=== PATIENT | male | born 1980 | race Caucasian/White ===

== ENCOUNTER → 2018-01-09 08:59 | Outpatient (CLI) | payer MEDICARE, MEDICAID, SELFPAY ==
[2018-01-09 10:36] LABS: ALB/GLOB Ratio 0.9 RATIO (0.9-2.4); AST(SGOT) 66 U/L (15-37); Alanine Aminotransfer ALT/SGPT 106 U/L (16-61); Albumin, Serum 3.7 g/dL (3.2-5.0); Alkaline Phosphatase 75 U/L (45-117); Anion Gap 7 (5-15); BUN 25 mg/dL (7-18); BUN/Creat Ratio 18.9 RATIO (10-20); Calcium,Total 8.9 mg/dL (8.5-10.1); Chloride 103 mmol/L (98-107); Creatinine, Serum 1.32 mg/dL (0.70-1.30); EST Glomerular Filtration Rate 66 mL/min (>60); Est Glom Filt Rate - Afr Amer 79 mL/min (>60); Glucose 230 mg/dL (74-106); Potassium 4.2 mmol/L (3.5-5.1); Protein, Total 7.7 g/dL (6.4-8.2); Sodium Level 134 mmol/L (136-145); Thyroid Stim Hormone (TSH) 3.55 uIU/mL (0.358-3.74)
[2018-01-09 12:16] LABS: Hematocrit 45.6 % (40-54); Hemoglobin 15.5 g/dl (13.0-16.5); Mean Corpuscular Volume 88.2 fL (80-94); Mean Platelet Vol. 9.4 fl (6.2-12.0); Platelet Count 406 K/mm3 (150-450); RBC Distribution Width CV 12.9 % (11.6-14.6); RBC Distribution Width SD 41.1 fl (35.1-43.9); Red Blood Count 5.17 M/mm3 (4.6-6.2); White Blood Count 14.6 K/mm3 (4.4-11.0)
[2018-01-09 12:24] LABS: Scan Indicated on CBC? Y/N NO
== END ==
PROVIDERS: Family Provider Family Medicine; PCP Family Medicine; Visit Provider Psychiatry & Neurology Psychiatry
DX: Z79.899 Other long term (current) drug therapy (principal)
CPT/HCPCS: 36415; 80053; 80178; 84443; 85027

== ENCOUNTER → 2018-07-01 11:43 | Outpatient (CLI) | payer MEDICARE, MEDICAID, SELFPAY ==
[2018-07-01 14:08] LABS: ALB/GLOB Ratio 0.9 RATIO (0.9-2.4); AST(SGOT) 45 U/L (15-37); Alanine Aminotransfer ALT/SGPT 81 U/L (16-61); Albumin, Serum 3.8 g/dL (3.2-5.0); Alkaline Phosphatase 74 U/L (45-117); Anion Gap 10 (5-15); BUN 25 mg/dL (7-18); BUN/Creat Ratio 20.5 RATIO (10-20); Calcium,Total 9.5 mg/dL (8.5-10.1); Chloride 104 mmol/L (98-107); Creatinine, Serum 1.22 mg/dL (0.70-1.30); EST Glomerular Filtration Rate 72 mL/min (>60); Est Glom Filt Rate - Afr Amer 87 mL/min (>60); Globulin 4.2 g/dL (2.2-4.2); Glucose 383 mg/dL (74-106); Potassium 4.2 mmol/L (3.5-5.1); Sodium Level 138 mmol/L (136-145); T4 Free Direct 1.28 ng/dL (0.76-1.46); Thyroid Stim Hormone (TSH) 2.04 uIU/mL (0.358-3.74)
== END ==
PROVIDERS: Family Provider Family Medicine; PCP Family Medicine; Visit Provider Internal Medicine Endocrinology, Diabetes & Metabolism
DX: E03.9 Hypothyroidism, unspecified (principal); E11.9 Type 2 diabetes mellitus without complications
CPT/HCPCS: 36415; 80053; 84439; 84443

== ENCOUNTER → 2018-08-23 07:55 | Outpatient (CLI) | payer MEDICARE, MEDICAID, SELFPAY ==
[2018-08-23 11:08] LABS: ALB/GLOB Ratio 0.9 RATIO (0.9-2.4); AST(SGOT) 40 U/L (15-37); Alanine Aminotransfer ALT/SGPT 63 U/L (16-61); Albumin, Serum 3.7 g/dL (3.2-5.0); Alkaline Phosphatase 65 U/L (45-117); Anion Gap 5 (5-15); BUN 25 mg/dL (7-18); BUN/Creat Ratio 23.8 RATIO (10-20); Calcium,Total 9.1 mg/dL (8.5-10.1); Chloride 105 mmol/L (98-107); Creatinine, Serum 1.05 mg/dL (0.70-1.30); EST Glomerular Filtration Rate 85 mL/min (>60); Est Glom Filt Rate - Afr Amer 103 mL/min (>60); Globulin 3.9 g/dL (2.2-4.2); Glucose 164 mg/dL (74-106); Potassium 4.5 mmol/L (3.5-5.1); Protein, Total 7.6 g/dL (6.4-8.2); Sodium Level 139 mmol/L (136-145); T4 Free Direct 1.22 ng/dL (0.76-1.46); Thyroid Stim Hormone (TSH) 0.98 uIU/mL (0.358-3.74)
== END ==
PROVIDERS: Family Provider Family Medicine; PCP Family Medicine; Referring Provider Internal Medicine Endocrinology, Diabetes & Metabolism; Visit Provider Internal Medicine Endocrinology, Diabetes & Metabolism
DX: E03.9 Hypothyroidism, unspecified (principal); E11.9 Type 2 diabetes mellitus without complications
CPT/HCPCS: 36415; 80053; 84439; 84443

== ENCOUNTER → 2018-11-28 07:35 | Outpatient (CLI) | payer MEDICARE, MEDICAID, SELFPAY ==
[2018-11-28 11:23] LABS: AST(SGOT) 34 U/L (15-37); Alanine Aminotransfer ALT/SGPT 86 U/L (16-61); Albumin, Serum 3.8 g/dL (3.2-5.0); Alkaline Phosphatase 103 U/L (45-117); Anion Gap 9 (5-15); BUN 22 mg/dL (7-18); Calcium,Total 8.9 mg/dL (8.5-10.1); Chloride 103 mmol/L (98-107); Cholesterol 154 mg/dL (200); EST Glomerular Filtration Rate 80 mL/min (>60); Est Glom Filt Rate - Afr Amer 97 mL/min (>60); Globulin 3.8 g/dL (2.2-4.2); Glucose 356 mg/dL (74-106); High Density Lipoprotein 33 mg/dL; Potassium 4.2 mmol/L (3.5-5.1); Protein, Total 7.6 g/dL (6.4-8.2); Sodium Level 134 mmol/L (136-145); T4 Free Direct 1.38 ng/dL (0.76-1.46); Thyroid Stim Hormone (TSH) 3.37 uIU/mL (0.358-3.74); Triglycerides 357 mg/dL; Very Low Density Lipoprotein 71 mg/dL (5-40)
[2018-11-28 11:34] LABS: Hemoglobin A1c 9.2 % (4.2-6.3)
== END ==
LOC: LAB 07:39 → MTLAB 07:39
PROVIDERS: Family Provider Family Medicine; PCP Family Medicine; Referring Provider Internal Medicine Endocrinology, Diabetes & Metabolism; Visit Provider Internal Medicine Endocrinology, Diabetes & Metabolism
DX: E11.65 Type 2 diabetes mellitus with hyperglycemia (principal); R94.5 Abnormal results of liver function studies
CPT/HCPCS: 36415; 80053; 80061; 83036; 84439; 84443

== ENCOUNTER → 2018-12-12 12:28 | Outpatient (CLI) | payer MEDICARE, MEDICAID, SELFPAY ==
[2018-06-14 12:34] VITALS: BMI 32.8
== END ==
PROVIDERS: Family Provider Family Medicine; PCP Family Medicine
DX: Z79.899 Other long term (current) drug therapy (principal)
CPT/HCPCS: 36415; 80178

== ENCOUNTER → 2020-03-31 07:13 | Outpatient (CLI) | payer MEDICARE, MEDICAID, SELFPAY ==
[2019-05-13 09:27] VITALS: BMI 32.8
== END ==
PROVIDERS: PCP Family Medicine
DX: Z79.899 Other long term (current) drug therapy (principal)
CPT/HCPCS: 36415; 80178

== ENCOUNTER → 2020-04-28 | Outpatient (CLI) | payer MEDICARE, MEDICAID, SELFPAY ==
[2019-05-13 09:27] VITALS: BMI 32.8
[2020-04-28 10:28] LABS: Hematocrit 46.6 % (40-54); Hemoglobin 14.9 g/dL (13.0-16.5); Mean Corpuscular Hgb 29.6 pg (27.0-32.0); Mean Corpuscular Volume 92.5 fL (80-94); Mean Platelet Vol. 9.3 fl (6.2-12.0); Platelet Count 431 K/mm3 (150-450); RBC Distribution Width CV 12.6 % (11.6-14.6); RBC Distribution Width SD 42.5 fl (35.1-43.9); Red Blood Count 5.04 M/mm3 (4.6-6.2); White Blood Count 12.2 K/mm3 (4.4-11.0)
[2020-04-28 10:41] LABS: Vitamin D,25 Hydroxy 104.7 ng/mL
[2020-04-28 10:42] LABS: Microalbumin,Random Urine 12.2 mg/L (NO RANGE EST.)
[2020-04-28 10:54] LABS: AST(SGOT) 30 U/L (15-37); Alanine Aminotransfer ALT/SGPT 57 U/L (16-61); Albumin, Serum 3.9 g/dL (3.2-5.0); Alkaline Phosphatase 83 U/L (45-117); Anion Gap 3 (5-15); BUN 21 mg/dL (7-18); BUN/Creat Ratio 23.4 RATIO (10-20); Calcium,Total 9.2 mg/dL (8.5-10.1); Chloride 108 mmol/L (98-107); Cholesterol 127 mg/dL (200); EST Glomerular Filtration Rate 101 mL/min (>60); Est Glom Filt Rate - Afr Amer 122 mL/min (>60); Free T3 2.2 pg/mL (2.18-3.98); Globulin 4.1 g/dL (2.2-4.2); Glucose 151 mg/dL (74-106); High Density Lipoprotein 36 mg/dL; Potassium 3.7 mmol/L (3.5-5.1); Sodium Level 139 mmol/L (136-145); T4 Free Direct 1.36 ng/dL (0.76-1.46); Triglycerides 239 mg/dL; Very Low Density Lipoprotein 48 mg/dL (5-40)
== END | disposition home or self-care (01) ==
LOC: MTLAB 07:32
PROVIDERS: PCP Family Medicine; Referring Provider Internal Medicine Endocrinology, Diabetes & Metabolism; Visit Provider Internal Medicine Endocrinology, Diabetes & Metabolism
DX: E11.65 Type 2 diabetes mellitus with hyperglycemia (principal); E03.9 Hypothyroidism, unspecified; E78.1 Pure hyperglyceridemia; E55.9 Vitamin D deficiency, unspecified; Z91.19 Patient's noncompliance with other medical treatment and regimen
CPT/HCPCS: 36415; 80053; 80061; 82043; 82306; 84439; 84443; 84481; 85027

== ENCOUNTER → 2020-07-02 11:45 | Outpatient (CLI) | payer MEDICARE, MEDICAID, SELFPAY ==
[2019-05-13 09:27] VITALS: BMI 32.8
[2020-07-02 15:36] LABS: Hematocrit 45.2 % (40-54); Hemoglobin 14.1 g/dL (13.0-16.5); Mean Corp Hgb Conc 31.2 g/dL (32-36); Mean Corpuscular Hgb 28.5 pg (27.0-32.0); Mean Corpuscular Volume 91.3 fL (80-94); Mean Platelet Vol. 9.7 fl (6.2-12.0); Platelet Count 408 K/mm3 (150-450); RBC Distribution Width SD 43.2 fl (35.1-43.9); Red Blood Count 4.95 M/mm3 (4.6-6.2); White Blood Count 10.7 K/mm3 (4.4-11.0)
[2020-07-02 15:59] LABS: Lithium < 0.20 mmol/L (0.60-1.20)
[2020-07-02 16:07] LABS: ALB/GLOB Ratio 0.9 RATIO (0.9-2.4); AST(SGOT) 48 U/L (15-37); Alanine Aminotransfer ALT/SGPT 76 U/L (16-61); Albumin, Serum 3.5 g/dL (3.2-5.0); Alkaline Phosphatase 92 U/L (45-117); Anion Gap 6 (5-15); BUN 21 mg/dL (7-18); BUN/Creat Ratio 26.2 RATIO (10-20); Calcium,Total 8.7 mg/dL (8.5-10.1); Chloride 106 mmol/L (98-107); Cholesterol 164 mg/dL (200); EST Glomerular Filtration Rate 115 mL/min (>60); Est Glom Filt Rate - Afr Amer 139 mL/min (>60); Glucose 175 mg/dL (74-106); High Density Lipoprotein 42 mg/dL; Potassium 4.3 mmol/L (3.5-5.1); Protein, Total 7.5 g/dL (6.4-8.2); Sodium Level 139 mmol/L (136-145); Thyroid Stim Hormone (TSH) 0.09 uIU/mL (0.358-3.74); Triglycerides 227 mg/dL; Very Low Density Lipoprotein 45 mg/dL (5-40)
[2020-07-02 16:09] LABS: Hemoglobin A1c 12.3 % (3.8-5.6)
== END ==
PROVIDERS: PCP Family Medicine
DX: F19.10 Other psychoactive substance abuse, uncomplicated (principal); R53.83 Other fatigue; Z79.899 Other long term (current) drug therapy
CPT/HCPCS: 36415; 80053; 80061; 80178; 83036; 84443; 85027

== ENCOUNTER → 2020-09-08 08:09 | Outpatient (CLI) | payer MEDICARE, MEDICAID, SELFPAY ==
[2019-05-13 09:27] VITALS: BMI 32.8
[2020-09-08 10:27] LABS: Hemoglobin A1c 11.6 % (3.8-5.6)
[2020-09-08 10:49] LABS: AST(SGOT) 44 U/L (15-37); Alanine Aminotransfer ALT/SGPT 76 U/L (16-61); Alkaline Phosphatase 101 U/L (45-117); Anion Gap 8 (5-15); BUN 34 mg/dL (7-18); BUN/Creat Ratio 28.3 RATIO (10-20); Calcium,Total 9.2 mg/dL (8.5-10.1); Chloride 103 mmol/L (98-107); EST Glomerular Filtration Rate 72 mL/min (>60); Est Glom Filt Rate - Afr Amer 87 mL/min (>60); Globulin 4.2 g/dL (2.2-4.2); Glucose 299 mg/dL (74-106); Potassium 4.1 mmol/L (3.5-5.1); Protein, Total 8.2 g/dL (6.4-8.2); Sodium Level 135 mmol/L (136-145); Thyroid Stim Hormone (TSH) 1.74 uIU/mL (0.358-3.74)
== END ==
PROVIDERS: PCP Family Medicine; Referring Provider Internal Medicine Endocrinology, Diabetes & Metabolism; Visit Provider Internal Medicine Endocrinology, Diabetes & Metabolism
DX: E11.65 Type 2 diabetes mellitus with hyperglycemia (principal); E03.9 Hypothyroidism, unspecified; E78.1 Pure hyperglyceridemia; I10 Essential (primary) hypertension; Z91.19 Patient's noncompliance with other medical treatment and regimen
CPT/HCPCS: 36415; 80053; 83036; 84443

== ENCOUNTER → 2021-01-26 09:02 | Outpatient (CLI) | payer MEDICARE, MEDICAID, SELFPAY ==
[2019-05-13 09:27] VITALS: BMI 32.8
[2021-01-26 10:24] LABS: Hematocrit 45.7 % (40-54); Hemoglobin 14.9 g/dL (13.0-16.5); Mean Corp Hgb Conc 32.6 g/dL (32-36); Mean Corpuscular Hgb 30.1 pg (27.0-32.0); Mean Corpuscular Volume 92.3 fL (80-94); Mean Platelet Vol. 9.2 fl (6.2-12.0); Platelet Count 386 K/mm3 (150-450); RBC Distribution Width CV 13.3 % (11.6-14.6); RBC Distribution Width SD 44.9 fl (35.1-43.9); Red Blood Count 4.95 M/mm3 (4.6-6.2); White Blood Count 15.5 K/mm3 (4.4-11.0)
[2021-01-26 10:49] LABS: Vitamin D,25 Hydroxy 78.2 ng/mL
[2021-01-26 10:54] LABS: Hemoglobin A1c 9.8 % (3.8-5.6)
[2021-01-26 11:21] LABS: AST(SGOT) 72 U/L (15-37); Alanine Aminotransfer ALT/SGPT 108 U/L (16-61); Albumin, Serum 3.8 g/dL (3.2-5.0); Alkaline Phosphatase 71 U/L (45-117); Anion Gap 6 (5-15); BUN 21 mg/dL (7-18); BUN/Creat Ratio 21.7 RATIO (10-20); Calcium,Total 9.9 mg/dL (8.5-10.1); Chloride 106 mmol/L (98-107); Cholesterol 122 mg/dL (200); Creatinine, Serum 0.97 mg/dL (0.70-1.30); EST Glomerular Filtration Rate 92 mL/min (>60); Est Glom Filt Rate - Afr Amer 111 mL/min (>60); Glucose 157 mg/dL (74-106); High Density Lipoprotein 47 mg/dL; Potassium 4.1 mmol/L (3.5-5.1); Protein, Total 7.8 g/dL (6.4-8.2); Sodium Level 138 mmol/L (136-145); Thyroid Stim Hormone (TSH) 0.86 uIU/mL (0.358-3.74); Triglycerides 167 mg/dL; Very Low Density Lipoprotein 33 mg/dL (5-40)
== END ==
PROVIDERS: PCP Family Medicine
DX: E55.9 Vitamin D deficiency, unspecified (principal); F19.10 Other psychoactive substance abuse, uncomplicated; R53.83 Other fatigue; E78.2 Mixed hyperlipidemia; E11.65 Type 2 diabetes mellitus with hyperglycemia; E78.1 Pure hyperglyceridemia; E03.9 Hypothyroidism, unspecified; Z79.899 Other long term (current) drug therapy; Z91.19 Patient's noncompliance with other medical treatment and regimen
CPT/HCPCS: 36415; 80053; 80061; 80178; 82043; 82306; 83036; 84443; 85027

== ENCOUNTER → 2021-04-28 16:31 | Outpatient (CLI) | payer MEDICARE, MEDICAID, SELFPAY ==
[2019-05-13 09:27] VITALS: BMI 32.8
[2021-04-28 18:17] LABS: Microalbumin,Random Urine < 5.0 mg/L (NO RANGE EST.)
[2021-04-28 18:45] LABS: ALB/GLOB Ratio 1.2 RATIO (0.9-2.4); AST(SGOT) 109 U/L (15-37); Alanine Aminotransfer ALT/SGPT 154 U/L (16-61); Albumin, Serum 4.4 g/dL (3.2-5.0); Alkaline Phosphatase 85 U/L (45-117); Anion Gap 9 (5-15); BUN 22 mg/dL (7-18); BUN/Creat Ratio 18.3 RATIO (10-20); Calcium,Total 10.1 mg/dL (8.5-10.1); Chloride 98 mmol/L (98-107); EST Glomerular Filtration Rate 72 mL/min (>60); Est Glom Filt Rate - Afr Amer 87 mL/min (>60); Globulin 3.7 g/dL (2.2-4.2); Glucose 391 mg/dL (74-106); Potassium 4.9 mmol/L (3.5-5.1); Protein, Total 8.1 g/dL (6.4-8.2); Sodium Level 134 mmol/L (136-145); T4 Free Direct 1.44 ng/dL (0.76-1.46); Thyroid Stim Hormone (TSH) 1.29 uIU/mL (0.358-3.74)
== END ==
PROVIDERS: PCP Family Medicine; Referring Provider Internal Medicine Endocrinology, Diabetes & Metabolism; Visit Provider Internal Medicine Endocrinology, Diabetes & Metabolism
DX: E11.65 Type 2 diabetes mellitus with hyperglycemia (principal); E03.9 Hypothyroidism, unspecified; I10 Essential (primary) hypertension; F19.20 Other psychoactive substance dependence, uncomplicated; F31.9 Bipolar disorder, unspecified
CPT/HCPCS: 36415; 80053; 82043; 84439; 84443

== ENCOUNTER → 2021-05-18 08:22 | Outpatient (CLI) | payer MEDICARE, MEDICAID, SELFPAY ==
[2021-05-02 06:43] VITALS: BMI 32.8
[2021-05-19 09:10] LABS: HEPATITIS B SURFACE AG Negative (Negative); Hepatitis A AB, Total Negative (Negative); Hepatitis A IgM Antibody Negative (Negative); Hepatitis B Core AB IgM Negative (Negative); Hepatitis B Core Ab Total Negative (Negative); Hepatitis C Ab <0.1 s/co ratio (0.0-0.9)
[2021-05-19 16:49] LABS: Hep B Surface Antibodies Non Reactive (.)
== END ==
PROVIDERS: PCP Family Medicine; Referring Provider Internal Medicine Endocrinology, Diabetes & Metabolism; Visit Provider Internal Medicine Endocrinology, Diabetes & Metabolism
DX: R79.89 Other specified abnormal findings of blood chemistry (principal)
CPT/HCPCS: 36415; 86704; 86705; 86706; 86708; 86709; 86803; 87340

== ENCOUNTER → 2021-08-03 09:54 | Outpatient (CLI) | payer MEDICARE, MEDICAID, SELFPAY ==
[2021-08-03 12:30] LABS: Hematocrit 43.9 % (40-54); Hemoglobin 14.1 g/dL (13.0-16.5); Mean Corp Hgb Conc 32.1 g/dL (32-36); Mean Corpuscular Hgb 29.4 pg (27.0-32.0); Mean Corpuscular Volume 91.5 fL (80-94); Mean Platelet Vol. 9.5 fl (6.2-12.0); Platelet Count 434 K/mm3 (150-450); RBC Distribution Width CV 13.2 % (11.6-14.6); RBC Distribution Width SD 45.4 fl (35.1-43.9); White Blood Count 11.3 K/mm3 (4.4-11.0)
[2021-08-03 13:01] LABS: Hemoglobin A1c 10.6 % (3.8-5.6)
[2021-08-03 13:08] LABS: ALB/GLOB Ratio 0.8 RATIO (0.9-2.4); AST(SGOT) 45 U/L (15-37); Alanine Aminotransfer ALT/SGPT 90 U/L (16-61); Albumin, Serum 3.6 g/dL (3.2-5.0); Alkaline Phosphatase 121 U/L (45-117); Anion Gap 8 (5-15); BUN 35 mg/dL (7-18); BUN/Creat Ratio 34.7 RATIO (10-20); Calcium,Total 9.6 mg/dL (8.5-10.1); Chloride 97 mmol/L (98-107); Cholesterol 108 mg/dL (200); Creatinine, Serum 1.01 mg/dL (0.70-1.30); EST Glomerular Filtration Rate 88 mL/min (>60); Est Glom Filt Rate - Afr Amer 106 mL/min (>60); Globulin 4.3 g/dL (2.2-4.2); Glucose 627 mg/dL (74-106); High Density Lipoprotein 46 mg/dL; Potassium 4.4 mmol/L (3.5-5.1); Protein, Total 7.9 g/dL (6.4-8.2); Sodium Level 129 mmol/L (136-145); Thyroid Stim Hormone (TSH) 0.75 uIU/mL (0.358-3.74); Triglycerides 184 mg/dL; Very Low Density Lipoprotein 37 mg/dL (5-40)
== END ==
PROVIDERS: PCP Family Medicine
DX: F19.10 Other psychoactive substance abuse, uncomplicated (principal); R53.83 Other fatigue; E55.9 Vitamin D deficiency, unspecified; E78.5 Hyperlipidemia, unspecified; Z79.899 Other long term (current) drug therapy
CPT/HCPCS: 36415; 80053; 80061; 80178; 83036; 84439; 84443; 85027

== ENCOUNTER 2021-11-28 08:02 | Outpatient (CLI) | payer MEDICARE, MEDICAID, SELFPAY ==
[2021-11-28 10:44] LABS: Vitamin D,25 Hydroxy 90.2 ng/mL
[2021-11-28 10:49] LABS: ALB/GLOB Ratio 0.9 RATIO (0.9-2.4); AST(SGOT) 46 U/L (15-37); Alanine Aminotransfer ALT/SGPT 79 U/L (16-61); Albumin, Serum 3.8 g/dL (3.2-5.0); Alkaline Phosphatase 89 U/L (45-117); Anion Gap 6 (5-15); BUN 30 mg/dL (7-18); BUN/Creat Ratio 23.4 RATIO (10-20); Calcium,Total 9.6 mg/dL (8.5-10.1); Chloride 100 mmol/L (98-107); Cholesterol 119 mg/dL (200); Creatinine, Serum 1.28 mg/dL (0.70-1.30); EST Glomerular Filtration Rate 66 mL/min (>60); Est Glom Filt Rate - Afr Amer 80 mL/min (>60); Globulin 4.4 g/dL (2.2-4.2); Glucose 395 mg/dL (74-106); High Density Lipoprotein 40 mg/dL; Potassium 4.4 mmol/L (3.5-5.1); Protein, Total 8.2 g/dL (6.4-8.2); Sodium Level 133 mmol/L (136-145); Thyroid Stim Hormone (TSH) 0.99 uIU/mL (0.358-3.74); Triglycerides 184 mg/dL; Very Low Density Lipoprotein 37 mg/dL (5-40)
[2021-11-28 10:56] LABS: Microalbumin,Random Urine < 5.0 mg/L (NO RANGE EST.)
== END 2021-11-28 23:59 | disposition short-term general hospital (02) ==
LOC: MTLAB 08:04
PROVIDERS: PCP Family Medicine; Referring Provider Internal Medicine Endocrinology, Diabetes & Metabolism; Visit Provider Internal Medicine Endocrinology, Diabetes & Metabolism
DX: E11.65 Type 2 diabetes mellitus with hyperglycemia (principal); E03.9 Hypothyroidism, unspecified; E55.9 Vitamin D deficiency, unspecified; I10 Essential (primary) hypertension; Z91.19 Patient's noncompliance with other medical treatment and regimen
CPT/HCPCS: 36415; 80053; 80061; 82043; 82306; 82570; 84443

== ENCOUNTER → 2022-05-01 | Outpatient (CLI) | payer MEDICARE, SELFPAY ==
[2022-05-01 18:16] LABS: Absolute Lymphocyte Count 3.36 X10^3/uL (0.83-4.51); Absolute Neutrophil Count 5.8 X10^3/uL (2.0-7.7); Basophil% 0.9 % (0-1); Eosinophil# 0.98 X10^3/uL; Eosinophils% 8.7 % (0-5); Hemoglobin 13.6 g/dL (13.0-16.5); Lymphocyte # 3.36 X10^3/ul (0.83-4.51); Lymphocyte % 29.8 % (19-41); Mean Corp Hgb Conc 30.9 g/dL (32-36); Mean Corpuscular Hgb 27.9 pg (27.0-32.0); Mean Corpuscular Volume 90.3 fL (80-94); Mean Platelet Vol. 9.4 fl (6.2-12.0); Monocyte# 1.01 X10^3/uL; NRBC Flagged by Analyzer 0 % (0-5); Neutrophil # 5.79 X10^3/uL (2.7-7.7); Neutrophil % 51.3 % (47-70); Platelet Count 429 K/mm3 (150-450); RBC Distribution Width CV 14.6 % (11.6-14.6); RBC Distribution Width SD 48.6 fl (35.1-43.9); Red Blood Count 4.87 M/mm3 (4.6-6.2); White Blood Count 11.3 K/mm3 (4.4-11.0)
[2022-05-01 18:37] LABS: Vitamin D,25 Hydroxy 66.5 ng/mL
[2022-05-01 18:41] LABS: AST(SGOT) 47 U/L (15-37); Alanine Aminotransfer ALT/SGPT 59 U/L (16-61); Albumin, Serum 3.7 g/dL (3.2-5.0); Alkaline Phosphatase 69 U/L (45-117); Anion Gap 6 (5-15); BUN 23 mg/dL (7-18); BUN/Creat Ratio 21.1 RATIO (10-20); Calcium,Total 9.2 mg/dL (8.5-10.1); Chloride 112 mmol/L (98-107); Cholesterol 133 mg/dL (200); Creatinine, Serum 1.09 mg/dL (0.70-1.30); EST Glomerular Filtration Rate 80 mL/min (>60); Est Glom Filt Rate - Afr Amer 97 mL/min (>60); Globulin 3.8 g/dL (2.2-4.2); Glucose 196 mg/dL (74-106); High Density Lipoprotein 47 mg/dL; Potassium 4.4 mmol/L (3.5-5.1); Protein, Total 7.5 g/dL (6.4-8.2); Sodium Level 141 mmol/L (136-145); T4 Free Direct 1.12 ng/dL (0.76-1.46); Thyroid Stim Hormone (TSH) 0.44 uIU/mL (0.358-3.74); Triglycerides 154 mg/dL; Very Low Density Lipoprotein 31 mg/dL (5-40)
[2022-05-01 18:46] LABS: Hemoglobin A1c 9.7 % (3.8-5.6)
== END | disposition home or self-care (01) ==
PROVIDERS: PCP Family Medicine; Referring Provider Counselor Mental Health; Visit Provider Counselor Mental Health
DX: E55.9 Vitamin D deficiency, unspecified (principal); F19.10 Other psychoactive substance abuse, uncomplicated; R53.83 Other fatigue; Z79.899 Other long term (current) drug therapy
CPT/HCPCS: 80053; 80061; 80178; 82306; 83036; 84439; 84443; 85025

== ENCOUNTER → 2022-10-19 | Outpatient (CLI) | payer MEDICARE, SELFPAY ==
[2022-10-19 15:41] LABS: T4 Free Direct 1.32 ng/dL (0.76-1.46)
== END | disposition home or self-care (01) ==
PROVIDERS: PCP Family Medicine; Referring Provider Nurse Practitioner Family; Visit Provider Nurse Practitioner Family
DX: E11.9 Type 2 diabetes mellitus without complications (principal)
CPT/HCPCS: 36415; 84439; 84443

== ENCOUNTER → 2023-05-02 | Outpatient (CLI) | payer MEDICARE, SELFPAY ==
[2023-05-02 18:00] LABS: ALB/GLOB Ratio 0.8 RATIO (0.9-2.4); AST(SGOT) 85 U/L (15-37); Alanine Aminotransfer ALT/SGPT 204 U/L (16-61); Albumin, Serum 3.4 g/dL (3.2-5.0); Alkaline Phosphatase 117 U/L (45-117); Anion Gap 2 (5-15); BUN 27 mg/dL (7-18); BUN/Creat Ratio 28.5 RATIO (10-20); Calcium,Total 9.6 mg/dL (8.5-10.1); Chloride 112 mmol/L (98-107); Cholesterol 91 mg/dL (200); Creatinine, Serum 0.95 mg/dL (0.70-1.30); EST Glomerular Filtration Rate 94 mL/min (>60); Est Glom Filt Rate - Afr Amer 113 mL/min (>60); Globulin 4.3 g/dL (2.2-4.2); Glucose 91 mg/dL (74-106); High Density Lipoprotein 44 mg/dL; Potassium 4.4 mmol/L (3.5-5.1); Protein, Total 7.7 g/dL (6.4-8.2); Sodium Level 139 mmol/L (136-145); T4 Free Direct 1.14 ng/dL (0.76-1.46); Thyroid Stim Hormone (TSH) 2.68 uIU/mL (0.358-3.74); Triglycerides 129 mg/dL; Very Low Density Lipoprotein 26 mg/dL (5-40)
[2023-05-02 18:22] LABS: Microalbumin:Creatinine Ratio 79.8 mg/g CRE (<30 mg/g CRE)
== END | disposition home or self-care (01) ==
LOC: MTLAB 14:49
PROVIDERS: PCP Family Medicine; Referring Provider Nurse Practitioner Family; Visit Provider Nurse Practitioner Family
DX: E03.9 Hypothyroidism, unspecified (principal); E11.9 Type 2 diabetes mellitus without complications
CPT/HCPCS: 36415; 80053; 80061; 82043; 82570; 84439; 84443

== ENCOUNTER → 2023-09-24 | Outpatient (CLI) | payer MEDICARE, SELFPAY ==
[2023-09-24 09:36] LABS: Platelet Count 367 K/mm3 (150-450); RET-HE 30.8 pg (30-35); Reticulocyte Count 1.78 % (0.5-1.5)
[2023-09-24 09:40] LABS: Erythrocyte Sedimentation Rate 36 mm/hr (0-20)
[2023-09-24 10:26] LABS: CPK Total, Creatine Kinase 42 U/L (39-308); CRP < 2.90 mg/L (0.0-3.0); Ferritin 20 ng/mL (26-388); Free T3 1.7 pg/mL (2.18-3.98); Iron Binding Capacity,Total 417 ug/dL (250-450); LDH 159 U/L (87-241); T4 Free Direct 1.26 ng/dL (0.76-1.46); Thyroid Stim Hormone (TSH) 1.17 uIU/mL (0.358-3.74)
[2023-09-24 10:34] LABS: HIV - WCH Non-Reactive (Nonreactive)
[2023-09-25 15:08] LABS: Anti-Centromere B Ab <0.2 AI (0.0-0.9); Anti-Chromatin <0.2 AI (0.0-0.9); Anti-Jo <0.2 AI (0.0-0.9); Anti-Mitochondrial AB <20.0 Units (0.0-20.0); Anti-Scleroderma-70 AB <0.2 AI (0.0-0.9); Anti-dsDNA Ab <1 IU/mL (0-9); RNP Ab <0.2 AI (0.0-0.9); SJOGREN'S Anti-SS-A test 0.2 AI (0.0-0.9); SJOGREN'S Anti-SS-B test < 0.2 AI (0.0-0.9); Smith Ab <0.2 AI (0.0-0.9)
[2023-10-04 18:07] LABS: Albumin 3.6 g/dL (2.9-4.4); Alpha-1-Globulins 0.2 g/dL (0.0-0.4); Angiotensin Convert Enzyme 40 U/L (14-82); Anti-Smooth Muscle ABS 10 Units (0-19); Ceruloplasmin 30.4 mg/dL (16.0-31.0); Copper, Serum or Plasma 135 ug/dL (69-132); Cytoplasmic Ab (C-ANCA) <1:20 titer (Neg:<1:20); Endomysial Antibody IgA Negative (Negative); Gamma Globulin 1.1 g/dL (0.4-1.8); Haptoglobin 261 mg/dL (17-317); Immunoglobulin A 543 mg/dL (90-386); Immunoglobulin G 1041 mg/dL (603-1613); Immunoglobulin M 75 mg/dL (20-172); PROEL- TOTAL PROTEIN 7.3 g/dL (6.0-8.5); Perinuclear Ab (P-ANCA) <1:20 titer (Neg:<1:20); Transferrin 328 mg/dL (177-329); t-Transglutaminase IgA <2 U/mL (0-3)
== END | disposition home or self-care (01) ==
LOC: LAB 09:06
PROVIDERS: PCP Family Medicine; Referring Provider Internal Medicine Gastroenterology; Visit Provider Internal Medicine Gastroenterology
DX: R74.8 Abnormal levels of other serum enzymes (principal); E11.3299 Type 2 diabetes mellitus 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, unspecified eye; L73.9 Follicular disorder, unspecified
CPT/HCPCS: 36415; 82164; 82390; 82525; 82550; 82728; 82784; 83010; 83516; 83550; 83615; 84165; 84439; 84443; 84466; 84481; 85045; 85652; 86140; 86225; 86235; 86255; 86256; 86334; 86703

== ENCOUNTER → 2024-02-21 | Outpatient (CLI) | payer MEDICARE, SELFPAY ==
--- NOTE | 2024-02-21 08:29 | US_ITS ---
STUDY: ABDOMINAL ULTRASOUND - RIGHT UPPER QUADRANT; ELASTOGRAPHY REASON FOR VISIT: Male, 43 years old. Elevated liver enzymes. TECHNIQUE: Ultrasound evaluation of the right upper quadrant was performed with real-time and static marion-scale imaging. Point quantification shear wave elastography was performed (i-nexus). TECHNICAL QUALITY: Adequate. COMPARISON: None. FINDINGS: Liver: The liver measures 16.8 cm. There is normal echogenicity of the liver. The bile ducts are within normal limits. There is hepatic color flow. The direction of portal flow is hepatopetal. There is no demonstrated mass lesion. Median liver stiffness measured 8.2 kPa. Gallbladder: Normal distended gallbladder. The gallbladder wall measures 2.7 mm. There is a negative sonographic Mcnair''s sign. There is no pericholecystic fluid. There is a solitary echogenic gallstone within the gallbladder. This measures 5 mm x 4 mm x 3 mm. Common Bile Duct (C.B.D.): The common bile duct measures 4.3 mm. Pancreas: The pancreas was obscured due to overlying bowel gas. Right Kidney: Normal size of the right kidney. The right kidney measures 11.9 cm x 6.4 cm x 5.7 cm. Normal renal cortex. The right cortex measures 1.6 cm. There is no demonstrated renal mass or cyst. There is no right hydronephrosis. US/ABD Limited w/ Elastography IMPRESSION: 1. Liver stiffness measures 8.2 kPa compatible with F2-F3 (Mild to moderate liver fibrosis) Metavir score. Electronically Signed: Beto Mccormick MD at 16:15 EDT ,
[2024-02-21 09:36] LABS: Absolute Lymphocyte Count 2.25 X10^3/uL (0.83-4.51); Absolute Neutrophil Count 7.6 X10^3/uL (2.0-7.7); Basophil# 0.12 X10^3/uL; Eosinophil# 1.34 X10^3/uL; Eosinophils% 10.7 % (0-5); Hematocrit 45.4 % (40-54); Hemoglobin 13.9 g/dL (13.0-16.5); Lymphocyte # 2.25 X10^3/ul (0.83-4.51); Lymphocyte % 17.9 % (19-41); Mean Corp Hgb Conc 30.6 g/dL (32-36); Mean Corpuscular Hgb 28.4 pg (27.0-32.0); Mean Corpuscular Volume 92.8 fL (80-94); Mean Platelet Vol. 8.8 fl (6.2-12.0); Monocyte# 1.18 X10^3/uL; Monocyte% 9.4 % (0-10); NRBC Flagged by Analyzer 0 % (0-5); Neutrophil % 60.4 % (47-70); Platelet Count 449 K/mm3 (150-450); RBC Distribution Width CV 14.3 % (11.6-14.6); RBC Distribution Width SD 47.9 fl (35.1-43.9); RET-HE 33.4 pg (30-35); Red Blood Count 4.89 M/mm3 (4.6-6.2); Reticulocyte Count 1.97 % (0.5-1.5); White Blood Count 12.6 K/mm3 (4.4-11.0)
[2024-02-21 10:05] LABS: Erythrocyte Sedimentation Rate 36 mm/hr (0-20)
[2024-02-21 10:44] LABS: CPK Total, Creatine Kinase 35 U/L (39-308); CRP < 2.90 mg/L (0.0-3.0); Ferritin 11 ng/mL (26-388); Iron 70 ug/dL (65-175); Iron Binding Capacity,Total 521 ug/dL (250-450); LDH 140 U/L (87-241)
[2024-02-21 11:16] LABS: HIV - WCH Non-Reactive (Nonreactive)
[2024-02-22 14:09] LABS: Anti-Mitochondrial AB <20.0 Units (0.0-20.0)
[2024-02-29 13:08] LABS: Albumin 3.7 g/dL (2.9-4.4); Alpha-1-Globulins 0.2 g/dL (0.0-0.4); Anti-Smooth Muscle ABS 11 Units (0-19); Gamma Globulin 0.9 g/dL (0.4-1.8); HEPATITIS B SURFACE AG Negative (Negative); Haptoglobin 243 mg/dL (23-355); Hep C Antibodies Non Reactive (Non Reactive); Hepatitis A IgM Antibody Negative (Negative); Hepatitis B Core AB IgM Negative (Negative); Immunoglobulin A 472 mg/dL (90-386); Immunoglobulin E 309 IU/mL (6-495); Immunoglobulin G 969 mg/dL (603-1613); Immunoglobulin M 58 mg/dL (20-172); PROEL- TOTAL PROTEIN 7.1 g/dL (6.0-8.5)
== END | disposition home or self-care (01) ==
PROVIDERS: PCP Family Medicine; Referring Provider Internal Medicine Gastroenterology; Visit Provider Internal Medicine Gastroenterology
DX: R74.8 Abnormal levels of other serum enzymes (principal); E11.3299 Type 2 diabetes mellitus 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, unspecified eye; K75.9 Inflammatory liver disease, unspecified; L73.9 Follicular disorder, unspecified
CPT/HCPCS: 36415; 76705; 76981; 80074; 82085; 82550; 82728; 82784; 82785; 83010; 83516; 83540; 83550; 83615; 84165; 85025; 85045; 85652; 86140; 86334; 86703

== ENCOUNTER → 2024-04-17 | Outpatient (CLI) | payer MEDICARE, MEDICAID, SELFPAY ==
[2024-04-17 14:43] LABS: Hematocrit 46.1 % (40-54); Hemoglobin 13.8 g/dL (13.0-16.5); Mean Corp Hgb Conc 29.9 g/dL (32-36); Mean Corpuscular Hgb 27.8 pg (27.0-32.0); Mean Corpuscular Volume 92.9 fL (80-94); Mean Platelet Vol. 8.9 fl (6.2-12.0); Platelet Count 419 K/mm3 (150-450); RBC Distribution Width CV 13.9 % (11.6-14.6); RBC Distribution Width SD 46.8 fl (35.1-43.9); Red Blood Count 4.96 M/mm3 (4.6-6.2); White Blood Count 12.9 K/mm3 (4.4-11.0)
[2024-04-17 16:14] LABS: ALB/GLOB Ratio 0.9 RATIO (0.9-2.4); AST(SGOT) 68 U/L (15-37); Alanine Aminotransfer ALT/SGPT 137 U/L (16-61); Albumin, Serum 3.7 g/dL (3.2-5.0); Alkaline Phosphatase 120 U/L (45-117); Anion Gap 7 (5-15); BUN 20 mg/dL (7-18); BUN/Creat Ratio 26.2 RATIO (10-20); Calcium,Total 10.4 mg/dL (8.5-10.1); Chloride 103 mmol/L (98-107); Creatinine, Serum 0.76 mg/dL (0.70-1.30); EST Glomerular Filtration Rate 119 mL/min (>60); Est Glom Filt Rate - Afr Amer 145 mL/min (>60); Globulin 3.9 g/dL (2.2-4.2); Glucose 72 mg/dL (74-106); Potassium 3.7 mmol/L (3.5-5.1); Protein, Total 7.6 g/dL (6.4-8.2); Sodium Level 137 mmol/L (136-145); Thyroid Stim Hormone (TSH) 1.28 uIU/mL (0.358-3.74)
== END | disposition home or self-care (01) ==
LOC: MTLAB 11:47
PROVIDERS: PCP Family Medicine; Referring Provider Counselor Mental Health; Visit Provider Counselor Mental Health
DX: Z79.899 Other long term (current) drug therapy (principal)
CPT/HCPCS: 36415; 80053; 80178; 84443; 85027

== ENCOUNTER → 2024-04-25 | Outpatient (CLI) | payer MEDICARE, MEDICAID, SELFPAY ==
[2024-04-25 15:59] LABS: PTHIN 31.3 pg/mL (18.4-80.1)
[2024-04-25 16:23] LABS: AST(SGOT) 39 U/L (15-37); Alanine Aminotransfer ALT/SGPT 149 U/L (16-61); Albumin, Serum 3.9 g/dL (3.2-5.0); Alkaline Phosphatase 124 U/L (45-117); Anion Gap 9 (5-15); BUN 33 mg/dL (7-18); BUN/Creat Ratio 37.2 RATIO (10-20); Calcium,Total 9.8 mg/dL (8.5-10.1); Chloride 98 mmol/L (98-107); Cholesterol 95 mg/dL (200); Creatinine, Serum 0.89 mg/dL (0.70-1.30); EST Glomerular Filtration Rate 100 mL/min (>60); Est Glom Filt Rate - Afr Amer 121 mL/min (>60); Globulin 3.9 g/dL (2.2-4.2); Glucose 462 mg/dL (74-106); High Density Lipoprotein 43 mg/dL; Potassium 4.5 mmol/L (3.5-5.1); Protein, Total 7.8 g/dL (6.4-8.2); Sodium Level 131 mmol/L (136-145); Triglycerides 175 mg/dL; Very Low Density Lipoprotein 35 mg/dL (5-40)
== END | disposition home or self-care (01) ==
PROVIDERS: PCP Family Medicine; Referring Provider Family Medicine; Visit Provider Family Medicine
DX: E11.69 Type 2 diabetes mellitus with other specified complication (principal); E83.52 Hypercalcemia
CPT/HCPCS: 36415; 80053; 80061; 83970

== ENCOUNTER 2024-05-13 12:42 | Outpatient (CLI) | payer MEDICARE, MEDICAID, SELFPAY ==
[2024-05-13 16:24] LABS: ALB/GLOB Ratio 0.9 RATIO (0.9-2.4); AST(SGOT) 35 U/L (15-37); Alanine Aminotransfer ALT/SGPT 69 U/L (16-61); Albumin, Serum 3.7 g/dL (3.2-5.0); Alkaline Phosphatase 139 U/L (45-117); Anion Gap 7 (5-15); BUN 47 mg/dL (7-18); BUN/Creat Ratio 46.1 RATIO (10-20); CPK Total, Creatine Kinase 50 U/L (39-308); Calcium,Total 9.6 mg/dL (8.5-10.1); Chloride 97 mmol/L (98-107); Creatinine, Serum 1.02 mg/dL (0.70-1.30); EST Glomerular Filtration Rate 85 mL/min (>60); Est Glom Filt Rate - Afr Amer 103 mL/min (>60); Ferritin 28 ng/mL (26-388); Globulin 3.9 g/dL (2.2-4.2); Glucose 591 mg/dL (74-106); Magnesium 2.5 mg/dL (1.6-2.6); Potassium 5.1 mmol/L (3.5-5.1); Protein, Total 7.6 g/dL (6.4-8.2); Sodium Level 125 mmol/L (136-145); Thyroid Stim Hormone (TSH) 2.98 uIU/mL (0.358-3.74)
== END 2024-05-13 23:59 | disposition home or self-care (01) ==
LOC: MTLAB 12:47
PROVIDERS: PCP Family Medicine; Referring Provider Family Medicine; Visit Provider Family Medicine
DX: M79.10 Myalgia, unspecified site (principal)
CPT/HCPCS: 36415; 80053; 82550; 82728; 83735; 84443

== ENCOUNTER → 2024-05-23 | Outpatient (CLI) | payer MEDICARE, MEDICAID, SELFPAY ==
--- NOTE | 2024-05-23 14:11 | RAD_ITS ---
STUDY: X-RAY - LUMBAR SPINE REASON FOR EXAM: Male, 43 years old. radiculopathy, lumbar region TECHNIQUE: 2 view(s) of the lumbar spine were obtained. COMPARISON: None FINDINGS: Normal lumbar lordosis. There is no substantial scoliosis. There is a normal alignment of the vertebrae. Normal vertebral bodies and endplates. Normal disc space heights. The soft tissue structures are unremarkable. RAD/Lumbar Spine 2 or 3 Views IMPRESSION: Normal x-ray examination of the lumbar spine. Electronically Signed: Ezequiel Blair MD at 17:58 EDT ,
[2024-05-23 15:43] LABS: Albumin, Serum 3.5 g/dL (3.2-5.0); BUN 21 mg/dL (7-18); BUN/Creat Ratio 34.3 RATIO (10-20); Calcium,Total 9.5 mg/dL (8.5-10.1); Chloride 106 mmol/L (98-107); Creatinine, Serum 0.61 mg/dL (0.70-1.30); EST Glomerular Filtration Rate 154 mL/min (>60); Est Glom Filt Rate - Afr Amer 186 mL/min (>60); Free T3 1.6 pg/mL (2.18-3.98); Glucose 150 mg/dL (74-106); Phosphorus 3.2 mg/dL (2.5-4.9); Potassium 4.4 mmol/L (3.5-5.1); Sodium Level 138 mmol/L (136-145); T4 Free Direct 1.22 ng/dL (0.76-1.46); Thyroid Stim Hormone (TSH) 1.96 uIU/mL (0.358-3.74)
== END | disposition home or self-care (01) ==
PROVIDERS: PCP Family Medicine; Referring Provider Counselor Mental Health; Visit Provider Counselor Mental Health
DX: Z79.899 Other long term (current) drug therapy (principal)
CPT/HCPCS: 36415; 72100; 80069; 80178; 84439; 84443; 84481

== ENCOUNTER → 2024-06-12 | Outpatient (CLI) | payer MEDICARE, SELFPAY ==
--- NOTE | 2024-06-12 06:57 | MRI_ITS ---
STUDY: MRI LUMBAR SPINE WITH AND WITHOUT CONTRAST REASON FOR EXAM: Male, 43 years old. Back pain and left leg pain. TECHNIQUE: Standardized fat and water weighted pulse sequences were obtained in the sagittal and axial planes. IV 17ml Clariscan was administered for the contrast portion of the examination. COMPARISON: Lumbar spine radiographs 05/23/2024. FINDINGS: T12-L1: (Sagittal only). Normal endplates. Normal disc height, hydration and morphology. No ventral extradural defect. Normal central canal and bilateral intervertebral neural foramina. Normal lumbar lordosis. There is no substantial scoliosis. Normal conus medullaris that terminates at the lower T12 vertebral body level. L1-2: Normal endplates. Normal disc height, hydration and morphology. Normal bilateral facet joints. Normal central canal and bilateral lateral recesses. Normal bilateral intervertebral neural foramina. L2-3: Normal endplates. Normal disc height, hydration and morphology. Normal bilateral facet joints. Normal central canal and bilateral lateral recesses. Normal bilateral intervertebral neural foramina. L3-4: Normal endplates. Normal disc height, hydration and morphology. Normal bilateral facet joints. Normal central canal and bilateral lateral recesses. Normal bilateral intervertebral neural foramina. L4-5: Normal endplates. Normal disc height, hydration and morphology. Normal bilateral facet joints. Normal central canal and bilateral lateral recesses. Normal bilateral intervertebral neural foramina. L5-S1: Normal endplates. Mild disc space height narrowing with minimal degenerative vacuum phenomenon. Normal facet joints. Normal central canal and bilateral lateral recesses. Normal bilateral intervertebral neuroforamina. Normal visualized sacral ala. Normal visualized paraspinous soft tissue structures. Following IV contrast administration, there are no abnormally enhancing lesions intradurally and extradurally. MRI/Spine Lumbar W/WO Contrast IMPRESSION: 1. Normal enhanced and unenhanced MR examination of the lumbar spine. 2. No Modic changes of the vertebral endplates throughout the lumbar spine. Electronically Signed: Gabriele Garcia MD at 9:45 EDT ,
== END | disposition home or self-care (01) ==
PROVIDERS: PCP Family Medicine; Referring Provider Family Medicine; Visit Provider Family Medicine
DX: M54.16 Radiculopathy, lumbar region (principal)
CPT/HCPCS: 72158; A9575

== ENCOUNTER → 2024-08-22 | Outpatient (CLI) | payer MEDICARE, MEDICAID, SELFPAY ==
[2024-08-22 17:42] LABS: Absolute Neutrophil Count 5.8 X10^3/uL (2.0-7.7); Basophil# 0.07 X10^3/uL; Basophil% 0.8 % (0-1); Eosinophil# 0.56 X10^3/uL; Eosinophils% 6.3 % (0-5); Hematocrit 45.8 % (40-54); Mean Corp Hgb Conc 30.6 g/dL (32-36); Mean Corpuscular Hgb 28.7 pg (27.0-32.0); Mean Corpuscular Volume 93.9 fL (80-94); Mean Platelet Vol. 8.8 fl (6.2-12.0); Monocyte# 0.69 X10^3/uL; Monocyte% 7.7 % (0-10); NRBC Flagged by Analyzer 0 % (0-5); Neutrophil # 5.84 X10^3/uL (2.7-7.7); Neutrophil % 65.2 % (47-70); Platelet Count 510 K/mm3 (150-450); RBC Distribution Width CV 13.6 % (11.6-14.6); RBC Distribution Width SD 46.5 fl (35.1-43.9); Red Blood Count 4.88 M/mm3 (4.6-6.2)
[2024-08-22 18:03] LABS: Vitamin D,25 Hydroxy 50.4 ng/mL
[2024-08-22 18:10] LABS: Cholesterol 122 mg/dL (200); High Density Lipoprotein 47 mg/dL; Triglycerides 152 mg/dL; Very Low Density Lipoprotein 30 mg/dL (5-40)
[2024-08-22 18:20] LABS: Microalbumin,Random Urine 64.4 mg/L (NO RANGE EST.); Microalbumin:Creatinine Ratio 147.7 mg/g CRE (<30 mg/g CRE)
[2024-08-25 18:18] LABS: T4 Free Direct 1.56 ng/dL (0.76-1.46)
== END | disposition home or self-care (01) ==
LOC: MTLAB 15:45
PROVIDERS: PCP Family Medicine; Referring Provider Family Medicine; Visit Provider Family Medicine
DX: E11.65 Type 2 diabetes mellitus with hyperglycemia (principal); E55.9 Vitamin D deficiency, unspecified; E03.9 Hypothyroidism, unspecified
CPT/HCPCS: 36415; 80061; 82043; 82306; 82570; 83036; 84439; 84443; 85025

== ENCOUNTER → 2024-10-10 | Outpatient (CLI) | payer MEDICARE, MEDICAID, SELFPAY ==
[2024-10-10 17:51] LABS: T4 Free Direct 0.97 ng/dL (0.76-1.46)
== END | disposition home or self-care (01) ==
LOC: MTLAB 14:58
PROVIDERS: PCP Family Medicine; Referring Provider Family Medicine; Visit Provider Family Medicine
DX: E03.9 Hypothyroidism, unspecified (principal); E11.65 Type 2 diabetes mellitus with hyperglycemia
CPT/HCPCS: 36415; 83036; 84439

== ENCOUNTER → 2024-11-13 | Outpatient (CLI) | payer MEDICARE, MEDICAID, SELFPAY ==
--- NOTE | 2024-11-13 11:08 | NM_ITS ---
CLINICAL: 44-year-old diabetic male with history of early satiety. SEMI-SOLID PHASE 99m Tc SULFUR COLLOID GASTRIC EMPTYING STUDY COMPARISON: None available FINDINGS: The patient was administered 1.2 mCi of 99m Tc sulfur colloid mixed with oatmeal and consumed per os. Image acquisitions in the anterior-posterior projections were obtained for 60 minutes. There is prompt visualization of the stomach. There is no gastroesophageal reflux identified. The T ? linear fit was calculated to be 51.56 minutes, (Normal: 12-56 minutes). NM/Gastric Emptying Study IMPRESSION: 1. NORMAL 99m Tc sulfur colloid semi-solid phase (oatmeal) gastric emptying imaging examination. A. There is upper limits of normal and preserved semi-solid phase gastric emptying compared to normal controls. (Ginny et al, J Nucl Med Tech 38: 186, 2010). Electronically Signed: Ezequiel King DO at 9:18 EST ,
== END | disposition home or self-care (01) ==
LOC: NM 11:05
PROVIDERS: PCP Family Medicine; Referring Provider Family Medicine; Visit Provider Family Medicine
DX: R68.81 Early satiety (principal)
CPT/HCPCS: 78264; A9541

== ENCOUNTER 2024-12-19 21:22 | Emergency (ER) | payer MEDICARE, MEDICAID, SELFPAY ==
[2024-12-19 21:25] VITALS: BP 132/98; PULSE 88; RESP 18; TEMP 35.9; O2SAT 100; BMI 24.0
--- NOTE | 2024-12-19 22:20 | CT_ITS ---
PROCEDURE: ABDOMEN/PELVIS W IV CONT ONLY REASON FOR EXAM: Elevated liver enzymes TECHNIQUE: Abdomen and pelvis CT with intravenous contrast. Multiplanar reconstructions were performed. COMPARISON: 02/21/2024 FINDINGS: Lower chest: Unremarkable. Liver: Unremarkable. Biliary/gallbladder: A couple of punctate calculi are present in the gallbladder. Pancreas: Unremarkable. Spleen: Unremarkable. Adrenal glands: Unremarkable. Kidneys: Unremarkable. Gastrointestinal/peritoneum: No acute abnormality.The appendix is unremarkable.No free air or free fluid. Vascular: Unremarkable. Lymph nodes: No enlarged lymph nodes by CT size criteria. Pelvic organs: Unremarkable. Bladder: Mild diffuse bladder wall thickening. Bones: Unremarkable. Soft tissues: Unremarkable. CT/Abdomen/Pelvis W IV Cont ONLY IMPRESSION: 1. Mild diffuse bladder wall thickening, possibly due to cystitis. 2. Cholelithiasis. [facility]
[2024-12-19] MEDS: 0.9% Normal Saline (1000mL) 1,000 ML 999 ML IV (22:35)
[2024-12-19 22:37] LABS: ALB/GLOB Ratio 0.7 RATIO (0.9-2.4); AST(SGOT) 247 U/L (15-37); Alanine Aminotransfer ALT/SGPT 418 U/L (16-61); Albumin, Serum 3.2 g/dL (3.2-5.0); Alkaline Phosphatase 977 U/L (45-117); Anion Gap 6 (5-15); BUN 29 mg/dL (7-18); BUN/Creat Ratio 33.6 RATIO (10-20); Calcium,Total 10.8 mg/dL (8.5-10.1); Chloride 93 mmol/L (98-107); Creatinine, Serum 0.86 mg/dL (0.70-1.30); EST Glomerular Filtration Rate 103 mL/min (>60); Est Glom Filt Rate - Afr Amer 125 mL/min (>60); Estimated Creatinine Clearance 115.54 ml/min; Globulin 4.4 g/dL (2.2-4.2); Glucose 487 mg/dL (74-106); Potassium 4.5 mmol/L (3.5-5.1); Protein, Total 7.6 g/dL (6.4-8.2); Sodium Level 128 mmol/L (136-145)
[2024-12-19 22:42] LABS: Lipase 88 U/L (73-393)
[2024-12-19] MEDS: Ondansetron 4 MG/2 ML Vial IV (22:46)
--- NOTE | 2024-12-19 23:16 | US_ITS ---
PROCEDURE: GALLBLADDER REASON FOR EXAM: Cholelithiasis COMPARISON: 12/19/2024 FINDINGS: Liver: Grossly normal size and echotexture, measuring 18.3 cm. Patent portal vein with hepatopetal flow. Gallbladder: A gallstone is noted in the gallbladder lumen. Sonographic Mcnair's sign is negative. Common bile duct: Normal measuring 3.6 mm. Pancreas: Visualized portions are sonographically unremarkable. Visualized portions of the right kidney are unremarkable. No right upper quadrant ascites. US/Gallbladder IMPRESSION: 1. Cholelithiasis. 2. No acute abnormality. Reading Location: [facility]
[2024-12-19 23:54] VITALS: BP 137/95; PULSE 86; RESP 16; O2SAT 98
[2024-12-19 23:56] LABS: Acetaminophen (Tylenol) Level < 2.0 ug/mL (10.0-30.0)
--- NOTE | 2024-12-20 00:14 | EDS_ITS ---
HPI History of Present Illness Chief Complaint: Abn Labs Informant: patient, legal guardian (Patient's sister) and family Narrative Narrative: Patient is a 44-year-old male with history of insulin-dependent diabetes hypothyroidism and bipolar disorder. His sister who is his legal guardian states that he had blood work done today and his liver enzymes were elevated. She states in the past they have been slightly bumped but they were much greater today. She states that there has been no recent change to his medication. 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 However she did make him finally quit in the last 2 to 3 days and feels that he is developing withdrawal symptoms. However as it is unsure why his liver enzymes suddenly spiked he was advised to come in for further evaluation [facility] Medical History Bipolar disorder Contact dermatitis due to poison los Dextromethorphan use disorder, mild, abuse Diabetes Home Medications ?Medication ?Instructions ?Recorded ?Last Taken ?Type cholecalciferol (vitamin D3) 50 50 mcg PO DAILY Unknown History mcg (2,000 unit) capsule flash glucose scanning reader #1 ea 12/24/23 Unknown R x (FreeStyle Aniya 2 [place]) lithium carbonate 450 mg 450 mg PO BID 30 days #60 ta bs 01/31/24 Unknown History tablet,extended release lurasidone 40 mg tablet (Latuda) 60 mg PO DAILY Unknown History melatonin 5 mg tablet 5 mg PO HS 01/31/24 Unknown History BD Ultra-Fine Hilary Pen Needle 32 #100 ea 03/24/24 Unkn own Rx gauge x /32 (pen needle, diabetic) levothyroxine 200 mcg tablet 200 mcg PO DAILY #90 tabs 05/13/24 Unknown Rx flash glucose sensor (FreeStyle #6 ea 05/15/24 Unknown Rx Aniya 2 Sensor kit) insulin regular hum U-500 conc 500 50 unit (0.1 mL) rivera bcut TIDWMEAL 05/15/24 Unknown Rx unit/mL(3 mL) subcut pen (Humulin #27 mL R U-500 (Conc) Insulin Kwikpen) semaglutide 1 mg/dose (4 mg/3 mL) 1 mg (0.75 mL) subcu t QWEEK #9 mL 05/15/24 Unknown Rx subcutaneous pen injector (Ozempic) rosuvastatin 5 mg tablet 5 mg PO DAILY #90 tabs 06/30 Unknown Rx metformin 1,000 mg tablet 1,000 mg PO BIDWMEAL #60 tab s 07/28/24 Unknown Rx ondansetron 4 mg disintegrating 4 mg PO TID PRN nausea and 12/20/24 Unknown Rx tablet vomiting #21 tabs Allergy/AdvReac Type Severity Reaction Status Date / Time No Known Allergies Allergy Verified 12/19/24 21:25 Family History Other Alcohol abuse Anemia Arthritis Diabetes H/O transfusion of whole blood Heart disease High cholesterol Hypertension Mental disorder Myocardial infarction Thyroid disorder Social History (Updated 12/19/24 @ 21:45 by Macy Quigley) household members: family housing: house Smoking Status: Never smoker alcohol intake: never substance use type: does not use what type of physical activity do you participate in: walking frequency: daily ROS ROS ED Constitutional Constitutional ED: Denies chills or fever(s) Eyes Eyes: Denies change in vision ENT ENT ED: Denies sore throat Cardiovascular Cardiovascular: Denies chest pain or palpitations Respiratory/Chest Respiratory/Chest: Denies cough or dyspnea Gastrointestinal Gastrointestinal: Reports abdominal pain, nausea and vomiting; Denies diarrhea Genitourinary Genitourinary ED: Denies dysuria Musculoskeletal Musculoskeletal: Denies myalgias Integumentary Denies rash Neurologic Neurologic: Denies headache(s) Hematologic/Lymphatic Hematologic/Lymphatic: Denies easy bleeding or easy bruising EXAM Physical Exam Const Vital Signs: 12/19/24 21:25 12/19/24 21:45 12/19/24 23:54 Temperature 96.7 F L Temperature Source Temporal Pulse Rate 88 86 Respiratory Rate 18 16 Respiratory Effort Normal Non-Labored Respiratory Pattern Normal Blood Pressure 132/98 H 137/95 H Blood Pressure Mean 109 109 Pulse Ox 100 98 Oxygen Delivery Method Room Air Room Air 12/20/24 00:29 Temperature 98.7 F Temperature Source Pulse Rate 86 Respiratory Rate 16 Respiratory Effort Respiratory Pattern Blood Pressure 136/86 H Blood Pressure Mean 102 Pulse Ox 96 Oxygen Delivery Method Positive well nourished and well developed General Appearance ED: well developed HEENT Reports dry mucous membranes HEENT Narrative: Mucous membranes are dry and tacky Otherwise no tongue or lip swelling no oral lesions no airway edema or compromise or secondary findings to suggest infection Mouth ED: Yes dry mucous membranes Mouth: dry mucous membranes Eyes PERRL and EOMs intact bilaterally General Eye ED: Negative for scleral icterus Neck supple Neck Narrative: No nuchal rigidity or meningeal signs noted Resp normal respiratory effort and clear to auscultation bilaterally Cardio regular rate and regular rhythm Rate: other Other Details: Heart is regular rate and rhythm without murmurs rubs or gallop Radial and carotid pulses are equal and symmetric GI non-tender, non-distended and no masses GI Narrative: Abdomen is soft nontender and nondistended with hyperactive bowel sounds. No voluntary guarding or rigidity or pulsatile mass. No ascites or fluid wave noted. No hepatic enlargement. Auscultation: hyperactive bowel sounds Palpation: soft Extremity normal to inspection Neuro oriented x3, CN's II-XII intact bilaterally and no sensory deficits noted Sensorium / Orientation: alert Psych mental status grossly normal Skin no rashes or lesions noted General Skin Exam: Negative for jaundice MDM MDM MDM Narrative Medical decision making narrative: Patient arrived to the ER slightly hypertensive but otherwise with stable vital. Chart review reveals that his liver enzymes have always been slightly elevated but this time they are increased even from his baseline. There is a possibility this could be related to hepatitis or developing cirrhosis especially as he reports a 25-year history of Coricidin use which does contain Tylenol. There is potential that the elevation could be related to a mass or obstruction secondary to gallstones. In order to ensure that the elevations are not due to lab error as well repeat testing was obtained with imaging. Blood work confirmed elevation to liver enzymes however they were slightly improved when compared to earlier today. The patient's Tylenol level was less than 2 going against an acute ingestion and need for N-acetylcysteine and admission. CT scan revealed gallstones without other findings such as acute cholecystitis or pancreatitis. I did elect to perform an ultrasound following this was confirmed gallstones but no signs of acute cholecystitis enlargement of liver or liver mass. Therefore at this time as the patient's vitals are stable his workup does show elevated liver enzymes compared to his baseline but there is no signs of an obstructive process or infective process and he does not have findings to suggest acute poisoning causing the symptoms secondary to acetaminophen ingestion or lithium overdose. I do feel that his values are most likely elevated secondary to 25 years of 3 boxes a day of Coricidin use and development of cirrhosis. He was advised to follow-up with his family doctor to discuss a GI referral at this time as vitals are stable and overall workup is only showing elevation of liver enzymes without an infectious or obstructive process there is no need for admiss ion and he is otherwise safe for discharge History & Record Review Discussion w/independent historian: Patient and Family Lab Data Attestation: I reviewed the patient's lab results. Labs: Laboratory Results - last 24 hr 12/19/24 12/19/24 21:43 22:26 Sodium 128 L Potassium 4.5 Chloride 93 L Carbon Dioxide 29.0 Anion Gap 6 BUN 29 H Creatinine 0.86 Estim Creat Clear Calc 115.54 Est GFR (MDRD) Af Amer 125 Est GFR (MDRD) Non-Af 103 BUN/Creatinine Ratio 33.6 H Glucose 487 H* Calcium 10.8 H Total Bilirubin 0.50 AST 247 H ALT 418 H Alkaline Phosphatase 977 H Total Protein 7.6 Albumin 3.2 Globulin 4.4 H Albumin/Globulin Ratio 0.7 L Lipase 88 Acetaminophen < 2.0 L [place] 1.00 Radiography Diagnostic Testing: Clinical Impression(s) from Imaging Studies Abdomen/Pelvis CT 12/19/24 22:20 IMPRESSION: 1. Mild diffuse bladder wall thickening, possibly due to cystitis. 2. Cholelithiasis. Reading Location: [facility] Gallbladder Ultrasound 12/19/24 23:16 IMPRESSION: 1. Cholelithiasis. 2. No acute abnormality. Reading Location: [facility] Discharge Plan Triage Chief Complaint: Abn Labs ED Provider: Jorge Alberto Durand Dx/Rx/DC Orders Clinical Impression: Elevated liver enzymes, Bipolar disorder, Hypothyroidism, Insulin dependent diabetes mellitus Instructions: How the Liver Works Prescriptions: New ondansetron 4 mg tablet,disintegrating 4 mg PO TID PRN (Reason: nausea and vomiting) Qty: 21 0RF No Action lithium carbonate 450 mg tablet extended release 450 mg PO BID 30 Days Qty: 60 Patient Comments: Latuda 40 mg tablet 60 mg PO DAILY melatonin 5 mg tablet 5 mg PO HS Patient Comments: TAKE 1 TABLET BY MOUTH AT BEDTIME cholecalciferol (vitamin D3) 50 mcg (2,000 unit) capsule 50 mcg PO DAILY (DME) FreeStyle Aniya 2 [place] Misc See Rx Instructions .Route Qty: 1 0RF Rx Instructions: As directed Humulin R U-500 (Conc) Kwikpen 500 unit/mL (3 mL) insulin pen 50 unit subcut TIDWMEAL Qty: 27 0RF Ozempic 1 mg/dose (4 mg/3 mL) pen injector 1 mg subcut QWEEK Qty: 9 0RF (DME) FreeStyle Aniya 2 Sensor Kit See Rx Instructions .Route Qty: 6 0RF Rx Instructions: 1 sensor q 14 days (DME) pen needle, diabetic [BD Ultra-Fine Hilary Pen Needle] 32 gauge x 5/32 needle See Rx Instructions .ROUTE .MEDSUPPLY Qty: 100 8RF Rx Instructions: tid levothyroxine 200 mcg tablet 200 mcg PO DAILY Qty: 90 1RF rosuvastatin 5 mg tablet 5 mg PO DAILY Qty: 90 1RF metformin 1,000 mg tablet 1,000 mg PO BIDWMEAL Qty: 60 0RF Primary Care Provider: Freddy Chowdhury Referrals: Freddy Chowdhury MD [Primary Care Provider] - Activity Restrictions/Additional Instructions: Your liver enzymes this evening were slightly lower than the ones obtained earlier in the day. Your CT scan and ultrasound show 2 small gallstones but otherwise no sign of infection or obstruction or mass. The elevation of your liver enzymes is most likely due to your recurrent Coricidin use over the last 25 years. Please discuss with your family doctor about a referral to GI for further evaluation of your liver enzymes and return to the ER should you have any further concerns. Print Language: Jordanian Disposition Disposition: Home, Self Care Discharge Date/Time: 12/20/24 00:30
[2024-12-20 00:29] VITALS: BP 136/86; PULSE 86; RESP 16; TEMP 37.1; O2SAT 96
[2024-12-21 09:08] LABS: HEPATITIS B SURFACE AG Negative (Negative); Hep C Antibodies Non Reactive (Non Reactive); Hepatitis A IgM Antibody Negative (Negative); Hepatitis B Core AB IgM Negative (Negative)
== END 2024-12-20 00:30 | disposition home or self-care (01) ==
PROVIDERS: Emergency Provider Emergency Medicine; PCP Family Medicine; Visit Provider Emergency Medicine
DX: R74.8 Abnormal levels of other serum enzymes (principal); F31.9 Bipolar disorder, unspecified; E11.9 Type 2 diabetes mellitus without complications; Z79.4 Long term (current) use of insulin; K80.20 Calculus of gallbladder without cholecystitis without obstruction; E03.9 Hypothyroidism, unspecified; Z79.890 Hormone replacement therapy; Z79.899 Other long term (current) drug therapy; Z79.84 Long term (current) use of oral hypoglycemic drugs
CPT/HCPCS: 74177; 76705; 80053; 80074; 80143; 80178; 83690; 96361; 96374; 99282; Q9967; A4216; J2405

== ENCOUNTER → 2024-12-19 | Outpatient (CLI) | payer MEDICARE, MEDICAID, SELFPAY ==
[2024-12-19 17:48] LABS: Absolute Lymphocyte Count 1.57 X10^3/uL (0.83-4.51); Absolute Neutrophil Count 11.5 X10^3/uL (2.0-7.7); Basophil# 0.09 X10^3/uL; Basophil% 0.6 % (0-1); Eosinophil# 0.58 X10^3/uL; Eosinophils% 3.9 % (0-5); Hematocrit 44.6 % (40-54); Hemoglobin 14.6 g/dL (13.0-16.5); Lymphocyte # 1.57 X10^3/ul (0.83-4.51); Lymphocyte % 10.6 % (19-41); Mean Corp Hgb Conc 32.7 g/dL (32-36); Mean Corpuscular Hgb 31.9 pg (27.0-32.0); Mean Corpuscular Volume 97.4 fL (80-94); Mean Platelet Vol. 9.7 fl (6.2-12.0); Monocyte# 1.09 X10^3/uL; Monocyte% 7.3 % (0-10); NRBC Flagged by Analyzer 0 % (0-5); Neutrophil # 11.48 X10^3/uL (2.7-7.7); Neutrophil % 77.2 % (47-70); Platelet Count 546 K/mm3 (150-450); RBC Distribution Width CV 12.2 % (11.6-14.6); RBC Distribution Width SD 43.9 fl (35.1-43.9); Red Blood Count 4.58 M/mm3 (4.6-6.2); White Blood Count 14.9 K/mm3 (4.4-11.0)
[2024-12-19 18:44] LABS: Hemoglobin A1c 10.2 % (3.8-5.6)
[2024-12-19 20:03] LABS: ALB/GLOB Ratio 0.7 RATIO (0.9-2.4); AST(SGOT) 274 U/L (15-37); Alanine Aminotransfer ALT/SGPT 436 U/L (16-61); Albumin, Serum 3.4 g/dL (3.2-5.0); Alkaline Phosphatase 1080 U/L (45-117); Anion Gap 6 (5-15); BUN 29 mg/dL (7-18); BUN/Creat Ratio 29.2 RATIO (10-20); Calcium,Total 11.5 mg/dL (8.5-10.1); Chloride 90 mmol/L (98-107); Cholesterol 220 mg/dL (200); Creatinine, Serum 0.99 mg/dL (0.70-1.30); EST Glomerular Filtration Rate 88 mL/min (>60); Est Glom Filt Rate - Afr Amer 106 mL/min (>60); Globulin 4.6 g/dL (2.2-4.2); Glucose 525 mg/dL (74-106); High Density Lipoprotein 64 mg/dL; Potassium 5.2 mmol/L (3.5-5.1); Sodium Level 124 mmol/L (136-145); T4 Free Direct 1.06 ng/dL (0.76-1.46); Triglycerides 481 mg/dL
== END | disposition home or self-care (01) ==
LOC: MFPLAB 15:06
PROVIDERS: PCP Family Medicine; Referring Provider Family Medicine; Visit Provider Family Medicine
DX: E03.9 Hypothyroidism, unspecified (principal); E11.8 Type 2 diabetes mellitus with unspecified complications
CPT/HCPCS: 36415; 80053; 80061; 83036; 84439; 84443; 85025

== ENCOUNTER 2025-01-30 11:22 | Outpatient (CLI) | payer MEDICARE, MEDICAID, SELFPAY ==
[2025-01-30 15:25] LABS: Absolute Lymphocyte Count 2.55 X10^3/uL (0.83-4.51); Absolute Neutrophil Count 8.3 X10^3/uL (2.0-7.7); Basophil# 0.09 X10^3/uL; Basophil% 0.7 % (0-1); Eosinophil# 1.39 X10^3/uL; Eosinophils% 10.5 % (0-5); Hemoglobin 13.7 g/dL (13.0-16.5); Lymphocyte # 2.55 X10^3/ul (0.83-4.51); Lymphocyte % 19.2 % (19-41); Mean Corp Hgb Conc 31.9 g/dL (32-36); Mean Corpuscular Hgb 29.1 pg (27.0-32.0); Mean Corpuscular Volume 91.3 fL (80-94); Mean Platelet Vol. 9.6 fl (6.2-12.0); Monocyte# 0.95 X10^3/uL; Monocyte% 7.2 % (0-10); NRBC Flagged by Analyzer 0 % (0-5); Neutrophil # 8.25 X10^3/uL (2.7-7.7); Neutrophil % 62.2 % (47-70); Platelet Count 458 K/mm3 (150-450); RBC Distribution Width CV 12.9 % (11.6-14.6); RBC Distribution Width SD 43.2 fl (35.1-43.9); Red Blood Count 4.71 M/mm3 (4.6-6.2); White Blood Count 13.3 K/mm3 (4.4-11.0)
[2025-01-30 18:24] LABS: Hemoglobin A1c 12.2 % (<=5.6)
[2025-01-30 20:52] LABS: Cholesterol 167 mg/dL (<=200); High Density Lipoprotein 51 mg/dL; Low Density Lipoprotein Calc. 23 mg/dL; Triglycerides 466 mg/dL; Very Low Density Lipoprotein 93 mg/dL (5-40); cholesterol:hdl ratio screen 3.26
[2025-01-30 21:37] LABS: ALB/GLOB Ratio 1.2 RATIO (0.9-2.4); AST(SGOT) 52 U/L (<=37); Alanine Aminotransfer ALT/SGPT 146 U/L (<=46); Alkaline Phosphatase 642 U/L (40-129); Anion Gap 19 (5-15); BUN 24 mg/dL (4-19); Calcium,Total 10.3 mg/dL (7.6-11.0); Carbon Dioxide 13.6 mmol/L (21.0-32.0); Chloride 96 mmol/L (98-108); Creatinine, Serum 0.85 mg/dL (0.70-1.20); EST Glomerular Filtration Rate 111 (>60); Globulin 3.4 g/dL (2.2-4.2); Glucose 543 mg/dL (70-99); Potassium 4.4 mmol/L (3.3-5.1); Protein, Total 7.4 g/dL (5.9-8.4); Sodium Level 128 mmol/L (133-145); Total Bilirubin 0.15 mg/dL (0.00-1.30); Vitamin D,25 Hydroxy 31.6 ng/mL (30-100)
[2025-04-23 08:21] LABS: Microalbumin:Creatinine Ratio 3257.7 mg/g CRE
== END 2025-01-30 23:59 | disposition home or self-care (01) ==
LOC: MFPLAB 11:23
PROVIDERS: PCP Family Medicine; Referring Provider Family Medicine; Visit Provider Family Medicine
DX: E11.8 Type 2 diabetes mellitus with unspecified complications (principal); E03.9 Hypothyroidism, unspecified; E55.9 Vitamin D deficiency, unspecified
CPT/HCPCS: 36415; 80053; 80061; 82043; 82306; 82570; 83036; 84439; 84443; 85025

== ENCOUNTER 2025-04-03 14:24 | Outpatient (CLI) | payer MEDICARE, MEDICAID, SELFPAY ==
[2025-04-03 19:47] LABS: Absolute Lymphocyte Count 2.47 X10^3/uL (0.83-4.51); Absolute Neutrophil Count 7.1 X10^3/uL (2.0-7.7); Basophil# 0.11 X10^3/uL; Eosinophil# 1.05 X10^3/uL; Eosinophils% 9.1 % (0-5); Hematocrit 44.5 % (40-54); Hemoglobin 13.8 g/dL (13.0-16.5); Lymphocyte # 2.47 X10^3/ul (0.83-4.51); Lymphocyte % 21.5 % (19-41); Mean Corpuscular Hgb 29.2 pg (27.0-32.0); Mean Corpuscular Volume 94.1 fL (80-94); Mean Platelet Vol. 9.8 fl (6.2-12.0); Monocyte# 0.78 X10^3/uL; Monocyte% 6.8 % (0-10); NRBC Flagged by Analyzer 0 % (0-5); Neutrophil # 7.06 X10^3/uL (2.7-7.7); Neutrophil % 61.3 % (47-70); Platelet Count 388 K/mm3 (150-450); RBC Distribution Width CV 14.1 % (11.6-14.6); RBC Distribution Width SD 48.3 fl (35.1-43.9); Red Blood Count 4.73 M/mm3 (4.6-6.2); White Blood Count 11.5 K/mm3 (4.4-11.0)
[2025-04-03 20:41] LABS: Cholesterol 110 mg/dL (<=200); Hemoglobin A1c 15.1 % (<=5.6); High Density Lipoprotein 39 mg/dL; Low Density Lipoprotein Calc. 19 mg/dL; Triglycerides 264 mg/dL; Very Low Density Lipoprotein 53 mg/dL (5-40); cholesterol:hdl ratio screen 2.86
[2025-04-03 21:06] LABS: ALB/GLOB Ratio 1.3 RATIO (0.9-2.4); AST(SGOT) 72 U/L (<=37); Alanine Aminotransfer ALT/SGPT 179 U/L (<=46); Alkaline Phosphatase 366 U/L (40-129); Anion Gap 12 (5-15); BUN 22 mg/dL (4-19); BUN/Creat Ratio 24.7 RATIO (10-20); Calcium,Total 9.9 mg/dL (7.6-11.0); Carbon Dioxide 21.8 mmol/L (21.0-32.0); Chloride 99 mmol/L (98-108); EST Glomerular Filtration Rate 109 (>60); Globulin 3.2 g/dL (2.2-4.2); Potassium 4.8 mmol/L (3.3-5.1); Protein, Total 7.2 g/dL (5.9-8.4); Sodium Level 133 mmol/L (133-145); Total Bilirubin 0.18 mg/dL (0.00-1.30)
[2025-04-04 00:57] LABS: Microalbumin,Random Urine 99.4 mg/L (NO RANGE EST.)
[2025-04-04 08:26] LABS: Glucose 457 mg/dL (70-99)
[2025-04-28 11:13] LABS: Microalbumin:Creatinine Ratio 671.6 mg/g CRE
== END 2025-04-03 23:59 | disposition home or self-care (01) ==
LOC: MFPLAB 14:24
PROVIDERS: PCP Family Medicine; Visit Provider Family Medicine
DX: E11.65 Type 2 diabetes mellitus with hyperglycemia (principal); E03.9 Hypothyroidism, unspecified; E55.9 Vitamin D deficiency, unspecified
CPT/HCPCS: 36415; 80053; 80061; 82043; 82306; 82570; 83036; 84439; 84443; 85025

== ENCOUNTER 2025-04-06 17:52 | Emergency (ER) | payer MEDICARE, MEDICAID, SELFPAY ==
[2025-04-06 17:53] VITALS: BP 109/86; PULSE 95; RESP 19; TEMP 36.7; O2SAT 97; BMI 24.1
[2025-04-06 19:14] LABS: Absolute Lymphocyte Count 2.95 X10^3/uL (0.83-4.51); Absolute Neutrophil Count 7.8 X10^3/uL (2.0-7.7); Basophil% 0.8 % (0-1); Eosinophil# 0.94 X10^3/uL; Eosinophils% 7.2 % (0-5); Hematocrit 49.1 % (40-54); Lymphocyte # 2.95 X10^3/ul (0.83-4.51); Lymphocyte % 22.7 % (19-41); Mean Corp Hgb Conc 32.6 g/dL (32-36); Mean Corpuscular Hgb 29.5 pg (27.0-32.0); Mean Corpuscular Volume 90.4 fL (80-94); Mean Platelet Vol. 9.1 fl (6.2-12.0); Monocyte# 1.17 X10^3/uL; NRBC Flagged by Analyzer 0 % (0-5); Neutrophil # 7.77 X10^3/uL (2.7-7.7); Neutrophil % 59.8 % (47-70); Platelet Count 429 K/mm3 (150-450); RBC Distribution Width CV 14.2 % (11.6-14.6); RBC Distribution Width SD 46.9 fl (35.1-43.9); Red Blood Count 5.43 M/mm3 (4.6-6.2)
[2025-04-06] MEDS: 0.9% Normal Saline (1000mL) 1,000 ML 999 ML IV (19:18)
[2025-04-06 19:23] LABS: Bedside Glucose 385 mg/dL (74-106)
[2025-04-06 19:47] LABS: Anion Gap 13 (5-15); BUN 17 mg/dL (4-19); BUN/Creat Ratio 16.2 RATIO (10-20); Carbon Dioxide 26.1 mmol/L (21.0-32.0); Chloride 92 mmol/L (98-108); Creatinine, Serum 1.06 mg/dL (0.70-1.20); EST Glomerular Filtration Rate 90 (>60); Estimated Creatinine Clearance 93.74 ml/min (50-250); Glucose 381 mg/dL (70-99); Potassium 4.5 mmol/L (3.3-5.1); Sodium Level 131 mmol/L (133-145)
--- NOTE | 2025-04-06 20:03 | ED.RN ---
PT STATES I CANNOT WAIT ANY LONGER TO BE SEEN IV REMOVED, PT EXITED DEPARTMENT
== END 2025-04-06 20:01 | disposition left against medical advice (07) ==
LOC: ED 20:05
PROVIDERS: Surgery; PCP Family Medicine
DX: Z53.29 Procedure and treatment not carried out because of patient's decision for other reasons (principal)
CPT/HCPCS: 80048; 82962; 85025; 96360

== ENCOUNTER 2025-05-01 23:56 | Emergency (ER) | payer MEDICARE, MEDICAID, SELFPAY ==
[2025-05-01 23:57] VITALS: BP 147/106; PULSE 100; RESP 18; TEMP 37; O2SAT 97; BMI 24.5
--- OUTSIDE RECORDS SUMMARY | 2025-05-02 00:16 | XMS RPT_ITS | CCD ---
Author Organization [facility] Care Team Providers Care A P Mechanic Name Role Phone Macy Salinas LPN Unavailable BERNICE SWENSON Attending Unavailable PHYSICIAN, NONE Primary Care Unavailable Macy Salinas LPN Unavailable Dr. Denise Reyes Primary Care Provider Dr. Denise Reyes Referring Provider [phone] WILLIAM Owens Attending Provider Dr. Denise Reyes Primary Care Provider Dr. Denise Reyes Referring Provider WILLIAM Owens Attending Provider Dr. Denise Reyes Primary Care Provider [phone] Dr. Denise Reyes Referring Provider [phone] Yasmany Borges Attending Provider 1([facility])[phone] Dr. Denise Reyes Primary Care Provider Dr. Denise Reyes Referring Provider WILLIAM Owens Attending Provider [phone] Yasmany Borges Attending Provider 1([facility])[phone] Unavailable Primary Care Provider UnavailDENISE Yung Referring Unavailable SEBASTIAN MARROQUIN Attending Unavailable DENISE REYES Referring Unavailable O'NEHA HILLIARD Attending Unavailable DENISE REYES Referring Unavailable Marleen'NEHA HILLIARD Attending Unavailable DENISE REYES Referring Unavailable O'BABAKNEHA Attending Unavailable DENISE REYES Referring Unavailable O'BABAK, NEHA Attending Unavailable Marleen'BABAKNEHA Attending Unavailable DENISE REYES Referring Unavailable Marleen'BABAKNEHA LEMON Attending Unavailable DENISE REYES Referring Unavailable DENISE REYES Referring Unavailable DENISE REYES Referring Unavailable SEBASTIAN MARROQUIN Attending Unavailable DENISE REYES Referring Unavailable SEBASTIAN MARROQUIN Attending Unavailable Trenton FOURNIER, Dr. Denise Mann Primary Care Provider Trenton FOURNIER, Dr. Denise Mann Attending Provider Dr. Denise Reyes MD Referring Provider Dr. Jorge Alberto Durand DO Attending Provider [phone] Dr. Jorge Alberto Durand DO Emergency Provider [phone] Provider, Ed Physician Emergency Provider UnaDenise Tomas Attending Unavailable Denise Reyes Referring Unavailable Denise Reyes Primary Care Unavailable Denise Reyes Consulting Unavailable RANCHO DIAZ Attending Unavailable RANCHO DIAZ Referring Unavailable Denise Reyes Primary Care Unavailable Denise Reyes Attending Unavailable Denise Reyes Referring Unavailable Denise Reyes Primary Care Unavailable Denise Reyes Primary Care Unavailable Provider, Ed Physician Attending Unavailab le Denise Reyes Primary Care Unavailable Denise Reyes Attending Unavailable Denise Reyes Referring Unavailable William Owens Attending Unavailable Denise Reyes Referring Unavailable Denise Reyes Primary Care Unavailable Denise Reyes Attending Unavailable Denise Reyes Primary Care Unavailable Denise Reyes Primary Care Unavailable Denise Reyes Attending Unavailable Denise Reyes Referring Unavailable Denise Reyes Primary Care Unavailable Denise Reyes Attending Unavailable Denise Reyes Referring Unavailable Denise Reyes Primary Care Unavailable Denise Reyes Attending Unavailable Denise Reyes Referring Unavailable Denise Reyes Primary Care Unavailable Jorge Alberto Durand Attending Unavailable Denise Reyes Attending Unavailable Denise Reyes Referring Unavailable Denise Reyes Primary Care Unavailable Denise Reyes Attending Unavailable Denise Reyes Referring Unavailable Denise Reyes Primary Care Unavailable Medications Current Medications Medication Drug Class(es) Dates Sig (Normalized) Sig (Original) cholecalciferol 0.05 mg oral capsule (9 sources) Vitamin D Start: 06-05-2022 End: 12-24-2023 take 1 capsule by mouth once daily Cholecalciferol (Vitamin D3) 50 mcg (2,000 unit) capsule Active 50 ug PO DAILY December 24, 2023 1:00am Flash Glucose Scanning [place] (Freestyle Aniya 2 [place]) misc (3 sources) Start: 12-24-2023 Flash Glucose Scanning [place] (Freestyle Aniya 2 [place]) misc Active 0 .Route 1 December 24, 2023 1:00am As directed Flash Glucose Sensor (Freestyle Aniya 2 Sensor) kit (2 sources) Start: 05-15-2024 Flash Glucose Sensor (Freestyle Aniya 2 Sensor) kit Active 0 .Route May 15, 2024 12:00am 1 sensor q 14 days 3 ml insulin, regular, human 500 unt/ml pen injector (17 sources) Insulin Start: 12-24-2023 End: 05-15-2024 Insulin Regular Hum U-500 Conc (Humulin R U-500 (Conc) Kwikpen) 500 unit/mL (3 mL) insulin pen Active 50 U SC 3 times per day with meals May 15, 2024 4:31pm Start: 06-05-2022 End: 05-02-2023 Insulin Regular Hum U-500 Co nc (Humulin R U-500 (Conc) Kwikpen) 500 unit/mL (3 mL) insulin pen Discontinued 60 U SC June 05, 2022 12:00am June 05, 2022 4:40pm lithium carbonate 450 mg extended release oral tablet (10 sources) Start: 11-21-2017 End: 01-31-2024 take 1 tablet by mouth twice daily [place] Carbonate 450 mg tablet extended release Active 450 mg PO TWICE A DAY 60 January 31, 2024 2:51pm Start: 11-21-2017 End: 01-31-2024 [place] Carbonate 450 mg tab let extended release Discontinued PO 90 November 21, 2017 1:00am January 31, 2024 2:53pm melatonin 5 mg oral tablet (9 sources) Start: 01-31-2024 take 1 tablet by mouth at bedtime Melatonin 5 mg tablet Active 5 mg PO BEDTIME January 31, 2024 2:52pm Start: 06-05-2022 End: 01-31-2024 Melatonin 5 mg tablet Discon tinued NMA PO June 05, 2022 12:00am January 31, 2024 2:53pm Start: 06-05-2022 End: 01-31-2024 Melatonin Discontinued EACH PO June 05, 2022 12:00am January 31, 2024 2:53pm metFORMIN hydrochloride 1000 mg oral tablet (4 sources) Biguanide Start: 05-15-2024 End: 07-28-2024 take 1 tablet by mouth twice daily at mealtime Metformin 1,000 mg tablet Active 1000 mg PO 2 times per day with meals July 28, 2024 8:08am ondansetron 4 mg disintegrating oral tablet (2 sources) Serotonin-3 Receptor Antagonist Start: 12-20-2024 take 1 tablet by mouth three times daily as needed for nausea and vomiting Ondansetron 4 mg tablet,disintegrat ing Active 4 mg PO THREE TIMES A DAY as needed for nausea and vomiting December 20, 2024 1:18am rosuvastatin calcium 5 mg oral tablet (20 sources) HMG-CoA Reductase Inhibitor Start: 06-30-2024 take 1 tablet by mouth once daily Rosuvastatin 5 mg tablet Active 5 mg PO DAILY June 30, 2024 12:00am Start: 06-05-2022 End: 06-30-2024 take 1 tablet by mouth once daily Rosuvastatin 40 mg tablet Discontinued 40 mg PO DAILY May 14, 2023 4:09pm June 30, 2024 8:02am Semaglutide (15 sources) Start: 05-15-2024 Semaglutide (O zempic) 1 mg/dose (4 mg/3 mL) pen injector Active 1 mg SC EVERY WEEK May 15, 2024 4:31pm Start: 12-24-2023 End: 05-15-2024 Semaglutide (Ozempic) 1 mg/d ose (4 mg/3 mL) pen injector Discontinued 1 mg SC EVERY WEEK December 24, 2023 12:07pm May 15, 2024 4:32pm Start: 12-24-2023 Semaglutide (O zempic) 1 mg/dose (4 mg/3 mL) pen injector Active 1 MG SC EVERY WEEK 3 December 24, 2023 12:07pm Start: 01-25-2023 End: 12-24-2023 Semaglutide (Ozempic) 1 mg/d ose (4 mg/3 mL) pen injector Discontinued 1 mg SC EVERY WEEK 3 January 25, 2023 2:08pm December 24, 2023 12:27pm Start: 01-25-2023 End: 12-24-2023 Semaglutide (Ozempic) 1 mg/d ose (4 mg/3 mL) pen injector Discontinued 1 MG SC EVERY WEEK 3 January 25, 2023 2:08pm December 24, 2023 12:27pm Start: 01-25-2023 Semaglutide (O zempic) 1 mg/dose (4 mg/3 mL) pen injector Active 1 MG SC EVERY WEEK 3 January 25, 2023 1:08pm Start: 01-25-2023 Semaglutide (O zempic) 1 mg/dose (4 mg/3 mL) pen injector Active 1 MG SC EVERY WEEK 3 January 25, 2023 2:08pm Start: 11-30-2022 End: 01-25-2023 Semaglutide (Ozempic) 1 mg/d ose (4 mg/3 mL) pen injector Discontinued 1 mg SC EVERY WEEK 3 November 30, 2022 1:00am January 25, 2023 2:08pm Start: 11-30-2022 End: 01-25-2023 Semaglutide (Ozempic) 1 mg/d ose (4 mg/3 mL) pen injector Discontinued 1 MG SC EVERY WEEK 3 November 30, 2022 12:00am January 25, 2023 1:08pm Start: 11-30-2022 End: 01-25-2023 Semaglutide (Ozempic) 1 mg/d ose (4 mg/3 mL) pen injector Discontinued 1 MG SC EVERY WEEK 3 November 30, 2022 1:00am January 25, 2023 2:08pm Completed/Discontinued Medications Medication Drug Class(es) Dates Sig (Normalized) Sig (Original) amoxicillin 500 mg oral capsule (11 sources) Penicillin-class Antibacterial Start: 11-21-2017 End: 12-05-2017 take 1 capsule by mouth twice daily Amoxicillin 500 mg capsule Discontinued 500 mg PO TWICE A DAY November 21, 2017 1:00am December 04, 2017 1:00am December 05, 2017 1:05am Start: 07-31-2017 End: 08-10-2017 AMOXICILLIN 500 MG TABS Take one tab every 12 hours AMOXICILLIN [id number] Deep DIAZ amoxicillin 875 mg / clavulanate 125 mg oral tablet (7 sources) Penicillin-class Antibacterial Start: 06-14-2018 End: 06-24-2018 Amoxicillin-Pot Clavulanate (Augmentin) 875-125 mg tablet Discontinued 1 {tbl} PO THREE TIMES A DAY 03 09June 14, 2018 12:00am June 23, 2018 12:00am June 24, 2018 12:08am atorvastatin 20 mg oral tablet (7 sources) HMG-CoA Reductase Inhibitor Start: 11-21-2017 End: 06-22-2022 Atorvastatin 20 mg tablet Discontinued PO November 21, 2017 1:00am June 22, 2022 12:15pm Start: 11-21-2017 End: 06-22-2022 Atorvastatin Discontinued PO November 21, 2017 1:00am June 22, 2022 12:15pm 24 hr buPROPion hydrochloride 150 mg extended release oral tablet (7 sources) Aminoketone Start: 11-21-2017 End: 12-24-2023 take 1 tablet by mouth every twenty-four hours Bupropion Hcl 150 mg tablet extended release 24 hr Discontinued PO November 21, 2017 1:00am December 24, 2023 11:52am CALCIUM CARBONATE-VIT D-MIN (1 source) Start: 07-31-2017 CALCIUM 600+D3 PLUS MINERALS 600-800 MG-UNIT CHEW as directed CALCIUM CARBONATE-VIT D-MIN [id number] Deep DIAZ CALCIUM CARBONATE-VIT D-MIN (1 source) Start: 07-31-2017 CALCIUM 600+D3 PLUS MINERALS 600-800 MG-UNIT CHEW as directed CALCIUM CARBONATE-VIT D-MIN [id number] Deep DIAZ canagliflozin 50 mg / metFORMIN hydrochloride 1000 mg oral tablet (20 sources) Biguanide, Sodium-Glucose Cotransporter 2 Inhibitor Start: 06-22-2022 End: 05-15-2024 Canagliflozin-Met formin 50-1,000 mg tablet Discontinued 1 {tbl} PO TWICE A DAY 180 90 April 12, 2023 9:21am December 24, 2023 12:27pm Start: 06-22-2022 End: 12-24-2023 take 1 tablet by mouth twice daily Canagliflozin-Metformin Active 1 TABLET PO TWICE A DAY 180 90 December 24, 2023 12:07pm Start: 11-21-2017 End: 06-22-2022 Canagliflozin-Metformin 50-1 ,000 mg tablet Discontinued PO 60 30 November 21, 2017 1:00am June 22, 2022 12:15pm Start: 11-21-2017 End: 06-22-2022 Canagliflozin-Metformin Disc ontinued PO 60 November 21, 2017 1:00am June 22, 2022 12:15pm doxycycline hyclate 100 mg oral capsule (14 sources) Tetracycline-class Drug Start: 05-13-2019 End: 05-23-2019 take 1 capsule by mouth twice daily Doxycycline Hyclate 100 mg capsule Discontinued 100 mg PO TWICE A DAY 20 May 13, 2019 12:00am May 22, 2019 12:00am May 23, 2019 12:07am Start: 06-14-2018 End: 06-24-2018 take 1 capsule by mouth twice daily Doxycycline Hyclate 100 mg capsule Discontinued 100 mg PO TWICE A DAY 20 June 14, 2018 12:00am June 23, 2018 12:00am June 24, 2018 12:08am Dulaglutide (17 sources) GLP-1 Receptor Agonist Start: 11-27-2022 End: 11-30-2022 Dulaglutide (Trulicity) 3 mg/0.5 mL pen injector Discontinued 3 mg SC EVERY WEEK 2 November 27, 2022 11:39am November 30, 2022 12:34pm Start: 11-27-2022 End: 11-30-2022 Dulaglutide (Trulicity) 3 mg /0.5 mL pen injector Discontinued 3 MG SC EVERY WEEK 2 November 27, 2022 10:39am November 30, 2022 11:34am Start: 11-27-2022 End: 11-30-2022 Dulaglutide (Trulicity) 3 mg /0.5 mL pen injector Discontinued 3 MG SC EVERY WEEK 2 November 27, 2022 11:39am November 30, 2022 12:34pm Start: 06-05-2022 End: 01-25-2023 Dulaglutide (Trulicity) 1.5 mg/0.5 mL pen injector Discontinued mL SC June 05, 2022 12:00am January 25, 2023 12:28pm Start: 06-05-2022 End: 11-27-2022 Dulaglutide (Trulicity) 3 mg /0.5 mL pen injector Discontinued 3 mg SC EVERY WEEK 2 June 05, 2022 12:00am November 27, 2022 11:39am Start: 06-05-2022 End: 01-25-2023 Dulaglutide (Trulicity) 1.5 mg/0.5 mL pen injector Discontinued ML SC June 05, 2022 12:00am January 25, 2023 12:28pm Start: 06-05-2022 End: 11-27-2022 Dulaglutide (Trulicity) 3 mg /0.5 mL pen injector Discontinued 3 MG SC EVERY WEEK 2 June 04, 2022 11:00pm November 27, 2022 10:39am Start: 06-05-2022 End: 11-27-2022 Dulaglutide (Trulicity) 3 mg /0.5 mL pen injector Discontinued 3 MG SC EVERY WEEK 2 June 05, 2022 12:00am November 27, 2022 11:39am Start: 06-05-2022 Dulaglutide (T rulicity) 3 mg/0.5 mL pen injector Active 3 MG SC EVERY WEEK 2 June 04, 2022 11:00pm ergocalciferol 1.25 mg oral capsule (6 sources) Provitamin D2 Compound Start: 06-05-2022 End: 12-24-2023 Ergocalciferol (Vitamin D2) 1,250 mcg (50,000 unit) capsule Discontinued NMA PO June 05, 2022 12:00am December 24, 2023 11:50am Start: 06-05-2022 End: 12-24-2023 Ergocalciferol (Vitamin D2) Discontinued EACH PO June 05, 2022 12:00am December 24, 2023 11:50am fenofibric acid 135 mg delayed release oral capsule (7 sources) Peroxisome Proliferator Receptor alpha Agonist Start: 11-21-2017 End: 01-31-2024 Fenofibric Acid (Choline) 135 mg capsule,delayed release(DR/EC) Discontinued PO 90 90 November 21, 2017 1:00am January 31, 2024 2:44pm Start: 11-21-2017 End: 01-31-2024 Fenofibric Acid (Choline) Di scontinued PO 90 November 21, 2017 1:00am January 31, 2024 2:44pm 3 ml insulin degludec 200 unt/ml pen injector (9 sources) Insulin Analogue Start: 11-21-2017 End: 06-05-2022 Insulin Degludec 200 unit/mL (3 mL) insulin pen Discontinued SC November 21, 2017 1:00am June 05, 2022 2:30pm Start: 11-21-2017 End: 06-05-2022 Insulin Degludec Discontinue d SC November 21, 2017 1:00am June 05, 2022 2:30pm Start: 07-31-2017 TRESIBA FLEXTO UCH 100 UNIT/ML SOPN as directed INSULIN DEGLUDEC [id number] Deep DIAZ Start: 07-31-2017 TRESIBA FLEXTO UCH 100 UNIT/ML SOPN as directed INSULIN DEGLUDEC [id number] Deep DIAZ 3 ml insulin lispro 50 unt/ml / insulin lispro protamine, human 50 unt/ml pen injector (5 sources) Insulin Analog Start: 05-02-2023 End: 01-31-2024 Insulin Lispro Protamin-Lispro (Humalog Mix 50-50 Kwikpen) 100 unit/mL (50-50) insulin pen Discontinued 50 U SC TWICE A DAY May 02, 2023 12:00am January 31, 2024 3:48pm lithium citrate 60 mg/ml oral solution (2 sources) Start: 07-31-2017 LITHIUM 8 MEQ/ 5ML SOLN as directed LITHIUM [id number] Deep DIAZ lurasidone hydrochloride 40 mg oral tablet (19 sources) Atypical Antipsychotic Start: 06-05-2022 End: 01-31-2024 Lurasidone (Latuda) 40 mg tablet Discontinued 60 mg PO December 24, 2023 11:51am January 31, 2024 2:53pm Start: 11-21-2017 End: 01-25-2023 Lurasidone 80 mg tablet Disc ontinued PO 30 November 21, 2017 1:00am January 25, 2023 1:52pm Start: 11-21-2017 End: 01-25-2023 Lurasidone Discontinued PO 3 0 November 21, 2017 1:00am January 25, 2023 1:52pm naltrexone hydrochloride 50 mg oral tablet (6 sources) Opioid Antagonist Start: 06-05-2022 End: 12-24-2023 Naltrexone 50 mg tablet Discontinued NMA PO June 05, 2022 12:00am December 24, 2023 11:52am Start: 06-05-2022 End: 12-24-2023 Naltrexone Discontinued EACH PO June 05, 2022 12:00am December 24, 2023 11:52am pioglitazone 30 mg oral tablet (6 sources) Peroxisome Proliferator Receptor alpha Agonist, Peroxisome Proliferator Receptor gamma Agonist, Thiazolidinedione Start: 06-05-2022 End: 06-05-2022 Pioglitazone 30 mg tablet Discontinued NMA PO June 05, 2022 12:00am June 05, 2022 2:47pm Start: 06-05-2022 End: 06-05-2022 Pioglitazone Discontinued TA B PO June 05, 2022 12:00am June 05, 2022 2:47pm predniSONE 10 mg oral tablet (7 sources) Start: 05-02-2021 End: 01-25-2023 take 4 tablets by mouth once daily, then take 3 tablets by mouth once daily, then take 2 tablets by mouth once daily, then take 1 tablet by mouth once daily Prednisone 10 mg tablet Discontinued 10 mg PO DAILY May 02, 2021 12:00am January 25, 2023 1:53pm 4 tablets daily for 3 days, then 3 tablets daily for 3 days, then 2 tablets daily for 3 days, then 1 tablet daily for 3 days levothyroxine sodium 0.2 mg oral tablet (20 sources) l-Thyroxi ne Start: 06-05-2022 End: 05-13-2024 take 1 tablet by mouth once daily Levothyroxine 200 mcg tablet Discontinued 200 ug PO DAILY August 24, 2023 4:00pm May 13, 2024 11:03am Start: 11-21-2017 End: 07-04-2023 take 1 tablet by mouth once daily Levothyroxine 25 mcg tablet Discontinued 25 ug PO DAILY 90 90 December 21, 2022 8:54am July 04, 2023 12:26pm Start: 11-21-2017 End: 06-22-2022 Levothyroxine 25 mcg tablet Discontinued PO 90 90 November 21, 2017 1:00am June 22, 2022 12:15pm Start: 07-31-2017 LEVO-T 175 MCG TABS as directed LEVOTHYROXINE SODIUM [id number] Deep DIAZ Start: 07-31-2017 LEVO-T 175 MCG TABS as directed LEVOTHYROXINE SODIUM [id number] Deep DIAZ topiramate 200 mg oral table t (6 sources) Start: 06-05-2022 End: 12-24-2023 Topiramate 200 mg tablet Discontinued NMA PO June 05, 2022 12:00am December 24, 2023 11:51am Start: 06-05-2022 End: 12-24-2023 Topiramate Discontinued EACH PO June 05, 2022 12:00am December 24, 2023 11:51am Problems Active Problems Problem Classification Problem Date Documented Date Episodic/Chronic Allergic reactions (7 sources) Contact dermatitis due to poison los; Translations: [Allergic contact dermatitis due to plants, except food] 05-02-2021 Episodic Diabetes mellitus with complications (7 sources) 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; Translations: [Type 2 diabetes mellitus 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, unspecified eye] Onset: 02-27-2025 01-08-2023 Chronic Diabetes mellitus without complication (15 sources) Diabetes mellitus; Translations: [Type 2 diabetes mellitus without complications] Onset: 06-05-2024 Chronic Disorders of teeth and jaw (9 sources) Infection of tooth; Translations: [Periapical abscess without sinus] Onset: 07-31-2017 07-31-2017 Episodic Mood disorders (4 sources) Bipolar disorder; Translations: [Bipolar disorder, unspecified] Onset: 06-05-2024 01-28-2024 Chronic Other connective tissue disease (10 sources) Other symptoms and signs involving the musculoskeletal system; Translations: [Other musculoskeletal symptoms referable to limbs] 07-30-2024 Episodic Other connective tissue disease (10 sources) Muscle weakness of limb; Translations: [Other symptoms and signs involving the musculoskeletal system] Onset: 07-30-2024 07-30-2024 Episodic Other liver diseases (7 sources) Elevated liver enzymes level; Translations: [Abnormal levels of other serum enzymes] 05-05-2023 Episodic Other liver diseases (3 sources) Abnormal levels of other serum enzymes; Translations: [Other nonspecific abnormal serum enzyme levels] Onset: 02-02-2025 09-24-2023 Episodic Other nutritional; endocrine; and metabolic disorders (5 sources) Overweight; Translations: [Overweight] 01-25-2023 Episodic Other nutritional; endocrine; and metabolic disorders (3 sources) Overweight; Translations: [Overweight] 01-25-2023 Episodic Other screening for suspected conditions (not mental disorders or infectious disease) (1 source) Abnormal finding of blood chemistry, unspecified; Translations: [Abnormal finding of blood chemistry, unspecified] Onset: 04-09-2025 Episodic Other skin disorders (7 sources) Acute folliculitis; Translations: [Follicular disorder, unspecified] 06-14-2018 Episodic Residual codes; unclassified (1 source) Procedure and treatment not carried out because of patient's decision for other reasons; Translations: [Procedure and treatment not carried out because of patient's decision for other reasons] Onset: 04-10-2025 Episodic Skin and subcutaneous tissue infections (7 sources) Pilonidal cyst with abscess; Translations: [Pilonidal cyst with abscess] 06-14-2018 Episodic Thyroid disorders (13 sources) Hypothyroidism; Translations: [Hypothyroidism, unspecified] Onset: 01-02-2025 Chronic Unclassified (7 sources) Cyst ; Translations: [Cyst] 05-13-2019 Past or Other Problems Problem Classification Problem Date Documented Da te Episodic/Chronic Mycoses (2 sources) Candidiasis; Translations: [Candidiasis, unspecified] Onset: 07-31-2017 07-31-2017 Episodic Other aftercare (1 source) Other nursing home (current) drug therapy; Translations: [Other nursing home (current) drug therapy] Onset: 07-22-2024 Episodic Other aftercare (1 source) halfway (current) use of insulin; Translations: [halfway (current) use of insulin] Onset: 06-05-2024 Episodic Other connective tissue disease (1 source) Myalgia, unspecified site; Translations: [Myalgia, unspecified site] Onset: 07-17-2024 Episodic Residual codes; unclassified (1 source) Early satiety; Translations: [Early satiety] Onset: 12-04-2024 Episodic Spondylosis; intervertebral disc disorders; other back problems (1 source) Radiculopathy, lumbar region; Translations: [Radiculopathy, lumbar region] Onset: 07-23-2024 Episodic Results Test Name Value Interpretation Reference Range Facility Microalb:Creat Ratio,Random URon 04-28-2025 MALB:CREAT 671.6 mg/g CRE Normal [facility] Comment on above: Order Comment: Order Date: 10/10/24 Order Info: 3024-7 - T4F [facility] ONLY PER PT Result Comment: AMENDED REPORT 04/28/25 1113 MALB:CREAT previously reported as: 6716.2 mg/g CRE Performed By: #### L [id number], L506.0400 #### [facility] [address] [place], [address] Microalb:Creat Ratio,Random URon 04-23-2025 MALB:CREAT 3257.7 mg/g CRE Normal [facility] Comment on above: Order Comment: Order Date: 01/30/25Order Info: [id number] - MIACRE Result Comment: AMENDED REPORT 04/23/25 0821 MALB:CREAT previously reported as: 07306.3 mg/g CRE Performed By: #### L [id number] #### [facility] [address] [place], [address] Absolute lymphocyte countOrd ered By: Richard Harvey on 04-06-2025 Lymphocytes Auto (Unsp spec) [#/Vol] 2.95 10*3/uL 0.83-4.51 [facility] Absolute neutrophil countOrd ered By: Richard Harvey on 04-06-2025 Neutrophils (Bld) [#/Vol] 7.8 10*3/uL High 2.0-7.7 [facility] Anion gap in Serum or Plasma Ordered By: Richard Harvey on 04-06-2025 Anion gap [Moles/Vol] 13 mmol/L 5-15 [facility] Automated blood erythrocyte countOrdered By: Richard Harvey on 04-06-2025 RBC (Bld) [#/Vol] 5.43 10*6/uL Normal 4.6-6.2 [facility] Comment on above: Performed By: #### L [id number], [id number], L501.9520, L503.6550, L501.5200 #### [facility] [address] [place], [place], [id number] Automated blood hematocrit ( percentage)Ordered By: Richard Harvey on 04-06-2025 Hematocrit (Bld) [Volume fraction] 49.1 % Normal 40-54 [facility] Comment on above: Performed By: #### L [id number], [id number], [id number], L503.6550, L501.5200 #### [facility] [address] [facility] [place] [place], [id number] Automated lymphocyte count a s percentage of total leukocytesOrdered By: Richard Harvey on 04-06-2025 Lymphocytes/100 WBC Auto (Unsp spec) 22.7 % 19-41 [facility] BUN/creatinine ratioOrdered By: Richard Wes on 04-06-2025 Urea nitrogen/Creatinine [Mass ratio] 16.2 mg/mg - [facility] Basic Metabolic Profile (BMP )on 04-06-2025 BUN/CRE 16.2 RATIO Normal - [facility] Comment on above: Performed By: #### L [id number], [id number], [id number], L503.6550, L501.5200 #### [facility] [address], [address] ECRCL 93.74 ml/min Normal 50-250 [facility] Comment on above: Performed By: #### L [id number], [id number], L501.9520, L503.6550, L501.5200 #### [facility] [address] [place], [address] GAP 13 Normal 5-15 [facility] Comment on above: Performed By: #### L [id number], [id number], [id number], L503.6550, L501.5200 #### [facility] [address] [place], [address] Potassium [Moles/Vol] 4.5 mmol/L Normal 3.3-5.1 [facility] Comment on above: Result Comment: Hemo lysis present, Results??could be affected. ?? Performed By: #### L [id number], [id number], [id number], L503.6550, L501.5200 #### [facility] [address] [place], [address] Basophil percentageOrdered B y: Richard aHrvey on 04-06-2025 Basophils/100 WBC (Bld) 0.8 % Normal 0-1 [facility] Comment on above: Performed By: #### L [id number], [id number], [id number], L503.6550, L501.5200 #### [facility] [address] [place], [address] Bedside Glucoseon 04-06-2025 FINGERSTICK GLU 385 mg/dL High 74-106 [facility] Comment on above: Result Comment: CHRIS GEMENT OF PATIENT CARE PER NURSING PROTOCOL Performed By: #### L 501.9985, L506.0400 #### [facility] [address] [place], [address] CBC W/Diff, Automatedon 06-0 2-5 Absolute Lymph 2.95 X10 3/uL Normal 0.83-4.51 [facility] Comment on above: Performed By: #### L 500.4050, L501.3620, L501.9520, L503.6550, L501.5200 #### [facility] [address] [place], [address] Absolute Neut 7.8 X10 3/uL High 2.0-7.7 [facility] Comment on above: Performed By: #### L 500.4050, L501.3620, L501.9520, L503.6550, L501.5200 #### [facility] [address] [place], [address] IG% 0.500 Normal 0.0-0.9 [facility] Comment on above: Result Comment: IG% - Immature Granulocytes (promyelocytes, myelocytes and metamyelocytes) > 1% indicates that a LEFT SHIFT is Present. Performed By: #### L 500.4050, L501.3620, L501.9520, L503.6550, L501.5200 #### [facility] [address] [place], [address] Lymphocytes/100 WBC (Bld) 22.7 % Normal 19-41 [facility] Comment on above: Performed By: #### L 500.4050, L501.3620, L501.9520, L503.6550, L501.5200 #### [facility] [address] [place], [address] Nucleated RBC (Bld) [#/Vol] 0 10*3/uL Normal 0-5 [facility] Comment on above: Performed By: #### L 500.4050, L501.3620, L501.9520, L503.6550, L501.5200 #### [facility] [address] [place], [address] RDW SD 46.9 fl High 35.1-43.9 [facility] Comment on above: Performed By: #### L 500.4050, L501.3620, L501.9520, L503.6550, L501.5200 #### [facility] [address] [place], [address] Carbon dioxide, total [Moles /volume] in Central venous bloodOrdered By: Richard Harvey on 04-06-2025 CO2 [Moles/Vol] 26.1 mmol/L Normal 21.0-32.0 [facility] Comment on above: Performed By: #### L 500.4050, L501.3620, L501.9520, L503.6550, L501.5200 #### [facility] [address] [place], [address] Chloride assayOrdered By: Asif Harvey on 04-06-2025 Chloride [Moles/Vol] 92 mmol/L Low 98-108 [facility] Comment on above: Performed By: #### L 500.4050, L501.3620, L501.9520, L503.6550, L501.5200 #### [facility] [address] [place], [address] Eosinophil percentageOrdered By: Richard Harvey on 04-06-2025 Eosinophils/100 WBC (Bld) 7.2 % High 0-5 [facility] Comment on above: Performed By: #### L 500.4050, L501.3620, L501.9520, L503.6550, L501.5200 #### [facility] [address] [place], [address] Erythrocyte distribution wid th ratioOrdered By: Richard Harvey on 04-06-2025 Erythrocyte distribution width (RBC) [Ratio] 14.2 % Normal 11.6-14.6 [facility] Comment on above: Performed By: #### L 500.4050, L501.3620, L501.9520, L503.6550, L501.5200 #### [facility] [address] [place], [address] Erythrocyte distribution wid th standard deviationOrdered By: Richard Ibrahim on 04-06-2025 Erythrocyte distribution width (RBC) [Ratio] 46.9 fl High 35.1-43.9 [facility] Glomerular filtration rate ( GFR) estimation/1.73 sq m using serum, plasma, or whole bOrdered By: Richard Harvey on 04-06-2025 GFR/1.73 sq M.predicted among non-blacks MDRD (S/P/Bld) [Vol rate/Area] 90 mL/min/{1.73_m2} Normal >60 [facility] Comment on above: mL/min/1.73m2 CKD-EP I Creatinine Equation (2020) Result Comment: mL/m in/1.73m2 CKD-EPI Creatinine Equation (2020) Performed By: #### L 500.4050, L501.3620, L501.9520, L503.6550, L501.5200 #### [facility] [address] [place], [place], [id number] Glucose measurement at [facility] deOrdered By: ED PROVIDER on 04-06-2025 Glucose [Mass/Vol] 385 mg/dL High 74-106 [facility] Comment on above: MANAGEMENT OF PATIEN T CARE PER NURSING PROTOCOL Hemoglobin measurementOrdere d By: Richard Harvey on 04-06-2025 Hemoglobin (Bld) [Mass/Vol] 16.0 g/dL Normal 13.0-16.5 [facility] Comment on above: Performed By: #### L 500.4050, L501.3620, L501.9520, L503.6550, L501.5200 #### [facility] [address] [place], [address] Immature granulocytes/100 WB C Auto (Bld)Ordered By: Richard Harvey on 04-06-2025 Immature granulocytes/100 WBC (Bld) 0.500 % 0.0-0.9 [facility] Comment on above: IG% - Immature Granu locytes (promyelocytes, myelocytes and metamyelocytes) > 1% indicates that a LEFT SHIFT is Present. MCV (mean corpuscular volume ) determinationOrdered By: Richard Harvey on 04-06-2025 MCV (RBC) [Entitic vol] 90.4 fL Normal 80-94 [facility] Comment on above: Performed By: #### L 500.4050, L501.3620, L501.9520, L503.6550, L501.5200 #### [facility] [address] [place], [place], [address] Mean corpuscular hemoglobin (MCH) determinationOrdered By: Richard Harvey on 04-06-2025 MCH (RBC) [Entitic mass] 29.5 pg Normal 27.0-32.0 [facility] Comment on above: Performed By: #### L 500.4050, L501.3620, L501.9520, L503.6550, L501.5200 #### [facility] [address] [place], [address] Mean corpuscular hemoglobin concentration (MCHC) determinationOrdered By: Richard Harvey on 04-06-2025 MCHC (RBC) [Mass/Vol] 32.6 g/dL Normal 32-36 [facility] Comment on above: Delta: 31.0 on 04/03-1424 Performed By: #### L 500.4050, L501.3620, L501.9520, L503.6550, L501.5200 #### [facility] [address] [place], [address] Mean platelet volume determi nationOrdered By: Richard Harvey on 04-06-2025 Platelet mean volume (Bld) [Entitic vol] 9.1 fL Normal 6.2-12.0 [facility] Comment on above: Performed By: #### L 500.4050, L501.3620, L501.9520, L503.6550, L501.5200 #### [facility] [address] [place], [address] Monocyte percentageOrdered B y: Richard Harvey on 04-06-2025 Monocytes/100 WBC (Bld) 9.0 % Normal 0-10 [facility] Comment on above: Performed By: #### L 500.4050, L501.3620, L501.9520, L503.6550, L501.5200 #### [facility] [address] [place], [address] Neutrophil percentageOrdered By: Richard Harvey on 04-06-2025 Neutrophils/100 WBC (Bld) 59.8 % Normal 47-70 [facility] Comment on above: Performed By: #### L 500.4050, L501.3620, L501.9520, L503.6550, L501.5200 #### [facility] [address] [place], [address] Nucleated red blood cell per centageOrdered By: Richard Harvey on 04-06-2025 Nucleated RBC/100 WBC (Bld) [Ratio] 0 % 0-5 [facility] Platelet countOrdered By: Asif Harvey on 04-06-2025 Platelets (Bld) [#/Vol] 429 10*3/uL Normal 150-450 [facility] Comment on above: Performed By: #### L 500.4050, L501.3620, L501.9520, L503.6550, L501.5200 #### [facility] [address] [place], [address] Potassium measurement (mass/ volume)Ordered By: Richard Harvey on 04-06-2025 Potassium (Unsp spec) [Mass/Vol] 4.5 mmol/L 3.3-5.1 [facility] Comment on above: Hemolysis present, R esults could be affected. Serum creatinine measurement (mass/volume)Ordered By: Richard Harvey on 04-06-2025 Creatinine [Mass/Vol] 1.06 mg/dL Normal 0.70-1.20 [facility] Comment on above: Performed By: #### L 500.4050, L501.3620, L501.9520, L503.6550, L501.5200 #### [facility] [address] [place], [place], [id number] [phone] Serum glucose measurement (m ass/volume)Ordered By: Richard Harvey on 04-06-2025 Glucose [Mass/Vol] 381 mg/dL High 70-99 [facility] Comment on above: Performed By: #### L 500.4050, L501.3620, L501.9520, L503.6550, L501.5200 #### [facility] [address] [place], [place], [id number] Serum or plasma calcium kain urement (mass/volume)Ordered By: Richard Ibrahim on 04-06-2025 Calcium [Mass/Vol] 11.0 mg/dL Normal 7.6-11.0 [facility] Comment on above: Performed By: #### L 500.4050, L501.3620, L501.9520, L503.6550, L501.5200 #### [facility] [address] [place], [place], [address] Serum or plasma urea nitroge n measurement (mass/volume)Ordered By: Richard Harvey on 04-06-2025 Urea nitrogen [Mass/Vol] 17 mg/dL Normal 4-19 [facility] Comment on above: Performed By: #### L 500.4050, L501.3620, L501.9520, L503.6550, L501.5200 #### [facility] [address] [place], [address] Sodium levelOrdered By: Jj Harvey on 04-06-2025 Sodium [Moles/Vol] 131 mmol/L Low 133-145 [facility] Comment on above: Performed By: #### L 500.4050, L501.3620, L501.9520, L503.6550, L501.5200 #### [facility] [address] [place], [address] White blood cell (WBC) count Ordered By: Richard Harvey on 04-06-2025 WBC (Bld) [#/Vol] 13.0 10*3/uL High 4.4-11.0 [facility] Comment on above: Performed By: #### L 500.4050, L501.3620, L501.9520, L503.6550, L501.5200 #### [facility] [address] [place], [place], [id number] Comprehensive Metabolic Prof [facility] 04-04-2025 Glucose [Mass/Vol] 457 mg/dL Invalid Interpretation Code 70-99 [facility] Comment on above: Order Comment: Order Date: 10/10/24 Order Info: 4548-4 - A1C Result Comment: Crit ical Result(s) Called at: 2104 by: MADDY VILLALPANDO TO ANDIE FLYNN.??Results read back by same. Critical Result(s) Called at: 2104 by: MADDY VILLALPANDO TO ANDIE FLYNN.??Results read back by same. Critical Result(s) Called at: by:??Results read back by same. AMENDED REPORT 04/04/25 08 GLU previously reported as: 457 *H mg/dL Critical Result(s) Called at: 2104 by: MADDY VILLALPANDO TO ANDIE FLYNN.??Results read back by same. Performed By: #### L 501.9985, L506.0400 #### [facility] [address] [place], [place], [address] Vitamin D,25 Hydroxyon 04-04 Vitamin D 25-OH 35.0 ng/mL Normal 30-100 [facility] Comment on above: Order Comment: Order Date: 05/13/24 Order Info: 0786-1 - CMP Order Info: 2157-6 - CPK Order Info: 95804-7 - MG Order Info: 3016-3 - TSH Order Info: 2276-4 - EMBER Result Comment: Bindu min D Status Deficiency: <20 ng/mL (50nmol/L) Insufficiency: 20-30 ng/mL (50-75 nmol/L) Sufficiency: 30-100 ng/mL (75-250 nmol/L) Toxicity: >100 ng/mL (>250 nmol/L) Performed By: #### L 500.4050, L501.3620, L501.9520, L503.6550, L501.5200 #### [facility] [address] [place], [address] Absolute lymphocyte countOrd ered By: Denise Reyes on 04-03-2025 Lymphocytes Auto (Unsp spec) [#/Vol] 2.47 10*3/uL 0.83-4.51 [facility] Absolute neutrophil countOrd ered By: Denise Reyes on 04-03-2025 Neutrophils (Bld) [#/Vol] 7.1 10*3/uL 2.0-7.7 [facility] Anion gap in Serum or Plasma Ordered By: Denise Reyes on 04-03-2025 Anion gap [Moles/Vol] 12 mmol/L 5-15 [facility] Automated lymphocyte count a s percentage of total leukocytesOrdered By: Denise Reyes on 04-03-2025 Lymphocytes/100 WBC Auto (Unsp spec) 21.5 % 19-41 [facility] BUN/creatinine ratioOrdered By: Denise Reyes on 04-03-2025 Urea nitrogen/Creatinine [Mass ratio] 24.7 mg/mg High 10-20 [facility] Basophil percentageOrdered B y: Denise Reyes on 04-03-2025 Basophils/100 WBC (Bld) 1.0 % 0-1 [facility] Bilirubin, totalOrdered By: Denise Reyes on 04-03-2025 Bilirubin [Mass/Vol] 0.18 mg/dL 0.00-1.30 [facility] CBC W/Diff, Automatedon 03-07-2024 Absolute Lymph 2.47 X10 3/uL Normal 0.83-4.51 [facility] Comment on above: Order Comment: Order Date: 10/10/24 Order Info: 4548-4 - A1C Performed By: #### L 501.9985, L506.0400 #### [facility] [address] [place], [address] Absolute Neut 7.1 X10 3/uL Normal 2.0-7.7 [facility] Comment on above: Order Comment: Order Date: 10/10/24 Order Info: 4548-4 - A1C Performed By: #### L 501.9985, L506.0400 #### [facility] [address] [place], [address] Basophils/100 WBC (Bld) 1.0 % Normal 0-1 [facility] Comment on above: Order Comment: Order Date: 10/10/24 Order Info: 4548-4 - A1C Performed By: #### L 501.9985, L506.0400 #### [facility] [address] [place], [address] Eosinophils/100 WBC (Bld) 9.1 % High 0-5 [facility] Comment on above: Order Comment: Order Date: 10/10/24 Order Info: 4548-4 - A1C Performed By: #### L 501.9985, L506.0400 #### [facility] [address] [place], [address] Erythrocyte distribution width (RBC) [Ratio] 14.1 % Normal 11.6-14.6 [facility] Comment on above: Order Comment: Order Date: 10/10/24 Order Info: 4548-4 - A1C Performed By: #### L 501.9985, L506.0400 #### [facility] [address] [place], [address] Hematocrit (Bld) [Volume fraction] 44.5 % Normal 40-54 [facility] Comment on above: Order Comment: Order Date: 10/10/24 Order Info: 4548-4 - A1C Performed By: #### L 501.9985, L506.0400 #### [facility] [address] [place], [address] Hemoglobin (Bld) [Mass/Vol] 13.8 g/dL Normal 13.0-16.5 [facility] Comment on above: Order Comment: Order Date: 10/10/24 Order Info: 4548-4 - A1C Performed By: #### L 501.9985, L506.0400 #### [facility] [address] [place], [address] IG% 0.300 Normal 0.0-0.9 [facility] Comment on above: Order Comment: Order Date: 10/10/24 Order Info: 4548-4 - A1C Result Comment: IG% - Immature Granulocytes (promyelocytes, myelocytes and metamyelocytes) > 1% indicates that a LEFT SHIFT is Present. Performed By: #### L 501.9985, L506.0400 #### [facility] [address] [place], [address] Lymphocytes/100 WBC (Bld) 21.5 % Normal 19-41 [facility] Comment on above: Order Comment: Order Date: 10/10/24 Order Info: 4548-4 - A1C Performed By: #### L 501.9985, L506.0400 #### [facility] [address] [place], [address] MCH (RBC) [Entitic mass] 29.2 pg Normal 27.0-32.0 [facility] Comment on above: Order Comment: Order Date: 10/10/24 Order Info: 4548-4 - A1C Performed By: #### L 501.9985, L506.0400 #### [facility] [address] [place], [address] MCHC (RBC) [Mass/Vol] 31.0 g/dL Low 32-36 [facility] Comment on above: Order Comment: Order Date: 10/10/24 Order Info: 4548-4 - A1C Performed By: #### L 501.9985, L506.0400 #### [facility] [address] [place], [address] MCV (RBC) [Entitic vol] 94.1 fL High 80-94 [facility] Comment on above: Order Comment: Order Date: 10/10/24 Order Info: 4548-4 - A1C Performed By: #### L 501.9985, L506.0400 #### [facility] [address] [place], [address] Monocytes/100 WBC (Bld) 6.8 % Normal 0-10 [facility] Comment on above: Order Comment: Order Date: 10/10/24 Order Info: 4548-4 - A1C Performed By: #### L 501.9985, L506.0400 #### [facility] [address] [place], [address] Neutrophils/100 WBC (Bld) 61.3 % Normal 47-70 [facility] Comment on above: Order Comment: Order Date: 10/10/24 Order Info: 4548-4 - A1C Performed By: #### L 501.9985, L506.0400 #### [facility] [address] [place], [address] Nucleated RBC (Bld) [#/Vol] 0 10*3/uL Normal 0-5 [facility] Comment on above: Order Comment: Order Date: 10/10/24 Order Info: 4548-4 - A1C Performed By: #### L 501.9985, L506.0400 #### [facility] [address] [place], [address] Platelet mean volume (Bld) [Entitic vol] 9.8 fL Normal 6.2-12.0 [facility] Comment on above: Order Comment: Order Date: 10/10/24 Order Info: 4548-4 - A1C Performed By: #### L 501.9985, L506.0400 #### [facility] [address] [place], [address] Platelets (Bld) [#/Vol] 388 10*3/uL Normal 150-450 [facility] Comment on above: Order Comment: Order Date: 10/10/24 Order Info: 4548-4 - A1C Performed By: #### L 501.9985, L506.0400 #### [facility] [address] [place], [address] RBC (Bld) [#/Vol] 4.73 10*6/uL Normal 4.6-6.2 [facility] Comment on above: Order Comment: Order Date: 10/10/24 Order Info: 4548-4 - A1C Performed By: #### L 501.9985, L506.0400 #### [facility] [address] [place], [address] RDW SD 48.3 fl High 35.1-43.9 [facility] Comment on above: Order Comment: Order Date: 10/10/24 Order Info: 4548-4 - A1C Performed By: #### L 501.9985, L506.0400 #### [facility] [address] [place], [address] WBC (Bld) [#/Vol] 11.5 10*3/uL High 4.4-11.0 [facility] Comment on above: Order Comment: Order Date: 10/10/24 Order Info: 4548-4 - A1C Performed By: #### L 501.9985, L506.0400 #### [facility] [address] [place], [address] Calculated very low density lipoprotein (VLDL) cholesterol measurementOrdered By: Denise Reyes on 04-03-2025 Calculated very low density lipoprotein (VLDL) cholesterol measurement 53 mg/dL High 5-40 [facility] Carbon dioxide, total [Moles /volume] in Central venous bloodOrdered By: Denise Reyes on 04-03-2025 CO2 [Moles/Vol] 21.8 mmol/L 21.0-32.0 [facility] Chloride assayOrdered By: Elaine Reyes on 04-03-2025 Chloride [Moles/Vol] 99 mmol/L 98-108 [facility] Eosinophil percentageOrdered By: Denise Reyes on 04-03-2025 Eosinophils/100 WBC (Bld) 9.1 % High 0-5 [facility] Erythrocyte distribution wid th ratioOrdered By: Denise Reyes on 04-03-2025 Erythrocyte distribution width (RBC) [Ratio] 14.1 % 11.6-14.6 [facility] Erythrocyte distribution wid th standard deviationOrdered By: Denise Reyes on 04-03-2025 Erythrocyte distribution width (RBC) [Ratio] 48.3 fl High 35.1-43.9 [facility] Glomerular filtration rate ( GFR) estimation/1.73 sq m using serum, plasma, or whole bOrdered By: Denise Reyes on 04-03-2025 GFR/1.73 sq M.predicted among non-blacks MDRD (S/P/Bld) [Vol rate/Area] 109 mL/min/{1.73_m2} >60 [facility] Comment on above: mL/min/1.73m2 CKD-EP I Creatinine Equation (2020) Hematocrit Auto (Bld) [Volum e fraction]Ordered By: Denise Reyes on 04-03-2025 Hematocrit (Bld) [Volume fraction] 44.5 % 40-54 [facility] Hemoglobin A1con 04-03-2025 HbA1c (Bld) [Mass fraction] 15.1 % High <=5.6 [facility] Comment on above: Order Comment: Order Date: 10/10/24 Order Info: 4548-4 - A1C Result Comment: Norm al < 5.7 % Prediabetic 5.7 - 6.4 % Diabetic >or= 6.5 % Please note range changes. Performed By: #### L 501.9985, L506.0400 #### [facility] [address] [place], [place], [id number] Hemoglobin A1c percentageOrd ered By: Denise Reyes on 04-03-2025 HbA1c (Bld) [Mass fraction] 15.1 % High <5.7 [facility] Comment on above: Normal < 5.7 % Predi abetic 5.7 - 6.4 % Diabetic >or= 6.5 % Please note range changes. Hemoglobin measurementOrdere d By: Denise Reyes on 04-03-2025 Hemoglobin (Bld) [Mass/Vol] 13.8 g/dL 13.0-16.5 [facility] Immature granulocytes/100 WB C Auto (Bld)Ordered By: Denise Reyes on 04-03-2025 Immature granulocytes/100 WBC (Bld) 0.300 % 0.0-0.9 [facility] Comment on above: IG% - Immature Granu locytes (promyelocytes, myelocytes and metamyelocytes) > 1% indicates that a LEFT SHIFT is Present. LDL calc ser/plasOrdered By: Denise Reyes on 04-03-2025 Cholesterol in LDL [Mass/Vol] 19 mg/dL [facility] Comment on above: Zdinoyexfv=759-524 m g/dL & Higher Ctav=113 mg/dL or greater Laboratory - Chemistry and C hemistry - challengeOrdered By: Denise Reyes on 04-03-2025 AST [Catalytic activity/Vol] 72 U/L High <38 [facility] Lipid Profileon 04-03-2025 CHOL:HDL 2.86 Normal [facility] Comment on above: Order Comment: Order Date: 10/10/24 Order Info: 3024-7 - T4F TODAYS LABS ONLY PER PT Performed By: #### L 501.9985, L506.0400 #### [facility] [address] [place], [address] Cholesterol [Mass/Vol] 110 mg/dL Normal <=200 [facility] Comment on above: Order Comment: Order Date: 10/10/24 Order Info: 3024-7 - T4F TODAYS LABS ONLY PER PT Result Comment: Chol esterol level, Desirable <200 mg/dL Borderline high cholesterol 200-239 mg/dL High cholesterol >=240 mg/dL Recommendations of the NCEP Adult Treatment Panel for the following risk-cutoff thresholds for the [place] population. Performed By: #### L 501.9985, L506.0400 #### [facility] [address] [place], [address] Cholesterol in HDL [Mass/Vol] 39 mg/dL Low [facility] Comment on above: Order Comment: Order Date: 10/10/24 Order Info: 3024-7 - T4F TODAYS LABS ONLY PER PT Result Comment: [place] on[place] Cholesterol Education Program (NCEP) guidelines: <40 mg/dL: Low HDL-cholesterol (major risk factor for CHD) >= 60 mg/dL: High HDL-cholesterol (negative risk factor for CHD) HDL-cholesterol is affected by a number of factors, e.g. smoking, exercise, hormones, sex and age. Performed By: #### L 501.9985, L506.0400 #### [facility] [address] [place], [address] Cholesterol in LDL [Mass/Vol] 19 mg/dL Normal [facility] Comment on above: Order Comment: Order Date: 10/10/24 Order Info: 3024-7 - T4F TODAYS LABS ONLY PER PT Result Comment: Bord ypmkya=839-343 mg/dL Higher Wagf=699 mg/dL or greater Performed By: #### L 501.9985, L506.0400 #### [facility] [address] [place], [address] Cholesterol in VLDL [Mass/Vol] 53 mg/dL High 5-40 [facility] Comment on above: Order Comment: Order Date: 10/10/24 Order Info: 3024-7 - T4F TODAYS LABS ONLY PER PT Performed By: #### L 501.9985, L506.0400 #### [facility] [address] [place], [address] Triglyceride [Mass/Vol] 264 mg/dL High [facility] Comment on above: Order Comment: Order Date: 10/10/24 Order Info: 3024-7 - T4F TODAYS LABS ONLY PER PT Result Comment: The drugs N-Acetylcysteine and Metamizole may falsely depress this assay. Normal range: <150 mg/dL Borderline High: 150-199 mg/dL High: 200-499 mg/dL Very High: >500 mg/dL Performed By: #### L 501.9985, L506.0400 #### [facility] [address] [place], [address] MCV (mean corpuscular volume ) determinationOrdered By: Denise Reyes on 04-03-2025 MCV (RBC) [Entitic vol] 94.1 fL High 80-94 [facility] Mean corpuscular hemoglobin (MCH) determinationOrdered By: Denise Reyes on 04-03-2025 MCH (RBC) [Entitic mass] 29.2 pg 27.0-32.0 [facility] Mean corpuscular hemoglobin concentration (MCHC) determinationOrdered By: Denise Reyes on 04-03-2025 MCHC (RBC) [Mass/Vol] 31.0 g/dL Low 32-36 [facility] Mean platelet volume determi nationOrdered By: Denise Reyes on 04-03-2025 Platelet mean volume (Bld) [Entitic vol] 9.8 fL 6.2-12.0 [facility] Monocyte percentageOrdered B y: Denise Reyes on 04-03-2025 Monocytes/100 WBC (Bld) 6.8 % 0-10 [facility] Neutrophil percentageOrdered By: Denise Reyes on 04-03-2025 Neutrophils/100 WBC (Bld) 61.3 % 47-70 [facility] Nucleated red blood cell per centageOrdered By: Denise Reyes on 04-03-2025 Nucleated RBC/100 WBC (Bld) [Ratio] 0 % 0-5 [facility] Platelet countOrdered By: Elaine Reyes on 04-03-2025 Platelets (Bld) [#/Vol] 388 10*3/uL 150-450 [facility] Potassium measurement (mass/ volume)Ordered By: Denise Reyes on 04-03-2025 Potassium (Unsp spec) [Mass/Vol] 4.8 mmol/L 3.3-5.1 [facility] RBC Auto (Bld) [#/Vol]Ordere d By: Denise Reyes on 04-03-2025 RBC (Bld) [#/Vol] 4.73 10*6/uL 4.6-6.2 [facility] Random urine creatinine kain urement (mass/volume)Ordered By: Denise Reyes on 04-03-2025 Creatinine Unsp time (U) [Mass/Vol] 14.80 mg/dL Low 39.00-259.00 [facility] Screening total cholesterol/ high density lipoprotein (HDL) cholesterol ratioOrdered By: Denise Reyes on 04-03-2025 Cholesterol.total/Prerna sterol in HDL [Mass ratio] 2.86 {ratio} [facility] Serum creatinine measurement (mass/volume)Ordered By: Denise Reyes on 04-03-2025 Creatinine [Mass/Vol] 0.90 mg/dL 0.70-1.20 [facility] Serum globulin measurementOr dered By: Denise Reyes on 04-03-2025 Globulin (S) [Mass/Vol] 3.2 g/dL 2.2-4.2 [facility] Serum glucose measurement (m ass/volume)Ordered By: Denise Reyes on 04-03-2025 Glucose [Mass/Vol] 457 mg/dL High 70-99 [facility] Comment on above: Critical Result(s) C alled at: 2104 by: MADDY VILLALPANDO TO ANDIE FLYNN. Results read back by same. Critical Result(s) Called at: 2104 by: MADDY VILLALPANDO TO ANDIE FLYNN. Results read back by same.Critical Result(s) Called at: by: Results read back by same.Previous reported result: 457 mg/dLEdited by: REY on 04/04/25:0826 AMENDED REPORT 04/04/25 0826 GLU previously reported as: 457 *H mg/dL Critical Result(s) Called at: 2104 by: MADDY VILLALPANDO TO RN . Results read back by same. Serum or plasma alanine lindsey otransferase (ALT) measurementOrdered By: Denise Reyes on 04-03-2025 ALT [Catalytic activity/Vol] 179 U/L High <47 [facility] Serum or plasma albumin kain urement (mass/volume)Ordered By: Denise Reyes on 04-03-2025 Albumin [Mass/Vol] 4.0 g/dL 3.5-5.0 [facility] Serum or plasma albumin/glob ulin mass ratioOrdered By: Denise Reyes on 04-03-2025 Albumin/Globulin [Mass ratio] 1.3 {ratio} 0.9-2.4 [facility] Serum or plasma alkaline buffy sphatase measurementOrdered By: Denise Reyes on 04-03-2025 ALP [Catalytic activity/Vol] 366 U/L High 40-129 [facility] Serum or plasma calcium kain urement (mass/volume)Ordered By: Denise Reyes on 04-03-2025 Calcium [Mass/Vol] 9.9 mg/dL 7.6-11.0 [facility] Serum or plasma cholesterol in HDL measurement (mass/volume)Ordered By: Denise Reyes on 04-03-2025 Cholesterol in HDL [Mass/Vol] 39 mg/dL Low >40 [facility] Comment on above: National Cholesterol Education Program (NCEP) guidelines:<40 mg/dL: Low HDL-cholesterol (major risk factor for CHD)>= 60 mg/dL: High HDL-cholesterol (negative risk factor for CHD)HDL-cholesterol is affected by a number of factors, e.g. smoking, exercise, hormones, sex and age. Serum or plasma cholesterol measurement (mass/volume)Ordered By: Denise Reyes on 04-03-2025 Cholesterol [Mass/Vol] 110 mg/dL <201 [facility] Comment on above: Cholesterol level, D esirable <200 mg/dLBorderline high cholesterol 200-239 mg/dLHigh cholesterol >=240 mg/dLRecommendations of the NCEP Adult Treatment Panel for the following risk-cutoff thresholds for the [place] population. Serum or plasma urea nitroge n measurement (mass/volume)Ordered By: Denise Reyes on 04-03-2025 Urea nitrogen [Mass/Vol] 22 mg/dL High 4-19 [facility] Sodium levelOrdered By: Denise Reyes on 04-03-2025 Sodium [Moles/Vol] 133 mmol/L 133-145 [facility] T4 Free Directon 04-03-2025 T4 FREE DIRECT 1.70 ng/dL High 0.76-1.46 [facility] Comment on above: Order Comment: Order Date: 10/10/24 Order Info: 3024-7 - T4F TODAYS LABS ONLY PER PT Performed By: #### L 501.9985, L506.0400 #### [facility] [address] [facility] [place], [place], [id number] T4 freeOrdered By: Denise alonzo on 04-03-2025 Free T4 [Mass/Vol] 1.70 ng/dL High 0.76-1.46 [facility] TSH DL <= 0.005 mIU/L QnOrde red By: Denise Reyes on 04-03-2025 TSH Qn 1.400 uIU/mL 0.300-4.200 [facility] Thyroid Stim Hormone (TSH)on 04-03-2025 TSH 1.400 uIU/mL Normal 0.300-4.200 [facility] Comment on above: Order Comment: Order Date: 10/10/24 Order Info: 3024-7 - T4F TODAYS LABS ONLY PER PT Performed By: #### L 501.9985, L506.0400 #### [facility] [address] [place], [address] Total proteinOrdered By: Mina Reyes on 04-03-2025 Protein [Mass/Vol] 7.2 g/dL 5.9-8.4 [facility] Triglycerides measurementOrd ered By: Denise Reyes on 04-03-2025 Triglyceride [Mass/Vol] 264 mg/dL High <199 [facility] Comment on above: The drugs N-Acetylcy steine and Metamizole may falsely depress this assay. Normal range: <150 mg/dLBorderline High: 150-199 mg/dLHigh: 200-499 mg/dLVery High: >500 mg/dL Urine albumin measurement detection limit of 20 mg/L or less (mass/volume)Ordered By: Denise Reyes on 04-03-2025 Albumin DL <= 20 mg/L (U) [Mass/Vol] 99.4 mg/L NO RANGE EST. [facility] White blood cell (WBC) count Ordered By: Denise Reyes on 04-03-2025 WBC (Bld) [#/Vol] 11.5 10*3/uL High 4.4-11.0 [facility] Absolute lymphocyte countOrd ered By: Denise Reyes on 01-30-2025 Lymphocytes Auto (Unsp spec) [#/Vol] 2.55 10*3/uL 0.83-4.51 [facility] Absolute neutrophil countOrd ered By: Denise Reyes on 01-30-2025 Neutrophils (Bld) [#/Vol] 8.3 10*3/uL High 2.0-7.7 [facility] Anion gap in Serum or Plasma Ordered By: Denise Reyes on 01-30-2025 Anion gap [Moles/Vol] 19 mmol/L High 5-15 [facility] Automated lymphocyte count a s percentage of total leukocytesOrdered By: Denise Reyes on 01-30-2025 Lymphocytes/100 WBC Auto (Unsp spec) 19.2 % 19-41 [facility] BUN/creatinine ratioOrdered By: Denise Reyes on 01-30-2025 Urea nitrogen/Creatinine [Mass ratio] 28.0 mg/mg High 10-20 [facility] Basophil percentageOrdered B y: Denise Reyes on 01-30-2025 Basophils/100 WBC (Bld) 0.7 % 0-1 [facility] Bilirubin, totalOrdered By: Denise Reyes on 01-30-2025 Bilirubin [Mass/Vol] 0.15 mg/dL 0.00-1.30 [facility] CBC W/Diff, Automatedon 01-04 Absolute Lymph 2.55 X10 3/uL Normal 0.83-4.51 [facility] Comment on above: Order Comment: Order Date: 01/30/25 Order Info: 0184-1 - CBCD Performed By: #### L 500.4050, L501.9520, L500.4100, L100.0100, L502.0250, L501.9985, L506.0400 #### [facility] [address] [place], [address] Absolute Neut 8.3 X10 3/uL High 2.0-7.7 [facility] Comment on above: Order Comment: Order Date: 01/30/25 Order Info: 0184-1 - CBCD Performed By: #### L 500.4050, L501.9520, L500.4100, L100.0100, L502.0250, L501.9985, L506.0400 #### [facility] [address] [place], [place], [phone] (537) Basophils/100 WBC (Bld) 0.7 % Normal 0-1 [facility] Comment on above: Order Comment: Order Date: 01/30/25 Order Info: 0184-1 - CBCD Performed By: #### L 500.4050, L501.9520, L500.4100, L100.0100, L502.0250, L501.9985, L506.0400 #### [facility] [address] [place], [place], [phone] (767) Eosinophils/100 WBC (Bld) 10.5 % High 0-5 [facility] Comment on above: Order Comment: Order Date: 01/30/25 Order Info: 0184-1 - CBCD Performed By: #### L 500.4050, L501.9520, L500.4100, L100.0100, L502.0250, L501.9985, L506.0400 #### [facility] [address] [place], [place], [id number] Erythrocyte distribution width (RBC) [Ratio] 12.9 % Normal 11.6-14.6 [facility] Comment on above: Order Comment: Order Date: 01/30/25 Order Info: 0184-1 - CBCD Performed By: #### L 500.4050, L501.9520, L500.4100, L100.0100, L502.0250, L501.9985, L506.0400 #### [facility] [address] [place], [address] Hematocrit (Bld) [Volume fraction] 43.0 % Normal 40-54 [facility] Comment on above: Order Comment: Order Date: 01/30/25 Order Info: 0184-1 - CBCD Performed By: #### L 500.4050, L501.9520, L500.4100, L100.0100, L502.0250, L501.9985, L506.0400 #### [facility] [address] [place], [place], [phone] ([phone]) Hemoglobin (Bld) [Mass/Vol] 13.7 g/dL Normal 13.0-16.5 [facility] Comment on above: Order Comment: Order Date: 01/30/25 Order Info: 0184-1 - CBCD Performed By: #### L 500.4050, L501.9520, L500.4100, L100.0100, L502.0250, L501.9985, L506.0400 #### [facility] [address] [place], [address] IG% 0.200 Normal 0.0-0.9 [facility] Comment on above: Order Comment: Order Date: 01/30/25 Order Info: 0184-1 - CBCD Result Comment: IG% - Immature Granulocytes (promyelocytes, myelocytes and metamyelocytes) > 1% indicates that a LEFT SHIFT is Present. Performed By: #### L 500.4050, L501.9520, L500.4100, L100.0100, L502.0250, L501.9985, L506.0400 #### [facility] [address] [place], [address] Lymphocytes/100 WBC (Bld) 19.2 % Normal 19-41 [facility] Comment on above: Order Comment: Order Date: 01/30/25 Order Info: 018- - CBCD Performed By: #### L 500.4050, L501.9520, L500.4100, L100.0100, L502.0250, L501.9985, L506.0400 #### [facility] [address] [place], [address] MCH (RBC) [Entitic mass] 29.1 pg Normal 27.0-32.0 [facility] Comment on above: Order Comment: Order Date: 01/30/25 Order Info: [id number] - CBCD Performed By: #### L 500.4050, L501.9520, L500.4100, L100.0100, L502.0250, L501.9985, L506.0400 #### [facility] [address] [place], [address] MCHC (RBC) [Mass/Vol] 31.9 g/dL Low 32-36 [facility] Comment on above: Order Comment: Order Date: 01/30/25 Order Info: 0184 - CBCD Performed By: #### L 500.4050, L501.9520, L500.4100, L100.0100, L502.0250, L501.9985, L506.0400 #### [facility] [address] [place], [address] MCV (RBC) [Entitic vol] 91.3 fL Normal 80-94 [facility] Comment on above: Order Comment: Order Date: 01/30/25 Order Info: [id number] - CBCD Performed By: #### L 500.4050, L501.9520, L500.4100, L100.0100, L502.0250, L501.9985, L506.0400 #### [facility] [address] [place], [address] Monocytes/100 WBC (Bld) 7.2 % Normal 0-10 [facility] Comment on above: Order Comment: Order Date: 01/30/25 Order Info: 0184-1 - CBCD Performed By: #### L 500.4050, L501.9520, L500.4100, L100.0100, L502.0250, L501.9985, L506.0400 #### [facility] [address] [place], [address] Neutrophils/100 WBC (Bld) 62.2 % Normal 47-70 [facility] Comment on above: Order Comment: Order Date: 01/30/25 Order Info: 0184-1 - CBCD Performed By: #### L 500.4050, L501.9520, L500.4100, L100.0100, L502.0250, L501.9985, L506.0400 #### [facility] [address] [place], [address] Nucleated RBC (Bld) [#/Vol] 0 10*3/uL Normal 0-5 [facility] Comment on above: Order Comment: Order Date: 01/30/25 Order Info: 0184-1 - CBCD Performed By: #### L 500.4050, L501.9520, L500.4100, L100.0100, L502.0250, L501.9985, L506.0400 #### [facility] [address] [place], [address] Platelet mean volume (Bld) [Entitic vol] 9.6 fL Normal 6.2-12.0 [facility] Comment on above: Order Comment: Order Date: 01/30/25 Order Info: 0184-1 - CBCD Performed By: #### L 500.4050, L501.9520, L500.4100, L100.0100, L502.0250, L501.9985, L506.0400 #### [facility] [address] [place], [address] Platelets (Bld) [#/Vol] 458 10*3/uL High 150-450 [facility] Comment on above: Order Comment: Order Date: 01/30/25 Order Info: 0184-1 - CBCD Performed By: #### L 500.4050, L501.9520, L500.4100, L100.0100, L502.0250, L501.9985, L506.0400 #### [facility] [address] [place], [address] RBC (Bld) [#/Vol] 4.71 10*6/uL Normal 4.6-6.2 [facility] Comment on above: Order Comment: Order Date: 01/30/25 Order Info: 0184- - CBCD Performed By: #### L 500.4050, L501.9520, L500.4100, L100.0100, L502.0250, L501.9985, L506.0400 #### [facility] [address] [place], [address] RDW SD 43.2 fl Normal 35.1-43.9 [facility] Comment on above: Order Comment: Order Date: 01/30/25 Order Info: 0184-1 - CBCD Performed By: #### L 500.4050, L501.9520, L500.4100, L100.0100, L502.0250, L501.9985, L506.0400 #### [facility] [address] [place], [address] WBC (Bld) [#/Vol] 13.3 10*3/uL High 4.4-11.0 [facility] Comment on above: Order Comment: Order Date: 01/30/25 Order Info: 0184-1 - CBCD Performed By: #### L 500.4050, L501.9520, L500.4100, L100.0100, L502.0250, L501.9985, L506.0400 #### [facility] [address] [place], [address] Calculated very low density lipoprotein (VLDL) cholesterol measurementOrdered By: Denise Reyes on 01-30-2025 Calculated very low density lipoprotein (VLDL) cholesterol measurement 93 mg/dL High 5-40 [facility] Carbon dioxide, total [Moles /volume] in Central venous bloodOrdered By: Denise Reyes on 01-30-2025 CO2 [Moles/Vol] 13.6 mmol/L Low 21.0-32.0 [facility] Chloride assayOrdered By: Elaine Reyes on 01-30-2025 Chloride [Moles/Vol] 96 mmol/L Low 98-108 [facility] Comprehensive Metabolic Prof ilon 01-30-2025 Albumin [Mass/Vol] 4.0 g/dL Normal 3.5-5.0 [facility] Comment on above: Order Comment: Order Date: 01/30/25Order Info: [id number] - CMPOrder Info: [id number] - LIPIDOrder Info: [id number] - TSHOrder Info: 3024-7 - T4F Performed By: #### L 501.9060 #### [facility] [address] [place], [place], [id number] Albumin/Globulin [Mass ratio] 1.2 {ratio} Normal 0.9-2.4 [facility] Comment on above: Order Comment: Order Date: 01/30/25Order Info: 0786-1 - CMPOrder Info: [id number] - LIPIDOrder Info: [id number] - TSHOrder Info: 3024-7 - T4F Performed By: #### L 501.9060 #### [facility] [address] [place], [place], [id number] ALK PHOS 642 U/L High 40-129 [facility] Comment on above: Order Comment: Order Date: 01/30/25Order Info: [id number] - CMPOrder Info: [id number] - LIPIDOrder Info: [id number] - TSHOrder Info: 3024-7 - T4F Performed By: #### L 501.9060 #### [facility] [address] [place], [address] ALT [Catalytic activity/Vol] 146 U/L High <=46 [facility] Comment on above: Order Comment: Order Date: 01/30/25Order Info: 0786-1 - CMPOrder Info: [id number] - LIPIDOrder Info: [id number] - TSHOrder Info: 3024-7 - T4F Performed By: #### L 501.9060 #### [facility] [address] [place], [address] AST [Catalytic activity/Vol] 52 U/L High <=37 [facility] Comment on above: Order Comment: Order Date: 01/30/25Order Info: 0786-1 - CMPOrder Info: [id number] - LIPIDOrder Info: [id number] - TSHOrder Info: 3024-7 - T4F Performed By: #### L 501.9060 #### [facility] [address] [place], [address] Bilirubin [Mass/Vol] 0.15 mg/dL Normal 0.00-1.30 [facility] Comment on above: Order Comment: Order Date: 01/30/25Order Info: 0786-1 - CMPOrder Info: [id number] - LIPIDOrder Info: [id number] - TSHOrder Info: 3024-7 - T4F Performed By: #### L 501.9060 #### [facility] [address] [place], [address] BUN/CRE 28.0 RATIO High 10-20 [facility] Comment on above: Order Comment: Order Date: 01/30/25Order Info: 0786-1 - CMPOrder Info: [id number] - LIPIDOrder Info: [id number] - TSHOrder Info: 3024-7 - T4F Performed By: #### L 501.9060 #### [facility] [address] [place], [place], [id number] Calcium [Mass/Vol] 10.3 mg/dL Normal 7.6-11.0 [facility] Comment on above: Order Comment: Order Date: 01/30/25Order Info: 0786-1 - CMPOrder Info: [id number] - LIPIDOrder Info: [id number] - TSHOrder Info: 3024-7 - T4F Performed By: #### L 501.9060 #### [facility] [address] [place], [address] Chloride [Moles/Vol] 96 mmol/L Low 98-108 [facility] Comment on above: Order Comment: Order Date: 01/30/25Order Info: 0786-1 - CMPOrder Info: [id number] - LIPIDOrder Info: [id number] - TSHOrder Info: 3024-7 - T4F Performed By: #### L 501.9060 #### [facility] [address] [place], [address] CO2 [Moles/Vol] 13.6 mmol/L Low 21.0-32.0 [facility] Comment on above: Order Comment: Order Date: 01/30/25Order Info: 0786-1 - CMPOrder Info: [id number] - LIPIDOrder Info: [id number] - TSHOrder Info: 3024-7 - T4F Performed By: #### L 501.9060 #### [facility] [address] [place], [address] Creatinine [Mass/Vol] 0.85 mg/dL Normal 0.70-1.20 [facility] Comment on above: Order Comment: Order Date: 01/30/25Order Info: 0786-1 - CMPOrder Info: [id number] - LIPIDOrder Info: [id number] - TSHOrder Info: 3024-7 - T4F Performed By: #### L 501.9060 #### [facility] [address] [place], [address] GAP 19 High 5-15 [facility] Comment on above: Order Comment: Order Date: 01/30/25Order Info: 0786-1 - CMPOrder Info: [id number] - LIPIDOrder Info: 6-3 - TSHOrder Info: 3024-7 - T4F Performed By: #### L 501.9060 #### [facility] [address] [place], [address] GFR/1.73 sq M.predicted among non-blacks MDRD (S/P/Bld) [Vol rate/Area] 111 mL/min/{1.73_m2} Normal >60 [facility] Comment on above: Order Comment: Order Date: 01/30/25Order Info: 07-1 - CMPOrder Info: [id number] - LIPIDOrder Info: 6-3 - TSHOrder Info: 3024-7 - T4F Result Comment: mL/m in/1.73m2 CKD-EPI Creatinine Equation (2020) Performed By: #### L 501.9060 #### [facility] [address] [place], [address] Globulin (S) [Mass/Vol] 3.4 g/dL Normal 2.2-4.2 [facility] Comment on above: Order Comment: Order Date: 01/30/25Order Info: 0786-1 - CMPOrder Info: [id number] - LIPIDOrder Info: [id number] - TSHOrder Info: 3024-7 - T4F Performed By: #### L 501.9060 #### [facility] [address] [place], [address] Glucose [Mass/Vol] 543 mg/dL Invalid Interpretation Code 70-99 [facility] Comment on above: Order Comment: Order Date: 01/30/25Order Info: 0786-1 - CMPOrder Info: [id number] - LIPIDOrder Info: [id number] - TSHOrder Info: 3024-7 - T4F Result Comment: Crit ical Result(s) Called at: 2135 by:??WILLIAM GODINEZ TO DR. Emani PEREZ Results read back by same. Performed By: #### L 501.9060 #### [facility] [address] [place], [address] Potassium [Moles/Vol] 4.4 mmol/L Normal 3.3-5.1 [facility] Comment on above: Order Comment: Order Date: 01/30/25Order Info: 0786-1 - CMPOrder Info: [id number] - LIPIDOrder Info: [id number] - TSHOrder Info: 3024-7 - T4F Performed By: #### L 501.9060 #### [facility] [address] [place], [address] Sodium [Moles/Vol] 128 mmol/L Low 133-145 [facility] Comment on above: Order Comment: Order Date: 01/30/25Order Info: 0786-1 - CMPOrder Info: [id number] - LIPIDOrder Info: [id number] - TSHOrder Info: 3024-7 - T4F Performed By: #### L 501.9060 #### [facility] [address] [place], [address] T PROT 7.4 g/dL Normal 5.9-8.4 [facility] Comment on above: Order Comment: Order Date: 01/30/25Order Info: 0786-1 - CMPOrder Info: [id number] - LIPIDOrder Info: [id number] - TSHOrder Info: 3024-7 - T4F Performed By: #### L 501.9060 #### [facility] [address] [place], [address] Urea nitrogen [Mass/Vol] 24 mg/dL High 4-19 [facility] Comment on above: Order Comment: Order Date: 01/30/25Order Info: 0786-1 - CMPOrder Info: [id number] - LIPIDOrder Info: [id number] - TSHOrder Info: 3024-7 - T4F Performed By: #### L 501.9060 #### [facility] [address] [place], [address] Eosinophil percentageOrdered By: Denise Reyes on 01-30-2025 Eosinophils/100 WBC (Bld) 10.5 % High 0-5 [facility] Erythrocyte distribution wid th ratioOrdered By: Denise Reyes on 01-30-2025 Erythrocyte distribution width (RBC) [Ratio] 12.9 % 11.6-14.6 [facility] Erythrocyte distribution wid th standard deviationOrdered By: Denise Reyes on 01-30-2025 Erythrocyte distribution width (RBC) [Ratio] 43.2 fl 35.1-43.9 [facility] Glomerular filtration rate ( GFR) estimation/1.73 sq m using serum, plasma, or whole bOrdered By: Denise Reyes on 01-30-2025 GFR/1.73 sq M.predicted among non-blacks MDRD (S/P/Bld) [Vol rate/Area] 111 mL/min/{1.73_m2} >60 [facility] Comment on above: mL/min/1.73m2 CKD-EP I Creatinine Equation (2020) Hematocrit Auto (Bld) [Volum e fraction]Ordered By: Denise Reyes on 01-30-2025 Hematocrit (Bld) [Volume fraction] 43.0 % 40-54 [facility] Hemoglobin A1con 01-30-2025 HbA1c (Bld) [Mass fraction] 12.2 % Normal <=5.6 [facility] Comment on above: Order Comment: Order Date: 01/30/25Order Info: [id number] - A1C Performed By: #### L 501.9060 #### [facility] [address] [place], [place] [address], [place], [address] Hemoglobin A1c percentageOrd ered By: Denise Reyes on 01-30-2025 HbA1c (Bld) [Mass fraction] 12.2 % >5.7 [facility] Hemoglobin measurementOrdere d By: Denise Reyes on 01-30-2025 Hemoglobin (Bld) [Mass/Vol] 13.7 g/dL 13.0-16.5 [facility] Immature granulocytes/100 WB C Auto (Bld)Ordered By: Denise Reyes on 01-30-2025 Immature granulocytes/100 WBC (Bld) 0.200 % 0.0-0.9 [facility] Comment on above: IG% - Immature Granu locytes (promyelocytes, myelocytes and metamyelocytes) > 1% indicates that a LEFT SHIFT is Present. L506.1001on 01-30-2025 Vitamin D 25-OH 31.6 ng/mL Normal 30-100 [facility] Comment on above: Order Comment: Order Date: 05/13/24 Order Info: 0786-1 - CMP Order Info: [id number] - CPK Order Info: [id number] - MG Order Info: [id number] - TSH Order Info: [id number] - EMBER Result Comment: Bindu min D Status Deficiency: <20 ng/mL (50nmol/L) Insufficiency: 20-30 ng/mL (50-75 nmol/L) Sufficiency: 30-100 ng/mL (75-250 nmol/L) Toxicity: >100 ng/mL (>250 nmol/L) Performed By: #### L 500.4050, L501.3620, L501.9520, L503.6550, L501.5200 #### [facility] [address] [place], [place], [id number] LDL calc ser/plasOrdered By: Denise Reyes on 01-30-2025 Cholesterol in LDL [Mass/Vol] 23 mg/dL [facility] Comment on above: Pwqbjklwar=818-538 m g/dL & Higher Zbuj=558 mg/dL or greater Laboratory - Chemistry and C hemistry - challengeOrdered By: Denise Reyes on 01-30-2025 AST [Catalytic activity/Vol] 52 U/L High <38 [facility] Lipid Profileon 01-30-2025 CHOL:HDL 3.26 Normal [facility] Comment on above: Order Comment: Order Date: 01/30/25Order Info: 0786- - CMPOrder Info: [id number] - LIPIDOrder Info: [id number] - TSHOrder Info: 3024-7 - T4F Performed By: #### L 501.9060 #### [facility] [address] [place], [place], [address] Cholesterol [Mass/Vol] 167 mg/dL Normal <=200 [facility] Comment on above: Order Comment: Order Date: 01/30/25Order Info: 0786-1 - CMPOrder Info: [id number] - LIPIDOrder Info: [id number] - TSHOrder Info: [id number] - T4F Result Comment: Chol esterol level, Desirable <200 mg/dL Borderline high cholesterol 200-239 mg/dL High cholesterol >=240 mg/dL Recommendations of the NCEP Adult Treatment Panel for the following risk-cutoff thresholds for the [place] population. Performed By: #### L 501.9060 #### [facility] [address] [place], [address] Cholesterol in HDL [Mass/Vol] 51 mg/dL Normal [facility] Comment on above: Order Comment: Order Date: 01/30/25Order Info: 0786-1 - CMPOrder Info: [id number] - LIPIDOrder Info: 63 - TSHOrder Info: 7 - T4F Result Comment: [place] Cholesterol Education Program (NCEP) guidelines: <40 mg/dL: Low HDL-cholesterol (major risk factor for CHD) >= 60 mg/dL: High HDL-cholesterol (negative risk factor for CHD) HDL-cholesterol is affected by a number of factors, e.g. smoking, exercise, hormones, sex and age. Performed By: #### L 501.9060 #### [facility] [address] [place], [address] Cholesterol in LDL [Mass/Vol] 23 mg/dL Normal [facility] Comment on above: Order Comment: Order Date: 01/30/25Order Info: 0786-1 - CMPOrder Info: [id number] - LIPIDOrder Info: 6-3 - TSHOrder Info: [id number] - T4F Result Comment: Bord kqrlkj=732-465 mg/dL Higher Afld=363 mg/dL or greater Performed By: #### L [id number] #### [facility] [address] [place], [address] Cholesterol in VLDL [Mass/Vol] 93 mg/dL High 5-40 [facility] Comment on above: Order Comment: Order Date: 01/30/25Order Info: 0786-1 - CMPOrder Info: [id number] - LIPIDOrder Info: [id number] - TSHOrder Info: 7 - T4F Performed By: #### L 501.9060 #### [facility] [address] [facility] [place], [place], [address] Triglyceride [Mass/Vol] 466 mg/dL High [facility] Comment on above: Order Comment: Order Date: 01/30/25Order Info: [id number] - CMPOrder Info: [id number] - LIPIDOrder Info: [id number] - TSHOrder Info: 7 - T4F Result Comment: The drugs N-Acetylcysteine and Metamizole may falsely depress this assay. Normal range: <150 mg/dL Borderline High: 150-199 mg/dL High: 200-499 mg/dL Very High: >500 mg/dL Performed By: #### L [id number] #### [facility] [address] [facility] [place], [place], [address] MCV (mean corpuscular volume ) determinationOrdered By: Denise Reyes on 01-30-2025 MCV (RBC) [Entitic vol] 91.3 fL 80-94 [facility] Mean corpuscular hemoglobin (MCH) determinationOrdered By: Denise Reyes on 01-30-2025 MCH (RBC) [Entitic mass] 29.1 pg 27.0-32.0 [facility] Mean corpuscular hemoglobin concentration (MCHC) determinationOrdered By: Denise Reyes on 01-30-2025 MCHC (RBC) [Mass/Vol] 31.9 g/dL Low 32-36 [facility] Mean platelet volume determi nationOrdered By: Denise Reyes on 01-30-2025 Platelet mean volume (Bld) [Entitic vol] 9.6 fL 6.2-12.0 [facility] Monocyte percentageOrdered B y: Denise Reyes on 01-30-2025 Monocytes/100 WBC (Bld) 7.2 % 0-10 [facility] Neutrophil percentageOrdered By: Denise Reyes on 01-30-2025 Neutrophils/100 WBC (Bld) 62.2 % 47-70 [facility] Nucleated red blood cell per centageOrdered By: Denise Reyes on 01-30-2025 Nucleated RBC/100 WBC (Bld) [Ratio] 0 % 0-5 [facility] Platelet countOrdered By: Elaine Reyes on 01-30-2025 Platelets (Bld) [#/Vol] 458 10*3/uL High 150-450 [facility] Potassium measurement (mass/ volume)Ordered By: Denise Reyes on 01-30-2025 Potassium (Unsp spec) [Mass/Vol] 4.4 mmol/L 3.3-5.1 [facility] RBC Auto (Bld) [#/Vol]Ordere d By: Denise Reyes on 01-30-2025 RBC (Bld) [#/Vol] 4.71 10*6/uL 4.6-6.2 [facility] Random urine creatinine kain urement (mass/volume)Ordered By: Denise Reyes on 01-30-2025 Creatinine Unsp time (U) [Mass/Vol] 19.40 mg/dL Low 39.00-259.00 [facility] Screening total cholesterol/ high density lipoprotein (HDL) cholesterol ratioOrdered By: Denise Reyes on 01-30-2025 Cholesterol.total/Prerna sterol in HDL [Mass ratio] 3.26 {ratio} [facility] Serum creatinine measurement (mass/volume)Ordered By: Denise Reyes on 01-30-2025 Creatinine [Mass/Vol] 0.85 mg/dL 0.70-1.20 [facility] Serum globulin measurementOr dered By: Denise Reyes on 01-30-2025 Globulin (S) [Mass/Vol] 3.4 g/dL 2.2-4.2 [facility] Serum glucose measurement (m ass/volume)Ordered By: Denise Reyes on 01-30-2025 Glucose [Mass/Vol] 543 mg/dL High 70-99 [facility] Comment on above: Critical Result(s) C alled at: 2135 by: WILLIAM GODINEZ TO DR. Emani PEREZ Results read back by same. Serum or plasma alanine lindsey otransferase (ALT) measurementOrdered By: Denise Reyes on 01-30-2025 ALT [Catalytic activity/Vol] 146 U/L High <47 [facility] Serum or plasma albumin kain urement (mass/volume)Ordered By: Denise Reyes on 01-30-2025 Albumin [Mass/Vol] 4.0 g/dL 3.5-5.0 [facility] Serum or plasma albumin/glob ulin mass ratioOrdered By: Denise Reyes on 01-30-2025 Albumin/Globulin [Mass ratio] 1.2 {ratio} 0.9-2.4 [facility] Serum or plasma alkaline buffy sphatase measurementOrdered By: Denise Reyes on 01-30-2025 ALP [Catalytic activity/Vol] 642 U/L High 40-129 [facility] Serum or plasma calcium kain urement (mass/volume)Ordered By: Denise Reyes on 01-30-2025 Calcium [Mass/Vol] 10.3 mg/dL 7.6-11.0 [facility] Serum or plasma cholesterol in HDL measurement (mass/volume)Ordered By: Denise Reyes on 01-30-2025 Cholesterol in HDL [Mass/Vol] 51 mg/dL >40 [facility] Comment on above: National Cholesterol Education Program (NCEP) guidelines:<40 mg/dL: Low HDL-cholesterol (major risk factor for CHD)>= 60 mg/dL: High HDL-cholesterol (negative risk factor for CHD)HDL-cholesterol is affected by a number of factors, e.g. smoking, exercise, hormones, sex and age. Serum or plasma cholesterol measurement (mass/volume)Ordered By: Denise Reyes on 01-30-2025 Cholesterol [Mass/Vol] 167 mg/dL <201 [facility] Comment on above: Cholesterol level, D esirable <200 mg/dLBorderline high cholesterol 200-239 mg/dLHigh cholesterol >=240 mg/dLRecommendations of the NCEP Adult Treatment Panel for the following risk-cutoff thresholds for the [place] population. Serum or plasma urea nitroge n measurement (mass/volume)Ordered By: Denise Reyes on 01-30-2025 Urea nitrogen [Mass/Vol] 24 mg/dL High 4-19 [facility] Sodium levelOrdered By: Denise Reyes on 01-30-2025 Sodium [Moles/Vol] 128 mmol/L Low 133-145 [facility] T4 Free Directon 01-30-2025 T4 FREE DIRECT 1.20 ng/dL Normal 0.76-1.46 [facility] Comment on above: Order Comment: Order Date: 01/30/25Order Info: [id number] - CMPOrder Info: [id number] - LIPIDOrder Info: 3 - TSHOrder Info: 7 - T4F Performed By: #### L [id number] #### [facility] [address] [facility] [place], [address] T4 freeOrdered By: Denise alonzo on 01-30-2025 Free T4 [Mass/Vol] 1.20 ng/dL 0.76-1.46 [facility] TSH DL <= 0.005 mIU/L QnOrde red By: Denise Reyes on 01-30-2025 TSH Qn 5.500 uIU/mL High 0.300-4.200 [facility] Thyroid Stim Hormone (TSH)on 01-30-2025 TSH 5.500 uIU/mL High 0.300-4.200 [facility] Comment on above: Order Comment: Order Date: 01/30/25Order Info: 0786-1 - CMPOrder Info: [id number] - LIPIDOrder Info: 3 - TSHOrder Info: [id number] - T4F Performed By: #### L [id number] #### [facility] [address] [facility] [address] [place], [place], [id number] Total proteinOrdered By: Mina Reyes on 01-30-2025 Protein [Mass/Vol] 7.4 g/dL 5.9-8.4 [facility] Triglycerides measurementOrd ered By: Denise Reyes on 01-30-2025 Triglyceride [Mass/Vol] 466 mg/dL High <199 [facility] Comment on above: The drugs N-Acetylcy steine and Metamizole may falsely depress this assay. Normal range: <150 mg/dLBorderline High: 150-199 mg/dLHigh: 200-499 mg/dLVery High: >500 mg/dL Urine albumin measurement [facility] detection limit of 20 mg/L or less (mass/volume)Ordered By: Denise Reyes on 01-30-2025 Albumin DL <= 20 mg/L (U) [Mass/Vol] 632.0 mg/L NO RANGE EST. [facility] White blood cell (WBC) count Ordered By: Denise Reyes on 01-30-2025 WBC (Bld) [#/Vol] 13.3 10*3/uL High 4.4-11.0 [facility] Hepatitis Panel Acuteon 12-06 COMMENT Comment Normal . [facility] Comment on above: Result Comment: Not infected with HCV unless early or acute infection is suspected (which may be delayed in an immunocompromised individual), or other evidence exists to indicate HCV infection. Performed at: [facility] [id number] Inhalation Therapist: Can Calvo PhD, Phone: [phone] Performed By: #### L 3000.0375 #### [facility] [address] [place], [address] HEP B CORE,IgM Negative Normal Negative [facility] Comment on above: Performed By: #### L 3000.0375 #### [facility] [address] [place], [address] HEP B SURF AG Negative Normal Negative [facility] Comment on above: Performed By: #### L 3000.0375 #### [facility] [address] [facility], [address] HEP C VIRUS AB Non-Reactive Normal Non Reactive [facility] Comment on above: Performed By: #### L 3000.0375 #### [facility] [address] [facility] [place], [address] HEPATITIS A-IgM Negative Normal Negative [facility] Comment on above: Result Comment: A ne gative anti-HAV IgM result suggests no recent or current HAV infection. Performed By: #### L 3000.0375 #### [facility] [address] [place], [address] Emergency Department Summary on 12-20-2024 Emergency Department Summary [facility] Medical Records Department [address] [place] [address] Emergency Department Summary 12/20/24 MR#: [id number] Acct: [id number] Name: DANNY HEATH Rep #: [id number] : 1980 44 From: Jorge Alberto Durand DO PCP: Dr. Denise Reyes MD Status:DEP ER Location: ED HPI History of Present Illness Chief Complaint: Abn Labs Informant: patient, legal guardian (Patient's sister) and family Narrative Narrative: Patient is a 44-year-old male with history of insulin-dependent diabetes hypothyroidism and bipolar disorder. His sister who is his legal guardian states that he had blood work done today and his liver enzymes were elevated. She states in the past they have been slightly bumped but they were much greater today. She states that there has been no recent change to his medication. 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 However she did make him finally quit in the last 2 to 3 days and feels that he is developing withdrawal symptoms. However as it is unsure why his liver enzymes suddenly spiked he was advised to come in for further evaluation [facility] Medical History Bipolar disorder Contact dermatitis due to poison los Dextromethorphan use disorder, mild, abuse Diabetes Home Medications ???Medication ???Instructions ???Recorded ???Last Taken ???Type cholecalciferol (vitamin D3) 50 50 mcg PO DAILY 12/24/23 Unknown H istory mcg (2,000 unit) capsule flash glucose scanning reader #1 ea 12/24/23 Unknown Rx (FreeStyle Aniya 2 [place]) lithium carbonate 450 mg 450 mg PO BID 30 days #60 tabs Unknown History tablet,extended release lurasidone 40 mg tablet (Latuda) 60 mg PO DAILY 01/31/24 Unknown Hi story melatonin 5 mg tablet 5 mg PO HS 01/31/24 Unknown Histor y BD Ultra-Fine Hilary Pen Needle 32 #100 ea 03/24/24 Unknown Rx gauge x 5/32 (pen needle, diabetic) levothyroxine 200 mcg tablet 200 mcg PO DAILY #90 tabs 05/13/24 Unknown Rx flash glucose sensor (FreeStyle #6 ea 05/15/24 Unknown Rx Aniya 2 Sensor kit) insulin regular hum U-500 conc 500 50 unit (0.1 mL) subcut TIDWMEAL 05/15/24 Unknown Rx unit/mL(3 mL) subcut pen (Humulin #27 mL R U-500 (Conc) Insulin Kwikpen) semaglutide 1 mg/dose (4 mg/3 mL) 1 mg (0.75 mL) subcut QWEEK #9 mL 05/15/24 Unknown Rx subcutaneous pen injector (Ozempic) rosuvastatin 5 mg tablet 5 mg PO DAILY #90 tabs 06/30/24 Un known Rx metformin 1,000 mg tablet 1,000 mg PO BIDWMEAL #60 tabs 07/07 01/26 Unknown Rx ondansetron 4 mg disintegrating 4 mg PO TID PRN nausea and 5 Unknown Rx tablet vomiting #21 tabs Allergy/AdvReac Type Severity Reaction Status Date / Time No Known Allergies Allergy Verified 12/19/24 21:25 Family History Other Alcohol abuse Anemia Arthritis Diabetes H/O transfusion of whole blood Heart disease High cholesterol Hypertension Mental disorder Myocardial infarction Thyroid disorder Social History (Updated 12/19/24 @ 21:45 by Macy Quigley) household members: family housing: house Smoking Status: Never smoker alcohol intake: never substance use type: does not use what type of physical activity do you participate in: walking frequency: daily ROS ROS ED Constitutional Constitutional ED: Denies chills or fever(s) Eyes Eyes: Denies change in vision ENT ENT ED: Denies sore throat Cardiovascular Cardiovascular: Denies chest pain or palpitations Respiratory/Chest Respiratory/Chest: Denies cough or dyspnea Gastrointestinal Gastrointestinal: Reports abdominal pain, nausea and vomiting; Denies diarrhea Genitourinary Genitourinary ED: Denies dysuria Musculoskeletal Musculoskeletal: Denies myalgias Integumentary Denies rash Neurologic Neurologic: Denies headache(s) Hematologic/Lymphati c Hematologic/Lymphati c: Denies easy bleeding or easy bruising EXAM Physical Exam Const Vital Signs: 12/19/24 21:25 12/19/24 21:45 12/19/24 23:54 Temperature 96.7 F L Temperature Source Temporal Pulse Rate 88 86 Respiratory Rate 18 16 Respiratory Effort Normal Non-Labored Respiratory Pattern Normal Blood Pressure 132/98 H 137/95 H Blood Pressure Mean 109 109 Pulse Ox 100 98 Oxygen Delivery Method Room Air Room Air 12/20/24 00:29 Temperature 98.7 F Temperature Source Pulse Rate 86 Respiratory Rate 16 Respiratory Effort Respiratory Pattern Blood Pressure 136/86 H Blood Pressure Mean 102 Pulse Ox 96 Oxygen Delivery Method Positive well nourished and well developed General Appearance ED: well developed HEENT R (more content not included)... Normal [facility] Abdomen/Pelvis W IV Cont ONL Yon 12-19-2024 Abdomen/Pelvis W IV Cont ONLY [facility] [address], [place] [address] Abdomen/Pelvis W IV Cont ONLY MR#: [id number] Acct: [id number] Name: DANNY HEATH Rep #: [id number] : 1980 M 44 From: Laura Jaramillo MD PCP: Dr. Denise Reyes MD Status: REG ER Study: Abdomen/Pelvis W IV Cont ONLY Date of Exam: Exam# [id number] Ordering Dr: Jorge Alberto Durand DO PROCEDURE: ABDOMEN/PELVIS W IV CONT ONLY REASON FOR EXAM: Elevated liver enzymes TECHNIQUE: Abdomen and pelvis CT with intravenous contrast. Multiplanar reconstructions were performed. COMPARISON: 02/21/2024 FINDINGS: Lower chest: Unremarkable. Liver: Unremarkable. Biliary/gallbladder: A couple of punctate calculi are present in the gallbladder. Pancreas: Unremarkable. Spleen: Unremarkable. Adrenal glands: Unremarkable. Kidneys: Unremarkable. Gastrointestinal/per itoneum: No acute abnormality.The appendix is unremarkable.No free air or free fluid. Vascular: Unremarkable. Lymph nodes: No enlarged lymph nodes by CT size criteria. Pelvic organs: Unremarkable. Bladder: Mild diffuse bladder wall thickening. Bones: Unremarkable. Soft tissues: Unremarkable. CT/Abdomen/Pelvis W IV Cont ONLY IMPRESSION: 1. Mild diffuse bladder wall thickening, possibly due to cystitis. 2. Cholelithiasis. Reading Location: [facility] CC: Dr. Denise Reyes MD; Jorge Alberto Durand DO Sausage Inspector: Signed Normal [facility] Absolute lymphocyte countOrd ered By: Denise Reyes on 12-19-2024 Lymphocytes Auto (Unsp spec) [#/Vol] 1.57 10*3/uL 0.83-4.51 [facility] Absolute neutrophil countOrd ered By: Denise Reyes on 12-19-2024 Neutrophils (Bld) [#/Vol] 11.5 10*3/uL High 2.0-7.7 [facility] Acetaminophen (Tylenol) Leve dashawn 12-19-2024 Acetaminophen [Mass/Vol] ug/mL Low 10.0-30.0 [facility] Comment on above: Performed By: #### L 501.9985, L506.0400 #### [facility] [place], [address] Albumin to globulin ratioOrd ered By: Jorge Alberto Durand on 12-19-2024 Albumin/Globulin [Mass ratio] 0.7 {ratio} Low 0.9-2.4 [facility] Albumin to globulin ratioOrd ered By: Denise Reyes on 12-19-2024 Albumin/Globulin [Mass ratio] 0.7 {ratio} Low 0.9-2.4 [facility] Automated lymphocyte count a s percentage of total leukocytesOrdered By: Denise Reyes on 12-19-2024 Lymphocytes/100 WBC Auto (Unsp spec) 10.6 % Low 19-41 [facility] Basophil percentageOrdered B y: Denise Reyes on 12-19-2024 Basophils/100 WBC (Bld) 0.6 % 0-1 [facility] Bilirubin, totalOrdered By: Jorge Alberto Durand on 12-19-2024 Bilirubin [Mass/Vol] 0.50 mg/dL 0.20-1.00 [facility] Comment on above: For patients on eltr ombopag therapy, use of Dimension [place] TBIL is not recommended. Bilirubin, totalOrdered By: Denise Reyes on 12-19-2024 Bilirubin [Mass/Vol] 0.60 mg/dL 0.20-1.00 [facility] Comment on above: For patients on eltr ombopag therapy, use of Dimension [place] TBIL is not recommended. Blood urea nitrogen (BUN)/cr eatinine ratioOrdered By: Jorge Alberto Durand on 12-19-2024 Urea nitrogen/Creatinine [Mass ratio] 33.6 mg/mg High 08-24 [facility] Blood urea nitrogen (BUN)/cr eatinine ratioOrdered By: Denise Reyes on 12-19-2024 Urea nitrogen/Creatinine [Mass ratio] 29.2 mg/mg High - [facility] CBC W/Diff, Automatedon 12-06 Absolute Lymph 1.57 X10 3/uL Normal 0.83-4.51 [facility] Comment on above: Order Comment: Order Date: 05/13/24 Order Info: 0786-1 - CMP Order Info: 2157-6 - CPK Order Info: [id number] - MG Order Info: 301-3 - TSH Order Info: 227-4 - EMBER Performed By: #### L 500.4050, L501.3620, L501.9520, L503.6550, L501.5200 #### [facility] [address] [place], [address] Absolute Neut 11.5 X10 3/uL High 2.0-7.7 [facility] Comment on above: Order Comment: Order Date: 05/13/24 Order Info: 0786-1 - CMP Order Info: 2157-6 - CPK Order Info: [id number] - MG Order Info: 3016-3 - TSH Order Info: 2276-4 - EMBER Performed By: #### L 500.4050, L501.3620, L501.9520, L503.6550, L501.5200 #### [facility] [address] [place], [address] Basophils/100 WBC (Bld) 0.6 % Normal 0-1 [facility] Comment on above: Order Comment: Order Date: 05/13/24 Order Info: 0786-1 - CMP Order Info: 2157-6 - CPK Order Info: 15213-2 - MG Order Info: 3 - TSH Order Info: 4 - EMBER Performed By: #### L 500.4050, L501.3620, L501.9520, L503.6550, L501.5200 #### [facility] [address] [place], [address] Eosinophils/100 WBC (Bld) 3.9 % Normal 0-5 [facility] Comment on above: Order Comment: Order Date: 05/13/24 Order Info: 86-1 - CMP Order Info: 2157-6 - CPK Order Info: 15038-1 - MG Order Info: 3 - TSH Order Info: 4 - EMBER Performed By: #### L 500.4050, L501.3620, L501.9520, L503.6550, L501.5200 #### [facility] [address] [place], [address] Erythrocyte distribution width (RBC) [Ratio] 12.2 % Normal 11.6-14.6 [facility] Comment on above: Order Comment: Order Date: 05/13/24 Order Info: 86-1 - CMP Order Info: 2157-6 - CPK Order Info: [id number] - MG Order Info: 3 - TSH Order Info: 4 - EMBER Performed By: #### L 500.4050, L501.3620, L501.9520, L503.6550, L501.5200 #### [facility] [address] [place], [address] Hematocrit (Bld) [Volume fraction] 44.6 % Normal 40-54 [facility] Comment on above: Order Comment: Order Date: 05/13/24 Order Info: 0786-1 - CMP Order Info: 2157-6 - CPK Order Info: [id number] - MG Order Info: 3 - TSH Order Info: 2276-02 - EMBER Performed By: #### L 500.4050, L501.3620, L501.9520, L503.6550, L501.5200 #### [facility] [address] [place], [address] Hemoglobin (Bld) [Mass/Vol] 14.6 g/dL Normal 13.0-16.5 [facility] Comment on above: Order Comment: Order Date: 05/13/24 Order Info: 86-1 - CMP Order Info: 2157-6 - CPK Order Info: [id number] - MG Order Info: 3016-01 - TSH Order Info: 2276-02 - EMBER Performed By: #### L 500.4050, L501.3620, L501.9520, L503.6550, L501.5200 #### [facility] [address] [place], [address] IG% 0.400 Normal 0.0-0.9 [facility] Comment on above: Order Comment: Order Date: 05/13/24 Order Info: 785-11 - CMP Order Info: 76 - CPK Order Info: [id number] - MG Order Info: 3016-01 - TSH Order Info: 2276-02 - EMBER Result Comment: IG% - Immature Granulocytes (promyelocytes, myelocytes and metamyelocytes) > 1% indicates that a LEFT SHIFT is Present. Performed By: #### L 500.4050, L501.3620, L501.9520, L503.6550, L501.5200 #### [facility] [address] [place], [address] Lymphocytes/100 WBC (Bld) 10.6 % Low 19-41 [facility] Comment on above: Order Comment: Order Date: 05/13/24 Order Info: 86-1 - CMP Order Info: 2157-6 - CPK Order Info: [id number] - MG Order Info: 3016-01 - TSH Order Info: 2276-02 - EMBER Performed By: #### L 500.4050, L501.3620, L501.9520, L503.6550, L501.5200 #### [facility] [address] [place], [address] MCH (RBC) [Entitic mass] 31.9 pg Normal 27.0-32.0 [facility] Comment on above: Order Comment: Order Date: 05/13/24 Order Info: 86-1 - CMP Order Info: 2157-6 - CPK Order Info: [id number] - MG Order Info: 3016-3 - TSH Order Info: 227-4 - EMBER Performed By: #### L 500.4050, L501.3620, L501.9520, L503.6550, L501.5200 #### [facility] [address] [place], [address] MCHC (RBC) [Mass/Vol] 32.7 g/dL Normal 32-36 [facility] Comment on above: Order Comment: Order Date: 05/13/24 Order Info: 785-1 - CMP Order Info: 2157-6 - CPK Order Info: 33700-9 - MG Order Info: 3016-3 - TSH Order Info: 227-4 - EMBER Performed By: #### L 500.4050, L501.3620, L501.9520, L503.6550, L501.5200 #### [facility] [address] [place], [address] MCV (RBC) [Entitic vol] 97.4 fL High 80-94 [facility] Comment on above: Order Comment: Order Date: 05/13/24 Order Info: 785-1 - CMP Order Info: 2157-6 - CPK Order Info: [id number] - MG Order Info: 3016-3 - TSH Order Info: 2276-4 - EMBER Performed By: #### L 500.4050, L501.3620, L501.9520, L503.6550, L501.5200 #### [facility] [address] [place], [address] Monocytes/100 WBC (Bld) 7.3 % Normal 0-10 [facility] Comment on above: Order Comment: Order Date: 05/13/24 Order Info: 86-1 - CMP Order Info: 7-6 - CPK Order Info: [id number] - MG Order Info: 3016-3 - TSH Order Info: 2276-4 - EMBER Performed By: #### L 500.4050, L501.3620, L501.9520, L503.6550, L501.5200 #### [facility] [address] [place], [address] Neutrophils/100 WBC (Bld) 77.2 % High 47-70 [facility] Comment on above: Order Comment: Order Date: 05/13/24 Order Info: 785- - CMP Order Info: 2156-6 - CPK Order Info: 83086-5 - MG Order Info: 3 - TSH Order Info: 2275-4 - EMBER Performed By: #### L 500.4050, L501.3620, L501.9520, L503.6550, L501.5200 #### [facility] [address] [place], [address] Nucleated RBC (Bld) [#/Vol] 0 10*3/uL Normal 0-5 [facility] Comment on above: Order Comment: Order Date: 05/13/24 Order Info: 785-1 - CMP Order Info: 7-6 - CPK Order Info: [id number] - MG Order Info: 3015-3 - TSH Order Info: 2276-4 - EMBER Performed By: #### L 500.4050, L501.3620, L501.9520, L503.6550, L501.5200 #### [facility] [address] [place], [address] Platelet mean volume (Bld) [Entitic vol] 9.7 fL Normal 6.2-12.0 [facility] Comment on above: Order Comment: Order Date: 05/13/24 Order Info: 86-1 - CMP Order Info: 2157-6 - CPK Order Info: [id number] - MG Order Info: 3016-3 - TSH Order Info: 2276-4 - EMBER Performed By: #### L 500.4050, L501.3620, L501.9520, L503.6550, L501.5200 #### [facility] [address] [place], [address] Platelets (Bld) [#/Vol] 546 10*3/uL High 150-450 [facility] Comment on above: Order Comment: Order Date: 05/13/24 Order Info: 86-1 - CMP Order Info: 2157-6 - CPK Order Info: [id number] - MG Order Info: 3015-3 - TSH Order Info: 2275-4 - EMBER Performed By: #### L 500.4050, L501.3620, L501.9520, L503.6550, L501.5200 #### [facility] [address] [place], [address] RBC (Bld) [#/Vol] 4.58 10*6/uL Low 4.6-6.2 [facility] [facility] Comment on above: Order Comment: Order Date: 05/13/24 Order Info: 86-1 - CMP Order Info: 2157-6 - CPK Order Info: 85990-5 - MG Order Info: 301-3 - TSH Order Info: 2275-4 - EMBER Performed By: #### L 500.4050, L501.3620, L501.9520, L503.6550, L501.5200 #### [facility] [address] [place], [address] RDW SD 43.9 fl Normal 35.1-43.9 [facility] Comment on above: Order Comment: Order Date: 05/13/24 Order Info: 86-1 - CMP Order Info: 2157-6 - CPK Order Info: 59675-8 - MG Order Info: 3016-3 - TSH Order Info: 2276-4 - EMBER Performed By: #### L 500.4050, L501.3620, L501.9520, L503.6550, L501.5200 #### [facility] [address] [place], [address] WBC (Bld) [#/Vol] 14.9 10*3/uL High 4.4-11.0 [facility] Comment on above: Order Comment: Order Date: 05/13/24 Order Info: 0786-1 - CMP Order Info: 2157-6 - CPK Order Info: 51313-1 - MG Order Info: 3016-3 - TSH Order Info: 2276-02 - EMBER Performed By: #### L 500.4050, L501.3620, L501.9520, L503.6550, L501.5200 #### [facility] [address] [place], [address] Carbon dioxide measurementOr dered By: Jorge Alberto Durand on 12-19-2024 CO2 [Moles/Vol] 29.0 mmol/L 21.0-32.0 [facility] Carbon dioxide measurementOr dered By: Denise Reyes on 12-19-2024 CO2 [Moles/Vol] 27.0 mmol/L 21.0-32.0 [facility] Chloride measurementOrdered By: Jorge Alberto Durand on 12-19-2024 Chloride [Moles/Vol] 93 mmol/L Low 98-107 [facility] Chloride measurementOrdered By: Denise Reyes on 12-19-2024 Chloride [Moles/Vol] 90 mmol/L Low 98-107 [facility] Comprehensive Metabolic Prof ilon 12-19-2024 Albumin [Mass/Vol] 3.2 g/dL Normal 3.2-5.0 [facility] Comment on above: Performed By: #### L 501.9060 #### [facility] [address] [place], [address] Albumin/Globulin [Mass ratio] 0.7 {ratio} Low 0.9-2.4 [facility] Comment on above: Performed By: #### L 889.4142 #### [facility] [address] [place], [address] ALK P 977 U/L High 45-117 [facility] Comment on above: Performed By: #### L 987.1648 #### [facility] [address] [place], [address] ALT [Catalytic activity/Vol] 418 U/L High 16-61 [facility] Comment on above: Performed By: #### L 501.7693 #### [facility] [address] [place], [address] AST [Catalytic activity/Vol] 247 U/L High 15-37 [facility] Comment on above: Performed By: #### L 704.3694 #### [facility] [address] [place], [address] Bilirubin [Mass/Vol] 0.50 mg/dL Normal 0.20-1.00 [facility] Comment on above: Result Comment: For patients on eltrombopag therapy, use of Dimension [place] TBIL is not recommended. Performed By: #### L 458.2589 #### [facility] [address] [place], [address] BUN/CRE 33.6 RATIO High 10-20 [facility] Comment on above: Performed By: #### L 596.6682 #### [facility] [address] [place], [address] CA,Total 10.8 mg/dL High 8.5-10.1 [facility] Comment on above: Performed By: #### L 269.3538 #### [facility] [address] [place], [address] Chloride [Moles/Vol] 93 mmol/L Low 98-107 [facility] Comment on above: Performed By: #### L 739.9460 #### [facility] [address] [place], [address] CO2 [Moles/Vol] 29.0 mmol/L Normal 21.0-32.0 [facility] Comment on above: Performed By: #### L [id number] #### [facility] [address] [place], [address] Creatinine [Mass/Vol] 0.86 mg/dL Normal 0.70-1.30 [facility] Comment on above: Result Comment: The validity of the calculated GFR GFRAA in patients over 70 years has not been determined. Clinical correlation is essential. Performed By: #### L 269.9078 #### [facility] [address] [place], [address] ECRCL 115.54 ml/min Normal [facility] Comment on above: Performed By: #### L 189.9060 #### [facility] [address] [place], [address] EST GFR - AA 125 mL/min Normal >60 [facility] Comment on above: Result Comment: Afri can Japanese GFR Calc Performed By: #### L 384.4319 #### [facility] [address] [place], [address] GAP 6 Normal 5-15 [facility] Comment on above: Performed By: #### L [id number] #### [facility] [address] [place], [address] GFR/1.73 sq M.predicted among non-blacks MDRD (S/P/Bld) [Vol rate/Area] 103 mL/min/{1.73_m2} Normal >60 [facility] Comment on above: Result Comment: Non- GFR Calc Performed By: #### L [id number] #### [facility] [address] [place], [address] Globulin (S) [Mass/Vol] 4.4 g/dL High 2.2-4.2 [facility] Comment on above: Performed By: #### L 501.9060 #### [facility] [address] [place], [address] Glucose [Mass/Vol] 487 mg/dL Invalid Interpretation Code 74-106 [facility] Comment on above: Result Comment: Crit ical Result(s) Called at: 22:36:41 12/19/2024 by: WILLIAM GODINEZ TO SUKUMAR MATUTE. Results read back by same. Glucose result greater than or equal to 200 mg/dL suggests DIABETES MELLITUS per A.D.A. criteria. Performed By: #### L 501.9060 #### [facility] [address] [place], [address] Potassium [Moles/Vol] 4.5 mmol/L Normal 3.5-5.1 [facility] Comment on above: Performed By: #### L 501.9060 #### [facility] [address] [place], [address] Sodium [Moles/Vol] 128 mmol/L Low 136-145 [facility] Comment on above: Performed By: #### L 501.9060 #### [facility] [address] [place], [address] T PROT 7.6 g/dL Normal 6.4-8.2 [facility] Comment on above: Performed By: #### L 501.9060 #### [facility] [address] [place], [address] Urea nitrogen [Mass/Vol] 29 mg/dL High 7-18 [facility] Comment on above: Performed By: #### L 501.9060 #### [facility] [address] [place], [address] Albumin [Mass/Vol] 3.4 g/dL Normal 3.2-5.0 [facility] Comment on above: Order Comment: Order Date: 05/13/24 Order Info: 86-1 - CMP Order Info: 2157-6 - CPK Order Info: 58330-9 - MG Order Info: 3015-3 - TSH Order Info: 4 - EMBER Performed By: #### L 500.4050, L501.3620, L501.9520, L503.6550, L501.5200 #### [facility] [address] [place], [address] Albumin/Globulin [Mass ratio] 0.7 {ratio} Low 0.9-2.4 [facility] Comment on above: Order Comment: Order Date: 05/13/24 Order Info: 86-1 - CMP Order Info: 2157-6 - CPK Order Info: 37103-6 - MG Order Info: 3 - TSH Order Info: 4 - EMBER Performed By: #### L 500.4050, L501.3620, L501.9520, L503.6550, L501.5200 #### [facility] [address] [place], [address] ALK P 1080 U/L High 45-117 [facility] Comment on above: Order Comment: Order Date: 05/13/24 Order Info: 86-1 - CMP Order Info: 2157-6 - CPK Order Info: 09456-3 - MG Order Info: 3 - TSH Order Info: 4 - EMBER Performed By: #### L 500.4050, L501.3620, L501.9520, L503.6550, L501.5200 #### [facility] [address] [place], [address] ALT [Catalytic activity/Vol] 436 U/L High 16-61 [facility] Comment on above: Order Comment: Order Date: 05/13/24 Order Info: 86-1 - CMP Order Info: 2157-6 - CPK Order Info: 63203-3 - MG Order Info: 3 - TSH Order Info: 2276-4 - EMBER Performed By: #### L 500.4050, L501.3620, L501.9520, L503.6550, L501.5200 #### [facility] [address] [place], [address] AST [Catalytic activity/Vol] 274 U/L High 15-37 [facility] Comment on above: Order Comment: Order Date: 05/13/24 Order Info: 0786-1 - CMP Order Info: 2157-6 - CPK Order Info: 10674-2 - MG Order Info: 3 - TSH Order Info: 2276-02 - EMBER Performed By: #### L 500.4050, L501.3620, L501.9520, L503.6550, L501.5200 #### [facility] [address] [place], [place], [address] Bilirubin [Mass/Vol] 0.60 mg/dL Normal 0.20-1.00 [facility] Comment on above: Order Comment: Order Date: 05/13/24 Order Info: 86-1 - CMP Order Info: 2157-6 - CPK Order Info: 91503-7 - MG Order Info: 3016-01 - TSH Order Info: 2276-02 - EMBER Result Comment: For patients on eltrombopag therapy, use of Dimension [place] TBIL is not recommended. Performed By: #### L 500.4050, L501.3620, L501.9520, L503.6550, L501.5200 #### [facility] [address] [place], [address] BUN/CRE 29.2 RATIO High 10-20 [facility] Comment on above: Order Comment: Order Date: 05/13/24 Order Info: 0786-1 - CMP Order Info: 2157-6 - CPK Order Info: 28268-5 - MG Order Info: 3016-3 - TSH Order Info: 2276-02 - EMBER Performed By: #### L 500.4050, L501.3620, L501.9520, L503.6550, L501.5200 #### [facility] [address] [place], [address] CA,Total 11.5 mg/dL High 8.5-10.1 [facility] Comment on above: Order Comment: Order Date: 05/13/24 Order Info: 0786-1 - CMP Order Info: 2157-6 - CPK Order Info: 22848-9 - MG Order Info: 3016-3 - TSH Order Info: 2276-4 - EMBER Performed By: #### L 500.4050, L501.3620, L501.9520, L503.6550, L501.5200 #### [facility] [address] [place], [address] Chloride [Moles/Vol] 90 mmol/L Low 98-107 [facility] Comment on above: Order Comment: Order Date: 05/13/24 Order Info: 86-1 - CMP Order Info: 2157-6 - CPK Order Info: 55736-4 - MG Order Info: 3016-3 - TSH Order Info: 2276-4 - EMBER Performed By: #### L 500.4050, L501.3620, L501.9520, L503.6550, L501.5200 #### [facility] [address] [place], [address] CO2 [Moles/Vol] 27.0 mmol/L Normal 21.0-32.0 [facility] Comment on above: Order Comment: Order Date: 05/13/24 Order Info: 0786-1 - CMP Order Info: 2157-6 - CPK Order Info: 33172-3 - MG Order Info: 3016-3 - TSH Order Info: 2276-4 - EMBER Performed By: #### L 500.4050, L501.3620, L501.9520, L503.6550, L501.5200 #### [facility] [address] [place], [address] Creatinine [Mass/Vol] 0.99 mg/dL Normal 0.70-1.30 [facility] Comment on above: Order Comment: Order Date: 05/13/24 Order Info: 86-1 - CMP Order Info: 7-6 - CPK Order Info: 22908-0 - MG Order Info: 301-3 - TSH Order Info: 2276-02 - EMBER Result Comment: The validity of the calculated GFR GFRAA in patients over 70 years has not been determined. Clinical correlation is essential. Performed By: #### L 500.4050, L501.3620, L501.9520, L503.6550, L501.5200 #### [facility] [address] [place], [address] EST GFR - AA 106 mL/min Normal >60 [facility] Comment on above: Order Comment: Order Date: 05/13/24 Order Info: 785-1 - CMP Order Info: 7-6 - CPK Order Info: 89306-5 - MG Order Info: 3 - TSH Order Info: 4 - EMBER Result Comment: Afri can Japanese GFR Calc Performed By: #### L 500.4050, L501.3620, L501.9520, L503.6550, L501.5200 #### [facility] [address] [place], [address] GAP 6 Normal 5-15 [facility] Comment on above: Order Comment: Order Date: 05/13/24 Order Info: 785-1 - CMP Order Info: 7-6 - CPK Order Info: 60938-3 - MG Order Info: 63 - TSH Order Info: 4 - EMBER Performed By: #### L 500.4050, L501.3620, L501.9520, L503.6550, L501.5200 #### [facility] [address] [place], [address] GFR/1.73 sq M.predicted among non-blacks MDRD (S/P/Bld) [Vol rate/Area] 88 mL/min/{1.73_m2} Normal >60 [facility] Comment on above: Order Comment: Order Date: 05/13/24 Order Info: 86-1 - CMP Order Info: 2157-6 - CPK Order Info: 39380-0 - MG Order Info: 3015-3 - TSH Order Info: 2276-4 - EMBER Result Comment: Non- GFR Calc Performed By: #### L 500.4050, L501.3620, L501.9520, L503.6550, L501.5200 #### [facility] [address] [place], [address] Globulin (S) [Mass/Vol] 4.6 g/dL High 2.2-4.2 [facility] Comment on above: Order Comment: Order Date: 05/13/24 Order Info: 785-1 - CMP Order Info: 7-6 - CPK Order Info: 76546-8 - MG Order Info: 3 - TSH Order Info: 4 - EMBER Performed By: #### L 500.4050, L501.3620, L501.9520, L503.6550, L501.5200 #### [facility] [address] [place], [address] Glucose [Mass/Vol] 525 mg/dL Invalid Interpretation Code 74-106 [facility] Comment on above: Order Comment: Order Date: 05/13/24 Order Info: 785-1 - CMP Order Info: 2157-6 - CPK Order Info: 61550-4 - MG Order Info: 301-3 - TSH Order Info: 227-4 - EMBER Result Comment: Crit ical Result(s) Called at: 20:01:48 12/19/2024 by: WILLIAM GODINEZ TO DR. ANA DAO. Results read back by same. Glucose result greater than or equal to 200 mg/dL suggests DIABETES MELLITUS per A.D.A. criteria. Performed By: #### L 500.4050, L501.3620, L501.9520, L503.6550, L501.5200 #### [facility] [address] [place], [address] Potassium [Moles/Vol] 5.2 mmol/L High 3.5-5.1 [facility] Comment on above: Order Comment: Order Date: 05/13/24 Order Info: 0786-1 - CMP Order Info: 2157-6 - CPK Order Info: 48834-5 - MG Order Info: 3016-3 - TSH Order Info: 2276-4 - EMBER Performed By: #### L 500.4050, L501.3620, L501.9520, L503.6550, L501.5200 #### [facility] [address] [place], [address] Sodium [Moles/Vol] 124 mmol/L Low 136-145 [facility] Comment on above: Order Comment: Order Date: 05/13/24 Order Info: 785-1 - CMP Order Info: 2157-6 - CPK Order Info: 26969-0 - MG Order Info: 3016-3 - TSH Order Info: 2276-4 - EMBER Performed By: #### L 500.4050, L501.3620, L501.9520, L503.6550, L501.5200 #### [facility] [address] [place], [address] T PROT 8.0 g/dL Normal 6.4-8.2 [facility] Comment on above: Order Comment: Order Date: 05/13/24 Order Info: 0786-1 - CMP Order Info: 2157-6 - CPK Order Info: 43829-6 - MG Order Info: 3016-3 - TSH Order Info: 2276-4 - EMBER Performed By: #### L 500.4050, L501.3620, L501.9520, L503.6550, L501.5200 #### [facility] [address] [place], [address] Urea nitrogen [Mass/Vol] 29 mg/dL High 7-18 [facility] Comment on above: Order Comment: Order Date: 05/13/24 Order Info: 0786-1 - CMP Order Info: 2157-6 - CPK Order Info: 73275-8 - MG Order Info: 3016-3 - TSH Order Info: 2276-4 - EMBER Performed By: #### L 500.4050, L501.3620, L501.9520, L503.6550, L501.5200 #### [facility] [address] [place], [address] Direct serum free thyroxine (FT4) measurementOrdered By: Denise Reyes on 12-19-2024 Free T4 [Mass/Vol] 1.06 ng/dL 0.76-1.46 [facility] Eosinophil percentageOrdered By: Denise Reyes on 12-19-2024 Eosinophils/100 WBC (Bld) 3.9 % 0-5 [facility] Erythrocyte distribution wid th ratioOrdered By: Denise Reyes on 12-19-2024 Erythrocyte distribution width (RBC) [Ratio] 12.2 % 11.6-14.6 [facility] Erythrocyte distribution wid th standard deviationOrdered By: Denise Reyes on 12-19-2024 Erythrocyte distribution width (RBC) [Ratio] 43.9 fl 35.1-43.9 [facility] Gallbladderon 12-19-2024 Gallbladder [facility] [address] [place], [place] [address] Gallbladder MR#: [id number] Acct: [id number] Name: DANNY HEATH Rep #: [id number] : 1980 M 44 From: Laura Jaramillo MD PCP: Dr. Denise Reyes MD Status: REG ER Study: Gallbladder Date of Exam: 12/19/24 Exam# [id number] Ordering Dr: Jorge Alberto Durand DO PROCEDURE: GALLBLADDER REASON FOR EXAM: Cholelithiasis COMPARISON: 12/19/2024 FINDINGS: Liver: Grossly normal size and echotexture, measuring 18.3 cm. Patent portal vein with hepatopetal flow. Gallbladder: A gallstone is noted in the gallbladder lumen. Sonographic Mcnair's sign is negative. Common bile duct: Normal measuring 3.6 mm. Pancreas: Visualized portions are sonographically unremarkable. Visualized portions of the right kidney are unremarkable. No right upper quadrant ascites. US/Gallbladder IMPRESSION: 1. Cholelithiasis. 2. No acute abnormality. [facility] CC: Dr. Denise Reyes MD; Jorge Alberto Durand DO Sausage Inspector: Signed Normal [facility] Glomerular filtration rate ( GFR) estimationOrdered By: Jorge Alberto Durand on 12-19-2024 GFR/1.73 sq M.predicted among non-blacks MDRD (S/P/Bld) [Vol rate/Area] 103 mL/min/{1.73_m2} >60 [facility] Comment on above: Non- GFR Calc Glomerular filtration rate ( GFR) estimationOrdered By: Denise Reyes on 12-19-2024 GFR/1.73 sq M.predicted among non-blacks MDRD (S/P/Bld) [Vol rate/Area] 88 mL/min/{1.73_m2} >60 [facility] Comment on above: Non- GFR Calc Glucose measurementOrdered B y: Jorge Alberto Durand on 12-19-2024 Glucose [Mass/Vol] 487 mg/dL High 74-106 [facility] Comment on above: Critical Result(s) C alled at: 22:36:41 12/19/2024 by: WILLIAM GODINEZ TO SUKUMAR MATUTE. Results read back by same.Glucose result greater than or equal to 200 mg/dLsuggests DIABETES MELLITUS per A.D.A. criteria. Glucose measurementOrdered B y: Denise Reyes on 12-19-2024 Glucose [Mass/Vol] 525 mg/dL High 74-106 [facility] Comment on above: Critical Result(s) C alled at: 20:01:48 12/19/2024 by: WILLIAM GODINEZ TO DR. ANA DAO. Results read back by same.Glucose result greater than or equal to 200 mg/dLsuggests DIABETES MELLITUS per A.D.A. criteria. Hematocrit Auto (Bld) [Volum e fraction]Ordered By: Denise Reyes on 12-19-2024 Hematocrit (Bld) [Volume fraction] 44.6 % 40-54 [facility] Hemoglobin A1con 12-19-2024 HbA1c (Bld) [Mass fraction] 10.2 % High 3.8-5.6 [facility] Comment on above: Order Comment: Order Date: 05/13/24 Order Info: 0786-1 - CMP Order Info: 2157-6 - CPK Order Info: 81891-5 - MG Order Info: 3016-3 - TSH Order Info: 2276-4 - EMBER Result Comment: Norm al < 5.7 % Prediabetic 5.7 - 6.4 % Diabetic >or= 6.5 % Please note range changes. Performed By: #### L 500.4050, L501.3620, L501.9520, L503.6550, L501.5200 #### [facility] [address] [place], [address] Hemoglobin A1c percentageOrd ered By: Denise Reyes on 12-19-2024 HbA1c (Bld) [Mass fraction] 10.2 % High 3.8-5.6 [facility] Comment on above: Normal < 5.7 % Predi abetic 5.7 - 6.4 % Diabetic >or= 6.5 % Please note range changes. Hemoglobin measurementOrdere d By: Denise Reyes on 12-19-2024 Hemoglobin (Bld) [Mass/Vol] 14.6 g/dL 13.0-16.5 [facility] High density lipoprotein (HD L) measurementOrdered By: Denise Reyes on 12-19-2024 Cholesterol in HDL [Mass/Vol] 64 mg/dL >40 [facility] Comment on above: The drugs N-Acetylcy steine and Metamizole may falsely depress this assay. Reference Range HDL <40 mg/dL Low HDL Cholesterol HDL >or= 60 mg/dL High HDL Cholesterol Immature granulocytes/100 WB C Auto (Bld)Ordered By: Denise Reyes on 12-19-2024 Immature granulocytes/100 WBC (Bld) 0.400 % 0.0-0.9 [facility] Comment on above: IG% - Immature Granu locytes (promyelocytes, myelocytes and metamyelocytes) > 1% indicates that a LEFT SHIFT is Present. Laboratory - Chemistry and C hemistry - challengeOrdered By: Jorge Alberto Durand on 12-19-2024 AST [Catalytic activity/Vol] 247 U/L High 15-37 [facility] - Chemistry and C hemistry - challengeOrdered By: Denise Reyes on 12-19-2024 AST [Catalytic activity/Vol] 274 U/L High 15-37 [facility] Lipaseon 12-19-2024 Lipase [Catalytic activity/Vol] 88 U/L Normal 73-393 [facility] Comment on above: Performed By: #### L 500.4050, L501.3620, L501.9520, L503.6550, L501.5200 #### [facility] [address] [place], [address] Lipase measurementOrdered By : Jorge Alberto Durand on 12-19-2024 Lipase [Catalytic activity/Vol] 88 U/L 73-393 [facility] Lipid Profileon 12-19-2024 Cholesterol [Mass/Vol] 220 mg/dL High 200 [facility] Comment on above: Order Comment: Order Date: 05/13/24 Order Info: 0786-1 - CMP Order Info: 2157-6 - CPK Order Info: 79162-7 - MG Order Info: 3016-3 - TSH Order Info: 2275-4 - EMBER Result Comment: <200 mg/dL Desirable 200-240 mg/dL Borderline >240 mg/dL High Risk Performed By: #### L 500.4050, L501.3620, L501.9520, L503.6550, L501.5200 #### [facility] [address] [place], [address] Cholesterol in HDL [Mass/Vol] 64 mg/dL Normal [facility] Comment on above: Order Comment: Order Date: 05/13/24 Order Info: 0786-1 - CMP Order Info: 2157-6 - CPK Order Info: 21780-1 - MG Order Info: 3016-3 - TSH Order Info: 2276-4 - EMBER Result Comment: The drugs N-Acetylcysteine and Metamizole may falsely depress this assay. Reference Range HDL <40 mg/dL Low HDL Cholesterol HDL >or= 60 mg/dL High HDL Cholesterol Performed By: #### L 500.4050, L501.3620, L501.9520, L503.6550, L501.5200 #### [facility] [address] [place], [place], [address] LDL TNP Normal 0-130 [facility] Comment on above: Order Comment: Order Date: 05/13/24 Order Info: 0786-1 - CMP Order Info: 2157-6 - CPK Order Info: 08876-0 - MG Order Info: 3016-3 - TSH Order Info: 2276-02 - EMBER Performed By: #### L 500.4050, L501.3620, L501.9520, L503.6550, L501.5200 #### [facility] [address] [place], [place], [address] Triglyceride [Mass/Vol] 481 mg/dL High [facility] Comment on above: Order Comment: Order Date: 05/13/24 Order Info: 86-1 - CMP Order Info: 2157-6 - CPK Order Info: 15162-0 - MG Order Info: 3015-3 - TSH Order Info: 4 - EMBER Result Comment: The drugs N-Acetylcysteine and Metamizole may falsely depress this assay. TRIGLYCERIDE IS GREATER THAN 400 mg/dL. LDL RESULT IS INVALID AND WILL NOT BE REPORTED. Serum Triglycerides Reference Interval Normal <150 mg/dL Borderline high 150 - 199 mg/dL High 200 - 499 mg/dL Very High > or = 500 mg/dL Performed By: #### L 500.4050, L501.3620, L501.9520, L503.6550, L501.5200 #### [facility] [address] [place], [address] VLDL TNP Normal 5-40 [facility] Comment on above: Order Comment: Order Date: 05/13/24 Order Info: 0786-1 - CMP Order Info: 2157-6 - CPK Order Info: 06691-5 - MG Order Info: 3016-3 - TSH Order Info: 2276-4 - EMBER Performed By: #### L 500.4050, L501.3620, L501.9520, L503.6550, L501.5200 #### [facility] [address] [place], [place], [address] Lithiumon 12-19-2024 LI 1.00 mmol/L Normal 0.60-1.20 [facility] Comment on above: Result Comment: Mode rate Hemolysis, Result may be falsely increased. Performed By: #### L 501.9005 #### [facility] [address] [place], [place], [address] Low density lipoprotein (LDL ) cholesterol measurementOrdered By: Denise Reyes on 12-19-2024 Low density lipoprotein (LDL) cholesterol measurement TNP [facility] Comment on above: Test not performed MCV (mean corpuscular volume ) determinationOrdered By: Denise Reyes on 12-19-2024 MCV (RBC) [Entitic vol] 97.4 fL High 80-94 [facility] Mean corpuscular hemoglobin (MCH) determinationOrdered By: Denise Reyes on 12-19-2024 MCH (RBC) [Entitic mass] 31.9 pg 27.0-32.0 [facility] Mean corpuscular hemoglobin concentration (MCHC) determinationOrdered By: Denise Reyes on 12-19-2024 MCHC (RBC) [Mass/Vol] 32.7 g/dL 32-36 [facility] Mean platelet volume determi nationOrdered By: Denise Reyes on 12-19-2024 Platelet mean volume (Bld) [Entitic vol] 9.7 fL 6.2-12.0 [facility] Monocyte percentageOrdered B y: Denise Reyes on 12-19-2024 Monocytes/100 WBC (Bld) 7.3 % 0-10 [facility] Neutrophil percentageOrdered By: Denise Reyes on 12-19-2024 Neutrophils/100 WBC (Bld) 77.2 % High 47-70 [facility] [facility] Panel InformationOrdered By: Jorge Alberto Durand on 12-19-2024 Hepatitis C Antibody Comment Comment . [facility] Comment on above: Not infected with HC V unless early or acute infection issuspected (which may be delayed in an immunocompromisedindividual), or other evidence exists to indicate HCVinfection.Performed at: [email or web address] [id number] Director: Can Calvo PhD, Phone: [phone] Nucleated red blood cell per centageOrdered By: Denise Reyes on 12-19-2024 Nucleated RBC/100 WBC (Bld) [Ratio] 0 % 0-5 [facility] Platelet countOrdered By: Elaine Reyes on 12-19-2024 Platelets (Bld) [#/Vol] 546 10*3/uL High 150-450 [facility] Potassium measurementOrdered By: Jorge Alberto Druand on 12-19-2024 Potassium [Moles/Vol] 4.5 mmol/L 3.5-5.1 [facility] Potassium measurementOrdered By: Denise Reyes on 12-19-2024 Potassium [Moles/Vol] 5.2 mmol/L High 3.5-5.1 [facility] RBC Auto (Bld) [#/Vol]Ordere d By: Denise Reyes on 12-19-2024 RBC (Bld) [#/Vol] 4.58 10*6/uL Low 4.6-6.2 [facility] Serum anion gap measurementO rdered By: Jorge Alberto Durand on 12-19-2024 Anion gap [Moles/Vol] 6 mmol/L 03-19 [facility] Serum anion gap measurementO rdered By: Denise Reyes on 12-19-2024 Anion gap [Moles/Vol] 6 mmol/L - [facility] Serum globulin measurementOr dered By: Jorge Alberto Durand on 12-19-2024 Globulin (S) [Mass/Vol] 4.4 g/dL High 2.2-4.2 [facility] Serum globulin measurementOr dered By: Denise Reyes on 12-19-2024 Globulin (S) [Mass/Vol] 4.6 g/dL High 2.2-4.2 [facility] Serum or plasma acetaminophe n measurement (mass/volume)Ordered By: Jorge Alberto Durand on 12-19-2024 Acetaminophen [Mass/Vol] ug/mL Low 10.0-30.0 [facility] Serum or plasma alanine lindsey otransferase (ALT) measurementOrdered By: Jorge Alberto Durand on 12-19-2024 ALT [Catalytic activity/Vol] 418 U/L High 16- [facility] Serum or plasma alanine lindsey otransferase (ALT) measurementOrdered By: Denise Reyes on 12-19-2024 ALT [Catalytic activity/Vol] 436 U/L High 16-61 [facility] Serum or plasma albumin kain urement (mass/volume)Ordered By: Jorge Alberto Durand on 12-19-2024 Albumin [Mass/Vol] 3.2 g/dL 3.2-5.0 [facility] Serum or plasma albumin kain urement (mass/volume)Ordered By: Denise Reyes on 12-19-2024 Albumin [Mass/Vol] 3.4 g/dL 3.2-5.0 [facility] Serum or plasma alkaline buffy sphatase measurementOrdered By: Jorge Alberto Durand on 12-19-2024 ALP [Catalytic activity/Vol] 977 U/L High 45-117 [facility] Serum or plasma alkaline buffy sphatase measurementOrdered By: Denise Reyes on 12-19-2024 ALP [Catalytic activity/Vol] 1080 U/L High 45-117 [facility] Serum or plasma calcium kain urement (mass/volume)Ordered By: Jorge Alberto Durand on 12-19-2024 Calcium [Mass/Vol] 10.8 mg/dL High 8.5-10.1 [facility] Serum or plasma calcium kain urement (mass/volume)Ordered By: Denise Reyes on 12-19-2024 Calcium [Mass/Vol] 11.5 mg/dL High 8.5-10.1 [facility] Serum or plasma cholesterol measurement (mass/volume)Ordered By: Denise Reyes on 12-19-2024 Cholesterol [Mass/Vol] 220 mg/dL High <200 [facility] Comment on above: <200 mg/dL Desirable 200-240 mg/dL Borderline >240 mg/dL High Risk Serum or plasma creatinine m easurement (mass/volume)Ordered By: Jorge Alberto Durand on 12-19-2024 Creatinine [Mass/Vol] 0.86 mg/dL 0.70-1.30 [facility] Comment on above: The validity of the calculated GFR & GFRAA in patients over 70 years has not been determined. Clinical correlation is essential. Serum or plasma creatinine m easurement (mass/volume)Ordered By: Denise Reyes on 12-19-2024 Creatinine [Mass/Vol] 0.99 mg/dL 0.70-1.30 [facility] Comment on above: The validity of the calculated GFR & GFRAA in patients over 70 years has not been determined. Clinical correlation is essential. Serum or plasma hepatitis B virus surface antigen detection by immunoassayOrdered By: Jorge Alberto Durand on 12-19-2024 HBV surface Ag IA Ql Negative Negative [facility] Serum or plasma thyroid stim ulating hormone (TSH) measurement (units/volume)Ordered By: Denise Reyes on 12-19-2024 TSH Qn 2.940 uIU/mL 0.358-3.740 [facility] Serum or plasma urea nitroge n measurement (mass/volume)Ordered By: Jorge Alberto Durand on 12-19-2024 Urea nitrogen [Mass/Vol] 29 mg/dL High 7-18 [facility] Serum or plasma urea nitroge n measurement (mass/volume)Ordered By: Denise Reyes on 12-19-2024 Urea nitrogen [Mass/Vol] 29 mg/dL High 7-18 [facility] Sodium levelOrdered By: Aleksandar Durand on 12-19-2024 Sodium [Moles/Vol] 128 mmol/L Low 136-145 [facility] Sodium levelOrdered By: Denise Reyes on 12-19-2024 Sodium [Moles/Vol] 124 mmol/L Low 136-145 [facility] T4 Free Directon 12-19-2024 T4 FREE DIRECT 1.06 ng/dL Normal 0.76-1.46 [facility] Comment on above: Order Comment: Order Date: 05/13/24 Order Info: [id number] - CMP Order Info: 2157-6 - CPK Order Info: [id number] - MG Order Info: 3016-3 - TSH Order Info: 2276-02 - EMBER Performed By: #### L 500.4050, L501.3620, L501.9520, L503.6550, L501.5200 #### [facility] [address] [place], [place], [address] Thyroid Stim Hormone (TSH)on 12-19-2024 TSH 2.940 uIU/mL Normal 0.358-3.740 [facility] Comment on above: Order Comment: Order Date: 05/13/24 Order Info: [id number] - CMP Order Info: 2157-6 - CPK Order Info: [id number] - MG Order Info: 3016-3 - TSH Order Info: 2276-02 - EMBER Performed By: #### L 500.4050, L501.3620, L501.9520, L503.6550, L501.5200 #### [facility] [address] [place], [place], [address] Total proteinOrdered By: Omar Durand on 12-19-2024 Protein [Mass/Vol] 7.6 g/dL 6.4-8.2 [facility] Total proteinOrdered By: Mina Reyes on 12-19-2024 Protein [Mass/Vol] 8.0 g/dL 6.4-8.2 [facility] Triglycerides measurementOrd ered By: Denise Reyes on 12-19-2024 Triglyceride [Mass/Vol] 481 mg/dL High <199 [facility] Comment on above: The drugs N-Acetylcy steine and Metamizole may falsely depress this assay. TRIGLYCERIDE IS GREATER THAN 400 mg/dL. LDL RESULT IS INVALID AND WILL NOT BE REPORTED.Serum Triglycerides Reference Interval Normal <150 mg/dL Borderline high 150 - 199 mg/dL High 200 - 499 mg/dL Very High > or = 500 mg/dL White blood cell (WBC) count Ordered By: Denise Reyes on 12-19-2024 WBC (Bld) [#/Vol] 14.9 10*3/uL High 4.4-11.0 [facility] Gastric Emptying Studyon Gastric Emptying Study [facility] Imaging Services [address] [place] [address] Gastric Emptying Study MR#: [id number] Acct: [id number] Name: DANNY HEATH Rep #: [id number] : 1980 M 44 From: Ezequiel Hawley PCP: Dr. Denise Reyes MD Status: REG CLI Study: Gastric Emptying Study Date of Exam: 11/13/24 Exam# [id number] Ordering Dr: Denise Reyes MD [id number] CLINICAL: 44-year-old diabetic male with history of early satiety. SEMI-SOLID PHASE 99m Tc SULFUR COLLOID GASTRIC EMPTYING STUDY COMPARISON: None available FINDINGS: The patient was administered 1.2 mCi of 99m Tc sulfur colloid mixed with oatmeal and consumed per os. Image acquisitions in the anterior-posterior projections were obtained for 60 minutes. There is prompt visualization of the stomach. There is no gastroesophageal reflux identified. The T ? linear fit was calculated to be 51.56 minutes, (Normal: 12-56 minutes). NM/Gastric Emptying Study IMPRESSION: 1. NORMAL 99m Tc sulfur colloid semi-solid phase (oatmeal) gastric emptying imaging examination. A. There is upper limits of normal and preserved semi-solid phase gastric emptying compared to normal controls. (Ginny et al, J Nucl Med Tech 38: 186, 2010). Electronically Signed: Ezequiel King DO at 9:18 EST Reading Location ID and State: [facility] / [place] Tel , Service support , CC: Dr. Denise Reyes MD Sausage Inspector: Signed Senait [facility] [id number] 10-13-2024 [id number] HNO ID: [id number] Author: NEHA DRIVER PT Service: ? Author Type: Physical Therapist Type: [id number] Filed: 10/13/2024 10:44 Note Text: [facility] Physical Therapy Plan of Care Certification Patient Name: Danny Heath : 1980 [facility] #: [id number] Date: 10/13/2024 To: Denise Reyes MD From Therapist: Neha Driver PT RE: Patient Certification/ Recertification Your review, approval and electronic signature are required in order to comply with Payor: MEDICARE / Plan: MEDICARE A AND B / Product Type: Medicare / regulations. The identified Physical Therapy PLAN OF CARE for the patient is as follows: R29.898 Weakness of left lower extremity (primary encounter diagnosis) PLAN OF CARE UPDATE: Assessment: Danny Heath is discontinued from Physical Therapy services due to goal achievement and maximal benefit.. Patient was seen for 10 visits from Start of Care Date: 07/30/24 to 10/13/2024 and treatment included: Therapeutic exercise, Neuromuscular re-education, Therapeutic activities, Self-long-term management, and Gait training. Goals for Episode of Care: established 07/30/24 Goals updated on 09/01/2024. Goals updated on 10/13/2024. Monona in home exercise program.-- MET Patient will decrease pain to 1-2/10 with functional activities to allow patient to improve ambulation, transfers, and standing tolerance for ADLs. -- MET Patient will increase active ROM of bilateral knee extension to 0 degrees extension to allow pt to to improve postural alignment, to improve performance of ADLs, to improve gait mechanics / gait pattern , and to decrease falls risks . -- PARTIALLY MET Patient will demonstrate increase in Lquadriceps strength to 4/5 during manual muscle testing in order to improve function for prior functional tasks. -- PARTIALLY MET Normal gait. -- PARTIALLY MET, requires cues to reduce trunk sway Reciprocal stair negotiation. -- MET Patient Goals: walking up and down stairs with reduced L knee pain. -- MET For further details regarding this patient refer to the Physical Therapy electronically documented visit dated 10/13/2024. Provider Attestation I have reviewed the treatment plan for Danny Heath, [facility]# [id number] for the period of 10/13/24 -- 10/13/24, established on 10/13/2024. Signature certifies the need for therapy services. Normal [facility] CNTHERAPYon 10-13-2024 CNTHERAPY OT/PT/Speech Visit (PTWS) KUMARDANNY ([id number]) 1980 M Date Time Provider Department 10/13/24 10:15 AM NEHA DRIVER Date Time Provider Department [place] 10/13/2024 10:15 AM [id number] DRIVER [facility] Reason for Visit: PT Discharge [752] Primary Visit Diagnosis:Weakness of left lower extremity [R29.898] Allergies As of Date: 10/13/2024 (Not on File) Date Reviewed: Never Reviewed Letter Text Normal [facility] Hemoglobin A1con 10-10-2024 HbA1c (Bld) [Mass fraction] 9.0 % High 3.8-5.6 [facility] Comment on above: Order Comment: Order Date: 10/10/24 Order Info: 4548-4 - A1C Result Comment: Norm al < 5.7 % Prediabetic 5.7 - 6.4 % Diabetic >or= 6.5 % Please note range changes. Performed By: #### L 501.9985, L506.0400 #### [facility] [address] [place], [place], [address] T4 Free Directon 10-10-2024 T4 FREE DIRECT 0.97 ng/dL Normal 0.76-1.46 [facility] Comment on above: Order Comment: Order Date: 10/10/24 Order Info: 3024-7 - T4F TODAYS LABS ONLY PER PT Performed By: #### L 501.9985, L506.0400 #### [facility] [address] [place], [place], [address] CNTHERAPYon 10-06-2024 CNTHERAPY OT/PT/Speech Visit (PTWS) DANNY HEATH ([id number]) 1980 M Date Time Provider Department 10/06/24 10:15 AM NEHA DRIVER Date Time Provider Department Center 10/06/2024 10:15 AM [id number] SINGH Reason for Visit: Physical Therapy [503] Primary Visit Diagnosis:Weakness of left lower extremity [R29.898] Allergies As of Date: 10/06/2024 (Not on File) Date Reviewed: Never Reviewed Normal [facility] CNTHERAPYon 2024 CNTHERAPY OT/PT/Speech Visit (PTWS) DANNY HEATH ([id number]) 1980 M Date Time Provider Department 09/29/24 11:00 AM HANNAH LEGER Date Time Provider Department Center 2024 11:00 AM [id number] BENNETT Reason for Visit: Physical Therapy [503] Primary Visit Diagnosis:Weakness of left lower extremity [R29.898] Allergies As of Date: 2024 (Not on File) Date Reviewed: Never Reviewed Normal [facility] CNTHERAPYon 09-22-2024 CNTHERAPY OT/PT/Speech Visit (PTWS) DANNY HEATH ([id number]) 1980 M Date Time Provider Department 09/22/24 11:15 AM SEBASTIAN MARROQUIN Date Time Provider Department Center 09/22/2024 11:15 AM [id number] HERNÁNDEZ Reason for Visit: Physical Therapy [503] Primary Visit Diagnosis:Weakness of left lower extremity [R29.898] Allergies As of Date: 09/22/2024 (Not on File) Date Reviewed: Never Reviewed [facility] CNTHERAPYon 09-15-2024 CNTHERAPY OT/PT/Speech Visit (PTWS) DANNY HEATH ([id number]) 1980 M Date Time Provider Department 09/15/24 11:15 AM SEBASTIAN MARROQUIN Date Time Provider Department Center 09/15/2024 11:15 AM [id number] HERNÁNDEZ Reason for Visit: Physical Therapy [503] Primary Visit Diagnosis:Weakness of left lower extremity [R29.898] Allergies As of Date: 09/15/2024 (Not on File) Date Reviewed: Never Reviewed Trust Manager: Therapy (PT/OT/Speech/Resp) ID: [id number] 09/15/2024 11:46 AM Author: SEBASTIAN MARROQUIN Signed by SEBASTIAN MARROQUIN PT, DPT on 09/15/2024 at 11:46 AM Document text: Program_ID:[id number] Access Code: [email or web address] URL: [email or web address] Date: 09-15-2024 Prepared By: Neha Driver Program Notes Exercises - Lateral Step Up with Unilateral Counter Support - 1 x daily - 7 x weekly - 2 sets - 15 reps - Forward Step Up with Unilateral Counter Support - 1 x daily - 7 x weekly - 2 sets - 15 reps - Seated Hamstring Stretch - 2-3 x daily - 7 x weekly - 1 sets - 3 reps - Seated Hamstring Stretch - 2-3 x daily - 7 x weekly - 1 sets - 3 reps - Standing Hip Abduction with Counter Support - 1 x daily - 7 x weekly - 2 sets - 15-20 reps - Supine Active Straight Leg Raise - 1 x daily - 7 x weekly - 3 sets - 10 reps -------- Normal [facility] THERAPY NTon 09-15-2024 THERAPY NT HNO ID: [id number] Author: SEBASTIAN MARROQUIN, PT, DPT Service: ? Author Type: Physical Therapist Type: Therapy (PT/OT/Speech/Resp) Filed: 09/15/2024 11:46 Note Text: Program_ID:[id number] Access Code: [email or web address] URL: [email or web address] Date: 09-15-2024 Prepared By: Neha Driver Program Notes Exercises - Lateral Step Up with Unilateral Counter Support - 1 x daily - 7 x weekly - 2 sets - 15 reps - Forward Step Up with Unilateral Counter Support - 1 x daily - 7 x weekly - 2 sets - 15 reps - Seated Hamstring Stretch - 2-3 x daily - 7 x weekly - 1 sets - 3 reps - Seated Hamstring Stretch - 2-3 x daily - 7 x weekly - 1 sets - 3 reps - Standing Hip Abduction with Counter Support - 1 x daily - 7 x weekly - 2 sets - 15-20 reps - Supine Active Straight Leg Raise - 1 x daily - 7 x weekly - 3 sets - 10 reps Normal [facility] CNTHERAPYon 09-08-2024 CNTHERAPY OT/PT/Speech Visit (PTWS) DANNY HEATH ([id number]) 1980 M Date Time Provider Department 09/08/24 12:45 PM SEBASTIAN MARROQUIN PTWS Date Time Provider Department [place] 09/08/2024 12:45 PM [id number], MCKENA PTWS Bekah Hodge Reason for Visit: Physical Therapy [503] Primary Visit Diagnosis:Weakness of left lower extremity [R29.898] Allergies As of Date: 09/08/2024 (Not on File) Date Reviewed: Never Reviewed Trust Manager: Therapy (PT/OT/Speech/Resp) ID: [id number] 09/08/2024 1:23 PM Author: SEBASTIAN MARROQUIN Signed by SEBASTIAN MARROQUIN PT, DPT on 09/08/2024 at 1:23 PM Document text: Program_ID:[id number] Access Code: [email or web address] URL: [email or web address] Date: 09-08-2024 Prepared By: Neha Driver Program Notes Exercises - Lateral Step Up with Unilateral Counter Support - 1 x daily - 7 x weekly - 2 sets - 15 reps - Forward Step Up with Unilateral Counter Support - 1 x daily - 7 x weekly - 2 sets - 15 reps - Seated Hamstring Stretch - 2-3 x daily - 7 x weekly - 1 sets - 3 reps - Seated Hamstring Stretch - 2-3 x daily - 7 x weekly - 1 sets - 3 reps - Standing Hip Abduction with Counter Support - 1 x daily - 7 x weekly - 2 sets - 15-20 reps -------- Normal [facility] THERAPY NTon 09-08-2024 THERAPY NT HNO ID: [id number] Author: SEBASTIAN MARROQUIN, PT, DPT Service: ? Author Type: Physical Therapist Type: Therapy (PT/OT/Speech/Resp) Filed: 09/08/2024 13:23 Note Text: Program_ID:[id number] Access Code: [email or web address] URL: [email or web address] Date: 09-08-2024 Prepared By: Neha Driver Program Notes Exercises - Lateral Step Up with Unilateral Counter Support - 1 x daily - 7 x weekly - 2 sets - 15 reps - Forward Step Up with Unilateral Counter Support - 1 x daily - 7 x weekly - 2 sets - 15 reps - Seated Hamstring Stretch - 2-3 x daily - 7 x weekly - 1 sets - 3 reps - Seated Hamstring Stretch - 2-3 x daily - 7 x weekly - 1 sets - 3 reps - Standing Hip Abduction with Counter Support - 1 x daily - 7 x weekly - 2 sets - 15-20 reps Normal [facility] [id number] 09-01-2024 [id number] HNO ID: [id number] Author: NEHA DRIVER PT Service: ? Author Type: Physical Therapist Type: [id number] Filed: 09/01/2024 10:48 Note Text: [facility] Physical Therapy Plan of Care Certification Patient Name: Danny Heath : 1980 [facility] #: [id number] Date: 09/01/2024 To: Denise Reyes MD From Therapist: Neha Driver PT RE: Patient Certification/ Recertification Your review, approval and electronic signature are required in order to comply with Payor: MEDICARE / Plan: MEDICARE A AND B / Product Type: Medicare / regulations. The identified Physical Therapy PLAN OF CARE for the patient is as follows: R29.898 Weakness of left lower extremity (primary encounter diagnosis) PLAN OF CARE UPDATE: Assessment: Danny Heath demonstrates improvements in stair negotiation and weight bearing. The patient has progressed toward goals. Patient continues to present with impairments in ADL's, balance, gait, independence in exercise, joint mobility, overall function, patient reported outcome measures, range of motion, strength, and symptom management that interfere with walking . Current prognosis is Fair due to: poor historian, coping skills, clinical presentation, multiple co- morbidities, chronic nature of impairments, Prognosis may be improved by positive past response to therapy. The patient will benefit from continued skilled therapy services to meet the updated goals for this plan of care as noted below. Goals for Episode of Care: established 07/30/24 Goals updated on 09/01/2024. Monona in home exercise program.-- PROGRESSING Patient will decrease pain to 1-2/10 with functional activities to allow patient to improve ambulation, transfers, and standing tolerance for ADLs. -- MET Patient will increase active ROM of bilateral knee extension to 0 degrees extension to allow pt to to improve postural alignment, to improve performance of ADLs, to improve gait mechanics / gait pattern , and to decrease falls risks . -- PROGRESSING Patient will demonstrate increase in Lquadriceps strength to 4/5 during manual muscle testing in order to improve function for prior functional tasks. -- PROGRESSING , pt. C/o pain with active LAQ and therefore resistance not applied Normal gait. -- PROGRESSING Reciprocal stair negotiation. -- PROGRESSING, pt. Does intermittent step to Patient Goals: walking up and down stairs with reduced L knee pain. -- MET Time Frame for Goals and Treatment : 10/13/24 Patient Goals: walking up and down stairs with reduced L knee pain. Planned Interventions, Frequency, and Duration: 1x/week, 6 weeks Total Number of Visits Planned: 6 Patient to be seen for Gait Training (32533), Self-long-term management (40718), Therapeutic activities (51472), Manual therapy (75667), Neuromuscular re-education (19302), Therapeutic exercise (86589) PLAN FOR NEXT VISIT: increase leg press weight For further details regarding this patient refer to the Physical Therapy electronically documented visit dated 09/01/2024. Provider Attestation I have reviewed the treatment plan for Danny Heath, [facility]# [id number] for the period of 09/01/24 -- 10/13/24, established on 09/01/2024. Signature certifies the need for therapy services. [facility]PT/Speech Visit (PTWS) DANNY HEATH ([id number]) 1980 M Date Time Provider Department 09/01/24 10:15 AM NEHA DRIVER Date Time Provider Department Center 09/01/2024 10:15 AM [id number] LEWIS Reason for Visit: PT Progress Note [1596] Primary Visit Diagnosis:Weakness of left lower extremity [R29.898] Allergies As of Date: 09/01/2024 (Not on File) Date Reviewed: Never Reviewed Letter Text Normal [facility] CNTHERAPYon 08-25-2024 CNTHERAPY OT/PT/Speech Visit (PTWS) DANNY HEATH ([id number]) 1980 M Date Time Provider Department 08/25/24 10:15 AM NEHA DRIVER Date Time Provider Department Center 08/25/2024 10:15 AM [id number] LEWIS Reason for Visit: Physical Therapy [503] Primary Visit Diagnosis:Weakness of left lower extremity [R29.898] Allergies As of Date: 08/25/2024 (Not on File) Date Reviewed: Never Reviewed Trust Manager: Addendum Therapy (PT/OT/Speech/Resp) ID: [id number] 08/25/2024 10:38 AM Author: NEHA DRIVER Signed by NEHA DRIVER PT on 08/25/2024 at 10:38 AM * * * This document replaces document [id number] * * * Document text: Program_ID:[id number] Access Code: [email or web address] URL: [email or web address] Date: 08-25-2024 Prepared By: Neha Driver Program Notes Exercises - Lateral Step Up with Unilateral Counter Support - 1 x daily - 7 x weekly - 2 sets - 15 reps - Forward Step Up with Unilateral Counter Support - 1 x daily - 7 x weekly - 2 sets - 15 reps - Seated Hamstring Stretch - 2-3 x daily - 7 x weekly - 1 sets - 3 reps - Seated Hamstring Stretch - 2-3 x daily - 7 x weekly - 1 sets - 3 reps -------- Normal [facility] T4 Free Directon 08-25-2024 T4 FREE DIRECT 1.56 ng/dL High 0.76-1.46 [facility] Comment on above: Order Comment: Order Date: 10/10/24 Order Info: 3024-7 - T4F TODAYS LABS ONLY PER PT Performed By: #### L 501.9985, L506.0400 #### [facility] [address] [place], [address] THERAPY NTon 08-25-2024 THERAPY NT HNO ID: [id number] Author: NEHA DRIVER, PT Service: ? Author Type: Physical Therapist Type: Therapy (PT/OT/Speech/Resp) Filed: 08/25/2024 10:38 Note Text: Program_ID:[id number] Access Code: [email or web address] URL: [email or web address] Date: 08-25-2024 Prepared By: Neah Driver Program Notes Exercises - Lateral Step Up with Unilateral Counter Support - 1 x daily - 7 x weekly - 2 sets - 15 reps - Forward Step Up with Unilateral Counter Support - 1 x daily - 7 x weekly - 2 sets - 15 reps - Seated Hamstring Stretch - 2-3 x daily - 7 x weekly - 1 sets - 3 reps - Seated Hamstring Stretch - 2-3 x daily - 7 x weekly - 1 sets - 3 reps Normal [facility] Thyroid Stim Hormone (TSH)on 08-25-2024 TSH 1.240 uIU/mL Normal 0.358-3.740 [facility] Comment on above: Order Comment: Order Date: 10/10/24 Order Info: 3024-7 - T4F TODAYS LABS ONLY PER PT Performed By: #### L 501.9985, L506.0400 #### [facility] [address] [place], [place], [address] CBC W/Diff, Automatedon 10- Absolute Lymph 1.70 X10 3/uL Normal 0.83-4.51 [facility] Comment on above: Performed By: #### L 501.9060 #### [facility] [address] [place], [place], [address] Absolute Neut 5.8 X10 3/uL Normal 2.0-7.7 [facility] Comment on above: Performed By: #### L 501.9060 #### [facility] [address] [place], [place], [address] Basophils/100 WBC (Bld) 0.8 % Normal 0-1 [facility] Comment on above: Performed By: #### L 501.9060 #### [facility] [address] [place], [address] Eosinophils/100 WBC (Bld) 6.3 % High 0-5 [facility] Comment on above: Performed By: #### L 182.9034 #### [facility] [address] [place], [address] Erythrocyte distribution width (RBC) [Ratio] 13.6 % Normal 11.6-14.6 [facility] Comment on above: Performed By: #### L 738.9059 #### [facility] [address] [place], [address] Hematocrit (Bld) [Volume fraction] 45.8 % Normal 40-54 [facility] Comment on above: Performed By: #### L 751.9032 #### [facility] [address] [place], [address] Hemoglobin (Bld) [Mass/Vol] 14.0 g/dL Normal 13.0-16.5 [facility] Comment on above: Performed By: #### L 872.9060 #### [facility] [address] [place], [address] IG% 1.000 High 0.0-0.9 [facility] Comment on above: Result Comment: IG% - Immature Granulocytes (promyelocytes, myelocytes and metamyelocytes) > 1% indicates that a LEFT SHIFT is Present. Performed By: #### L 957.9036 #### [facility] [address] [place], [address] Lymphocytes/100 WBC (Bld) 19.0 % Normal 19-41 [facility] Comment on above: Performed By: #### L 925.9084 #### [facility] [address] [place], [address] MCH (RBC) [Entitic mass] 28.7 pg Normal 27.0-32.0 [facility] Comment on above: Performed By: #### L 073.9060 #### [facility] [address] [place], [address] MCHC (RBC) [Mass/Vol] 30.6 g/dL Low 32-36 [facility] Comment on above: Performed By: #### L [id number] #### [facility] [address] [place], [address] MCV (RBC) [Entitic vol] 93.9 fL Normal 80-94 [facility] Comment on above: Performed By: #### L .9060 #### [facility] [address] [place], [address] Monocytes/100 WBC (Bld) 7.7 % Normal 0-10 [facility] Comment on above: Performed By: #### L [id number] #### [facility] [address] [place], [address] Neutrophils/100 WBC (Bld) 65.2 % Normal 47-70 [facility] Comment on above: Performed By: #### L .9060 #### [facility] [address] [place], [address] Nucleated RBC (Bld) [#/Vol] 0 10*3/uL Normal 0-5 [facility] Comment on above: Performed By: #### L 9060 #### [facility] [address] [place], [address] Platelet mean volume (Bld) [Entitic vol] 8.8 fL Normal 6.2-12.0 [facility] Comment on above: Performed By: #### L [id number] #### [facility] [address] [place], [address] Platelets (Bld) [#/Vol] 510 10*3/uL High 150-450 [facility] Comment on above: Performed By: #### L 9060 #### [facility] [address] [place], [address] RBC (Bld) [#/Vol] 4.88 10*6/uL Normal 4.6-6.2 [facility] Comment on above: Performed By: #### L 244.9060 #### [facility] [address] [place], [address] RDW SD 46.5 fl High 35.1-43.9 [facility] Comment on above: Performed By: #### L 501.9060 #### [facility] [address] [place], [address] WBC (Bld) [#/Vol] 9.0 10*3/uL Normal 4.4-11.0 [facility] Comment on above: Performed By: #### L 829.9060 #### [facility] [address] [place], [address] Hemoglobin A1con 08-22-2024 HbA1c (Bld) [Mass fraction] 11.0 % High 3.8-5.6 [facility] Comment on above: Result Comment: Norm al < 5.7 % Prediabetic 5.7 - 6.4 % Diabetic >or= 6.5 % Please note range changes. Performed By: #### L 501.9985, L506.0400 #### [facility] [address] [place], [address] Lipid Profileon 08-22-2024 Cholesterol [Mass/Vol] 122 mg/dL Normal 200 [facility] Comment on above: Result Comment: <200 mg/dL Desirable 200-240 mg/dL Borderline >240 mg/dL High Risk Performed By: #### L 438.9060 #### [facility] [address] [place], [address] Cholesterol in HDL [Mass/Vol] 47 mg/dL Normal [facility] Comment on above: Result Comment: The drugs N-Acetylcysteine and Metamizole may falsely depress this assay. Reference Range HDL <40 mg/dL Low HDL Cholesterol HDL >or= 60 mg/dL High HDL Cholesterol Performed By: #### L 501.9060 #### [facility] [address] [place], [address] Cholesterol in LDL [Mass/Vol] 45 mg/dL Normal 0-130 [facility] Comment on above: Performed By: #### L 501.9060 #### [facility] [address] [place], [address] Cholesterol in VLDL [Mass/Vol] 30 mg/dL Normal 5-40 [facility] Comment on above: Performed By: #### L 501.9060 #### [facility] [address] [place], [address] Triglyceride [Mass/Vol] 152 mg/dL Normal [facility] Comment on above: Result Comment: The drugs N-Acetylcysteine and Metamizole may falsely depress this assay. Serum Triglycerides Reference Interval Normal <150 mg/dL Borderline high 150 - 199 mg/dL High 200 - 499 mg/dL Very High > or = 500 mg/dL Performed By: #### L 501.9060 #### [facility] [address] [place], [address] Microalb:Creat Ratio,Random URon 08-22-2024 Creatinine [Mass/Vol] 43.60 mg/dL Normal NO RANGE EST. [facility] Comment on above: Performed By: #### L 501.9985, L506.0400 #### [facility] [address] [place], [address] MALB:CRE 147.7 mg/g CRE High <30 mg/g CRE [facility] Comment on above: Performed By: #### L 501.9985, L506.0400 #### [facility] [address] [place], [address] MICROALBUMIN,UR 64.4 mg/L Normal NO RANGE EST. [facility] Comment on above: Performed By: #### L 501.9985, L506.0400 #### [facility] [address] [place], [address] Vitamin D,25 Hydroxyon 08-22 Vitamin D 25-OH 50.4 ng/mL Normal [facility] Comment on above: Result Comment: Bindu min D 25(OH) Status Range Deficiency <20 ng/mL (50nmol/L) Insufficiency 20 - 30 ng/mL (50 - 75 nmol/L) Sufficiency 30 - 100 ng/mL (75 - 250 nmol/L) Toxicity >100 ng/mL (>250 nmol/L) Performed By: #### L 501.9060 #### [facility] [address] [place], [address] CNTHERAPYon 08-11-2024 CNTHERAPY OT/PT/Speech Visit (PTWS) DANNY HEATH ([id number]) 1980 M Date Time Provider Department 08/11/24 8:45 AM NEHA DRIVER PTWS Date Time Provider Department Center 08/11/2024 8:45 AM [id number] DRIVER PTWS [facility] Reason for Visit: Physical Therapy [503] Primary Visit Diagnosis:Weakness of left lower extremity [R29.898] Allergies As of Date: 08/11/2024 (Not on File) Date Reviewed: Never Reviewed Trust Manager: Addendum Therapy (PT/OT/Speech/Resp) ID: [id number] 08/11/2024 9:07 AM Author: NEHA DRIVER Signed by NEHA DRIVER PT on 08/11/2024 at 9:07 AM * * * This document replaces document [id number] * * * Document text: Program_ID:[id number] Access Code: [email or web address] URL: [email or web address]/ Date: 08-11-2024 Prepared By: Neha Driver Program Notes Exercises - Supine Sciatic Nerve [place] - 2 x daily - 7 x weekly - 3 sets - 5 reps - Sit to Stand with Arms Crossed - 2 x daily - 7 x weekly - 4 sets - 3 reps - Clamshell - 1 x daily - 5-7 x weekly - 4 sets - 15 reps - Clamshell - 1 x daily - 5-7 x weekly - 4 sets - 15 reps - Prone Hip Extension - 1 x daily - 7 x weekly - 4 sets - 12 reps -------- Normal [facility] THERAPY NTon 08-11-2024 THERAPY NT HNO ID: [id number] Author: NEHA DRIVER, PT Service: ? Author Type: Physical Therapist Type: Therapy (PT/OT/Speech/Resp) Filed: 08/11/2024 09:07 Note Text: Program_ID:[id number] Access Code: [email or web address] URL: [email or web address] Date: 08-11-2024 Prepared By: Neha Driver Program Notes Exercises - Supine Sciatic Nerve [place] - 2 x daily - 7 x weekly - 3 sets - 5 reps - Sit to Stand with Arms Crossed - 2 x daily - 7 x weekly - 4 sets - 3 reps - Clamshell - 1 x daily - 5-7 x weekly - 4 sets - 15 reps - Clamshell - 1 x daily - 5-7 x weekly - 4 sets - 15 reps - Prone Hip Extension - 1 x daily - 7 x weekly - 4 sets - 12 reps Normal [facility] [id number] 07-30-2024 [id number] HNO ID: [id number] Author: NEHA DRIVER PT Service: ? Author Type: Physical Therapist Type: [id number] Filed: 07/30/2024 11:51 Note Text: [facility] Physical Therapy Plan of Care Certification Patient Name: Danny Heath : 1980 [facility] #: [id number] Date: 07/30/2024 To: Denise Reyes MD From Therapist: Neha Driver PT RE: Patient Certification/ Recertification Your review, approval and electronic signature are required in order to comply with Payor: MEDICARE / Plan: MEDICARE A AND B / Product Type: Medicare / regulations. The identified Physical Therapy PLAN OF CARE for the patient is as follows: R29.898 Weakness of left lower extremity (primary encounter diagnosis) PLAN OF CARE: Assessment: Danny Heath presents with diagnosis of weakness of left lower extremity that interferes with stair negotiation, weight bearing . He presents with impairments in ADL's, balance, flexibility, gait, independence in exercise, joint mobility, overall function, patient reported outcome measures, posture, range of motion, strength, symptom management, and tissue tenderness. Patient did not complete the PROMIS? (Patient Reported Outcome Measures Information System) due to family reports of pt. Being a limited historian. Prognosis for therapy is Fair due to: poor historian, coping skills, clinical presentation, multiple co- morbidities, chronic nature of impairments . He will benefit from skilled therapy services to meet the goals established for this plan of care as noted below. Goals for Episode of Care: established 07/30/24 [place] in home exercise program. Patient will decrease pain to 1-2/10 with functional activities to allow patient to improve ambulation, transfers, and standing tolerance for ADLs. Patient will increase active ROM of bilateral knee extension to 0 degrees extension to allow pt to to improve postural alignment, to improve performance of ADLs, to improve gait mechanics / gait pattern , and to decrease falls risks . Patient will demonstrate increase in Lquadriceps strength to 4/5 during manual muscle testing in order to improve function for prior functional tasks. Normal gait. Reciprocal stair negotiation. Patient Goals: walking up and down stairs with reduced L knee pain. Time Frame for Goals and Treatment : 09/10/24 Planned Interventions, Frequency, and Duration: Current Frequency: 1x/week Duration: 6 weeks Total Number of Visits Planned: 6 Planned Treatment Interventions: Gait Training (73352), Self-long-term management (23179), Therapeutic activities (93824), Manual therapy (71721), Neuromuscular re-education (96533), Therapeutic exercise (69604) PLAN FOR NEXT VISIT: Patient demonstrates good understanding of plan of care and treatment. The above goals and plan of care were discussed and agreed upon by patient/family. For further details regarding this patient refer to the Physical Therapy electronically documented visit dated 07/30/2024. Provider Attestation I have reviewed the treatment plan for Danny Heath, [facility]# [id number] for the period of 07/30/24 -- 09/10/24, established on 07/30/2024. Signature certifies the need for therapy services. Normal [facility] CNTHERAPYon 07-30-2024 CNTHERAPY OT/PT/Speech Visit (PTWS) DANNY HEATH ([id number]) 1980 M Date Time Provider Department 07/30/24 11:15 AM NEHA DRIVER Date Time Provider Department [place] 07/30/2024 11:15 AM [id number] DRIVER Reason for Visit: PT Eval [747] Primary Visit Diagnosis:Weakness of left lower extremity [R29.898] Allergies As of Date: 07/30/2024 (Not on File) Date Reviewed: Never Reviewed Trust Manager: Therapy (PT/OT/Speech/Resp) ID: [id number] 07/30/2024 11:34 AM Author: NEHA DRIVER Signed by NEHA DRIVER PT on 07/30/2024 at 11:34 AM Document text: Program_ID:[id number] Access Code: [email or web address] URL: [email or web address]://[employer]/ Date: 07-30-2024 Prepared By: Neha Driver Program Notes Exercises - Seated Sciatic Tensioner - 1-2 x daily - 7 x weekly - 3 sets - 5 reps - Sit to Stand with Counter Support - 1-2 x daily - 7 x weekly - 3 sets - 5 reps - Standing Hip Abduction with Counter Support - 1-2 x daily - 7 x weekly - 4 sets - 15 reps - Standing Hip Extension with Counter Support - 1-2 x daily - 7 x weekly - 4 sets - 15 reps -------- Letter Text Letter Text Normal [facility] THERAPY NTon 07-30-2024 THERAPY NT HNO ID: [id number] Author: NEHA DRIVER, PT Service: ? Author Type: Physical Therapist Type: Therapy (PT/OT/Speech/Resp) Filed: 07/30/2024 11:34 Note Text: Program_ID:[id number] Access Code: [email or web address] URL: [email or web address]://[employer]/ Date: 07-30-2024 Prepared By: Neha Driver Program Notes Exercises - Seated Sciatic Tensioner - 1-2 x daily - 7 x weekly - 3 sets - 5 reps - Sit to Stand with Counter Support - 1-2 x daily - 7 x weekly - 3 sets - 5 reps - Standing Hip Abduction with Counter Support - 1-2 x daily - 7 x weekly - 4 sets - 15 reps - Standing Hip Extension with Counter Support - 1-2 x daily - 7 x weekly - 4 sets - 15 reps Normal [facility] Spine Lumbar W/WO Contraston 06-12-2024 Spine Lumbar W/WO Contrast [facility] [address] [place], [place] [id number] Spine Lumbar W/WO Contrast MR#: [id number] Acct: [id number] Name: DANNY HEATH Rep #: [id number] : 1980 M 43 From: Gabriele Garcia MD PCP: Dr. Denise Reyes MD Status: REG CLI Study: Spine Lumbar W/WO Contrast Date of Exam: 06/28 Exam# [id number] Ordering Dr: Denise Reyes MD [id number] STUDY: MRI LUMBAR SPINE WITH AND WITHOUT CONTRAST REASON FOR EXAM: Male, 43 years old. Back pain and left leg pain. TECHNIQUE: Standardized fat and water weighted pulse sequences were obtained in the sagittal and axial planes. IV 17ml Clariscan was administered for the contrast portion of the examination. COMPARISON: Lumbar spine radiographs 05/23/2024. FINDINGS: T12-L1: (Sagittal only). Normal endplates. Normal disc height, hydration and morphology. No ventral extradural defect. Normal central canal and bilateral intervertebral neural foramina. Normal lumbar lordosis. There is no substantial scoliosis. Normal conus medullaris that terminates at the lower T12 vertebral body level. L1-2: Normal endplates. Normal disc height, hydration and morphology. Normal bilateral facet joints. Normal central canal and bilateral lateral recesses. Normal bilateral intervertebral neural foramina. L2-3: Normal endplates. Normal disc height, hydration and morphology. Normal bilateral facet joints. Normal central canal and bilateral lateral recesses. Normal bilateral intervertebral neural foramina. L3-4: Normal endplates. Normal disc height, hydration and morphology. Normal bilateral facet joints. Normal central canal and bilateral lateral recesses. Normal bilateral intervertebral neural foramina. L4-5: Normal endplates. Normal disc height, hydration and morphology. Normal bilateral facet joints. Normal central canal and bilateral lateral recesses. Normal bilateral intervertebral neural foramina. L5-S1: Normal endplates. Mild disc space height narrowing with minimal degenerative vacuum phenomenon. Normal facet joints. Normal central canal and bilateral lateral recesses. Normal bilateral intervertebral neuroforamina. Normal visualized sacral ala. Normal visualized paraspinous soft tissue structures. Following IV contrast administration, there are no abnormally enhancing lesions intradurally and extradurally. MRI/Spine Lumbar W/WO Contrast IMPRESSION: 1. Normal enhanced and unenhanced MR examination of the lumbar spine. 2. No Modic changes of the vertebral endplates throughout the lumbar spine. Electronically Signed: Gabriele Garcia MD at 9:45 EDT , CC: Dr. Denise Reyes MD Sausage Inspector: Signed Normal [facility] Free T3on 05-23-2024 Free T3 [Mass/Vol] 1.6 pg/mL Low 2.18-3.98 [facility] Comment on above: Performed By: #### L 500.4050, L501.3620, L501.9520, L503.6550, L501.5200 #### [facility] [address] [place], [place], [address] Lithiumon 05-23-2024 LI 1.00 mmol/L Normal 0.60-1.20 [facility] Comment on above: Order Comment: Order Date: 05/13/24 Order Info: [id number] - CMP Order Info: [id number] - CPK Order Info: [id number] - MG Order Info: [id number] - TSH Order Info: [id number] - EMBER Performed By: #### L 500.4050, L501.3620, L501.9520, L503.6550, L501.5200 #### [facility] [address] [place], [place], [address] Lumbar Spine 2 or 3 Viewson 05-23-2024 Lumbar Spine 2 or 3 Views [facility] [address] [place], [place] [address] Lumbar Spine 2 or 3 Views MR#: [id number] Acct: [id number] Name: DANNY HEATH Rep #: [id number] : 1980 M 43 From: Ezequiel Blair MD PCP: Dr. Denise Reyes MD Status: REG CLI Study: Lumbar Spine 2 or 3 Views Date of Exam: Exam# [id number] Ordering Dr: Denise Reyes MD [id number] STUDY: X-RAY - LUMBAR SPINE REASON FOR EXAM: Male, 43 years old. radiculopathy, lumbar region TECHNIQUE: 2 view(s) of the lumbar spine were obtained. COMPARISON: None FINDINGS: Normal lumbar lordosis. There is no substantial scoliosis. There is a normal alignment of the vertebrae. Normal vertebral bodies and endplates. Normal disc space heights. The soft tissue structures are unremarkable. RAD/Lumbar Spine 2 or 3 Views IMPRESSION: Normal x-ray examination of the lumbar spine. Electronically Signed: Ezequiel Blair MD at 17:58 EDT , CC: Dr. Denise Reyes MD Sausage Inspector: Signed Normal [facility] Renal Profileon 05-23-2024 Albumin [Mass/Vol] 3.5 g/dL Normal 3.2-5.0 [facility] Comment on above: Performed By: #### L 500.7340, L501.6010, L501.8925, L503.6550, L501.5200 #### [facility] [address] [place], [address] BUN/CRE 34.3 RATIO High 10-20 [facility] Comment on above: Performed By: #### L 500.4050, L501.3620, L501.9520, L503.6550, L501.5200 #### [facility] [address] [place], [address] CA,Total 9.5 mg/dL Normal 8.5-10.1 [facility] Comment on above: Performed By: #### L 500.4050, L501.3620, L501.9520, L503.6550, L501.5200 #### [facility] [address] [place], [address] Chloride [Moles/Vol] 106 mmol/L Normal 98-107 [facility] Comment on above: Performed By: #### L 500.4050, L501.3620, L501.9520, L503.6550, L501.5200 #### [facility] [address] [place], [address] CO2 [Moles/Vol] 27.0 mmol/L Normal 21.0-32.0 [facility] Comment on above: Performed By: #### L 500.4050, L501.3620, L501.9520, L503.6550, L501.5200 #### [facility] [address] [place], [address] Creatinine [Mass/Vol] 0.61 mg/dL Low 0.70-1.30 [facility] Comment on above: Result Comment: The validity of the calculated GFR GFRAA in patients over 70 years has not been determined. Clinical correlation is essential. Performed By: #### L 500.4050, L501.3620, L501.9520, L503.6550, L501.5200 #### [facility] [address] [place], [address] EST GFR - AA 186 mL/min Normal >60 [facility] Comment on above: Result Comment: Afri can Japanese GFR Calc Performed By: #### L 500.4050, L501.3620, L501.9520, L503.6550, L501.5200 #### [facility] [address] [place], [address] GFR/1.73 sq M.predicted among non-blacks MDRD (S/P/Bld) [Vol rate/Area] 154 mL/min/{1.73_m2} Normal >60 [facility] Comment on above: Result Comment: Non- GFR Calc Performed By: #### L 500.4050, L501.3620, L501.9520, L503.6550, L501.5200 #### [facility] [address] [place], [address] Glucose [Mass/Vol] 150 mg/dL High 74-106 [facility] Comment on above: Result Comment: Fast ing Glucose result greater than or equal to 126 mg/dL suggests DIABETES MELLITUS per A.D.A. criteria. Performed By: #### L 500.4050, L501.3620, L501.9520, L503.6550, L501.5200 #### [facility] [address] [place], [address] Phosphate [Mass/Vol] 3.2 mg/dL Normal 2.5-4.9 [facility] Comment on above: Performed By: #### L 500.4050, L501.3620, L501.9520, L503.6550, L501.5200 #### [facility] [address] [place], [address] Potassium [Moles/Vol] 4.4 mmol/L Normal 3.5-5.1 [facility] Comment on above: Performed By: #### L 500.4050, L501.3620, L501.9520, L503.6550, L501.5200 #### [facility] [address] [place], [address] Sodium [Moles/Vol] 138 mmol/L Normal 136-145 [facility] Comment on above: Performed By: #### L 500.4050, L501.3620, L501.9520, L503.6550, L501.5200 #### [facility] [address] [place], [address] Urea nitrogen [Mass/Vol] 21 mg/dL High 7-18 [facility] Comment on above: Performed By: #### L 500.4050, L501.3620, L501.9520, L503.6550, L501.5200 #### [facility] [address] [place], [address] T4 Free Directon 05-23-2024 T4 FREE DIRECT 1.22 ng/dL Normal 0.76-1.46 [facility] Comment on above: Performed By: #### L 500.4050, L501.3620, L501.9520, L503.6550, L501.5200 #### [facility] [address] [place], [address] Thyroid Stim Hormone (TSH)on 05-23-2024 TSH 1.96 uIU/mL Normal 0.358-3.74 [facility] Comment on above: Performed By: #### L 500.4050, L501.3620, L501.9520, L503.6550, L501.5200 #### [facility] [address] [place], [address] Endocrinology Visit Reporton 05-15-2024 Endocrinology Visit Report [facility] [address] [place], [place] [address] OFFICE VISIT Date of Service: 05/15/24 MR#: [id number] Acct: [id number] Name: DANNY HEATH Rep #: [id number] : 1980 Provider: WILLIAM johnson Age/Sex: 43/M Location: [facility] Status: Signed Intake Vital Signs 01/31/24 14:45 05/15/24 13:09 Height 5 ft 11 in 5 ft 11 in Weight: 181 lb BMI 25.2 BP 142/84 H Blood Pressure Location Lt brachial Position Sitting Pulse 87 Pulse Source Monitor Pulse Oximetry (%) 95 Oxygen Delivery Method room air Intake Visit Reasons: 4 M FU, RS 04/26 Chief Complaint: Diabetes Allergies No Known Allergies Allergy (Verified 01/31/24 14:44) PFS Medical History Bipolar disorder Contact dermatitis due to poison los Dextromethorphan use disorder, mild, abuse Diabetes Family History Other Alcohol abuse Anemia Arthritis Diabetes H/O transfusion of whole blood Heart disease High cholesterol Hypertension Mental disorder Myocardial infarction Thyroid disorder Social History Smoking Status: Current every day smoker alcohol intake: never substance use type: does not use what type of physical activity do you participate in: walking frequency: daily HPI HPI Chief Complaint: Diabetes Details: DANNY HEATH, is a 43 M who presents to the office today for evaluation and management of diabetes. A1C today is 10.1%, improved from 01/11/24 at 12.8%. He has lost 4 lbs. At his last appt he resumed U-500, he was instructed to take 50 u TIDCM, he admits that he does not take this every time he eats. Additionally, he is taking Ozempic 1 mg qweek and Invokana-met 50- 1,000 mg once BID. He reports he has been compliant with oral medications. CGM downloaded and reviewed- he is not scanning often enough to appreciate any pattern. He admits that his diet is high in low fiber carbohydrates. Hx of bipolar, he and his mother feel this is poorly controlled. He does see a counselor at the counseling center but states he does not feel it is beneficial. He admits that given his mental health he does not care about managing his other chronic conditions. I asked if he was passively suicidal to he adamantly denied. He is currently living with his parents, his sister is his legal guardian; however, she does not live in town. Labs are up to date. Denies any acute concerns. Exam Const General: cooperative, healthy appearing, comfortable and no acute distress Nutritional Appearance: overweight Orientation: alert, awake and oriented x3 [facility] Head: normal to inspection Ears: hearing grossly normal bilaterally Nose: external nose normal Face and sinus: normal facial exam Eyes General: appearance normal, both eyes and all related structures Alignment and Position: alignment normal Sclera: sclerae normal Neck Neck: normal visual inspection Carotids: normal carotid upstroke Chest Chest palpation inspection: normal inspection of the chest Resp Effort Inspection: normal respiratory effort, able to speak in complete sentences, symmetric chest movement, normal respiratory pattern, no audible wheezes and no cough Auscultation: Bilateral: Clear to Auscultation Cardio Rate: regular rate Rhythm: regular rhythm Heart Sounds: S1 normal and S2 normal Bruits: no carotid bruits GI Inspection: normal to inspection Musc Cervical Spine: normal cervical lordosis Thoracic/Lumbar Spine: thoracic and lumbar spine normal to inspection Skin General: no rashes or lesions noted Lesions: no lesions Rashes: no rashes Trauma: no lacerations or abrasions Wounds: no wounds Neuro General: patient alert, patient awake and patient oriented x3 Cognition: normal cognition Speech: speech normal Gait: normal gait Extrem General: normal to inspection and no pedal edema Psych Appearance: grossly normal Mental Status: mental status grossly normal Mood: congruent mood Affect: sad and flat Speech and Movement: speech and movement normal Attitude: cooperative Thought Process: normal Thought Content: normal Judgment: fair Results POC A1C POC A1C 10.1 % Last Edit by Corazon Draper on 05/15/24 13:19 Coding Level of Care Code Off vis,est,level 4 Extra Time Spent Extra Time Spent Extra Time Spent: G2211 Diagnoses Type 2 diabetes mellitus with hyperglycemia, with long-term current use of insulin E11.65; Z79.4 Diabetes mellitus complication status: with hyperglycemia Diabetes mellitus manager intermediate insulin use: with manager intermediate use Diabetes mellitus type: type 2 Bipolar affective disorder, remiss (more content not included)... Normal [facility] CPK Total, Creatine Kinaseon 05-13-2024 CPK TOTAL 50 U/L Normal 39-308 [facility] Comment on above: Order Comment: Order Date: 05/13/24 Order Info: 86-1 - CMP Order Info: 2157-6 - CPK Order Info: 42541-9 - MG Order Info: 3016-3 - TSH Order Info: 227-4 - EMBER Performed By: #### L 500.4050, L501.3620, L501.9520, L503.6550, L501.5200 #### [facility] [address] [place], [address] Comprehensive Metabolic Prof ilon 05-13-2024 Albumin [Mass/Vol] 3.7 g/dL Normal 3.2-5.0 [facility] Comment on above: Order Comment: Order Date: 05/13/24 Order Info: 785-1 - CMP Order Info: 2157-6 - CPK Order Info: 51112-2 - MG Order Info: 3016-3 - TSH Order Info: 2275-4 - EMBER Performed By: #### L 500.4050, L501.3620, L501.9520, L503.6550, L501.5200 #### [facility] [address] [place], [address] Albumin/Globulin [Mass ratio] 0.9 {ratio} Normal 0.9-2.4 [facility] Comment on above: Order Comment: Order Date: 05/13/24 Order Info: 86-1 - CMP Order Info: 2157-6 - CPK Order Info: 01127-9 - MG Order Info: 3016-3 - TSH Order Info: 2276-4 - EMBER Performed By: #### L 500.4050, L501.3620, L501.9520, L503.6550, L501.5200 #### [facility] [address] [place], [address] ALK P 139 U/L High 45-117 [facility] Comment on above: Order Comment: Order Date: 05/13/24 Order Info: 86-1 - CMP Order Info: 2157-6 - CPK Order Info: 13715-7 - MG Order Info: 3 - TSH Order Info: 2276-02 - EMBER Performed By: #### L 500.4050, L501.3620, L501.9520, L503.6550, L501.5200 #### [facility] [address] [place], [address] ALT [Catalytic activity/Vol] 69 U/L High 16-61 [facility] Comment on above: Order Comment: Order Date: 05/13/24 Order Info: 785-1 - CMP Order Info: 2157-6 - CPK Order Info: 18667-3 - MG Order Info: 3 - TSH Order Info: 2276-02 - EMBER Performed By: #### L 500.4050, L501.3620, L501.9520, L503.6550, L501.5200 #### [facility] [address] [place], [address] AST [Catalytic activity/Vol] 35 U/L Normal 15-37 [facility] Comment on above: Order Comment: Order Date: 05/13/24 Order Info: 785-1 - CMP Order Info: 2157-6 - CPK Order Info: 72014-5 - MG Order Info: 3 - TSH Order Info: 2276-02 - EMBER Performed By: #### L 500.4050, L501.3620, L501.9520, L503.6550, L501.5200 #### [facility] [address] [place], [address] Bilirubin [Mass/Vol] 0.30 mg/dL Normal 0.20-1.00 [facility] Comment on above: Order Comment: Order Date: 05/13/24 Order Info: 86-1 - CMP Order Info: 2157-6 - CPK Order Info: 94054-5 - MG Order Info: 3 - TSH Order Info: 4 - EMBER Result Comment: For patients on eltrombopag therapy, use of Dimension [place] TBIL is not recommended. Performed By: #### L 500.4050, L501.3620, L501.9520, L503.6550, L501.5200 #### [facility] [address] [place], [address] BUN/CRE 46.1 RATIO High 10-20 [facility] Comment on above: Order Comment: Order Date: 05/13/24 Order Info: 0786-1 - CMP Order Info: 2157-6 - CPK Order Info: 51492-2 - MG Order Info: 3016-3 - TSH Order Info: 4 - EMBER Performed By: #### L 500.4050, L501.3620, L501.9520, L503.6550, L501.5200 #### [facility] [address] [place], [address] CA,Total 9.6 mg/dL Normal 8.5-10.1 [facility] Comment on above: Order Comment: Order Date: 05/13/24 Order Info: 86-1 - CMP Order Info: 2157-6 - CPK Order Info: 02588-0 - MG Order Info: 3016-3 - TSH Order Info: 2275-4 - EMBER Performed By: #### L 500.4050, L501.3620, L501.9520, L503.6550, L501.5200 #### [facility] [address] [place], [address] Chloride [Moles/Vol] 97 mmol/L Low 98-107 [facility] Comment on above: Order Comment: Order Date: 05/13/24 Order Info: 0786-1 - CMP Order Info: 2157-6 - CPK Order Info: 09093-1 - MG Order Info: 3016-3 - TSH Order Info: 2276-4 - EMBER Performed By: #### L 500.4050, L501.3620, L501.9520, L503.6550, L501.5200 #### [facility] [address] [place], [address] CO2 [Moles/Vol] 21.0 mmol/L Normal 21.0-32.0 [facility] Comment on above: Order Comment: Order Date: 05/13/24 Order Info: 86-1 - CMP Order Info: 2157-6 - CPK Order Info: 49150-1 - MG Order Info: 3016-3 - TSH Order Info: 2276-02 - EMBER Performed By: #### L 500.4050, L501.3620, L501.9520, L503.6550, L501.5200 #### [facility] [address] [place], [address] Creatinine [Mass/Vol] 1.02 mg/dL Normal 0.70-1.30 [facility] Comment on above: Order Comment: Order Date: 05/13/24 Order Info: 785- - CMP Order Info: 2157-6 - CPK Order Info: 57495-4 - MG Order Info: 3 - TSH Order Info: 2276-02 - EMBER Result Comment: The validity of the calculated GFR GFRAA in patients over 70 years has not been determined. Clinical correlation is essential. Performed By: #### L 500.4050, L501.3620, L501.9520, L503.6550, L501.5200 #### [facility] [address] [place], [address] EST GFR - AA 103 mL/min Normal >60 [facility] Comment on above: Order Comment: Order Date: 05/13/24 Order Info: 785-1 - CMP Order Info: 2157-6 - CPK Order Info: 42424-9 - MG Order Info: 3013 - TSH Order Info: 2276-02 - EMBER Result Comment: Afri can Japanese GFR Calc Performed By: #### L 500.4050, L501.3620, L501.9520, L503.6550, L501.5200 #### [facility] [address] [place], [address] GAP 7 Normal 5-15 [facility] Comment on above: Order Comment: Order Date: 05/13/24 Order Info: 86-1 - CMP Order Info: 2157-6 - CPK Order Info: 01029-6 - MG Order Info: 3016-3 - TSH Order Info: 2275-4 - EMBER Performed By: #### L 500.4050, L501.3620, L501.9520, L503.6550, L501.5200 #### [facility] [address] [place], [address] GFR/1.73 sq M.predicted among non-blacks MDRD (S/P/Bld) [Vol rate/Area] 85 mL/min/{1.73_m2} Normal >60 [facility] Comment on above: Order Comment: Order Date: 05/13/24 Order Info: 785-1 - CMP Order Info: 2157-6 - CPK Order Info: 93863-2 - MG Order Info: 3015-3 - TSH Order Info: 2275-4 - EMBER Result Comment: Non- GFR Calc Performed By: #### L 500.4050, L501.3620, L501.9520, L503.6550, L501.5200 #### [facility] [address] [place], [address] Globulin (S) [Mass/Vol] 3.9 g/dL Normal 2.2-4.2 [facility] Comment on above: Order Comment: Order Date: 05/13/24 Order Info: 785-1 - CMP Order Info: 2157-6 - CPK Order Info: 62286-3 - MG Order Info: 3016-3 - TSH Order Info: 2276-4 - EMBER Performed By: #### L 500.4050, L501.3620, L501.9520, L503.6550, L501.5200 #### [facility] [address] [place], [address] Glucose [Mass/Vol] 591 mg/dL Invalid Interpretation Code 74-106 [facility] Comment on above: Order Comment: Order Date: 05/13/24 Order Info: 785-1 - CMP Order Info: 2157-6 - CPK Order Info: 73401-5 - MG Order Info: 3016-3 - TSH Order Info: 2276-4 - EMBER Result Comment: Angelt ical Result(s) Called at: 16:22:47 05/13/2024 by: Scarlett Zuluaga to Lissy Jennings Results read back by same. Glucose result greater than or equal to 200 mg/dL suggests DIABETES MELLITUS per A.D.A. criteria. Performed By: #### L 500.4050, L501.3620, L501.9520, L503.6550, L501.5200 #### [facility] [address] [place], [address] Potassium [Moles/Vol] 5.1 mmol/L Normal 3.5-5.1 [facility] Comment on above: Order Comment: Order Date: 05/13/24 Order Info: 785-11 - CMP Order Info: 7-6 - CPK Order Info: 58093-2 - MG Order Info: 3 - TSH Order Info: 4 - EMBER Performed By: #### L 500.4050, L501.3620, L501.9520, L503.6550, L501.5200 #### [facility] [address] [place], [address] Sodium [Moles/Vol] 125 mmol/L Low 136-145 [facility] Comment on above: Order Comment: Order Date: 05/13/24 Order Info: 1 - CMP Order Info: 2157-6 - CPK Order Info: 28118-9 - MG Order Info: 3 - TSH Order Info: 2276-4 - EMBER Performed By: #### L 500.4050, L501.3620, L501.9520, L503.6550, L501.5200 #### [facility] [address] [place], [address] T PROT 7.6 g/dL Normal 6.4-8.2 [facility] Comment on above: Order Comment: Order Date: 05/13/24 Order Info: 785-1 - CMP Order Info: 7-6 - CPK Order Info: 30071-2 - MG Order Info: 3016-3 - TSH Order Info: 2276-4 - EMBER Performed By: #### L 500.4050, L501.3620, L501.9520, L503.6550, L501.5200 #### [facility] [address] [place], [address] Urea nitrogen [Mass/Vol] 47 mg/dL High 7-18 [facility] Comment on above: Order Comment: Order Date: 05/13/24 Order Info: 785-1 - CMP Order Info: 7-6 - CPK Order Info: 51984-0 - MG Order Info: 3015-3 - TSH Order Info: 2275-4 - EMBER Performed By: #### L 500.4050, L501.3620, L501.9520, L503.6550, L501.5200 #### [facility] [address] [place], [address] Ferritinon 05-13-2024 Ferritin [Mass/Vol] 28 ng/mL Normal 26-388 [facility] Comment on above: Order Comment: Order Date: 05/13/24 Order Info: 785-1 - CMP Order Info: 7-6 - CPK Order Info: 97546-1 - MG Order Info: 3015-3 - TSH Order Info: 2275-4 - EMBER Performed By: #### L 500.4050, L501.3620, L501.9520, L503.6550, L501.5200 #### [facility] [address] [place], [address] Magnesiumon 05-13-2024 Magnesium [Mass/Vol] 2.5 mg/dL Normal 1.6-2.6 [facility] Comment on above: Order Comment: Order Date: 05/13/24 Order Info: 07861 - CMP Order Info: 7-6 - CPK Order Info: 44467-6 - MG Order Info: 3 - TSH Order Info: 2276-02 - EMBER Performed By: #### L 500.4050, L501.3620, L501.9520, L503.6550, L501.5200 #### [facility] [address] [place], [place], [address] Thyroid Stim Hormone (TSH)on 05-13-2024 TSH 2.98 uIU/mL Normal 0.358-3.74 [facility] Comment on above: Order Comment: Order Date: 05/13/24 Order Info: 785-11 - CMP Order Info: 7-6 - CPK Order Info: 02474-2 - MG Order Info: 3 - TSH Order Info: 2276-02 - EMBER Performed By: #### L 500.4050, L501.3620, L501.9520, L503.6550, L501.5200 #### [facility] [address] [place], [place], [address] Absolute lymphocyte countOrd ered By: Yasmany Borges on 02-21-2024 Lymphocytes Auto (Unsp spec) [#/Vol] 2.25 10*3/uL 0.83-4.51 [facility] Automated lymphocyte count a s percentage of total leukocytesOrdered By: Yasmany Borges on 02-21-2024 Lymphocytes/100 WBC Auto (Unsp spec) 17.9 % 19-41 [facility] Basophil percentageOrdered B y: Yasmany Borges on 02-21-2024 Basophils/100 WBC (Bld) 1.0 % 0-1 [facility] Eosinophils/100 WBC (Bld) 10.7 % 0-5 [facility] Hemoglobin (Bld) [Mass/Vol] 13.9 g/dL 13.0-16.5 [facility] LDH [Catalytic activity/Vol] 140 U/L 87-241 [facility] Monocytes/100 WBC (Bld) 9.4 % 0-10 [facility] Neutrophils (Bld) [#/Vol] 7.6 10*3/uL 2.0-7.7 [facility] Neutrophils/100 WBC (Bld) 60.4 % 47-70 [facility] WBC (Bld) [#/Vol] 12.6 10*3/uL 4.4-11.0 [facility] Determination of erythrocyte mean corpuscular volume (MCV)Ordered By: Yasmany Borges on 02-21-2024 MCV (RBC) [Entitic vol] 92.8 fL 80-94 [facility] Erythrocyte distribution wid th ratioOrdered By: Yasmanymichael Borges on 02-21-2024 Erythrocyte distribution width (RBC) [Ratio] 14.3 % 11.6-14.6 [facility] Erythrocyte distribution wid th standard deviationOrdered By: Yasmanymichael Borges on 02-21-2024 Erythrocyte distribution width (RBC) [Entitic vol] 47.9 fL 35.1-43.9 [facility] Erythrocyte sedimentation ra teOrdered By: Yasmany Borges on 02-21-2024 ESR (Bld) [Velocity] 36 mm/h 0-20 [facility] HIV 1 and HIV-2 antibody ass ay with HIV-1 p24 antigen detectionOrdered By: Yasmany Borges on 02-21-2024 HIV 1+2 Ab+HIV1 p24 Ag IA Ql Non-Reactive Nonreactive [facility] Hematocrit Auto (Bld) [Volum e fraction]Ordered By: Yasmany Borges on 02-21-2024 Hematocrit (Bld) [Volume fraction] 45.4 % 40-54 [facility] Hemoglobin in reticulocytes (mass per reticulocyte)Ordered By: Yasmany Borges on 02-21-2024 Hemoglobin (Reticulocytes) [Entitic mass] 33.4 pg 30-35 [facility] Immature granulocytes/100 WB C Auto (Bld)Ordered By: Yasmany Borges on 02-21-2024 Immature granulocytes/100 WBC (Bld) 0.600 % 0.0-0.9 [facility] Comment on above: IG% - Immature Granu locytes (promyelocytes, myelocytes and metamyelocytes) > 1% indicates that a LEFT SHIFT is Present. Iron measurement (mass/mass) Ordered By: Yasmany Borges on 02-21-2024 Iron (Unsp spec) [Mass/Mass] 70 ug/dL 65-175 [facility] - Chemistry and C hemistry - challengeOrdered By: Yasmany Borges on 02-21-2024 CK [Catalytic activity/Vol] 35 U/L 39-308 [facility] Ferritin [Mass/Vol] 11 ng/mL 26-388 [facility] - Hematology and Cell countsOrdered By: Yasmany Borges on 02-21-2024 MCH (RBC) [Entitic mass] 28.4 pg 27.0-32.0 [facility] MCHC (RBC) [Mass/Vol] 30.6 g/dL 32-36 [facility] Nucleated RBC/100 WBC (Bld) [Ratio] 0 % 0-5 [facility] Platelet mean volume (Bld) [Entitic vol] 8.8 fL 6.2-12.0 [facility] Platelets (Bld) [#/Vol] 449 10*3/uL 150-450 [facility] No Panel InformationOrdered By: Yasmany Borges on 02-21-2024 C-Reactive Protein Extended Range < 2.90 mg/L 0.0-3.0 [facility] Comment on above: C-Reactive Protein ( CRP) provides useful information for thediagnosis, therapy and monitoring of inflammatory processesand associated diseases. For the evaluation of Relative Riskfor Cardiovascular Disease, a High Sensitivity CRP (HSCRP)should be ordered. Immature Reticulocyte Fraction 21.10 % 3.00-15.90 [facility] Total Iron Binding Capacity 521 ug/dL 250-450 [facility] RBC Auto (Bld) [#/Vol]Ordere d By: Yasmany Borges on 02-21-2024 RBC (Bld) [#/Vol] 4.89 10*6/uL 4.6-6.2 [facility] Reticulocytes Auto (Bld) [#/ Vol]Ordered By: Yasmany Borges on 02-21-2024 Reticulocytes/100 RBC (Bld) 1.97 % 0.5-1.5 [facility] Serum mitochondria antibody detectionOrdered By: Yasmany Borges on 02-21-2024 Mitochondria Ab Ql (S) <20.0 Units 0.0-20.0 [facility] Comment on above: Negative 0.0 - 20.0 Equivocal 20.1 - 24.9 Positive >24.9Mitochondrial (M2) Antibodies are found in 90-96% ofpatients with primary biliary cirrhosis.Performed at: [facility] [id number] Director: Can Calvo PhD, Phone: [phone] Laboratory - Hematology and Cell countson 01-31-2024 HbA1c (Bld) [Mass fraction] 12.8 % 4.2-6.3 [facility] - Hematology and Cell countson 12-24-2023 HbA1c (Bld) [Mass fraction] % 4.2-6.3 [facility] Basophil percentageOrdered B y: Yasmany Borges on 09-24-2023 Basophil percentage 0.2 AI 0.0-0.9 [facility] Basophil percentage < 0.2 AI 0.0-0.9 [facility] LDH [Catalytic activity/Vol] 159 U/L 87-241 [facility] Erythrocyte sedimentation ra teOrdered By: Yasmany Borges on 09-24-2023 ESR (Bld) [Velocity] 36 mm/h 0-20 [facility] HIV 1 and HIV-2 antibody ass ay with HIV-1 p24 antigen detectionOrdered By: Yasmany Borges on 09-24-2023 HIV 1+2 Ab+HIV1 p24 Ag IA Ql Non-Reactive Nonreactive [facility] Hemoglobin in reticulocytes (mass per reticulocyte)Ordered By: Yasmany Borges on 09-24-2023 Hemoglobin (Reticulocytes) [Entitic mass] 30.8 pg 30-35 [facility] - Chemistry and C hemistry - challengeOrdered By: Yasmanymichael Borges on 09-24-2023 CK [Catalytic activity/Vol] 42 U/L 39-308 [facility] Free T4 [Mass/Vol] 1.26 ng/dL 0.76-1.46 [facility] No Panel InformationOrdered By: Yasmany Borges on 09-24-2023 Centromere B Antibody <0.2 AI 0.0-0.9 [facility] Free Triiodothyronine (T3) pg/dL 1.7 pg/mL 2.18-3.98 [facility] Immature Reticulocyte Fraction 19.80 % 3.00-15.90 [facility] Reticulocyte Count 1.78 % 0.5-1.5 [facility] [employer]INEER Antibody <0.2 AI 0.0-0.9 [facility] Thyroid Stimulating Hormone (TSH) 1.17 uIU/mL 0.358-3.74 [facility] Total Iron Binding Capacity 417 ug/dL 250-450 [facility] Serum DNA double strand anti body assay (units/volume)Ordered By: Yasmany Borges on 09-24-2023 DNA double strand Ab Qn (S) [IU]/mL 0-9 [facility] Comment on above: Negative <5 Equivoca l 5 - 9 Positive >9 Serum Elaine-1 antibody assay (u nits/volume)Ordered By: Yasmany Borges on 09-24-2023 Elaine-1 extractable nuclear Ab Qn (S) <0.2 AI 0.0-0.9 [facility] Serum Scl-70 extractable nuc lear antibody assay (units/volume)Ordered By: Yasmanymichael Borges on 09-24-2023 SCL-70 extractable nuclear Ab Qn (S) <0.2 AI 0.0-0.9 [facility] Serum Dao extractable nucl ear antibody detectionOrdered By: Yasmany Borges on 09-24-2023 Dao extractable nuclear Ab Ql (S) <0.2 AI 0.0-0.9 [facility] Serum mitochondria antibody detectionOrdered By: Yasmany Borges on 09-24-2023 Mitochondria Ab Ql (S) <20.0 Units 0.0-20.0 [facility] Comment on above: Negative 0.0 - 20.0 Equivocal 20.1 - 24.9 Positive >24.9Mitochondrial (M2) Antibodies are found in 90-96% ofpatients with primary biliary cirrhosis.Performed at: [address] [id number] Director: Can Calvo PhD, Phone: [phone] Serum or plasma C reactive p rotein measurement (mass/volume)Ordered By: Yasmany Borges on 09-24-2023 CRP [Mass/Vol] mg/L 0.0-3.0 [facility] Comment on above: C-Reactive Protein ( CRP) provides useful information for thediagnosis, therapy and monitoring of inflammatory processesand associated diseases. For the evaluation of Relative Riskfor Cardiovascular Disease, a High Sensitivity CRP (HSCRP)should be ordered. Serum or plasma ferritin luciana surement (mass/volume)Ordered By: Yasmany Borges on 09-24-2023 Ferritin [Mass/Vol] 20 ng/mL 26-388 [facility] Basophil percentageOrdered B y: William Owens on 05-02-2023 Bilirubin [Mass/Vol] 0.10 mg/dL 0.20-1.00 [facility] Comment on above: For patients on eltr ombopag therapy, use of Dimension [place] TBIL is not recommended. Chloride [Moles/Vol] 112 mmol/L 98-107 [facility] Cholesterol [Mass/Vol] 91 mg/dL <200 [facility] Comment on above: <200 mg/dL Desirable 200-240 mg/dL Borderline >240 mg/dL High Risk Glucose [Mass/Vol] 91 mg/dL 74-106 [facility] Potassium [Moles/Vol] 4.4 mmol/L 3.5-5.1 [facility] Protein [Mass/Vol] 7.7 g/dL 6.4-8.2 [facility] Sodium [Moles/Vol] 139 mmol/L 136-145 [facility] Triglyceride [Mass/Vol] 129 mg/dL <199 [facility] Comment on above: The drugs N-Acetylcy steine and Metamizole may falsely depress this assay.Serum Triglycerides Reference Interval Normal <150 mg/dL Borderline high 150 - 199 mg/dL High 200 - 499 mg/dL Very High > or = 500 mg/dL Laboratory - Chemistry and C hemistry - challengeOrdered By: William Owens on 05-02-2023 ALP [Catalytic activity/Vol] 117 U/L 45-117 [facility] ALT [Catalytic activity/Vol] 204 U/L 16-61 [facility] CO2 [Moles/Vol] 25.0 mmol/L 21.0-32.0 [facility] Free T4 [Mass/Vol] 1.14 ng/dL 0.76-1.46 [facility] Globulin (S) [Mass/Vol] 4.3 g/dL 2.2-4.2 [facility] Urea nitrogen/Creatinine [Mass ratio] 28.5 mg/mg 10-20 [facility] - Hematology and Cell countson 05-02-2023 HbA1c (Bld) [Mass fraction] 11.7 % 4.2-6.3 [facility] No Panel InformationOrdered By: William Owens on 05-02-2023 Estimated GFR (MDRD) Amer 113 mL/min >60 [facility] Comment on above: GFR Calc Estimated GFR (MDRD) Non-Af Amer 94 mL/min >60 [facility] Comment on above: Non- GFR Calc Thyroid Stimulating Hormone (TSH) 2.68 uIU/mL 0.358-3.74 [facility] Urine Microalbumin/Creatinine Ratio 79.8 mg/g CRE <30 [facility] Serum or plasma albumin kain urement (mass/volume)Ordered By: William Owens on 05-02-2023 Albumin [Mass/Vol] 3.4 g/dL 3.2-5.0 [facility] Serum or plasma albumin/glob ulin mass ratioOrdered By: William Owens on 05-02-2023 Albumin/Globulin [Mass ratio] 0.8 {ratio} 0.9-2.4 [facility] Serum or plasma calcium kain urement (mass/volume)Ordered By: William Owens on 05-02-2023 Calcium [Mass/Vol] 9.6 mg/dL 8.5-10.1 [facility] Serum or plasma cholesterol in HDL measurement (mass/volume)Ordered By: William Owens on 05-02-2023 Cholesterol in HDL [Mass/Vol] 44 mg/dL >40 [facility] Comment on above: The drugs N-Acetylcy steine and Metamizole may falsely depress this assay. Reference Range HDL <40 mg/dL Low HDL Cholesterol HDL >or= 60 mg/dL High HDL Cholesterol Serum or plasma cholesterol in VLDL measurement (mass/volume)Ordered By: William Owens on 05-02-2023 Cholesterol in VLDL [Mass/Vol] 26 mg/dL 5-40 [facility] Serum or plasma creatinine m easurement (mass/volume)Ordered By: William Owens on 05-02-2023 Creatinine [Mass/Vol] 0.95 mg/dL 0.70-1.30 [facility] Comment on above: The validity of the calculated GFR & GFRAA in patients over 70 years has not been determined. Clinical correlation is essential. Serum or plasma low density lipoprotein (LDL) cholesterol measurement (mass/volume)Ordered By: William Owens on 05-02-2023 Cholesterol in LDL [Mass/Vol] 21 mg/dL 0-130 [facility] Serum or plasma urea nitroge n measurement (mass/volume)Ordered By: William Owens on 05-02-2023 Urea nitrogen [Mass/Vol] 27 mg/dL 7-18 [facility] Thin prep Papanicolaou smear with manual screeningOrdered By: William Owens on 05-02-2023 Thin prep Papanicolaou smear with manual screening 85 U/L 15-37 [facility] Thin prep Papanicolaou smear with manual screening 2 5-15 [facility] Thin prep Papanicolaou smear with manual screening 40.0 mg/L NO RANGE EST. [facility] Urine creatinine measurement (mass/volume)Ordered By: William Owens on 05-02-2023 Creatinine (U) [Mass/Vol] 50.10 mg/dL NO RANGE EST. [facility] Laboratory - Hematology and Cell countson 01-25-2023 HbA1c (Bld) [Mass fraction] 9.3 % 4.2-6.3 [facility] Laboratory - Chemistry and C hemistry - challengeon 10-19-2022 Free T4 [Mass/Vol] 1.32 ng/dL 0.76-1.46 [facility] Work Phone: Laboratory - Hematology and Cell countson 10-19-2022 HbA1c (Bld) [Mass fraction] 7.6 % [facility] Work Phone: No Panel Informationon 10-19 Thyroid Stimulating Hormone (TSH) 2.30 uIU/mL 0.358-3.74 [facility] Work Phone: Absolute lymphocyte counton 05-01-2022 Lymphocytes Auto (Unsp spec) [#/Vol] 3.36 10*3/uL 0.83-4.51 [facility] Work Phone: Basophil percentageon 2021 Basophils/100 WBC (Bld) 0.9 % 0-1 [facility] Work Phone: Bilirubin [Mass/Vol] 0.30 mg/dL 0.20-1.00 [facility] Work Phone: [phone] Comment on above: For patients on eltr ombopag therapy, use of Dimension [place] TBIL is not recommended. Chloride [Moles/Vol] 112 mmol/L 98-107 [facility] Work Phone: Cholesterol [Mass/Vol] 133 mg/dL <200 [facility] Work Phone: Comment on above: <200 mg/dL Desirable 200-240 mg/dL Borderline >240 mg/dL High Risk Eosinophils/100 WBC (Bld) 8.7 % 0-5 [facility] Work Phone: Glucose [Mass/Vol] 196 mg/dL 74-106 [facility] Work Phone: Comment on above: Fasting Glucose resu lt greater than or equal to 126 mg/dL suggests DIABETES MELLITUS per A.D.A. criteria. Neutrophils (Bld) [#/Vol] 5.8 10*3/uL 2.0-7.7 [facility] Work Phone: Neutrophils/100 WBC (Bld) 51.3 % 47-70 [facility] Work Phone: Potassium [Moles/Vol] 4.4 mmol/L 3.5-5.1 [facility] Work Phone: Protein [Mass/Vol] 7.5 g/dL 6.4-8.2 [facility] Work Phone: Sodium [Moles/Vol] 141 mmol/L 136-145 [facility] Work Phone: Triglyceride [Mass/Vol] 154 mg/dL <199 [facility] Work Phone: Comment on above: The drugs N-Acetylcy steine and Metamizole may falsely depress this assay.Serum Triglycerides Reference Interval Normal <150 mg/dL Borderline high 150 - 199 mg/dL High 200 - 499 mg/dL Very High > or = 500 mg/dL WBC (Bld) [#/Vol] 11.3 10*3/uL 4.4-11.0 [facility] Work Phone: Blood erythrocytes count (nu mber/volume)on 05-01-2022 RBC (Bld) [#/Vol] 4.87 10*6/uL 4.6-6.2 [facility] Work Phone: Blood hemoglobin measurement (mass/volume)on 05-01-2022 Hemoglobin (Bld) [Mass/Vol] 13.6 g/dL 13.0-16.5 [facility] Work Phone: Blood lymphocytes/100 leukoc yteson 05-01-2022 Lymphocytes/100 WBC (Bld) 29.8 % 19-41 [facility] Work Phone: Blood monocytes/100 leukocyt eson 05-01-2022 Monocytes/100 WBC (Bld) 9.0 % 0-10 [facility] Work Phone: Blood platelet mean volumeon 05-01-2022 Platelet mean volume (Bld) [Entitic vol] 9.4 fL 6.2-12.0 [facility] Work Phone: Determination of erythrocyte mean corpuscular volume (MCV)on 05-01-2022 MCV (RBC) [Entitic vol] 90.3 fL 80-94 [facility] Work Phone: Hematocrit Auto (Bld) [Volum e fraction]on 05-01-2022 Hematocrit (Bld) [Volume fraction] 44.0 % 40-54 [facility] Work Phone: Laboratory - Chemistry and C hemistry - challengeon 05-01-2022 ALP [Catalytic activity/Vol] 69 U/L 45-117 [facility] Work Phone: ALT [Catalytic activity/Vol] 59 U/L 16-61 [facility] Work Phone: CO2 [Moles/Vol] 23.0 mmol/L 21.0-32.0 [facility] Work Phone: Free T4 [Mass/Vol] 1.12 ng/dL 0.76-1.46 [facility] Work Phone: Globulin (S) [Mass/Vol] 3.8 g/dL 2.2-4.2 [facility] Work Phone: Urea nitrogen/Creatinine [Mass ratio] 21.1 mg/mg 10-20 [facility] Work Phone: Laboratory - Hematology and Cell countson 05-01-2022 Erythrocyte distribution width (RBC) [Entitic vol] 48.6 fL 35.1-43.9 [facility] Work Phone: [phone] Erythrocyte distribution width (RBC) [Ratio] 14.6 % 11.6-14.6 [facility] Work Phone: Immature granulocytes/100 WBC (Bld) 0.300 % 0.0-0.9 [facility] Work Phone: Comment on above: IG% - Immature Granu locytes (promyelocytes, myelocytes and metamyelocytes) > 1% indicates that a LEFT SHIFT is Present. MCH (RBC) [Entitic mass] 27.9 pg 27.0-32.0 [facility] Work Phone: Nucleated RBC/100 WBC (Bld) [Ratio] 0 % 0-5 [facility] Work Phone: MCHC Auto (RBC) [Mass/Vol]on 05-01-2022 MCHC (RBC) [Mass/Vol] 30.9 g/dL 32-36 [facility] Work Phone: No Panel Informationon 05-01 [place] Level 0.80 mmol/L 0.60-1.20 [facility] Work Phone: Vitamin D 25-Hydroxy 66.5 ng/mL [facility] Work Phone: Comment on above: Vitamin D 25(OH) Sta tus Range Deficiency <20 ng/mL (50nmol/L) Insufficiency 20 - 30 ng/mL (50 - 75 nmol/L) Sufficiency 30 - 100 ng/mL (75 - 250 nmol/L) Toxicity >100 ng/mL (>250 nmol/L) Estimated GFR (MDRD) Amer 97 mL/min >60 [facility] Work Phone: Comment on above: GFR Calc Estimated GFR (MDRD) Non-Af Amer 80 mL/min >60 [facility] Work Phone: Comment on above: Non- GFR Calc Thyroid Stimulating Hormone (TSH) 0.44 uIU/mL 0.358-3.74 [facility] Work Phone: Platelets bldon 05-01-2022 Platelets (Bld) [#/Vol] 429 10*3/uL 150-450 [facility] Work Phone: Serum or plasma albumin kain urement (mass/volume)on 05-01-2022 Albumin [Mass/Vol] 3.7 g/dL 3.2-5.0 [facility] Work Phone: Serum or plasma albumin/glob ulin mass ratioon 05-01-2022 Albumin/Globulin [Mass ratio] 1.0 {ratio} 0.9-2.4 [facility] Work Phone: Serum or plasma calcium kain urement (mass/volume)on 05-01-2022 Calcium [Mass/Vol] 9.2 mg/dL 8.5-10.1 [facility] Work Phone: Serum or plasma cholesterol in HDL measurement (mass/volume)on 05-01-2022 Cholesterol in HDL [Mass/Vol] 47 mg/dL >40 [facility] Work Phone: Comment on above: The drugs N-Acetylcy steine and Metamizole may falsely depress this assay. Reference Range HDL <40 mg/dL Low HDL Cholesterol HDL >or= 60 mg/dL High HDL Cholesterol Serum or plasma cholesterol in VLDL measurement (mass/volume)on 05-01-2022 Cholesterol in VLDL [Mass/Vol] 31 mg/dL 5-40 [facility] Work Phone: Serum or plasma creatinine m easurement (mass/volume)on 05-01-2022 Creatinine [Mass/Vol] 1.09 mg/dL 0.70-1.30 [facility] Work Phone: Comment on above: The validity of the calculated GFR & GFRAA in patients over 70 years has not been determined. Clinical correlation is essential. Serum or plasma low density lipoprotein (LDL) cholesterol measurement (mass/volume)on 05-01-2022 Cholesterol in LDL [Mass/Vol] 55 mg/dL 0-130 [facility] Work Phone: Serum or plasma urea nitroge n measurement (mass/volume)on 05-01-2022 Urea nitrogen [Mass/Vol] 23 mg/dL 7-18 [facility] Work Phone: Thin prep Papanicolaou smear with manual screeningon 05-01-2022 Thin prep Papanicolaou smear with manual screening 47 U/L 15-37 [facility] Work Phone: Thin prep Papanicolaou smear with manual screening 6 5-15 [facility] Work Phone: Whole blood hemoglobin A1c/t otal hemoglobin ratio (mass fraction)on 05-01-2022 HbA1c (Bld) [Mass fraction] 9.7 % 3.8-5.6 [facility] Work Phone: Comment on above: Normal < 5.7 % Predi abetic 5.7 - 6.4 % Diabetic >or= 6.5 % Please note range changes. Office Visit: UC: [email or web address] 0 07-31-2017 Documentation of current medications (procedure) Done Invalid Interpretation Code [facility] Work Phone: Fall risk assessment No [facility] Work Phone: Protein mass conc Done [facility] Work Phone: Tobacco smoking status NHIS Never [facility] Work Phone: Tobacco smoking status NHIS Never smoker [facility] Work Phone: Tobacco use CPHS Never smoker Invalid Interpretation Code [facility] Work Phone: Vital Signs Date Time Vital Sign Value Performing Clinician Erna verdin 04-06-2025 17:53-0400 Body height 177.[address] Denise Reyes MD Work Phone: [facility] 04-06-2025 17:53-0400 Body mass index (BMI) [Ratio] 24.1 kg/m2 Dr. Denise Reyes MD Work Phone: [facility] 04-06-2025 17:53-0400 Body temperature 98.1 [degF] Dr. Denise Reyes MD Work Phone: [facility] 04-06-2025 17:53-0400 Body weight 76.[address] Denise Reyes MD Work Phone: [facility] 04-06-2025 17:53-0400 Diastolic blood pressure 86 mm[Hg] Dr. Denise Reyes MD Work Phone: [facility] 04-06-2025 17:53-0400 Heart rate 95 /min Dr. Denise Reyes MD Work Phone: [facility] 04-06-2025 17:53-0400 Respiratory rate 19 /min Dr. Denise Reyes MD Work Phone: [facility] 04-06-2025 17:53-0400 SaO2% (BldA) [Mass fraction] 97 % Dr. Denise Reyes MD Work Phone: [facility] 04-06-2025 17:53-0400 Systolic blood pressure 109 mm[Hg] Dr. Denise Reyes MD Work Phone: [facility] 12-20-2024 00:29-0500 Body temperature 98.7 [degF] Dr. Denise Reyes MD Work Phone: [facility] 12-20-2024 00:29-0500 Diastolic blood pressure 86 mm[Hg] Dr. Denise Reyes MD Work Phone: [facility] 12-20-2024 00:29-0500 Heart rate 86 /min Dr. Denise Reyes MD Work Phone: [facility] 12-20-2024 00:29-0500 Respiratory rate 16 /min Dr. Denise Reyes MD Work Phone: [facility] 12-20-2024 00:29-0500 SaO2% (BldA) [Mass fraction] 96 % Dr. Denise Reyes MD Work Phone: [facility] 12-20-2024 00:29-0500 Systolic blood pressure 136 mm[Hg] Dr. Denise Reyes MD Work Phone: [facility] 12-19-2024 21:25-0500 Body mass index (BMI) [Ratio] 24 kg/m2 Dr. Denise Reyes MD Work Phone: [facility] 12-19-2024 21:25-0500 Body weight 76.[address] Denise Reyes MD Work Phone: [facility] 01-31-2024 14:45-0400 Body height 180.[address] Denise Reyes Work Phone: [facility] 01-31-2024 14:45-0400 Body mass index (BMI) [Ratio] 25.7 kg/m2 Dr. Denise Reyes Work Phone: [facility] 01-31-2024 14:45-0400 Body temperature 98.9 [degF] Dr. Denise Reyes Work Phone: [facility] 01-31-2024 14:45-0400 Body weight 83.[address] Denise Reyes Work Phone: [facility] 01-31-2024 14:45-0400 Diastolic blood pressure 81 mm[Hg] Dr. Denise Reyes Work Phone: [facility] 01-31-2024 14:45-0400 Heart rate 95 /min Dr. Denise Reyes Work Phone: [facility] 01-31-2024 14:45-0400 SaO2% (BldA) [Mass fraction] 97 % Dr. Denise Reyes Work Phone: [facility] 01-31-2024 14:45-0400 Systolic blood pressure 114 mm[Hg] Dr. Denise Reyes Work Phone: [facility] 12-24-2023 10:43-0500 Body mass index (BMI) [Ratio] 24.5 kg/m2 Dr. Denise Reyes Work Phone: [facility] 12-24-2023 10:43-0500 Body temperature 98.8 [degF] Dr. Denise Reyes Work Phone: [facility] 12-24-2023 10:43-0500 Body weight 79.[address] Denise Reyes Work Phone: [facility] 12-24-2023 10:43-0500 Diastolic blood pressure 94 mm[Hg] Dr. Denise Reyes Work Phone: [facility] 12-24-2023 10:43-0500 Heart rate 74 /min Dr. Denise Reyes Work Phone: [facility] 12-24-2023 10:43-0500 Respiratory rate 16 /min Dr. Denise Reyes Work Phone: [facility] 12-24-2023 10:43-0500 SaO2% (BldA) [Mass fraction] 97 % Dr. Denise Reyes Work Phone: [facility] 12-24-2023 10:43-0500 Systolic blood pressure 140 mm[Hg] Dr. Denise Reyes Work Phone: [facility] 05-02-2023 13:48-0400 Body height 180.[address] Denise Reyes Work Phone: [facility] 05-02-2023 13:48-0400 Body mass index (BMI) [Ratio] 25.9 kg/m2 Dr. Denise Reyes Work Phone: [facility] 05-02-2023 13:48-0400 Body temperature 98.2 [degF] Dr. Denise Reyes Work Phone: [facility] 05-02-2023 13:48-0400 Body weight 84.[address] Denise Reyes Work Phone: [facility] 05-02-2023 13:48-0400 Diastolic blood pressure 68 mm[Hg] Dr. Denise Reyes Work Phone: [facility] 05-02-2023 13:48-0400 Heart rate 86 /min Dr. Denise Reyes Work Phone: [facility] 05-02-2023 13:48-0400 Respiratory rate 16 /min Dr. Denise Reyes Work Phone: [facility] 05-02-2023 13:48-0400 SaO2% (BldA) [Mass fraction] 97 % Dr. Denise Reyes Work Phone: [facility] 05-02-2023 13:48-0400 Systolic blood pressure 120 mm[Hg] Dr. Denise Reyes Work Phone: [facility] 01-25-2023 13:49-0400 Body temperature 98.2 [degF] Dr. Denise Reyes Work Phone: [facility] 01-25-2023 13:49-0400 Body weight 85.[address] Denise Reyes Work Phone: [facility] 01-25-2023 13:49-0400 Diastolic blood pressure 80 mm[Hg] Dr. Denise Reyes Work Phone: [facility] 01-25-2023 13:49-0400 Heart rate 100 /min Dr. Denise Reyes Work Phone: [facility] 01-25-2023 13:49-0400 Respiratory rate 16 /min Dr. Denise Reyes Work Phone: [facility] 01-25-2023 13:49-0400 SaO2% (BldA) [Mass fraction] 95 % Dr. Denise Reyes Work Phone: [facility] 01-25-2023 13:49-0400 Systolic blood pressure 127 mm[Hg] Dr. Denise Reyes Work Phone: [facility] 10-19-2022 13:48-0500 Body height 180.[address] Denise Reyes Work Phone: [facility] Work Phone: 10-19-2022 13:48-0500 Body mass index (BMI) [Ratio] 26.1 kg/m2 Dr. Denise Reyes Work Phone: [facility] Work Phone: 10-19-2022 13:48-0500 Body temperature 96.7 [degF] Dr. Denise Reyes Work Phone: [facility] Work Phone: 10-19-2022 13:48-0500 Body weight 84.[address] Denise Reyes Work Phone: [facility] Work Phone: 10-19-2022 13:48-0500 Diastolic blood pressure 85 mm[Hg] Dr. Denise Reyes Work Phone: [facility] Work Phone: 10-19-2022 13:48-0500 Heart rate 86 /min Dr. Denise Reyes Work Phone: [facility] Work Phone: 10-19-2022 13:48-0500 Respiratory rate 18 /min Dr. Denise Reyes Work Phone: [facility] Work Phone: 10-19-2022 13:48-0500 SaO2% (BldA) [Mass fraction] 96 % Dr. Denise Reyes Work Phone: [facility] Work Phone: 10-19-2022 13:48-0500 Systolic blood pressure 125 mm[Hg] Dr. Denise Reyes Work Phone: [facility] Work Phone: 07-27-2022 11:22-0400 Body mass index (BMI) [Ratio] 27.3 kg/m2 Dr. Denise Reyes Work Phone: [facility] Work Phone: 07-27-2022 11:22-0400 Body temperature 96.7 [degF] Dr. Denise Reyes Work Phone: [facility] Work Phone: 07-27-2022 11:22-0400 Body weight 88.[address] Denise Reyes Work Phone: [facility] Work Phone: 07-27-2022 11:22-0400 Diastolic blood pressure 77 mm[Hg] Dr. Denise Reyes Work Phone: [facility] Work Phone: 07-27-2022 11:22-0400 Heart rate 95 /min Dr. Denise Reyes Work Phone: [facility] Work Phone: 07-27-2022 11:22-0400 Respiratory rate 18 /min Dr. Denise Reyes Work Phone: [facility] Work Phone: 07-27-2022 11:22-0400 SaO2% (BldA) [Mass fraction] 97 % Dr. Denise Reyes Work Phone: [facility] Work Phone: 07-27-2022 11:22-0400 Systolic blood pressure 111 mm[Hg] Dr. Denise Reyes Work Phone: [facility] Work Phone: 07-31-2017 15:47-0400 BMI (Body Mass Index) 34.45 kg/m2 Macy Salinas LPN [facility] Work Phone: 07-31-2017 15:47-0400 Body Temperature 97.7 [degF] Macy Salinas LPN [facility] Work Phone: 07-31-2017 15:47-0400 BP Diastolic 98 mm[Hg] Macy Salinas LPN [facility] Work Phone: 07-31-2017 15:47-0400 BP Systolic 142 mm[Hg] Macy Salinas LPN [facility] Work Phone: 07-31-2017 15:47-0400 Height 180.34 cm Macy Salinas LPN [facility] Work Phone: 07-31-2017 15:47-0400 Pulse (Heart Rate) 90 /min Macy Salinas LPN [facility] Work Phone: 07-31-2017 15:47-0400 Respiratory Rate 14 /min Macy Salinas LPN [facility] Work Phone: 07-31-2017 15:47-0400 Weight 112.04 kg Macy Salinas LPN [facility] Work Phone: Encounters Encounter Date Encounter Type Care Provider Facility Start: 04-06-2025 End: 04-06-2025 Emergency department patient visit Dr. Denise Reyes MD Work Phone: -Emergency Department Work Phone: Start: 04-03-2025 End: 04-03-[address] Denise Reyes MD Work Phone: [facility] Work Phone: Start: 04-03-2025 End: 04-03-[address] Denise Reyes MD -Laboratory [facility] Start: 04-03-2025 End: 04-03-2025 ambulatory Denise Reyes Facility:[facility] Start: 02-02-2025 ambulatory Denise Reyes [facility] y:[facility] Start: 01-30-2025 End: 01-30-[address] Denise Reyes MD -Laboratory [facility] Start: 01-30-2025 End: 01-30-2025 ambulatory Denise Reyes Facility:[facility] Start: 12-19-2024 End: 12-20-2024 Emergency department patient visit Jorge Alberto Durand -Emergency Department Work Phone: Start: 12-19-2024 End: 12-19-[address] Denise Reyes MD -[facility] Start: 12-19-2024 End: 12-19-2024 ambulatory Denise Reyes Facility:[facility] Start: 11-13-2024 End: 11-13-2024 ambulatory Denise Reyes Facility:[facility] Start: 10-13-2024 End: 10-13-2024 ambulatory Neha O'Babak PT [facility] Comment on above: Weakness of left low er extremity (Primary Dx) Start: 10-10-2024 End: 10-10-2024 ambulatory Denise Reyes Facility:[facility] Start: 10-06-2024 End: 10-06-2024 ambulatory Neha O'Babak PT [facility] Comment on above: Weakness of left low er extremity (Primary Dx) Start: 2024 End: 2024 ambulatory Hannah Leger [employer] Work Phone: [facility] Comment on above: Weakness of left low er extremity (Primary Dx) Start: 09-22-2024 End: 09-22-2024 ambulatory McKena Thoennes PT, DPT [facility] Comment on above: Weakness of left low er extremity (Primary Dx) Start: 09-15-2024 End: 09-15-2024 ambulatory McKena Thoennes PT, DPT [facility] Comment on above: Weakness of left low er extremity (Primary Dx) Start: 09-08-2024 End: 09-08-2024 ambulatory McKena Thoennes PT, DPT [facility] Comment on above: Weakness of left low er extremity (Primary Dx) Start: 09-01-2024 End: 09-01-2024 ambulatory Neha O'Babak PT [facility] Comment on above: Weakness of left low er extremity (Primary Dx) Start: 08-25-2024 End: 08-25-2024 ambulatory Neha O'Babak PT [facility] Comment on above: Weakness of left low er extremity (Primary Dx) Start: 08-22-2024 End: 08-22-2024 ambulatory Denise Reyes Facility:[facility] Start: 08-11-2024 End: 08-11-2024 ambulatory Neha O'Babak PT [facility] Comment on above: Weakness of left low er extremity (Primary Dx) Start: 07-30-2024 End: 07-30-2024 ambulatory Neha O'Babak PT [facility] Comment on above: Weakness of left low er extremity (Primary Dx) Start: 06-12-2024 End: 06-12-2024 ambulatory Denise Reyes Facility:[facility] Start: 05-23-2024 End: 05-23-2024 ambulatory Denise Reyes Facility:[facility] Start: 05-15-2024 End: 05-15-2024 ambulatory William Owens Facility:[facility] Start: 05-13-2024 End: 05-13-2024 ambulatory Denise Reyes Facility:[facility] Start: 02-21-2024 End: 02-21-[address] Denise Reyes Work Phone: [facility] Work Phone: Start: 02-21-2024 End: 02-21-[address] Denise Reyse Work Phone: [facility] Work Phone: Start: 01-31-2024 End: 01-31-[address] Denise Reyes Work Phone: [facility] Work Phone: Start: 01-28-2024 End: 01-28-[address] Denise Reyes Work Phone: [facility] Work Phone: Start: 12-24-2023 End: 12-24-[address] Denise Reyes Work Phone: [facility] Work Phone: Start: 09-24-2023 End: 09-24-[address] Denise Reyes Work Phone: [facility] Work Phone: Start: 09-24-2023 End: 09-24-[address] Denise Reyes Work Phone: [facility] Work Phone: Start: 05-02-2023 End: 05-02-[address] Denise Reyes Work Phone: [facility] Work Phone: Start: 05-02-2023 End: 05-02-[address] Denise Reyes Work Phone: [facility] Work Phone: Start: 05-02-2023 End: 05-02-[address] Denise Reyes Work Phone: [facility] Work Phone: Start: 01-25-2023 End: 01-25-[address] Denise Reyes Work Phone: [facility] Work Phone: Start: 10-19-2022 End: 10-19-[address] Denise Reyes Work Phone: [facility] Work Phone: Start: 10-19-2022 End: 10-19-[address] Denise Reyes Work Phone: [facility] Start: 07-27-2022 End: 07-27-[address] Denise Reyes Work Phone: [facility] Start: 05-01-2022 End: 05-01-2022 Patient encounter procedure [facility] Start: 12-10-2018 Patient encounter procedure BERNICE SWENSON Facility:[facility] Procedures Date Procedure Procedure Detail Performing Clinician Start: 04-06-[address] Denise Reyes MD Work Phone: Start: 04-03-2025 Urine microalbumin/creatinine ratio measurement Dr. Denise Reyes MD Work Phone: Start: 04-03-2025 Vitamin D, 25-hydrox y measurement Dr. Denise Reyes MD Work Phone: Comment on above: Vitamin D StatusDefi ciency: <20 ng/mL (50nmol/L)Insufficiency: 20-30 ng/mL (50-75 nmol/L)Sufficiency: 30-100 ng/mL (75-250 nmol/L)Toxicity: >100 ng/mL (>250 nmol/L) Start: 01-30-2025 Urine microalbumin/creatinine ratio measurement Dr. Denise Reyes MD Work Phone: Start: 01-30-2025 Vitamin D, 25-hydrox y measurement Dr. Denise Reyes MD Work Phone: Comment on above: Vitamin D StatusDefi ciency: <20 ng/mL (50nmol/L)Insufficiency: 20-30 ng/mL (50-75 nmol/L)Sufficiency: 30-100 ng/mL (75-250 nmol/L)Toxicity: >100 ng/mL (>250 nmol/L) Start: 12-19-2024 US scan of gallbladder Dr. Denise Reyes MD Work Phone: Start: 12-19-2024 Hepatitis A virus antibody, IgM type Dr. Denise Reyes MD Work Phone: Comment on above: A negative anti-HAV IgM result suggests no recent orcurrent HAV infection. Start: 12-19-2024 Hepatitis B core ant ibody measurement, IgM type Dr. Denise Reyes MD Work Phone: Start: 12-19-2024 Hepatitis C antibody measurement Dr. Denise Reyes MD Work Phone: Start: 12-19-[address] Denise Reyes MD Work Phone: Comment on above: Moderate Hemolysis, Result may be falsely increased. Start: 12-19-2024 Computed tomography of abdomen and pelvis with intravenous contrast Dr. Denise Reyes MD Work Phone: Start: 12-19-[address] Denise Reyes MD Work Phone: Start: 12-19-2024 Measurement of renal function Dr. Denise Reyes MD Work Phone: Comment on above: GFR Calc Start: 12-19-2024 Measurement of renal function Dr. Denise Ryees MD Work Phone: Comment on above: GFR Calc Start: 12-19-[address] Denise Reyes MD Work Phone: Comment on above: Test not performed Start: 02-21-2024 Ultrasound elastogra phy of liver Dr. Denise Reyes Work Phone: Plan of Treatment Date Care Activity Detail Author Start: 03-28-2034 Urine microalbumin profile DTa P,Tdap,Td Vaccine (2 - Td or Tdap) [facility] Start: 12-20-2024 [facility] Start: 10-13-2024 End: 10-13-2024 ambulatory 10/13/2024 10:15 AM EST OT/PT/Speech Visit [facility] [address] [place] [address] ONeha Lundy, PT Weakness of left lower extremity [R29.898] [facility] Comment on above: Weakness of left low er extremity [R29.898] Start: 10-06-2024 End: 10-06-2024 ambulatory 10/06/2024 10:15 AM EST OT/PT/Speech Visit [facility] [address] [place] [address] Neha Driver, PT Weakness of left lower extremity [R29.898] [facility] Comment on above: Weakness of left low er extremity [R29.898] Start: 2024 End: 2024 ambulatory 2024 11:00 AM EST OT/PT/Speech Visit [facility] [address] [place] [address] Hannah Leger, MONOR[employer] HELPER [address] [place] [address] Weakness of left lower extremity [R29.898] [facility] Comment on above: Weakness of left low er extremity [R29.898] Start: 09-22-2024 End: 09-22-2024 ambulatory 09/22/2024 11:15 AM EST OT/PT/Speech Visit [facility] [address] [place] [address] ThSebastian poole, PT, DPT Weakness of left lower extremity [R29.898] [facility] Comment on above: Weakness of left low er extremity [R29.898] Start: 09-15-2024 End: 09-15-2024 ambulatory 09/15/2024 11:15 AM EST OT/PT/Speech Visit [facility] [address] [place] [address] ThoeLavonne escobedoa, PT, DPT Weakness of left lower extremity [R29.898] [facility] Comment on above: Weakness of left low er extremity [R29.898] Start: 09-01-2024 End: 09-01-2024 ambulatory 09/01/2024 10:15 AM EDT OT/PT/Speech Visit [facility] [address] [place] [address] O'Neha Hilliard, PT Leg weakness ( left) [facility] Comment on above: Leg weakness ( left) Start: 08-25-2024 End: 08-25-2024 ambulatory 08/25/2024 10:15 AM EDT OT/PT/Speech Visit [facility] [address] [place] [address] O'Neha Hilliard, PT Leg weakness ( left) [facility] Comment on above: Leg weakness ( left) Start: 08-18-2024 End: 08-18-2024 ambulatory 08/18/2024 12:30 PM EDT OT/PT/Speech Visit [facility] [address] [place] [address] Hannah Leger, MONORAIL HELPER [address] [place] [address] Leg weakness ( left) [facility] Comment on above: Leg weakness ( left) Start: 08-11-2024 End: 08-11-2024 ambulatory 08/11/2024 8:45 AM EDT OT/PT/Speech Visit [facility] [address] [place] [address] O'BabakNeha lemon, PT Leg weakness ( left) [facility] Comment on above: Leg weakness ( left) Start: 02-21-2024 Acute hepatitis 2000 panel - Serum [facility] Start: 02-21-2024 Aldolase [Enzymatic activity/volume] in Serum or Plasma [facility] Start: 02-21-2024 Haptoglobin [Mass/vo lume] in Serum or Plasma [facility] Start: 02-21-2024 IgE [Units/volume] i n Serum or Plasma [facility] Start: 02-21-2024 Serum immunofixation [facility] Start: 02-21-2024 Smooth muscle Ab [Pr esence] in Serum [facility] Start: 01-28-2024 Patient referral [facility] Work Phone: Start: 09-24-2023 Angiotensin converti ng enzyme [Enzymatic activity/volume] in Serum or Plasma [facility] Start: 09-24-2023 Celiac disease screen [facility] Start: 09-24-2023 Ceruloplasmin [Mass/ volume] in Serum or Plasma [facility] Start: 09-24-2023 Copper [Moles/volume ] in Serum or Plasma [facility] Start: 09-24-2023 Haptoglobin [Mass/vo lume] in Serum or Plasma [facility] Start: 09-24-2023 Serum immunofixation [facility] Start: 09-24-2023 Smooth muscle Ab [Pr esence] in Serum [facility] Start: 09-24-2023 Transferrin [Mass/vo lume] in Serum or Plasma [facility] Start: 09-24-2023 [facility] Start: 2017 Lipid panel Lipid Screening [facility] Start: 07-31-2017 End: 07-31-2017 Appointment Appointment [facility] Work Phone: Start: 2001 Hepatitis B Vaccine (1 of 3 - 19+ 3-dose series) Hepatitis B Vaccine (1 of 3 - 19+ 3-dose series) [facility] Start: 2000 Anxiety Screening Anxiety Screening [facility] Start: 2000 Depression Screening Depression Scre [facility] Start: 2000 Hepatitis C screening Hepatitis C Sc [facility] Start: 2000 HIV screening HIV Screening [facility] Albumin [Moles/volum e] in Serum or Plasma [facility] Albumin [Moles/volum e] in Serum or Plasma [facility] Albumin/Globulin ratio [facility] Albumin/Globulin ratio [facility] Electrophoresis: [id number] [facility] Electrophoresis: [id number] [facility] Electrophoresis: flor ma globulin [facility] Electrophoresis: flor ma globulin [facility] Globulin measurement [facility] Globulin measurement [facility] Hepatitis A virus Ig M Ab [Presence] in Serum [facility] Hepatitis B core ant ibody measurement, IgM type [facility] Hepatitis B surface antigen measurement [facility] Hepatitis C antibody measurement [facility] IgA [Mass/volume] in Serum or Plasma [facility] IgA [Mass/volume] in Serum or Plasma [facility] IgG [Mass/volume] in Serum or Plasma [facility] IgG [Mass/volume] in Serum or Plasma [facility] IgM [Mass/volume] in Serum or Plasma [facility] IgM [Mass/volume] in Serum or Plasma [facility] Measurement of immunoglobulin A in serum specimen [facility] Neutrophil cytoplasm ic Ab.classic [Units/volume] in Serum [facility] P-ANCA measurement [facility] Patient Education [facility] Work Phone: Patient referral [facility] Work Phone: Protein electrophore sis panel - Serum or Plasma [facility] Protein electrophore sis panel - Serum or Plasma [facility] Tissue transglutamin ase IgA Ab [Units/volume] in Serum [facility] Payers Date Payer Category Payer Medicaid [id number] 2024 Self-pay [id number] 2018 Medicare [id number] 2012 Medicare MEDICARE MEDICAR E A AND B [id number] 2012-Present [phone] [address] [address] [place] [address] Medicare [id number] 2012 Medicare [id number] 1982 Unknown [id number] Unknown [id number] Unknown [id number] Unknown [id number] Unknown [id number] Unknown [id number] Unknown [id number] Unknown [id number] Unknown [id number] Unknown [id number] Unknown [id number] Unknown [id number] Unknown [id number] Unknown [id number] Unknown [id number] Social History Date Type Detail Facility Start: 05-02-2021 End: 01-31-2024 Tobacco smoking status NHIS Unknown if ever smoked [facility] Start: 1980 Sex Assigned At Male [facility] Start: 1980 Sex assigned at Not on file [facility] Start: 08-11-2024 End: 10-13-2024 Gender identity Not on file [facility] Start: 08-11-2024 End: 10-13-2024 History of Social function [facility] National Score (1-10 0), lower number is lower risk 62 [facility] Start: 12-19-2024 Tobacco smoking stat us NHIS Never smoked tobacco (finding) [facility] Medical Equipment Procedure Code Equipment Code Equipment Origin al Text Equipment Identifier Dates Pen Needle, Diab etic (Bd Ultra-Fine Hilary Pen Needle) 32 gauge x 5/32 needle Start: 01-26-2023 Pen Needle, Diab etic (Bd Ultra-Fine Hilary Pen Needle) 32 gauge x 5/32 needle Start: 01-26-2023 Pen Needle, Diab etic (Bd Ultra-Fine Hilary Pen Needle) 32 gauge x 5/32 needle Start: 01-26-2023 Pen Needle, Diab etic (Bd Ultra-Fine Hilary Pen Needle) 32 gauge x 5/32 needle Start: 03-24-2024 Pen Needle, Diab etic (Bd Ultra-Fine Hilary Pen Needle) 32 gauge x 5/32 needle Start: 01-26-2023 End: 03-24-2024 Pen Needle, Diab etic (Bd Ultra-Fine Hilary Pen Needle) 32 gauge x 5/32 needle Start: 03-24-2024 Pen Needle, Diab etic (Bd Ultra-Fine Hilary Pen Needle) 32 gauge x 5/32 needle Start: 01-26-2023 End: 03-24-2024 Mental Status Date Assessment Result Facility 12-19-2024 Cognitive function Level Of Cons ciousness Awake;Alert;Appropriate;Follow s Commands [facility] Work Phone: Clinical Notes 07-30-2024 to 10-13-2024 Neha Driver, PT - 10/13/2024 10:04 AM Neha Thomas PT - 10/06/2024 10:13 AM Neha Thomas PT - 2024 10:59 AM Sebastian Gay PT, DPT - 09/22/2024 11:19 AM EST Note Date & Type Note Facility 10-13-2024 Note HNO ID: [id number] Author: NEHA DRIVER PT Service: ? Author Type: Physical Therapist Type: Progress Notes Filed: 10/13/2024 10:45 Note Text: Episode Visit Count: 10 Therapist That Will Accept/Oversee The Plan Of Care: Neha Driver Start of Care Date: 07/30/24 Onset Date: 04/29/24 Plan of Care Certification Date: 10/13/24 Next Certification Due Date: 10/13/24 REHABILITATION AND SPORTS THERAPY PHYSICAL THERAPY DISCONTINUANCE OF CARE PLAN OF CARE UPDATE: Assessment: Danny Heath is discontinued from Physical Therapy services due to goal achievement and maximal benefit.. Patient was seen for 10 visits from Start of Care Date: 07/30/24 to 10/13/2024 and treatment included: Therapeutic exercise, Neuromuscular re-education, Therapeutic activities, Self-long-term management, and Gait training. Goals for Episode of Care: established 07/30/24 Goals updated on 09/01/2024. Goals updated on 10/13/2024. [place] in home exercise program.-- MET Patient will decrease pain to 1-2/10 with functional activities to allow patient to improve ambulation, transfers, and standing tolerance for ADLs. -- MET Patient will increase active ROM of bilateral knee extension to 0 degrees extension to allow pt to to improve postural alignment, to improve performance of ADLs, to improve gait mechanics / gait pattern , and to decrease falls risks . -- PARTIALLY MET Patient will demonstrate increase in Lquadriceps strength to 4/5 during manual muscle testing in order to improve function for prior functional tasks. -- PARTIALLY MET Normal gait. -- PARTIALLY MET, requires cues to reduce trunk sway Reciprocal stair negotiation. -- MET Patient Goals: walking up and down stairs with reduced L knee pain. -- MET SUBJECTIVE: Denies falls. States that stair negociation has been going well. Only using 1 hand on the handrail. Denies feeling any symptoms at all in the thigh.. Patient Goals: walking up and down stairs with reduced L knee pain. Functional Limitations: stair negotiation, weight bearing Pain: Pain Pain Level: 0 Pain Location: Thigh - Left Post Treatment Pain Post Treatment Pain Level: No Change Post Treatment Pain Location: Knee - Left PROMIS Scales 09/21/2024 08/25/2024 07/27/2024 Higher is Better Phys Func - Score 29 (severe dysfunction) 34 (moderate dysfunction) 33 (moderate dysfunction) Phys Func - Percentile 2 5 4 Self-Eff Symptom - Score 35 (Low) 39 (Low) 40 (Average) Self-Eff Symptom - Percentile 7 14 16 T-scores: mean of general population = 50. 5 points is clinically meaningfully difference Percentiles provide an indication of how the patient's score ranks in relation to the general population. Higher percentile rankings indicate better function/quality of life. 50th percentile is the average of the general population and indicates half of respondents had a worse score. OBJECTIVE MEASURES WITH LEVEL OF FUNCTION: LE AROM R Knee Extension: -5 Degrees L Knee Extension: -5 Degrees LE Strength R Knee Extension (L3): 3-/5 L Knee Extension (L3): 3-/5 Gait Gait: Independent Gait Distance (feet): 80 Gait Device: None Gait Deviations: General Deviations Gait Observation: slight trunk sway greater to the R TREATMENT: Therapeutic Exercise: 1: scifit stepper, seat 15, 1:1 throughout, subjective collected, level 3 5 min 2: unilateral KB #10 step ups with x1 UE support on // bars 2x15 each side (pt. reports increased fatigue LLE lead as compared to RLE) 3: prostretch 5x15 sec each side 4: seated LAQ 2x12 R and L (requires encouragement to fully extend the knees) 5: STS 3x4, without arm rests but pt .opts to push on the BLE with BUE Skilled Intervention: Patient was educated in proper exercise technique and purpose for exercises. Skilled judgment was used in selection of appropriate interventions. Correct performance of therapeutic exercises was facilitated with verbal, visual, and tactile cuing. Educated patient on rationale for performing exercises in regards to decreasing fatigue , increase ease of ADL, and ROM and function . Patient education as noted. Neuromuscular Re-Education: 1: farmers carries unilateral #10 KB R arm 40' + L arm 40' 4x each side 2: lateral BOSU ball step ups 2x15 each side Skilled Intervention: Skilled judgment used to assess appropriate program for balance and coordination activity. Education in proprioceptive/kinesthetic awareness during dynamic activities. Patient education as noted. Gait Training: Distance (feet): 160 8x Gait Cues: uprigth posture, minimize trunk sway Assistive Device: none Assist Level: verbal cues only Stair Training: ascend and descend 4x6 therapy steps x 6 sets , 2 sets with B UE support, 2 sets with x1 UE support, and 3rd set with no UE support - each reciprocal pattern ascending and descending Skilled Intervention: Patient was provided supervision during pre-gait/gait kirsten (more content not included)... [facility] 10-13-2024 History of Present illness Narrative Images from the original note were not included. Episode Visit Count: 10 Therapist That Will Accept/Oversee The Plan Of Care: Neha Driver Start of Care Date: 07/30/24 Onset Date: 04/29/24 Plan of Care Certification Date: 10/13/24 Next Certification Due Date: 10/13/24 REHABILITATION AND SPORTS THERAPY PHYSICAL THERAPY DISCONTINUANCE OF CARE PLAN OF CARE UPDATE: Assessment: Danny Heath is discontinued from Physical Therapy services due to goal achievement and maximal benefit.. Patient was seen for 10 visits from Start of Care Date: 07/30/24 to 10/13/2024 and treatment included: Therapeutic exercise, Neuromuscular re-education, Therapeutic activities, Self-long-term management, and Gait training. Goals for Episode of Care: established 07/30/24 Goals updated on 09/01/2024. Goals updated on 10/13/2024. [place] in home exercise program.-- MET Patient will decrease pain to 1-2/10 with functional activities to allow patient to improve ambulation, transfers, and standing tolerance for ADLs. -- MET Patient will increase active ROM of bilateral knee extension to 0 degrees extension to allow pt to to improve postural alignment, to improve performance of ADLs, to improve gait mechanics / gait pattern , and to decrease falls risks . -- PARTIALLY MET Patient will demonstrate increase in Lquadriceps strength to 4/5 during manual muscle testing in order to improve function for prior functional tasks. -- PARTIALLY MET Normal gait. -- PARTIALLY MET, requires cues to reduce trunk sway Reciprocal stair negotiation. -- MET Patient Goals: walking up and down stairs with reduced L knee pain. -- MET SUBJECTIVE: Denies falls. States that stair negociation has been going well. Only using 1 hand on the handrail. Denies feeling any symptoms at all in the thigh.. Patient Goals: walking up and down stairs with reduced L knee pain. Functional Limitations: stair negotiation, weight bearing Pain: Pain Pain Level: 0 Pain Location: Thigh - Left Post Treatment Pain Post Treatment Pain Level: No Change Post Treatment Pain Location: Knee - Left PROMIS Scales 09/21/2024 08/25/2024 07/27/2024 Higher is Better Phys Func - Score 29 (severe dysfunction) 34 (moderate dysfunction) 33 (moderate dysfunction) Phys Func - Percentile 2 5 4 Self-Eff Symptom - Score 35 (Low) 39 (Low) 40 (Average) Self-Eff Symptom - Percentile 7 14 16 T-scores: mean of general population = 50. 5 points is clinically meaningfully difference Percentiles provide an indication of how the patient's score ranks in relation to the general population. Higher percentile rankings indicate better function/quality of life. 50th percentile is the average of the general population and indicates half of respondents had a worse score. OBJECTIVE MEASURES WITH LEVEL OF FUNCTION: LE AROM R Knee Extension: -5 Degrees L Knee Extension: -5 Degrees LE Strength R Knee Extension (L3): 3-/5 L Knee Extension (L3): 3-/5 Gait Gait: Independent Gait Distance (feet): 80 Gait Device: None Gait Deviations: General Deviations Gait Observation: slight trunk sway greater to the R TREATMENT: Therapeutic Exercise: 1: scifit stepper, seat 15, 1:1 throughout, subjective collected, level 3 5 min 2: unilateral KB #10 step ups with x1 UE support on // bars 2x15 each side (pt. reports increased fatigue LLE lead as compared to RLE) 3: prostretch 5x15 sec each side 4: seated LAQ 2x12 R and L (requires encouragement to fully extend the knees) 5: STS 3x4, without arm rests but pt .opts to push on the BLE with BUE Skilled Intervention: Patient was educated in proper exercise technique and purpose for exercises. Skilled judgment was used in selection of appropriate interventions. Correct performance of therapeutic exercises was facilitated with verbal, visual, and tactile cuing. Educated patient on rationale for performing exercises in regards to decreasing fatigue , increase ease of ADL, and ROM and function . Patient education as noted. Neuromuscular Re-Education: 1: farmers carries unilateral #10 KB R arm 40' + L arm 40' 4x each side 2: lateral BOSU ball step ups 2x15 each side Skilled Intervention: Skilled judgment used to assess appropriate program for balance and coordination activity. Education in proprioceptive/kinesthetic awareness during dynamic activities. Patient education as noted. Gait Training: Distance (feet): 160 8x Gait Cues: uprigth posture, minimize trunk sway Assistive Device: none Assist Level: verbal cues only Stair Training: ascend and descend 4x6 therapy steps x 6 sets , 2 sets with B UE support, 2 sets with x1 UE support, and 3rd set with no UE support - each reciprocal pattern ascending and descending Skilled Intervention: Patient was provided supervision during pre-gait/gait training to prevent falls and insure safety. Correct performance of home program was facilitated with verbal and visual cueing. Billing Therapeutic Exercise Treatment Minutes: 15 Neuromuscular Re-Education Treatment Minutes: 15 Gait Training Treatment Minutes: 10 Skilled Treatment Time Minutes (timed and untimed codes): 40 Total Session Time (minutes): 40 Session Start Time : 1005 Session Stop Time : 1045 Neha Driver PT documented in this encounter [facility] 10-06-2024 Note HNO ID: [id number] Author: NEHA DRIVER PT Service: ? Author Type: Physical Therapist Type: Progress Notes Filed: 10/06/2024 10:51 Note Text: Episode Visit Count: 9 Therapist That Will Accept/Oversee The Plan Of Care: Neha Driver Start of Care Date: 07/30/24 Onset Date: 04/29/24 Plan of Care Certification Date: 09/01/24 Next Certification Due Date: 10/13/24 REHABILITATION AND SPORTS THERAPY PHYSICAL THERAPY TREATMENT NOTE ASSESSMENT: Danny Heath tolerated the session with no issues. He demonstrated difficulty with BOSU ball step ups when leading with the LLE. The patient will continue to benefit from ongoing skilled physical therapy to progress toward set goals. PLAN FOR NEXT VISIT: DC - pt. reports that he would like to be done due to now doing steps without being dependent on the HR SUBJECTIVE: Pressure in the L upper thigh felt with going up step, otherwise its not that bad and pt. states I don't call it pain, Pain: Pain Pain Level: (does not rate, states it's not bad, only feels it with steps) Pain Location: Thigh - Left Description: Pressure Post Treatment Pain Post Treatment Pain Level: No Change Post Treatment Pain Location: Knee - Left OBJECTIVE MEASURES WITH LEVEL OF FUNCTION: TREATMENT: Therapeutic Exercise: 1: scifit stepper, seat 15, 1:1 throughout, subjective collected, level 3 5 min 2: seated HS stretch 3x30 sec each side 3: standing HS curls 2x12 each side at // bars 4: standing hip abd 2x12 each side at // bars 5: standing hip ext 2x12 each side at // bars (cues to keep the knee straight) Skilled Intervention: Patient was educated in proper exercise technique and purpose for exercises. Skilled judgment was used in selection of appropriate interventions. Correct performance of therapeutic exercises was facilitated with verbal and visual cuing. Educated patient on rationale for performing exercises in regards to decreasing fatigue , including balance, increase ease of ADL, and ROM and function . Patient education as noted. Neuromuscular Re-Education: 1: mini squats on foam, 3x15 (1st set with BUE, 2nd with x1 UE, 3rd set without UE support) 2: BOSU ball step ups fwd BUE // bars 1x15 each (more difficulty with LLE lead vs. RLE) 3: BOSU ball lateral step ups 1x15 each side lead, BUE at // bars. Skilled Intervention: Skilled judgment used to assess appropriate program for balance and coordination activity. Education in proprioceptive/kinesthetic awareness during dynamic activities. Ensured patient safety with use of // bars. Patient education as noted. Billing Therapeutic Exercise Treatment Minutes: 25 Neuromuscular Re-Education Treatment Minutes: 15 Skilled Treatment Time Minutes (timed and untimed codes): 40 Total Session Time (minutes): 40 Session Start Time : 1012 Session Stop Time : 1052 Neha Driver, PT [facility] 10-06-2024 History of Present illness Narrative Episode Visit Count: 9 Therapist That Will Accept/Oversee The Plan Of Care: Neha Driver Start of Care Date: 07/30/24 Onset Date: 04/29/24 Plan of Care Certification Date: 09/01/24 Next Certification Due Date: 10/13/24 REHABILITATION AND SPORTS THERAPY PHYSICAL THERAPY TREATMENT NOTE ASSESSMENT: Danny Zac SyHeath tolerated the session with no issues. He demonstrated difficulty with BOSU ball step ups when leading with the LLE. The patient will continue to benefit from ongoing skilled physical therapy to progress toward set goals. PLAN FOR NEXT VISIT: DC - pt. reports that he would like to be done due to now doing steps without being dependent on the HR SUBJECTIVE: Pressure in the L upper thigh felt with going up step, otherwise its not that bad and pt. states I don't call it pain, Pain: Pain Pain Level: (does not rate, states it's not bad, only feels it with steps) Pain Location: Thigh - Left Description: Pressure Post Treatment Pain Post Treatment Pain Level: No Change Post Treatment Pain Location: Knee - Left OBJECTIVE MEASURES WITH LEVEL OF FUNCTION: TREATMENT: Therapeutic Exercise: 1: scifit stepper, seat 15, 1:1 throughout, subjective collected, level 3 5 min 2: seated HS stretch 3x30 sec each side 3: standing HS curls 2x12 each side at // bars 4: standing hip abd 2x12 each side at // bars 5: standing hip ext 2x12 each side at // bars (cues to keep the knee straight) Skilled Intervention: Patient was educated in proper exercise technique and purpose for exercises. Skilled judgment was used in selection of appropriate interventions. Correct performance of therapeutic exercises was facilitated with verbal and visual cuing. Educated patient on rationale for performing exercises in regards to decreasing fatigue , including balance, increase ease of ADL, and ROM and function . Patient education as noted. Neuromuscular Re-Education: 1: mini squats on foam, 3x15 (1st set with BUE, 2nd with x1 UE, 3rd set without UE support) 2: BOSU ball step ups fwd BUE // bars 1x15 each (more difficulty with LLE lead vs. RLE) 3: BOSU ball lateral step ups 1x15 each side lead, BUE at // bars. Skilled Intervention: Skilled judgment used to assess appropriate program for balance and coordination activity. Education in proprioceptive/kinesthetic awareness during dynamic activities. Ensured patient safety with use of // bars. Patient education as noted. Billing Therapeutic Exercise Treatment Minutes: 25 Neuromuscular Re-Education Treatment Minutes: 15 Skilled Treatment Time Minutes (timed and untimed codes): 40 Total Session Time (minutes): 40 Session Start Time : 1012 Session Stop Time : 1052 Neha Driver PT documented in this encounter [facility] 2024 Note HNO ID: [id number] Author: NEHA DRIVER PT Service: ? Author Type: Physical Therapist Type: Progress Notes Filed: 2024 11:56 Note Text: Episode Visit Count: 8 Therapist That Will Accept/Oversee The Plan Of Care: Neha Driver Start of Care Date: 07/30/24 Onset Date: 04/29/24 Plan of Care Certification Date: 09/01/24 Next Certification Due Date: 10/13/24 Patient Identified by Name and Date of : Yes REHABILITATION AND SPORTS THERAPY PHYSICAL THERAPY TREATMENT NOTE ASSESSMENT: Danny Heath tolerated the session with fatigue and expected muscle soreness. He demonstrated improvements in LAQ with decreased weight, but increased reps. The patient will continue to benefit from ongoing skilled physical therapy to progress toward set goals. PLAN FOR NEXT VISIT: Continue with LE strengthening. Trial mini squats with UE support. SUBJECTIVE: Pt reports that he is feeling alright today. Pt denies any pain to start today's session. Pt states that he was able to complete some of his exercises at home. Pain: Pain Pain Level: 0 Pain Location: Knee - Left Post Treatment Pain Post Treatment Pain Level: No Change Post Treatment Pain Location: Knee - Left OBJECTIVE MEASURES WITH LEVEL OF FUNCTION: TREATMENT: Therapeutic Exercise: 1: seated Scifit seat 13, 5 min, level 3, 1:1 throughout, subjective collected 2: SLR 1x10 B 3: Seated LAQ verse 1.5# ankle weight 3x10 bilat, 4: leg press seat 6 #70 3x12 5: Seated hamstring and calf stretch with strap 3x30 sec 6: Seated HS curl with OTB x10 B Skilled Intervention: Patient was educated in proper exercise technique and purpose for exercises. Skilled judgment was used in selection of appropriate interventions. Correct performance of therapeutic exercises was facilitated with verbal and visual cuing. Billing Therapeutic Exercise Treatment Minutes: 40 Skilled Treatment Time Minutes (timed and untimed codes): 40 Total Session Time (minutes): 40 Session Start Time : 1057 Session Stop Time : 1137 Hannah Leger, [employer] Neha Driver, PT [facility] 2024 History of Present illness Narrative Episode Visit Count: 8 Therapist That Will Accept/Oversee The Plan Of Care: Neha Driver Start of Care Date: 07/30/24 Onset Date: 04/29/24 Plan of Care Certification Date: 09/01/24 Next Certification Due Date: 10/13/24 Patient Identified by Name and Date of : Yes REHABILITATION AND SPORTS THERAPY PHYSICAL THERAPY TREATMENT NOTE ASSESSMENT: Danny Heath tolerated the session with fatigue and expected muscle soreness. He demonstrated improvements in LAQ with decreased weight, but increased reps. The patient will continue to benefit from ongoing skilled physical therapy to progress toward set goals. PLAN FOR NEXT VISIT: Continue with LE strengthening. Trial mini squats with UE support. SUBJECTIVE: Pt reports that he is feeling alright today. Pt denies any pain to start today's session. Pt states that he was able to complete some of his exercises at home. Pain: Pain Pain Level: 0 Pain Location: Knee - Left Post Treatment Pain Post Treatment Pain Level: No Change Post Treatment Pain Location: Knee - Left OBJECTIVE MEASURES WITH LEVEL OF FUNCTION: TREATMENT: Therapeutic Exercise: 1: seated Scifit seat 13, 5 min, level 3, 1:1 throughout, subjective collected 2: SLR 1x10 B 3: Seated LAQ verse 1.5# ankle weight 3x10 bilat, 4: leg press seat 6 #70 3x12 5: Seated hamstring and calf stretch with strap 3x30 sec 6: Seated HS curl with OTB x10 B Skilled Intervention: Patient was educated in proper exercise technique and purpose for exercises. Skilled judgment was used in selection of appropriate interventions. Correct performance of therapeutic exercises was facilitated with verbal and visual cuing. Billing Therapeutic Exercise Treatment Minutes: 40 Skilled Treatment Time Minutes (timed and untimed codes): 40 Total Session Time (minutes): 40 Session Start Time : 1057 Session Stop Time : 1137 JESSE Garcia PT documented in this encounter [facility] 09-22-2024 Note HNO ID: [id number] Author: SEBASTIAN MARROQUIN PT, DPT Service: ? Author Type: Physical Therapist Type: Progress Notes Filed: 09/22/2024 11:57 Note Text: Episode Visit Count: 7 Therapist That Will Accept/Oversee The Plan Of Care: Neha Driver Start of Care Date: 07/30/24 Onset Date: 04/29/24 Plan of Care Certification Date: 09/01/24 Next Certification Due Date: 10/13/24 Patient Identified by Name and Date of : Yes REHABILITATION AND SPORTS THERAPY PHYSICAL THERAPY TREATMENT NOTE ASSESSMENT: Danny Heath tolerated the session with expected muscle soreness. He demonstrated difficulty with full TKE during LAQ this date compared to previous sessions. Improved TKE during LAQ with VC to straighten leg instead of lifting it. Was able to tolerate leg press without leg tingling today. The patient will continue to benefit from ongoing skilled physical therapy to progress toward set goals. PLAN FOR NEXT VISIT: Progress LE strengthening as tolerated, SUBJECTIVE: Patient feels his leg is healing a little bit. Does stairs at home, but none of his other exercises. Denies any tingling in leg since previous session. Pain: Pain Pain Level: 0 Pain Location: Knee - Left Post Treatment Pain Post Treatment Pain Level: No Change Post Treatment Pain Location: Knee - Left OBJECTIVE MEASURES WITH LEVEL OF FUNCTION: Difficulty achieving full terminal knee extension during seated LAQ on the left. TREATMENT: Therapeutic Exercise: 1: seated Scifit seat 13, 5 min, level 3, 1:1 throughout, subjective collected 2: leg press seat 6 #70 3x12 3: Seated hamstring and calf stretch with strap 3x30 sec 4: Seated LAQ verse 3# ankle weight 2x10 bilat, x10 no ankle weight 5: TKE 2x20 ball on wall, L 6: Stagger stance STS 2x10 each way 8: Discussion on importance of HEP compliance to continue showing good progress. Skilled Intervention: Patient was educated in proper exercise technique and purpose for exercises. Reviewed and educated patient on additions/changes for home exercise program as above (*). Skilled judgment was used in selection of appropriate interventions. Provided written instruction for home exercise program to facilitate proper performance and compliance. Correct performance of therapeutic exercises was facilitated with verbal and visual cuing. Billing Therapeutic Exercise Treatment Minutes: 39 Skilled Treatment Time Minutes (timed and untimed codes): 39 Total Session Time (minutes): 39 Session Start Time : 1117 Session Stop Time : 1156 Sebastian Marroquin PT, DPT [facility] 09-22-2024 History of Present illness Narrative Episode Visit Count: 7 Therapist That Will Accept/Oversee The Plan Of Care: Neha Driver Start of Care Date: 07/30/24 Onset Date: 04/29/24 Plan of Care Certification Date: 09/01/24 Next Certification Due Date: 10/13/24 Patient Identified by Name and Date of : Yes REHABILITATION AND SPORTS THERAPY PHYSICAL THERAPY TREATMENT NOTE ASSESSMENT: Danny Zac SyHeath tolerated the session with expected muscle soreness. He demonstrated difficulty with full TKE during LAQ this date compared to previous sessions. Improved TKE during LAQ with VC to straighten leg instead of lifting it. Was able to tolerate leg press without leg tingling today. The patient will continue to benefit from ongoing skilled physical therapy to progress toward set goals. PLAN FOR NEXT VISIT: Progress LE strengthening as tolerated, SUBJECTIVE: Patient feels his leg is healing a little bit. Does stairs at home, but none of his other exercises. Denies any tingling in leg since previous session. Pain: Pain Pain Level: 0 Pain Location: Knee - Left Post Treatment Pain Post Treatment Pain Level: No Change Post Treatment Pain Location: Knee - Left OBJECTIVE MEASURES WITH LEVEL OF FUNCTION: Difficulty achieving full terminal knee extension during seated LAQ on the left. TREATMENT: Therapeutic Exercise: 1: seated Scifit seat 13, 5 min, level 3, 1:1 throughout, subjective collected 2: leg press seat 6 #70 3x12 3: Seated hamstring and calf stretch with strap 3x30 sec 4: Seated LAQ verse 3# ankle weight 2x10 bilat, x10 no ankle weight 5: TKE 2x20 ball on wall, L 6: Stagger stance STS 2x[address] 8: Discussion on importance of HEP compliance to continue showing good progress. Skilled Intervention: Patient was educated in proper exercise technique and purpose for exercises. Reviewed and educated patient on additions/changes for home exercise program as above (*). Skilled judgment was used in selection of appropriate interventions. Provided written instruction for home exercise program to facilitate proper performance and compliance. Correct performance of therapeutic exercises was facilitated with verbal and visual cuing. Billing Therapeutic Exercise Treatment Minutes: 39 Skilled Treatment Time Minutes (timed and untimed codes): 39 Total Session Time (minutes): 39 Session Start Time : 1117 Session Stop Time : 1156 Sebastian Marroquin PT, DPT documented in this encounter [facility] 09-15-2024 History of Present illness Narrative Program_ID:[id number] Access Code: [email or web address] URL: [email or web address] Date: 09-15-2024 Prepared By: Neha Driver Program Notes Exercises - Lateral Step Up with Unilateral Counter Support - 1 x daily - 7 x weekly - 2 sets - 15 reps - Forward Step Up with Unilateral Counter Support - 1 x daily - 7 x weekly - 2 sets - 15 reps - Seated Hamstring Stretch - 2-3 x daily - 7 x weekly - 1 sets - 3 reps - Seated Hamstring Stretch - 2-3 x daily - 7 x weekly - 1 sets - 3 reps - Standing Hip Abduction with Counter Support - 1 x daily - 7 x weekly - 2 sets - 15-20 reps - Supine Active Straight Leg Raise - 1 x daily - 7 x weekly - 3 sets - 10 reps Episode Visit Count: 6 Therapist That Will Accept/Oversee The Plan Of Care: Neha Driver Start of Care Date: 07/30/24 Onset Date: 04/29/24 Plan of Care Certification Date: 09/01/24 Next Certification Due Date: 10/13/24 Patient Identified by Name and Date of : Yes REHABILITATION AND SPORTS THERAPY PHYSICAL THERAPY TREATMENT NOTE ASSESSMENT: Danny Heath tolerated the session with expected muscle soreness. He demonstrated quad lag with left ASLR, no pain in the knee. Notes increased left leg tingling with standing hip abduction exercise, subsides with rest did not recur with second set. Recurrence of left leg tingling with leg press this date, terminated and finished session with ADELIA exercise. The patient will continue to benefit from ongoing skilled physical therapy to progress toward set goals. PLAN FOR NEXT VISIT: Progress LE strengthening as tolerated SUBJECTIVE: Patient notes being unable to do HEP consistently this last week due to more pain. Feels left knee weakness, has not given out. Pain: Pain Pain Level: 0 Pain Location: Knee - Left Post Treatment Pain Post Treatment Pain Level: No Change Post Treatment Pain Location: Knee - Left OBJECTIVE MEASURES WITH LEVEL OF FUNCTION: Moderate quad lag with L ALSR TREATMENT: Therapeutic Exercise: 1: seated Scifit seat 13, 5 min, level 3, 1:1 throughout, subjective collected 2: leg press seat 6 #70 x12, x8 second set terminated due to left leg tingling 3: Seated hamstring and calf stretch with strap 3x30 sec 4: *Supine ASLR 2x10 left 5: TKE 2x20 ball on wall, L 6: Standing hip abduction no resistance 2x20 bilat 7: Supine hip flexor stretch off EOB [id number] L 8: ADELIA x3 minutes to end the session Skilled Intervention: Patient was educated in proper exercise technique and purpose for exercises. Reviewed and educated patient on additions/changes for home exercise program as above (*). Skilled judgment was used in selection of appropriate interventions. Provided written instruction for home exercise program to facilitate proper performance and compliance. Correct performance of therapeutic exercises was facilitated with verbal and visual cuing. Billing Therapeutic Exercise Treatment Minutes: 38 Skilled Treatment Time Minutes (timed and untimed codes): 38 Total Session Time (minutes): 38 Session Start Time : 1117 Session Stop Time : 1155 Sebastian Marroquin PT, DPT documented in this encounter [facility] 09-15-2024 Note HNO ID: [id number] Author: SEBASTIAN MARROQUIN PT, DPT Service: ? Author Type: Physical Therapist Type: Progress Notes Filed: 09/15/2024 11:57 Note Text: Episode Visit Count: 6 Therapist That Will Accept/Oversee The Plan Of Care: Neha Driver Start of Care Date: 07/30/24 Onset Date: 04/29/24 Plan of Care Certification Date: 09/01/24 Next Certification Due Date: 10/13/24 Patient Identified by Name and Date of : Yes REHABILITATION AND SPORTS THERAPY PHYSICAL THERAPY TREATMENT NOTE ASSESSMENT: Danny Heath tolerated the session with expected muscle soreness. He demonstrated quad lag with left ASLR, no pain in the knee. Notes increased left leg tingling with standing hip abduction exercise, subsides with rest did not recur with second set. Recurrence of left leg tingling with leg press this date, terminated and finished session with ADELIA exercise. The patient will continue to benefit from ongoing skilled physical therapy to progress toward set goals. PLAN FOR NEXT VISIT: Progress LE strengthening as tolerated SUBJECTIVE: Patient notes being unable to do HEP consistently this last week due to more pain. Feels left knee weakness, has not given out. Pain: Pain Pain Level: 0 Pain Location: Knee - Left Post Treatment Pain Post Treatment Pain Level: No Change Post Treatment Pain Location: Knee - Left OBJECTIVE MEASURES WITH LEVEL OF FUNCTION: Moderate quad lag with L ALSR TREATMENT: Therapeutic Exercise: 1: seated Scifit seat 13, 5 min, level 3, 1:1 throughout, subjective collected 2: leg press seat 6 #70 x12, x8 second set terminated due to left leg tingling 3: Seated hamstring and calf stretch with strap 3x30 sec 4: *Supine ASLR 2x10 left 5: TKE 2x20 ball on wall, L 6: Standing hip abduction no resistance 2x20 bilat 7: Supine hip flexor stretch off EOB [id number] L 8: ADELIA x3 minutes to end the session Skilled Intervention: Patient was educated in proper exercise technique and purpose for exercises. Reviewed and educated patient on additions/changes for home exercise program as above (*). Skilled judgment was used in selection of appropriate interventions. Provided written instruction for home exercise program to facilitate proper performance and compliance. Correct performance of therapeutic exercises was facilitated with verbal and visual cuing. Billing Therapeutic Exercise Treatment Minutes: 38 Skilled Treatment Time Minutes (timed and untimed codes): 38 Total Session Time (minutes): 38 Session Start Time : 1117 Session Stop Time : 1155 Sebastian Marroquin PT, DPT [facility] 09-08-2024 History of Present illness Narrative Program_ID:[id number] Access Code: [email or web address] URL: [email or web address] Date: 09-08-2024 Prepared By: Neha Driver Program Notes Exercises - Lateral Step Up with Unilateral Counter Support - 1 x daily - 7 x weekly - 2 sets - 15 reps - Forward Step Up with Unilateral Counter Support - 1 x daily - 7 x weekly - 2 sets - 15 reps - Seated Hamstring Stretch - 2-3 x daily - 7 x weekly - 1 sets - 3 reps - Seated Hamstring Stretch - 2-3 x daily - 7 x weekly - 1 sets - 3 reps - Standing Hip Abduction with Counter Support - 1 x daily - 7 x weekly - 2 sets - 15-20 reps Episode Visit Count: 5 Therapist That Will Accept/Oversee The Plan Of Care: Neha Driver Start of Care Date: 07/30/24 Onset Date: 04/29/24 Plan of Care Certification Date: 09/01/24 Next Certification Due Date: 10/13/24 Patient Identified by Name and Date of : Yes REHABILITATION AND SPORTS THERAPY PHYSICAL THERAPY TREATMENT NOTE ASSESSMENT: Danny Heath tolerated the session with expected muscle soreness. He demonstrated some soreness with addition of weight with LAQ, no familiar knee pain per report. Tolerated increased weight with leg press well this date. Significant difficulty with standing hip abduction verse pink TB on the left due to weakness. Revised to no resistance and added to HEP. The patient will continue to benefit from ongoing skilled physical therapy to progress toward set goals. PLAN FOR NEXT VISIT: Progress LE strengthening as tolerated SUBJECTIVE: Notes the left leg continues to be weak. Had to get up on a ladder last week and this increased the knee pain. HEP going well, doing somewhat consistently. Pain: Pain Pain Level: 5 Pain Location: Knee - Left Post Treatment Pain Post Treatment Pain Level: (sore) Post Treatment Pain Location: Knee - Left OBJECTIVE MEASURES WITH LEVEL OF FUNCTION: Significant left quad and lateral hip weakness. TREATMENT: Therapeutic Exercise: 1: seated Scifit seat 13, 5 min, level 2, 1:1 throughout, subjective collected 2: leg press seat 6 #70 3x12 3: Seated hamstring and calf stretch with strap 3x30 sec 4: seated LAQ x12 each side, with 3# ankle weight 2x12 6: Standing hip abduction verse pink TB at ankles x10 bilat significant difficulty on the left due to weakness. revised to standing abudction no resistance x20 bilat 7: lat step ups 2x12, 6 each side x1 UE support Skilled Intervention: Patient was educated in proper exercise technique and purpose for exercises. Reviewed and educated patient on additions/changes for home exercise program as above (*). Skilled judgment was used in selection of appropriate interventions. Provided written instruction for home exercise program to facilitate proper performance and compliance. Correct performance of therapeutic exercises was facilitated with verbal and visual cuing. Billing Therapeutic Exercise Treatment Minutes: 39 Skilled Treatment Time Minutes (timed and untimed codes): 39 Total Session Time (minutes): 39 Session Start Time : 1247 Session Stop Time : 1326 Sebastian Marroquin PT, DPT documented in this encounter [facility] 09-08-2024 Note HNO ID: [id number] Author: SEBASTIAN MARROQUIN PT, DPT Service: ? Author Type: Physical Therapist Type: Progress Notes Filed: 09/08/2024 13:27 Note Text: Episode Visit Count: 5 Therapist That Will Accept/Oversee The Plan Of Care: Neha Driver Start of Care Date: 07/30/24 Onset Date: 04/29/24 Plan of Care Certification Date: 09/01/24 Next Certification Due Date: 10/13/24 Patient Identified by Name and Date of : Yes REHABILITATION AND SPORTS THERAPY PHYSICAL THERAPY TREATMENT NOTE ASSESSMENT: Danny Heath tolerated the session with expected muscle soreness. He demonstrated some soreness with addition of weight with LAQ, no familiar knee pain per report. Tolerated increased weight with leg press well this date. Significant difficulty with standing hip abduction verse pink TB on the left due to weakness. Revised to no resistance and added to HEP. The patient will continue to benefit from ongoing skilled physical therapy to progress toward set goals. PLAN FOR NEXT VISIT: Progress LE strengthening as tolerated SUBJECTIVE: Notes the left leg continues to be weak. Had to get up on a ladder last week and this increased the knee pain. HEP going well, doing somewhat consistently. Pain: Pain Pain Level: 5 Pain Location: Knee - Left Post Treatment Pain Post Treatment Pain Level: (sore) Post Treatment Pain Location: Knee - Left OBJECTIVE MEASURES WITH LEVEL OF FUNCTION: Significant left quad and lateral hip weakness. TREATMENT: Therapeutic Exercise: 1: seated Scifit seat 13, 5 min, level 2, 1:1 throughout, subjective collected 2: leg press seat 6 #70 3x12 3: Seated hamstring and calf stretch with strap 3x30 sec 4: seated LAQ x12 each side, with 3# ankle weight 2x12 6: Standing hip abduction verse pink TB at ankles x10 bilat significant difficulty on the left due to weakness. revised to standing abudction no resistance x20 bilat 7: lat step ups 2x12, 6 each side x1 UE support Skilled Intervention: Patient was educated in proper exercise technique and purpose for exercises. Reviewed and educated patient on additions/changes for home exercise program as above (*). Skilled judgment was used in selection of appropriate interventions. Provided written instruction for home exercise program to facilitate proper performance and compliance. Correct performance of therapeutic exercises was facilitated with verbal and visual cuing. Billing Therapeutic Exercise Treatment Minutes: 39 Skilled Treatment Time Minutes (timed and untimed codes): 39 Total Session Time (minutes): 39 Session Start Time : 1247 Session Stop Time : 1326 Sebastian Marroquin PT, DPT [facility] 09-01-2024 Note HNO ID: [id number] Author: NEHA DRIVER PT Service: ? Author Type: Physical Therapist Type: Progress Notes Filed: 09/01/2024 10:48 Note Text: Episode Visit Count: 4 Therapist That Will Accept/Oversee The Plan Of Care: Neha Driver Start of Care Date: 07/30/24 Onset Date: 04/29/24 Plan of Care Certification Date: 09/01/24 Next Certification Due Date: 10/13/24 REHABILITATION AND SPORTS THERAPY PHYSICAL THERAPY PROGRESS REPORT PLAN OF CARE UPDATE: Assessment: Danny Heath demonstrates improvements in stair negotiation and weight bearing. The patient has progressed toward goals. Patient continues to present with impairments in ADL's, balance, gait, independence in exercise, joint mobility, overall function, patient reported outcome measures, range of motion, strength, and symptom management that interfere with walking . Current prognosis is Fair due to: poor historian, coping skills, clinical presentation, multiple co- morbidities, chronic nature of impairments, Prognosis may be improved by positive past response to therapy. The patient will benefit from continued skilled therapy services to meet the updated goals for this plan of care as noted below. Goals for Episode of Care: established 07/30/24 Goals updated on 09/01/2024. [place] in home exercise program.-- PROGRESSING Patient will decrease pain to 1-2/10 with functional activities to allow patient to improve ambulation, transfers, and standing tolerance for ADLs. -- MET Patient will increase active ROM of bilateral knee extension to 0 degrees extension to allow pt to to improve postural alignment, to improve performance of ADLs, to improve gait mechanics / gait pattern , and to decrease falls risks . -- PROGRESSING Patient will demonstrate increase in Lquadriceps strength to 4/5 during manual muscle testing in order to improve function for prior functional tasks. -- PROGRESSING , pt. C/o pain with active LAQ and therefore resistance not applied Normal gait. -- PROGRESSING Reciprocal stair negotiation. -- PROGRESSING, pt. Does intermittent step to Patient Goals: walking up and down stairs with reduced L knee pain. -- MET Time Frame for Goals and Treatment : 10/13/24 Patient Goals: walking up and down stairs with reduced L knee pain. Planned Interventions, Frequency, and Duration: 1x/week, 6 weeks Total Number of Visits Planned: 6 Patient to be seen for Gait Training (82242), Self-long-term management (80802), Therapeutic activities (71676), Manual therapy (68071), Neuromuscular re-education (34909), Therapeutic exercise (05852) PLAN FOR NEXT VISIT: increase leg press weight SUBJECTIVE: Denies pain. Denies falls. Admits that he doesn't do his HEP because he feels that climbing stairs at home is enough exercise. Pt. wants to do the leg press.. Patient Goals: walking up and down stairs with reduced L knee pain. Functional Limitations: walking Pain: Pain Pain Level: 0 Pain Location: Knee - Left Description: Aching Post Treatment Pain Post Treatment Pain Location: Knee - Left PROMIS Scales 08/25/2024 07/27/2024 Higher is Better Phys Func - Score 34 (moderate dysfunction) 33 (moderate dysfunction) Phys Func - Percentile 5 4 Self-Eff Symptom - Score 39 (Low) 40 (Average) Self-Eff Symptom - Percentile 14 16 T-scores: mean of general population = 50. 5 points is clinically meaningfully difference Percentiles provide an indication of how the patient's score ranks in relation to the general population. Higher percentile rankings indicate better function/quality of life. 50th percentile is the average of the general population and indicates half of respondents had a worse score. OBJECTIVE MEASURES WITH LEVEL OF FUNCTION: LE AROM R Knee Extension: -6 Degrees L Knee Extension: -6 Degrees LE Strength R Knee Extension (L3): 2+/5 L Knee Extension (L3): 2+/5 Gait Gait: Independent Gait Device: None Gait Deviations: General Deviations General Deviations/Observations: Lateral sway increased, Flexed trunk posture, Trunk Control Decreased, Visual scanning/environmental awareness decreased, Path Deviation (R trunk list, minimal arm swing) Stairs: ascends and descends with reciprocal pattern, x1 HR ascending and x2 UE support descending. TREATMENT: Therapeutic Exercise: 1: seated Scifit seat 13, 5 min, level 2, 1:1 throughout, subjective collected 2: leg press seat 8 #60 4x12 (cues for full extension at the B knees) 3: TRX mid rows 4x15 4: seated LAQ 2x12 each side 5: TKE 2x20 ball on wall, each LE Skilled Intervention: Patient was educated in proper exercise technique and purpose for exercises. Skilled judgment was used in selection of appropriate interventions. Correct performance of therapeutic exercises was facilitated with verbal, visual, and tactile cuing. Educated patient on rationale for performing exercises in regards to decreasing fatigue , includin (more content not included)... [facility] 09-01-2024 History of Present illness Narrative Images from the original note were not included. Episode Visit Count: 4 Therapist That Will Accept/Oversee The Plan Of Care: Neha Driver Start of Care Date: 07/30/24 Onset Date: 04/29/24 Plan of Care Certification Date: 09/01/24 Next Certification Due Date: 10/13/24 REHABILITATION AND SPORTS THERAPY PHYSICAL THERAPY PROGRESS REPORT PLAN OF CARE UPDATE: Assessment: Danny Zac SyHeath demonstrates improvements in stair negotiation and weight bearing. The patient has progressed toward goals. Patient continues to present with impairments in ADL's, balance, gait, independence in exercise, joint mobility, overall function, patient reported outcome measures, range of motion, strength, and symptom management that interfere with walking . Current prognosis is Fair due to: poor historian, coping skills, clinical presentation, multiple co- morbidities, chronic nature of impairments, Prognosis may be improved by positive past response to therapy. The patient will benefit from continued skilled therapy services to meet the updated goals for this plan of care as noted below. Goals for Episode of Care: established 07/30/24 Goals updated on 09/01/2024. [place] in home exercise program.-- PROGRESSING Patient will decrease pain to 1-2/10 with functional activities to allow patient to improve ambulation, transfers, and standing tolerance for ADLs. -- MET Patient will increase active ROM of bilateral knee extension to 0 degrees extension to allow pt to to improve postural alignment, to improve performance of ADLs, to improve gait mechanics / gait pattern , and to decrease falls risks . -- PROGRESSING Patient will demonstrate increase in Lquadriceps strength to 4/5 during manual muscle testing in order to improve function for prior functional tasks. -- PROGRESSING , pt. C/o pain with active LAQ and therefore resistance not applied Normal gait. -- PROGRESSING Reciprocal stair negotiation. -- PROGRESSING, pt. Does intermittent step to Patient Goals: walking up and down stairs with reduced L knee pain. -- MET Time Frame for Goals and Treatment : 10/13/24 Patient Goals: walking up and down stairs with reduced L knee pain. Planned Interventions, Frequency, and Duration: 1x/week, 6 weeks Total Number of Visits Planned: 6 Patient to be seen for Gait Training (69822), Self-long-term management (15936), Therapeutic activities (38171), Manual therapy (13797), Neuromuscular re-education (66589), Therapeutic exercise (56909) PLAN FOR NEXT VISIT: increase leg press weight SUBJECTIVE: Denies pain. Denies falls. Admits that he doesn't do his HEP because he feels that climbing stairs at home is enough exercise. Pt. wants to do the leg press.. Patient Goals: walking up and down stairs with reduced L knee pain. Functional Limitations: walking Pain: Pain Pain Level: 0 Pain Location: Knee - Left Description: Aching Post Treatment Pain Post Treatment Pain Location: Knee - Left PROMIS Scales 08/25/2024 07/27/2024 Higher is Better Phys Func - Score 34 (moderate dysfunction) 33 (moderate dysfunction) Phys Func - Percentile 5 4 Self-Eff Symptom - Score 39 (Low) 40 (Average) Self-Eff Symptom - Percentile 14 16 T-scores: mean of general population = 50. 5 points is clinically meaningfully difference Percentiles provide an indication of how the patient's score ranks in relation to the general population. Higher percentile rankings indicate better function/quality of life. 50th percentile is the average of the general population and indicates half of respondents had a worse score. OBJECTIVE MEASURES WITH LEVEL OF FUNCTION: LE AROM R Knee Extension: -6 Degrees L Knee Extension: -6 Degrees LE Strength R Knee Extension (L3): 2+/5 L Knee Extension (L3): 2+/5 Gait Gait: Independent Gait Device: None Gait Deviations: General Deviations General Deviations/Observations: Lateral sway increased, Flexed trunk posture, Trunk Control Decreased, Visual scanning/environmental awareness decreased, Path Deviation (R trunk list, minimal arm swing) Stairs: ascends and descends with reciprocal pattern, x1 HR ascending and x2 UE support descending. TREATMENT: Therapeutic Exercise: 1: seated Scifit seat 13, 5 min, level 2, 1:1 throughout, subjective collected 2: leg press seat 8 #60 4x12 (cues for full extension at the B knees) 3: TRX mid rows 4x15 4: seated LAQ 2x12 each side 5: TKE 2x20 ball on wall, each LE Skilled Intervention: Patient was educated in proper exercise technique and purpose for exercises. Skilled judgment was used in selection of appropriate interventions. Correct performance of therapeutic exercises was facilitated with verbal, visual, and tactile cuing. Educated patient on rationale for performing exercises in regards to decreasing fatigue , including balance, increase ease of ADL, and ROM and function . Patient education as noted. Neuromuscular Re-Education: 1: SLS on firm surface x2 UE support at // bars 30 sec Skilled Intervention: Skilled judgment used to assess appropriate program for balance and coordination activity. Education in proprioceptive/kinesthetic awareness during standing. Ensured patient safety with use of // bars within reach. Correct performance of home program was facilitated with verbal, visual, and tactile cueing. Patient education as noted. Gait Training: Pre gait training: demo provided Distance (feet): 80' 4x Gait Cues: heel strike, heel strike to toe push off pattern, allow the arms to swing Assistive Device: none Assist Level: indep Stair Traininx 6 steps ascending and descending with reciprocal pattern, x2 HR descending and x1 HR ascending Skilled Intervention: Patient was provided supervision during pre-gait/gait training to prevent falls and insure safety. Facilitated proper gait cycle with the use of verbal and visual cues for correction of gait deviations identified in the objective section above. Correct performance of home program was facilitated with verbal and visual cueing. Billing Therapeutic Exercise Treatment Minutes: 25 Neuromuscular Re-Education Treatment Minutes: 5 Gait Training Treatment Minutes: 10 Skilled Treatment Time Minutes (timed and untimed codes): 40 Total Session Time (minutes): 40 Session Start Time : 1003 Session Stop Time : 1043 Neha Driver PT documented in this encounter [facility] 08-25-2024 History of Present illness Narrative Program_ID:[id number] Access Code: [email or web address] URL: [email or web address] Date: 08-25-2024 Prepared By: Neha Driver Program Notes Exercises - Lateral Step Up with Unilateral Counter Support - 1 x daily - 7 x weekly - 2 sets - 15 reps - Forward Step Up with Unilateral Counter Support - 1 x daily - 7 x weekly - 2 sets - 15 reps - Seated Hamstring Stretch - 2-3 x daily - 7 x weekly - 1 sets - 3 reps - Seated Hamstring Stretch - 2-3 x daily - 7 x weekly - 1 sets - 3 reps Episode Visit Count: 3 Therapist That Will Accept/Oversee The Plan Of Care: Neha Driver Start of Care Date: 07/30/24 Onset Date: 04/29/24 Plan of Care Certification Date: 07/30/24 Next Certification Due Date: 09/10/24 REHABILITATION AND SPORTS THERAPY PHYSICAL THERAPY TREATMENT NOTE ASSESSMENT: Danny Heath tolerated the session with fatigue. He demonstrated apprehension with step ups fwd and lateral when progressing from x2 UE support to 2 UE support at // bars. Pt. Requires cues for trunk posture and to avoid excessive distresser on HR . The patient will continue to benefit from ongoing skilled physical therapy to progress toward set goals. Planned Treatment Interventions: Gait Training (42768), Self-long-term management (78783), Therapeutic activities (00372), Manual therapy (39227), Neuromuscular re-education (77742), Therapeutic exercise (10584) PLAN FOR NEXT VISIT: assess symptom resposne to step ups with x1 HR, progress to single step up fwd and lateral without any HR and add to HEP ALternate standing and seated exercises due to pt. reports of fatigue. SUBJECTIVE: Denies pain. Mentions 2 full flights of stairs at home that he must use hand rail to complete. Describes that he gets fatigued to the point of needing to climb himself with alternating hand over hand gripping due to x1 HR. Pt. gets vertigo at times when attempting to descend steps. He reports that the vertigo only occurs with this task and resolves if he sits down and does not choose to go down the steps. Patient Goals: walking up and down stairs with reduced L knee pain. Pain: Pain Pain Level: 0 Pain Location: Knee - Left Description: Aching Post Treatment Pain Post Treatment Pain Location: Knee - Left OBJECTIVE MEASURES WITH LEVEL OF FUNCTION: TREATMENT: Therapeutic Exercise: 1: seated Scifit seat 13, 5 min, level 2, 1:1 throughout, subjective collected 2: fwd step ups 1x15, 6 each side x2 UE support 3: fwd step ups 3x15, 6 each side x1 UE support 4: standing hip extension at // bars 4x15 each side 5: seated HS stretch 3x30 sec each side 6: lat step ups 1x15, 6 each side x2 UE support 7: lat step ups 3x15, 6 each side x1 UE support (LLE fatigue following this exercise requiring seated rest) 8: seated Sciatic nerve glide 2x5 each side Skilled Intervention: Patient was educated in proper exercise technique and purpose for exercises. Skilled judgment was used in selection of appropriate interventions. Provided written instruction for home exercise program to facilitate proper performance and compliance. Correct performance of therapeutic exercises was facilitated with verbal, visual, and tactile cuing. Educated patient on rationale for performing exercises in regards to decreasing fatigue , increase ease of ADL, and ROM and function . Patient education as noted. Billing Therapeutic Exercise Treatment Minutes: 40 Skilled Treatment Time Minutes (timed and untimed codes): 40 Total Session Time (minutes): 40 Session Start Time : 1011 Session Stop Time : 1051 Neha Driver PT documented in this encounter [facility] 08-25-2024 Note HNO ID: [id number] Author: NEHA DRIVER PT Service: ? Author Type: Physical Therapist Type: Progress Notes Filed: 08/25/2024 10:54 Note Text: Episode Visit Count: 3 Therapist That Will Accept/Oversee The Plan Of Care: Neha Driver Start of Care Date: 07/30/24 Onset Date: 04/29/24 Plan of Care Certification Date: 07/30/24 Next Certification Due Date: 09/10/24 REHABILITATION AND SPORTS THERAPY PHYSICAL THERAPY TREATMENT NOTE ASSESSMENT: Danny Heath tolerated the session with fatigue. He demonstrated apprehension with step ups fwd and lateral when progressing from x2 UE support to 2 UE support at // bars. Pt. Requires cues for trunk posture and to avoid excessive distresser on HR . The patient will continue to benefit from ongoing skilled physical therapy to progress toward set goals. Planned Treatment Interventions: Gait Training (69052), Self-long-term management (73270), Therapeutic activities (23022), Manual therapy (99152), Neuromuscular re-education (07253), Therapeutic exercise (10295) PLAN FOR NEXT VISIT: assess symptom resposne to step ups with x1 HR, progress to single step up fwd and lateral without any HR and add to HEP ALternate standing and seated exercises due to pt. reports of fatigue. SUBJECTIVE: Denies pain. Mentions 2 full flights of stairs at home that he must use hand rail to complete. Describes that he gets fatigued to the point of needing to climb himself with alternating hand over hand gripping due to x1 HR. Pt. gets vertigo at times when attempting to descend steps. He reports that the vertigo only occurs with this task and resolves if he sits down and does not choose to go down the steps. Patient Goals: walking up and down stairs with reduced L knee pain. Pain: Pain Pain Level: 0 Pain Location: Knee - Left Description: Aching Post Treatment Pain Post Treatment Pain Location: Knee - Left OBJECTIVE MEASURES WITH LEVEL OF FUNCTION: TREATMENT: Therapeutic Exercise: 1: seated Scifit seat 13, 5 min, level 2, 1:1 throughout, subjective collected 2: fwd step ups 1x15, 6 each side x2 UE support 3: fwd step ups 3x15, 6 each side x1 UE support 4: standing hip extension at // bars 4x15 each side 5: seated HS stretch 3x30 sec each side 6: lat step ups 1x15, 6 each side x2 UE support 7: lat step ups 3x15, 6 each side x1 UE support (LLE fatigue following this exercise requiring seated rest) 8: seated Sciatic nerve glide 2x5 each side Skilled Intervention: Patient was educated in proper exercise technique and purpose for exercises. Skilled judgment was used in selection of appropriate interventions. Provided written instruction for home exercise program to facilitate proper performance and compliance. Correct performance of therapeutic exercises was facilitated with verbal, visual, and tactile cuing. Educated patient on rationale for performing exercises in regards to decreasing fatigue , increase ease of ADL, and ROM and function . Patient education as noted. Billing Therapeutic Exercise Treatment Minutes: 40 Skilled Treatment Time Minutes (timed and untimed codes): 40 Total Session Time (minutes): 40 Session Start Time : 1011 Session Stop Time : 1051 Neha Driver PT [facility] 08-11-2024 History of Present illness Narrative Program_ID:[id number] Access Code: [email or web address] URL: [email or web address] Date: 08-11-2024 Prepared By: Neha Driver Program Notes Exercises - Supine Sciatic Nerve [place] - 2 x daily - 7 x weekly - 3 sets - 5 reps - Sit to Stand with Arms Crossed - 2 x daily - 7 x weekly - 4 sets - 3 reps - Clamshell - 1 x daily - 5-7 x weekly - 4 sets - 15 reps - Clamshell - 1 x daily - 5-7 x weekly - 4 sets - 15 reps - Prone Hip Extension - 1 x daily - 7 x weekly - 4 sets - 12 reps Episode Visit Count: 2 Therapist That Will Accept/Oversee The Plan Of Care: Neha Driver Start of Care Date: 07/30/24 Onset Date: 04/29/24 Plan of Care Certification Date: 07/30/24 Next Certification Due Date: 09/10/24 REHABILITATION AND SPORTS THERAPY PHYSICAL THERAPY TREATMENT NOTE ASSESSMENT: Danny Heath tolerated the session with no issues. He demonstrated difficulty with sit <> stand without use of BUE's support, limited to 3 reps but able to demonstrate correct technique and less difficulty with cues for sequence. Substantially more weakness LLE as compared to the R with prone hip ext and clamshells ER. Pt. Requires multiple cues to not substitute HS curls for hip extension due to weak glutes. The patient will continue to benefit from ongoing skilled physical therapy to progress toward set goals. PLAN FOR NEXT VISIT: continue to progress hip strengthening exercises. Consider mini squats and use of TRX and amb with carrying weights. Glute strengthening LLE is priority. SUBJECTIVE: Denies pain. States that his knee is getting better. Pain: Pain Pain Level: 0 Pain Location: Knee - Left Description: Aching Frequency: Sitting OBJECTIVE MEASURES WITH LEVEL OF FUNCTION: TREATMENT: Therapeutic Exercise: 1: *Access Code: [email or web address] URL: [email or web address] Date: 08/11/2024 Prepared by: Neha Gayle Exercises - Supine Sciatic Nerve [place] - 2 x daily - 7 x weekly - 3 sets - 5 reps - 2 hold - Sit to Stand with Arms Crossed - 2 x daily - 7 x weekly - 4 sets - 3 reps - 1 hold - Clamshell - 1 x daily - 5-7 x weekly - 4 sets - 15 reps - Clamshell (Mirrored) - 1 x daily - 5-7 x weekly - 4 sets - 15 reps - Prone Hip Extension - 1 x daily - 7 x weekly - 4 sets - 12 reps 2: ADELIA 1 min between sets of hip extension 3: prone hip ER ball between feet prone, hips ext and knees flexed 90, 5x10 sec hold isometrics Skilled Intervention: Patient was educated in proper exercise technique and purpose for exercises. Skilled judgment was used in selection of appropriate interventions. Provided written instruction for home exercise program to facilitate proper performance and compliance. Correct performance of therapeutic exercises was facilitated with verbal, visual, and tactile cuing. Educated patient on rationale for performing exercises in regards to decreasing fatigue , increase ease of ADL, and ROM and function . Patient education as noted. Therapeutic Activity: 1: sit <> stand - scoot forward, and bring trunk forward, extend knees just before hips rather than knees, pause, hips, 2x before sets of 3 for ther ex Skilled Intervention: Proper patient guarding to prevent falls/increase patient safety with stand by assist to assist patient while performing sit < > stand transfers. Educated on proper/safe technique for activities performed today. Activity progression based on professional judgment. Assisted proper completion of task with verbal, visual, and tactile cueing and correction of abnormal movement patterns. Reviewed and educated patient on additions/changes for home program as noted above with an (*). Correct performance of home program was facilitated with verbal, visual, and tactile cueing. Self-Halfway Management: 1: advised slow controlled performance of exercises to build stability strength Skilled Intervention: Skilled judgment in the selection of proper modification for activity of daily living/home management based on clinical presentation, deficits, and needs. Provided written instruction for activities of daily living techniques to facilitate proper performance and compliance. Reviewed patient specific diagnosis in relation to activities of daily living/home management. Activity progression based on professional judgement. Moderate verbal cues for maintaining neutral spine alignment. Provided written instruction for home program to facilitate proper performance and compliance. Correct performance of home program was facilitated with verbal, visual, and tactile cueing. Billing Therapeutic Exercise Treatment Minutes: 33 Therapeutic Activity Treatment Minutes: 5 Self-Care/Home Management Treatment Minutes: 2 Skilled Treatment Time Minutes (timed and untimed codes): 40 Total Session Time (minutes): 40 Session Start Time : 839 Session Stop Time : 919 Neha Driver PT documented in this encounter [facility] 08-11-2024 Note HNO ID: [id number] Author: NEHA DRIVER PT Service: ? Author Type: Physical Therapist Type: Progress Notes Filed: 08/11/2024 09:21 Note Text: Episode Visit Count: 2 Therapist That Will Accept/Oversee The Plan Of Care: Neha Driver Start of Care Date: 07/30/24 Onset Date: 04/29/24 Plan of Care Certification Date: 07/30/24 Next Certification Due Date: 09/10/24 REHABILITATION AND SPORTS THERAPY PHYSICAL THERAPY TREATMENT NOTE ASSESSMENT: Danny Heath tolerated the session with no issues. He demonstrated difficulty with sit <> stand without use of BUE's support, limited to 3 reps but able to demonstrate correct technique and less difficulty with cues for sequence. Substantially more weakness LLE as compared to the R with prone hip ext and clamshells ER. Pt. Requires multiple cues to not substitute HS curls for hip extension due to weak glutes. The patient will continue to benefit from ongoing skilled physical therapy to progress toward set goals. PLAN FOR NEXT VISIT: continue to progress hip strengthening exercises. Consider mini squats and use of TRX and amb with carrying weights. Glute strengthening LLE is priority. SUBJECTIVE: Denies pain. States that his knee is getting better. Pain: Pain Pain Level: 0 Pain Location: Knee - Left Description: Aching Frequency: Sitting OBJECTIVE MEASURES WITH LEVEL OF FUNCTION: TREATMENT: Therapeutic Exercise: 1: *Access Code: [email or web address] URL: [email or web address] Date: 08/11/2024 Prepared by: Neha Driver Exercises - Supine Sciatic Nerve [place] - 2 x daily - 7 x weekly - 3 sets - 5 reps - 2 hold - Sit to Stand with Arms Crossed - 2 x daily - 7 x weekly - 4 sets - 3 reps - 1 hold - Clamshell - 1 x daily - 5-7 x weekly - 4 sets - 15 reps - Clamshell (Mirrored) - 1 x daily - 5-7 x weekly - 4 sets - 15 reps - Prone Hip Extension - 1 x daily - 7 x weekly - 4 sets - 12 reps 2: ADELIA 1 min between sets of hip extension 3: prone hip ER ball between feet prone, hips ext and knees flexed 90, 5x10 sec hold isometrics Skilled Intervention: Patient was educated in proper exercise technique and purpose for exercises. Skilled judgment was used in selection of appropriate interventions. Provided written instruction for home exercise program to facilitate proper performance and compliance. Correct performance of therapeutic exercises was facilitated with verbal, visual, and tactile cuing. Educated patient on rationale for performing exercises in regards to decreasing fatigue , increase ease of ADL, and ROM and function . Patient education as noted. Therapeutic Activity: 1: sit <> stand - scoot forward, and bring trunk forward, extend knees just before hips rather than knees, pause, hips, 2x before sets of 3 for ther ex Skilled Intervention: Proper patient guarding to prevent falls/increase patient safety with stand by assist to assist patient while performing sit < > stand transfers. Educated on proper/safe technique for activities performed today. Activity progression based on professional judgment. Assisted proper completion of task with verbal, visual, and tactile cueing and correction of abnormal movement patterns. Reviewed and educated patient on additions/changes for home program as noted above with an (*). Correct performance of home program was facilitated with verbal, visual, and tactile cueing. Self-Halfway Management: 1: advised slow controlled performance of exercises to build stability strength Skilled Intervention: Skilled judgment in the selection of proper modification for activity of daily living/home management based on clinical presentation, deficits, and needs. Provided written instruction for activities of daily living techniques to facilitate proper performance and compliance. Reviewed patient specific diagnosis in relation to activities of daily living/home management. Activity progression based on professional judgement. Moderate verbal cues for maintaining neutral spine alignment. Provided written instruction for home program to facilitate proper performance and compliance. Correct performance of home program was facilitated with verbal, visual, and tactile cueing. Billing Therapeutic Exercise Treatment Minutes: 33 Therapeutic Activity Treatment Minutes: 5 Self-Care/Home Management Treatment Minutes: 2 Skilled Treatment Time Minutes (timed and untimed codes): 40 Total Session Time (minutes): 40 Session Start Time : 839 Session Stop Time : 919 Neha Driver PT [facility] 07-30-2024 Note HNO ID: [id number] Author: NEHA DRIVER PT Service: ? Author Type: Physical Therapist Type: Progress Notes Filed: 07/30/2024 11:52 Note Text: Episode Visit Count: 1 Therapist That Will Accept/Oversee The Plan Of Care: Neha Driver Start of Care Date: 07/30/24 Onset Date: 04/29/24 Plan of Care Certification Date: 07/30/24 Next Certification Due Date: 09/10/24 Patient Identified by Name and Date of : Yes REHABILITATION AND SPORTS THERAPY PHYSICAL THERAPY EVALUATION PLAN OF CARE: Assessment: Danny Heath presents with diagnosis of weakness of left lower extremity that interferes with stair negotiation, weight bearing . He presents with impairments in ADL's, balance, flexibility, gait, independence in exercise, joint mobility, overall function, patient reported outcome measures, posture, range of motion, strength, symptom management, and tissue tenderness. Patient did not complete the PROMIS? (Patient Reported Outcome Measures Information System) due to family reports of pt. Being a limited historian. Prognosis for therapy is Fair due to: poor historian, coping skills, clinical presentation, multiple co- morbidities, chronic nature of impairments . He will benefit from skilled therapy services to meet the goals established for this plan of care as noted below. Goals for Episode of Care: established 07/30/24 [place] in home exercise program. Patient will decrease pain to 1-2/10 with functional activities to allow patient to improve ambulation, transfers, and standing tolerance for ADLs. Patient will increase active ROM of bilateral knee extension to 0 degrees extension to allow pt to to improve postural alignment, to improve performance of ADLs, to improve gait mechanics / gait pattern , and to decrease falls risks . Patient will demonstrate increase in Lquadriceps strength to 4/5 during manual muscle testing in order to improve function for prior functional tasks. Normal gait. Reciprocal stair negotiation. Patient Goals: walking up and down stairs with reduced L knee pain. Time Frame for Goals and Treatment : 09/10/24 Planned Interventions, Frequency, and Duration: Current Frequency: 1x/week Duration: 6 weeks Total Number of Visits Planned: 6 Planned Treatment Interventions: Gait Training (20729), Self-long-term management (93457), Therapeutic activities (87856), Manual therapy (35640), Neuromuscular re-education (51816), Therapeutic exercise (37111) PLAN FOR NEXT VISIT: Patient demonstrates good understanding of plan of care and treatment. The above goals and plan of care were discussed and agreed upon by patient/family. SUBJECTIVE: for L knee pain that onset without injury about 3 mo. ago. Family member gives PT a letter from sister of pt. describing pt. hx of bipolar disorder limiting him as a historian, recent weight loss, and difficulty with new dentures affecting his mood. Pt. is motivated to improve his mobility and strength which as been lossed due to significant recent weight loss. Within the letter family member describes dx of LLE leg pain that radiates from the back, hip and below the L knee. Pt. has had x-ray, MRI, EMG and referred to PT by his PCP. Pain makes it difficult for pt to sleep. He has a habit of sitting with his feet curled under him when hes on the computer. Pt. is currenlty in treatment for mental health and DM II issues. Pt. is pleasant and cooperative. Pt. sister sees him every weekend. Pt. lives with his parents in [place]. Patient Goals: walking up and down stairs with reduced L knee pain. Functional Limitations: stair negotiation, weight bearing Prior Level of Function: Independent without limitations Relevant History Past Relevant Medical Conditions: Diabetes (bipolar disorder) Hobbies / Interests: watching television Intake Information: Prescription present Previous Treatment: Pain meds Falls Interview: No positive findings with falls interview Pain: Pain Pain Level: 0 Pain Location: Knee - Left Description: Aching Frequency: Sitting Post Treatment Pain Post Treatment Pain Location: Knee - Left PROMIS Scales 07/27/2024 Higher is Better Phys Func - Score 33 (moderate dysfunction) Phys Func - Percentile 4 Self-Eff Symptom - Score 40 (Average) Self-Eff Symptom - Percentile 16 T-scores: mean of general population = 50. 5 points is clinically meaningfully difference Percentiles provide an indication of how the patient's score ranks in relation to the general population. Higher percentile rankings indicate better function/quality of life. 50th percentile is the average of the general population and indicates half of respondents had a worse score. OBJECTIVE MEASURES WITH LEVEL OF FUNCTION: Cognition Cognition: Mood (bipolar disorder per family member letter) Posture / Alignment Posture: Slump Knee Observations L Knee Presents with: Comments L Knee Presents with Comment (more content not included)... [facility] 07-30-2024 History of Present illness Narrative Images from the original note were not included. Episode Visit Count: 1 Therapist That Will Accept/Oversee The Plan Of Care: Neha Driver Start of Care Date: 07/30/24 Onset Date: 04/29/24 Plan of Care Certification Date: 07/30/24 Next Certification Due Date: 09/10/24 Patient Identified by Name and Date of : Yes REHABILITATION AND SPORTS THERAPY PHYSICAL THERAPY EVALUATION PLAN OF CARE: Assessment: Danny Heath presents with diagnosis of weakness of left lower extremity that interferes with stair negotiation, weight bearing . He presents with impairments in ADL's, balance, flexibility, gait, independence in exercise, joint mobility, overall function, patient reported outcome measures, posture, range of motion, strength, symptom management, and tissue tenderness. Patient did not complete the PROMIS (Patient Reported Outcome Measures Information System) due to family reports of pt. Being a limited historian. Prognosis for therapy is Fair due to: poor historian, coping skills, clinical presentation, multiple co- morbidities, chronic nature of impairments . He will benefit from skilled therapy services to meet the goals established for this plan of care as noted below. Goals for Episode of Care: established 07/30/24 [place] in home exercise program. Patient will decrease pain to 1-2/10 with functional activities to allow patient to improve ambulation, transfers, and standing tolerance for ADLs. Patient will increase active ROM of bilateral knee extension to 0 degrees extension to allow pt to to improve postural alignment, to improve performance of ADLs, to improve gait mechanics / gait pattern , and to decrease falls risks . Patient will demonstrate increase in Lquadriceps strength to 4/5 during manual muscle testing in order to improve function for prior functional tasks. Normal gait. Reciprocal stair negotiation. Patient Goals: walking up and down stairs with reduced L knee pain. Time Frame for Goals and Treatment : 09/10/24 Planned Interventions, Frequency, and Duration: Current Frequency: 1x/week Duration: 6 weeks Total Number of Visits Planned: 6 Planned Treatment Interventions: Gait Training (43994), Self-long-term management (21577), Therapeutic activities (45656), Manual therapy (52105), Neuromuscular re-education (66520), Therapeutic exercise (69091) PLAN FOR NEXT VISIT: Patient demonstrates good understanding of plan of care and treatment. The above goals and plan of care were discussed and agreed upon by patient/family. SUBJECTIVE: for L knee pain that onset without injury about 3 mo. ago. Family member gives PT a letter from sister of pt. describing pt. hx of bipolar disorder limiting him as a historian, recent weight loss, and difficulty with new dentures affecting his mood. Pt. is motivated to improve his mobility and strength which as been lossed due to significant recent weight loss. Within the letter family member describes dx of LLE leg pain that radiates from the back, hip and below the L knee. Pt. has had x-ray, MRI, EMG and referred to PT by his PCP. Pain makes it difficult for pt to sleep. He has a habit of sitting with his feet curled under him when hes on the computer. Pt. is currenlty in treatment for mental health and DM II issues. Pt. is pleasant and cooperative. Pt. sister sees him every weekend. Pt. lives with his parents in [place]. Patient Goals: walking up and down stairs with reduced L knee pain. Functional Limitations: stair negotiation, weight bearing Prior Level of Function: Independent without limitations Relevant History Past Relevant Medical Conditions: Diabetes (bipolar disorder) Hobbies / Interests: watching television Intake Information: Prescription present Previous Treatment: Pain meds Falls Interview: No positive findings with falls interview Pain: Pain Pain Level: 0 Pain Location: Knee - Left Description: Aching Frequency: Sitting Post Treatment Pain Post Treatment Pain Location: Knee - Left PROMIS Scales 07/27/2024 Higher is Better Phys Func - Score 33 (moderate dysfunction) Phys Func - Percentile 4 Self-Eff Symptom - Score 40 (Average) Self-Eff Symptom - Percentile 16 T-scores: mean of general population = 50. 5 points is clinically meaningfully difference Percentiles provide an indication of how the patient's score ranks in relation to the general population. Higher percentile rankings indicate better function/quality of life. 50th percentile is the average of the general population and indicates half of respondents had a worse score. OBJECTIVE MEASURES WITH LEVEL OF FUNCTION: Cognition Cognition: Mood (bipolar disorder per family member letter) Posture / Alignment Posture: Slump Knee Observations L Knee Presents with: Comments L Knee Presents with Comments: unremarkable Sensation - Lower Extremity LE Light Touch Sensation: Grossly Intact LE AROM R Knee Extension: -17 Degrees R Knee Flexion: 121 Degrees L Knee Extension: -17 Degrees L Knee Flexion: 130 Degrees LE Strength R Hip Flexion (L2): 3+/5 L Hip Flexion (L2): 2-/5 Special Tests - Hip and Spine Hip and Spine Special Tests: SLR Test, FADDIR Test, SETH Test, Active SLR SLR Test: Left Positive, Right Negative SETH Test: Right Negative, Left Negative FADDIR Test: Left Positive, Right Negative Active SLR: Left Positive, Right Negative Special Tests - Knee Knee Special Tests: Camryn's Test Camryn's Test: Left Negative, Right Negative Gait Gait: Independent Gait Distance (feet): 40' Gait Device: None Gait Deviations: Left Lower Extremity Gait Deviations Left Lower Extremity: Steppage gait, Push off during terminal stance decreased, Lacks hip extension beyond mid-stance, Knee stability during stance phase decreased, Lacks full knee extension during terminal swing, Heel strike during initial stance decreased Functional Performance Test Results 30 Second Chair Stand Test: 13 reps Education: Education Learning Preferences: Demonstration, Explanation, Performance, Printed Materials Barriers: Emotions Learning/educational needs: Home exercise program, Plan of Care, Gait Training Education Provided: Yes, see treatment interventions for education provided Education Provided To: Patient Education Mode/Type: Demonstration, Explanation/Discussion, Literature/Printed Materials, Performance Response to Education/Teach Back: States/Identifies, Return Demonstration TREATMENT: PT Treatment Interventions: Therapeutic Exercise, Self-Halfway Management Evaluation Therapeutic Exercise: 1: *Access Code: [email or web address] URL: [email or web address] Date: 07/30/2024 Prepared by: Neha aGyle Exercises - Seated Sciatic Tensioner - 1-2 x daily - 7 x weekly - 3 sets - 5 reps - 2 hold - Sit to Stand with Counter Support - 1-2 x daily - 7 x weekly - 3 sets - 5 reps - Standing Hip Abduction with Counter Support - 1-2 x daily - 7 x weekly - 4 sets - 15 reps - Standing Hip Extension with Counter Support - 1-2 x daily - 7 x weekly - 4 sets - 15 reps Skilled Intervention: Patient was educated in proper exercise technique and purpose for exercises. Skilled judgment was used in selection of appropriate interventions. Provided written instruction for home exercise program to facilitate proper performance and compliance. Correct performance of therapeutic exercises was facilitated with verbal, visual, and tactile cuing. Educated patient on rationale for performing exercises in regards to decreasing fatigue , including balance, increase ease of ADL, and ROM and function . Patient education as noted. Self-Halfway Management: 1: encouraged pt. to move at home as tolerated, avoid prolonged sitting 2: discussed sitting posture - handout provided 3: answered pt. questions regarding ozempic and protein -- advised pt. to discuss an appropriate protein option with physician and discuss his question regarding ozempic as a possible cause of increased pain. Skilled Intervention: Skilled judgment in the selection of proper modification for activity of daily living/home management based on clinical presentation, deficits, and needs. Provided written instruction for activities of daily living techniques to facilitate proper performance and compliance. Reviewed patient specific diagnosis in relation to activities of daily living/home management. Activity progression based on professional judgement. Moderate verbal cues for maintaining neutral spine alignment. Provided written instruction for home program to facilitate proper performance and compliance. Correct performance of home program was facilitated with verbal, visual, and tactile cueing. Billing * Evaluation Low Complexity: 1 Unit Therapeutic Exercise Treatment Minutes: 15 Self-Care/Home Management Treatment Minutes: 10 Skilled Treatment Time Minutes (timed and untimed codes): 45 Total Session Time (minutes): 45 Session Start Time : 1105 Session Stop Time : 1150 Neha Driver PT Program_ID:[id number] Access Code: [email or web address] URL: [email or web address] Date: 07-30-2024 Prepared By: Neha Driver Program Notes Exercises - Seated Sciatic Tensioner - 1-2 x daily - 7 x weekly - 3 sets - 5 reps - Sit to Stand with Counter Support - 1-2 x daily - 7 x weekly - 3 sets - 5 reps - Standing Hip Abduction with Counter Support - 1-2 x daily - 7 x weekly - 4 sets - 15 reps - Standing Hip Extension with Counter Support - 1-2 x daily - 7 x weekly - 4 sets - 15 reps documented in this encounter [facility] Evaluation note No assessment inform ation available [facility] Work Phone: Evaluation note Diagnosis Onset Date Diabetes chronic Hypothyroidism chronic Diabetes chronic Hypothyroidism chronic [facility] Work Phone: Evaluation note* Diagnosis Onset Date Resolution Status Overweight acute Diabetes chronic Hypothyroidism chronic Diabetes chronic Hypothyroidism chronic [facility] Work Phone: Evaluation note* Diagnosis Onset Date Resolution Status Elevated liver enzymes chron ic [facility] Work Phone: Evaluation note* Diagnosis Onset Date Resolution Status Diabetes chronic Hypothyroidism chronic Overweight chronic Elevated liver enzymes chron ic Diabetes chronic Hypothyroidism chronic Overweight chronic [facility] Work Phone: Evaluation note* Diagnosis Weakness of left lower extremity- Primary [facility] Diagnosis Weakness of left lower extremity- Primary [facility] Diagnosis Weakness of left lower extremity- [facility] Diagnosis Weakness of left lower extremity- Primary [facility] Diagnosis Weakness of left lower extremity- [facility] Diagnosis Weakness of left lower extremity- Primary [facility] Diagnosis Weakness of left lower extremity- Primary documented in this encounter [facility] for referral (narrative)No reason for referral information availableWKettering Health Work Phone: Summary Purpose Family History No Family History Records Found Relationship Condition Age at Onset Recorded Date/T dilan Not Specified History of transfusion of whole blood Un known Diabetes mellitus Unknown Alcohol abuse Unknown High blood cholesterol Unknown Anemia Unknown Arthritis Unknown Cardiac disease Unknown Mental disorder Unknown Myocardial infarction Unknown Hypertension Unknown Disorder of thyroid Unknown Advance Directives No Advanced Directives Records Found Advance Directive Response Recorded Date/ Time Living Will No December 19 10:45pm Do you have a Healthcare Power of Physician/Allergy/Immunology? No December 19, 2024 10:45pm Chief Complaint and Reason for Visit Chief Complaint EORDER FROM DR CARRASCO NER ALSO Chief Complaint 7 w fu 3 M FU Reason for Visit Diabetes Hypothyroidism Diabetes Hypothyroidism Chief Complaint 3 M FU 3 M FU EORDER Reason for Visit Overweight Diabetes Hypothyroidism Diabetes Hypothyroidism Chief Complaint Consult INT LABS Reason for Visit Elevated liver enzym es Chief Complaint 8 M FU, Cx 07/04 5 m fu 5 Wk FU ABNORMAL LEVELS OF SERUM ENZYMES Reason for Visit Diabetes Hypothyroidism Overweight Elevated liver enzymes Diabetes Hypothyroidism Overweight Chief Complaint Admit Date abn labs December 19, 2024 9:22pm [email or web address] April 06, 2025 5:52p m Additional Source Comments (unrecognized sect ion and content) No Status Records FoundNo Status Records FoundNo Status Records Found INFORMATION SOURCE (unrecogn ized section and content) DATE CREATED AUTHOR 12/24/2018 [facility] ([place]) DATE CREATED AUTHOR AUTHOR'S ORGANIZ ATION 10/27/2024 [facility] DATE CREATED AUTHOR AUTHOR'S ORGANIZ ATION 04/29/2025 [facility] Goals (unrecognized section and content) Goals may be documented in a n alternate sectionGoals may be documented in an alternate sectionGoals may be documented in an alternate sectionGoals may be documented in an alternate sectionGoals may be documented in an alternate sectionGoals may be documented in an alternate sectionGoals may be documented in an alternate section Care Teams (unrecognized sec tion and content) Team Status: Active Member Role Status Dates Dr. Denise De Leon MD Family Provider Active Dr. Denise Reyes MD Primary Care Provider Active Team Status: Inactive Member Role Status Dates Dr. Denise Reyes MD Primary Care Provider, Referr ing Provider Active WILLIAM Gonzalez Attending Provider Active Team Status: Inactive Member Role Status Dates Dr. Denise Reyes MD Primary Care Provider Active WILLIAM Gonzalez Attending Provider, Referring Pr ovider Active Team Status: Inactive Member Role Status Dates Dr. Denise Reyes MD Primary Care Provider, Referr ing Provider Active Dr. Yasmany Borges DO Attending Provider Active Team Status: Inactive Member Role Status Dates Dr. Denise Reyes MD Primary Care Provider Active Dr. Yasmany Borges DO Attending Provider, Referring Provider Active Team Status: Inactive Member Role Status Dates Dr. Denise Reyes MD Referring Provider Active Dr. Yasmany Borges DO Attending Provider Active Team Status: Inactive Member Role Status Dates WILLIAM Gonzalez Attending Provider Active Team Status: Inactive Member Role Status Dates Dr. Yasmany Borges DO Attending Provider, Referring Provider Active Dr. Denise Reyes MD Primary Care Provider Active Team Status: Active Member Role Status Dates Dr. Denise Reyes MD Primary Care Provider Active Team Status: Inactive Member Role Status Dates Dr. Denise Reyes MD Primary Care Provider Active Start: December 19, 2024 End: December 19, 2024 Dr. Denise Reyes MD Attending Provider Active Start: December 19, 2024 End: December 19, 2024 Dr. Denise Reyes MD Referring Provider Active Start: December 19, 2024 End: December 19, 2024 Team Status: Inactive Member Role Status Dates Dr. Denise Reyes MD Primary Care Provider Active Start: December 19, 2024 End: December 20, 2024 Dr. Jorge Alberto Durand DO Attending Provider Active Start: December 19, 2024 End: December 20, 2024 Dr. Jorge Alberto Durand DO Emergency Provider Active Start: December 19, 2024 End: December 20, 2024 Team Status: Inactive Member Role Status Dates Dr. Denise Reyes MD Primary Care Provider Active Start: January 30, 2025 End: January 30, 2025 Dr. Denise Reyes MD Attending Provider Active Start: January 30, 2025 End: January 30, 2025 Dr. Denise Reyes MD Referring Provider Active Start: January 30, 2025 End: January 30, 2025 Team Status: Active Member Role Status Dates Dr. Denise Reyes MD Primary Care Provider Active Start: April 03, 2025 Dr. Denise Reyes MD Attending Provider Active Start: April 03, 2025 Team Status: Inactive Member Role Status Dates Dr. Denise Reyes MD Primary Care Provider Active Start: April 06, 2025 End: April 06, 2025 Ed Physician Provider Emergency Provider Active Start: April 06, 2025 End: April 06, 2025 Team Status: Inactive Member Role Status Dates Dr. Denise Reyes MD Primary Care Provider Active Start: April 03, 2025 End: April 03, 2025 Dr. Denise Reyes MD Attending Provider Active Start: April 03, 2025 End: April 03, 2025 Source Comments (unrecognize d section and content) In the event this informatio n is protected by the Federal Confidentiality of Alcohol and Drug Abuse Patient Records regulations: The Federal rules restrict any use of the information to criminally investigate or prosecute any alcohol or drug abuse patient.[facility] the event this information is protected by the Federal Confidentiality of Alcohol and Drug Abuse Patient Records regulations: The Federal rules restrict any use of the information to criminally investigate or prosecute any alcohol or drug abuse patient.[facility] the event this information is protected by the Federal Confidentiality of Alcohol and Drug Abuse Patient Records regulations: The Federal rules restrict any use of the information to criminally investigate or prosecute any alcohol or drug abuse patient.[facility] the event this information is protected by the Federal Confidentiality of Alcohol and Drug Abuse Patient Records regulations: The Federal rules restrict any use of the information to criminally investigate or prosecute any alcohol or drug abuse patient.[facility] the event this information is protected by the Federal Confidentiality of Alcohol and Drug Abuse Patient Records regulations: The Federal rules restrict any use of the information to criminally investigate or prosecute any alcohol or drug abuse patient.[facility] the event this information is protected by the Federal Confidentiality of Alcohol and Drug Abuse Patient Records regulations: The Federal rules restrict any use of the information to criminally investigate or prosecute any alcohol or drug abuse patient.[facility] the event this information is protected by the Federal Confidentiality of Alcohol and Drug Abuse Patient Records regulations: The Federal rules restrict any use of the information to criminally investigate or prosecute any alcohol or drug abuse patient.[facility] the event this information is protected by the Federal Confidentiality of Alcohol and Drug Abuse Patient Records regulations: The Federal rules restrict any use of the information to criminally investigate or prosecute any alcohol or drug abuse patient.[facility] the event this information is protected by the Federal Confidentiality of Alcohol and Drug Abuse Patient Records regulations: The Federal rules restrict any use of the information to criminally investigate or prosecute any alcohol or drug abuse patient.[facility] the event this information is protected by the Federal Confidentiality of Alcohol and Drug Abuse Patient Records regulations: The Federal rules restrict any use of the information to criminally investigate or prosecute any alcohol or drug abuse patient.[facility] Reason for Visit (unrecogniz ed section and content) Reason Comments PT Discharge Specialty Diagnoses / Procedures Referred By Contac t Referred To Contact Physical Therapy / PHYSICAL THERAPY Diagnoses Leg weakness ( left) Procedures NEW RS PT ORTH Denise Khan MD [address] [place] [address] Neha Driver, BRINDA Referral ID Status Reason Start Date Expiration Date V isits Requested Visits Authorized [id number] Authorized 11/05/2023 11/04/2024 99 99 Reason Comments Physical Therapy Reason Comments PT Progress Note Reason Comments PT Eval FOR RECORDS PERTAINING TO PATIENTS WHO ARE OR HAVE BEEN ENROLLED IN A CHEMICAL DEPENDENCY/SUBSTANCEABUSE PROGRAM, SOME INFORMATION MAY BE OMITTED. This clinical summary was aggregated from multiple sources. Caution should be exercised in using it in the provision of clinical care. This summary normalizes information from multiple sources, and as a consequence, information in this document may materially change the coding, format and clinical context of patient data. In addition, data may be omitted in some cases. CLINICAL DECISIONS SHOULD BE BASED ON THE PRIMARY CLINICAL RECORDS. [facility] [employer] provides no warranty or guarantee of the accuracy or completeness of information in this document.
--- NOTE | 2025-05-02 00:19 | EX.ED.CRITCA ---
HPI History of Present Illness Chief Complaint: Overdose [facility] Medical History Bipolar disorder Contact dermatitis due to poison los Dextromethorphan use disorder, mild, abuse Diabetes Home Medications ?Medication ?Instructions ?Recorded ?Last Taken ?Type cholecalciferol (vitamin D3) 50 50 mcg PO DAILY 12/24/23 Unknown History mcg (2,000 unit) capsule flash glucose scanning reader #1 ea 12/24/23 Unknown Rx (FreeStyle Aniya 2 Wildrose) lithium carbonate 450 mg 450 mg PO DAILY 30 days #60 tabs 01/31/24 Unknown History tablet,extended release lurasidone 40 mg tablet (Latuda) 60 mg PO DAILY 01/31/24 Unknown History melatonin 5 mg tablet 5 mg PO HS 01/31/24 Unknown History BD Ultra-Fine Hilary Pen Needle 32 #100 ea 03/24/24 Unknown Rx gauge x 5/32 (pen needle, diabetic) flash glucose sensor (FreeStyle #6 ea 05/15/24 Unknown Rx Aniya 2 Sensor kit) semaglutide 1 mg/dose (4 mg/3 mL) 1 mg (0.75 mL) subcut QWEEK #9 mL 05/15/24 Unknown Rx subcutaneous pen injector (Ozempic) metformin 1,000 mg tablet 1,000 mg PO BIDWMEAL #60 tabs 07/28/24 Unknown Rx insulin degludec 100 unit/mL (3 30 unit subcut DAILY 05/02/25 Unknown History mL) subcutaneous pen (Tresiba FlexTouch U-100 insulin) insulin lispro 100 unit/mL 1 sliding scale dose subcut PRN 05/02/25 Unknown History subcutaneous pen PRN hyperglycemia levothyroxine 200 mcg tablet 175 mcg PO DAILY 05/02/25 Unknown History rosuvastatin 5 mg tablet 40 mg PO DAILY 05/02/25 Unknown History Allergy/AdvReac Type Severity Reaction Status Date / Time No Known Allergies Allergy Verified 05/02/25 00:06 Family History Other Alcohol abuse Anemia Arthritis Diabetes H/O transfusion of whole blood Heart disease High cholesterol Hypertension Mental disorder Myocardial infarction Thyroid disorder Social History (Updated 12/19/24 @ 21:45 by Macy Quigley) household members: family housing: house Smoking Status: Current every day smoker tobacco type: cigars alcohol intake: never substance use type: does not use what type of physical activity do you participate in: walking frequency: daily EXAM Physical Exam Const Vital Signs: 05/01/25 23:57 05/02/25 01:01 05/02/25 02:00 Temperature 98.6 F Temperature Source Oral Pulse Rate 100 90 84 Respiratory Rate 18 8 L 14 Blood Pressure 147/106 H 144/95 H 141/88 H Blood Pressure Mean 119 111 105 Pulse Ox 97 98 98 Oxygen Delivery Method Room Air Room Air Room Air 05/02/25 03:28 05/02/25 04:07 05/02/25 05:20 Temperature Temperature Source Pulse Rate 88 Respiratory Rate 16 Blood Pressure 132/93 H 131/88 H 134/89 H Blood Pressure Mean 106 102 104 Pulse Ox 97 Oxygen Delivery Method MDM MDM MDM Narrative Medical decision making narrative: HISTORY OF PRESENT ILLNESS: Chief complaint: Accidental overdose 44year-old male history of bipolar disorder, elevated liver enzymes, type 2 diabetes presents with accidental overdose. Patient denies suicidal ideation but notes he usually consumes 3 to 6 boxes of cough and cold medicine per day. He notes at 730 p.m. he consumed 6 boxes of cough and cold medicine. He noted issues with sweating, high blood sugar. He notes he may be addicted to the medication. Patient denies chest pain, shortness of breath, abdominal pain, nausea or vomiting. Per the patient's sister/guardian she states he took an additional dose of his short acting insulin as well. He notes he did not take additional lithium today. REVIEW OF SYSTEMS: Pertinent positives: Slurred speech, sweating, hyperglycemia Pertinent negatives: Headache, chest pain, shortness of breath otherwise as per HPI PHYSICAL EXAM: Nursing triage notes reviewed, Vital signs reviewed Constitutional: please see mdm HENT: MMM Eyes: Pupils equal round and reactive to light, Extraocular muscles intact Neck: No stridor, no JVD, full neck ROM Lungs: Clear to auscultation, No wheezing or rales. No increased work of breathing, no conversational dyspnea, no accessory muscle use, no nasal flaring. No respiratory distress noted Heart: Regular rate and rhythm, No murmurs, No rubs and No gallops, 2+ distal pulses (radial, femoral, posterior tibial) in all extremities Abdomen: Soft, there is no tenderness, rigidity, rebound or guarding, no obvious peritoneal signs, no palpable pulsatile abdominal masses, no auscultated abdominal bruit : No CVAT Extremities: No edema Neuro: Alert and oriented x3, neuro exam at baseline, cranial nerves II through XII are intact. No pain with extraocular muscle movement. There is negative test of skew. 5 of 5 strength in upper and lower extremities in flexion extension. Intact sensation to light touch in upper and lower extremity dermatomes. No truncal or extremity ataxia. No dysdiadochokinesia. Normal gait. 2+ reflexes in upper and lower extremities. No meningeal signs. Negative Babinski. NIH of 0. Skin: No rash or lesions noted MEDICAL DECISION MAKING: Chief Complaint: please see [facility] External records reviewed: Reviewed prior ED visit Factors affecting care: as per [facility] Social determinants of health: history mental health History obtained from others: none Consults: none [facility] Narrative: The patient was initially hemodynamically stable, afebrile and nontoxic-appearing. Exam without focal neurologic deficits. No slurred speech was noted on my exam. NIH of 0 I considered the following differential diagnosis: ICH, intracranial mass, drug reduction, Tylenol salicylate overdose, metabolic encephalopathy, electrolyte disturbances, severe inflammation, alcohol intoxication I obtained a broad lab and imaging workup to further determine if the patient was suffering from a life-threatening etiology. ALL IMAGES (IF OBTAINED) HAVE BEEN PERSONALLY REVIEWED AND INTERPRETED BY MYSELF. EKG with normal sinus rhythm, right axis deviation, right bundle branch block, prolonged QTc at 526 (likely owing to multiple QT still prolonged medication patient currently takes), no STEMI CBC leukocytosis suggestive of systemic inflammation however it is similar to prior studies, no anemia or thrombocytopenia noted Tylenol, salicylate levels are negative Serum alcohol level is negative Lipase is wnl indicating no pancreatic inflammation. BMP without evidence of significant electrolyte abnormalities, no anion gap, no acute kidney injury. Glucose on BMP was noted to be severely low. The patient did not have any symptoms of hypoglycemia and he was eating a sandwich and drinking orange juice. Will continue sugared beverages and repeat glucose regularly. LFTs without new hyperbilirubinemia, noted essentially baseline elevations in transaminases and alk phos [place] level elevated 1.4 with a lab reference range of 0.6-1.2. Level is not greater than 2 which was reassuring. No clear clinical evidence of toxicity, no GI symptoms noted, there is no muscle fasciculations, clonus, ataxia, muscle weakness, nystagmus agitation or lethargy noted no tremor, calcium levels are normal. CT head shows no evidence of intracranial findings (no mass or bleed) Urinalysis shows no evidence of urinary inflammation suggestive of UTI Urine tox screen negative Repeat blood sugar remained stable the patient was medically cleared. Discussed with behavioral social work. Awaiting behavioral social work evaluation and possible inpatient psychiatric placement The patient and/or family, caregivers express understanding. The patient and/or family, caregivers agrees with the plan. Shared decision making: I will have a discussion with the patient and or visitors regarding risk/benefits of further testing or admission. They will be made aware of of the risk/benefits inherent in this decision they will be given the opportunity to voice understanding. Total critical care time today provided was at least 0 minutes. This excludes separately billable procedures. Critical care time (if documented) is secondary to the patient having high probability of clinically significant/life threatening deterioration in the patient's condition which required my urgent intervention. Impression: 1. Dextromethorphan use disorder 2. History bipolar disorder 3. Elevated lithium level Dispo: Pending behavioral health evaluation and final disposition. Signed out to a.m. physician. This note was generated with [employer] dictation software. It may contain incorrect words, spelling, and punctuation that were not noted in review of the chart prior to signing. Lab Data Labs: Laboratory Results - last 24 hr 05/02/25 05/02/25 05/02/25 01:00 01:08 02:05 WBC 13.3 H RBC 4.50 L Hgb 13.2 Hct 40.7 MCV 90.4 MCH 29.3 MCHC 32.4 RDW Std Deviation 45.6 H RDW Coeff of Sadaf 13.9 Plt Count 407 MPV 9.0 Immature Gran % (Auto) 0.400 Neut % (Auto) 59.4 Lymph % (Auto) 26.3 [place] % (Auto) 8.1 Eos % (Auto) 5.3 H Baso % (Auto) 0.5 Absolute Neuts (auto) 7.9 H Absolute Lymphs (auto) 3.49 Nucleated RBC % 0 Sodium Cancelled 138 Potassium Cancelled 4.2 Chloride Cancelled 105 Carbon Dioxide Cancelled 21.4 Anion Gap Cancelled 12 BUN Cancelled 19 Creatinine Cancelled 0.91 Estim Creat Clear Calc Cancelled 109.19 Est GFR (MDRD) Non-Af Cancelled 109 BUN/Creatinine Ratio Cancelled 20.8 H Glucose Cancelled 41 L* Calcium Cancelled 9.8 Total Bilirubin Cancelled < 0.15 Direct Bilirubin Cancelled < 0.08 AST Cancelled 128 H ALT Cancelled 203 H Alkaline Phosphatase Cancelled 225 H Total Protein Cancelled 6.7 Albumin Cancelled 4.0 Globulin Cancelled 2.7 Lipase Cancelled 68 Urine Color Urine Clarity Urine pH Ur Specific [place] Urine Protein Urine Glucose (UA) Urine Ketones Urine Occult Blood Urine Nitrite Urine Bilirubin Urine Urobilinogen Ur Leukocyte Esterase Urine RBC Urine WBC Ur Squamous Epith Cells Urine Bacteria Urine Mucus Salicylates < 0.5 L Urine Opiates Screen U Buprenorphine Qual Ur Oxycodone Screen Urine Methadone Screen Urine Fentanyl Screen Acetaminophen < 5.0 L Ur Barbiturates Screen Ur Phencyclidine Scrn Ur Amphetamines Screen U Benzodiazepines Scrn [place] 1.44 H* Urine Cocaine Screen U Cannabinoids Screen Ethyl Alcohol < 10.1 POC Glucose 78 05/02/25 05/02/25 05/02/25 02:18 03:26 03:31 WBC RBC Hgb Hct MCV MCH MCHC RDW Std Deviation RDW Coeff of Sadaf Plt Count MPV Immature Gran % (Auto) Neut % (Auto) Lymph % (Auto) [place] % (Auto) Eos % (Auto) Baso % (Auto) Absolute Neuts (auto) Absolute Lymphs (auto) Nucleated RBC % Sodium Potassium Chloride Carbon Dioxide Anion Gap BUN Creatinine Estim Creat Clear Calc Est GFR (MDRD) Non-Af BUN/Creatinine Ratio Glucose Calcium Total Bilirubin Direct Bilirubin AST ALT Alkaline Phosphatase Total Protein Albumin Globulin Lipase Urine Color Yellow Urine Clarity Clear Urine pH 6.0 Ur Specific [place] 1.020 Urine Protein 100 H Urine Glucose (UA) 1000 H Urine Ketones Negative Urine Occult Blood Negative Urine Nitrite Negative Urine Bilirubin Negative Urine Urobilinogen Normal Ur Leukocyte Esterase Negative Urine RBC 0 SEEN Urine WBC 0 SEEN Ur Squamous Epith Cells 0 SEEN Urine Bacteria 0 SEEN Urine Mucus 0 SEEN Salicylates Urine Opiates Screen NEGATIVE U Buprenorphine Qual NEGATIVE Ur Oxycodone Screen NEGATIVE Urine Methadone Screen NEGATIVE Urine Fentanyl Screen PRESUMPTIVE POSITIVE Acetaminophen Ur Barbiturates Screen NEGATIVE Ur Phencyclidine Scrn NEGATIVE Ur Amphetamines Screen NEGATIVE U Benzodiazepines Scrn NEGATIVE [place] Urine Cocaine Screen NEGATIVE U Cannabinoids Screen NEGATIVE Ethyl Alcohol POC Glucose 54 L 148 H 05/02/25 05:57 WBC RBC Hgb Hct MCV MCH MCHC RDW Std Deviation RDW Coeff of Sadaf Plt Count MPV Immature Gran % (Auto) Neut % (Auto) Lymph % (Auto) [place] % (Auto) Eos % (Auto) Baso % (Auto) Absolute Neuts (auto) Absolute Lymphs (auto) Nucleated RBC % Sodium Potassium Chloride Carbon Dioxide Anion Gap BUN Creatinine Estim Creat Clear Calc Est GFR (MDRD) Non-Af BUN/Creatinine Ratio Glucose Calcium Total Bilirubin Direct Bilirubin AST ALT Alkaline Phosphatase Total Protein Albumin Globulin Lipase Urine Color Urine Clarity Urine pH Ur Specific [place] Urine Protein Urine Glucose (UA) Urine Ketones Urine Occult Blood Urine Nitrite Urine Bilirubin Urine Urobilinogen Ur Leukocyte Esterase Urine RBC Urine WBC Ur Squamous Epith Cells Urine Bacteria Urine Mucus Salicylates Urine Opiates Screen U Buprenorphine Qual Ur Oxycodone Screen Urine Methadone Screen Urine Fentanyl Screen Acetaminophen Ur Barbiturates Screen Ur Phencyclidine Scrn Ur Amphetamines Screen U Benzodiazepines Scrn [place] Urine Cocaine Screen U Cannabinoids Screen Ethyl Alcohol POC Glucose 123 H Radiography Diagnostic Testing: Clinical Impression(s) from Imaging Studies Brain CT 05/02/25 00:39 IMPRESSION: No acute intracranial findings. Reading Location: [place] [address] Chest X-Ray 05/02/25 00:39 IMPRESSION: No acute findings [facility] T[facility] Chief Complaint: Overdose ED Provider: Narayan Mckenzie Dx/Rx/DC Orders Prescriptions: No Action lithium carbonate 450 mg tablet extended release 450 mg PO DAILY 30 Days Qty: 60 Patient Comments: Rx Instructions: 900 mg qhs Latuda 40 mg tablet 60 mg PO DAILY melatonin 5 mg tablet 5 mg PO HS Patient Comments: TAKE 1 TABLET BY MOUTH AT BEDTIME cholecalciferol (vitamin D3) 50 mcg (2,000 unit) capsule 50 mcg PO DAILY (DME) FreeStyle Aniya 2 Wildrose Misc See Rx Instructions .Route Qty: 1 0RF Rx Instructions: As directed Ozempic 1 mg/dose (4 mg/3 mL) pen injector 1 mg subcut QWEEK Qty: 9 0RF (DME) FreeStyle Aniya 2 Sensor Kit See Rx Instructions .Route Qty: 6 0RF Rx Instructions: 1 sensor q 14 days insulin lispro 100 unit/mL insulin pen 1 sliding scale dose SUBCUT PRN PRN (Reason: hyperglycemia) Patient Comments: INJECT PER SLIDING SCALE DIRECTED: IF BLOOD GLUCOSE IS 250-299: 2 UNITS, 300-349:4 UNITS, 350-400: 6 UNITS, GREATER THAN 400: 8 UNITS. DO NOT INJECT MORE THAN EVERY 8 HOURS. insulin degludec [Tresiba FlexTouch U-100] 100 unit/mL (3 mL) insulin pen 30 unit subcut DAILY levothyroxine 200 mcg tablet 175 mcg PO DAILY rosuvastatin 5 mg tablet 40 mg PO DAILY (DME) pen needle, diabetic [BD Ultra-Fine Hilary Pen Needle] 32 gauge x 5/32 needle See Rx Instructions .ROUTE .MEDSUPPLY Qty: 100 8RF Rx Instructions: tid metformin 1,000 mg tablet 1,000 mg PO BIDWMEAL Qty: 60 0RF Primary Care Provider: Freddy Chowdhury Referrals: Freddy Chowdhury MD [Primary Care Provider] - Print Language: Sami
--- NOTE | 2025-05-02 00:39 | RAD_ITS ---
PROCEDURE: CHEST 1 VIEW (PORTABLE) 05/02/2025 REASON FOR EXAM: WEAKNESS TECHNIQUE: Frontal view of the chest. COMPARISON: No FINDINGS: Normal heart size. Well inflated lungs. No consolidation, effusion, or pneumothorax. RAD/Chest 1 View (Portable) IMPRESSION: No acute findings Reading Location: [place] [id number]
--- NOTE | 2025-05-02 00:39 | CT_ITS ---
PROCEDURE: BRAIN/HEAD WITHOUT CONTRAST 05/02/2025 REASON FOR EXAM: SLURRED SPEECH TECHNIQUE: BRAIN/HEAD WITHOUT CONTRAST Coronal and Sagittal reconstruction series were provided. One or more dose reduction techniques were used (e.g., Automated exposure control, adjustment of the mA and/or kV according to patient size, use of iterative reconstruction technique. RADIATION DOSE SUMMARY: CTDlvol: 45 mGy DLP: 779 mGycm COMPARISON: No FINDINGS: Minimal white matter change. No atrophy. No definite acute abnormal brain densities. No intracranial hemorrhage. No hydrocephalus 6 or midline shift. No acute scalp or skull pathology. Left maxillary sinus opacification. CT/Brain/Head without Contrast IMPRESSION: No acute intracranial findings. [facility]
[2025-05-02 01:01] VITALS: BP 144/95; PULSE 90; RESP 8; O2SAT 98
[2025-05-02 01:10] LABS: Absolute Lymphocyte Count 3.49 X10^3/uL (0.83-4.51); Absolute Neutrophil Count 7.9 X10^3/uL (2.0-7.7); Basophil# 0.07 X10^3/uL; Basophil% 0.5 % (0-1); Eosinophil# 0.71 X10^3/uL; Eosinophils% 5.3 % (0-5); Hematocrit 40.7 % (40-54); Hemoglobin 13.2 g/dL (13.0-16.5); Lymphocyte # 3.49 X10^3/ul (0.83-4.51); Lymphocyte % 26.3 % (19-41); Mean Corp Hgb Conc 32.4 g/dL (32-36); Mean Corpuscular Hgb 29.3 pg (27.0-32.0); Mean Corpuscular Volume 90.4 fL (80-94); Monocyte# 1.08 X10^3/uL; Monocyte% 8.1 % (0-10); NRBC Flagged by Analyzer 0 % (0-5); Neutrophil # 7.88 X10^3/uL (2.7-7.7); Neutrophil % 59.4 % (47-70); Platelet Count 407 K/mm3 (150-450); RBC Distribution Width CV 13.9 % (11.6-14.6); RBC Distribution Width SD 45.6 fl (35.1-43.9); White Blood Count 13.3 K/mm3 (4.4-11.0)
[2025-05-02] MEDS: 0.9% Normal Saline (1000mL) 1,000 ML 1000 ML IV (01:10)
[2025-05-02 01:28] LABS: Bedside Glucose 78 mg/dL (74-106)
[2025-05-02 01:53] LABS: Acetaminophen (Tylenol) Level < 5.0 ug/mL (8.0-19.0); Alcohol, Blood (Medical)-Serum < 10.1 mg/dL (<=10.0); Salicylate < 0.5 mg/dL (2.8-20.0)
[2025-05-02 02:00] VITALS: BP 141/88; PULSE 84; RESP 14; O2SAT 98
[2025-05-02 02:36] LABS: Bedside Glucose 54 mg/dL (74-106)
[2025-05-02 03:00] LABS: Lipase 68 U/L (13-75)
[2025-05-02 03:03] LABS: AST(SGOT) 128 U/L (<=37); Alanine Aminotransfer ALT/SGPT 203 U/L (<=46); Alkaline Phosphatase 225 U/L (40-129); Anion Gap 12 (5-15); BUN 19 mg/dL (4-19); BUN/Creat Ratio 20.8 RATIO (10-20); Bilirubin, Direct < 0.08 mg/dL (0.00-0.30); Calcium,Total 9.8 mg/dL (7.6-11.0); Carbon Dioxide 21.4 mmol/L (21.0-32.0); Chloride 105 mmol/L (98-108); Creatinine, Serum 0.91 mg/dL (0.70-1.20); EST Glomerular Filtration Rate 109 (>60); Estimated Creatinine Clearance 109.19 ml/min (50-250); Globulin 2.7 g/dL (2.2-4.2); Glucose 41 mg/dL (70-99); Potassium 4.2 mmol/L (3.3-5.1); Protein, Total 6.7 g/dL (5.9-8.4); Sodium Level 138 mmol/L (133-145); Total Bilirubin < 0.15 mg/dL (0.00-1.30)
[2025-05-02 03:21] LABS: Lithium 1.44 mmol/L (0.60-1.20)
[2025-05-02 03:28] VITALS: BP 132/93; PULSE 88; RESP 16; O2SAT 97
[2025-05-02 03:39] LABS: Bacteria 0 SEEN /hpf (None Seen); Mucous, Urine 0 SEEN /hpf (<or=2+); Red Blood Cells-Urine 0 SEEN /hpf (0-5); Squamous Epithelial Cells - UA 0 SEEN /hpf (0-5); White Blood Cells 0 SEEN /hpf (0-5)
[2025-05-02 03:49] LABS: Glucose, Dipstick 1000 mg/dl (Normal); Ketone-Dipstick Negative (Negative); Leukocyte Esterase-Dipstick Negative /ul (Negative); Nitrite-Dipstick Negative (Negative); Occult Blood-Urine Negative /ul (Negative); Protein-Dipstick 100 mg/dl (Negative); Urine Bilirubin Dipstick Negative (Negative); Urine Urobilinogen Normal (Normal)
[2025-05-02 03:49] LABS: Bedside Glucose 148 mg/dL (74-106)
[2025-05-02 03:52] LABS: Color, Urine Yellow (Yellow); Urine Clarity Clear (Clear)
[2025-05-02 04:07] VITALS: BP 131/88
[2025-05-02 04:29] LABS: Amphetamine Urine NEGATIVE (<1000 ng/mL); Barbiturate Urine NEGATIVE (< 200 ng/mL); Benzodiazepine Urine NEGATIVE (< 200 ng/mL); Buprenorphine Urine NEGATIVE (< 200 ng/mL); Cocaine Urine NEGATIVE (< 300 ng/mL); Fentanyl, Urine PRESUMPTIVE POSITIVE; Methadone Urine NEGATIVE (< 300 ng/mL); Opiates Urine NEGATIVE (< 300 ng/mL); Oxycodone, Urine NEGATIVE (< 100 ng/mL); PCP Urine NEGATIVE (< 25 ng/mL); THC Urine NEGATIVE (< 50 ng/mL)
[2025-05-02 05:20] VITALS: BP 134/89
[2025-05-02 06:15] LABS: Bedside Glucose 123 mg/dL (74-106)
--- NOTE | 2025-05-02 09:03 | ED.RN ---
Per Dr. Avtar gray to give morning medications Levothyroxine 175 mg Rosuvastatin 40 mg vitamin D 2000u 50 mcg metformin 1000 mg lithium 450 mg
[2025-05-02 09:27] LABS: Bedside Glucose 82 mg/dL (74-106)
--- NOTE | 2025-05-02 12:19 | ED.RN ---
RN attempt to call report. call went right to voicemail. RN also attempted to call the nurse line through transfer center. RN still unable to call report at this time.
[2025-05-02 12:20] VITALS: BP 142/91; PULSE 73; RESP 16; TEMP 37; O2SAT 98
== END 2025-05-02 12:22 ==
PROVIDERS: Emergency Provider Emergency Medicine; PCP Family Medicine; Visit Provider Emergency Medicine
DX: R78.89 Finding of other specified substances, not normally found in blood (principal); F11.10 Opioid abuse, uncomplicated; F31.9 Bipolar disorder, unspecified; E11.9 Type 2 diabetes mellitus without complications; Z79.4 Long term (current) use of insulin; R74.8 Abnormal levels of other serum enzymes; R74.01 Elevation of levels of liver transaminase levels; I45.10 Unspecified right bundle-branch block; F17.290 Nicotine dependence, other tobacco product, uncomplicated; Z79.85 Long-term (current) use of injectable non-insulin antidiabetic drugs; Z79.84 Long term (current) use of oral hypoglycemic drugs; Z79.899 Other long term (current) drug therapy
CPT/HCPCS: 70450; 71045; 80048; 80076; 80143; 80178; 80179; 80307; 81001; 82077; 82962; 83690; 85025; 93005; 96360; 96361; 99285; P9612; A4216

== ENCOUNTER 2025-05-14 13:49 | Emergency (ER) | payer MEDICARE, MEDICAID, SELFPAY ==
[2025-05-14 13:50] VITALS: BP 128/96; PULSE 114; RESP 14; TEMP 36.2; O2SAT 98; BMI 24.3
[2025-05-14 15:50] VITALS: BP 130/90; PULSE 88; O2SAT 100
--- NOTE | 2025-05-14 16:45 | CM.ED ---
Social work During private conversation with patient's sister and legal guardian, Zohra, Zohra stated having filed a restraining order against patient to help protect patient's parents. Patient stated working with Dennise Powell at [facility] to do so. This is reportedly not active yet as this has simply only been filed today, after hours. Zohra stated, tearfully, that patient desperately needs to get help. Zohra stated patient is not safe at patient's parent's home anymore and patient needs residential at this point in time. Reportedly, [facility] (where patient goes for psychiatry) and [facility] (where patient goes for counseling) have both stated the patient's need for residential in the recent past. Per Zohra, there will be conversation with patient soon about the need for patient to agree to going to residential treatment at [facility] in [place]. Zohra was tearful throughout conversation with SW, but was also appreciative of SW attempts at placing patient in inpatient mental health treatment for further stabilization. Suki Parker, [employer] DEVELOPER, VETERINARY TECHNICIAN ASSISTANT
[2025-05-14 17:00] VITALS: BP 128/92; PULSE 90
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
[2025-05-14 18:45] LABS: Hematocrit 41.9 % (40-54); Hemoglobin 13.6 g/dL (13.0-16.5); Immature Granulocytes Count 0.040 X10^3/uL (0.0-0.0); Mean Corp Hgb Conc 32.5 g/dL (32-36); Mean Corpuscular Volume 92.3 fL (80-94); Mean Platelet Vol. 9.2 fl (6.2-12.0); NRBC Flagged by Analyzer 0 % (0-5); Platelet Count 397 K/mm3 (150-450); RBC Distribution Width CV 14.2 % (11.6-14.6); RBC Distribution Width SD 48.6 fl (35.1-43.9); Red Blood Count 4.54 M/mm3 (4.6-6.2); White Blood Count 13.1 K/mm3 (4.4-11.0)
[2025-05-14 19:00] VITALS: BP 120/97; PULSE 88; RESP 14; O2SAT 100
[2025-05-14 19:23] LABS: Alcohol, Blood (Medical)-Serum < 10.1 mg/dL (<=10.0)
[2025-05-14 19:24] LABS: Anion Gap 14 (5-15); BUN 18 mg/dL (4-19); BUN/Creat Ratio 25.5 RATIO (10-20); Calcium,Total 10.1 mg/dL (7.6-11.0); Carbon Dioxide 21.1 mmol/L (21.0-32.0); Chloride 104 mmol/L (98-108); Estimated Creatinine Clearance 138.00 ml/min (50-250); Glucose 86 mg/dL (70-99); Potassium 4.0 mmol/L (3.3-5.1)
[2025-05-14 19:26] LABS: Barbiturate Urine NEGATIVE (< 200 ng/mL); Benzodiazepine Urine NEGATIVE (< 200 ng/mL); PCP Urine NEGATIVE (< 25 ng/mL); THC Urine NEGATIVE (< 50 ng/mL)
--- NOTE | 2025-05-14 19:45 | EDS_ITS ---
HPI History of Present Illness Chief Complaint: Mental Health Narrative Narrative: Patient is a 44-year-old male with past medical history of bipolar disorder, hypothyroidism, diabetes who presented to the emergency department via EMS after having an argument with his father earlier. Patient has a legal guardian his sister and she notes that he has not been taking care of himself recently she notes that he was recently released from a psychiatric facility. She states that the living situation at the parent home was not safe currently and notes that he has been off his meds for a few days ever since being getting out. She was concerned therefore she had him sent here for further evaluation management. Patient denies any suicidal homicidal ideations [facility] Medical History Dextromethorphan use disorder, mild, abuse Bipolar disorder Contact dermatitis due to poison los Diabetes Home Medications ?Medication ?Instructions ?Recorded ?Last Taken ?Type cholecalciferol (vitamin D3) 50 50 mcg PO DAILY Unknown History mcg (2,000 unit) capsule flash glucose scanning reader #1 ea 12/24/23 Unknown R x (FreeStyle Aniya 2 [place]) lithium carbonate 450 mg 450 mg PO DAILY 30 days #60 tabs 01/31/24 Unknown History tablet,extended release lurasidone 40 mg tablet (Latuda) 60 mg PO DAILY Unknown History melatonin 5 mg tablet 5 mg PO HS 01/31/24 Unknown History BD Ultra-Fine Hilary Pen Needle 32 #100 ea 03/24/24 Unkn own Rx gauge x 5/32 (pen needle, diabetic) flash glucose sensor (FreeStyle #6 ea 05/15/24 Unknown Rx Aniya 2 Sensor kit) semaglutide 1 mg/dose (4 mg/3 mL) 1 mg (0.75 mL) subcu t QWEEK #9 mL 05/15/24 Unknown Rx subcutaneous pen injector (Ozempic) metformin 1,000 mg tablet 1,000 mg PO BIDWMEAL #60 tab s 07/28/24 Unknown Rx insulin degludec 100 unit/mL (3 30 unit subcut DAILY 0 05/02/25 Unknown History mL) subcutaneous pen (Tresiba FlexTouch U-100 insulin) insulin lispro 100 unit/mL 1 sliding scale dose subcut PRN 05/02/25 Unknown History subcutaneous pen PRN hyperglycemia levothyroxine 200 mcg tablet 175 mcg PO DAILY 05/02/25 Unknown History rosuvastatin 5 mg tablet 40 mg PO DAILY 05/02/25 Unkn own History levothyroxine 175 mcg tablet 175 mcg PO DAILY 05/14/25 Unknown History melatonin 5 mg capsule 5 mg PO QHS 05/14/25 Unknown History melatonin 5 mg tablet 5 mg PO QHS 05/14/25 Unknown History naloxone 4 mg/actuation nasal spray spray intranasal 0 05/14/25 Unknown History rosuvastatin 40 mg tablet 40 mg PO DAILY 05/14/25 Unkn own History topiramate 25 mg tablet 25 mg PO BID depressive diso rder 05/14/25 Unknown History Allergy/AdvReac Type Severity Reaction Status Date / Time No Known Allergies Allergy Verified 05/14/25 13:52 Family History Other Alcohol abuse Anemia Arthritis Diabetes H/O transfusion of whole blood Heart disease High cholesterol Hypertension Mental disorder Myocardial infarction Thyroid disorder Social History household members: family housing: house Smoking Status: Current every day smoker tobacco type: cigars alcohol intake: never substance use type: does not use what type of physical activity do you participate in: walking frequency: daily ROS ROS ED ROS Narrative Constitutional: Denies fevers, chills, headaches Eyes: Denies double vision Cardiovascular: Denies chest pain Respiratory: Denies shortness of breath Abdomen: Denies abdominal pain nausea vomit diarrhea : Denies any urinary symptoms Neurological: Denies any numbness, wheeze, tingling Musculoskeletal: Denies any back pain Skin: Denies any rashes or lesions EXAM Physical Exam Narrative Exam Narrative: General: Patient was lying in bed rest comfortably did not appear to be acute distress Head: Atraumatic, normocephalic Eyes: PERRL bilaterally, EOMI blood, no conjunctival injection noted Neck: Soft, supple, trachea midline Cardiovascular: Regular rate and rhythm no murmurs gallops rubs noted Respiratory: Clear to auscultation bilaterally Extremities: +5/5 strength noted in the bilateral upper and lower extremities Neurological: Patient following commands knew that he was at [facility] year is 2024 Skin: Warm, dry, intact no rashes or lesions noted Psychiatric: Calm, cooperative Const Vital Signs: 05/14/25 13:50 05/14/25 15:50 05/14/25 17:00 Temperature 97.1 F L Temperature Source Temporal Pulse Rate 114 H 88 90 Respiratory Rate 14 Blood Pressure 128/96 H 130/90 H 128/92 H Blood Pressure Mean 106 103 104 Pulse Ox 98 100 Oxygen Delivery Method Room Air Room Air 05/14/25 19:00 05/14/25 20:55 Temperature Temperature Source Pulse Rate 88 85 Respiratory Rate 14 16 Blood Pressure 120/97 H 119/83 H Blood Pressure Mean 104 95 Pulse Ox 100 100 Oxygen Delivery Method Room Air Room Air MDM MDM MDM Narrative Medical decision making narrative: Patient is a 44-year-old male who presented to the emergency department via EMS with chief complaint of needing medical screening exam. On differential diagnose includes but not limited to bipolar disorder, anxiety, depression, medication noncompliance. Social work did evaluate the patient and spoke with his legal guardian and they feel that he is not taking care of himself not taking his medications and feel that he does require placement for inpatient stabilization. We discussed with the patient and he is agreeable with this. He was upset about this decision but is agreeable. Patient had blood work added onto for medical clearance. Patient's CBC was reviewed and showed a white blood cell count of 13,000, hemoglobin 13.6, sodium was normal at 139, potassium of 4, creatinine normal at 0.72. Patient is medically cleared. Patient still pending placement patient will be signed out to overnight provider to follow-up on ultimate disposition and placement into psychiatric facility. Lab Data Labs: Laboratory Results - last 24 hr 05/14/25 05/14/25 18:28 18:35 WBC 13.1 H RBC 4.54 L Hgb 13.6 Hct 41.9 MCV 92.3 MCH 30.0 MCHC 32.5 RDW Std Deviation 48.6 H RDW Coeff of Sadaf 14.2 Plt Count 397 MPV 9.2 Immature Gran % (Auto) 0.300 Neut % (Auto) 64.3 Lymph % (Auto) 23.2 Anderson % (Auto) 8.3 Eos % (Auto) 3.4 Baso % (Auto) 0.5 Absolute Neuts (auto) 8.4 H Absolute Lymphs (auto) 3.04 Nucleated RBC % 0 Sodium 139 Potassium 4.0 Chloride 104 Carbon Dioxide 21.1 Anion Gap 14 BUN 18 Creatinine 0.72 Estim Creat Clear Calc 138.00 Est GFR (MDRD) Non-Af 117 BUN/Creatinine Ratio 25.5 H Glucose 86 Calcium 10.1 Urine Opiates Screen NEGATIVE U Buprenorphine Qual NEGATIVE Ur Oxycodone Screen NEGATIVE Urine Methadone Screen NEGATIVE Urine Fentanyl Screen NEGATIVE Ur Barbiturates Screen NEGATIVE Ur Phencyclidine Scrn NEGATIVE Ur Amphetamines Screen NEGATIVE U Benzodiazepines Scrn NEGATIVE Urine Cocaine Screen NEGATIVE U Cannabinoids Screen NEGATIVE Ethyl Alcohol < 10.1 Discharge Plan Triage Chief Complaint: Mental Health ED Provider: Timmy Benites Dx/Rx/DC Orders Clinical Impression: Bipolar disorder, History of hypothyroidism, History of diabetes mellitus Prescriptions: No Action lithium carbonate 450 mg tablet extended release 450 mg PO DAILY 30 Days Qty: 60 Patient Comments: Rx Instructions: 900 mg qhs Latuda 40 mg tablet 60 mg PO DAILY melatonin 5 mg tablet 5 mg PO HS Patient Comments: TAKE 1 TABLET BY MOUTH AT BEDTIME cholecalciferol (vitamin D3) 50 mcg (2,000 unit) capsule 50 mcg PO DAILY (DME) FreeStyle Aniya 2 [place] Misc See Rx Instructions .Route Qty: 1 0RF Rx Instructions: As directed Ozempic 1 mg/dose (4 mg/3 mL) pen injector 1 mg subcut QWEEK Qty: 9 0RF (DME) FreeStyle Aniya 2 Sensor Kit See Rx Instructions .Route Qty: 6 0RF Rx Instructions: 1 sensor q 14 days topiramate 25 mg tablet 25 mg PO BID rosuvastatin 40 mg tablet 40 mg PO DAILY naloxone 4 mg/actuation spray,non-aerosol INTRANASAL melatonin 5 mg capsule 5 mg PO QHS melatonin 5 mg tablet 5 mg PO QHS levothyroxine 175 mcg tablet 175 mcg PO DAILY insulin lispro 100 unit/mL insulin pen 1 sliding scale dose SUBCUT PRN PRN (Reason: hyperglycemia) Patient Comments: INJECT PER SLIDING SCALE DIRECTED: IF BLOOD GLUCOSE IS 250-299: 2 UNITS, 300-349:4 UNITS, 350-400: 6 UNITS, GREATER THAN 400: 8 UNITS. DO NOT INJECT MORE THAN EVERY 8 HOURS. insulin degludec [Tresiba FlexTouch U-100] 100 unit/mL (3 mL) insulin pen 30 unit subcut DAILY levothyroxine 200 mcg tablet 175 mcg PO DAILY rosuvastatin 5 mg tablet 40 mg PO DAILY (DME) pen needle, diabetic [BD Ultra-Fine Hilary Pen Needle] 32 gauge x 5/32 needle See Rx Instructions .ROUTE .MEDSUPPLY Qty: 100 8RF Rx Instructions: tid metformin 1,000 mg tablet 1,000 mg PO BIDWMEAL Qty: 60 0RF Primary Care Provider: Freddy Chowdhury Referrals: Freddy Chowdhury MD [Primary Care Provider] - Print Language: Venezuelan Disposition Disposition: Psychiatric Hospital or Unit
--- NOTE | 2025-05-14 19:57 | ED.RN ---
patient has 2 bags of belongings in the black bins, including a bag of medications- charge nurse notified- tejas
--- NOTE | 2025-05-14 20:44 | CM.ED ---
Social work 1950: called [facility] (ph: ) and there were no beds on their dual diagnosis unit. Called [facility] (ph: ) and the phone continuously rang. Called [facility] (ph: ) and the phone continously rang. Called [facility] (ph: ) and there were dual diagnosis beds available. Referral packet faxed about 2004 (f: ). Awaiting response for accepting facility. Suki Parker, [employer]NACE INSTALLER AND REPAIRER, RESPIRATORY CARE ASSISTANT
[2025-05-14 20:55] VITALS: BP 119/83; PULSE 85; RESP 16; O2SAT 100
--- NOTE | 2025-05-14 22:05 | CM.ED ---
Social work 2119: called [facility] for update. Staff there stated patient's referral would be reviewed soon due to having multiple referrals to review before patient's. [facility] called the help desk team leader prior at the end of SW shift with accepting information. Plan: [facility], pending transport. Suki Parker, HOUSECLEANER, CITY LIBRARY DIRECTOR
[2025-05-15] MEDS: MELATONIN 10 MG TABLET 5 MG PO (03:21)
[2025-05-15 04:56] VITALS: BP 127/88; PULSE 81; RESP 16; O2SAT 100
[2025-05-15 05:54] VITALS: BP 127/88; PULSE 81; RESP 16; TEMP 36.8; O2SAT 100
--- NOTE | 2025-05-15 06:03 | ED.RN ---
Patient's legal guardian called and updated on patient's acceptance to [facility] and ride at 9 am. No further questions at this time.
[2025-05-15 08:48] VITALS: BP 135/95; PULSE 81; RESP 16; O2SAT 99
== END 2025-05-15 10:01 ==
PROVIDERS: Emergency Provider Emergency Medicine; PCP Family Medicine; Referring Provider Emergency Medicine; Visit Provider Emergency Medicine
DX: F31.9 Bipolar disorder, unspecified (principal); E11.9 Type 2 diabetes mellitus without complications; Z79.4 Long term (current) use of insulin; E03.9 Hypothyroidism, unspecified; F17.290 Nicotine dependence, other tobacco product, uncomplicated; Z63.8 Other specified problems related to primary support group; Z79.84 Long term (current) use of oral hypoglycemic drugs; Z79.85 Long-term (current) use of injectable non-insulin antidiabetic drugs; Z79.890 Hormone replacement therapy; Z79.899 Other long term (current) drug therapy; Z91.148 Patient's other noncompliance with medication regimen for other reason
CPT/HCPCS: 36415; 80048; 80307; 82077; 82962; 85025; 99285

== ENCOUNTER 2025-07-14 13:52 | Outpatient (RCR) | payer MEDICARE, MEDICAID, SELFPAY | END 2025-08-04 23:59 | LOC: NS 13:52 | PROVIDERS: PCP Family Medicine; Referring Provider Family Medicine; Visit Provider Family Medicine | DX: Z71.3 Dietary counseling and surveillance (principal); E11.69 Type 2 diabetes mellitus with other specified complication | CPT/HCPCS: 97802 ==

== ENCOUNTER → 2025-07-23 | Outpatient (CLI) | payer MEDICARE, MEDICAID, SELFPAY ==
[2025-07-23 15:33] LABS: Mucous, Urine 0 SEEN /hpf (<or=2+); Squamous Epithelial Cells - UA 0 SEEN /hpf (0-5)
[2025-07-23 17:40] LABS: Hematocrit 36.3 % (40-54); Hemoglobin 11.7 g/dL (13.0-16.5); Immature Granulocytes Count 0.020 X10^3/uL (0.0-0.0); Mean Corp Hgb Conc 32.2 g/dL (32-36); Mean Corpuscular Volume 92.8 fL (80-94); Mean Platelet Vol. 9.4 fl (6.2-12.0); NRBC Flagged by Analyzer 0 % (0-5); Platelet Count 496 K/mm3 (150-450); RBC Distribution Width CV 13.3 % (11.6-14.6); RBC Distribution Width SD 45.4 fl (35.1-43.9); Red Blood Count 3.91 M/mm3 (4.6-6.2); White Blood Count 8.9 K/mm3 (4.4-11.0)
[2025-07-23 18:01] LABS: Color, Urine Straw (Yellow); Glucose, Dipstick 250 mg/dl (Normal); Ketone-Dipstick Negative (Negative); Leukocyte Esterase-Dipstick Negative /ul (Negative); Nitrite-Dipstick Negative (Negative); Occult Blood-Urine Negative /ul (Negative); Protein-Dipstick 100 mg/dl (Negative); Specific Gravity, Urine 1.015 (1.002-1.030); Urine Bilirubin Dipstick Negative (Negative)
[2025-07-23 18:06] LABS: Creatinine, Urine (random) 52.10 mg/dL (39.00-259.00); Microalbumin,Random Urine 336.0 mg/L (<20 mg/L)
[2025-07-23 18:19] LABS: AST(SGOT) 47 U/L (<=37); Alanine Aminotransfer ALT/SGPT 91 U/L (<=46); Albumin, Serum 4.1 g/dL (3.5-5.0); Alkaline Phosphatase 328 U/L (40-129); Anion Gap 12 (5-15); BUN 15 mg/dL (4-19); BUN/Creat Ratio 18.4 RATIO (10-20); Calcium,Total 9.7 mg/dL (7.6-11.0); Carbon Dioxide 19.9 mmol/L (21.0-32.0); Chloride 108 mmol/L (98-108); Cholesterol 91 mg/dL (<=200); Globulin 3.0 g/dL (2.2-4.2); Glucose 282 mg/dL (70-99); Low Density Lipoprotein Calc. 26 mg/dL; Potassium 4.2 mmol/L (3.3-5.1); Triglycerides 65 mg/dL; Very Low Density Lipoprotein 13 mg/dL (5-40); cholesterol:hdl ratio screen 1.74
[2025-07-23 18:57] LABS: Red Blood Cells-Urine 0-5 SEEN /hpf (0-5)
[2025-07-24 17:43] LABS: Ferritin 17 ng/mL (37-417); Iron 27 ug/dL (65-175); Iron Binding Capacity,Total 384 ug/dL (250-450); Iron Binding Capacity,Unsat 357 ug/dL (228-428); Vitamin B12 1083 pg/mL (180-914)
== END | disposition home or self-care (01) ==
LOC: MFPLAB 15:30
PROVIDERS: PCP Family Medicine; Visit Provider Family Medicine
DX: E11.69 Type 2 diabetes mellitus with other specified complication (principal); D64.9 Anemia, unspecified; E03.9 Hypothyroidism, unspecified
CPT/HCPCS: 80053; 80061; 81001; 82043; 82570; 82607; 82728; 83036; 83540; 83550; 84439; 84443; 85025

== ENCOUNTER → 2025-08-21 | Outpatient (CLI) | payer MEDICARE, MEDICAID, SELFPAY ==
--- NOTE | 2025-08-21 15:00 | RAD_ITS ---
PROCEDURE: SHOULDER MIN 2 VIEWS 08/21/2025 REASON FOR EXAM: PAIN, FROZEN SHOULDER TECHNIQUE: Procedure Code: RADSH Modality: DX Procedure: SHOULDER MIN 2 VIEWS Laterality: FINDINGS: No evidence of acute fracture or dislocation. The joint spaces are maintained. The right lung apex is clear. RAD/Shoulder min 2 Views IMPRESSION: No acute osseous abnormalities. Reading Location: [id number]
--- NOTE | 2025-08-21 15:01 | RAD_ITS ---
PROCEDURE: SHOULDER MIN 2 VIEWS 08/21/2025 REASON FOR EXAM: PAIN TECHNIQUE: Procedure Code: RADSH Modality: DX Procedure: SHOULDER MIN 2 VIEWS Laterality: FINDINGS: No evidence acute fracture or dislocation. The joint spaces are maintained. The left lung apex is clear. RAD/Shoulder min 2 Views IMPRESSION: No acute osseous abnormalities. Reading Location: [id number]
--- OUTSIDE RECORDS SUMMARY | 2025-08-21 15:22 | XMS RPT_ITS | CCD ---
Author Organization [facility] Care Team Providers Care Superintendent Mechanical Name Role Phone Macy Salinas LPN Unavailable [...] [phone] Yasmany Borges Attending Provider 1([facility])[phone] Dr. Denise Reyes Primary Care Provider Dr. Denise Reyes Referring Provider WILLIAM Owens Attending Provider [phone] Yasmany Borges Attending Provider 1([facility])[phone] Unavailable Primary Care Provider UnavailDENISE Yung Referring Unavailable SEBASTIAN MARROQUIN Attending Unavailable DENISE REYES Referring Unavailable O'NEHA HILLIARD Attending Unavailable DENISE REYES Referring Unavailable Marleen'NEHA HILLIARD Attending Unavailable DENISE REYES Referring Unavailable O'BABAKNEHA Attending Unavailable SCHINNER, DENISE E Referring Unavailable O'BABAK, NEHA Attending Unavailable O'BABAK, NEHA Attending Unavailable SCHINNER, DENISE E Referring Unavailable O'BABAK, NEHA Attending Unavailable SCHINNER, DENISE E Referring Unavailable SCHINNER, DENISE E Referring Unavailable SCHINNER, DENISE E Referring Unavailable SEBASTIAN MARROQUIN Attending Unavailable SCHINALYSSA, DENISE Mann Referring Unavailable SEBASTIAN MARROQUIN Attending Unavailable [place] FOURNIER, Dr. Denise Mann Primary Care Provider [phone] Dr. Denise Reyes MD Attending Provider [place] FOURNIER, Dr. Denise Mann Referring Provider Dr. Jorge Alberto Durand DO Attending Provider Dr. Jorge Alberto Durand DO Emergency Provider Provider, Ed Physician Emergency Provider Dr. Denise Perry MD Primary Care Provider Dr. Denise Reyes MD Attending Provider [phone] Dr. Denise Reyes MD Referring Provider Provider, Ed Physician Attending Provider Dr. Narayan Wagoner DO Emergency Provider Dr. Narayan Mckenzie DO Attending Provider Dr. Timmy Benites DO Referring Provider [phone] Timmy Benites DO Emergency Provider [phone] Denise Reyes Primary Care Unavailable Timmy Benites Attending Unavailable Timmy Benites Referring Unavailable SchDenise lara E Primary Care Unavailable Narayan Mckenzie Attending Unavailable SchinDenise interiano Attending Unavailable Schinner, Denise E Referring Unavailable Schinner, Denise E Primary Care Unavailable Dena Foy Attending Unavailable Schinner, Denise E Primary Care Unavailable Schinner, Denise E Attending Unavailable Schinner, Denise E Referring Unavailable Schinner, Denise E Primary Care Unavailable Schinner, Denise E Attending Unavailable Schinner, Denise E Referring Unavailable Schinner, Denise E Primary Care Unavailable Schinner, Denise E Primary Care Unavailable Schinner, Denise E Attending Unavailable Schinner, Denise E Attending Unavailable Denise Reyes Primary Care Unavailable MarcosabhijitJorge Alberto Attending Unavailable Denise Reyes Primary Care Unavailable [...] Unavailable Denise Reyes Primary Care Unavailable Denise Reeys Referring Unavailable Denise Reyes Primary Care Unavailable Provider, Ed Physician Attending Unavailab le Medications Current Medications Medication Drug Class(es) Dates Sig (Normalized) Sig (Original) cholecalciferol 0.05 mg oral capsule (13 sources) Vitamin D Start: 06-05-2022 End: 12-24-2023 take 1 capsule by mouth once daily Cholecalciferol (Vitamin D3) 50 mcg (2,000 unit) capsule Active 50 ug PO DAILY December 24, 2023 1:00am Flash Glucose Scanning [place] (Freestyle Aniya 2 [place]) misc (5 sources) Start: 12-24-2023 Flash Glucose Scanning [place] (Freestyle Aniya 2 [place]) misc Active 0 .Route 1 0 December 24, 2023 1:00am Diabetes mellitus Type 2 diabetes mellitus without complications As directed Start: 12-24-2023 Flash Glucose Scanning [place] (Freestyle Aniya 2 [place]) misc Active 0 .Route 1 December 24, 2023 1:00am As directed Flash Glucose Sensor (Freestyle Aniya 2 Sensor) kit (4 sources) Start: 05-15-2024 Flash Glucose Sensor (Freestyle Aniya 2 Sensor) kit Active 0 .Route 6 0 May 15, 2024 12:00am Diabetes mellitus Type 2 diabetes mellitus with hyperglycemia 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 1 sensor q 14 days Start: 05-15-2024 Flash Glucose Sensor (Freestyle Aniya 2 Sensor) kit Active 0 .Route 6 May 15, 2024 12:00am 1 sensor q 14 days Insulin Degludec (Tresiba Flextouch U-100) 100 unit/mL (3 mL) insulin pen (2 sources) Start: 05-02-2025 Insulin Deglud ec (Tresiba Flextouch U-100) 100 unit/mL (3 mL) insulin pen Active 30 U SC DAILY May 02, 2025 12:00am 3 ml insulin lispro 100 unt/ml pen injector (2 sources) Insulin Analog Start: 05-02-2025 Insulin Lispro 100 unit/mL insulin pen Active 1 sliding scale dose SC NEEDED as needed for hyperglycemia May 02, 2025 12:00am lithium carbonate 450 mg extended release oral tablet (14 sources) Start: 01-31-2024 take 2 tablets by mouth once daily at bedtime Naschitti Carbonate 450 mg tablet extended release Active 450 mg PO DAILY 60 30 0 January 31, 2024 2:51pm 900 mg qhs Start: 11-21-2017 End: 01-31-2024 Naschitti Carbonate 450 mg tab let extended release Discontinued PO 90 30 0 November 21, 2017 1:00am January 31, 2024 2:53pm Start: 11-21-2017 End: 01-31-2024 take 1 tablet by mouth twice daily Naschitti Carbonate 450 mg tablet extended release Active 450 mg PO TWICE A DAY 60 30 January 31, 2024 2:51pm melatonin 5 mg oral capsule (15 sources) Start: 05-14-2025 take 1 capsule by mouth at bedtime Melatonin 5 mg capsule Active 5 mg PO AT BEDTIME May 14, 2025 12:00am Start: 01-31-2024 take 1 tablet by marichuy th at bedtime Melatonin 5 mg tablet Active 5 mg PO AT BEDTIME May 14, 2025 12:00am Start: 06-05-2022 End: 01-31-2024 Melatonin 5 mg tablet Discon tinued NMA PO June 05, 2022 12:00am January 31, 2024 2:53pm Start: 06-05-2022 End: 01-31-2024 Melatonin Discontinued EACH PO June 05, 2022 12:00am January 31, 2024 2:53pm metFORMIN hydrochloride 1000 mg oral tablet (8 sources) Biguanide Start: 05-15-2024 End: 07-28-2024 take 1 tablet by mouth twice daily at mealtime Metformin 1,000 mg tablet Active 1000 mg PO 2 times per day with meals 60 0 July 28, 2024 8:08am Naloxone 4 mg/actuation spray,non-aerosol (1 source) Start: 05-14-2025 Naloxone 4 mg/actuation spray,non-aerosol Active NMA INTRANASAL May 14, 2025 12:00am rosuvastatin calcium 40 mg oral tablet (20 sources) HMG-CoA Reductase Inhibitor Start: 05-14-2025 take 1 tablet by mouth once daily Rosuvastatin 40 mg tablet Active 40 mg PO DAILY May 14, 2025 12:00am Start: 05-02-2025 Rosuvastatin 5 mg tablet Active 40 mg PO DAILY May 02, 2025 12:00am Start: 06-30-2024 End: 05-02-2025 take 1 tablet by mouth once daily Rosuvastatin 5 mg tablet Discontinued 5 mg PO DAILY 90 1 June 30, 2024 12:00am May 02, 2025 1:16am Start: 06-05-2022 End: 06-30-2024 take 1 tablet by mouth once daily Rosuvastatin 40 mg tablet Discontinued 40 mg PO DAILY 30 5 May 14, 2023 4:09pm June 30, 2024 8:02am Semaglutide (20 sources) Start: 05-15-2024 Semaglutide (O zempic) 1 mg/dose (4 mg/3 mL) pen injector Active 1 mg SC EVERY WEEK 9 0 May 15, 2024 4:31pm Diabetes mellitus Type 2 diabetes mellitus without complications Start: 05-15-2024 Semaglutide (O zempic) 1 mg/dose (4 mg/3 mL) pen injector Active 1 mg SC EVERY WEEK 9 May 15, 2024 4:31pm Start: 12-24-2023 End: 05-15-2024 Semaglutide (Ozempic) 1 mg/d ose (4 mg/3 mL) pen injector Discontinued 1 mg SC EVERY WEEK 3 December 24, 2023 12:07pm May 15, 2024 4:32pm Diabetes mellitus Type 2 diabetes mellitus without complications Start: 12-24-2023 End: 05-15-2024 Semaglutide (Ozempic) 1 mg/d ose (4 mg/3 mL) pen injector Discontinued 1 mg SC EVERY WEEK 3 December 24, 2023 12:07pm May 15, 2024 4:32pm Start: 12-24-2023 Semaglutide (O zempic) 1 mg/dose (4 mg/3 mL) pen injector Active 1 MG SC EVERY WEEK 3 December 24, 2023 12:07pm Start: 01-25-2023 End: 12-24-2023 Semaglutide (Ozempic) 1 mg/d ose (4 mg/3 mL) pen injector Discontinued 1 mg SC EVERY WEEK 3 January 25, 2023 2:08pm December 24, 2023 12:27pm Diabetes mellitus Type 2 diabetes mellitus without complications Start: 01-25-2023 End: 12-24-2023 Semaglutide (Ozempic) 1 [...] 30, 2022 1:00am January 25, 2023 2:08pm Diabetes mellitus Type 2 diabetes mellitus without complications Start: 11-30-2022 End: 01-25-2023 Semaglutide (Ozempic) 1 [...] 30, 2022 1:00am January 25, 2023 2:08pm levothyroxine sodium 0.175 mg oral tablet (20 sources) l-Thyroxine Start: 05-14-2025 take 1 tablet by mouth once daily Levothyroxine 175 mcg tablet Active 175 ug PO DAILY May 14, 2025 12:00am Start: 05-02-2025 Levothyroxine 200 mcg tablet Active 175 ug PO DAILY May 02, 2025 12:00am Start: 06-05-2022 End: 05-02-2025 take 1 tablet by mouth once daily Levothyroxine 200 mcg tablet Discontinued 200 ug PO DAILY 90 1 May 13, 2024 11:03am May 02, 2025 1:16am Start: 11-21-2017 End: 07-04-2023 take 1 tablet by mouth once daily Levothyroxine 25 mcg tablet Discontinued 25 ug PO DAILY 90 90 2 December 21, 2022 8:54am July 04, 2023 12:26pm Start: 11-21-2017 End: 06-22-2022 Levothyroxine 25 mcg tablet Discontinued PO 90 90 0 November 21, 2017 1:00am June 22, 2022 12:15pm Start: 07-31-2017 LEVO-T 175 MCG TABS as directed LEVOTHYROXINE SODIUM [id number] Deep DIAZ Start: 07-31-2017 LEVO-T 175 MCG TABS as directed LEVOTHYROXINE SODIUM [id number] Deep DIAZ topiramate 25 mg oral tablet (9 sources) Start: 05-14-2025 take 1 tablet by mouth twice daily Topiramate 25 mg tablet Active 25 mg PO TWICE A DAY May 14, 2025 12:00am depressive disorder Start: 06-05-2022 End: 12-24-2023 Topiramate 200 mg tablet Dis continued NMA PO June 05, 2022 12:00am December 24, 2023 11:51am Start: 06-05-2022 End: 12-24-2023 Topiramate Discontinued EACH PO June 05, 2022 12:00am December 24, 2023 11:51am Completed/Discontinued Medications Medication Drug Class(es) Dates Sig (Normalized) Sig (Original) amoxicillin 500 mg oral capsule (13 sources) Penicillin-class Antibacterial Start: 11-21-2017 End: 12-05-2017 take 1 capsule by mouth twice daily Amoxicillin 500 mg capsule Discontinued 500 mg PO TWICE A DAY 28 14 0 November 21, 2017 1:00am December 04, 2017 1:00am December 05, 2017 1:05am Start: 07-31-2017 End: 08-10-2017 AMOXICILLIN 500 MG TABS Take one tab every 12 hours AMOXICILLIN [id number] Deep DIAZ amoxicillin 875 mg / clavulanate 125 mg oral tablet (9 sources) Penicillin-class Antibacterial Start: 06-14-2018 End: 06-24-2018 Amoxicillin-Pot Clavulanate (Augmentin) 875-125 mg tablet Discontinued 1 {tbl} PO THREE TIMES A DAY 30 10 0 June 14, 2018 12:00am June 23, 2018 12:00am June 24, 2018 12:08am Follicular disorder, unspecified atorvastatin 20 mg oral tablet (9 sources) HMG-CoA Reductase Inhibitor Start: 11-21-2017 End: 06-22-2022 Atorvastatin 20 mg tablet Discontinued PO 30 30 0 November 21, 2017 1:00am June 22, 2022 12:15pm Start: 11-21-2017 End: 06-22-2022 Atorvastatin Discontinued PO 30 30 November 21, 2017 1:00am June 22, 2022 12:15pm 24 hr buPROPion hydrochloride 150 mg extended release oral tablet (9 sources) Aminoketone Start: 11-21-2017 End: 12-24-2023 take 1 tablet by mouth every twenty-four hours Bupropion Hcl 150 mg tablet extended release 24 hr Discontinued PO 30 30 0 November 21, 2017 1:00am December 24, 2023 11:52am CALCIUM CARBONATE-VIT D-MIN (1 source) Start: 07-31-2017 CALCIUM 600+D3 PLUS MINERALS 600-800 MG-UNIT CHEW as directed CALCIUM CARBONATE-VIT D-MIN [id number] Deep DIAZ CALCIUM CARBONATE-VIT D-MIN (1 source) Start: 07-31-2017 CALCIUM 600+D3 PLUS MINERALS 600-800 MG-UNIT CHEW as directed CALCIUM CARBONATE-VIT D-MIN [id number] Deep DIAZ canagliflozin 50 mg / metFORMIN hydrochloride 1000 mg oral tablet (20 sources) Biguanide, Sodium-Glucose Cotransporter 2 Inhibitor Start: 06-22-2022 End: 05-15-2024 Canagliflozin-Metf ormin 50-1,000 mg tablet Discontinued 1 {tbl} PO TWICE A DAY 180 90 1 April 12, 2023 9:21am December 24, 2023 12:27pm Diabetes mellitus Type 2 diabetes mellitus without complications Start: 06-22-2022 End: 12-24-2023 take 1 tablet by mouth twice daily Canagliflozin-Metformin Active 1 TABLET PO TWICE A DAY 180 90 December 24, 2023 12:07pm Start: 11-21-2017 End: 06-22-2022 Canagliflozin-Metformin 50-1 ,000 mg tablet Discontinued PO 60 30 0 November 21, 2017 1:00am June 22, 2022 12:15pm Start: 11-21-2017 End: 06-22-2022 Canagliflozin-Metformin Disc ontinued PO 60 30 November 21, 2017 1:00am June 22, 2022 12:15pm doxycycline hyclate 100 mg oral capsule (18 sources) Tetracycline-class Drug Start: 05-13-2019 End: 05-23-2019 take 1 capsule by mouth twice daily Doxycycline Hyclate 100 mg capsule Discontinued 100 mg PO TWICE A DAY 20 10 0 May 13, 2019 12:00am May 22, 2019 12:00am May 23, 2019 12:07am Acute sinusitis, unspecified Start: 06-14-2018 End: 06-24-2018 take 1 capsule by mouth twice daily Doxycycline Hyclate 100 mg capsule Discontinued 100 mg PO TWICE A DAY 20 10 0 June 14, 2018 12:00am June 23, 2018 12:00am June 24, 2018 12:08am Pilonidal cyst with abscess Follicular disorder, unspecified Dulaglutide (20 sources) GLP-1 Receptor Agonist Start: 11-27-2022 End: 11-30-2022 Dulaglutide (Trulicity) 3 mg/0.5 mL pen injector Discontinued 3 mg SC EVERY WEEK 2 3 November 27, 2022 11:39am November 30, 2022 12:34pm Diabetes mellitus Type 2 diabetes mellitus without complications Start: 11-27-2022 End: 11-30-2022 Dulaglutide (Trulicity) 3 [...] Discontinued 3 mg SC EVERY WEEK 2 3 June 05, 2022 12:00am November 27, 2022 11:39am Diabetes mellitus Type 2 diabetes mellitus without complications Start: 06-05-2022 End: 11-27-2022 Dulaglutide (Trulicity) 3 [...] 2022 11:00pm ergocalciferol 1.25 mg oral capsule (8 sources) Provitamin D2 Compound Start: 06-05-2022 End: 12-24-2023 Ergocalciferol (Vitamin D2) 1,250 mcg (50,000 unit) capsule Discontinued NMA PO June 05, 2022 12:00am December 24, 2023 11:50am Start: 06-05-2022 End: 12-24-2023 Ergocalciferol (Vitamin D2) Discontinued EACH PO June 05, 2022 12:00am December 24, 2023 11:50am fenofibric acid 135 mg delayed release oral capsule (9 sources) Peroxisome Proliferator Receptor alpha Agonist Start: 11-21-2017 End: 01-31-2024 Fenofibric Acid (Choline) 135 mg capsule,delayed release(DR/EC) Discontinued PO 90 90 0 November 21, 2017 1:00am January 31, 2024 2:44pm Start: 11-21-2017 End: 01-31-2024 Fenofibric Acid (Choline) Di scontinued PO 90 90 November 21, 2017 1:00am January 31, 2024 2:44pm 3 ml insulin degludec 200 unt/ml pen injector (11 sources) Insulin Analogue Start: 11-21-2017 End: 06-05-2022 Insulin Degludec 200 unit/mL (3 mL) insulin pen Discontinued SC 18 30 0 November 21, 2017 1:00am June 05, 2022 2:30pm Start: 11-21-2017 End: 06-05-2022 Insulin Degludec Discontinue d SC 18 November 21, 2017 1:00am June 05, 2022 2:30pm Start: 07-31-2017 TRESIBA FLEXTO UCH 100 UNIT/ML SOPN as directed INSULIN DEGLUDEC [id number] Deep DIAZ Start: 07-31-2017 TRESIBA FLEXTO UCH 100 UNIT/ML SOPN as directed INSULIN DEGLUDEC [id number] Deep DIAZ 3 ml insulin lispro 50 unt/ml / insulin lispro protamine, human 50 unt/ml pen injector (7 sources) Insulin Analog Start: 05-02-2023 End: 01-31-2024 Insulin Lispro Protamin-Lispro (Humalog Mix 50-50 Kwikpen) 100 unit/mL (50-50) insulin pen Discontinued 50 U SC TWICE A DAY 90 May 02, 2023 12:00am January 31, 2024 3:48pm Diabetes mellitus Type 2 diabetes mellitus without complications 3 ml insulin, regular, human 500 unt/ml pen injector (20 sources) Insulin Start: 12-24-2023 End: 05-02-2025 Insulin Regular Hum U-500 Conc (Humulin R U-500 (Conc) Kwikpen) 500 unit/mL (3 mL) insulin pen Discontinued 50 U SC 3 times per day with meals 27 0 May 15, 2024 4:31pm May 02, 2025 1:16am Diabetes mellitus Type 2 diabetes mellitus without complications Start: 06-05-2022 End: 05-02-2023 Insulin Regular Hum U-500 Co nc (Humulin R U-500 (Conc) Kwikpen) 500 unit/mL (3 mL) insulin pen Discontinued 60 U SC June 05, 2022 12:00am June 05, 2022 4:40pm lithium citrate 60 mg/ml oral solution (2 sources) Start: 07-31-2017 LITHIUM 8 MEQ/ 5ML SOLN as directed LITHIUM [id number] Deep DIAZ lurasidone hydrochloride 40 mg oral tablet (20 sources) Atypical Antipsychotic Start: 06-05-2022 End: 01-31-2024 Lurasidone (Latuda) 40 mg tablet Discontinued 60 mg PO December 24, 2023 11:51am January 31, 2024 2:53pm Start: 11-21-2017 End: 01-25-2023 Lurasidone 80 mg tablet Disc ontinued PO 30 30 0 November 21, 2017 1:00am January 25, 2023 1:52pm Start: 11-21-2017 End: 01-25-2023 Lurasidone Discontinued PO 3 0 30 November 21, 2017 1:00am January 25, 2023 1:52pm naltrexone hydrochloride 50 mg oral tablet (8 sources) Opioid Antagonist Start: 06-05-2022 End: 12-24-2023 Naltrexone 50 mg tablet Discontinued NMA PO June 05, 2022 12:00am December 24, 2023 11:52am Start: 06-05-2022 End: 12-24-2023 Naltrexone Discontinued EACH PO June 05, 2022 12:00am December 24, 2023 11:52am ondansetron 4 mg disintegrating oral tablet (4 sources) Serotonin-3 Receptor Antagonist Start: 12-20-2024 End: 05-02-2025 take 1 tablet by mouth three times daily as needed for nausea and vomiting Ondansetron 4 mg tablet,disintegrating Discontinued 4 mg PO THREE TIMES A DAY as needed for nausea and vomiting 21 0 December 20, 2024 1:18am May 02, 2025 1:16am pioglitazone 30 mg oral tablet (8 sources) Peroxisome Proliferator Receptor alpha Agonist, Peroxisome Proliferator Receptor gamma Agonist, Thiazolidinedione Start: 06-05-2022 End: 06-05-2022 Pioglitazone 30 mg tablet Discontinued NMA PO June 05, 2022 12:00am June 05, 2022 2:47pm Start: 06-05-2022 End: 06-05-2022 Pioglitazone Discontinued TA B PO June 05, 2022 12:00am June 05, 2022 2:47pm predniSONE 10 mg oral tablet (9 sources) Start: 05-02-2021 End: 01-25-2023 take 4 tablets by mouth once daily, then take 3 tablets by mouth once daily, then take 2 tablets by mouth once daily, then take 1 tablet by mouth once daily Prednisone 10 mg tablet Discontinued 10 mg PO DAILY 30 0 May 02, 2021 12:00am January 25, 2023 1:53pm 4 tablets daily for 3 days, then 3 tablets daily for 3 days, then 2 tablets daily for 3 days, then 1 tablet daily for 3 days Problems Active Problems Problem Classification Problem Date Documented Date Episodic/Chronic Allergic reactions (9 sources) Contact dermatitis due to poison los; Translations: [Allergic contact dermatitis due to plants, except food] 05-02-2021 Episodic Diabetes mellitus with complications (12 sources) 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; Translations: [Type 2 diabetes mellitus 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, unspecified eye] Onset: 04-07-2025 01-08-2023 Chronic Diabetes mellitus without complication (18 sources) Diabetes mellitus; Translations: [Type 2 diabetes mellitus without complications] Chronic Disorders of teeth and jaw (11 sources) Infection of tooth; Translations: [Periapical abscess without sinus] Onset: 07-31-2017 07-31-2017 Episodic Mood disorders (6 sources) Bipolar disorder; Translations: [Bipolar disorder, unspecified] Onset: 08-04-2025 01-28-2024 Chronic Other connective tissue disease (10 sources) Other symptoms and signs involving the musculoskeletal system; Translations: [Other musculoskeletal symptoms referable to limbs] 07-30-2024 Episodic Other connective tissue disease (10 sources) Muscle weakness of limb; Translations: [Other symptoms and signs involving the musculoskeletal system] Onset: 07-30-2024 07-30-2024 Episodic Other liver diseases (11 sources) Elevated liver enzymes level; Translations: [Abnormal levels of other serum enzymes] 05-05-2023 Episodic Other nutritional; endocrine; and metabolic disorders (7 sources) Overweight; Translations: [Overweight] 01-25-2023 Episodic Other nutritional; endocrine; and metabolic disorders (3 sources) Overweight; Translations: [Overweight] 01-25-2023 Episodic Other nutritional; endocrine; and metabolic disorders (1 source) H/O: hypothyroidism; Translations: [Personal history of other endocrine, nutritional and metabolic disease] 05-14-2025 Episodic Other nutritional; endocrine; and metabolic disorders (1 source) H/O: diabetes mellitus; Translations: [Personal history of other endocrine, nutritional and metabolic disease] 05-14-2025 Episodic Other screening for suspected conditions (not mental disorders or infectious disease) (1 source) Abnormal finding of blood chemistry, unspecified; Translations: [Abnormal finding of blood chemistry, unspecified] Onset: 08-04-2025 Episodic Other skin disorders (9 sources) Acute folliculitis; Translations: [Follicular disorder, unspecified] 06-14-2018 Episodic Other skin disorders (1 source) Generalized hyperhidrosis; Translations: [Generalized hyperhidrosis] Onset: 08-04-2025 Episodic Residual codes; unclassified (1 source) Procedure and treatment not carried out because of patient's decision for other reasons; Translations: [Procedure and treatment not carried out because of patient's decision for other reasons] Onset: 08-04-2025 Episodic Skin and subcutaneous tissue infections (9 sources) Pilonidal cyst with abscess; Translations: [Pilonidal cyst with abscess] 06-14-2018 Episodic Thyroid disorders (15 sources) Hypothyroidism; Translations: [Hypothyroidism, unspecified] Onset: 01-02-2025 Chronic Unclassified (9 sources) Cyst ; Translations: [Cyst] 05-13-2019 Past or Other Problems Problem Classification Problem Date Documented Da te Episodic/Chronic Mycoses (2 sources) Candidiasis; Translations: [Candidiasis, unspecified] Onset: 07-31-2017 07-31-2017 Episodic Other liver diseases (3 sources) Abnormal levels of other serum enzymes; Translations: [Other nonspecific abnormal serum enzyme levels] Onset: 02-02-2025 09-24-2023 Episodic Residual codes; unclassified (1 source) Early satiety; Translations: [Early satiety] Onset: 12-04-2024 Episodic Results Test Name Value Interpretation Reference Range Facility MR/[facility].BP[facility] 08-04-2025 MR/[facility]MS.BP [address], [address] [place] [id number] OFFICE VISIT Date of Service: 08/04/25 MR#: [id number] Acct: [id number] Name: DANNY HEATH Rep #: [id number] : 1980 Provider: WILLIAM ramirez Age/Sex: 44/M Location: [facility] [place] Status: Signed Intake Vital Signs 05/14/25 13:50 07/14/25 13:47 08/04/25 13:46 Height 5 ft 10 in 5 ft 10 in 5 ft 10 in BP 110/72 Blood Pressure Location Lt brachial Position Sitting Respiration 14 Pulse 72 Pulse Source NIBP Pulse Oximetry (%) 97 Oxygen Delivery Method room air BP Intake Visit Reasons: Bipolar Oracle Specialist Required: No Is patient in pain?: No Allergies No Known Allergies Allergy (Verified 08/04/25 14:02) Medications ???Medication ???Instructions ???Recorded ???Confirmed ???Type cholecalciferol (vitamin D3) 50 50 mcg PO DAILY 12/24/23 08/04/25 History mcg (2,000 unit) capsule flash glucose scanning reader #1 ea 12/24/23 12/24/23 Rx (FreeStyle Aniya 2 [place]) BD Ultra-Fine Hilary Pen Needle 32 #100 ea 03/24/24 08/04/25 Rx gauge x 5/32" (pen needle, diabetic) flash glucose sensor (FreeStyle #6 ea 05/15/24 05/15/24 Rx Aniya 2 Sensor kit) semaglutide 1 mg/dose (4 mg/3 mL) 1 mg (0.75 mL) subcut QWEEK #9 mL 05/15/24 08/04/25 Rx subcutaneous pen injector (Ozempic) metformin 1,000 mg tablet 1,000 mg PO BIDWMEAL #60 tabs 07/0708/04/25 Rx insulin degludec 100 unit/mL (3 30 unit subcut DAILY 05/02/2507/08 History mL) subcutaneous pen (Tresiba FlexTouch U-100 insulin) insulin lispro 100 unit/mL 1 sliding scale dose subcut PRN 08/04/25 History subcutaneous pen PRN hyperglycemia levothyroxine 175 mcg tablet 175 mcg PO DAILY 05/14/25 08/04/25 History melatonin 5 mg tablet 5 mg PO QHS 05/14/25 08/04/25 Hist ory rosuvastatin 40 mg tablet 40 mg PO DAILY 05/14/25 08/04/25 H istory topiramate 25 mg tablet 25 mg PO BID depressive disorder 0 05/14/25 08/04/25 History aripiprazole lauroxil 882 mg/3.2 mg IM 08/04/25 08/04/25 History mL suspension, ext.rel. IM syringe ([place]) lithium carbonate 450 mg 450 mg PO TID 30 days #90 tabs 08/04/25 History tablet,extended release mirtazapine 15 mg tablet 15 mg PO QHS 08/04/25 08/04/25 His tory Post menopausal: No Have you fallen in the past year?: No [facility] Medical History Dextromethorphan use disorder, mild, abuse Bipolar disorder Contact dermatitis due to poison los Diabetes Family History Other Alcohol abuse Anemia Arthritis Diabetes H/O transfusion of whole blood Heart disease High cholesterol Hypertension Mental disorder Myocardial infarction Thyroid disorder Social History household members: family housing: house Smoking Status: Never smoker alcohol intake: never substance use type: does not use what type of physical activity do you participate in: walking frequency: daily HPI History of Present Illness History provided by: patient and family (Zohra- sister and legal guardian ) HPI: Danny Heath (Bill) is a 44 year old male patient presenting today for an intake evaluation. Was recently hospitalized over the summer after he had taken multiple boxes of cold medication and his BG was over 500. Reports during taking the medication he was manic, not taking his medication, and was more aggressive. Reports was preciously seen [facility] and they had high turn over. Has transitioned from lurasidone to aripiprazole. Sleep: Has not been sleeping well. Admits to concerns with staying asleep. 3 hours per night on average. Has been staying ip to play video games. Interest: Denies feelings of depression. Enjoys preet, watching movies, and reading online. Energy: Does feel well rested overall. Energy is good. Motivation is good overall. Guilt: Admits to feelings of guilt, hopelessness, and worthlessness. Concentration: Denies concerns with focus, concentration, or inattention. Denies being easily distracted. Appetite: Appetite fluctuates. Admits to some small recent weight loss. Is currently taking ozempic. Psychomotor: WNL Suicide: Denies SI/HI. Memory: Admits to concerns with short and ocean transportation intermediary memory. Anxiety: Admits to frequent feelings of irritability. Admits to frequent feelings of anxiety. Does feel Naschitti has helped with this. Denies panic attacks. Admits to distraction for anxiety reduction. Obsessions: Compulsions: Denies Lisa: Reports manic episodes where he is more irritable, yelling. Reports during his first manic episode he was feeling more paranoid, rapid speaking (more content not included)... Normal [facility] Ferritinon 07-24-2025 Ferritin [Mass/Vol] 17 ng/mL Low 37-417 [facility] Comment on above: Order Comment: Order Date: 12/19/24 Order Info: [id number] - MIACRE Order Date: 04/03/25 Order Info: [id number] - MIALB Performed By: #### L 502.0250 #### [facility] [address] [place], [place], [id number] Iron+Iron Binding Capacityon 07-24-2025 Iron [Mass/Vol] 27 ug/dL Low 65-175 [facility] Comment on above: Order Comment: LYNNE Mann ADD IBC, EMBER, AND B12 TO LABS DRAWN 07/23/25 - EEGG Performed By: #### L 400.0001, L503.6550, L503.0106, L502.0250, L503.6030 ####[facility] [address] [place], [address] IRON SATURATION 7.1 Low 9-55 [facility] Comment on above: Order Comment: LYNNE Mann ADD IBC, EMBER, AND B12 TO LABS DRAWN 07/23/25 - EEGG Performed By: #### L 400.0001, L503.6550, L503.0106, L502.0250, L503.6030 ####[facility] [address] [place], [address] TIBC 384 ug/dL Normal 250-450 [facility] Comment on above: Order Comment: LYNNE Mann ADD IBC, EMBER, AND B12 TO LABS DRAWN 07/23/25 - EEGG Performed By: #### L 400.0001, L503.6550, L503.0106, L502.0250, L503.6030 ####[facility] [address] [place], [address] UIBC 357 ug/dL Normal 228-428 [facility] Comment on above: Order Comment: LYNNE Mann ADD IBC, EMBER, AND B12 TO LABS DRAWN 07/23/25 - EEGG Performed By: #### L 400.0001, L503.6550, L503.0106, L502.0250, L503.6030 ####[facility] [address] [place], [address] Vitamin B12on 07-24-2025 Cobalamin (Vitamin B12) [Mass/Vol] 1083 pg/mL High 180-914 [facility] Comment on above: Order Comment: LYNNE Mann ADD IBC, EMBER, AND B12 TO LABS DRAWN 07/23/25 - EEGG Performed By: #### L 400.0001, L503.6550, L503.0106, L502.0250, L503.6030 ####[facility] [address] [place], [address] CBC W/Diff, Automatedon 07-06 Absolute Lymph 1.83 X10 3/uL Normal 0.83-4.51 [facility] Comment on above: Order Comment: Order Date: 07/17/25Order Info: 0184-1 - CBCD Performed By: #### L 506.0400, L501.9985, L500.4100, L500.4050, L100.0100, L501.9520 ####[facility] [address] [place], [address] Absolute Neut 5.2 X10 3/uL Normal 2.0-7.7 [facility] Comment on above: Order Comment: Order Date: 07/17/25Order Info: 0184-1 - CBCD Performed By: #### L 506.0400, L501.9985, L500.4100, L500.4050, L100.0100, L501.9520 ####[facility] [address] [place], [address] Basophils/100 WBC (Bld) 0.7 % Normal 0-1 [facility] Comment on above: Order Comment: Order Date: 07/17/25Order Info: 018-1 - CBCD Performed By: #### L 506.0400, L501.9985, L500.4100, L500.4050, L100.0100, L501.9520 ####[facility] [address] [place], [address] Eosinophils/100 WBC (Bld) 13.9 % High 0-5 [facility] Comment on above: Order Comment: Order Date: 07/17/25Order Info: 018-1 - CBCD Performed By: #### L 506.0400, L501.9985, L500.4100, L500.4050, L100.0100, L501.9520 ####[facility] [address] [place], [address] Erythrocyte distribution width (RBC) [Ratio] 13.3 % Normal 11.6-14.6 [facility] Comment on above: Order Comment: Order Date: 07/17/25Order Info: 0184-1 - CBCD Performed By: #### L 506.0400, L501.9985, L500.4100, L500.4050, L100.0100, L501.9520 ####[facility] [address] [place], [address] Hematocrit (Bld) [Volume fraction] 36.3 % Low 40-54 [facility] Comment on above: Order Comment: Order Date: 07/17/25Order Info: 018-1 - CBCD Performed By: #### L 506.0400, L501.9985, L500.4100, L500.4050, L100.0100, L501.9520 ####[facility] [address] [place], [address] Hemoglobin (Bld) [Mass/Vol] 11.7 g/dL Low 13.0-16.5 [facility] Comment on above: Order Comment: Order Date: 07/17/25Order Info: 018-1 - CBCD Performed By: #### L 506.0400, L501.9985, L500.4100, L500.4050, L100.0100, L501.9520 ####[facility] [address] [place], [address] IG% 0.200 Normal 0.0-0.9 [facility] Comment on above: Order Comment: Order Date: 07/17/25Order Info: 018- - CBCD Result Comment: IG% - Immature Granulocytes (promyelocytes, myelocytes and metamyelocytes) > 1% indicates that a LEFT SHIFT is Present. Performed By: #### L 506.0400, L501.9985, L500.4100, L500.4050, L100.0100, L501.9520 ####[facility] [address] [place], [address] Lymphocytes/100 WBC (Bld) 20.6 % Normal 19-41 [facility] Comment on above: Order Comment: Order Date: 07/17/25Order Info: 0184-1 - CBCD Performed By: #### L 506.0400, L501.9985, L500.4100, L500.4050, L100.0100, L501.9520 ####[facility] [address] [place], [address] MCH (RBC) [Entitic mass] 29.9 pg Normal 27.0-32.0 [facility] Comment on above: Order Comment: Order Date: 07/17/25Order Info: 0184-1 - CBCD Performed By: #### L 506.0400, L501.9985, L500.4100, L500.4050, L100.0100, L501.9520 ####[facility] [address] [place], [address] MCHC (RBC) [Mass/Vol] 32.2 g/dL Normal 32-36 [facility] Comment on above: Order Comment: Order Date: 07/17/25Order Info: 0184-1 - CBCD Performed By: #### L 506.0400, L501.9985, L500.4100, L500.4050, L100.0100, L501.9520 ####[facility] [address] [place], [address] MCV (RBC) [Entitic vol] 92.8 fL Normal 80-94 [facility] Comment on above: Order Comment: Order Date: 07/17/25Order Info: 018-1 - CBCD Performed By: #### L 506.0400, L501.9985, L500.4100, L500.4050, L100.0100, L501.9520 ####[facility] [address] [place], [address] Monocytes/100 WBC (Bld) 6.5 % Normal 0-10 [facility] Comment on above: Order Comment: Order Date: 07/17/25Order Info: 0184-1 - CBCD Performed By: #### L 506.0400, L501.9985, L500.4100, L500.4050, L100.0100, L501.9520 ####[facility] [address] [place], [address] Neutrophils/100 WBC (Bld) 58.1 % Normal 47-70 [facility] Comment on above: Order Comment: Order Date: 07/17/25Order Info: 0184-1 - CBCD Performed By: #### L 506.0400, L501.9985, L500.4100, L500.4050, L100.0100, L501.9520 ####[facility] [address] [place], [address] Nucleated RBC (Bld) [#/Vol] 0 10*3/uL Normal 0-5 [facility] Comment on above: Order Comment: Order Date: 07/17/25Order Info: 0184-1 - CBCD Performed By: #### L 506.0400, L501.9985, L500.4100, L500.4050, L100.0100, L501.9520 ####[facility] [address] [place], [address] Platelet mean volume (Bld) [Entitic vol] 9.4 fL Normal 6.2-12.0 [facility] Comment on above: Order Comment: Order Date: 07/17/25Order Info: 0184-1 - CBCD Performed By: #### L 506.0400, L501.9985, L500.4100, L500.4050, L100.0100, L501.9520 ####[facility] [address] [place], [address] Platelets (Bld) [#/Vol] 496 10*3/uL High 150-450 [facility] Comment on above: Order Comment: Order Date: 07/17/25Order Info: 0184-1 - CBCD Performed By: #### L 506.0400, L501.9985, L500.4100, L500.4050, L100.0100, L501.9520 ####[facility] [address] [place], [address] RBC (Bld) [#/Vol] 3.91 10*6/uL Low 4.6-6.2 [facility] Comment on above: Order Comment: Order Date: 07/17/25Order Info: 0184-1 - CBCD Performed By: #### L 506.0400, L501.9985, L500.4100, L500.4050, L100.0100, L501.9520 ####[facility] [address] [place], [address] RDW SD 45.4 fl High 35.1-43.9 [facility] Comment on above: Order Comment: Order Date: 07/17/25Order Info: 018- - CBCD Performed By: #### L 506.0400, L501.9985, L500.4100, L500.4050, L100.0100, L501.9520 ####[facility] [address] [place], [address] WBC (Bld) [#/Vol] 8.9 10*3/uL Normal 4.4-11.0 [facility] Comment on above: Order Comment: Order Date: 07/17/25Order Info: [id number] - CBCD Performed By: #### L 506.0400, L501.9985, L500.4100, L500.4050, L100.0100, L501.9520 ####[facility] [address] [place], [address] Comprehensive Metabolic Prof [facility] 07-23-2025 Albumin [Mass/Vol] 4.1 g/dL Normal 3.5-5.0 [facility] Comment on above: Order Comment: Order Date: 07/17/25Order Info: 0786-1 - CMPOrder Info: [id number] - LIPIDOrder Info: [id number] - TSHOrder Info: 3024-7 - T4F Performed By: #### L 506.0400, L501.9985, L500.4100, L500.4050, L100.0100, L501.9520 ####[facility] [address] [place], [address] Albumin/Globulin [Mass ratio] 1.4 {ratio} Normal 0.9-2.4 [facility] Comment on above: Order Comment: Order Date: 07/17/25Order Info: 0786-1 - CMPOrder Info: [id number] - LIPIDOrder Info: 6-3 - TSHOrder Info: 3024-7 - T4F Performed By: #### L 506.0400, L501.9985, L500.4100, L500.4050, L100.0100, L501.9520 ####[facility] [address] [place], [address] ALK PHOS 328 U/L High 40-129 [facility] Comment on above: Order Comment: Order Date: 07/17/25Order Info: 86-1 - CMPOrder Info: [id number] - LIPIDOrder Info: 6-3 - TSHOrder Info: 3024-7 - T4F Performed By: #### L 506.0400, L501.9985, L500.4100, L500.4050, L100.0100, L501.9520 ####[facility] [address] [place], [address] ALT [Catalytic activity/Vol] 91 U/L High <=46 [facility] Comment on above: Order Comment: Order Date: 07/17/25Order Info: 785- - CMPOrder Info: [id number] - LIPIDOrder Info: 3 - TSHOrder Info: 3024-7 - T4F Performed By: #### L 506.0400, L501.9985, L500.4100, L500.4050, L100.0100, L501.9520 ####[facility] [address] [place], [address] AST [Catalytic activity/Vol] 47 U/L High <=37 [facility] Comment on above: Order Comment: Order Date: 07/17/25Order Info: 86-1 - CMPOrder Info: [id number] - LIPIDOrder Info: [id number] - TSHOrder Info: 3024-7 - T4F Performed By: #### L 506.0400, L501.9985, L500.4100, L500.4050, L100.0100, L501.9520 ####[facility] [address] [place], [address] Bilirubin [Mass/Vol] 0.17 mg/dL Normal 0.00-1.30 [facility] Comment on above: Order Comment: Order Date: 07/17/25Order Info: 86-1 - CMPOrder Info: [id number] - LIPIDOrder Info: [id number] - TSHOrder Info: 3024-7 - T4F Performed By: #### L 506.0400, L501.9985, L500.4100, L500.4050, L100.0100, L501.9520 ####[facility] [address] [place], [address] BUN/CRE 18.4 RATIO Normal 10-20 [facility] Comment on above: Order Comment: Order Date: 07/17/25Order Info: 86-1 - CMPOrder Info: [id number] - LIPIDOrder Info: 3 - TSHOrder Info: 3024-7 - T4F Performed By: #### L 506.0400, L501.9985, L500.4100, L500.4050, L100.0100, L501.9520 ####[facility] [address] [place], [address] Calcium [Mass/Vol] 9.7 mg/dL Normal 7.6-11.0 [facility] Comment on above: Order Comment: Order Date: 07/17/25Order Info: 86-1 - CMPOrder Info: [id number] - LIPIDOrder Info: 3 - TSHOrder Info: 3024-7 - T4F Performed By: #### L 506.0400, L501.9985, L500.4100, L500.4050, L100.0100, L501.9520 ####[facility] [address] [place], [address] Chloride [Moles/Vol] 108 mmol/L Normal 98-108 [facility] Comment on above: Order Comment: Order Date: 07/17/25Order Info: 86-1 - CMPOrder Info: [id number] - LIPIDOrder Info: 3 - TSHOrder Info: 3024-7 - T4F Performed By: #### L 506.0400, L501.9985, L500.4100, L500.4050, L100.0100, L501.9520 ####[facility] [address] [place], [address] CO2 [Moles/Vol] 19.9 mmol/L Low 21.0-32.0 [facility] Comment on above: Order Comment: Order Date: 07/17/25Order Info: 0786-1 - CMPOrder Info: [id number] - LIPIDOrder Info: [id number] - TSHOrder Info: 3024-7 - T4F Performed By: #### L 506.0400, L501.9985, L500.4100, L500.4050, L100.0100, L501.9520 ####[facility] [address] [place], [address] Creatinine [Mass/Vol] 0.84 mg/dL Normal 0.70-1.20 [facility] Comment on above: Order Comment: Order Date: 07/17/25Order Info: 0786-1 - CMPOrder Info: [id number] - LIPIDOrder Info: [id number] - TSHOrder Info: 3024-7 - T4F Performed By: #### L 506.0400, L501.9985, L500.4100, L500.4050, L100.0100, L501.9520 ####[facility] [address] [place], [address] GAP 12 Normal 5-15 [facility] Comment on above: Order Comment: Order Date: 07/17/25Order Info: 0786-1 - CMPOrder Info: [id number] - LIPIDOrder Info: [id number] - TSHOrder Info: 3024-7 - T4F Performed By: #### L 506.0400, L501.9985, L500.4100, L500.4050, L100.0100, L501.9520 ####[facility] [address] [place], [address] GFR/1.73 sq M.predicted among non-blacks MDRD (S/P/Bld) [Vol rate/Area] 112 mL/min/{1.73_m2} Normal >60 [facility] Comment on above: Order Comment: Order Date: 07/17/25Order Info: 07- - CMPOrder Info: [id number] - LIPIDOrder Info: 3 - TSHOrder Info: 7 - T4F Result Comment: mL/m in/1.73m2 CKD-EPI Creatinine Equation (2020) Performed By: #### L 506.0400, L501.9985, L500.4100, L500.4050, L100.0100, L501.9520 ####[facility] [address] [place], [address] Globulin (S) [Mass/Vol] 3.0 g/dL Normal 2.2-4.2 [facility] Comment on above: Order Comment: Order Date: 07/17/25Order Info: [id number] - CMPOrder Info: - LIPIDOrder Info: [id number] - TSHOrder Info: 7 - T4F Performed By: #### L 506.0400, L501.9985, L500.4100, L500.4050, L100.0100, L501.9520 ####[facility] [address] [place], [address] Glucose [Mass/Vol] 282 mg/dL High 70-99 [facility] Comment on above: Order Comment: Order Date: 07/17/25Order Info: 785- - CMPOrder Info: [id number] - LIPIDOrder Info: 3 - TSHOrder Info: 3027 - T4F Performed By: #### L 506.0400, L501.9985, L500.4100, L500.4050, L100.0100, L501.9520 ####[facility] [address] [place], [address] Potassium [Moles/Vol] 4.2 mmol/L Normal 3.3-5.1 [facility] Comment on above: Order Comment: Order Date: 07/17/25Order Info: 86-1 - CMPOrder Info: [id number] - LIPIDOrder Info: [id number] - TSHOrder Info: 3024-7 - T4F Performed By: #### L 506.0400, L501.9985, L500.4100, L500.4050, L100.0100, L501.9520 ####[facility] [address] [place], [address] Sodium [Moles/Vol] 140 mmol/L Normal 133-145 [facility] Comment on above: Order Comment: Order Date: 07/17/25Order Info: 86-1 - CMPOrder Info: [id number] - LIPIDOrder Info: [id number] - TSHOrder Info: 3024-7 - T4F Performed By: #### L 506.0400, L501.9985, L500.4100, L500.4050, L100.0100, L501.9520 ####[facility] [address] [place], [address] T PROT 7.1 g/dL Normal 5.9-8.4 [facility] Comment on above: Order Comment: Order Date: 07/17/25Order Info: 86-1 - CMPOrder Info: [id number] - LIPIDOrder Info: 3 - TSHOrder Info: 3024-7 - T4F Performed By: #### L 506.0400, L501.9985, L500.4100, L500.4050, L100.0100, L501.9520 ####[facility] [address] [place], [address] Urea nitrogen [Mass/Vol] 15 mg/dL Normal 4-19 [facility] Comment on above: Order Comment: Order Date: 07/17/25Order Info: 0786-1 - CMPOrder Info: [id number] - LIPIDOrder Info: 3 - TSHOrder Info: 3024-7 - T4F Performed By: #### L 506.0400, L501.9985, L500.4100, L500.4050, L100.0100, L501.9520 ####[facility] [address] [place], [address] Hemoglobin A1con 07-23-2025 HbA1c (Bld) [Mass fraction] 6.1 % High <=5.6 [facility] Comment on above: Order Comment: Order Date: 07/17/25Order Info: [id number] - A1C Result Comment: Norm al < 5.7 % Prediabetic 5.7 - 6.4 % Diabetic >or= 6.5 % Please note range changes. Performed By: #### L 506.0400, L501.9985, L500.4100, L500.4050, L100.0100, L501.9520 ####[facility] [address] [place], [address] Lipid Profileon 07-23-2025 CHOL:HDL 1.74 Normal [facility] Comment on above: Order Comment: Order Date: 07/17/25Order Info: 0786-1 - CMPOrder Info: [id number] - LIPIDOrder Info: [id number] - TSHOrder Info: [id number] - T4F Performed By: #### L 506.0400, L501.9985, L500.4100, L500.4050, L100.0100, L501.9520 ####[facility] [address] [place], [address] Cholesterol [Mass/Vol] 91 mg/dL Normal <=200 [facility] Comment on above: Order Comment: Order Date: 07/17/25Order Info: 0786-1 - CMPOrder Info: [id number] - LIPIDOrder Info: [id number] - TSHOrder Info: 3027 - T4F Result Comment: Chol esterol level, Desirable <200 mg/dL Borderline high cholesterol 200-239 mg/dL High cholesterol >=240 mg/dL Recommendations of the NCEP Adult Treatment Panel for the following risk-cutoff thresholds for the [place] population. Performed By: #### L 506.0400, L501.9985, L500.4100, L500.4050, L100.0100, L501.9520 ####[facility] [address] [place], [address] Cholesterol in HDL [Mass/Vol] 53 mg/dL Normal [facility] Comment on above: Order Comment: Order Date: 07/17/25Order Info: 0786-1 - CMPOrder Info: [id number] - LIPIDOrder Info: [id number] - TSHOrder Info: [id number] - T4F Result Comment: [place] onal Cholesterol Education Program (NCEP) guidelines: <40 mg/dL: Low HDL-cholesterol (major risk factor for CHD) >= 60 mg/dL: High HDL-cholesterol (negative risk factor for CHD) HDL-cholesterol is affected by a number of factors, e.g. smoking, exercise, hormones, sex and age. Performed By: #### L 506.0400, L501.9985, L500.4100, L500.4050, L100.0100, L501.9520 ####[facility] [address] [place], [address] Cholesterol in LDL [Mass/Vol] 26 mg/dL Normal [facility] Comment on above: Order Comment: Order Date: 07/17/25Order Info: 0786-1 - CMPOrder Info: [id number] - LIPIDOrder Info: 3 - TSHOrder Info: 7 - T4F Result Comment: Bord kjwuly=455-815 mg/dL Higher Subq=175 mg/dL or greater Friedwald Equation for LDL-C Performed By: #### L 506.0400, L501.9985, L500.4100, L500.4050, L100.0100, L501.9520 ####[facility] [address] [place], [address] Cholesterol in VLDL [Mass/Vol] 13 mg/dL Normal 5-40 [facility] Comment on above: Order Comment: Order Date: 07/17/25Order Info: 0786-1 - CMPOrder Info: [id number] - LIPIDOrder Info: 6-3 - TSHOrder Info: 3027 - T4F Performed By: #### L 506.0400, L501.9985, L500.4100, L500.4050, L100.0100, L501.9520 ####[facility] [address] [place], [place], [address] Triglyceride [Mass/Vol] 65 mg/dL Normal [facility] Comment on above: Order Comment: Order Date: 07/17/25Order Info: 0786-1 - CMPOrder Info: [id number] - LIPIDOrder Info: 3 - TSHOrder Info: 7 - T4F Result Comment: The drugs N-Acetylcysteine and Metamizole may falsely depress this assay. Normal range: <150 mg/dL Borderline High: 150-199 mg/dL High: 200-499 mg/dL Very High: >500 mg/dL Performed By: #### L 506.0400, L501.9985, L500.4100, L500.4050, L100.0100, L501.9520 ####[facility] [address] [place], [place], [address] Microalb:Creat Ratio,Random URon 07-23-2025 Creatinine [Mass/Vol] 52.10 mg/dL Normal 39.00-259.00 [facility] Comment on above: Order Comment: Order Date: 07/17/25Order Info: [id number] - MIALB Performed By: #### L 400.0001, L503.6550, L503.0106, L502.0250, L503.6030 ####[facility] [address] [place], [place], [address] MALB:CREAT 644.9 mg/g CRE High <30 mg/g CRE [facility] Comment on above: Order Comment: Order Date: 07/17/25Order Info: [id number] - MIALB Performed By: #### L 400.0001, L503.6550, L503.0106, L502.0250, L503.6030 ####[facility] [address], [address] MICROALBUMIN,UR 336.0 mg/L Normal <20 mg/L [facility] Comment on above: Order Comment: Order Date: 07/17/25Order Info: [id number] - MIALB Performed By: #### L 400.0001, L503.6550, L503.0106, L502.0250, L503.6030 ####[facility] [address] [place], [address] T4 Free Directon 07-23-2025 T4 FREE DIRECT 1.20 ng/dL Normal 0.76-1.46 [facility] Comment on above: Order Comment: Order Date: 07/17/25Order Info: 0786-1 - CMPOrder Info: [id number] - LIPIDOrder Info: [id number] - TSHOrder Info: 3024-7 - T4F Performed By: #### L 506.0400, L501.9985, L500.4100, L500.4050, L100.0100, L501.9520 ####[facility] [address] [place], [address] Thyroid Stim Hormone (TSH)on 07-23-2025 TSH 1.030 uIU/mL Normal 0.300-4.200 [facility] Comment on above: Order Comment: Order Date: 07/17/25Order Info: [id number] - CMPOrder Info: [id number] - LIPIDOrder Info: [id number] - TSHOrder Info: 3024-7 - T4F Performed By: #### L 506.0400, L501.9985, L500.4100, L500.4050, L100.0100, L501.9520 ####[facility] [address] [place], [address] Urinalysis, Completeon 09-18 -2025 RBC 0-5 SEEN Normal 0-5 [facility] Comment on above: Order Comment: Urine , Random Performed By: #### L 400.0001, L503.6550, L503.0106, L502.0250, L503.6030 ####[facility] [address] [place], [address] WBC 0-5 SEEN Normal 0-5 [facility] Comment on above: Order Comment: Urine , Random Performed By: #### L 400.0001, L503.6550, L503.0106, L502.0250, L503.6030 ####[facility] [address] [place], [address] BACTERIA 0 SEEN Normal None Seen [facility] Comment on above: Order Comment: Urine , Random Performed By: #### L 400.0001, L503.6550, L503.0106, L502.0250, L503.6030 ####[facility] [address] [place], [address] EPI,SQUAMOUS 0 SEEN Normal 0-5 [facility] Comment on above: Order Comment: Urine , Random Performed By: #### L 400.0001, L503.6550, L503.0106, L502.0250, L503.6030 ####[facility] [address] [place], [address] Mucus Ql (Urine sed) 0 SEEN Normal [facility] Comment on above: Order Comment: Urine , Random Performed By: #### L 400.0001, L503.6550, L503.0106, L502.0250, L503.6030 ####[facility] [address] [place], [address] Bedside Glucoseon 05-15-2025 FINGERSTICK GLU 183 mg/dL High 74-106 [facility] Comment on above: Result Comment: CHRIS SANDERSON OF PATIENT CARE PER NURSING PROTOCOL Performed By: #### L 501.080 #### [facility] [address] [place], [place], [id number] [facility] deOrdered By: Timmy Benites on 05-15-2025 Glucose [Mass/Vol] 183 mg/dL High 74-106 [place] [facility] Comment on above: MANAGEMENT OF PATIEN T CARE PER NURSING PROTOCOL Absolute lymphocyte countOrd ered By: Timmy Benites on 05-14-2025 Lymphocytes Auto (Unsp spec) [#/Vol] 3.04 10*3/uL 0.83-4.51 [facility] Absolute neutrophil countOrd ered By: Timmy Bneites on 05-14-2025 Neutrophils (Bld) [#/Vol] 8.4 10*3/uL High 2.0-7.7 [facility] Alcohol, Blood (Medical)-Ser umon 05-14-2025 SERUM ETOH < 10.1 Normal <=10.0 [facility] Comment on above: Result Comment: This test is for medical purposes only. The legal definition of intoxication varies according to local law. Performed By: #### L 501.080 #### [facility] [address] [place], [place], [id number] Amphetamine detection with 1 000 ng/mL as cutoffOrdered By: Timmy Benites on 05-14-2025 Amphetamines Screen method >1000 ng/mL Ql (U) Negative < 200 ng/mL [facility] Anion gap in Serum or Plasma Ordered By: Timmy Benites on 05-14-2025 Anion gap [Moles/Vol] 14 mmol/L 5-15 [facility] Automated lymphocyte count a s percentage of total leukocytesOrdered By: Timmy Benites on 05-14-2025 Lymphocytes/100 WBC Auto (Unsp spec) 23.2 % 19-41 [facility] BUN/creatinine ratioOrdered By: Timmy Benites on 05-14-2025 Urea nitrogen/Creatinine [Mass ratio] 25.5 mg/mg High 08-24 [facility] Basic Metabolic Profile (BMP )on 05-14-2025 BUN/CRE 25.5 RATIO High 08-24 [facility] Comment on above: Performed By: #### L 501.9520, L500.4100 #### [facility] [address] [place], [address] Calcium [Mass/Vol] 10.1 mg/dL Normal 7.6-11.0 [facility] Comment on above: Performed By: #### L 501.9520, L500.4100 #### [facility] [address] [place], [address] Chloride [Moles/Vol] 104 mmol/L Normal 98-108 [facility] Comment on above: Performed By: #### L 501.9520, L500.4100 #### [facility] [address] [place], [address] CO2 [Moles/Vol] 21.1 mmol/L Normal 21.0-32.0 [facility] Comment on above: Performed By: #### L 501.9520, L500.4100 #### [facility] [address] [place], [address] Creatinine [Mass/Vol] 0.72 mg/dL Normal 0.70-1.20 [facility] Comment on above: Performed By: #### L 501.9520, L500.4100 #### [facility] [address] [place], [address] ECRCL 138.00 ml/min Normal 50-250 [facility] Comment on above: Performed By: #### L [id number], L500.4100 #### [facility] [address] [place], [address] GAP 14 Normal 5-15 [facility] Comment on above: Performed By: #### L 501.9520, L500.4100 #### [facility] [address] [place], [address] GFR/1.73 sq M.predicted among non-blacks MDRD (S/P/Bld) [Vol rate/Area] 117 mL/min/{1.73_m2} Normal >60 [facility] Comment on above: Result Comment: mL/m in/1.73m2 CKD-EPI Creatinine Equation (2020) Performed By: #### L 501.9520, L500.4100 #### [facility] [address] [place], [address] Glucose [Mass/Vol] 86 mg/dL Normal 70-99 [facility] Comment on above: Performed By: #### L 501.9520, L500.4100 #### [facility] [address] [place], [address] Potassium [Moles/Vol] 4.0 mmol/L Normal 3.3-5.1 [facility] Comment on above: Performed By: #### L 501.9520, L500.4100 #### [facility] [address] [place], [address] Sodium [Moles/Vol] 139 mmol/L Normal 133-145 [facility] Comment on above: Performed By: #### L 501.9520, L500.4100 #### [facility] [address] [place], [address] Urea nitrogen [Mass/Vol] 18 mg/dL Normal 4-19 [facility] Comment on above: Performed By: #### L 501.9520, L500.4100 #### [facility] [address] [place], [address] Basophil percentageOrdered B y: Timmy Benites on 05-14-2025 Basophils/100 WBC (Bld) 0.5 % 0-1 [facility] Bedside Glucoseon 05-14-2025 FINGERSTICK GLU 95 mg/dL Normal 74-106 [facility] Comment on above: Result Comment: CHRIS SANDERSON OF PATIENT CARE PER NURSING PROTOCOL Performed By: #### L 501.080 #### [facility] [address] [place], [address] FINGERSTICK GLU 74 mg/dL Normal 74-106 [facility] Comment on above: Result Comment: CHRIS SANDERSON OF PATIENT CARE PER NURSING PROTOCOL Performed By: #### L 502.0250 #### [facility] [address] [place], [address] CBC W/Diff, Automatedon 07-1 0-2025 Absolute Lymph 3.04 X10 3/uL Normal 0.83-4.51 [facility] Comment on above: Performed By: #### L 501.080 #### [facility] [address] [place], [address] Absolute Neut 8.4 X10 3/uL High 2.0-7.7 [facility] Comment on above: Performed By: #### L 501.080 #### [facility] [address] [place], [address] Basophils/100 WBC (Bld) 0.5 % Normal 0-1 [facility] Comment on above: Performed By: #### L 501.080 #### [facility] [address] [place], [address] Eosinophils/100 WBC (Bld) 3.4 % Normal 0-5 [facility] Comment on above: Performed By: #### L 501.080 #### [facility] [address] [place], [address] Erythrocyte distribution width (RBC) [Ratio] 14.2 % Normal 11.6-14.6 [facility] Comment on above: Performed By: #### L 501.080 #### [facility] [address] [place], [address] Hematocrit (Bld) [Volume fraction] 41.9 % Normal 40-54 [facility] Comment on above: Performed By: #### L 501.080 #### [facility] [address] [place], [address] Hemoglobin (Bld) [Mass/Vol] 13.6 g/dL Normal 13.0-16.5 [facility] Comment on above: Performed By: #### L 501.080 #### [facility] [address] [place], [address] IG% 0.300 Normal 0.0-0.9 [facility] Comment on above: Result Comment: IG% - Immature Granulocytes (promyelocytes, myelocytes and metamyelocytes) > 1% indicates that a LEFT SHIFT is Present. Performed By: #### L 501.080 #### [facility] [address] [place], [address] Lymphocytes/100 WBC (Bld) 23.2 % Normal 19-41 [facility] Comment on above: Performed By: #### L 501.080 #### [facility] [address] [place], [address] MCH (RBC) [Entitic mass] 30.0 pg Normal 27.0-32.0 [facility] Comment on above: Performed By: #### L 501.080 #### [facility] [address] [place], [address] MCHC (RBC) [Mass/Vol] 32.5 g/dL Normal 32-36 [facility] Comment on above: Performed By: #### L 501.080 #### [facility] [address] [place], [address] MCV (RBC) [Entitic vol] 92.3 fL Normal 80-94 [facility] Comment on above: Performed By: #### L 501.080 #### [facility] [address] [place], [address] Monocytes/100 WBC (Bld) 8.3 % Normal 0-10 [facility] Comment on above: Performed By: #### L 501.080 #### [facility] [address] [place], [address] Neutrophils/100 WBC (Bld) 64.3 % Normal 47-70 [facility] Comment on above: Performed By: #### L 501.080 #### [facility] [address] [place], [address] Nucleated RBC (Bld) [#/Vol] 0 10*3/uL Normal 0-5 [facility] Comment on above: Performed By: #### L 501.080 #### [facility] [address] [place], [address] Platelet mean volume (Bld) [Entitic vol] 9.2 fL Normal 6.2-12.0 [facility] Comment on above: Performed By: #### L 501.080 #### [facility] [address] [place], [address] Platelets (Bld) [#/Vol] 397 10*3/uL Normal 150-450 [facility] Comment on above: Performed By: #### L 501.080 #### [facility] [address] [place], [address] RBC (Bld) [#/Vol] 4.54 10*6/uL Low 4.6-6.2 [facility] Comment on above: Performed By: #### L 501.080 #### [facility] [address] [place], [address] RDW SD 48.6 fl High 35.1-43.9 [facility] Comment on above: Performed By: #### L 501.080 #### [facility] [address] [place], [address] WBC (Bld) [#/Vol] 13.1 10*3/uL High 4.4-11.0 [facility] Comment on above: Performed By: #### L 501.080 #### [facility] [address] [place], [address] Carbon dioxide, total [Moles /volume] in Central venous bloodOrdered By: Timmy Benites on 05-14-2025 CO2 [Moles/Vol] 21.1 mmol/L 21.0-32.0 [facility] Chloride assayOrdered By: Sundar Benites on 05-14-2025 Chloride [Moles/Vol] 104 mmol/L 98-108 [facility] Emergency Department Summary on 05-14-2025 Emergency Department Summary [facility] Medical Records Department [address] [place] [address] Emergency Department Summary 05/14/25 MR#: [id number] Acct: [id number] Name: DANNY HEATH Rep #: [id number] : 1980 44 From: Timmy Benites DO PCP: Dr. Denise Reyes MD Status:REG ER Location: ED HPI History of Present Illness Chief Complaint: Mental Health Narrative Narrative: Patient is a 44-year-old male with past medical history of bipolar disorder, hypothyroidism, diabetes who presented to the emergency department via EMS after having an argument with his father earlier. Patient has a legal guardian his sister and she notes that he has not been taking care of himself recently she notes that he was recently released from a psychiatric facility. She states that the living situation at the parent home was not safe currently and notes that he has been off his meds for a few days ever since being getting out. She was concerned therefore she had him sent here for further evaluation management. Patient denies any suicidal homicidal ideations [facility] Medical History Dextromethorphan use disorder, mild, abuse Bipolar disorder Contact dermatitis due to poison los Diabetes Home Medications ???Medication ???Instructions ???Recorded ???Last Taken ???Type cholecalciferol (vitamin D3) 50 50 mcg PO DAILY 12/24/23 Unknown H istory mcg (2,000 unit) capsule flash glucose scanning reader #1 ea 12/24/23 Unknown Rx (FreeStyle Aniya 2 [place]) lithium carbonate 450 mg 450 mg PO DAILY 30 days #60 tabs 0 01/31/24 Unknown History tablet,extended release lurasidone 40 mg tablet (Latuda) 60 mg PO DAILY 01/31/24 Unknown Hi story melatonin 5 mg tablet 5 mg PO HS 01/31/24 Unknown Histor y BD Ultra-Fine Hilary Pen Needle 32 #100 ea 03/24/24 Unknown Rx gauge x 5/32" (pen needle, diabetic) flash glucose sensor (FreeStyle #6 ea 05/15/24 Unknown Rx Aniya 2 Sensor kit) semaglutide 1 mg/dose (4 mg/3 mL) 1 mg (0.75 mL) subcut QWEEK #9 mL 05/15/24 Unknown Rx subcutaneous pen injector (Ozempic) metformin 1,000 mg tablet 1,000 mg PO BIDWMEAL #60 tabs 07/07 01/26 Unknown Rx insulin degludec 100 unit/mL (3 30 unit subcut DAILY 05/02/25 Unkn own History mL) subcutaneous pen (Tresiba FlexTouch U-100 insulin) insulin lispro 100 unit/mL 1 sliding scale dose subcut PRN Unknown History subcutaneous pen PRN hyperglycemia levothyroxine 200 mcg tablet 175 mcg PO DAILY 05/02/25 Unknown History rosuvastatin 5 mg tablet 40 mg PO DAILY 05/02/25 Unknown Hi story levothyroxine 175 mcg tablet 175 mcg PO DAILY 05/14/25 Unknown History melatonin 5 mg capsule 5 mg PO QHS 05/14/25 Unknown Histo ry melatonin 5 mg tablet 5 mg PO QHS 05/14/25 Unknown Histo ry naloxone 4 mg/actuation nasal spray spray intranasal 05/14/25 Unkno wn History rosuvastatin 40 mg tablet 40 mg PO DAILY 05/14/25 Unknown Hi story topiramate 25 mg tablet 25 mg PO BID depressive disorder 0 05/14/25 Unknown History Allergy/AdvReac Type Severity Reaction Status Date / Time No Known Allergies Allergy Verified 05/14/25 13:52 Family History Other Alcohol abuse Anemia Arthritis Diabetes H/O transfusion of whole blood Heart disease High cholesterol Hypertension Mental disorder Myocardial infarction Thyroid disorder Social History household members: family housing: house Smoking Status: Current every day smoker tobacco type: cigars alcohol intake: never substance use type: does not use what type of physical activity do you participate in: walking frequency: daily ROS ROS ED ROS Narrative Constitutional: Denies fevers, chills, headaches Eyes: Denies double vision Cardiovascular: Denies chest pain Respiratory: Denies shortness of breath Abdomen: Denies abdominal pain nausea vomit diarrhea : Denies any urinary symptoms Neurological: Denies any numbness, wheeze, tingling Musculoskeletal: Denies any back pain Skin: Denies any rashes or lesions EXAM Physical Exam Narrative Exam Narrative: General: Patient was lying in bed rest comfortably did not appear to be acute distress Head: Atraumatic, normocephalic Eyes: PERRL bilaterally, EOMI blood, no conjunctival injection noted Neck: Soft, supple, trachea midline Cardiovascular: Regular rate and rhythm no murmurs gallops rubs noted Respiratory: Clear to auscultation bilaterally Extremities: +5/5 strength noted in the bilateral upper and lower extremities Neurological: Patient following commands knew that he was at [facility] year is 2024 Skin: Warm, dry, intact no rashes or lesions noted Psychiatric: Calm, cooperative (more content not included)... Normal [facility] Eosinophil percentageOrdered By: Timmy Benites on 05-14-2025 Eosinophils/100 WBC (Bld) 3.4 % 0-5 [facility] Erythrocyte distribution wid th ratioOrdered By: Timmy Benites on 05-14-2025 Erythrocyte distribution width (RBC) [Ratio] 14.2 % 11.6-14.6 [facility] Erythrocyte distribution wid th standard deviationOrdered By: Timmy Benites on 05-14-2025 Erythrocyte distribution width (RBC) [Ratio] 48.6 fl High 35.1-43.9 [facility] Glomerular filtration rate ( GFR) estimation/1.73 sq m using serum, plasma, or whole bOrdered By: Timmy Benites on 05-14-2025 GFR/1.73 sq M.predicted among non-blacks MDRD (S/P/Bld) [Vol rate/Area] 117 mL/min/{1.73_m2} >60 [facility] Comment on above: mL/min/1.73m2 CKD-EP I Creatinine Equation (2020) Hematocrit Auto (Bld) [Volum e fraction]Ordered By: Timmy Benites on 05-14-2025 Hematocrit (Bld) [Volume fraction] 41.9 % 40-54 [facility] Hemoglobin measurementOrdere d By: Timmy Benites on 05-14-2025 Hemoglobin (Bld) [Mass/Vol] 13.6 g/dL 13.0-16.5 [facility] Immature granulocytes/100 WB C Auto (Bld)Ordered By: Timmy Benites on 05-14-2025 Immature granulocytes/100 WBC (Bld) 0.300 % 0.0-0.9 [facility] Comment on above: IG% - Immature Granu locytes (promyelocytes, myelocytes and metamyelocytes) > 1% indicates that a LEFT SHIFT is Present. MCV (mean corpuscular volume ) determinationOrdered By: Timmy Benites on 05-14-2025 MCV (RBC) [Entitic vol] 92.3 fL 80-94 [facility] Mean corpuscular hemoglobin (MCH) determinationOrdered By: Timmy Benites on 05-14-2025 MCH (RBC) [Entitic mass] 30.0 pg 27.0-32.0 [facility] Mean corpuscular hemoglobin concentration (MCHC) determinationOrdered By: Timmy Benites on 05-14-2025 MCHC (RBC) [Mass/Vol] 32.5 g/dL 32-36 [facility] Mean platelet volume determi nationOrdered By: Timmy Benites on 05-14-2025 Platelet mean volume (Bld) [Entitic vol] 9.2 fL 6.2-12.0 [facility] Monocyte percentageOrdered B y: Timmy Benites on 05-14-2025 Monocytes/100 WBC (Bld) 8.3 % 0-10 [facility] Neutrophil percentageOrdered By: Timmy Benites on 05-14-2025 Neutrophils/100 WBC (Bld) 64.3 % 47-70 [facility] No Panel InformationOrdered By: Timmy Benites on 05-14-2025 Urine Buprenorphine Qualitative Negative < 200 ng/mL [facility] Urine Oxycodone Screen Negative < 100 ng/mL [facility] Nucleated red blood cell per centageOrdered By: Timmy Benites on 05-14-2025 Nucleated RBC/100 WBC (Bld) [Ratio] 0 % 0-5 [facility] Platelet countOrdered By: Sundar Benites on 05-14-2025 Platelets (Bld) [#/Vol] 397 10*3/uL 150-450 [facility] Potassium measurement (mass/ volume)Ordered By: Timmy Benites on 05-14-2025 Potassium (Unsp spec) [Mass/Vol] 4.0 mmol/L 3.3-5.1 [facility] Quantitative urine opiates m easurementOrdered By: Timmy Benites on 05-14-2025 Opiates Ql (U) Negative < 300 ng/mL [facility] RBC Auto (Bld) [#/Vol]Ordere d By: Timmy Benites on 05-14-2025 RBC (Bld) [#/Vol] 4.54 10*6/uL Low 4.6-6.2 [facility] Screening urine fentanyl luciana surementOrdered By: Timmy Benites on 05-14-2025 fentaNYL Screen Ql (U) Negative [facility] Serum creatinine measurement (mass/volume)Ordered By: Timmy Benites on 05-14-2025 Creatinine [Mass/Vol] 0.72 mg/dL 0.70-1.20 [facility] Serum glucose measurement (m ass/volume)Ordered By: Timmy Benites on 05-14-2025 Glucose [Mass/Vol] 86 mg/dL 70-99 [facility] Serum or plasma calcium kain urement (mass/volume)Ordered By: Timmy Benites on 05-14-2025 Calcium [Mass/Vol] 10.1 mg/dL 7.6-11.0 [facility] Serum or plasma ethanol kain urement (mass/volume)Ordered By: Timmy Benites on 05-14-2025 Ethanol [Mass/Vol] mg/dL <10.1 [facility] Comment on above: This test is for med ical purposes only. The legal definition of intoxication varies according to local law. Serum or plasma urea nitroge n measurement (mass/volume)Ordered By: Timmy Benites on 05-14-2025 Urea nitrogen [Mass/Vol] 18 mg/dL 4-19 [facility] Sodium levelOrdered By: Jamir Benites on 05-14-2025 Sodium [Moles/Vol] 139 mmol/L 133-145 [facility] Urine Drug Screen (VISTA)on 05-14-2025 AMPHETAMINES Negative Normal <1000 ng/mL [facility] Comment on above: Performed By: #### L 501.9520, L500.4100 #### [facility] [address] [place], [address] BARBITIURATES Negative Normal < 200 ng/mL [facility] Comment on above: Performed By: #### L 501.9520, L500.4100 #### [facility] [address] [place], [address] BENZODIAZIPINE Negative Normal < 200 ng/mL [facility] Comment on above: Performed By: #### L 501.9520, L500.4100 #### [facility] [address] [place], [address] BUP Ur Drug Scr Negative Normal < 200 ng/mL [facility] Comment on above: Performed By: #### L 501.9520, L500.4100 #### [facility] [address] [place], [address] COCAINE Negative Normal < 300 ng/mL [facility] Comment on above: Performed By: #### L 501.9520, L500.4100 #### [facility] [address] [place], [address] Fentanyl Negative Normal [facility] Comment on above: Performed By: #### L 501.9520, L500.4100 #### [facility] [address] [place], [address] METHADONE Negative Normal < 300 ng/mL [facility] Comment on above: Performed By: #### L 501.9520, L500.4100 #### [facility] [address] [place], [address] OPIATES Negative Normal < 300 ng/mL [facility] Comment on above: Performed By: #### L 501.9520, L500.4100 #### [facility] [address] [place], [address] OXYCODONE Negative Normal < 100 ng/mL [facility] Comment on above: Performed By: #### L 501.9520, L500.4100 #### [facility] [address] [place], [address] PCP Negative Normal < 25 ng/mL [facility] Comment on above: Performed By: #### L 501.9520, L500.4100 #### [facility] [address] [place], [address] THC Negative Normal < 50 ng/mL [facility] Comment on above: Performed By: #### L 501.9520, L500.4100 #### [facility] [address] [place], [address] Urine benzodiazepine levelOr dered By: Timmy Benites on 05-14-2025 Benzodiazepines Ql (U) Negative < 200 ng/mL [facility] Urine cocaine levelOrdered B y: Timmy Benites on 05-14-2025 Cocaine Ql (U) Negative < 300 ng/mL [facility] Urine puwwn-7-xrsbyosqvphtve abinol (THC) measurementOrdered By: Timmy Benites on 05-14-2025 Cannabinoids Screen Ql (U) Negative < 50 ng/mL [facility] Urine phencyclidine (PCP) de tectionOrdered By: Timmy Benites on 05-14-2025 Phencyclidine Ql (U) Negative < 25 ng/mL [facility] White blood cell (WBC) count Ordered By: Timmy Benites on 05-14-2025 WBC (Bld) [#/Vol] 13.1 10*3/uL High 4.4-11.0 [facility] Absolute lymphocyte countOrd ered By: Narayan Mckenzie on 05-02-2025 Lymphocytes Auto (Unsp spec) [#/Vol] 3.49 10*3/uL 0.83-4.51 [facility] Absolute neutrophil countOrd ered By: Narayan Mckenzie on 05-02-2025 Neutrophils (Bld) [#/Vol] 7.9 10*3/uL High 2.0-7.7 [facility] Alcohol, Blood (Medical)-Ser umon 05-02-2025 SERUM ETOH < 10.1 Normal <=10.0 [facility] Comment on above: Result Comment: Hemo lysis Present, Results may be affected. This test is for medical purposes only. The legal definition of intoxication varies according to local law. Performed By: #### L 500.4050 #### [facility] [address] [place], [address] Amphetamine detection with 1 000 ng/mL as cutoffOrdered By: Narayan Mckenzie on 05-02-2025 Amphetamines Screen method >1000 ng/mL Ql (U) Negative < 200 ng/mL [facility] Anion gap in Serum or Plasma Ordered By: Narayan Mckenzie on 05-02-2025 Anion gap [Moles/Vol] 12 mmol/L 5-15 [facility] Automated blood erythrocyte countOrdered By: Narayan Mckenzie on 05-02-2025 RBC (Bld) [#/Vol] 4.50 10*6/uL Low 4.6-6.2 [facility] Comment on above: Performed By: #### L 502.0250 #### [facility] [address] [place], [place], [id number] Automated blood hematocrit ( percentage)Ordered By: Narayan Mckenzie on 05-02-2025 Hematocrit (Bld) [Volume fraction] 40.7 % Normal 40-54 [facility] Comment on above: Performed By: #### L 502.0250 #### [facility] [address] [place], [place], [id number] Automated lymphocyte count a s percentage of total leukocytesOrdered By: Narayan Mckenzie on 05-02-2025 Lymphocytes/100 WBC Auto (Unsp spec) 26.3 % 19-41 [facility] BUN/creatinine ratioOrdered By: Narayan Mckenzie on 05-02-2025 Urea nitrogen/Creatinine [Mass ratio] 20.8 mg/mg High 10- [facility] Basic Metabolic Profile (BMP )on 05-02-2025 BUN/CRE 20.8 RATIO High - [facility] Comment on above: Order Comment: Order Date: 04/03/25 Order Info: [id number] - CMP Order Info: [id number] - LIPID Order Info: [id number] - TSH Order Info: 7 - T4F Performed By: #### L 501.9520, L500.4100 #### [facility] [address] [place], [address] Calcium [Mass/Vol] 9.8 mg/dL Normal 7.6-11.0 [facility] Comment on above: Order Comment: Order Date: 04/03/25 Order Info: [id number] - CMP Order Info: [id number] - LIPID Order Info: 3 - TSH Order Info: 7 - T4F Performed By: #### L 501.9520, L500.4100 #### [facility] [address] [place], [address] Chloride [Moles/Vol] 105 mmol/L Normal 98-108 [facility] Comment on above: Order Comment: Order Date: 04/03/25 Order Info: [id number] - CMP Order Info: [id number] - LIPID Order Info: [id number] - TSH Order Info: [id number] - T4F Performed By: #### L 501.9520, L500.4100 #### [facility] [address] [place], [address] CO2 [Moles/Vol] 21.4 mmol/L Normal 21.0-32.0 [facility] Comment on above: Order Comment: Order Date: 04/03/25 Order Info: [id number] - CMP Order Info: [id number] - LIPID Order Info: [id number] - TSH Order Info: [id number] - T4F Performed By: #### L 501.9520, L500.4100 #### [facility] [address] [place], [address] Creatinine [Mass/Vol] 0.91 mg/dL Normal 0.70-1.20 [facility] Comment on above: Order Comment: Order Date: 04/03/25 Order Info: [id number] - CMP Order Info: [id number] - LIPID Order Info: 3 - TSH Order Info: [id number] - T4F Performed By: #### L 501.9520, L500.4100 #### [facility] [address] [place], [place], [id number] ECRCL 109.19 ml/min Normal 50-250 [facility] Comment on above: Order Comment: Order Date: 04/03/25 Order Info: [id number] - CMP Order Info: [id number] - LIPID Order Info: 3 - TSH Order Info: [id number] - T4F Performed By: #### L 501.9520, L500.4100 #### [facility] [address] [place], [address] GAP 12 Normal 5-15 [facility] Comment on above: Order Comment: Order Date: 04/03/25 Order Info: 07- - CMP Order Info: [id number] - LIPID Order Info: 301-3 - TSH Order Info: 3024-7 - T4F Performed By: #### L 501.9520, L500.4100 #### [facility] [address] [place], [address] GFR/1.73 sq M.predicted among non-blacks MDRD (S/P/Bld) [Vol rate/Area] 109 mL/min/{1.73_m2} Normal >60 [facility] Comment on above: Order Comment: Order Date: 04/03/25 Order Info: 785-1 - CMP Order Info: - LIPID Order Info: [id number] - TSH Order Info: 7 - T4F Result Comment: mL/m in/1.73m2 CKD-EPI Creatinine Equation (2020) Performed By: #### L 501.9520, L500.4100 #### [facility] [address] [place], [address] Glucose [Mass/Vol] 41 mg/dL Invalid Interpretation Code 70-99 [facility] Comment on above: Order Comment: Order Date: 04/03/25 Order Info: 785-11 - CMP Order Info: - LIPID Order Info: [id number] - TSH Order Info: 3024-05 - T4F Result Comment: Crit ical Result(s) Called at: 0303 by: MADDY VILLALPANDO TO RN LSPARR. ??Results read back by same. Performed By: #### L 501.9520, L500.4100 #### [facility] [address] [place], [address] Potassium [Moles/Vol] 4.2 mmol/L Normal 3.3-5.1 [facility] Comment on above: Order Comment: Order Date: 04/03/25 Order Info: 785-11 - CMP Order Info: - LIPID Order Info: [id number] - TSH Order Info: 3024-05 - T4F Result Comment: Hemo lysis present, Results??could be affected. ?? Performed By: #### L 501.9520, L500.4100 #### [facility] [address] [place], [address] Sodium [Moles/Vol] 138 mmol/L Normal 133-145 [facility] Comment on above: Order Comment: Order Date: 04/03/25 Order Info: 785-11 - CMP Order Info: - LIPID Order Info: [id number] - TSH Order Info: 7 - T4F Performed By: #### L 501.9520, L500.4100 #### [facility] [address] [place], [address] Urea nitrogen [Mass/Vol] 19 mg/dL Normal 4-19 [facility] Comment on above: Order Comment: Order Date: 04/03/25 Order Info: 0786-1 - CMP Order Info: [id number] - LIPID Order Info: 3016-3 - TSH Order Info: 3024-7 - T4F Performed By: #### L 501.9520, L500.4100 #### [facility] [address] [place], [address] BUN Normal 4-19 [facility] Comment on above: Result Comment: This specimen has been REJECTED due to Laboratory criteria: Hemolyzed. LSPARR has been notified of need of recollection. 05/02/25155 Jeffrey R Denton Performed By: #### L 500.4050 #### [facility] [address] [place], [address] BUN/CRE Normal 10-20 [facility] Comment on above: Result Comment: This specimen has been REJECTED due to Laboratory criteria: Hemolyzed. LSPARR has been notified of need of recollection. 05/02/25155 Jeffrey R Denton Performed By: #### L 500.4050 #### [facility] [address] [place], [address] Calcium Normal 7.6-11.0 [facility] Comment on above: Result Comment: This specimen has been REJECTED due to Laboratory criteria: Hemolyzed. LSPARR has been notified of need of recollection. 05/02/25155 Jeffrey R Denton Performed By: #### L 500.4050 #### [facility] [address] [place], [address] CL Normal 98-108 [facility] Comment on above: Result Comment: This specimen has been REJECTED due to Laboratory criteria: Hemolyzed. LSPARR has been notified of need of recollection. 05/02/25155 Jeffrey R Denton Performed By: #### L 500.4050 #### [facility] [address] [place], [address] CO2 Normal 21.0-32.0 [facility] Comment on above: Result Comment: This specimen has been REJECTED due to Laboratory criteria: Hemolyzed. LSPARR has been notified of need of recollection. 05/02/25155 Jeffrey R Denton Performed By: #### L 500.4050 #### [facility] [address] [place], [address] CREAT,SERUM Normal 0.70-1.20 [facility] Comment on above: Result Comment: This specimen has been REJECTED due to Laboratory criteria: Hemolyzed. LSPARR has been notified of need of recollection. 05/02/25155 Jeffrey R Denton Performed By: #### L 500.4050 #### [facility] [address] [place], [address] eGFR Normal >60 [facility] Comment on above: Result Comment: This specimen has been REJECTED due to Laboratory criteria: Hemolyzed. LSPARR has been notified of need of recollection. 05/02/25155 Jeffrey R Denton Performed By: #### L 500.4050 #### [facility] [address] [place], [address] GAP Normal 5-15 [facility] Comment on above: Result Comment: This specimen has been REJECTED due to Laboratory criteria: Hemolyzed. LSPARR has been notified of need of recollection. 05/02/25155 Jeffrey R Denton Performed By: #### L 500.4050 #### [facility] [address] [place], [address] GLU Normal 70-99 [facility] Comment on above: Result Comment: This specimen has been REJECTED due to Laboratory criteria: Hemolyzed. LSPARR has been notified of need of recollection. 05/02/25 015 Jeffrey R Denton Performed By: #### L 500.4050 #### [facility] [address] [place], [address] Potassium Normal 3.3-5.1 [facility] Comment on above: Result Comment: This specimen has been REJECTED due to Laboratory criteria: Hemolyzed. LSPARR has been notified of need of recollection. 05/02/25155 Jeffrey R Denton Performed By: #### L 500.4050 #### [facility] [address] [place], [address] Basic Metabolic Profile (BMP) Normal 133-145 [facility] Comment on above: Result Comment: This specimen has been REJECTED due to Laboratory criteria: Hemolyzed. LSPARR has been notified of need of recollection. 05/02/25155 Jeffrey R Denton Performed By: #### L 500.4050 #### [facility] [address] [place], [address] Basophil percentageOrdered B y: Narayan Jonah on 05-02-2025 Basophils/100 WBC (Bld) 0.5 % Normal 0-1 [facility] Comment on above: Performed By: #### L 502.0250 #### [facility] [address] [place], [address] Bedside Glucoseon 05-02-2025 FINGERSTICK GLU 82 mg/dL Normal 74-106 [facility] Comment on above: Result Comment: CHRIS GEMENT OF PATIENT CARE PER NURSING PROTOCOL Performed By: #### L 502.0250 #### [facility] [address] [place], [address] FINGERSTICK GLU 123 mg/dL High 74-106 [facility] Comment on above: Result Comment: CHRIS GEMENT OF PATIENT CARE PER NURSING PROTOCOL Performed By: #### L 502.0250 #### [facility] [address] [place], [address] FINGERSTICK GLU 148 mg/dL High 74-106 [facility] Comment on above: Result Comment: CHRIS GEMENT OF PATIENT CARE PER NURSING PROTOCOL Performed By: #### L 501.080 #### [facility] [address] [place], [address] FINGERSTICK GLU 54 mg/dL Low 74-106 [facility] Comment on above: Result Comment: Snac k Given MANAGEMENT OF PATIENT CARE PER NURSING PROTOCOL Performed By: #### L 501.080 #### [facility] [address] [place], [address] FINGERSTICK GLU 78 mg/dL Normal 74-106 [facility] Comment on above: Result Comment: CHRIS GEMENT OF PATIENT CARE PER NURSING PROTOCOL Performed By: #### L 501.080 #### [facility] [address] [place], [address] Bilirubin Test strip Ql (U)O rdered By: Narayan Mckenzie on 05-02-2025 Bilirubin Ql (U) Negative Negative [facility] Bilirubin directOrdered By: Narayan Mckenzie on 05-02-2025 Bilirubin.direct [Mass/Vol] mg/dL 0.00-0.30 [facility] Comment on above: Hemolysis present, R esults could be affected. Bilirubin, totalOrdered By: Narayan Mckenzie on 05-02-2025 Bilirubin [Mass/Vol] mg/dL 0.00-1.30 [facility] Brain/Head without Contrasto n 05-02-2025 Brain/Head without Contrast [facility] [address] [place] [address] Brain/Head without Contrast MR#: [id number] Acct: [id number] Name: DANNY HEATH Rep #: [id number] : 1980 M 44 From: Sander Baird MD PCP: Dr. Denise Reyes MD Status: REG ER Study: Brain/Head without Contrast Date of Exam: 04/06 06/29 Exam# [id number] Ordering Dr: Narayan Mckenzie DO PROCEDURE: BRAIN/HEAD WITHOUT CONTRAST 05/02/2025 REASON FOR EXAM: SLURRED SPEECH TECHNIQUE: BRAIN/HEAD WITHOUT CONTRAST Coronal and Sagittal reconstruction series were provided. One or more dose reduction techniques were used (e.g., Automated exposure control, adjustment of the mA and/or kV according to patient size, use of iterative reconstruction technique. RADIATION DOSE SUMMARY: CTDlvol: 45 mGy DLP: 779 mGycm COMPARISON: No FINDINGS: Minimal white matter change. No atrophy. No definite acute abnormal brain densities. No intracranial hemorrhage. No hydrocephalus 6 or midline shift. No acute scalp or skull pathology. Left maxillary sinus opacification. CT/Brain/Head without Contrast IMPRESSION: No acute intracranial findings. Reading Location: [place] [address] CC: Dr. Denise Reyes MD; Dr. Narayan Mckenzie DO Cold Strip Roller: Signed Normal [facility] CBC W/Diff, Automatedon 04-06 Absolute Lymph 3.49 X10 3/uL Normal 0.83-4.51 [facility] Comment on above: Performed By: #### L 502.0250 #### [facility] [address] [facility] [address] Absolute Neut 7.9 X10 3/uL High 2.0-7.7 [facility] Comment on above: Performed By: #### L 502.0250 #### [facility] [address] [facility] [address] IG% 0.400 Normal 0.0-0.9 [facility] Comment on above: Result Comment: IG% - Immature Granulocytes (promyelocytes, myelocytes and metamyelocytes) > 1% indicates that a LEFT SHIFT is Present. Performed By: #### L 502.0250 #### [facility] [address] [facility] [address] Lymphocytes/100 WBC (Bld) 26.3 % Normal 19-41 [facility] Comment on above: Performed By: #### L 502.0250 #### [facility] [address] [place] [id number] Nucleated RBC (Bld) [#/Vol] 0 10*3/uL Normal 0-5 [facility] Comment on above: Performed By: #### L 502.0250 #### [facility] [address] [place], [address] RDW SD 45.6 fl High 35.1-43.9 [facility] Comment on above: Performed By: #### L 502.0250 #### [facility] [address] [place], [address] Carbon dioxide, total [Moles /volume] in Central venous bloodOrdered By: Narayan Mckenzie on 05-02-2025 CO2 [Moles/Vol] 21.4 mmol/L 21.0-32.0 [facility] Chest 1 View (Portable)on Chest 1 View (Portable) [facility] Services [address] [place] [address] Chest 1 View (Portable) MR#: [id number] Acct: [id number] Name: DANNY HEATH Rep #: [id number] : 1980 M 44 From: Sander Baird MD PCP: Dr. Denise Reyes MD Status: REG ER Study: Chest 1 View (Portable) Date of Exam: 05/02/25 Exam# [id number] Ordering Dr: Narayan Mckenzie DO PROCEDURE: CHEST 1 VIEW (PORTABLE) 05/02/2025 REASON FOR EXAM: WEAKNESS TECHNIQUE: Frontal view of the chest. COMPARISON: No FINDINGS: Normal heart size. Well inflated lungs. No consolidation, effusion, or pneumothorax. RAD/Chest 1 View (Portable) IMPRESSION: No acute findings Reading Location: [facility] CC: Dr. Denise Reyes MD; Dr. Narayan Mckenzie DO Cold Strip Roller: Signed Normal [facility] Chloride assayOrdered By: Charlene Mckenzie on 05-02-2025 Chloride [Moles/Vol] 105 mmol/L 98-108 [facility] Emergency Department Summary on 05-02-2025 Emergency Department Summary [facility] Medical Records Department [address] [place] [address] Emergency Department Summary 05/02/25 MR#: [id number] Acct: [id number] Name: DANNY HEATH Rep #: [id number] : 1980 44 From: Narayan Mckenzie DO PCP: Dr. Denise Reyes MD Status:DEP ER Location: ED HPI History of Present Illness Chief Complaint: Overdose PFSH [facility] Medical History Bipolar disorder Contact dermatitis due to poison los Dextromethorphan use disorder, mild, abuse Diabetes Home Medications ???Medication ???Instructions ???Recorded ???Last Taken ???Type cholecalciferol (vitamin D3) 50 50 mcg PO DAILY 12/24/23 Unknown H istory mcg (2,000 unit) capsule flash glucose scanning reader #1 ea 12/24/23 Unknown Rx (FreeStyle Aniya 2 [place]) lithium carbonate 450 mg 450 mg PO DAILY 30 days #60 tabs 0 01/31/24 Unknown History tablet,extended release lurasidone 40 mg tablet (Latuda) 60 mg PO DAILY 01/31/24 Unknown Hi story melatonin 5 mg tablet 5 mg PO HS 01/31/24 Unknown Histor y BD Ultra-Fine Hilary Pen Needle 32 #100 ea 03/24/24 Unknown Rx gauge x 5/32" (pen needle, diabetic) flash glucose sensor (FreeStyle #6 ea 05/15/24 Unknown Rx Aniya 2 Sensor kit) semaglutide 1 mg/dose (4 mg/3 mL) 1 mg (0.75 mL) subcut QWEEK #9 mL 05/15/24 Unknown Rx subcutaneous pen injector (Ozempic) metformin 1,000 mg tablet 1,000 mg PO BIDWMEAL #60 tabs 07/07 01/26 Unknown Rx insulin degludec 100 unit/mL (3 30 unit subcut DAILY 05/02/25 Unkn own History mL) subcutaneous pen (Tresiba FlexTouch U-100 insulin) insulin lispro 100 unit/mL 1 sliding scale dose subcut PRN Unknown History subcutaneous pen PRN hyperglycemia levothyroxine 200 mcg tablet 175 mcg PO DAILY 05/02/25 Unknown History rosuvastatin 5 mg tablet 40 mg PO DAILY 05/02/25 Unknown Hi story Allergy/AdvReac Type Severity Reaction Status Date / Time No Known Allergies Allergy Verified 05/02/25 00:06 Family History Other Alcohol abuse Anemia Arthritis Diabetes H/O transfusion of whole blood Heart disease High cholesterol Hypertension Mental disorder Myocardial infarction Thyroid disorder Social History (Updated 12/19/24 @ 21:45 by Macy Quigley) household members: family housing: house Smoking Status: Current every day smoker tobacco type: cigars alcohol intake: never substance use type: does not use what type of physical activity do you participate in: walking frequency: daily EXAM Physical Exam Const Vital Signs: 05/01/25 23:57 05/02/25 01:01 05/02/25 02:00 Temperature 98.6 F Temperature Source Oral Pulse Rate 100 90 84 Respiratory Rate 18 8 L 14 Blood Pressure 147/106 H 144/95 H 141/88 H Blood Pressure Mean 119 111 105 Pulse Ox 97 98 98 Oxygen Delivery Method Room Air Room Air Room Air 05/02/25 03:28 05/02/25 04:07 05/02/25 05:20 Temperature Temperature Source Pulse Rate 88 Respiratory Rate 16 Blood Pressure 132/93 H 131/88 H 134/89 H Blood Pressure Mean 106 102 104 Pulse Ox 97 Oxygen Delivery Method MDM MDM MDM Narrative Medical decision making narrative: HISTORY OF PRESENT ILLNESS: Chief complaint: Accidental overdose 44year-old male history of bipolar disorder, elevated liver enzymes, type 2 diabetes presents with accidental overdose. Patient denies suicidal ideation but notes he usually consumes 3 to 6 boxes of cough and cold medicine per day. He notes at 730 p.m. he consumed 6 boxes of cough and cold medicine. He noted issues with sweating, high blood sugar. He notes he may be addicted to the medication. Patient denies chest pain, shortness of breath, abdominal pain, nausea or vomiting. Per the patient's sister/guardian she states he took an additional dose of his short acting insulin as well. He notes he did not take additional lithium today. REVIEW OF SYSTEMS: Pertinent positives: Slurred speech, sweating, hyperglycemia Pertinent negatives: Headache, chest pain, shortness of breath otherwise as per HPI PHYSICAL EXAM: Nursing triage notes reviewed, Vital signs reviewed Constitutional: please see mdm HENT: MMM Eyes: Pupils equal round and reactive to light, Extraocular muscles intact Neck: No stridor, no JVD, full neck ROM Lungs: Clear to auscultation, No wheezing or rales. No increased work of breathing, no conversational dyspnea, no accessory muscle use, no nasal flaring. No respiratory distress noted Heart: Regular rate and rhythm, No murmurs, No rubs and No gallops, 2+ distal pulses (radial, femoral, posterior tibial) in all extremities Abdomen: Soft, there is no tenderness, rigidity, rebound or guardin (more content not included)... Normal [facility] Eosinophil percentageOrdered By: Narayan Mckenzie on 05-02-2025 Eosinophils/100 WBC (Bld) 5.3 % High 0-5 [facility] Comment on above: Performed By: #### L 502.0250 #### [facility] [address] [place], [place], [id number] Erythrocyte distribution wid th ratioOrdered By: Narayan Mckenzie on 05-02-2025 Erythrocyte distribution width (RBC) [Ratio] 13.9 % Normal 11.6-14.6 [facility] Comment on above: Performed By: #### L 502.0250 #### [facility] [address] [place], [address] Erythrocyte distribution wid th standard deviationOrdered By: Narayan Mckenzie on 05-02-2025 Erythrocyte distribution width (RBC) [Ratio] 45.6 fl High 35.1-43.9 [facility] Glomerular filtration rate ( GFR) estimation/1.73 sq m using serum, plasma, or whole bOrdered By: Narayan Mckenzie on 05-02-2025 GFR/1.73 sq M.predicted among non-blacks MDRD (S/P/Bld) [Vol rate/Area] 109 mL/min/{1.73_m2} >60 [facility] Comment on above: mL/min/1.73m2 CKD-EP I Creatinine Equation (2020) [facility] deOrdered By: Narayan Mckenzie on 05-02-2025 Glucose [Mass/Vol] 82 mg/dL 74-106 [facility] Comment on above: MANAGEMENT OF PATIEN T CARE PER NURSING PROTOCOL Hemoglobin measurementOrdere d By: Narayan Mckenzie on 05-02-2025 Hemoglobin (Bld) [Mass/Vol] 13.2 g/dL Normal 13.0-16.5 [facility] Comment on above: Performed By: #### L 502.0250 #### [facility] [address] [place], [address] Immature granulocytes/100 WB C Auto (Bld)Ordered By: Narayan Mckenzie on 05-02-2025 Immature granulocytes/100 WBC (Bld) 0.400 % 0.0-0.9 [facility] Comment on above: IG% - Immature Granu locytes (promyelocytes, myelocytes and metamyelocytes) > 1% indicates that a LEFT SHIFT is Present. Ketones Test strip Ql (U)Ord ered By: Narayan Mckenzie on 05-02-2025 Ketones Ql (U) Negative Negative [facility] - Chemistry and C hemistry - challengeOrdered By: Narayan Mckenzie on 05-02-2025 AST [Catalytic activity/Vol] 128 U/L High <38 [facility] Comment on above: Hemolysis present, R esults could be affected. Lipaseon 05-02-2025 Lipase [Catalytic activity/Vol] 73 U/L Normal 13-75 [facility] Comment on above: Order Comment: This specimen has been REJECTED due to Laboratory criteria:Hemolyzed.LSPARR has been notified of need of recollection.05/02/25155 Jeffrey Denton Result Comment: This specimen has been REJECTED due to Laboratory criteria: Hemolyzed. LSPARR has been notified of need of recollection. 05/02/25155 Jeffreytatyana Denton Please note: LIPASE revised reference range effective 23. New Lipase methodology. Expected to produce lower values than the previous assay method. NEW Reference Range: 13 - 75 U/L Performed By: #### L 500.4050 #### [facility] [address] [place], [place], [address] Lipase measurementOrdered By : Narayan Mckenzie on 05-02-2025 Lipase [Catalytic activity/Vol] 68 U/L Normal 13-75 [facility] Comment on above: Please note:LIPASE r evised reference range effective 23. New Lipase methodology. Expected to produce lower values than the previous assay method. NEW Reference Range: 13 - 75 U/L Order Comment: Order Date: 04/03/25 Order Info: 0786-1 - CMP Order Info: [id number] - LIPID Order Info: [id number] - TSH Order Info: 3027 - T4F Result Comment: Plea note: LIPASE revised reference range effective 23. New Lipase methodology. Expected to produce lower values than the previous assay method. NEW Reference Range: 13 - 75 U/L Performed By: #### L 501.9520, L500.4100 #### [facility] [address] [place], [address] Lithiumon 05-02-2025 LI 1.44 mmol/L Invalid Interpretation Code 0.60-1.20 [facility] Comment on above: Result Comment: Crit ical Result(s) Called at: 0320 by:??MADDY VILLALPANDO TO ANDIE JORDAN. Results read back by same. Performed By: #### L 502.0250 #### [facility] [address] [place], [address] Liver Profileon 05-02-2025 Albumin [Mass/Vol] 4.0 g/dL Normal 3.5-5.0 [facility] Comment on above: Order Comment: Order Date: 04/03/25 Order Info: 0786-1 - CMP Order Info: [id number] - LIPID Order Info: 3016-3 - TSH Order Info: 3024-7 - T4F Performed By: #### L 501.9520, L500.4100 #### [facility] [address] [place], [address] ALK PHOS 225 U/L High 40-129 [facility] Comment on above: Order Comment: Order Date: 04/03/25 Order Info: 86-1 - CMP Order Info: - LIPID Order Info: 3 - TSH Order Info: 7 - T4F Performed By: #### L 501.9520, L500.4100 #### [facility] [address] [place], [address] ALT [Catalytic activity/Vol] 203 U/L High <=46 [facility] Comment on above: Order Comment: Order Date: 04/03/25 Order Info: 785-1 - CMP Order Info: - LIPID Order Info: 3016-01 - TSH Order Info: 3024-05 - T4F Performed By: #### L 501.9520, L500.4100 #### [facility] [address] [place], [address] AST [Catalytic activity/Vol] 128 U/L High <=37 [facility] Comment on above: Order Comment: Order Date: 04/03/25 Order Info: 785- - CMP Order Info: - LIPID Order Info: 3 - TSH Order Info: 3024-05 - T4F Result Comment: Hemo lysis present, Results??could be affected. ?? Performed By: #### L 501.9520, L500.4100 #### [facility] [address] [place], [address] D BILI < 0.08 Normal 0.00-0.30 [facility] Comment on above: Order Comment: Order Date: 04/03/25 Order Info: 785-1 - CMP Order Info: [id number] - LIPID Order Info: 3 - TSH Order Info: 7 - T4F Result Comment: Hemo lysis present, Results??could be affected. ?? Performed By: #### L 501.9520, L500.4100 #### [facility] [address] [place], [address] Globulin (S) [Mass/Vol] 2.7 g/dL Normal 2.2-4.2 [facility] Comment on above: Order Comment: Order Date: 04/03/25 Order Info: 0786-1 - CMP Order Info: [id number] - LIPID Order Info: 3016-3 - TSH Order Info: 3024-7 - T4F Performed By: #### L 501.9520, L500.4100 #### [facility] [address] [place], [address] T BILI < 0.15 Normal 0.00-1.30 [facility] Comment on above: Order Comment: Order Date: 04/03/25 Order Info: 0786-1 - CMP Order Info: [id number] - LIPID Order Info: 3016-3 - TSH Order Info: 7 - T4F Performed By: #### L 501.9520, L500.4100 #### [facility] [address] [place], [place], [address] T PROT 6.7 g/dL Normal 5.9-8.4 [facility] Comment on above: Order Comment: Order Date: 04/03/25 Order Info: 0786-1 - CMP Order Info: [id number] - LIPID Order Info: 3016-3 - TSH Order Info: 30247 - T4F Performed By: #### L 501.9520, L500.4100 #### [facility] [address] [place], [address] ALB Normal 3.5-5.0 [facility] Comment on above: Result Comment: This specimen has been REJECTED due to Laboratory criteria: Hemolyzed. LSPARR has been notified of need of recollection. 05/02/25 Aminta Denton Performed By: #### L 500.4050 #### [facility] [address] [place], [address] ALK PHOS Normal 40-129 [facility] Comment on above: Result Comment: This specimen has been REJECTED due to Laboratory criteria: Hemolyzed. LSPARR has been notified of need of recollection. 05/02/25155 Jeffrey R Denton Performed By: #### L 500.4050 #### [facility] [address] [place], [address] ALT Normal <=46 [facility] Comment on above: Result Comment: This specimen has been REJECTED due to Laboratory criteria: Hemolyzed. LSPARR has been notified of need of recollection. 05/02/25155 Jeffrey R Denton Performed By: #### L 500.4050 #### [facility] [address] [facility] [address] AST Normal <=37 [facility] Comment on above: Result Comment: This specimen has been REJECTED due to Laboratory criteria: Hemolyzed. LSPARR has been notified of need of recollection. 05/02/25155 Jeffrey R Denton Performed By: #### L 500.4050 #### [facility] [address] [facility] [address] D BILI Normal 0.00-0.30 [facility] Comment on above: Result Comment: This specimen has been REJECTED due to Laboratory criteria: Hemolyzed. LSPARR has been notified of need of recollection. 05/02/25155 Jeffrey R Denton Performed By: #### L 500.4050 #### [facility] [address] [facility] [address] T BILI Normal 0.00-1.30 [facility] Comment on above: Result Comment: This specimen has been REJECTED due to Laboratory criteria: Hemolyzed. LSPARR has been notified of need of recollection. 05/02/25155 Jeffrey R Denton Performed By: #### L 500.4050 #### [facility] [address] [place], [address] T PROT Normal 5.9-8.4 [facility] Comment on above: Result Comment: This specimen has been REJECTED due to Laboratory criteria: Hemolyzed. LSPARR has been notified of need of recollection. 05/02/25 0156 Jeffrey Yo Ednton Performed By: #### L 500.4050 #### [facility] [address] [place], [address] MCV (mean corpuscular volume ) determinationOrdered By: Narayan Mckenzie on 05-02-2025 MCV (RBC) [Entitic vol] 90.4 fL Normal 80-94 [facility] Comment on above: Performed By: #### L 502.0250 #### [facility] [address] [place], [address] Mean corpuscular hemoglobin (MCH) determinationOrdered By: Narayan Mckenzie on 05-02-2025 MCH (RBC) [Entitic mass] 29.3 pg Normal 27.0-32.0 [facility] Comment on above: Performed By: #### L 502.0250 #### [facility] [address] [place], [address] Mean corpuscular hemoglobin concentration (MCHC) determinationOrdered By: Narayan Mckenzie on 05-02-2025 MCHC (RBC) [Mass/Vol] 32.4 g/dL Normal 32-36 [facility] Comment on above: Performed By: #### L 502.0250 #### [facility] [address] [place], [address] Mean platelet volume determi nationOrdered By: Narayan Mckenzie on 05-02-2025 Platelet mean volume (Bld) [Entitic vol] 9.0 fL Normal 6.2-12.0 [facility] Comment on above: Performed By: #### L 502.0250 #### [facility] [address] [place], [address] Microscopic analysis of urin e for red blood cells (RBC)Ordered By: Narayan Mckenzie on 05-02-2025 Microscopic analysis of urine for red blood cells (RBC) 0 SEEN /hpf 0-5 [facility] Monocyte percentageOrdered B y: Narayan Mckenzie on 05-02-2025 Monocytes/100 WBC (Bld) 8.1 % Normal 0-10 [facility] Comment on above: Performed By: #### L 502.0250 #### [facility] [address] [place], [place], [id number] Mucus LM Ql (Urine sed)Order ed By: Narayan Mckenzie on 05-02-2025 Mucus Ql (Urine sed) 0 SEEN /hpf [facility] Neutrophil percentageOrdered By: Narayan Mckenzie on 05-02-2025 Neutrophils/100 WBC (Bld) 59.4 % Normal 47-70 [facility] Comment on above: Performed By: #### L 502.0250 #### [facility] [address] [place], [address] Nitrite Test strip Ql (U)Ord ered By: Narayan Mckenzie on 05-02-2025 Nitrite Ql (U) Negative Negative [facility] No Panel InformationOrdered By: Narayan Mckenzie on 05-02-2025 Urine Buprenorphine Qualitative Negative < 200 ng/mL [facility] Urine Oxycodone Screen Negative < 100 ng/mL [facility] Nucleated red blood cell per centageOrdered By: Narayan Mckenzie on 05-02-2025 Nucleated RBC/100 WBC (Bld) [Ratio] 0 % 0-5 [facility] Platelet countOrdered By: Charlene Mckenzie on 05-02-2025 Platelets (Bld) [#/Vol] 407 10*3/uL Normal 150-450 [facility] Comment on above: Performed By: #### L 502.0250 #### [facility] [address] [place], [place], [id number] Potassium measurement (mass/ volume)Ordered By: Narayan Mckenzie on 05-02-2025 Potassium (Unsp spec) [Mass/Vol] 4.2 mmol/L 3.3-5.1 [facility] Comment on above: Hemolysis present, R esults could be affected. Protein Test strip Ql (U)Ord ered By: Narayan Mckenzie on 05-02-2025 Protein Ql (U) 100 mg/dl High Negative [facility] Quantitative urine opiates m easurementOrdered By: Narayan Mckenzie on 05-02-2025 Opiates Ql (U) Negative < 300 ng/mL [facility] Salicylateon 05-02-2025 SALICYLATE < 0.5 Low 2.8-20.0 [facility] Comment on above: Result Comment: Sali cylate concentrations > 30 mg/dL are potentially toxic. Salicylate concentrations exceeding 60 mg/dL can be lethal. Performed By: #### L 500.4050 #### [facility] [address] [place], [address] Screening urine fentanyl luciana surementOrdered By: Narayan Mckenzie on 05-02-2025 fentaNYL Screen Ql (U) Positive [facility] Comment on above: If confirmation test ing is needed, a separate order will be required to send out testing to the reference laboratory. Serum creatinine measurement (mass/volume)Ordered By: Narayan Mckenzie on 05-02-2025 Creatinine [Mass/Vol] 0.91 mg/dL 0.70-1.20 [facility] Serum globulin measurementOr dered By: Narayan Mckenzie on 05-02-2025 Globulin (S) [Mass/Vol] 2.7 g/dL 2.2-4.2 [facility] Serum glucose measurement (m ass/volume)Ordered By: Narayan Mckenzie on 05-02-2025 Glucose [Mass/Vol] 41 mg/dL Low 70-99 [facility] Comment on above: Critical Result(s) C alled at: 0303 by: MADDY VILLALPANDO TO RN LSPARR. Results read back by same. Serum or plasma acetaminophe n measurement (mass/volume)Ordered By: Narayan Mckenzie on 05-02-2025 Acetaminophen [Mass/Vol] ug/mL Low 8.0-19.0 [facility] Comment on above: Acetaminophen concen trations > 200 ug/mL four hours after ingestion, > 100 ug/mL eight hours after ingestion, and > 50 ug/mL 12 hours after ingestion are potentially toxic. Result Comment: Acet aminophen concentrations > 200 ug/mL four hours after ingestion, > 100 ug/mL eight hours after ingestion, and > 50 ug/mL 12 hours after ingestion are potentially toxic. Performed By: #### L 500.4050 #### [facility] [place], [address] Serum or plasma alanine lindsey otransferase (ALT) measurementOrdered By: Narayan Mckenzie on 05-02-2025 ALT [Catalytic activity/Vol] 203 U/L High <47 [facility] Serum or plasma albumin kain urement (mass/volume)Ordered By: Narayan Mckenzie on 05-02-2025 Albumin [Mass/Vol] 4.0 g/dL 3.5-5.0 [facility] Serum or plasma alkaline buffy sphatase measurementOrdered By: aNrayan Mckenize on 05-02-2025 ALP [Catalytic activity/Vol] 225 U/L High 40-129 [facility] Serum or plasma calcium kain urement (mass/volume)Ordered By: Narayan Mckenzie on 05-02-2025 Calcium [Mass/Vol] 9.8 mg/dL 7.6-11.0 [facility] Serum or plasma ethanol kain urement (mass/volume)Ordered By: Narayan Mckenzie on 05-02-2025 Ethanol [Mass/Vol] mg/dL <10.1 [facility] Comment on above: Hemolysis Present, R esults may be affected.This test is for medical purposes only. The legal definition of intoxication varies according to local law. Serum or plasma salicylates measurement (mass/volume)Ordered By: Narayan Mckenzie on 05-02-2025 Salicylates [Mass/Vol] mg/dL Low 2.8-20.0 [facility] Comment on above: Salicylate concentra tions > 30 mg/dL are potentially toxic.Salicylate concentrations exceeding 60 mg/dL can be lethal. Serum or plasma urea nitroge n measurement (mass/volume)Ordered By: Narayan Mckenzie on 05-02-2025 Urea nitrogen [Mass/Vol] 19 mg/dL 4-19 [facility] Sodium levelOrdered By: Natasha Duckworths on 05-02-2025 Sodium [Moles/Vol] 138 mmol/L 133-145 [facility] Squamous epithelial cells de tection in urine sediment by light microscopyOrdered By: Narayan Jonah on 05-02-2025 Epithelial cells.squamous LM Ql (Urine sed) 0 SEEN /hpf 0-5 [facility] Total proteinOrdered By: Harish morales Jonah on 05-02-2025 Protein [Mass/Vol] 6.7 g/dL 5.9-8.4 [facility] Urinalysis, Completeon 05-02 Clarity (U) Clear Normal Clear [facility] Comment on above: Order Comment: Order Date: 12/19/24 Order Info: 0779-1 - MIACRE Order Date: 04/03/25 Order Info: [id number] - MIALB Performed By: #### L 502.0250 #### [facility] [address] [place], [place], [id number] Color (U) Yellow Normal Yellow [facility] Comment on above: Order Comment: Order Date: 12/19/24 Order Info: [id number] - MIACRE Order Date: 04/03/25 Order Info: [id number] - MIALB Performed By: #### L 502.0250 #### [facility] [address] [place], [address] BILIRUBIN URINE Negative Normal Negative [facility] Comment on above: Order Comment: Order Date: 12/19/24 Order Info: [id number] - MIACRE Order Date: 04/03/25 Order Info: [id number] - MIALB Performed By: #### L 502.0250 #### [facility] [address] [place], [address] GLUCOSE, UR 1000 mg/dl Abnormal Normal [facility] Comment on above: Order Comment: Order Date: 12/19/24 Order Info: [id number] - MIACRE Order Date: 04/03/25 Order Info: [id number] - MIALB Performed By: #### L 502.0250 #### [facility] [address] [place], [address] KETONE UR Negative Normal Negative [facility] Comment on above: Order Comment: Order Date: 12/19/24 Order Info: [id number] - MIACRE Order Date: 04/03/25 Order Info: [id number] - MIALB Performed By: #### L 502.0250 #### [facility] [address] [place], [address] LEUK ESTERASE Negative Normal Negative [facility] Comment on above: Order Comment: Order Date: 12/19/24 Order Info: [id number] - MIACRE Order Date: 04/03/25 Order Info: [id number] - MIALB Performed By: #### L 502.0250 #### [facility] [address] [place], [address] Nitrite Ql (U) Negative Normal Negative [facility] Comment on above: Order Comment: Order Date: 12/19/24 Order Info: [id number] - MIACRE Order Date: 04/03/25 Order Info: [id number] - MIALB Performed By: #### L 502.0250 #### [facility] [address] [place], [address] OCCULT BLOOD-UR Negative Normal Negative [facility] Comment on above: Order Comment: Order Date: 12/19/24 Order Info: [id number] - MIACRE Order Date: 04/03/25 Order Info: [id number] - MIALB Performed By: #### L 502.0250 #### [facility] [address] [place], [address] pH UR 6.0 Normal 5.0 - 8.0 [facility] Comment on above: Order Comment: Order Date: 12/19/24 Order Info: 0779-1 - MIACRE Order Date: 04/03/25 Order Info: [id number] - MIALB Performed By: #### L 502.0250 #### [facility] [address] [place], [address] PROT DIPSTX 100 mg/dl Abnormal Negative [facility] Comment on above: Order Comment: Order Date: 12/19/24 Order Info: 0779-1 - MIACRE Order Date: 04/03/25 Order Info: [id number] - MIALB Performed By: #### L 502.0250 #### [facility] [address] [place], [address] SP.GR. DIPSTX 1.020 Normal 1.002-1.030 [facility] Comment on above: Order Comment: Order Date: 12/19/24 Order Info: 0779-1 - MIACRE Order Date: 04/03/25 Order Info: [id number] - MIALB Performed By: #### L 502.0250 #### [facility] [address] [place], [address] UROBILI Normal Normal Normal [facility] Comment on above: Order Comment: Order Date: 12/19/24 Order Info: [id number]- - MIACRE Order Date: 04/03/25 Order Info: [id number] - MIALB Performed By: #### L 502.0250 #### [facility] [address] [place], [address] BACTERIA 0 SEEN Normal None Seen [facility] Comment on above: Order Comment: Order Date: 12/19/24 Order Info: 0779-1 - MIACRE Order Date: 04/03/25 Order Info: [id number] - MIALB Performed By: #### L 502.0250 #### [facility] [address] [place], [address] EPI,SQUAMOUS 0 SEEN Normal 0-5 [facility] Comment on above: Order Comment: Order Date: 12/19/24 Order Info: 0779-1 - MIACRE Order Date: 04/03/25 Order Info: [id number] - MIALB Performed By: #### L 502.0250 #### [facility] [address] [place], [address] Mucus Ql (Urine sed) 0 SEEN Normal [facility] Comment on above: Order Comment: Order Date: 12/19/24 Order Info: 0779-1 - MIACRE Order Date: 04/03/25 Order Info: [id number] - MIALB Performed By: #### L 502.0250 #### [facility] [address] [place], [address] RBC 0 SEEN Normal 0-5 [facility] Comment on above: Order Comment: Order Date: 12/19/24 Order Info: 0779-1 - MIACRE Order Date: 04/03/25 Order Info: [id number] - MIALB Performed By: #### L 502.0250 #### [facility] [address] [place], [address] WBC 0 SEEN Normal 0-5 [facility] Comment on above: Order Comment: Order Date: 12/19/24 Order Info: [id number] - MIACRE Order Date: 04/03/25 Order Info: [id number] - MIALB Performed By: #### L 502.0250 #### [facility] [address] [place], [address] Urine Drug Screen (VISTA)on 05-02-2025 AMPHETAMINES Negative Normal <1000 ng/mL [facility] Comment on above: Performed By: #### L 500.4050 #### [facility] [address] [place], [address] BARBITIURATES Negative Normal < 200 ng/mL [facility] Comment on above: Performed By: #### L 500.4050 #### [facility] [address] [place], [address] BENZODIAZIPINE Negative Normal < 200 ng/mL [facility] Comment on above: Performed By: #### L 500.4050 #### [facility] [address] [place], [address] BUP Ur Drug Scr Negative Normal < 200 ng/mL [facility] Comment on above: Performed By: #### L 500.4050 #### [facility] [address] [place], [address] COCAINE Negative Normal < 300 ng/mL [facility] Comment on above: Performed By: #### L 500.4050 #### [facility] [address] [facility] [address] Fentanyl Positive Normal [facility] Comment on above: Result Comment: If c onfirmation testing is needed, a separate order will be required to send out testing to the reference laboratory. Performed By: #### L 500.4050 #### [facility] [address] [facility] [address] METHADONE Negative Normal < 300 ng/mL [facility] Comment on above: Performed By: #### L 500.4050 #### [facility] [address] [place], [address] OPIATES Negative Normal < 300 ng/mL [facility] Comment on above: Performed By: #### L 500.4050 #### [facility] [address] [place], [address] OXYCODONE Negative Normal < 100 ng/mL [facility] Comment on above: Performed By: #### L 500.4050 #### [facility] [address] [place], [address] PCP Negative Normal < 25 ng/mL [facility] Comment on above: Performed By: #### L 500.4050 #### [facility] [address] [place], [address] THC Negative Normal < 50 ng/mL [facility] Comment on above: Performed By: #### L 500.4050 #### [facility] [place], [address] Urine benzodiazepine levelOr dered By: Narayan Mckenzie on 05-02-2025 Benzodiazepines Ql (U) Negative < 200 ng/mL [facility] Urine clarityOrdered By: Delmy Mckenzie on 05-02-2025 Clarity (U) Clear Clear [facility] Urine cocaine levelOrdered B y: Narayan Mckenzie on 05-02-2025 Cocaine Ql (U) Negative < 300 ng/mL [facility] Urine color determinationOrd ered By: Narayan Mckenzie on 05-02-2025 Color (U) Yellow Yellow [facility] Urine hqnfl-2-wkfkxtsjjzaeyh abinol (THC) measurementOrdered By: Narayan Mckenzie on 05-02-2025 Cannabinoids Screen Ql (U) Negative < 50 ng/mL [facility] Urine glucose detectionOrder ed By: Narayan Mckenzie on 05-02-2025 Glucose Ql (U) 1000 mg/dl High Normal [facility] Urine leukocyte esterase det ection by dipstickOrdered By: Narayan Mckenzie on 05-02-2025 Leukocyte esterase Test strip Ql (U) Negative Negative [facility] Urine pHOrdered By: Narayan alberto on 05-02-2025 pH (U) 6.0 [pH] 5.0 - 8.0 [facility] Urine phencyclidine (PCP) de tectionOrdered By: Narayan Mckenzie on 05-02-2025 Phencyclidine Ql (U) Negative < 25 ng/mL [facility] Urine sediment bacteria coun t by microscopy (number/high power field)Ordered By: Narayan Mckenzie on 05-02-2025 Bacteria LM.HPF (Urine sed) [#/Area] 0 /[HPF] None Seen [facility] Urine specific gravity measu rementOrdered By: Narayan Mckenzie on 05-02-2025 Specific gravity (U) [Rel density] 1.020 1.002-1.030 [facility] Urine urobilinogen measureme ntOrdered By: Narayan Mckenzie on 05-02-2025 Urobilinogen Ql (U) Normal mg/dl Normal [facility] White blood cell (WBC) count Ordered By: Narayan Mckenzie on 05-02-2025 WBC (Bld) [#/Vol] 13.3 10*3/uL High 4.4-11.0 [facility] Comment on above: Performed By: #### L 502.0250 #### [facility] [address] [place], [place], [id number] White blood cell countOrdere d By: Narayan Mckenzie on 05-02-2025 White blood cell count 0 SEEN /hpf 0-5 [facility] Microalb:Creat Ratio,Random URon 04-28-2025 MALB:CREAT 671.6 mg/g CRE Normal [facility] Comment on above: Order Comment: Order Date: 12/19/24 Order Info: [id number] - MIACRE Order Date: 04/03/25 Order Info: [id number] - MIALB Result Comment: AMENDED REPORT 04/28/25 1113 MALB:CREAT previously reported as: 6716.2 mg/g CRE Performed By: #### L 502.0250 #### [facility] [address] [place], [place], [address] Microalb:Creat Ratio,Random URon 04-23-2025 MALB:CREAT 3257.7 mg/g CRE Normal [facility] Comment on above: Order Comment: Order Date: 04/03/25 Order Info: [id number] - CMP Order Info: [id number] - LIPID Order Info: [id number] - TSH Order Info: [id number] - T4F Result Comment: AMENDED REPORT 04/23/25 0821 MALB:CREAT previously reported as: 92399.3 mg/g CRE Performed By: #### L 501.9520, L500.4100 #### [facility] [address] [place], [place], [address] Absolute lymphocyte countOrd ered By: Richard Harvey on 04-06-2025 Lymphocytes Auto (Unsp spec) [#/Vol] 2.95 10*3/uL 0.83-4.51 [facility] Absolute neutrophil countOrd ered By: Richard Harvey on 04-06-2025 Neutrophils (Bld) [#/Vol] 7.8 10*3/uL High 2.0-7.7 [facility] Anion gap in Serum or Plasma Ordered By: Richard Harvey on 04-06-2025 Anion gap [Moles/Vol] 13 mmol/L 5-15 [facility] Automated blood erythrocyte countOrdered By: Richard Harvey on 04-06-2025 RBC (Bld) [#/Vol] 5.43 10*6/uL Normal 4.6-6.2 [facility] Comment on above: Performed By: #### L 501.9520, L500.4100 #### [facility] [address] [place], [place], [address] Automated blood hematocrit ( percentage)Ordered By: Richard Harvey on 04-06-2025 Hematocrit (Bld) [Volume fraction] 49.1 % Normal 40-54 [facility] Comment on above: Performed By: #### L 501.9520, L500.4100 #### [facility] [address] [place], [address] Automated lymphocyte count a s percentage of total leukocytesOrdered By: Richardangelo Harvey on 04-06-2025 Lymphocytes/100 WBC Auto (Unsp spec) 22.7 % - [facility] BUN/creatinine ratioOrdered By: Richard Wes on 04-06-2025 Urea nitrogen/Creatinine [Mass ratio] 16.2 mg/mg - [facility] Basic Metabolic Profile (BMP )on 04-06-2025 BUN/CRE 16.2 RATIO Normal - [facility] Comment on above: Performed By: #### L 501.9520, L500.4100 #### [facility] [address] [place], [address] ECRCL 93.74 ml/min Normal 50-250 [facility] Comment on above: Performed By: #### L 501.9520, L500.4100 #### [facility] [address] [place], [address] GAP 13 Normal 5-15 [facility] Comment on above: Performed By: #### L 501.9520, L500.4100 #### [facility] [address] [place], [address] Potassium [Moles/Vol] 4.5 mmol/L Normal 3.3-5.1 [facility] Comment on above: Result Comment: Hemo lysis present, Results??could be affected. ?? Performed By: #### L 501.9520, L500.4100 #### [facility] [address] [place], [address] Basophil percentageOrdered B y: Richard Harvey on 04-06-2025 Basophils/100 WBC (Bld) 0.8 % Normal 0-1 [facility] Comment on above: Performed By: #### L 501.9520, L500.4100 #### [facility] [address] [place], [address] Bedside Glucoseon 04-06-2025 FINGERSTICK GLU 385 mg/dL High 74-106 [facility] Comment on above: Result Comment: CHRIS SANDERSON OF PATIENT CARE PER NURSING PROTOCOL Performed By: #### L 500.6366 #### [facility] [address] [place], [address] CBC W/Diff, Automatedon Absolute Lymph 2.95 X10 3/uL Normal 0.83-4.51 [facility] Comment on above: Performed By: #### L 501.9520, L500.4100 #### [facility] [address] [place], [address] Absolute Neut 7.8 X10 3/uL High 2.0-7.7 [facility] Comment on above: Performed By: #### L 501.9520, L500.4100 #### [facility] [address] [place], [address] IG% 0.500 Normal 0.0-0.9 [facility] Comment on above: Result Comment: IG% - Immature Granulocytes (promyelocytes, myelocytes and metamyelocytes) > 1% indicates that a LEFT SHIFT is Present. Performed By: #### L 501.9520, L500.4100 #### [facility] [address] [place], [address] Lymphocytes/100 WBC (Bld) 22.7 % Normal 19-41 [facility] Comment on above: Performed By: #### L 501.9520, L500.4100 #### [facility] [address] [place], [address] Nucleated RBC (Bld) [#/Vol] 0 10*3/uL Normal 0-5 [facility] Comment on above: Performed By: #### L 501.9520, L500.4100 #### [facility] [address] [place], [address] RDW SD 46.9 fl High 35.1-43.9 [facility] Comment on above: Performed By: #### L 501.9520, L500.4100 #### [facility] [address] [place], [address] Carbon dioxide, total [Moles /volume] in Central venous bloodOrdered By: Richard Harvey on 04-06-2025 CO2 [Moles/Vol] 26.1 mmol/L Normal 21.0-32.0 [facility] Comment on above: Performed By: #### L 501.9520, L500.4100 #### [facility] [address] [place], [place], [id number] Chloride assayOrdered By: Asif Harvey on 04-06-2025 Chloride [Moles/Vol] 92 mmol/L Low 98-108 [facility] Comment on above: Performed By: #### L 501.9520, L500.4100 #### [facility] [address] [place], [address] Eosinophil percentageOrdered By: Richard Harvey on 04-06-2025 Eosinophils/100 WBC (Bld) 7.2 % High 0-5 [facility] Comment on above: Performed By: #### L 501.9520, L500.4100 #### [facility] [address] [place] [place], [address] Erythrocyte distribution wid th ratioOrdered By: Richard Harvey on 04-06-2025 Erythrocyte distribution width (RBC) [Ratio] 14.2 % Normal 11.6-14.6 [facility] Comment on above: Performed By: #### L 501.9520, L500.4100 #### [facility] [address] [place], [address] Erythrocyte distribution wid th standard deviationOrdered By: Richard Ibrahim on 04-06-2025 Erythrocyte distribution width (RBC) [Ratio] 46.9 fl High 35.1-43.9 [facility] Glomerular filtration rate ( GFR) estimation/1.73 sq m using serum, plasma, or whole bOrdered By: Richard Harvey on 04-06-2025 GFR/1.73 sq M.predicted among non-blacks MDRD (S/P/Bld) [Vol rate/Area] 90 mL/min/{1.73_m2} Normal >60 [facility] Comment on above: mL/min/1.73m2 CKD-EP I Creatinine Equation (2020) Result Comment: mL/m in/1.73m2 CKD-EPI Creatinine Equation (2020) Performed By: #### L 501.9520, L500.4100 #### [facility] [address] [place], [address] [facility] deOrdered By: ED PROVIDER on 04-06-2025 Glucose [Mass/Vol] 385 mg/dL High 74-106 [facility] Comment on above: MANAGEMENT OF PATIEN T CARE PER NURSING PROTOCOL Hemoglobin measurementOrdere d By: Richard Harvey on 04-06-2025 Hemoglobin (Bld) [Mass/Vol] 16.0 g/dL Normal 13.0-16.5 [facility] Comment on above: Performed By: #### L 501.9520, L500.4100 #### [facility] [address] [place], [address] Immature granulocytes/100 WB C Auto (Bld)Ordered By: Richard Harvey on 04-06-2025 Immature granulocytes/100 WBC (Bld) 0.500 % 0.0-0.9 [facility] Comment on above: IG% - Immature Granu locytes (promyelocytes, myelocytes and metamyelocytes) > 1% indicates that a LEFT SHIFT is Present. MCV (mean corpuscular volume ) determinationOrdered By: Richard Harvey on 04-06-2025 MCV (RBC) [Entitic vol] 90.4 fL Normal 80-94 [facility] Comment on above: Performed By: #### L 501.9520, L500.4100 #### [facility] [address] [place], [address] Mean corpuscular hemoglobin (MCH) determinationOrdered By: Richard Harvey on 04-06-2025 MCH (RBC) [Entitic mass] 29.5 pg Normal 27.0-32.0 [facility] Comment on above: Performed By: #### L 501.9520, L500.4100 #### [facility] [address] [place], [address] Mean corpuscular hemoglobin concentration (MCHC) determinationOrdered By: Richard Harvey on 04-06-2025 MCHC (RBC) [Mass/Vol] 32.6 g/dL Normal 32-36 [facility] Comment on above: Delta: 31.0 on 04/03 Performed By: #### L 501.9520, L500.4100 #### [facility] [address] [place] [place], [address] Mean platelet volume determi nationOrdered By: Richard Harvey on 04-06-2025 Platelet mean volume (Bld) [Entitic vol] 9.1 fL Normal 6.2-12.0 [facility] Comment on above: Performed By: #### L 501.9520, L500.4100 #### [facility] [address] [place] [place], [address] Monocyte percentageOrdered B y: Richard Harvey on 04-06-2025 Monocytes/100 WBC (Bld) 9.0 % Normal 0-10 [facility] Comment on above: Performed By: #### L 501.9520, L500.4100 #### [facility] [address] [place], [address] Neutrophil percentageOrdered By: Richard Harvey on 04-06-2025 Neutrophils/100 WBC (Bld) 59.8 % Normal 47-70 [facility] Comment on above: Performed By: #### L 501.9520, L500.4100 #### [facility] [address] [place], [address] Nucleated red blood cell per centageOrdered By: Richard Harvey on 04-06-2025 Nucleated RBC/100 WBC (Bld) [Ratio] 0 % 0-5 [facility] Platelet countOrdered By: Asif Harvey on 04-06-2025 Platelets (Bld) [#/Vol] 429 10*3/uL Normal 150-450 [facility] Comment on above: Performed By: #### L 501.9520, L500.4100 #### [facility] [address] [place], [address] Potassium measurement (mass/ volume)Ordered By: Richard Samina on 04-06-2025 Potassium (Unsp spec) [Mass/Vol] 4.5 mmol/L 3.3-5.1 [facility] Comment on above: Hemolysis present, R esults could be affected. Serum creatinine measurement (mass/volume)Ordered By: [facility] on 04-06-2025 Creatinine [Mass/Vol] 1.06 mg/dL Normal 0.70-1.20 [facility] Comment on above: Performed By: #### L 501.9520, L500.4100 #### [facility] [address] [place], [address] Serum glucose measurement (m ass/volume)Ordered By: [facility] on 04-06-2025 Glucose [Mass/Vol] 381 mg/dL High 70-99 [facility] Comment on above: Performed By: #### L 501.9520, L500.4100 #### [facility] [address] [place], [address] Serum or plasma calcium kain urement (mass/volume)Ordered By: Richard celina Patrice on 04-06-2025 Calcium [Mass/Vol] 11.0 mg/dL Normal 7.6-11.0 [facility] Comment on above: Performed By: #### L 501.9520, L500.4100 #### [facility] [address] [place], [address] Serum or plasma urea nitroge n measurement (mass/volume)Ordered By: Richard Samina on 04-06-2025 Urea nitrogen [Mass/Vol] 17 mg/dL Normal 4-19 [facility] Comment on above: Performed By: #### L 501.9520, L500.4100 #### [facility] [address] [place], [address] Sodium levelOrdered By: Jj Harvey on 04-06-2025 Sodium [Moles/Vol] 131 mmol/L Low 133-145 [facility] Comment on above: Performed By: #### L 501.9520, L500.4100 #### [facility] [address] [place], [address] White blood cell (WBC) count Ordered By: Richard Harvey on 04-06-2025 WBC (Bld) [#/Vol] 13.0 10*3/uL High 4.4-11.0 [facility] Comment on above: Performed By: #### L 501.9520, L500.4100 #### [facility] [address] [facility] [place], [address] Comprehensive Metabolic Prof ilon 04-04-2025 Glucose [Mass/Vol] 457 mg/dL Invalid Interpretation Code 70-99 [facility] Comment on above: Order Comment: Order Date: 04/03/25Order Info: [id number] - CMPOrder Info: [id number] - LIPIDOrder Info: [id number] - TSHOrder Info: 3024-7 - T4F Result Comment: Crit ical Result(s) Called at: 2104 by: MADDY VILLALPANDO TO ANDIE FLYNN.??Results read back by same. Critical Result(s) Called at: 2104 by: MADDY VILLALPANDO TO ANDIE FLYNN.??Results read back by same. Critical Result(s) Called at: by:??Results read back by same. AMENDED REPORT 04/04/25825 GLU previously reported as: 457 *H mg/dL Critical Result(s) Called at: 2104 by: MADDY VILLALPANDO TO ANDIE FLYNN.??Results read back by same. Performed By: #### L 100.0100, L500.4050, L501.9985 ####[facility] [id number] [place], [place], [address] Vitamin D,25 Hydroxyon 04-04 Vitamin D 25-OH 35.0 ng/mL Normal 30-100 [facility] Comment on above: Order Comment: Order Date: 04/03/25Order Info: [id number] - CMPOrder Info: [id number] - LIPIDOrder Info: [id number] - TSHOrder Info: 3024-7 - T4F Result Comment: Bindu min D Status Deficiency: <20 ng/mL (50nmol/L) Insufficiency: 20-30 ng/mL (50-75 nmol/L) Sufficiency: 30-100 ng/mL (75-250 nmol/L) Toxicity: >100 ng/mL (>250 nmol/L) Performed By: #### L 500.4050 #### [facility] [address] [place], [place], [address] Absolute lymphocyte countOrd ered By: Denise Reyes on 04-03-2025 Lymphocytes Auto (Unsp spec) [#/Vol] 2.47 10*3/uL 0.83-4.51 [facility] Absolute neutrophil countOrd ered By: Denise Reyes on 04-03-2025 Neutrophils (Bld) [#/Vol] 7.1 10*3/uL 2.0-7.7 [facility] Anion gap in Serum or Plasma Ordered By: Denise Reyes on 04-03-2025 Anion gap [Moles/Vol] 12 mmol/L 5-15 [facility] Automated lymphocyte count a s percentage of total leukocytesOrdered By: Denise Reyes on 04-03-2025 Lymphocytes/100 WBC Auto (Unsp spec) 21.5 % 19-41 [facility] BUN/creatinine ratioOrdered By: Denise Reyes on 04-03-2025 Urea nitrogen/Creatinine [Mass ratio] 24.7 mg/mg High 10-20 [facility] Basophil percentageOrdered B y: Denise Reyes on 04-03-2025 Basophils/100 WBC (Bld) 1.0 % 0-1 [facility] Bilirubin, totalOrdered By: Denise Reyes on 04-03-2025 Bilirubin [Mass/Vol] 0.18 mg/dL 0.00-1.30 [facility] CBC W/Diff, Automatedon 03-07 Absolute Lymph 2.47 X10 3/uL Normal 0.83-4.51 [facility] Comment on above: Order Comment: Order Date: 04/03/25 Order Info: 0184-1 - CBCD Performed By: #### L 100.0100, L500.4050, L501.9985 #### [facility] [address] [place], [address] Absolute Neut 7.1 X10 3/uL Normal 2.0-7.7 [facility] Comment on above: Order Comment: Order Date: 04/03/25 Order Info: 0184-1 - CBCD Performed By: #### L 100.0100, L500.4050, L501.9985 #### [facility] [address] [place], [address] Basophils/100 WBC (Bld) 1.0 % Normal 0-1 [facility] Comment on above: Order Comment: Order Date: 04/03/25 Order Info: 0184-1 - CBCD Performed By: #### L 100.0100, L500.4050, L501.9985 #### [facility] [address] [place], [address] Eosinophils/100 WBC (Bld) 9.1 % High 0-5 [facility] Comment on above: Order Comment: Order Date: 04/03/25 Order Info: 0184-1 - CBCD Performed By: #### L 100.0100, L500.4050, L501.9985 #### [facility] [address] [place], [address] Erythrocyte distribution width (RBC) [Ratio] 14.1 % Normal 11.6-14.6 [facility] Comment on above: Order Comment: Order Date: 04/03/25 Order Info: 0184-1 - CBCD Performed By: #### L 100.0100, L500.4050, L501.9985 #### [facility] [address] [place], [address] Hematocrit (Bld) [Volume fraction] 44.5 % Normal 40-54 [facility] Comment on above: Order Comment: Order Date: 04/03/25 Order Info: 018- - CBCD Performed By: #### L 100.0100, L500.4050, L501.9985 #### [facility] [address] [place], [address] Hemoglobin (Bld) [Mass/Vol] 13.8 g/dL Normal 13.0-16.5 [facility] Comment on above: Order Comment: Order Date: 04/03/25 Order Info: 018- - CBCD Performed By: #### L 100.0100, L500.4050, L501.9985 #### [facility] [address] [place], [address] IG% 0.300 Normal 0.0-0.9 [facility] Comment on above: Order Comment: Order Date: 04/03/25 Order Info: 018- - CBCD Result Comment: IG% - Immature Granulocytes (promyelocytes, myelocytes and metamyelocytes) > 1% indicates that a LEFT SHIFT is Present. Performed By: #### L 100.0100, L500.4050, L501.9985 #### [facility] [address] [place], [address] Lymphocytes/100 WBC (Bld) 21.5 % Normal 19-41 [facility] Comment on above: Order Comment: Order Date: 04/03/25 Order Info: 018- - CBCD Performed By: #### L 100.0100, L500.4050, [id number] #### [facility] [address] [place], [address] MCH (RBC) [Entitic mass] 29.2 pg Normal 27.0-32.0 [facility] Comment on above: Order Comment: Order Date: 04/03/25 Order Info: 0184-1 - CBCD Performed By: #### L 100.0100, L500.4050, [id number] #### [facility] [address] [place], [address] MCHC (RBC) [Mass/Vol] 31.0 g/dL Low 32-36 [facility] Comment on above: Order Comment: Order Date: 04/03/25 Order Info: 0184-1 - CBCD Performed By: #### L 100.0100, L500.4050, [id number] #### [facility] [address] [place], [address] MCV (RBC) [Entitic vol] 94.1 fL High 80-94 [facility] Comment on above: Order Comment: Order Date: 04/03/25 Order Info: 0184-1 - CBCD Performed By: #### L 100.0100, L500.4050, [id number] #### [facility] [address] [place], [address] Monocytes/100 WBC (Bld) 6.8 % Normal 0-10 [facility] Comment on above: Order Comment: Order Date: 04/03/25 Order Info: 0184-1 - CBCD Performed By: #### L 100.0100, L500.4050, [id number] #### [facility] [address] [place], [address] Neutrophils/100 WBC (Bld) 61.3 % Normal 47-70 [facility] Comment on above: Order Comment: Order Date: 04/03/25 Order Info: 0184-1 - CBCD Performed By: #### L 100.0100, L500.4050, [id number] #### [facility] [address] [place], [address] Nucleated RBC (Bld) [#/Vol] 0 10*3/uL Normal 0-5 [facility] Comment on above: Order Comment: Order Date: 04/03/25 Order Info: 0184-1 - CBCD Performed By: #### L 100.0100, L500.4050, [id number] #### [facility] [address] [place], [address] Platelet mean volume (Bld) [Entitic vol] 9.8 fL Normal 6.2-12.0 [facility] Comment on above: Order Comment: Order Date: 04/03/25 Order Info: 0184-1 - CBCD Performed By: #### L 100.0100, L500.4050, [id number] #### [facility] [address] [place], [address] Platelets (Bld) [#/Vol] 388 10*3/uL Normal 150-450 [facility] Comment on above: Order Comment: Order Date: 04/03/25 Order Info: 0184-1 - CBCD Performed By: #### L 100.0100, L500.4050, [id number] #### [facility] [address] [place], [address] RBC (Bld) [#/Vol] 4.73 10*6/uL Normal 4.6-6.2 [facility] Comment on above: Order Comment: Order Date: 04/03/25 Order Info: 0184-1 - CBCD Performed By: #### L 100.0100, L500.4050, [id number] #### [facility] [address] [place], [address] RDW SD 48.3 fl High 35.1-43.9 [facility] Comment on above: Order Comment: Order Date: 04/03/25 Order Info: 0184-1 - CBCD Performed By: #### L 100.0100, L500.4050, [id number] #### [facility] [address] [place], [place], [address] WBC (Bld) [#/Vol] 11.5 10*3/uL High 4.4-11.0 [facility] Comment on above: Order Comment: Order Date: 04/03/25 Order Info: 0184-1 - CBCD Performed By: #### L 100.0100, L500.4050, [id number] #### [facility] [address] [facility] [place], [address] Calculated very low density lipoprotein (VLDL) cholesterol measurementOrdered By: Denise Reyes on 04-03-2025 Calculated very low density lipoprotein (VLDL) cholesterol measurement 53 mg/dL High 5-40 [facility] Carbon dioxide, total [Moles /volume] in Central venous bloodOrdered By: Denise Reyes on 04-03-2025 CO2 [Moles/Vol] 21.8 mmol/L 21.0-32.0 [facility] Chloride assayOrdered By: Elaine Reyes on 04-03-2025 Chloride [Moles/Vol] 99 mmol/L 98-108 [facility] Eosinophil percentageOrdered By: Denise Reyes on 04-03-2025 Eosinophils/100 WBC (Bld) 9.1 % High 0-5 [facility] Erythrocyte distribution wid th ratioOrdered By: Denise Reyes on 04-03-2025 Erythrocyte distribution width (RBC) [Ratio] 14.1 % 11.6-14.6 [facility] Erythrocyte distribution wid th standard deviationOrdered By: Denise Reyes on 04-03-2025 Erythrocyte distribution width (RBC) [Ratio] 48.3 fl High 35.1-43.9 [facility] Glomerular filtration rate ( GFR) estimation/1.73 sq m using serum, plasma, or whole bOrdered By: Denise Reyes on 04-03-2025 GFR/1.73 sq M.predicted among non-blacks MDRD (S/P/Bld) [Vol rate/Area] 109 mL/min/{1.73_m2} >60 [facility] Comment on above: mL/min/1.73m2 CKD-EP I Creatinine Equation (2020) Hematocrit Auto (Bld) [Volum e fraction]Ordered By: Denise Reyes on 04-03-2025 Hematocrit (Bld) [Volume fraction] 44.5 % 40-54 [facility] Hemoglobin A1con 04-03-2025 HbA1c (Bld) [Mass fraction] 15.1 % High <=5.6 [facility] Comment on above: Order Comment: Order Date: 04/03/25 Order Info: [id number] - A1C Result Comment: Norm al < 5.7 % Prediabetic 5.7 - 6.4 % Diabetic >or= 6.5 % Please note range changes. Performed By: #### L 100.0100, L500.4050, L501.9985 #### [facility] [place], [address] Hemoglobin A1c percentageOrd ered By: Denise Reyes on 04-03-2025 HbA1c (Bld) [Mass fraction] 15.1 % High <5.7 [facility] Comment on above: Normal < 5.7 % Predi abetic 5.7 - 6.4 % Diabetic >or= 6.5 % Please note range changes. Hemoglobin measurementOrdere d By: Denise Reyes on 04-03-2025 Hemoglobin (Bld) [Mass/Vol] 13.8 g/dL 13.0-16.5 [facility] Immature granulocytes/100 WB C Auto (Bld)Ordered By: Denise Reyes on 04-03-2025 Immature granulocytes/100 WBC (Bld) 0.300 % 0.0-0.9 [facility] Comment on above: IG% - Immature Granu locytes (promyelocytes, myelocytes and metamyelocytes) > 1% indicates that a LEFT SHIFT is Present. LDL calc ser/plasOrdered By: Denise Reyes on 04-03-2025 Cholesterol in LDL [Mass/Vol] 19 mg/dL [facility] Comment on above: Qdwtvzvtqt=405-487 m g/dL & Higher Yqtr=429 mg/dL or greater Laboratory - Chemistry and C hemistry - challengeOrdered By: Denise Reyes on 04-03-2025 AST [Catalytic activity/Vol] 72 U/L High <38 [facility] Lipid Profileon 04-03-2025 CHOL:HDL 2.86 Normal [facility] Comment on above: Order Comment: Order Date: 04/03/25 Order Info: 07-1 - CMP Order Info: - LIPID Order Info: 3 - TSH Order Info: 3024-05 T4F Performed By: #### L 501.9520, L500.4100 #### [facility] [address] [place], [address] Cholesterol [Mass/Vol] 110 mg/dL Normal <=200 [facility] Comment on above: Order Comment: Order Date: 04/03/25 Order Info: 785- - CMP Order Info: - LIPID Order Info: [id number] - TSH Order Info: 3024-05 T4F Result Comment: Chol esterol level, Desirable <200 mg/dL Borderline high cholesterol 200-239 mg/dL High cholesterol >=240 mg/dL Recommendations of the NCEP Adult Treatment Panel for the following risk-cutoff thresholds for the [place] population. Performed By: #### L 501.9520, L500.4100 #### [facility] [address] [place], [address] Cholesterol in HDL [Mass/Vol] 39 mg/dL Low [facility] Comment on above: Order Comment: Order Date: 04/03/25 Order Info: 0786 - CMP Order Info: - LIPID Order Info: [id number] - TSH Order Info: 3024-05 - T4F Result Comment: [place] onal Cholesterol Education Program (NCEP) guidelines: <40 mg/dL: Low HDL-cholesterol (major risk factor for CHD) >= 60 mg/dL: High HDL-cholesterol (negative risk factor for CHD) HDL-cholesterol is affected by a number of factors, e.g. smoking, exercise, hormones, sex and age. Performed By: #### L 501.9520, L500.4100 #### [facility] [address] [place], [address] Cholesterol in LDL [Mass/Vol] 19 mg/dL Normal [facility] Comment on above: Order Comment: Order Date: 04/03/25 Order Info: [id number] - CMP Order Info: - LIPID Order Info: 3 - TSH Order Info: 7 - T4F Result Comment: Bord rojyws=960-848 mg/dL Higher Smcs=355 mg/dL or greater Performed By: #### L 501.9520, L500.4100 #### [facility] [address] [place], [address] Cholesterol in VLDL [Mass/Vol] 53 mg/dL High 5-40 [facility] Comment on above: Order Comment: Order Date: 04/03/25 Order Info: 0786 - CMP Order Info: - LIPID Order Info: [id number] - TSH Order Info: 3024-05 - T4F Performed By: #### L 501.9520, L500.4100 #### [facility] [address] [place], [address] Triglyceride [Mass/Vol] 264 mg/dL High [facility] Comment on above: Order Comment: Order Date: 04/03/25 Order Info: 0786- - CMP Order Info: [id number] - LIPID Order Info: 3 - TSH Order Info: 7 - T4F Result Comment: The drugs N-Acetylcysteine and Metamizole may falsely depress this assay. Normal range: <150 mg/dL Borderline High: 150-199 mg/dL High: 200-499 mg/dL Very High: >500 mg/dL Performed By: #### L 501.9520, L500.4100 #### [facility] [address] [place], [address] MCV (mean corpuscular volume ) determinationOrdered By: Denise Reyes on 04-03-2025 MCV (RBC) [Entitic vol] 94.1 fL High 80-94 [facility] Mean corpuscular hemoglobin (MCH) determinationOrdered By: Denise Reyes on 04-03-2025 MCH (RBC) [Entitic mass] 29.2 pg 27.0-32.0 [facility] Mean corpuscular hemoglobin concentration (MCHC) determinationOrdered By: Denise Reyes on 04-03-2025 MCHC (RBC) [Mass/Vol] 31.0 g/dL Low 32-36 [facility] Mean platelet volume determi nationOrdered By: Denise Reyes on 04-03-2025 Platelet mean volume (Bld) [Entitic vol] 9.8 fL 6.2-12.0 [facility] Monocyte percentageOrdered B y: Denise Reyes on 04-03-2025 Monocytes/100 WBC (Bld) 6.8 % 0-10 [facility] Neutrophil percentageOrdered By: Denise Reyes on 04-03-2025 Neutrophils/100 WBC (Bld) 61.3 % 47-70 [facility] Nucleated red blood cell per centageOrdered By: Denise Reyes on 04-03-2025 Nucleated RBC/100 WBC (Bld) [Ratio] 0 % 0-5 [facility] Platelet countOrdered By: Elaine Reyes on 04-03-2025 Platelets (Bld) [#/Vol] 388 10*3/uL 150-450 [facility] Potassium measurement (mass/ volume)Ordered By: Denise Reyes on 04-03-2025 Potassium (Unsp spec) [Mass/Vol] 4.8 mmol/L 3.3-5.1 [facility] RBC Auto (Bld) [#/Vol]Ordere d By: Denise Reyes on 04-03-2025 RBC (Bld) [#/Vol] 4.73 10*6/uL 4.6-6.2 [facility] Random urine creatinine kain urement (mass/volume)Ordered By: Denise Reyes on 04-03-2025 Creatinine Unsp time (U) [Mass/Vol] 14.80 mg/dL Low 39.00-259.00 [facility] Screening total cholesterol/ high density lipoprotein (HDL) cholesterol ratioOrdered By: Denise Reyes on 04-03-2025 Cholesterol.total/[place] sterol in HDL [Mass ratio] 2.86 {ratio} [facility] Serum creatinine measurement (mass/volume)Ordered By: Denise Reyes on 04-03-2025 Creatinine [Mass/Vol] 0.90 mg/dL 0.70-1.20 [facility] Serum globulin measurementOr dered By: Denise Reyes on 04-03-2025 Globulin (S) [Mass/Vol] 3.2 g/dL 2.2-4.2 [facility] Serum glucose measurement (m ass/volume)Ordered By: Denise Reyes on 04-03-2025 Glucose [Mass/Vol] 457 mg/dL High 70-99 [facility] Comment on above: Critical Result(s) C alled [...] ANDIE FLYNN. Results read back by same. Serum or plasma alanine lindsey otransferase (ALT) measurementOrdered By: Denise Reyes on 04-03-2025 ALT [Catalytic activity/Vol] 179 U/L High <47 [facility] Serum or plasma albumin kain urement (mass/volume)Ordered By: Denise Reyes on 04-03-2025 Albumin [Mass/Vol] 4.0 g/dL 3.5-5.0 [facility] Serum or plasma albumin/glob ulin mass ratioOrdered By: Denise Reyes on 04-03-2025 Albumin/Globulin [Mass ratio] 1.3 {ratio} 0.9-2.4 [facility] Serum or plasma alkaline buffy sphatase measurementOrdered By: Denise Reyes on 04-03-2025 ALP [Catalytic activity/Vol] 366 U/L High 40-129 [facility] Serum or plasma calcium kain urement (mass/volume)Ordered By: Denise Reyes on 04-03-2025 Calcium [Mass/Vol] 9.9 mg/dL 7.6-11.0 [facility] Serum or plasma cholesterol in HDL measurement (mass/volume)Ordered By: Denise Reyes on 04-03-2025 Cholesterol in HDL [Mass/Vol] 39 mg/dL Low >40 [facility] Comment on above: National Cholesterol Education Program (NCEP) guidelines:<40 mg/dL: Low HDL-cholesterol (major risk factor for CHD)>= 60 mg/dL: High HDL-cholesterol (negative risk factor for CHD)HDL-cholesterol is affected by a number of factors, e.g. smoking, exercise, hormones, sex and age. Serum or plasma cholesterol measurement (mass/volume)Ordered By: Denise Reyes on 04-03-2025 Cholesterol [Mass/Vol] 110 mg/dL <201 [facility] Comment on above: Cholesterol level, D esirable <200 mg/dLBorderline high cholesterol 200-239 mg/dLHigh cholesterol >=240 mg/dLRecommendations of the NCEP Adult Treatment Panel for the following risk-cutoff thresholds for the [place] population. Serum or plasma urea nitroge n measurement (mass/volume)Ordered By: Denise Reyes on 04-03-2025 Urea nitrogen [Mass/Vol] 22 mg/dL High 4-19 [facility] Sodium levelOrdered By: Denise Reyes on 04-03-2025 Sodium [Moles/Vol] 133 mmol/L 133-145 [facility] T4 Free Directon 04-03-2025 T4 FREE DIRECT 1.70 ng/dL High 0.76-1.46 [facility] Comment on above: Order Comment: Order Date: 04/03/25 Order Info: 0786-1 - CMP Order Info: [id number] - LIPID Order Info: [id number] - TSH Order Info: 3024-7 - T4F Performed By: #### L 501.9520, L500.4100 #### [facility] [address] [place], [address] T4 freeOrdered By: Denise alonzo on 04-03-2025 Free T4 [Mass/Vol] 1.70 ng/dL High 0.76-1.46 [facility] TSH DL <= 0.005 mIU/L QnOrde red By: Denise Reyes on 04-03-2025 TSH Qn 1.400 uIU/mL 0.300-4.200 [facility] Thyroid Stim Hormone (TSH)on 04-03-2025 TSH 1.400 uIU/mL Normal 0.300-4.200 [facility] Comment on above: Order Comment: Order Date: 04/03/25 Order Info: 0786-1 - CMP Order Info: [id number] - LIPID Order Info: [id number] - TSH Order Info: 3024-7 - T4F Performed By: #### L 501.9520, L500.4100 #### [facility] [address] [place], [address] Total proteinOrdered By: Mina Reyes on 04-03-2025 Protein [Mass/Vol] 7.2 g/dL 5.9-8.4 [facility] Triglycerides measurementOrd ered By: Denise Reyes on 04-03-2025 Triglyceride [Mass/Vol] 264 mg/dL High <199 [facility] Comment on above: The drugs N-Acetylcy steine and Metamizole may falsely depress this assay. Normal range: <150 mg/dLBorderline High: 150-199 mg/dLHigh: 200-499 mg/dLVery High: >500 mg/dL Urine albumin measurement [facility] detection limit of 20 mg/L or less (mass/volume)Ordered By: Denise Reyes on 04-03-2025 Albumin DL <= 20 mg/L (U) [Mass/Vol] 99.4 mg/L NO RANGE EST. [facility] White blood cell (WBC) count Ordered By: Denise Reyes on 04-03-2025 WBC (Bld) [#/Vol] 11.5 10*3/uL High 4.4-11.0 [facility] Absolute lymphocyte countOrd ered By: Denise Reyes on 01-30-2025 Lymphocytes Auto (Unsp spec) [#/Vol] 2.55 10*3/uL 0.83-4.51 [facility] Absolute neutrophil countOrd ered By: Denise Reyes on 01-30-2025 Neutrophils (Bld) [#/Vol] 8.3 10*3/uL High 2.0-7.7 [facility] Anion gap in Serum or Plasma Ordered By: Denise Reyes on 01-30-2025 Anion gap [Moles/Vol] 19 mmol/L High 5-15 [facility] Automated lymphocyte count a s percentage of total leukocytesOrdered By: Denise Reyes on 01-30-2025 Lymphocytes/100 WBC Auto (Unsp spec) 19.2 % 19-41 [facility] BUN/creatinine ratioOrdered By: Denise Reyes on 01-30-2025 Urea nitrogen/Creatinine [Mass ratio] 28.0 mg/mg High 10-20 [facility] Basophil percentageOrdered B y: Denise Reyes on 01-30-2025 Basophils/100 WBC (Bld) 0.7 % 0-1 [facility] Bilirubin, totalOrdered By: Denise Reyes on 01-30-2025 Bilirubin [Mass/Vol] 0.15 mg/dL 0.00-1.30 [facility] CBC W/Diff, Automatedon 01-04 Absolute Lymph 2.55 X10 3/uL Normal 0.83-4.51 [facility] Comment on above: Order Comment: Order Date: 04/03/25 Order Info: 0786-1 - CMP Order Info: [id number] - LIPID Order Info: 3016-3 - TSH Order Info: 30247 - T4F Performed By: #### L 501.9520, L5.0640 #### [facility] [address] [place], [address] Absolute Neut 8.3 X10 3/uL High 2.0-7.7 [facility] Comment on above: Order Comment: Order Date: 04/03/25 Order Info: 0786-1 - CMP Order Info: [id number] - LIPID Order Info: [id number] - TSH Order Info: 3024-7 - T4F Performed By: #### L 501.9520, L500.7680 #### [facility] [address] [place], [address] Basophils/100 WBC (Bld) 0.7 % Normal 0-1 [facility] Comment on above: Order Comment: Order Date: 04/03/25 Order Info: 785-1 - CMP Order Info: - LIPID Order Info: 3 - TSH Order Info: 3024-7 - T4F Performed By: #### L 501.9520, L500.4100 #### [facility] [address] [place], [address] Eosinophils/100 WBC (Bld) 10.5 % High 0-5 [facility] Comment on above: Order Comment: Order Date: 04/03/25 Order Info: 785- - CMP Order Info: - LIPID Order Info: [id number] - TSH Order Info: 3027 - T4F Performed By: #### L [id number], L500.4100 #### [facility] [address] [place], [place], [id number] Erythrocyte distribution width (RBC) [Ratio] 12.9 % Normal 11.6-14.6 [facility] Comment on above: Order Comment: Order Date: 04/03/25 Order Info: 785-11 - CMP Order Info: - LIPID Order Info: 3 - TSH Order Info: 302-7 - T4F Performed By: #### L 501.9520, L500.4100 #### [facility] [address] [place], [address] Hematocrit (Bld) [Volume fraction] 43.0 % Normal 40-54 [facility] Comment on above: Order Comment: Order Date: 04/03/25 Order Info: 785-1 - CMP Order Info: [id number] - LIPID Order Info: 3 - TSH Order Info: 3024-7 - T4F Performed By: #### L 501.9520, L500.4100 #### [facility] [address] [place], [address] Hemoglobin (Bld) [Mass/Vol] 13.7 g/dL Normal 13.0-16.5 [facility] Comment on above: Order Comment: Order Date: 04/03/25 Order Info: 785- - CMP Order Info: - LIPID Order Info: 3 - TSH Order Info: 7 - T4F Performed By: #### L 501.9520, L500.4100 #### [facility] [address] [place], [address] IG% 0.200 Normal 0.0-0.9 [facility] Comment on above: Order Comment: Order Date: 04/03/25 Order Info: 785-11 - CMP Order Info: - LIPID Order Info: 3 - TSH Order Info: 7 - T4F Result Comment: IG% - Immature Granulocytes (promyelocytes, myelocytes and metamyelocytes) > 1% indicates that a LEFT SHIFT is Present. Performed By: #### L 501.9520, L500.4100 #### [facility] [address] [place], [address] Lymphocytes/100 WBC (Bld) 19.2 % Normal 19-41 [facility] Comment on above: Order Comment: Order Date: 04/03/25 Order Info: 785-11 - CMP Order Info: - LIPID Order Info: 3 - TSH Order Info: 7 - T4F Performed By: #### L 501.9520, L500.4100 #### [facility] [address] [place], [address] MCH (RBC) [Entitic mass] 29.1 pg Normal 27.0-32.0 [facility] Comment on above: Order Comment: Order Date: 04/03/25 Order Info: 785-11 - CMP Order Info: [id number] - LIPID Order Info: 3 - TSH Order Info: 7 - T4F Performed By: #### L 501.9520, L500.4100 #### [facility] [address] [place], [address] MCHC (RBC) [Mass/Vol] 31.9 g/dL Low 32-36 [facility] Comment on above: Order Comment: Order Date: 04/03/25 Order Info: 785- - CMP Order Info: [id number] - LIPID Order Info: 301-3 - TSH Order Info: 3024-7 - T4F Performed By: #### L [id number], L500.4100 #### [facility] [address] [place], [address] MCV (RBC) [Entitic vol] 91.3 fL Normal 80-94 [facility] Comment on above: Order Comment: Order Date: 04/03/25 Order Info: 785-11 - CMP Order Info: - LIPID Order Info: 3 - TSH Order Info: 3024-7 - T4F Performed By: #### L 501.9520, L500.4100 #### [facility] [address] [place], [address] Monocytes/100 WBC (Bld) 7.2 % Normal 0-10 [facility] Comment on above: Order Comment: Order Date: 04/03/25 Order Info: 07 - CMP Order Info: - LIPID Order Info: 3013 - TSH Order Info: 3024-7 - T4F Performed By: #### L 501.9520, L500.4100 #### [facility] [address] [place], [address] Neutrophils/100 WBC (Bld) 62.2 % Normal 47-70 [facility] Comment on above: Order Comment: Order Date: 04/03/25 Order Info: 0786 - CMP Order Info: - LIPID Order Info: [id number] - TSH Order Info: 3024-7 - T4F Performed By: #### L 501.9520, L500.4100 #### [facility] [address] [place], [address] Nucleated RBC (Bld) [#/Vol] 0 10*3/uL Normal 0-5 [facility] Comment on above: Order Comment: Order Date: 04/03/25 Order Info: 0786-1 - CMP Order Info: [id number] - LIPID Order Info: 3015-3 - TSH Order Info: 302-7 - T4F Performed By: #### L 501.9520, L500.4100 #### [facility] [address] [place], [address] Platelet mean volume (Bld) [Entitic vol] 9.6 fL Normal 6.2-12.0 [facility] Comment on above: Order Comment: Order Date: 04/03/25 Order Info: 07 - CMP Order Info: [id number] - LIPID Order Info: 3016-01 - TSH Order Info: 7 - T4F Performed By: #### L [id number], L500.4100 #### [facility] [address] [place], [address] Platelets (Bld) [#/Vol] 458 10*3/uL High 150-450 [facility] Comment on above: Order Comment: Order Date: 04/03/25 Order Info: 0786- - CMP Order Info: [id number] - LIPID Order Info: 3 - TSH Order Info: 7 - T4F Performed By: #### L 501.9520, L500.4100 #### [facility] [address] [place], [address] RBC (Bld) [#/Vol] 4.71 10*6/uL Normal 4.6-6.2 [facility] Comment on above: Order Comment: Order Date: 04/03/25 Order Info: 0786-1 - CMP Order Info: 15375-0 - LIPID Order Info: 3 - TSH Order Info: 3023-7 - T4F Performed By: #### L 501.9520, L500.4100 #### [facility] [address] [place], [place], [address] RDW SD 43.2 fl Normal 35.1-43.9 [facility] Comment on above: Order Comment: Order Date: 04/03/25 Order Info: 785- - CMP Order Info: - LIPID Order Info: 3016-01 - TSH Order Info: 3024-05 - T4F Performed By: #### L 501.9520, L500.4100 #### [facility] [address] [place], [address] WBC (Bld) [#/Vol] 13.3 10*3/uL High 4.4-11.0 [facility] Comment on above: Order Comment: Order Date: 04/03/25 Order Info: 785-11 - CMP Order Info: - LIPID Order Info: 3016-01 - TSH Order Info: 3024-05 - T4F Performed By: #### L 501.9520, L500.4100 #### [facility] [address] [place], [place], [address] Calculated very low density lipoprotein (VLDL) cholesterol measurementOrdered By: Denise Reyes on 01-30-2025 Calculated very low density lipoprotein (VLDL) cholesterol measurement 93 mg/dL High 5-40 [facility] Carbon dioxide, total [Moles /volume] in Central venous bloodOrdered By: Denise Reyes on 01-30-2025 CO2 [Moles/Vol] 13.6 mmol/L Low 21.0-32.0 [facility] Chloride assayOrdered By: Elaine Reyes on 01-30-2025 Chloride [Moles/Vol] 96 mmol/L Low 98-108 [facility] Comprehensive Metabolic Prof ilon 01-30-2025 Albumin [Mass/Vol] 4.0 g/dL Normal 3.5-5.0 [facility] Comment on above: Order Comment: Order Date: 04/03/25 Order Info: 785-11 - CMP Order Info: - LIPID Order Info: [id number] - TSH Order Info: 3024-7 - T4F Performed By: #### L 501.9520, L500.4100 #### [facility] [address] [place], [place], [address] Albumin/Globulin [Mass ratio] 1.2 {ratio} Normal 0.9-2.4 [facility] Comment on above: Order Comment: Order Date: 04/03/25 Order Info: 86-1 - CMP Order Info: [id number] - LIPID Order Info: 3 - TSH Order Info: 3024-7 - T4F Performed By: #### L 501.9520, L500.4100 #### [facility] [address] [place], [place], [id number] ALK PHOS 642 U/L High 40-129 [facility] Comment on above: Order Comment: Order Date: 04/03/25 Order Info: 785- - CMP Order Info: - LIPID Order Info: 3013 - TSH Order Info: 3024-7 - T4F Performed By: #### L 501.9520, L500.4100 #### [facility] [address] [place], [place], [id number] ALT [Catalytic activity/Vol] 146 U/L High <=46 [facility] Comment on above: Order Comment: Order Date: 04/03/25 Order Info: 785- - CMP Order Info: 14410-5 - LIPID Order Info: 3016-3 - TSH Order Info: 3024-7 - T4F Performed By: #### L 501.9520, L500.4100 #### [facility] [address] [place], [address] AST [Catalytic activity/Vol] 52 U/L High <=37 [facility] Comment on above: Order Comment: Order Date: 04/03/25 Order Info: 785-1 - CMP Order Info: [id number] - LIPID Order Info: 3016-3 - TSH Order Info: 3024-7 - T4F Performed By: #### L 501.9520, L500.4100 #### [facility] [address] [place], [place], [id number] Bilirubin [Mass/Vol] 0.15 mg/dL Normal 0.00-1.30 [facility] Comment on above: Order Comment: Order Date: 04/03/25 Order Info: 785-1 - CMP Order Info: [id number] - LIPID Order Info: 3 - TSH Order Info: 3024-7 - T4F Performed By: #### L 501.9520, L500.4100 #### [facility] [address] [place], [place], [address] BUN/CRE 28.0 RATIO High 10-20 [facility] Comment on above: Order Comment: Order Date: 04/03/25 Order Info: 785- - CMP Order Info: [id number] - LIPID Order Info: 3 - TSH Order Info: 3024-7 - T4F Performed By: #### L 501.9520, L500.4100 #### [facility] [address] [place], [place], [address] Calcium [Mass/Vol] 10.3 mg/dL Normal 7.6-11.0 [facility] Comment on above: Order Comment: Order Date: 04/03/25 Order Info: 785- - CMP Order Info: [id number] - LIPID Order Info: 3013 - TSH Order Info: 3024-7 - T4F Performed By: #### L 501.9520, L500.4100 #### [facility] [address] [place], [place], [address] Chloride [Moles/Vol] 96 mmol/L Low 98-108 [facility] Comment on above: Order Comment: Order Date: 04/03/25 Order Info: 785-1 - CMP Order Info: [id number] - LIPID Order Info: 3013 - TSH Order Info: 3024-7 - T4F Performed By: #### L 501.9520, L500.4100 #### [facility] [address] [place], [place], [address] CO2 [Moles/Vol] 13.6 mmol/L Low 21.0-32.0 [facility] Comment on above: Order Comment: Order Date: 04/03/25 Order Info: 0786-1 - CMP Order Info: [id number] - LIPID Order Info: 3016-3 - TSH Order Info: 3024-7 - T4F Performed By: #### L 501.9520, L500.4100 #### [facility] [address] [place], [place], [address] Creatinine [Mass/Vol] 0.85 mg/dL Normal 0.70-1.20 [facility] Comment on above: Order Comment: Order Date: 04/03/25 Order Info: 0786- - CMP Order Info: - LIPID Order Info: 3 - TSH Order Info: 7 - T4F Performed By: #### L 501.9520, L500.4100 #### [facility] [address] [place], [place], [address] GAP 19 High 5-15 [facility] Comment on above: Order Comment: Order Date: 04/03/25 Order Info: 0786 - CMP Order Info: - LIPID Order Info: 3 - TSH Order Info: 3027 - T4F Performed By: #### L 501.9520, L500.4100 #### [facility] [address] [place], [place], [address] GFR/1.73 sq M.predicted among non-blacks MDRD (S/P/Bld) [Vol rate/Area] 111 mL/min/{1.73_m2} Normal >60 [facility] Comment on above: Order Comment: Order Date: 04/03/25 Order Info: 0786-1 - CMP Order Info: [id number] - LIPID Order Info: 3016-3 - TSH Order Info: 3024-7 - T4F Result Comment: mL/m in/1.73m2 CKD-EPI Creatinine Equation (2020) Performed By: #### L 501.9520, L500.4100 #### [facility] [address] [place], [address] Globulin (S) [Mass/Vol] 3.4 g/dL Normal 2.2-4.2 [facility] Comment on above: Order Comment: Order Date: 04/03/25 Order Info: 86-1 - CMP Order Info: [id number] - LIPID Order Info: 3015-3 - TSH Order Info: 302-7 - T4F Performed By: #### L 501.9520, L500.4100 #### [facility] [address] [place], [address] Glucose [Mass/Vol] 543 mg/dL Invalid Interpretation Code 70-99 [facility] Comment on above: Order Comment: Order Date: 04/03/25 Order Info: 785-1 - CMP Order Info: [id number] - LIPID Order Info: 3015-3 - TSH Order Info: 302-7 - T4F Result Comment: Crit ical Result(s) Called at: 2135 by:??WILLIAM GODINEZ TO DR. Emani PEREZ Results read back by same. Performed By: #### L 501.9520, L500.4100 #### [facility] [address] [place], [address] Potassium [Moles/Vol] 4.4 mmol/L Normal 3.3-5.1 [facility] Comment on above: Order Comment: Order Date: 04/03/25 Order Info: 0786-1 - CMP Order Info: 10742-0 - LIPID Order Info: 3016-3 - TSH Order Info: 3024-7 - T4F Performed By: #### L 501.9520, L500.4100 #### [facility] [address] [place], [address] Sodium [Moles/Vol] 128 mmol/L Low 133-145 [facility] Comment on above: Order Comment: Order Date: 04/03/25 Order Info: 0786-1 - CMP Order Info: 73725-3 - LIPID Order Info: 6-3 - TSH Order Info: 7 - T4F Performed By: #### L 501.9520, L500.4100 #### [facility] [address] [place], [place], [address] T PROT 7.4 g/dL Normal 5.9-8.4 [facility] Comment on above: Order Comment: Order Date: 04/03/25 Order Info: 0786-1 - CMP Order Info: [id number] - LIPID Order Info: 3 - TSH Order Info: 7 - T4F Performed By: #### L 501.9520, L500.4100 #### [facility] [address] [place], [place], [address] Urea nitrogen [Mass/Vol] 24 mg/dL High 4-19 [facility] Comment on above: Order Comment: Order Date: 04/03/25 Order Info: 0786-1 - CMP Order Info: [id number] - LIPID Order Info: 3015-3 - TSH Order Info: 7 - T4F Performed By: #### L 501.9520, L500.4100 #### [facility] [address] [place], [place], [address] Eosinophil percentageOrdered By: Denise Reyes on 01-30-2025 Eosinophils/100 WBC (Bld) 10.5 % High 0-5 [facility] Erythrocyte distribution wid th ratioOrdered By: Denise Reyes on 01-30-2025 Erythrocyte distribution width (RBC) [Ratio] 12.9 % 11.6-14.6 [facility] Erythrocyte distribution wid th standard deviationOrdered By: Denise Reyes on 01-30-2025 Erythrocyte distribution width (RBC) [Ratio] 43.2 fl 35.1-43.9 [facility] Glomerular filtration rate ( GFR) estimation/1.73 sq m using serum, plasma, or whole bOrdered By: Denise Reyes on 01-30-2025 GFR/1.73 sq M.predicted among non-blacks MDRD (S/P/Bld) [Vol rate/Area] 111 mL/min/{1.73_m2} >60 [facility] Comment on above: mL/min/1.73m2 CKD-EP I Creatinine Equation (2020) Hematocrit Auto (Bld) [Volum e fraction]Ordered By: Denise Reyes on 01-30-2025 Hematocrit (Bld) [Volume fraction] 43.0 % 40-54 [facility] Hemoglobin A1con 01-30-2025 HbA1c (Bld) [Mass fraction] 12.2 % Normal <=5.6 [facility] Comment on above: Order Comment: Order Date: 04/03/25 Order Info: 0786-1 - CMP Order Info: [id number] - LIPID Order Info: 3016-01 - TSH Order Info: 3024-05 - T4F Performed By: #### L 501.9520, L500.4100 #### [facility] [address] [place] [address], [address] Hemoglobin A1c percentageOrd ered By: Denise Reyes on 01-30-2025 HbA1c (Bld) [Mass fraction] 12.2 % >5.7 [facility] Hemoglobin measurementOrdere d By: Denise Reyes on 01-30-2025 Hemoglobin (Bld) [Mass/Vol] 13.7 g/dL 13.0-16.5 [facility] Immature granulocytes/100 WB C Auto (Bld)Ordered By: Denise Reyes on 01-30-2025 Immature granulocytes/100 WBC (Bld) 0.200 % 0.0-0.9 [facility] Comment on above: IG% - Immature Granu locytes (promyelocytes, myelocytes and metamyelocytes) > 1% indicates that a LEFT SHIFT is Present. L506.1001on 01-30-2025 Vitamin D 25-OH 31.6 ng/mL Normal 30-100 [facility] Comment on above: Order Comment: Order Date: 01/30/25Order Info: 0786-1 - CMPOrder Info: [id number] - LIPIDOrder Info: 3015-3 - TSHOrder Info: 3024-05 - T4F Result Comment: Bindu min D Status Deficiency: <20 ng/mL (50nmol/L) Insufficiency: 20-30 ng/mL (50-75 nmol/L) Sufficiency: 30-100 ng/mL (75-250 nmol/L) Toxicity: >100 ng/mL (>250 nmol/L) Performed By: #### L 500.4050 #### [facility] [address] [place], [address] LDL calc ser/plasOrdered By: Denise Reyes on 01-30-2025 Cholesterol in LDL [Mass/Vol] 23 mg/dL [facility] Comment on above: Vayjsefoiz=977-995 m g/dL & Higher Oemq=750 mg/dL or greater Laboratory - Chemistry and C hemistry - challengeOrdered By: Denise Reyes on 01-30-2025 AST [Catalytic activity/Vol] 52 U/L High <38 [facility] Lipid Profileon 01-30-2025 CHOL:HDL 3.26 Normal [facility] Comment on above: Order Comment: Order Date: 04/03/25 Order Info: 0786-1 - CMP Order Info: [id number] - LIPID Order Info: 3016-3 - TSH Order Info: 3024-7 - T4F Performed By: #### L 501.9520, L500.4100 #### [facility] [address] [place], [address] Cholesterol [Mass/Vol] 167 mg/dL Normal <=200 [facility] Comment on above: Order Comment: Order Date: 04/03/25 Order Info: 0786-1 - CMP Order Info: [id number] - LIPID Order Info: 3016-3 - TSH Order Info: 3024-7 - T4F Result Comment: Chol esterol level, Desirable <200 mg/dL Borderline high cholesterol 200-239 mg/dL High cholesterol >=240 mg/dL Recommendations of the NCEP Adult Treatment Panel for the following risk-cutoff thresholds for the [place] population. Performed By: #### L 501.9520, L500.4100 #### [facility] [address] [place], [address] Cholesterol in HDL [Mass/Vol] 51 mg/dL Normal [facility] Comment on above: Order Comment: Order Date: 04/03/25 Order Info: 0786-1 - CMP Order Info: [id number] - LIPID Order Info: 3 - TSH Order Info: 3024-05 - T4F Result Comment: [place] onal Cholesterol Education Program (NCEP) guidelines: <40 mg/dL: Low HDL-cholesterol (major risk factor for CHD) >= 60 mg/dL: High HDL-cholesterol (negative risk factor for CHD) HDL-cholesterol is affected by a number of factors, e.g. smoking, exercise, hormones, sex and age. Performed By: #### L 501.9520, L500.4100 #### [facility] [address] [place], [address] Cholesterol in LDL [Mass/Vol] 23 mg/dL Normal [facility] Comment on above: Order Comment: Order Date: 04/03/25 Order Info: 785-11 - CMP Order Info: - LIPID Order Info: 3 - TSH Order Info: 3024-05 - T4F Result Comment: Bord ydfvzg=663-047 mg/dL Higher Stuh=540 mg/dL or greater Performed By: #### L 501.9520, L500.4100 #### [facility] [address] [place], [address] Cholesterol in VLDL [Mass/Vol] 93 mg/dL High 5-40 [facility] Comment on above: Order Comment: Order Date: 04/03/25 Order Info: 0786- - CMP Order Info: [id number] - LIPID Order Info: 3 - TSH Order Info: 3024-05 - T4F Performed By: #### L 501.9520, L500.4100 #### [facility] [address] [place], [address] Triglyceride [Mass/Vol] 466 mg/dL High [facility] Comment on above: Order Comment: Order Date: 04/03/25 Order Info: 07-1 - CMP Order Info: [id number] - LIPID Order Info: 6-3 - TSH Order Info: 3024-7 - T4F Result Comment: The drugs N-Acetylcysteine and Metamizole may falsely depress this assay. Normal range: <150 mg/dL Borderline High: 150-199 mg/dL High: 200-499 mg/dL Very High: >500 mg/dL Performed By: #### L 501.9520, L500.4100 #### [facility] [place], [id number] MCV (mean corpuscular volume ) determinationOrdered By: Denise Reyes on 01-30-2025 MCV (RBC) [Entitic vol] 91.3 fL 80-94 [facility] Mean corpuscular hemoglobin (MCH) determinationOrdered By: Denise Reyes on 01-30-2025 MCH (RBC) [Entitic mass] 29.1 pg 27.0-32.0 [facility] Mean corpuscular hemoglobin concentration (MCHC) determinationOrdered By: Denise Reyes on 01-30-2025 MCHC (RBC) [Mass/Vol] 31.9 g/dL Low 32-36 [facility] Mean platelet volume determi nationOrdered By: Denise Reyes on 01-30-2025 Platelet mean volume (Bld) [Entitic vol] 9.6 fL 6.2-12.0 [facility] Monocyte percentageOrdered B y: Denise Reyes on 01-30-2025 Monocytes/100 WBC (Bld) 7.2 % 0-10 [facility] Neutrophil percentageOrdered By: Denise Reyes on 01-30-2025 Neutrophils/100 WBC (Bld) 62.2 % 47-70 [facility] Nucleated red blood cell per centageOrdered By: Denise Reyes on 01-30-2025 Nucleated RBC/100 WBC (Bld) [Ratio] 0 % 0-5 [facility] Platelet countOrdered By: Elaine Reyes on 01-30-2025 Platelets (Bld) [#/Vol] 458 10*3/uL High 150-450 [facility] Potassium measurement (mass/ volume)Ordered By: Denise Reyes on 01-30-2025 Potassium (Unsp spec) [Mass/Vol] 4.4 mmol/L 3.3-5.1 [facility] RBC Auto (Bld) [#/Vol]Ordere d By: Denise Reyes on 01-30-2025 RBC (Bld) [#/Vol] 4.71 10*6/uL 4.6-6.2 [facility] Random urine creatinine kain urement (mass/volume)Ordered By: Denise Reyes on 01-30-2025 Creatinine Unsp time (U) [Mass/Vol] 19.40 mg/dL Low 39.00-259.00 [facility] Screening total cholesterol/ high density lipoprotein (HDL) cholesterol ratioOrdered By: Denise Reyes on 01-30-2025 Cholesterol.total/[place] sterol in HDL [Mass ratio] 3.26 {ratio} [facility] Serum creatinine measurement (mass/volume)Ordered By: Denise Reyes on 01-30-2025 Creatinine [Mass/Vol] 0.85 mg/dL 0.70-1.20 [facility] Serum globulin measurementOr dered By: Denise Reyes on 01-30-2025 Globulin (S) [Mass/Vol] 3.4 g/dL 2.2-4.2 [facility] Serum glucose measurement (m ass/volume)Ordered By: Denise Reyes on 01-30-2025 Glucose [Mass/Vol] 543 mg/dL High 70-99 [facility] Comment on above: Critical Result(s) C alled at: 2135 by: WILLIAM GODINEZ TO DR. Emani PEREZ Results read back by same. Serum or plasma alanine lindsey otransferase (ALT) measurementOrdered By: Denise Reyes on 01-30-2025 ALT [Catalytic activity/Vol] 146 U/L High <47 [facility] Serum or plasma albumin kain urement (mass/volume)Ordered By: Denise Reyes on 01-30-2025 Albumin [Mass/Vol] 4.0 g/dL 3.5-5.0 [facility] Serum or plasma albumin/glob ulin mass ratioOrdered By: Denise Reyes on 01-30-2025 Albumin/Globulin [Mass ratio] 1.2 {ratio} 0.9-2.4 [facility] Serum or plasma alkaline buffy sphatase measurementOrdered By: Denise Reyes on 01-30-2025 ALP [Catalytic activity/Vol] 642 U/L High 40-129 [facility] Serum or plasma calcium kain urement (mass/volume)Ordered By: Denise Reyes on 01-30-2025 Calcium [Mass/Vol] 10.3 mg/dL 7.6-11.0 [facility] Serum or plasma cholesterol in HDL measurement (mass/volume)Ordered By: Denise Reyes on 01-30-2025 Cholesterol in HDL [Mass/Vol] 51 mg/dL >40 [facility] Comment on above: National Cholesterol Education Program (NCEP) guidelines:<40 mg/dL: Low HDL-cholesterol (major risk factor for CHD)>= 60 mg/dL: High HDL-cholesterol (negative risk factor for CHD)HDL-cholesterol is affected by a number of factors, e.g. smoking, exercise, hormones, sex and age. Serum or plasma cholesterol measurement (mass/volume)Ordered By: Denise Reyes on 01-30-2025 Cholesterol [Mass/Vol] 167 mg/dL <201 [facility] Comment on above: Cholesterol level, D esirable <200 mg/dLBorderline high cholesterol 200-239 mg/dLHigh cholesterol >=240 mg/dLRecommendations of the NCEP Adult Treatment Panel for the following risk-cutoff thresholds for the [place] population. Serum or plasma urea nitroge n measurement (mass/volume)Ordered By: Denise Reeys on 01-30-2025 Urea nitrogen [Mass/Vol] 24 mg/dL High 4-19 [facility] Sodium levelOrdered By: Denise Reyes on 01-30-2025 Sodium [Moles/Vol] 128 mmol/L Low 133-145 [facility] T4 Free Directon 01-30-2025 T4 FREE DIRECT 1.20 ng/dL Normal 0.76-1.46 [facility] Comment on above: Order Comment: Order Date: 04/03/25 Order Info: [id number] - CMP Order Info: [id number] - LIPID Order Info: [id number] - TSH Order Info: [id number] - T4F Performed By: #### L 501.9520, L500.4100 #### [facility] [address] [place], [place], [id number] T4 freeOrdered By: Denise alonzo on 01-30-2025 Free T4 [Mass/Vol] 1.20 ng/dL 0.76-1.46 [facility] TSH DL <= 0.005 mIU/L QnOrde red By: Denise Reyes on 01-30-2025 TSH Qn 5.500 uIU/mL High 0.300-4.200 [facility] Thyroid Stim Hormone (TSH)on 01-30-2025 TSH 5.500 uIU/mL High 0.300-4.200 [facility] Comment on above: Order Comment: Order Date: 04/03/25 Order Info: [id number] - CMP Order Info: [id number] - LIPID Order Info: [id number] - TSH Order Info: [id number] - T4F Performed By: #### L 501.9520, L500.4100 #### [facility] [address] [place], [place], [address] Total proteinOrdered By: Mina eRyes on 01-30-2025 Protein [Mass/Vol] 7.4 g/dL 5.9-8.4 [facility] Triglycerides measurementOrd ered By: Denise Reyes on 01-30-2025 Triglyceride [Mass/Vol] 466 mg/dL High <199 [facility] Comment on above: The drugs N-Acetylcy steine and Metamizole may falsely depress this assay. Normal range: <150 mg/dLBorderline High: 150-199 mg/dLHigh: 200-499 mg/dLVery High: >500 mg/dL Urine albumin measurement [facility] detection limit of 20 mg/L or less (mass/volume)Ordered By: Denise Reyes on 01-30-2025 Albumin DL <= 20 mg/L (U) [Mass/Vol] 632.0 mg/L NO RANGE EST. [facility] White blood cell (WBC) count Ordered By: Denise Reyes on 01-30-2025 WBC (Bld) [#/Vol] 13.3 10*3/uL High 4.4-11.0 [facility] Hepatitis Panel Acuteon - COMMENT Comment Normal . [facility] Comment on above: Result Comment: Not infected with HCV unless early or acute infection is suspected (which may be delayed in an immunocompromised individual), or other evidence exists to indicate HCV infection. Performed at: - [facility] [id number] Sales And Business Development Manager: Can Calvo PhD, Phone: [phone] Performed By: #### L 501.080 #### [facility] [address] [place], [place], [address] HEP B CORE,IgM Negative Normal Negative [facility] Comment on above: Performed By: #### L 501.080 #### [facility] [address] [place], [address] HEP B SURF AG Negative Normal Negative [facility] Comment on above: Performed By: #### L 501.080 #### [facility] [address] [place], [address] HEP C VIRUS AB Non-Reactive Normal Non Reactive [facility] Comment on above: Performed By: #### L 501.080 #### [facility] [address] [place], [address] HEPATITIS A-IgM Negative Normal Negative [facility] Comment on above: Result Comment: A ne gative anti-HAV IgM result suggests no recent or current HAV infection. Performed By: #### L 501.080 #### [facility] [address] [place], [address] Emergency Department Summary on 12-20-2024 Emergency Department Summary [facility] Medical Records Department [address] [place] [address] Emergency Department Summary 12/20/24 MR#: [id number] Acct: [id number] Name: DANNY HEATH Rep #: [id number] : 1980 44 From: Jorge Alberto Durand [...] advised to come in for further evaluation [facility] Medical History Bipolar disorder Contact dermatitis due to poison los Dextromethorphan use disorder, mild, abuse Diabetes Home Medications ???Medication ???Instructions ???Recorded ???Last Taken ???Type cholecalciferol (vitamin D3) 50 50 mcg PO DAILY 12/24/23 Unknown H istory mcg (2,000 unit) capsule flash glucose scanning reader #1 ea 12/24/23 Unknown Rx (FreeStyle Aniya [facility] [place]) lithium carbonate 450 mg 450 mg PO BID 30 days #60 tabs Unknown History tablet,extended release lurasidone 40 mg tablet (Latuda) 60 mg PO DAILY 01/31/24 Unknown Hi story melatonin 5 mg tablet 5 mg PO HS 01/31/24 Unknown Histor y BD Ultra-Fine Hilary Pen Needle 32 #100 ea 03/24/24 Unknown Rx gauge x 5/32" (pen needle, diabetic) levothyroxine 200 mcg tablet [...] HEENT R (more content not included)... Normal [facility] Abdomen/Pelvis W IV Cont ONL Yon 12-19-2024 Abdomen/Pelvis W IV Cont ONLY [facility] Imaging Services [address] [place] [address] Abdomen/Pelvis W IV Cont ONLY MR#: [id number] Acct: [id number] Name: DANNY HEATH Rep #: [id number] : 1980 M 44 From: Laura Jaramillo MD PCP: Dr. Denise Reyes MD Status: REG ER Study: Abdomen/Pelvis W IV Cont ONLY Date of Exam: Exam# [id number] Ordering Dr: Jorge Alberto Durand DO PROCEDURE: [...] due to cystitis. 2. Cholelithiasis. [facility] CC: Dr. Denise Reyes MD; Jorge Alberto Durand DO [place] Roller: Signed Normal [facility] Absolute lymphocyte countOrd ered By: Denise Reyes on 12-19-2024 Lymphocytes Auto (Unsp spec) [#/Vol] 1.57 10*3/uL 0.83-4.51 [facility] Absolute neutrophil countOrd ered By: Denise Reyes on 12-19-2024 Neutrophils (Bld) [#/Vol] 11.5 10*3/uL High 2.0-7.7 [facility] Acetaminophen (Tylenol) Marce dashawn 12-19-2024 Acetaminophen [Mass/Vol] ug/mL Low 10.0-30.0 [facility] Comment on above: Performed By: #### L 501.8400 ####[facility] [address] [place], [address] Albumin to globulin ratioOrd ered By: Jorge Alberto Durand on 12-19-2024 Albumin/Globulin [Mass ratio] 0.7 {ratio} Low 0.9-2.4 [facility] Albumin to globulin ratioOrd ered By: Denise Reyes on 12-19-2024 Albumin/Globulin [Mass ratio] 0.7 {ratio} Low 0.9-2.4 [facility] Automated lymphocyte count a s percentage of total leukocytesOrdered By: Denise Reyes on 12-19-2024 Lymphocytes/100 WBC Auto (Unsp spec) 10.6 % Low 19-41 [facility] Basophil percentageOrdered B y: Denise Reyes on 12-19-2024 Basophils/100 WBC (Bld) 0.6 % 0-1 [facility] Bilirubin, totalOrdered By: Jorge Alberto Durand on 12-19-2024 Bilirubin [Mass/Vol] 0.50 mg/dL 0.20-1.00 [facility] Comment on above: For patients on eltr ombopag therapy, use of Dimension [place] TBIL is not recommended. Bilirubin, totalOrdered By: Denise Reyes on 12-19-2024 Bilirubin [Mass/Vol] 0.60 mg/dL 0.20-1.00 [facility] Comment on above: For patients on eltr ombopag therapy, use of Dimension [place] TBIL is not recommended. Blood urea nitrogen (BUN)/cr eatinine ratioOrdered By: Jorge Alberto Durand on 12-19-2024 Urea nitrogen/Creatinine [Mass ratio] 33.6 mg/mg High 10-20 [facility] Blood urea nitrogen (BUN)/cr eatinine ratioOrdered By: Denise Reyes on 12-19-2024 Urea nitrogen/Creatinine [Mass ratio] 29.2 mg/mg High 10-20 [facility] CBC W/Diff, Automatedon 12-06 Absolute Lymph 1.57 X10 3/uL Normal 0.83-4.51 [facility] Comment on above: Order Comment: Order Date: 12/19/24Order Info: [id number]- - CBCD Performed By: #### L 506.0400, L501.9985, L501.9520, L500.4100, L100.0100, L500.4050 ####[facility] [address] [place], [address] Absolute Neut 11.5 X10 3/uL High 2.0-7.7 [facility] Comment on above: Order Comment: Order Date: 12/19/24Order Info: 018- - CBCD Performed By: #### L 506.0400, L501.9985, L501.9520, L500.4100, L100.0100, L500.4050 ####[facility] [address] [place], [address] Basophils/100 WBC (Bld) 0.6 % Normal 0-1 [facility] Comment on above: Order Comment: Order Date: 12/19/24Order Info: 0184- - CBCD Performed By: #### L 506.0400, L501.9985, L501.9520, L500.4100, L100.0100, L500.4050 ####[facility] [address] [place], [address] Eosinophils/100 WBC (Bld) 3.9 % Normal 0-5 [facility] Comment on above: Order Comment: Order Date: 12/19/24Order Info: 0184-1 - CBCD Performed By: #### L 506.0400, L501.9985, L501.9520, L500.4100, L100.0100, L500.4050 ####[facility] [address] [place], [place], [address] Erythrocyte distribution width (RBC) [Ratio] 12.2 % Normal 11.6-14.6 [facility] Comment on above: Order Comment: Order Date: 12/19/24Order Info: 0184-1 - CBCD Performed By: #### L 506.0400, L501.9985, L501.9520, L500.4100, L100.0100, L500.4050 ####[facility] [address] [place], [address] Hematocrit (Bld) [Volume fraction] 44.6 % Normal 40-54 [facility] Comment on above: Order Comment: Order Date: 12/19/24Order Info: 0184-1 - CBCD Performed By: #### L 506.0400, L501.9985, L501.9520, L500.4100, L100.0100, L500.4050 ####[facility] [address] [place], [place], [address] Hemoglobin (Bld) [Mass/Vol] 14.6 g/dL Normal 13.0-16.5 [facility] Comment on above: Order Comment: Order Date: 12/19/24Order Info: 0184-1 - CBCD Performed By: #### L 506.0400, L501.9985, L501.9520, L500.4100, L100.0100, L500.4050 ####[facility] [address] [place], [address] IG% 0.400 Normal 0.0-0.9 [facility] Comment on above: Order Comment: Order Date: 12/19/24Order Info: 0184-1 - CBCD Result Comment: IG% - Immature Granulocytes (promyelocytes, myelocytes and metamyelocytes) > 1% indicates that a LEFT SHIFT is Present. Performed By: #### L 506.0400, L501.9985, L501.9520, L500.4100, L100.0100, L500.4050 ####[facility] [address] [place], [address] Lymphocytes/100 WBC (Bld) 10.6 % Low 19-41 [facility] Comment on above: Order Comment: Order Date: 12/19/24Order Info: 0184-1 - CBCD Performed By: #### L 506.0400, L501.9985, L501.9520, L500.4100, L100.0100, L500.4050 ####[facility] [address] [place], [address] MCH (RBC) [Entitic mass] 31.9 pg Normal 27.0-32.0 [facility] Comment on above: Order Comment: Order Date: 12/19/24Order Info: 018- - CBCD Performed By: #### L 506.0400, L501.9985, L501.9520, L500.4100, L100.0100, L500.4050 ####[facility] [address] [place], [address] MCHC (RBC) [Mass/Vol] 32.7 g/dL Normal 32-36 [facility] Comment on above: Order Comment: Order Date: 12/19/24Order Info: 018-1 - CBCD Performed By: #### L 506.0400, L501.9985, L501.9520, L500.4100, L100.0100, L500.4050 ####[facility] [address] [place], [address] MCV (RBC) [Entitic vol] 97.4 fL High 80-94 [facility] Comment on above: Order Comment: Order Date: 12/19/24Order Info: 018-1 - CBCD Performed By: #### L 506.0400, L501.9985, L501.9520, L500.4100, L100.0100, L500.4050 ####[facility] [address] [place], [address] Monocytes/100 WBC (Bld) 7.3 % Normal 0-10 [facility] Comment on above: Order Comment: Order Date: 12/19/24Order Info: 0184-1 - CBCD Performed By: #### L 506.0400, L501.9985, L501.9520, L500.4100, L100.0100, L500.4050 ####[facility] [address] [place], [address] Neutrophils/100 WBC (Bld) 77.2 % High 47-70 [facility] Comment on above: Order Comment: Order Date: 12/19/24Order Info: 0184-1 - CBCD Performed By: #### L 506.0400, L501.9985, L501.9520, L500.4100, L100.0100, L500.4050 ####[facility] [address] [place], [address] Nucleated RBC (Bld) [#/Vol] 0 10*3/uL Normal 0-5 [facility] Comment on above: Order Comment: Order Date: 12/19/24Order Info: 0184-1 - CBCD Performed By: #### L 506.0400, L501.9985, L501.9520, L500.4100, L100.0100, L500.4050 ####[facility] [address] [place], [address] Platelet mean volume (Bld) [Entitic vol] 9.7 fL Normal 6.2-12.0 [facility] Comment on above: Order Comment: Order Date: 12/19/24Order Info: 0184-1 - CBCD Performed By: #### L 506.0400, L501.9985, L501.9520, L500.4100, L100.0100, L500.4050 ####[facility] [address] [place], [address] Platelets (Bld) [#/Vol] 546 10*3/uL High 150-450 [facility] Comment on above: Order Comment: Order Date: 12/19/24Order Info: 0184-1 - CBCD Performed By: #### L 506.0400, L501.9985, L501.9520, L500.4100, L100.0100, L500.4050 ####[facility] [address] [place], [address] RBC (Bld) [#/Vol] 4.58 10*6/uL Low 4.6-6.2 [facility] Comment on above: Order Comment: Order Date: 12/19/24Order Info: 0184-1 - CBCD Performed By: #### L 506.0400, L501.9985, L501.9520, L500.4100, L100.0100, L500.4050 ####[facility] [address] [place], [address] RDW SD 43.9 fl Normal 35.1-43.9 [facility] Comment on above: Order Comment: Order Date: 12/19/24Order Info: 0184-1 - CBCD Performed By: #### L 506.0400, L501.9985, L501.9520, L500.4100, L100.0100, L500.4050 ####[facility] [address] [place], [address] WBC (Bld) [#/Vol] 14.9 10*3/uL High 4.4-11.0 [facility] Comment on above: Order Comment: Order Date: 12/19/24Order Info: 0184-1 - CBCD Performed By: #### L 506.0400, L501.9985, L501.9520, L500.4100, L100.0100, L500.4050 ####[facility] [address] [place], [address] Carbon dioxide measurementOr dered By: Jorge Alberto Durand on 12-19-2024 CO2 [Moles/Vol] 29.0 mmol/L 21.0-32.0 [facility] Carbon dioxide measurementOr dered By: Denise Reyes on 12-19-2024 CO2 [Moles/Vol] 27.0 mmol/L 21.0-32.0 [facility] Chloride measurementOrdered By: Jorge Alberto Durand on 12-19-2024 Chloride [Moles/Vol] 93 mmol/L Low 98-107 [facility] Chloride measurementOrdered By: Denise Reyes on 12-19-2024 Chloride [Moles/Vol] 90 mmol/L Low 98-107 [facility] Comprehensive Metabolic Prof ilon 12-19-2024 Albumin [Mass/Vol] 3.2 g/dL Normal 3.2-5.0 [facility] Comment on above: Performed By: #### L 500.4050 #### [facility] [address] [place], [address] Albumin/Globulin [Mass ratio] 0.7 {ratio} Low 0.9-2.4 [facility] Comment on above: Performed By: #### L 500.4050 #### [facility] [address] [place], [address] ALK P 977 U/L High 45-117 [facility] Comment on above: Performed By: #### L 500.4050 #### [facility] [address] [place], [address] ALT [Catalytic activity/Vol] 418 U/L High 16-61 [facility] Comment on above: Performed By: #### L 500.4050 #### [facility] [address] [place], [address] AST [Catalytic activity/Vol] 247 U/L High 15-37 [facility] Comment on above: Performed By: #### L 500.4050 #### [facility] [address] [place], [address] Bilirubin [Mass/Vol] 0.50 mg/dL Normal 0.20-1.00 [facility] Comment on above: Result Comment: For patients on eltrombopag therapy, use of Dimension [place] TBIL is not recommended. Performed By: #### L 500.4050 #### [facility] [address] [place], [address] BUN/CRE 33.6 RATIO High 10-20 [facility] Comment on above: Performed By: #### L 500.4050 #### [facility] [address] [place], [address] CA,Total 10.8 mg/dL High 8.5-10.1 [facility] Comment on above: Performed By: #### L 500.4050 #### [facility] [address] [place], [address] Chloride [Moles/Vol] 93 mmol/L Low 98-107 [facility] Comment on above: Performed By: #### L 500.4050 #### [facility] [address] [place], [address] CO2 [Moles/Vol] 29.0 mmol/L Normal 21.0-32.0 [facility] Comment on above: Performed By: #### L 500.4050 #### [facility] [address] [place], [address] Creatinine [Mass/Vol] 0.86 mg/dL Normal 0.70-1.30 [facility] Comment on above: Result Comment: The validity of the calculated GFR GFRAA in patients over 70 years has not been determined. Clinical correlation is essential. Performed By: #### L 500.4050 #### [facility] [address] [place], [address] ECRCL 115.54 ml/min Normal [facility] Comment on above: Performed By: #### L 500.4050 #### [facility] [address] [place], [place], [address] EST GFR - AA 125 mL/min Normal >60 [facility] Comment on above: Result Comment: Afri can [place] GFR Calc Performed By: #### L 500.4050 #### [facility] [address] [place], [address] GAP 6 Normal 5-15 [facility] Comment on above: Performed By: #### L 500.4050 #### [facility] [address] [place], [address] GFR/1.73 sq M.predicted among non-blacks MDRD (S/P/Bld) [Vol rate/Area] 103 mL/min/{1.73_m2} Normal >60 [facility] Comment on above: Result Comment: Non- GFR Calc Performed By: #### L 500.4050 #### [facility] [address] [place], [address] Globulin (S) [Mass/Vol] 4.4 g/dL High 2.2-4.2 [facility] Comment on above: Performed By: #### L 500.4050 #### [facility] [address] [place], [address] Glucose [Mass/Vol] 487 mg/dL Invalid Interpretation Code 74-106 [facility] Comment on above: Result Comment: Crit ical Result(s) Called at: 22:36:41 12/19/2024 by: WILLIAM MATUTE. Results read back by same. Glucose result greater than or equal to 200 mg/dL suggests DIABETES MELLITUS per A.D.A. criteria. Performed By: #### L 500.4050 #### [facility] [address] [place], [address] Potassium [Moles/Vol] 4.5 mmol/L Normal 3.5-5.1 [facility] Comment on above: Performed By: #### L 500.4050 #### [facility] [address] [place], [address] Sodium [Moles/Vol] 128 mmol/L Low 136-145 [facility] Comment on above: Performed By: #### L 500.4050 #### [facility] [address] [place], [address] T PROT 7.6 g/dL Normal 6.4-8.2 [facility] Comment on above: Performed By: #### L 500.4050 #### [facility] [address] [place], [address] Urea nitrogen [Mass/Vol] 29 mg/dL High 7-18 [facility] Comment on above: Performed By: #### L 500.4050 #### [facility] [address] [place], [address] Albumin [Mass/Vol] 3.4 g/dL Normal 3.2-5.0 [facility] Comment on above: Order Comment: Order Date: 12/19/24Order Info: [id number] - CMPOrder Info: [id number] - LIPIDOrder Info: 3 - TSHOrder Info: 7 - T4F Performed By: #### L 506.0400, L501.9985, L501.9520, L500.4100, L100.0100, L500.4050 ####[facility] [address] [place], [address] Albumin/Globulin [Mass ratio] 0.7 {ratio} Low 0.9-2.4 [facility] Comment on above: Order Comment: Order Date: 12/19/24Order Info: [id number] - CMPOrder Info: [id number] - LIPIDOrder Info: [id number] - TSHOrder Info: [id number] - T4F Performed By: #### L 506.0400, L501.9985, L501.9520, L500.4100, L100.0100, L500.4050 ####[facility] [address] [place], [address] ALK P 1080 U/L High 45-117 [facility] Comment on above: Order Comment: Order Date: 12/19/24Order Info: [id number] - CMPOrder Info: [id number] - LIPIDOrder Info: 6-3 - TSHOrder Info: [id number] - T4F Performed By: #### L 506.0400, L501.9985, L501.9520, L500.4100, L100.0100, L500.4050 ####[facility] [address] [place], [address] ALT [Catalytic activity/Vol] 436 U/L High 16-61 [facility] Comment on above: Order Comment: Order Date: 12/19/24Order Info: 86-1 - CMPOrder Info: [id number] - LIPIDOrder Info: 63 - TSHOrder Info: [id number] - T4F Performed By: #### L 506.0400, L501.9985, L501.9520, L500.4100, L100.0100, L500.4050 ####[facility] [address] [place], [address] AST [Catalytic activity/Vol] 274 U/L High 15-37 [facility] Comment on above: Order Comment: Order Date: 12/19/24Order Info: [id number] - CMPOrder Info: [id number] - LIPIDOrder Info: [id number] - TSHOrder Info: [id number] - T4F Performed By: #### L 506.0400, L501.9985, L501.9520, L500.4100, L100.0100, L500.4050 ####[facility] [address] [place], [address] Bilirubin [Mass/Vol] 0.60 mg/dL Normal 0.20-1.00 [facility] Comment on above: Order Comment: Order Date: 12/19/24Order Info: [id number] - CMPOrder Info: [id number] - LIPIDOrder Info: [id number] - TSHOrder Info: 3024-7 - T4F Result Comment: For patients on eltrombopag therapy, use of Dimension [place] TBIL is not recommended. Performed By: #### L 506.0400, L501.9985, L501.9520, L500.4100, L100.0100, L500.4050 ####[facility] [address] [place], [address] BUN/CRE 29.2 RATIO High 10-20 [facility] Comment on above: Order Comment: Order Date: 12/19/24Order Info: 07-1 - CMPOrder Info: [id number] - LIPIDOrder Info: 3 - TSHOrder Info: [id number] - T4F Performed By: #### L 506.0400, L501.9985, L501.9520, L500.4100, L100.0100, L500.4050 ####[facility] [address] [place], [address] CA,Total 11.5 mg/dL High 8.5-10.1 [facility] Comment on above: Order Comment: Order Date: 12/19/24Order Info: [id number] - CMPOrder Info: [id number] - LIPIDOrder Info: 3 - TSHOrder Info: [id number] - T4F Performed By: #### L 506.0400, L501.9985, L501.9520, L500.4100, L100.0100, L500.4050 ####[facility] [address] [place], [address] Chloride [Moles/Vol] 90 mmol/L Low 98-107 [facility] Comment on above: Order Comment: Order Date: 12/19/24Order Info: [id number] - CMPOrder Info: [id number] - LIPIDOrder Info: [id number] - TSHOrder Info: [id number] - T4F Performed By: #### L 506.0400, L501.9985, L501.9520, L500.4100, L100.0100, L500.4050 ####[facility] [address] [place], [address] CO2 [Moles/Vol] 27.0 mmol/L Normal 21.0-32.0 [facility] Comment on above: Order Comment: Order Date: 12/19/24Order Info: 86-1 - CMPOrder Info: [id number] - LIPIDOrder Info: [id number] - TSHOrder Info: [id number] - T4F Performed By: #### L 506.0400, L501.9985, L501.9520, L500.4100, L100.0100, L500.4050 ####[facility] [address] [place], [address] Creatinine [Mass/Vol] 0.99 mg/dL Normal 0.70-1.30 [facility] Comment on above: Order Comment: Order Date: 12/19/24Order Info: 785- - CMPOrder Info: - LIPIDOrder Info: [id number] - TSHOrder Info: [id number] - T4F Result Comment: The validity of the calculated GFR GFRAA in patients over 70 years has not been determined. Clinical correlation is essential. Performed By: #### L 506.0400, L501.9985, L501.9520, L500.4100, L100.0100, L500.4050 ####[facility] [address] [place], [address] EST GFR - AA 106 mL/min Normal >60 [facility] Comment on above: Order Comment: Order Date: 12/19/24Order Info: [id number] - CMPOrder Info: [id number] - LIPIDOrder Info: [id number] - TSHOrder Info: [id number] - T4F Result Comment: Afri can [place] GFR Calc Performed By: #### L 506.0400, L501.9985, L501.9520, L500.4100, L100.0100, L500.4050 ####[facility] [address] [place], [place], [address] GAP 6 Normal 5-15 [facility] Comment on above: Order Comment: Order Date: 12/19/24Order Info: [id number] - CMPOrder Info: [id number] - LIPIDOrder Info: 3 - TSHOrder Info: 7 - T4F Performed By: #### L 506.0400, L501.9985, L501.9520, L500.4100, L100.0100, L500.4050 ####[facility] [address] [place], [place], [id number] GFR/1.73 sq M.predicted among non-blacks MDRD (S/P/Bld) [Vol rate/Area] 88 mL/min/{1.73_m2} Normal >60 [facility] Comment on above: Order Comment: Order Date: 12/19/24Order Info: 785- - CMPOrder Info: - LIPIDOrder Info: [id number] - TSHOrder Info: 302-7 - T4F Result Comment: Non- GFR Calc Performed By: #### L 506.0400, L501.9985, L501.9520, L500.4100, L100.0100, L500.4050 ####[facility] [address] [place], [place], [id number] Globulin (S) [Mass/Vol] 4.6 g/dL High 2.2-4.2 [facility] Comment on above: Order Comment: Order Date: 12/19/24Order Info: 07- - CMPOrder Info: [id number] - LIPIDOrder Info: 3 - TSHOrder Info: [id number] - T4F Performed By: #### L 506.0400, L501.9985, L501.9520, L500.4100, L100.0100, L500.4050 ####[facility] [address] [place], [address] Glucose [Mass/Vol] 525 mg/dL Invalid Interpretation Code 74-106 [facility] Comment on above: Order Comment: Order Date: 12/19/24Order Info: 785- - CMPOrder Info: [id number] - LIPIDOrder Info: 3 - TSHOrder Info: 7 - T4F Result Comment: Crit ical Result(s) Called at: 20:01:48 12/19/2024 by: WILLIAM GODINEZ TO DR. ANA DAO. Results read back by same. Glucose result greater than or equal to 200 mg/dL suggests DIABETES MELLITUS per A.D.A. criteria. Performed By: #### L 506.0400, L501.9985, L501.9520, L500.4100, L100.0100, L500.4050 ####[facility] [address] [place], [address] Potassium [Moles/Vol] 5.2 mmol/L High 3.5-5.1 [facility] Comment on above: Order Comment: Order Date: 12/19/24Order Info: [id number] - CMPOrder Info: - LIPIDOrder Info: [id number] - TSHOrder Info: [id number] - T4F Performed By: #### L 506.0400, L501.9985, L501.9520, L500.4100, L100.0100, L500.4050 ####[facility] [address] [place], [address] Sodium [Moles/Vol] 124 mmol/L Low 136-145 [facility] Comment on above: Order Comment: Order Date: 12/19/24Order Info: [id number] - CMPOrder Info: - LIPIDOrder Info: 3 - TSHOrder Info: [id number] - T4F Performed By: #### L 506.0400, L501.9985, L501.9520, L500.4100, L100.0100, L500.4050 ####[facility] [address] [place], [place], [address] T PROT 8.0 g/dL Normal 6.4-8.2 [facility] Comment on above: Order Comment: Order Date: 12/19/24Order Info: [id number] - CMPOrder Info: [id number] - LIPIDOrder Info: [id number] - TSHOrder Info: 3024-7 - T4F Performed By: #### L 506.0400, L501.9985, L501.9520, L500.4100, L100.0100, L500.4050 ####[facility] [address] [place], [address] Urea nitrogen [Mass/Vol] 29 mg/dL High 7-18 [facility] Comment on above: Order Comment: Order Date: 12/19/24Order Info: [id number] - CMPOrder Info: [id number] - LIPIDOrder Info: 63 - TSHOrder Info: [id number] - T4F Performed By: #### L 506.0400, L501.9985, L501.9520, L500.4100, L100.0100, L500.4050 ####[facility] [address] [place], [place], [id number] Direct serum free thyroxine (FT4) measurementOrdered By: Denise Reyes on 12-19-2024 Free T4 [Mass/Vol] 1.06 ng/dL 0.76-1.46 [facility] Eosinophil percentageOrdered By: Denise Reyes on 12-19-2024 Eosinophils/100 WBC (Bld) 3.9 % 0-5 [facility] Erythrocyte distribution wid th ratioOrdered By: Denise Reyes on 12-19-2024 Erythrocyte distribution width (RBC) [Ratio] 12.2 % 11.6-14.6 [facility] Erythrocyte distribution wid th standard deviationOrdered By: Denise Reyes on 12-19-2024 Erythrocyte distribution width (RBC) [Ratio] 43.9 fl 35.1-43.9 [facility] Gallbladderon 12-19-2024 Gallbladder [facility] [address] [place], [place] [address] Gallbladder MR#: [id number] Acct: [id number] Name: DANNY HEATH Rep #: [id number] : 1980 M 44 From: Laura Jaramillo MD PCP: Dr. Denise Reyes MD Status: REG ER Study: Gallbladder Date of Exam: 12/19/24 Exam# [id number] Ordering Dr: Jorge Alberto Durand DO PROCEDURE: [...] Cholelithiasis. 2. No acute abnormality. [facility]: Dr. Denise Reyes MD; Jorge Alberto Durand DO Cold Strip Roller: Signed Normal [facility] Glomerular filtration rate ( GFR) estimationOrdered By: Jorge Alberto Durand on 12-19-2024 GFR/1.73 sq M.predicted among non-blacks MDRD (S/P/Bld) [Vol rate/Area] 103 mL/min/{1.73_m2} >60 [facility] Comment on above: Non- GFR Calc Glomerular filtration rate ( GFR) estimationOrdered By: Denise Reyes on 12-19-2024 GFR/1.73 sq M.predicted among non-blacks MDRD (S/P/Bld) [Vol rate/Area] 88 mL/min/{1.73_m2} >60 [facility] Comment on above: Non- GFR Calc Glucose measurementOrdered B y: Jorge Alberto Durand on 12-19-2024 Glucose [Mass/Vol] 487 mg/dL High 74-106 [facility] Comment on above: Critical Result(s) C alled at: 22:36:41 12/19/2024 by: WILLIAM GODINEZ TO SUKUMAR MATUTE. Results read back by same.Glucose result greater than or equal to 200 mg/dLsuggests DIABETES MELLITUS per A.D.A. criteria. Glucose measurementOrdered B y: Denise Reyes on 12-19-2024 Glucose [Mass/Vol] 525 mg/dL High 74-106 [facility] Comment on above: Critical Result(s) C alled at: 20:01:48 12/19/2024 by: WILLIAM GODINEZ TO DR. ANA DAO. Results read back by same.Glucose result greater than or equal to 200 mg/dLsuggests DIABETES MELLITUS per A.D.A. criteria. Hematocrit Auto (Bld) [Volum e fraction]Ordered By: Denise Reyes on 12-19-2024 Hematocrit (Bld) [Volume fraction] 44.6 % 40-54 [facility] Hemoglobin A1con 12-19-2024 HbA1c (Bld) [Mass fraction] 10.2 % [facility] 3.8-5.6 [facility] Comment on above: Order Comment: Order Date: 12/19/24Order Info: [id number] - A1C Result Comment: Norm al < 5.7 % Prediabetic 5.7 - 6.4 % Diabetic >or= 6.5 % Please note range changes. Performed By: #### L 506.0400, L501.9985, L501.9520, L500.4100, L100.0100, L500.4050 ####[facility] [address] [place], [address] Hemoglobin A1c percentageOrd ered By: Denise Reyes on 12-19-2024 HbA1c (Bld) [Mass fraction] 10.2 % High 3.8-5.6 [facility] Comment on above: Normal < 5.7 % Predi abetic 5.7 - 6.4 % Diabetic >or= 6.5 % Please note range changes. Hemoglobin measurementOrdere d By: Denise Reyes on 12-19-2024 Hemoglobin (Bld) [Mass/Vol] 14.6 g/dL 13.0-16.5 [facility] High density lipoprotein (HD L) measurementOrdered By: Denise Reyes on 12-19-2024 Cholesterol in HDL [Mass/Vol] 64 mg/dL >40 [facility] Comment on above: The drugs N-Acetylcy steine and Metamizole may falsely depress this assay. Reference Range HDL <40 mg/dL Low HDL Cholesterol HDL >or= 60 mg/dL High HDL Cholesterol Immature granulocytes/100 WB C Auto (Bld)Ordered By: Denise Reyes on 12-19-2024 Immature granulocytes/100 WBC (Bld) 0.400 % 0.0-0.9 [facility] Comment on above: IG% - Immature Granu locytes (promyelocytes, myelocytes and metamyelocytes) > 1% indicates that a LEFT SHIFT is Present. Laboratory - Chemistry and C hemistry - challengeOrdered By: Jorge Alberto Durand on 12-19-2024 AST [Catalytic activity/Vol] 247 U/L High 15-37 [facility] - Chemistry and C hemistry - challengeOrdered By: Denise Reyes on 12-19-2024 AST [Catalytic activity/Vol] 274 U/L High 15-37 [facility] Lipaseon 12-19-2024 Lipase [Catalytic activity/Vol] 88 U/L Normal 73-393 [facility] Comment on above: Performed By: #### L 501.080 #### [facility] [address] [place] [address], [address] Lipase measurementOrdered By : Jorge Alberto Durand on 12-19-2024 Lipase [Catalytic activity/Vol] 88 U/L 73-393 [facility] Lipid Profileon 12-19-2024 Cholesterol [Mass/Vol] 220 mg/dL High 200 [facility] Comment on above: Order Comment: Order Date: 12/19/24Order Info: [id number] - CMPOrder Info: [id number] - LIPIDOrder Info: [id number] - TSHOrder Info: [id number] - T4F Result Comment: <200 mg/dL Desirable 200-240 mg/dL Borderline >240 mg/dL High Risk Performed By: #### L 506.0400, L501.9985, L501.9520, L500.4100, L100.0100, L500.4050 ####[facility] [address] [place], [address] Cholesterol in HDL [Mass/Vol] 64 mg/dL Normal [facility] Comment on above: Order Comment: Order Date: 12/19/24Order Info: [id number] - CMPOrder Info: [id number] - LIPIDOrder Info: 63 - TSHOrder Info: 3027 - T4F Result Comment: The drugs N-Acetylcysteine and Metamizole may falsely depress this assay. Reference Range HDL <40 mg/dL Low HDL Cholesterol HDL >or= 60 mg/dL High HDL Cholesterol Performed By: #### L 506.0400, L501.9985, L501.9520, L500.4100, L100.0100, L500.4050 ####[facility] [address] [place], [place], [phone]) LDL TNP Normal 0-130 [facility] Comment on above: Order Comment: Order Date: 12/19/24Order Info: [id number] - CMPOrder Info: [id number] - LIPIDOrder Info: 3 - TSHOrder Info: 7 - T4F Performed By: #### L 506.0400, L501.9985, L501.9520, L500.4100, L100.0100, L500.4050 ####[facility] [address] [place], [address] Triglyceride [Mass/Vol] 481 mg/dL High [facility] Comment on above: Order Comment: Order Date: 12/19/24Order Info: [id number] - CMPOrder Info: [id number] - LIPIDOrder Info: 63 - TSHOrder Info: [id number] - T4F Result Comment: The drugs N-Acetylcysteine and Metamizole may falsely depress this assay. TRIGLYCERIDE IS GREATER THAN 400 mg/dL. LDL RESULT IS INVALID AND WILL NOT BE REPORTED. Serum Triglycerides Reference Interval Normal <150 mg/dL Borderline high 150 - 199 mg/dL High 200 - 499 mg/dL Very High > or = 500 mg/dL Performed By: #### L 506.0400, L501.9985, L501.9520, L500.4100, L100.0100, L500.4050 ####[facility] [address] [place], [address] VLDL TNP Normal 5-40 [facility] Comment on above: Order Comment: Order Date: 12/19/24Order Info: [id number] - CMPOrder Info: [id number] - LIPIDOrder Info: [id number] - TSHOrder Info: [id number] - T4F Performed By: #### L 506.0400, L501.9985, L501.9520, L500.4100, L100.0100, L500.4050 ####[facility] [address] [place], [address] Lithiumon 12-19-2024 LI 1.00 mmol/L Normal 0.60-1.20 [facility] Comment on above: Result Comment: Mode rate Hemolysis, Result may be falsely increased. Performed By: #### L 501.9520, L500.4100 #### [facility] [address] [place], [address] Low density lipoprotein (LDL ) cholesterol measurementOrdered By: Denise Reyes on 12-19-2024 Low density lipoprotein (LDL) cholesterol measurement TNP [facility] Comment on above: Test not performed MCV (mean corpuscular volume ) determinationOrdered By: Denise Reyes on 12-19-2024 MCV (RBC) [Entitic vol] 97.4 fL High 80-94 [facility] Mean corpuscular hemoglobin (MCH) determinationOrdered By: Denise Reyes on 12-19-2024 MCH (RBC) [Entitic mass] 31.9 pg 27.0-32.0 [facility] Mean corpuscular hemoglobin concentration (MCHC) determinationOrdered By: Denise Reyes on 12-19-2024 MCHC (RBC) [Mass/Vol] 32.7 g/dL 32-36 [facility] Mean platelet volume determi nationOrdered By: Denise Reyes on 12-19-2024 Platelet mean volume (Bld) [Entitic vol] 9.7 fL 6.2-12.0 [facility] Monocyte percentageOrdered B y: Denise Reyes on 12-19-2024 Monocytes/100 WBC (Bld) 7.3 % 0-10 [facility] Neutrophil percentageOrdered By: Denise Reyes on 12-19-2024 Neutrophils/100 WBC (Bld) 77.2 % High 47-70 [facility] No Panel InformationOrdered By: Jorge Alberto Durand on 12-19-2024 Hepatitis C Antibody Comment Comment . [facility] Comment on above: Not infected with HC V unless early or acute infection issuspected (which may be delayed in an immunocompromisedindividual), or other evidence exists to indicate HCVinfection.Performed at: [facility] [id number] Director: Can Calvo PhD, Phone: [phone] Nucleated red blood cell per centageOrdered By: Denise Reyes on 12-19-2024 Nucleated RBC/100 WBC (Bld) [Ratio] 0 % 0-5 [facility] Platelet countOrdered By: Elaine Reyes on 12-19-2024 Platelets (Bld) [#/Vol] 546 10*3/uL High 150-450 [facility] Potassium measurementOrdered By: Jorge Alberto Durand on 12-19-2024 Potassium [Moles/Vol] 4.5 mmol/L 3.5-5.1 [facility] Potassium measurementOrdered By: Denise Reyes on 12-19-2024 Potassium [Moles/Vol] 5.2 mmol/L High 3.5-5.1 [facility] RBC Auto (Bld) [#/Vol]Ordere d By: Denise Reyes on 12-19-2024 RBC (Bld) [#/Vol] 4.58 10*6/uL Low 4.6-6.2 [facility] Serum anion gap measurementO rdered By: Jorge Alberto Durand on 12-19-2024 Anion gap [Moles/Vol] 6 mmol/L 03-19 [facility] Serum anion gap measurementO rdered By: Denise Reyes on 12-19-2024 Anion gap [Moles/Vol] 6 mmol/L 03-19 [facility] Serum globulin measurementOr dered By: Jorge Alberto Durand on 12-19-2024 Globulin (S) [Mass/Vol] 4.4 g/dL High 2.2-4.2 [facility] Serum globulin measurementOr dered By: Denise Reyes on 12-19-2024 Globulin (S) [Mass/Vol] 4.6 g/dL High 2.2-4.2 [facility] Serum or plasma acetaminophe n measurement (mass/volume)Ordered By: Jorge Alberto Durand on 12-19-2024 Acetaminophen [Mass/Vol] ug/mL Low 10.0-30.0 [facility] Serum or plasma alanine lindsey otransferase (ALT) measurementOrdered By: Jorge Alberto Durand on 12-19-2024 ALT [Catalytic activity/Vol] 418 U/L High 1661 [facility] Serum or plasma alanine lindsey otransferase (ALT) measurementOrdered By: Denise Reyes on 12-19-2024 ALT [Catalytic activity/Vol] 436 U/L High 16-61 [facility] Serum or plasma albumin kani urement (mass/volume)Ordered By: Jorge Alberto Durand on 12-19-2024 Albumin [Mass/Vol] 3.2 g/dL 3.2-5.0 [facility] Serum or plasma albumin kain urement (mass/volume)Ordered By: Denise Reyes on 12-19-2024 Albumin [Mass/Vol] 3.4 g/dL 3.2-5.0 [facility] Serum or plasma alkaline buffy sphatase measurementOrdered By: Jorge Alberto Durand on 12-19-2024 ALP [Catalytic activity/Vol] 977 U/L High 45-117 [facility] Serum or plasma alkaline buffy sphatase measurementOrdered By: Denise Reyes on 12-19-2024 ALP [Catalytic activity/Vol] 1080 U/L High 45-117 [facility] Serum or plasma calcium kain urement (mass/volume)Ordered By: Jorge Alberto Durand on 12-19-2024 Calcium [Mass/Vol] 10.8 mg/dL High 8.5-10.1 [facility] Serum or plasma calcium kain urement (mass/volume)Ordered By: Denise Reyes on 12-19-2024 Calcium [Mass/Vol] 11.5 mg/dL High 8.5-10.1 [facility] Serum or plasma cholesterol measurement (mass/volume)Ordered By: Denise Reyes on 12-19-2024 Cholesterol [Mass/Vol] 220 mg/dL High <200 [facility] Comment on above: <200 mg/dL Desirable 200-240 mg/dL Borderline >240 mg/dL High Risk Serum or plasma creatinine m easurement (mass/volume)Ordered By: Jorge Alberto Durand on 12-19-2024 Creatinine [Mass/Vol] 0.86 mg/dL 0.70-1.30 [facility] Comment on above: The validity of the calculated GFR & GFRAA in patients over 70 years has not been determined. Clinical correlation is essential. Serum or plasma creatinine m easurement (mass/volume)Ordered By: Denise Reyes on 12-19-2024 Creatinine [Mass/Vol] 0.99 mg/dL 0.70-1.30 [facility] Comment on above: The validity of the calculated GFR & GFRAA in patients over 70 years has not been determined. Clinical correlation is essential. Serum or plasma hepatitis B virus surface antigen detection by immunoassayOrdered By: Jorge Alberto Durand on 12-19-2024 HBV surface Ag IA Ql Negative Negative [facility] Serum or plasma thyroid stim ulating hormone (TSH) measurement (units/volume)Ordered By: Denise Reyes on 12-19-2024 TSH Qn 2.940 uIU/mL 0.358-3.740 [facility] Serum or plasma urea nitroge n measurement (mass/volume)Ordered By: Jorge Alberto Durand on 12-19-2024 Urea nitrogen [Mass/Vol] 29 mg/dL High 05-22 [facility] Serum or plasma urea nitroge n measurement (mass/volume)Ordered By: Denise Reyes on 12-19-2024 Urea nitrogen [Mass/Vol] 29 mg/dL High 05-22 [facility] Sodium levelOrdered By: Aleksandar Durand on 12-19-2024 Sodium [Moles/Vol] 128 mmol/L Low 136-145 [facility] Sodium levelOrdered By: Denise Reyes on 12-19-2024 Sodium [Moles/Vol] 124 mmol/L Low 136-145 [facility] T4 Free Directon 12-19-2024 T4 FREE DIRECT 1.06 ng/dL Normal 0.76-1.46 [facility] Comment on above: Order Comment: Order Date: 12/19/24Order Info: [id number] - CMPOrder Info: [id number] - LIPIDOrder Info: [id number] - TSHOrder Info: [id number] - T4F Performed By: #### L 506.0400, L501.9985, L501.9520, L500.4100, L100.0100, L500.4050 ####[facility] [address] [place], [place], [id number] Thyroid Stim Hormone (TSH)on 12-19-2024 TSH 2.940 uIU/mL Normal 0.358-3.740 [facility] Comment on above: Order Comment: Order Date: 12/19/24Order Info: [id number] - CMPOrder Info: [id number] - LIPIDOrder Info: [id number] - TSHOrder Info: [id number] - T4F Performed By: #### L 506.0400, L501.9985, L501.9520, L500.4100, L100.0100, L500.4050 ####[facility] [address] [place], [place], [phone] Total proteinOrdered By: Omar Durand on 12-19-2024 Protein [Mass/Vol] 7.6 g/dL 6.4-8.2 [facility] Total proteinOrdered By: Mina Reyes on 12-19-2024 Protein [Mass/Vol] 8.0 g/dL 6.4-8.2 [facility] Triglycerides measurementOrd ered By: Denise Reyes on 12-19-2024 Triglyceride [Mass/Vol] 481 mg/dL High <199 [facility] Comment on above: The drugs N-Acetylcy [...] WBC (Bld) [#/Vol] 14.9 10*3/uL High 4.4-11.0 [facility] Gastric Emptying Studyon Gastric Emptying Study [facility] [address] [place] [address] Gastric Emptying Study MR#: [id number] Acct: [id number] Name: DANNY HEATH Rep #: [id number] : 1980 M 44 From: Ezequiel Hawley PCP: Dr. Denise Reyes MD Status: REG CLI Study: Gastric Emptying Study Date of Exam: 11/13/24 Exam# [id number] Ordering Dr: Denise Reyes MD [id number] CLINICAL: 44-year-old diabetic male with history of [...] phase gastric emptying compared to normal controls. (Aldo, J Nucl Med Tech 38: 186, 2010). Electronically Signed: Ezequiel King DO at 9:18 EST , CC: Dr. Denise Reyes MD Cold Strip Roller: Signed Senait [facility] [id number] 10-13-2024 [id number] HNO ID: [id number] Author: NEHA DRIVER PT Service: ? Author Type: Physical Therapist Type: [id number] Filed: 10/13/2024 10:44 Note Text: [facility] Physical Therapy Plan of Care Certification Patient Name: Danny Heath : 1980 [facility] #: [id number] Date: 10/13/2024 To: Denise Reyes MD From [...] included: Therapeutic exercise, Neuromuscular re-education, Therapeutic activities, Self-mcfp management, and Gait training. Goals for Episode of Care: established 07/30/24 Goals updated on 09/01/2024. Goals updated on 10/13/2024. Canalou in home exercise program.-- MET Patient will [...] reviewed the treatment plan for Danny Heath, [facility]# [id number] for the period of 10/13/24 -- 10/13/24, established on 10/13/2024. Signature certifies the need for therapy services. [facility] CNTHERAPYon 10-13-2024 CNTHERAPY OT/PT/Speech Visit (PTWS) DANNY HEATH ([id number]) 1980 M Date Time Provider Department 10/13/24 10:15 AM NEHA DRIVER Date Time Provider Department [place] 10/13/2024 10:15 AM [id number] DRIVER Reason for Visit: PT Discharge [752] Primary Visit Diagnosis:Weakness of left lower extremity [R29.898] Allergies As of Date: 10/13/2024 (Not on File) Date Reviewed: Never Reviewed Letter Text [facility] Hemoglobin A1con 10-10-2024 HbA1c (Bld) [Mass fraction] 9.0 % High 3.8-5.6 [facility] Comment on above: Order Comment: Order Date: 10/10/24Order Info: [id number] - A1C Result Comment: Norm al < 5.7 % Prediabetic 5.7 - 6.4 % Diabetic >or= 6.5 % Please note range changes. Performed By: #### L 501.080 #### [facility] [address] [place], [address] T4 Free Directon 10-10-2024 T4 FREE DIRECT 0.97 ng/dL Normal 0.76-1.46 [facility] Comment on above: Order Comment: Order Date: 10/10/24Order Info: [id number] - [id number] LABS ONLY PER PT Performed By: #### L 501.080 #### [facility] [place], [address] CNTHERAPYon 10-06-2024 CNTHERAPY OT/PT/Speech Visit (PTWS) DANNY HEATH ([id number]) 1980 M Date Time Provider Department 10/06/24 10:15 AM NEHA DRIVER Date Time Provider Department Center 10/06/2024 10:15 AM [id number] SINGH Reason for Visit: Physical Therapy [503] Primary Visit Diagnosis:Weakness of left lower extremity [R29.898] Allergies As of Date: 10/06/2024 (Not on File) Date Reviewed: Never Reviewed [facility] CNTHERAPYon 2024 CNTHERAPY OT/PT/Speech Visit (PTWS) DANNY HEATH ([id number]) 1980 M Date Time Provider Department 09/29/24 11:00 AM HANNAH LEGER Date Time Provider Department Center 2024 11:00 AM [id number] BENNETT Reason for Visit: Physical Therapy [503] Primary Visit Diagnosis:Weakness of left lower extremity [R29.898] Allergies As of Date: 2024 (Not on File) Date Reviewed: Never Reviewed [facility] CNTHERAPYon 09-22-2024 CNTHERAPY OT/PT/Speech Visit (PTWS) DANNY HEATH ([id number]) 1980 M Date Time Provider Department 09/22/24 11:15 AM SEBASTIAN MARROQUIN Date Time Provider Department Center 09/22/2024 11:15 AM [id number] HOPKINS Reason for Visit: Physical Therapy [503] Primary Visit Diagnosis:Weakness of left lower extremity [R29.898] Allergies As of Date: 09/22/2024 (Not on File) Date Reviewed: Never Reviewed [facility] CNTHERAPYon 09-15-2024 CNTHERAPY OT/PT/Speech Visit (PTWS) DANNY HEATH ([id number]) 1980 M Date Time Provider Department 09/15/24 11:15 AM SEBASTIAN MARROQUIN Date Time Provider Department Center 09/15/2024 11:15 AM [id number] SERRANO Reason for Visit: Physical Therapy [503] Primary Visit Diagnosis:Weakness of left lower extremity [R29.898] Allergies As of Date: 09/15/2024 (Not on File) Date Reviewed: Never Reviewed Director [employer]: Therapy (PT/OT/Speech/Resp) ID: [id number] 09/15/2024 11:46 AM Author: SEBASTIAN MARROQUIN Signed by SEBASTIAN MARROQUIN PT, DPT on 09/15/2024 at 11:46 AM Document text: Program_ID:[id number] Access Code: [email or web address] URL: [email or web address] Date: 09-15-2024 Prepared By: Neha Driver Program [...] 3 sets - 10 reps -------- [facility] THERAPY NTon 09-15-2024 THERAPY NT HNO ID: [id number] Author: SEBASTIAN MARROQUIN, PT, DPT Service: ? Author Type: Physical Therapist Type: Therapy (PT/OT/Speech/Resp) Filed: 09/15/2024 11:46 Note Text: Program_ID:[id number] Access Code: [email or web address] URL: [email or web address] Date: 09-15-2024 Prepared By: Neha Driver Program [...] - 3 sets - 10 reps [facility] CNTHERAPYon 09-08-2024 CNTHERAPY OT/PT/Speech Visit (PTWS) DANNY HEATH ([id number]) 1980 M Date Time Provider Department 09/08/24 12:45 PM SEBASTIAN MARROQUIN PTWS Date Time Provider Department [place] 09/08/2024 12:45 PM [id number], MCKENA PTWS Bekah Hodge Reason for Visit: Physical Therapy [503] Primary Visit Diagnosis:Weakness of left lower extremity [R29.898] Allergies As of Date: 09/08/2024 (Not on File) Date Reviewed: Never Reviewed Director [employer]: Therapy (PT/OT/Speech/Resp) ID: [id number] 09/08/2024 1:23 PM Author: SEBASTIAN MARROQUIN Signed by SEBASTIAN MARROQUIN PT, DPT on 09/08/2024 at 1:23 PM Document text: Program_ID:[id number] Access Code: [email or web address] URL: [email or web address] Date: 09-08-2024 Prepared By: Neha Driver Program [...] 2 sets - 15-20 reps -------- [facility] THERAPY NTon 09-08-2024 THERAPY NT HNO ID: [id number] Author: SEBASTIAN MARROQUIN PT, DPT Service: ? Author Type: Physical Therapist Type: Therapy (PT/OT/Speech/Resp) Filed: 09/08/2024 13:23 Note Text: Program_ID:[id number] Access Code: [email or web address] URL: [email or web address] Date: 09-08-2024 Prepared By: Neha Driver Program [...] - 2 sets - 15-20 reps [facility] [id number] 09-01-2024 [id number] HNO ID: [id number] Author: NEHA DRIVER PT Service: ? Author Type: Physical Therapist Type: [id number] Filed: 09/01/2024 10:48 Note Text: [facility] Physical Therapy Plan of Care Certification Patient Name: Danny Heath : 1980 [facility] #: [id number] Date: 09/01/2024 To: Denise Reyes MD From Therapist: Neha Driver, PT RE: Patient Certification/ Recertification Your review, [...] Care: established 07/30/24 Goals updated on 09/01/2024. [place] in home exercise program.-- PROGRESSING Patient will [...] Patient to be seen for Gait Training (68070), Self-mcfp management (82399), Therapeutic activities (01381), Manual therapy (58093), Neuromuscular re-education (15385), Therapeutic exercise (79758) PLAN FOR NEXT VISIT: increase leg press weight For further details regarding this patient refer to the Physical Therapy electronically documented visit dated 09/01/2024. Provider Attestation I have reviewed the treatment plan for Danny Frank Enmanuel, [facility]# [id number] for the period of 09/01/24 -- 10/13/24, established on 09/01/2024. Signature certifies the need for therapy services. [facility] CNTHERAPYon 09-01-2024 CNTHERAPY OT/PT/Speech Visit (PTWS) DANNY HEATH ([id number]) 1980 M Date Time Provider Department 09/01/24 10:15 AM NEHA DRIVER Date Time Provider Department [place] 09/01/2024 10:15 AM [id number] DRIVER Reason for Visit: PT Progress Note [1596] Primary Visit Diagnosis:Weakness of left lower extremity [R29.898] Allergies As of Date: 09/01/2024 (Not on File) Date Reviewed: Never Reviewed Letter Text [facility] CNTHERAPYon 08-25-2024 CNTHERAPY OT/PT/Speech Visit (PTWS) DANNY HEATH ([id number]) 1980 M Date Time Provider Department 08/25/24 10:15 AM NEHA DRIVER PTWS Date Time Provider Department [place] 08/25/2024 10:15 AM [id number] DRIVER PTWS Bekah Hodge Reason for Visit: Physical Therapy [503] Primary Visit Diagnosis:Weakness of left lower extremity [R29.898] Allergies As of Date: 08/25/2024 (Not on File) Date Reviewed: Never Reviewed Director Global Sales: Addendum Therapy (PT/OT/Speech/Resp) ID: [id number] 08/25/2024 10:38 AM Author: NEHA DRIVER Signed by NEHA DRIVER PT on 08/25/2024 at 10:38 AM * * * This document replaces document [id number] * * * Document text: Program_ID:[id number] Access Code: [email or web address] URL: [email or web address] Date: 08-25-2024 Prepared By: Neha Driver Program [...] 1 sets - 3 reps -------- [facility] T4 Free Directon 08-25-2024 T4 FREE DIRECT 1.56 ng/dL High 0.76-1.46 [facility] Comment on above: Order Comment: Order Date: 04/03/25 Order Info: [id number] - CBCD Performed By: #### L 100.0100, L500.4050, L501.9985 #### [facility] [address] [place], [place], [address] THERAPY NTon 08-25-2024 THERAPY NT HNO ID: [id number] Author: NEHA DRIVER, PT Service: ? Author Type: Physical Therapist Type: Therapy (PT/OT/Speech/Resp) Filed: 08/25/2024 10:38 Note Text: Program_ID:[id number] Access Code: [email or web address] URL: [email or web address] Date: 08-25-2024 Prepared By: Neha Driver Program [...] - 1 sets - 3 reps [facility] Thyroid Stim Hormone (TSH)on 08-25-2024 TSH 1.240 uIU/mL Normal 0.358-3.740 [facility] Comment on above: Order Comment: Order Date: 04/03/25 Order Info: [id number] - CBCD Performed By: #### L 100.0100, L500.4050, L501.9985 #### [facility] [address] [place], [place], [address] CBC W/Diff, Automatedon 08-05 Absolute Lymph 1.70 X10 3/uL Normal 0.83-4.51 [facility] Comment on above: Performed By: #### L 501.9520, L500.4100 #### [facility] [address] [place], [address] Absolute Neut 5.8 X10 3/uL Normal 2.0-7.7 [facility] Comment on above: Performed By: #### L 501.9520, L500.4100 #### [facility] [address] [place], [address] Basophils/100 WBC (Bld) 0.8 % Normal 0-1 [facility] Comment on above: Performed By: #### L 501.9520, L500.4100 #### [facility] [address] [place], [address] Eosinophils/100 WBC (Bld) 6.3 % High 0-5 [facility] Comment on above: Performed By: #### L 501.9520, L500.4100 #### [facility] [address] [place], [address] Erythrocyte distribution width (RBC) [Ratio] 13.6 % Normal 11.6-14.6 [facility] Comment on above: Performed By: #### L 501.9520, L500.4100 #### [facility] [address] [place], [address] Hematocrit (Bld) [Volume fraction] 45.8 % Normal 40-54 [facility] Comment on above: Performed By: #### L 501.9520, L500.4100 #### [facility] [address] [place], [address] Hemoglobin (Bld) [Mass/Vol] 14.0 g/dL Normal 13.0-16.5 [facility] Comment on above: Performed By: #### L 501.9520, L500.4100 #### [facility] [address] [place], [address] IG% 1.000 High 0.0-0.9 [facility] Comment on above: Result Comment: IG% - Immature Granulocytes (promyelocytes, myelocytes and metamyelocytes) > 1% indicates that a LEFT SHIFT is Present. Performed By: #### L 501.9520, L500.4100 #### [facility] [address] [place], [address] Lymphocytes/100 WBC (Bld) 19.0 % Normal 19-41 [facility] Comment on above: Performed By: #### L 501.9520, L500.4100 #### [facility] [address] [place], [address] MCH (RBC) [Entitic mass] 28.7 pg Normal 27.0-32.0 [facility] Comment on above: Performed By: #### L 501.9520, L500.4100 #### [facility] [address] [place], [address] MCHC (RBC) [Mass/Vol] 30.6 g/dL Low 32-36 [facility] Comment on above: Performed By: #### L 501.9520, L500.4100 #### [facility] [address] [place], [address] MCV (RBC) [Entitic vol] 93.9 fL Normal 80-94 [facility] Comment on above: Performed By: #### L 501.9520, L500.4100 #### [facility] [address] [place], [address] Monocytes/100 WBC (Bld) 7.7 % Normal 0-10 [facility] Comment on above: Performed By: #### L 501.9520, L500.4100 #### [facility] [address] [place], [address] Neutrophils/100 WBC (Bld) 65.2 % Normal 47-70 [facility] Comment on above: Performed By: #### L 501.9520, L500.4100 #### [facility] [address] [place], [address] Nucleated RBC (Bld) [#/Vol] 0 10*3/uL Normal 0-5 [facility] Comment on above: Performed By: #### L 501.9520, L500.4100 #### [facility] [address] [place], [address] Platelet mean volume (Bld) [Entitic vol] 8.8 fL Normal 6.2-12.0 [facility] Comment on above: Performed By: #### L 501.9520, L500.4100 #### [facility] [address] [place], [address] Platelets (Bld) [#/Vol] 510 10*3/uL High 150-450 [facility] Comment on above: Performed By: #### L 501.9520, L500.4100 #### [facility] [address] [place], [address] RBC (Bld) [#/Vol] 4.88 10*6/uL Normal 4.6-6.2 [facility] Comment on above: Performed By: #### L 501.9520, L500.4100 #### [facility] [address] [place], [address] RDW SD 46.5 fl High 35.1-43.9 [facility] Comment on above: Performed By: #### L 501.9520, L500.4100 #### [facility] [address] [place], [address] WBC (Bld) [#/Vol] 9.0 10*3/uL Normal 4.4-11.0 [facility] Comment on above: Performed By: #### L 501.9520, L500.4100 #### [facility] [address] [place], [address] Hemoglobin A1con 08-22-2024 HbA1c (Bld) [Mass fraction] 11.0 % High 3.8-5.6 [facility] Comment on above: Result Comment: Norm al < 5.7 % Prediabetic 5.7 - 6.4 % Diabetic >or= 6.5 % Please note range changes. Performed By: #### L 100.0100, L500.4050, L501.9985 #### [facility] [address] [place], [address] Lipid Profileon 08-22-2024 Cholesterol [Mass/Vol] 122 mg/dL Normal 200 [facility] Comment on above: Result Comment: <200 mg/dL Desirable 200-240 mg/dL Borderline >240 mg/dL High Risk Performed By: #### L 501.9520, L500.4100 #### [facility] [address] [place], [address] Cholesterol in HDL [Mass/Vol] 47 mg/dL Normal [facility] Comment on above: Result Comment: The drugs N-Acetylcysteine and Metamizole may falsely depress this assay. Reference Range HDL <40 mg/dL Low HDL Cholesterol HDL >or= 60 mg/dL High HDL Cholesterol Performed By: #### L 501.9520, L500.4100 #### [facility] [address] [place], [address] Cholesterol in LDL [Mass/Vol] 45 mg/dL Normal 0-130 [facility] Comment on above: Performed By: #### L 501.9520, L500.4100 #### [facility] [address] [place], [address] Cholesterol in VLDL [Mass/Vol] 30 mg/dL Normal 5-40 [facility] Comment on above: Performed By: #### L 501.9520, L500.4100 #### [facility] [address] [place], [address] Triglyceride [Mass/Vol] 152 mg/dL Normal [facility] Comment on above: Result Comment: The drugs N-Acetylcysteine and Metamizole may falsely depress this assay. Serum Triglycerides Reference Interval Normal <150 mg/dL Borderline high 150 - 199 mg/dL High 200 - 499 mg/dL Very High > or = 500 mg/dL Performed By: #### L 501.9520, L500.4100 #### [facility] [address] [place], [address] Microalb:Creat Ratio,Random URon 08-22-2024 Creatinine [Mass/Vol] 43.60 mg/dL Normal NO RANGE EST. [facility] Comment on above: Performed By: #### L 501.9520, L500.4100 #### [facility] [address] [place], [address] MALB:CRE 147.7 mg/g CRE High <30 mg/g CRE [facility] Comment on above: Performed By: #### L 501.9520, L500.4100 #### [facility] [address] [place], [address] MICROALBUMIN,UR 64.4 mg/L Normal NO RANGE EST. [facility] Comment on above: Performed By: #### L 501.9520, L500.4100 #### [facility] [address] [place], [address] Vitamin D,25 Hydroxyon 08-22 Vitamin D 25-OH 50.4 ng/mL Normal [facility] Comment on above: Result Comment: Bindu min D 25(OH) Status Range Deficiency <20 ng/mL (50nmol/L) Insufficiency 20 - 30 ng/mL (50 - 75 nmol/L) Sufficiency 30 - 100 ng/mL (75 - 250 nmol/L) Toxicity >100 ng/mL (>250 nmol/L) Performed By: #### L 501.9520, L500.4100 #### [facility] [address] [place], [address] CNTHERAPYon 08-11-2024 CNTHERAPY OT/PT/Speech Visit (PTWS) DANNY HEATH ([id number]) 1980 M Date Time Provider Department 08/11/24 8:45 AM NEHA DRIVER PTWS Date Time Provider Department [place] 08/11/2024 8:45 AM [id number] DRIVER PTLANA Hodge Reason for Visit: Physical Therapy [503] Primary Visit Diagnosis:Weakness of left lower extremity [R29.898] Allergies As of Date: 08/11/2024 (Not on File) Date Reviewed: Never Reviewed Director Global Sales: Addendum Therapy (PT/OT/Speech/Resp) ID: [id number] 08/11/2024 9:07 AM Author: NEHA DRIVER Signed by NEHA DRIVER PT on 08/11/2024 at 9:07 AM * * * This document replaces document [id number] * * * Document text: Program_ID:[id number] Access Code: [email or web address] URL: [email or web address] Date: 08-11-2024 Prepared By: Neha Driver Program Notes Exercises - Supine Sciatic Nerve Backus - 2 x daily - 7 x [...] 4 sets - 12 reps -------- [facility] THERAPY NTon 08-11-2024 THERAPY NT HNO ID: [id number] Author: NEHA DRIVER PT Service: ? Author Type: Physical Therapist Type: Therapy (PT/OT/Speech/Resp) Filed: 08/11/2024 09:07 Note Text: Program_ID:[id number] Access Code: [email or web address] URL: [email or web address] Date: 08-11-2024 Prepared By: Neha Driver Program Notes Exercises - Supine Sciatic Nerve Backus - 2 x daily - 7 x [...] - 4 sets - 12 reps [facility] [id number] 07-30-2024 [id number] HNO ID: [id number] Author: NEHA DRIVER PT Service: ? Author Type: Physical Therapist Type: [id number] Filed: 07/30/2024 11:51 Note Text: [facility] Physical Therapy Plan of Care Certification Patient Name: Danny Heath : 1980 [facility] #: [id number] Date: 07/30/2024 To: Denise Reyes MD From [...] Goals for Episode of Care: established 07/30/24 [place] in home exercise program. Patient will decrease [...] Planned: 6 Planned Treatment Interventions: Gait Training (03202), Self-mcfp management (66126), Therapeutic activities (35909), Manual therapy (32961), Neuromuscular re-education (73512), Therapeutic exercise (15898) PLAN FOR NEXT VISIT: Patient demonstrates good understanding of plan of care and treatment. The above goals and plan of care were discussed and agreed upon by patient/family. For further details regarding this patient refer to the Physical Therapy electronically documented visit dated 07/30/2024. Provider Attestation I have reviewed the treatment plan for Danny Heath, [facility]# [id number] for the period of 07/30/24 -- 09/10/24, established on 07/30/2024. Signature certifies the need for therapy services. [facility] CNTHERAPYon 07-30-2024 CNTHERAPY OT/PT/Speech Visit (PTWS) DANNY HEATH ([id number]) 1980 M Date Time Provider Department 07/30/24 11:15 AM NEHA DRIVER PTWS Date Time Provider Department [place] 07/30/2024 11:15 AM [id number] DRIVER PTLANA Hodge Reason for Visit: PT Eval [747] Primary Visit Diagnosis:Weakness of left lower extremity [R29.898] Allergies As of Date: 07/30/2024 (Not on File) Date Reviewed: Never Reviewed Director Global Sales: Therapy (PT/OT/Speech/Resp) ID: [id number] 07/30/2024 11:34 AM Author: NEHA DRIVER Signed by NEHA DRIVER PT on 07/30/2024 at 11:34 AM Document text: Program_ID:[id number] Access Code: [email or web address] URL: [email or web address] Date: 07-30-2024 Prepared By: Neha Driver Program [...] reps -------- Letter Text Letter Text [facility] THERAPY NTon 07-30-2024 THERAPY NT HNO ID: [id number] Author: NEHA DRIVER PT Service: ? Author Type: Physical Therapist Type: Therapy (PT/OT/Speech/Resp) Filed: 07/30/2024 11:34 Note Text: Program_ID:[id number] Access Code: [email or web address] URL: [email or web address] Date: 07-30-2024 Prepared By: Neha Driver Program [...] - 4 sets - 15 reps [facility] Absolute lymphocyte countOrd ered By: Yasmany Borges on 02-21-2024 Lymphocytes Auto (Unsp spec) [#/Vol] 2.25 10*3/uL 0.83-4.51 [facility] Automated lymphocyte count a s percentage of total leukocytesOrdered By: Yasmany Borges on 02-21-2024 Lymphocytes/100 WBC Auto (Unsp spec) 17.9 % 19-41 [facility] Basophil percentageOrdered B y: Yasmany Borges on 02-21-2024 Basophils/100 WBC (Bld) 1.0 % 0-1 [facility] Eosinophils/100 WBC (Bld) 10.7 % 0-5 [facility] Hemoglobin (Bld) [Mass/Vol] 13.9 g/dL 13.0-16.5 [facility] LDH [Catalytic activity/Vol] 140 U/L 87-241 [facility] Monocytes/100 WBC (Bld) 9.4 % 0-10 [facility] Neutrophils (Bld) [#/Vol] 7.6 10*3/uL 2.0-7.7 [facility] Neutrophils/100 WBC (Bld) 60.4 % 47-70 [facility] WBC (Bld) [#/Vol] 12.6 10*3/uL 4.4-11.0 [facility] Determination of erythrocyte mean corpuscular volume (MCV)Ordered By: Yasmany Borges on 02-21-2024 MCV (RBC) [Entitic vol] 92.8 fL 80-94 [facility] Erythrocyte distribution wid th ratioOrdered By: Yasmany Borges on 02-21-2024 Erythrocyte distribution width (RBC) [Ratio] 14.3 % 11.6-14.6 [facility] Erythrocyte distribution wid th standard deviationOrdered By: Yasmany Borges on 02-21-2024 Erythrocyte distribution width (RBC) [Entitic vol] 47.9 fL 35.1-43.9 [facility] Erythrocyte sedimentation ra teOrdered By: Yasmany Borges on 02-21-2024 ESR (Bld) [Velocity] 36 mm/h 0-20 [facility] HIV 1 and HIV-2 antibody ass ay with HIV-1 p24 antigen detectionOrdered By: Yasmany Borges on 02-21-2024 HIV 1+2 Ab+HIV1 p24 Ag IA Ql Non-Reactive Nonreactive [facility] Hematocrit Auto (Bld) [Volum e fraction]Ordered By: Yasmany Borges on 02-21-2024 Hematocrit (Bld) [Volume fraction] 45.4 % 40-54 [facility] Hemoglobin in reticulocytes (mass per reticulocyte)Ordered By: Yasmany Borges on 02-21-2024 Hemoglobin (Reticulocytes) [Entitic mass] 33.4 pg 30-35 [facility] Immature granulocytes/100 WB C Auto (Bld)Ordered By: Yasmany Borges on 02-21-2024 Immature granulocytes/100 WBC (Bld) 0.600 % 0.0-0.9 [facility] Comment on above: IG% - Immature Granu locytes (promyelocytes, myelocytes and metamyelocytes) > 1% indicates that a LEFT SHIFT is Present. Iron measurement (mass/mass) Ordered By: Yasmany Borges on 02-21-2024 Iron (Unsp spec) [Mass/Mass] 70 ug/dL 65-175 [facility] - Chemistry and C hemistry - challengeOrdered By: Yasmany Borges on 02-21-2024 CK [Catalytic activity/Vol] 35 U/L 39-308 [facility] Ferritin [Mass/Vol] 11 ng/mL 26-388 [facility] - Hematology and Cell countsOrdered By: Yasmany Borges on 02-21-2024 MCH (RBC) [Entitic mass] 28.4 pg 27.0-32.0 [facility] MCHC (RBC) [Mass/Vol] 30.6 g/dL 32-36 [facility] Nucleated RBC/100 WBC (Bld) [Ratio] 0 % 0-5 [facility] Platelet mean volume (Bld) [Entitic vol] 8.8 fL 6.2-12.0 [facility] Platelets (Bld) [#/Vol] 449 10*3/uL 150-450 [facility] No Panel InformationOrdered By: Yasmany Borges on 02-21-2024 C-Reactive Protein Extended Range < 2.90 mg/L 0.0-3.0 [facility] Comment on above: C-Reactive Protein ( CRP) provides useful information for thediagnosis, therapy and monitoring of inflammatory processesand associated diseases. For the evaluation of Relative Riskfor Cardiovascular Disease, a High Sensitivity CRP (HSCRP)should be ordered. Immature Reticulocyte Fraction 21.10 % 3.00-15.90 [facility] Total Iron Binding Capacity 521 ug/dL 250-450 [facility] RBC Auto (Bld) [#/Vol]Ordere d By: Yasmany Borges on 02-21-2024 RBC (Bld) [#/Vol] 4.89 10*6/uL 4.6-6.2 [facility] Reticulocytes Auto (Bld) [#/ Vol]Ordered By: Yasmany Borges on 02-21-2024 Reticulocytes/100 RBC (Bld) 1.97 % 0.5-1.5 [facility] Serum mitochondria antibody detectionOrdered By: Yasmany Borges on 04-18-2024 Mitochondria Ab Ql (S) <20.0 Units 0.0-20.0 [facility] Comment on above: Negative 0.0 - 20.0 Equivocal 20.1 - 24.9 Positive >24.9Mitochondrial (M2) Antibodies are found in 90-96% ofpatients with primary biliary cirrhosis.Performed at: - [facility] [id number] Director: Can Calvo PhD, Phone: [phone] Laboratory - Hematology and Cell countson 01-31-2024 HbA1c (Bld) [Mass fraction] 12.8 % 4.2-6.3 [facility] - Hematology and Cell countson 12-24-2023 HbA1c (Bld) [Mass fraction] % 4.2-6.3 [facility] Basophil percentageOrdered B y: Yasmany Borges on 09-24-2023 Basophil percentage 0.2 AI 0.0-0.9 [facility] Basophil percentage < 0.2 AI 0.0-0.9 [facility] LDH [Catalytic activity/Vol] 159 U/L 87-241 [facility] Erythrocyte sedimentation ra teOrdered By: Yasmany Borges on 09-24-2023 ESR (Bld) [Velocity] 36 mm/h 0-20 [facility] HIV 1 and HIV-2 antibody ass ay with HIV-1 p24 antigen detectionOrdered By: Yasmany Borges on 09-24-2023 HIV 1+2 Ab+HIV1 p24 Ag IA Ql Non-Reactive Nonreactive [facility] Hemoglobin in reticulocytes (mass per reticulocyte)Ordered By: Yasmany Borges on 09-24-2023 Hemoglobin (Reticulocytes) [Entitic mass] 30.8 pg 30-35 [facility] - Chemistry and C hemistry - challengeOrdered By: Yasmanymichael Borges on 09-24-2023 CK [Catalytic activity/Vol] 42 U/L 39-308 [facility] Free T4 [Mass/Vol] 1.26 ng/dL 0.76-1.46 [facility] No Panel InformationOrdered By: Yasmany Borges on 09-24-2023 Centromere B Antibody <0.2 AI 0.0-0.9 [facility] Free Triiodothyronine (T3) pg/dL 1.7 pg/mL 2.18-3.98 [facility] Immature Reticulocyte Fraction 19.80 % 3.00-15.90 [facility] Reticulocyte Count 1.78 % 0.5-1.5 [facility] [employer] COUNSELOR Antibody <0.2 AI 0.0-0.9 [facility] Thyroid Stimulating Hormone (TSH) 1.17 uIU/mL 0.358-3.74 [facility] Total Iron Binding Capacity 417 ug/dL 250-450 [facility] Serum DNA double strand anti body assay (units/volume)Ordered By: Yasmany Borges on 09-24-2023 DNA double strand Ab Qn (S) [IU]/mL 0-9 [facility] Comment on above: Negative <5 Equivoca l 5 - 9 Positive >9 Serum Elaine-1 antibody assay (u nits/volume)Ordered By: Yasmany Borges on 09-24-2023 Elaine-1 extractable nuclear Ab Qn (S) <0.2 AI 0.0-0.9 [facility] Serum Scl-70 extractable nuc lear antibody assay (units/volume)Ordered By: Yasmany Borges on 09-24-2023 SCL-70 extractable nuclear Ab Qn (S) <0.2 AI 0.0-0.9 [facility] Serum Dao extractable nucl ear antibody detectionOrdered By: Yasmany Borges on 09-24-2023 Dao extractable nuclear Ab Ql (S) <0.2 AI 0.0-0.9 [facility] Serum mitochondria antibody detectionOrdered By: Yasmany Borges on 09-24-2023 Mitochondria Ab Ql (S) <20.0 Units 0.0-20.0 [facility] Comment on above: Negative 0.0 - 20.0 Equivocal 20.1 - 24.9 Positive >24.9Mitochondrial (M2) Antibodies are found in 90-96% ofpatients with primary biliary cirrhosis.Performed at: [facility] [id number] Director: Can Calvo PhD, Phone: [phone] Serum or plasma C reactive p rotein measurement (mass/volume)Ordered By: Yasmany Borges on 09-24-2023 CRP [Mass/Vol] mg/L 0.0-3.0 [facility] Comment on above: C-Reactive Protein ( CRP) provides useful information for thediagnosis, therapy and monitoring of inflammatory processesand associated diseases. For the evaluation of Relative Riskfor Cardiovascular Disease, a High Sensitivity CRP (HSCRP)should be ordered. Serum or plasma ferritin luciana surement (mass/volume)Ordered By: Yasmany Borges on 09-24-2023 Ferritin [Mass/Vol] 20 ng/mL 26-388 [facility] Basophil percentageOrdered B y: William Owens on 05-02-2023 Bilirubin [Mass/Vol] 0.10 mg/dL 0.20-1.00 [facility] Comment on above: For patients on eltr ombopag therapy, use of [place]ension [place] TBIL is not recommended. Chloride [Moles/Vol] 112 mmol/L 98-107 [facility] Cholesterol [Mass/Vol] 91 mg/dL <200 [facility] Comment on above: <200 mg/dL Desirable 200-240 mg/dL Borderline >240 mg/dL High Risk Glucose [Mass/Vol] 91 mg/dL 74-106 [facility] Potassium [Moles/Vol] 4.4 mmol/L 3.5-5.1 [facility] Protein [Mass/Vol] 7.7 g/dL 6.4-8.2 [facility] Sodium [Moles/Vol] 139 mmol/L 136-145 [facility] Triglyceride [Mass/Vol] 129 mg/dL <199 [facility] Comment on above: The drugs N-Acetylcy steine and Metamizole may falsely depress this assay.Serum Triglycerides Reference Interval Normal <150 mg/dL Borderline high 150 - 199 mg/dL High 200 - 499 mg/dL Very High > or = 500 mg/dL Laboratory - Chemistry and C hemistry - challengeOrdered By: William Owens on 05-02-2023 ALP [Catalytic activity/Vol] 117 U/L 45-117 [facility] ALT [Catalytic activity/Vol] 204 U/L 16-61 [facility] CO2 [Moles/Vol] 25.0 mmol/L 21.0-32.0 [facility] Free T4 [Mass/Vol] 1.14 ng/dL 0.76-1.46 [facility] Globulin (S) [Mass/Vol] 4.3 g/dL 2.2-4.2 [facility] Urea nitrogen/Creatinine [Mass ratio] 28.5 mg/mg 10-20 [facility] - Hematology and Cell countson 05-02-2023 HbA1c (Bld) [Mass fraction] 11.7 % 4.2-6.3 [facility] No Panel InformationOrdered By: William Owens on 05-02-2023 Estimated GFR (MDRD) Amer 113 mL/min >60 [facility] Comment on above: GFR Calc Estimated GFR (MDRD) Non-Af Amer 94 mL/min >60 [facility] Comment on above: Non- GFR Calc Thyroid Stimulating Hormone (TSH) 2.68 uIU/mL 0.358-3.74 [facility] Urine Microalbumin/Creatinine Ratio 79.8 mg/g CRE <30 [facility] Serum or plasma albumin kain urement (mass/volume)Ordered By: William Owens on 05-02-2023 Albumin [Mass/Vol] 3.4 g/dL 3.2-5.0 [facility] Serum or plasma albumin/glob ulin mass ratioOrdered By: William Owens on 05-02-2023 Albumin/Globulin [Mass ratio] 0.8 {ratio} 0.9-2.4 [facility] Serum or plasma calcium kain urement (mass/volume)Ordered By: William Owens on 05-02-2023 Calcium [Mass/Vol] 9.6 mg/dL 8.5-10.1 [facility] Serum or plasma cholesterol in HDL measurement (mass/volume)Ordered By: William Owens on 05-02-2023 Cholesterol in HDL [Mass/Vol] 44 mg/dL >40 [facility] Comment on above: The drugs N-Acetylcy steine and Metamizole may falsely depress this assay. Reference Range HDL <40 mg/dL Low HDL Cholesterol HDL >or= 60 mg/dL High HDL Cholesterol Serum or plasma cholesterol in VLDL measurement (mass/volume)Ordered By: William Owens on 05-02-2023 Cholesterol in VLDL [Mass/Vol] 26 mg/dL 5-40 [facility] Serum or plasma creatinine m easurement (mass/volume)Ordered By: William Owens on 05-02-2023 Creatinine [Mass/Vol] 0.95 mg/dL 0.70-1.30 [facility] Comment on above: The validity of the calculated GFR & GFRAA in patients over 70 years has not been determined. Clinical correlation is essential. Serum or plasma low density lipoprotein (LDL) cholesterol measurement (mass/volume)Ordered By: William Owens on 05-02-2023 Cholesterol in LDL [Mass/Vol] 21 mg/dL 0-130 [facility] Serum or plasma urea nitroge n measurement (mass/volume)Ordered By: William Owens on 05-02-2023 Urea nitrogen [Mass/Vol] 27 mg/dL 7-18 [facility] Thin prep Papanicolaou smear with manual screeningOrdered By: William Owens on 05-02-2023 Thin prep Papanicolaou smear with manual screening 85 U/L 15-37 [facility] Thin prep Papanicolaou smear with manual screening 2 5-15 [facility] Thin prep Papanicolaou smear with manual screening 40.0 mg/L NO RANGE EST. [facility] Urine creatinine measurement (mass/volume)Ordered By: William Owens on 05-02-2023 Creatinine (U) [Mass/Vol] 50.10 mg/dL NO RANGE EST. [facility] Laboratory - Hematology and Cell countson 01-25-2023 HbA1c (Bld) [Mass fraction] 9.3 % 4.2-6.3 [facility] - Chemistry and C hemistry - challengeon 10-19-2022 Free T4 [Mass/Vol] 1.32 ng/dL 0.76-1.46 [facility] Work Phone: Laboratory - Hematology and Cell countson 10-19-2022 HbA1c (Bld) [Mass fraction] 7.6 % [facility] Work Phone: No Panel Informationon 10-19 Thyroid Stimulating Hormone (TSH) 2.30 uIU/mL 0.358-3.74 [facility] Work Phone: Absolute lymphocyte counton 05-01-2022 Lymphocytes Auto (Unsp spec) [#/Vol] 3.36 10*3/uL 0.83-4.51 [facility] Work Phone: Basophil percentageon 2021 Basophils/100 WBC (Bld) 0.9 % 0-1 [facility] Work Phone: Bilirubin [Mass/Vol] 0.30 mg/dL 0.20-1.00 [facility] Work Phone: Comment on above: For patients on eltr ombopag therapy, use of [place] TBIL is not recommended. Chloride [Moles/Vol] 112 mmol/L 98-107 [facility] Work Phone: Cholesterol [Mass/Vol] 133 mg/dL <200 [facility] Work Phone: Comment on above: <200 mg/dL Desirable 200-240 mg/dL Borderline >240 mg/dL High Risk Eosinophils/100 WBC (Bld) 8.7 % 0-5 [facility] Work Phone: [phone] Glucose [Mass/Vol] 196 mg/dL 74-106 [facility] Work Phone: Comment on above: Fasting Glucose resu lt greater than or equal to 126 mg/dL suggests DIABETES MELLITUS per A.D.A. criteria. Neutrophils (Bld) [#/Vol] 5.8 10*3/uL 2.0-7.7 [facility] Work Phone: Neutrophils/100 WBC (Bld) 51.3 % 47-70 [facility] Work Phone: Potassium [Moles/Vol] 4.4 mmol/L 3.5-5.1 [facility] Work Phone: Protein [Mass/Vol] 7.5 g/dL 6.4-8.2 [facility] Work Phone: Sodium [Moles/Vol] 141 mmol/L 136-145 [facility] Work Phone: Triglyceride [Mass/Vol] 154 mg/dL <199 [facility] Work Phone: Comment on above: The drugs N-Acetylcy steine and Metamizole may falsely depress this assay.Serum Triglycerides Reference Interval Normal <150 mg/dL Borderline high 150 - 199 mg/dL High 200 - 499 mg/dL Very High > or = 500 mg/dL WBC (Bld) [#/Vol] 11.3 10*3/uL 4.4-11.0 [facility] Work Phone: Blood erythrocytes count (nu mber/volume)on 05-01-2022 RBC (Bld) [#/Vol] 4.87 10*6/uL 4.6-6.2 [facility] Work Phone: Blood hemoglobin measurement (mass/volume)on 05-01-2022 Hemoglobin (Bld) [Mass/Vol] 13.6 g/dL 13.0-16.5 [facility] Work Phone: Blood lymphocytes/100 leukoc yteson 05-01-2022 Lymphocytes/100 WBC (Bld) 29.8 % 19-41 [facility] Work Phone: Blood monocytes/100 leukocyt eson 05-01-2022 Monocytes/100 WBC (Bld) 9.0 % 0-10 [facility] Work Phone: Blood platelet mean volumeon 05-01-2022 Platelet mean volume (Bld) [Entitic vol] 9.4 fL 6.2-12.0 [facility] Work Phone: Determination of erythrocyte mean corpuscular volume (MCV)on 05-01-2022 MCV (RBC) [Entitic vol] 90.3 fL 80-94 [facility] Work Phone: Hematocrit Auto (Bld) [Volum e fraction]on 05-01-2022 Hematocrit (Bld) [Volume fraction] 44.0 % 40-54 [facility] Work Phone: [phone] Laboratory - Chemistry and C hemistry - challengeon 05-01-2022 ALP [Catalytic activity/Vol] 69 U/L 45-117 [facility] Work Phone: ALT [Catalytic activity/Vol] 59 U/L 16-61 [facility] Work Phone: CO2 [Moles/Vol] 23.0 mmol/L 21.0-32.0 [facility] Work Phone: Free T4 [Mass/Vol] 1.12 ng/dL 0.76-1.46 [facility] Work Phone: Globulin (S) [Mass/Vol] 3.8 g/dL 2.2-4.2 [facility] Work Phone: Urea nitrogen/Creatinine [Mass ratio] 21.1 mg/mg 10-20 [facility] Work Phone: Laboratory - Hematology and Cell countson 05-01-2022 Erythrocyte distribution width (RBC) [Entitic vol] 48.6 fL 35.1-43.9 [facility] Work Phone: Erythrocyte distribution width (RBC) [Ratio] 14.6 % 11.6-14.6 [facility] Work Phone: Immature granulocytes/100 WBC (Bld) 0.300 % 0.0-0.9 [facility] Work Phone: Comment on above: IG% - Immature Granu locytes (promyelocytes, myelocytes and metamyelocytes) > 1% indicates that a LEFT SHIFT is Present. MCH (RBC) [Entitic mass] 27.9 pg 27.0-32.0 [facility] Work Phone: Nucleated RBC/100 WBC (Bld) [Ratio] 0 % 0-5 [facility] Work Phone: MCHC Auto (RBC) [Mass/Vol]on 05-01-2022 MCHC (RBC) [Mass/Vol] 30.9 g/dL 32-36 [facility] Work Phone: No Panel Informationon 05-01 [place] Level 0.80 mmol/L 0.60-1.20 [facility] Work Phone: Vitamin D 25-Hydroxy 66.5 ng/mL [facility] Work Phone: Comment on above: Vitamin D 25(OH) Sta tus Range Deficiency <20 ng/mL (50nmol/L) Insufficiency 20 - 30 ng/mL (50 - 75 nmol/L) Sufficiency 30 - 100 ng/mL (75 - 250 nmol/L) Toxicity >100 ng/mL (>250 nmol/L) Estimated GFR (MDRD) Amer 97 mL/min >60 [facility] Work Phone: Comment on above: GFR Calc Estimated GFR (MDRD) Non-Af Amer 80 mL/min >60 [facility] Work Phone: Comment on above: Non- GFR Calc Thyroid Stimulating Hormone (TSH) 0.44 uIU/mL 0.358-3.74 [facility] Work Phone: Platelets bldon 05-01-2022 Platelets (Bld) [#/Vol] 429 10*3/uL 150-450 [facility] Work Phone: Serum or plasma albumin kain urement (mass/volume)on 05-01-2022 Albumin [Mass/Vol] 3.7 g/dL 3.2-5.0 [facility] Work Phone: Serum or plasma albumin/glob ulin mass ratioon 05-01-2022 Albumin/Globulin [Mass ratio] 1.0 {ratio} 0.9-2.4 [facility] Work Phone: Serum or plasma calcium kain urement (mass/volume)on 05-01-2022 Calcium [Mass/Vol] 9.2 mg/dL 8.5-10.1 [facility] Work Phone: Serum or plasma cholesterol in HDL measurement (mass/volume)on 05-01-2022 Cholesterol in HDL [Mass/Vol] 47 mg/dL >40 [facility] Work Phone: Comment on above: The drugs N-Acetylcy steine and Metamizole may falsely depress this assay. Reference Range HDL <40 mg/dL Low HDL Cholesterol HDL >or= 60 mg/dL High HDL Cholesterol Serum or plasma cholesterol in VLDL measurement (mass/volume)on 05-01-2022 Cholesterol in VLDL [Mass/Vol] 31 mg/dL 5-40 [facility] Work Phone: Serum or plasma creatinine m easurement (mass/volume)on 05-01-2022 Creatinine [Mass/Vol] 1.09 mg/dL 0.70-1.30 [facility] Work Phone: Comment on above: The validity of the calculated GFR & GFRAA in patients over 70 years has not been determined. Clinical correlation is essential. Serum or plasma low density lipoprotein (LDL) cholesterol measurement (mass/volume)on 05-01-2022 Cholesterol in LDL [Mass/Vol] 55 mg/dL 0-130 [facility] Work Phone: Serum or plasma urea nitroge n measurement (mass/volume)on 05-01-2022 Urea nitrogen [Mass/Vol] 23 mg/dL 7-18 [facility] Work Phone: Thin prep Papanicolaou smear with manual screeningon 05-01-2022 Thin prep Papanicolaou smear with manual screening 47 U/L 15-37 [facility] Work Phone: Thin prep Papanicolaou smear with manual screening 6 5-15 [facility] Work Phone: Whole blood hemoglobin A1c/t otal hemoglobin ratio (mass fraction)on 05-01-2022 HbA1c (Bld) [Mass fraction] 9.7 % 3.8-5.6 [facility] Work Phone: Comment on above: Normal < 5.7 % Predi abetic 5.7 - 6.4 % Diabetic >or= 6.5 % Please note range changes. Office Visit: UC: thrushon 0 07-31-2017 Documentation of current medications (procedure) Done Invalid Interpretation Code [facility] Work Phone: Fall risk assessment No [facility] Work Phone: Protein mass conc Done [facility] Work Phone: Tobacco smoking status NHIS Never [facility] Work Phone: Tobacco smoking status NHIS Never smoker [facility] Work Phone: Tobacco use [facility] Never smoker Invalid Interpretation Code [facility] Work Phone: Vital Signs Date Time Vital Sign Value Performing Clinician Faci lambert 05-15-2025 08:48-0400 Diastolic blood pressure 95 mm[Hg] Dr. Denise Reyes MD Work Phone: [facility] 05-15-2025 08:48-0400 Heart rate 81 /min Dr. Denise Reyes MD Work Phone: [facility] 05-15-2025 08:48-0400 Respiratory rate 16 /min Dr. Denise Reyes MD Work Phone: [facility] 05-15-2025 08:48-0400 SaO2% (BldA) [Mass fraction] 99 % Dr. Denise Reyes MD Work Phone: [facility] 05-15-2025 08:48-0400 Systolic blood pressure 135 mm[Hg] Dr. Denise Reyes MD Work Phone: [facility] 05-15-2025 05:54-0400 Body temperature 98.3 [degF] Dr. Denise Reyes MD Work Phone: [facility] 05-14-2025 13:50-0400 Body height 177.[address] Denise Reyes MD Work Phone: [facility] 05-14-2025 13:50-0400 Body mass index (BMI) [Ratio] 24.3 kg/m2 Dr. Denise Reyes MD Work Phone: [facility] 05-14-2025 13:50-0400 Body weight 76.[address] Denise Reyes MD Work Phone: [facility] 05-02-2025 12:20-0400 Body temperature 98.6 [degF] Dr. Denise Reyes MD Work Phone: [facility] 05-02-2025 12:20-0400 Diastolic blood pressure 91 mm[Hg] Dr. Denise Reyes MD Work Phone: [facility] 05-02-2025 12:20-0400 Heart rate 73 /min Dr. Denise Reyes MD Work Phone: 7(584)882-705153 [place] [address] 05-02-2025 12:20-0400 Respiratory rate 16 /min Dr. Denise Reyes MD Work Phone: 8(260)456-753553 [place] [address] 05-02-2025 12:20-0400 SaO2% (BldA) [Mass fraction] 98 % Dr. Denise Reyes MD Work Phone: 2(733)833-075453 [place] [address] 05-02-2025 12:20-0400 Systolic blood pressure 142 mm[Hg] Dr. Denise Reyes MD Work Phone: 9(917)382-371953 [place] [address] 05-01-2025 23:57-0400 Body height 177.[address] Denise Reyes MD Work Phone: 0(688)308-485353 [place] [address] 05-01-2025 23:57-0400 Body mass index (BMI) [Ratio] 24.5 kg/m2 Dr. Denise Reyes MD Work Phone: 3(001)967-113253 [place] [address] 05-01-2025 23:57-0400 Body weight 77.[address] Denise Reyes MD Work Phone: 8(258)566-167253 [place] [address] 04-06-2025 17:53-0400 Body height 177.[address] Denise Reyes MD Work Phone: 1(821)298-902553 [place] [address] 04-06-2025 17:53-0400 Body mass index (BMI) [Ratio] 24.1 kg/m2 Dr. Denise Reyes MD Work Phone: 5(158)059-641953 [place] [address] 04-06-2025 17:53-0400 Body temperature 98.1 [degF] Dr. Denise Reyes MD Work Phone: 2(743)174-146153 [place] [address] 04-06-2025 17:53-0400 Body weight 76.[address] Denise Reyes MD Work Phone: 0(616)336-963753 [place] [address] 04-06-2025 17:53-0400 Diastolic blood pressure 86 mm[Hg] Dr. Denise Reyes MD Work Phone: [facility] 04-06-2025 17:53-0400 Heart rate 95 /min Dr. Denise Reyes MD Work Phone: 7(770)523-164758 [place] [address] 04-06-2025 17:53-0400 Respiratory rate 19 /min Dr. Denise Reyes MD Work Phone: 8(368)766-599658 [place] [address] 04-06-2025 17:53-0400 SaO2% (BldA) [Mass fraction] 97 % Dr. Denise Reyes MD Work Phone: 3(968)146-136853 [place] [address] 04-06-2025 17:53-0400 Systolic blood pressure 109 mm[Hg] Dr. Denise Reyes MD Work Phone: 3(794)488-094153 [place] [address] 12-20-2024 00:29-0500 Body temperature 98.7 [degF] Dr. Denise Reyes MD Work Phone: 9(460)734-372853 [place] [address] 12-20-2024 00:29-0500 Diastolic blood pressure 86 mm[Hg] Dr. Denise Reyes MD Work Phone: 9(285)517-093953 [place] [address] 12-20-2024 00:29-0500 Heart rate 86 /min Dr. Denise Reyes MD Work Phone: 7(646)406-081058 [place] [address] 12-20-2024 00:29-0500 Respiratory rate 16 /min Dr. Denise Reyes MD Work Phone: 3(643)349-569058 [place] [address] 12-20-2024 00:29-0500 SaO2% (BldA) [Mass fraction] 96 % Dr. Denise Reyes MD Work Phone: 4(974)744-432353 [place] [address] 12-20-2024 00:29-0500 Systolic blood pressure 136 mm[Hg] Dr. Denise Reyes MD Work Phone: 8(755)723-939053 [place] [address] 12-19-2024 21:25-0500 Body mass index (BMI) [Ratio] 24 kg/m2 Dr. Denise Reyes MD Work Phone: 9(849)396-827358 [place] [address] 12-19-2024 21:25-0500 Body weight 76.[address] Denise Reyes MD Work Phone: [facility] 01-31-2024 14:45-0400 Body height 180.[address] Denise Reyes Work Phone: [facility] 01-31-2024 14:45-0400 Body mass index (BMI) [Ratio] 25.7 kg/m2 Dr. Denise Reyes Work Phone: [facility] 01-31-2024 14:45-0400 Body temperature 98.9 [degF] Dr. Denise Reyes Work Phone: [facility] 01-31-2024 14:45-0400 Body weight 83.[address] Denise Reyes Work Phone: [facility] 01-31-2024 14:45-0400 Diastolic blood pressure 81 mm[Hg] Dr. Denise Reyes Work Phone: [facility] 01-31-2024 14:45-0400 Heart rate 95 /min Dr. Denise Reyes Work Phone: [facility] 01-31-2024 14:45-0400 SaO2% (BldA) [Mass fraction] 97 % Dr. Denise Reyes Work Phone: [facility] 01-31-2024 14:45-0400 Systolic blood pressure 114 mm[Hg] Dr. Denise Reyes Work Phone: [facility] 12-24-2023 10:43-0500 Body mass index (BMI) [Ratio] 24.5 kg/m2 Dr. Denise Reyes Work Phone: [facility] 12-24-2023 10:43-0500 Body temperature 98.8 [degF] Dr. Denise Reyes Work Phone: [facility] 12-24-2023 10:43-0500 Body weight 79.[address] Denise Reyes Work Phone: [facility] 12-24-2023 10:43-0500 Diastolic blood pressure 94 mm[Hg] Dr. Denise Reyes Work Phone: [facility] 12-24-2023 10:43-0500 Heart rate 74 /min Dr. Denise Reyes Work Phone: [facility] 12-24-2023 10:43-0500 Respiratory rate 16 /min Dr. Denise Reyes Work Phone: [facility] 12-24-2023 10:43-0500 SaO2% (BldA) [Mass fraction] 97 % Dr. Denise Reyes Work Phone: [facility] 12-24-2023 10:43-0500 Systolic blood pressure 140 mm[Hg] Dr. Denise Reyes Work Phone: [facility] 05-02-2023 13:48-0400 Body height 180.[address] Denise Reyes Work Phone: [facility] 05-02-2023 13:48-0400 Body mass index (BMI) [Ratio] 25.9 kg/m2 Dr. Denise Reyes Work Phone: [facility] 05-02-2023 13:48-0400 Body temperature 98.2 [degF] Dr. Denise Reyes Work Phone: [facility] 05-02-2023 13:48-0400 Body weight 84.[address] Denise Reyes Work Phone: [facility] 05-02-2023 13:48-0400 Diastolic blood pressure 68 mm[Hg] Dr. Denise Reyes Work Phone: [facility] 05-02-2023 13:48-0400 Heart rate 86 /min Dr. Denise Reyes Work Phone: [facility] 05-02-2023 13:48-0400 Respiratory rate 16 /min Dr. Denise Reyes Work Phone: [facility] 05-02-2023 13:48-0400 SaO2% (BldA) [Mass fraction] 97 % Dr. Denise Reyes Work Phone: [facility] 05-02-2023 13:48-0400 Systolic blood pressure 120 mm[Hg] Dr. Denise Reyes Work Phone: [facility] 01-25-2023 13:49-0400 Body temperature 98.2 [degF] Dr. Denise Reyes Work Phone: [facility] 01-25-2023 13:49-0400 Body weight 85.[address] Denise Reyes Work Phone: [facility] 01-25-2023 13:49-0400 Diastolic blood pressure 80 mm[Hg] Dr. Denise Reyes Work Phone: [facility] 01-25-2023 13:49-0400 Heart rate 100 /min Dr. Denise Reyes Work Phone: [facility] 01-25-2023 13:49-0400 Respiratory rate 16 /min Dr. Denise Reyes Work Phone: [facility] 01-25-2023 13:49-0400 SaO2% (BldA) [Mass fraction] 95 % Dr. Denise Reyes Work Phone: [facility] 01-25-2023 13:49-0400 Systolic blood pressure 127 mm[Hg] Dr. Denise Reyes Work Phone: [facility] 10-19-2022 13:48-0500 Body height 180.[address] Denise Reyes Work Phone: [facility] Work Phone: 10-19-2022 13:48-0500 Body mass index (BMI) [Ratio] 26.1 kg/m2 Dr. Denise Reyes Work Phone: [facility] Work Phone: 10-19-2022 13:48-0500 Body temperature 96.7 [degF] Dr. Denise Reyes Work Phone: [facility] Work Phone: 10-19-2022 13:48-0500 Body weight 84.[address] Denise Reyes Work Phone: [facility] Work Phone: 10-19-2022 13:48-0500 Diastolic blood pressure 85 mm[Hg] Dr. Denise Reyes Work Phone: [facility] Work Phone: 10-19-2022 13:48-0500 Heart rate 86 /min Dr. Denise Reyes Work Phone: [facility] Work Phone: 10-19-2022 13:48-0500 Respiratory rate 18 /min Dr. Denise Reyes Work Phone: [facility] Work Phone: 10-19-2022 13:48-0500 SaO2% (BldA) [Mass fraction] 96 % Dr. Denise Reyes Work Phone: [facility] Work Phone: 10-19-2022 13:48-0500 Systolic blood pressure 125 mm[Hg] Dr. Denise Reyes Work Phone: [facility] Work Phone: 07-27-2022 11:22-0400 Body mass index (BMI) [Ratio] 27.3 kg/m2 Dr. Denise Reyes Work Phone: [facility] Work Phone: 07-27-2022 11:22-0400 Body temperature 96.7 [degF] Dr. Denise Reyes Work Phone: [facility] Work Phone: 07-27-2022 11:22-0400 Body weight 88.[address] Denise Reyes Work Phone: [facility] Work Phone: 07-27-2022 11:22-0400 Diastolic blood pressure 77 mm[Hg] Dr. Denise Reyes Work Phone: [facility] Work Phone: 07-27-2022 11:22-0400 Heart rate 95 /min Dr. Denise Reyes Work Phone: [facility] Work Phone: 07-27-2022 11:22-0400 Respiratory rate 18 /min Dr. Denise Reyes Work Phone: [facility] Work Phone: 07-27-2022 11:22-0400 SaO2% (BldA) [Mass fraction] 97 % Dr. Denise Reyes Work Phone: [facility] Work Phone: 07-27-2022 11:22-0400 Systolic blood pressure 111 mm[Hg] Dr. Denise Reyes Work Phone: [facility] Work Phone: 07-31-2017 15:47-0400 BMI (Body Mass Index) 34.45 kg/m2 Macy Salinas LPN [facility] Work Phone: 07-31-2017 15:47-0400 Body Temperature 97.7 [degF] Macy Salinas LPN [facility] Work Phone: 07-31-2017 15:47-0400 BP Diastolic 98 mm[Hg] Macy Salinas LPN [facility] Work Phone: 07-31-2017 15:47-0400 BP Systolic 142 mm[Hg] Macy Salinas [employer]YLIST [facility] Work Phone: 07-31-2017 15:47-0400 Height 180.34 cm Macy Salinas LPN [facility] Work Phone: 07-31-2017 15:47-0400 Pulse (Heart Rate) 90 /min Macy Salinas LPN [facility] Work Phone: 07-31-2017 15:47-0400 Respiratory Rate 14 /min Macy Salinas LPN [facility] Work Phone: 07-31-2017 15:29-0405 Weight 112.04 kg Macy Salinas LPN [facility] Work Phone: Encounters Encounter Date Encounter Type Care Provider Facility Start: 08-26-2025 ambulatory Denise Reyes Facilit y:[facility] Start: 08-04-2025 End: 08-04-2025 ambulatory Dena Danii Facility:[facility] Start: 07-23-2025 End: 07-23-2025 ambulatory Denise Reyes Facility:[facility] Start: 07-14-2025 End: 08-04-2025 ambulatory Denise Reyes Facility:[facility] Start: 05-14-2025 End: 05-15-2025 Emergency department patient visit Dr. Denise Reyes MD Work Phone: -Emergency Department Work Phone: Start: 05-01-2025 End: 05-02-2025 Emergency department patient visit Dr. Denise Reyes MD Work Phone: -Emergency Department Work Phone: Start: 04-06-2025 End: 04-06-2025 Emergency department patient visit Dr. Denise Reyes MD Work Phone: -Emergency Department Work Phone: Start: 04-03-2025 End: 04-03-[address] Denise Reyes MD Work Phone: [facility] Work Phone: Start: 04-03-2025 End: 04-03-[address] Denise Reyse MD -[facility] Start: 04-03-2025 End: 04-03-2025 ambulatory Denise Reyes Facility:[facility] Start: 02-02-2025 ambulatory Denise Reyes Facilit y:[facility] Start: 01-30-2025 End: 01-30-[address] Denise Reyes MD -Laboratory [facility] Start: 01-30-2025 End: 01-30-2025 ambulatory Denise Reyes Facility:[facility] Start: 12-19-2024 End: 12-20-2024 Emergency department patient visit Jorge Alberto Durand -Emergency Department Work Phone: Start: 12-19-2024 End: 12-19-[address] Denise Reyes MD -Laboratory [facility] Start: 12-19-2024 End: 12-19-2024 ambulatory Denise Reyes Facility:[facility] Start: 11-13-2024 End: 11-13-2024 ambulatory Denise Reyes Facility:[facility] Start: 10-13-2024 End: 10-13-2024 ambulatory Neha O'Babak PT [facility] Comment on above: Weakness of left low er extremity (Primary Dx) Start: 10-10-2024 End: 10-10-2024 ambulatory Denise Reyes Facility:[facility] Start: 10-06-2024 End: 10-06-2024 ambulatory Neha O'Babak PT [facility] Comment on above: Weakness of left low er extremity (Primary Dx) Start: 2024 End: 2024 ambulatory 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 Phone: [facility] Comment on above: Weakness of left low er extremity (Primary Dx) Start: 09-22-2024 End: 09-22-2024 ambulatory McKena Thoennes PT, DPT [facility] Comment on above: Weakness of left low er extremity (Primary Dx) Start: 09-15-2024 End: 09-15-2024 ambulatory McKena Thoennes PT, DPT [facility] Comment on above: Weakness of left low er extremity (Primary Dx) Start: 09-08-2024 End: 09-08-2024 ambulatory McKena Thoennes PT, DPT [facility] Comment on above: Weakness of left low er extremity (Primary Dx) Start: 09-01-2024 End: 09-01-2024 ambulatory Neha O'Babak PT [facility] Comment on above: Weakness of left low er extremity (Primary Dx) Start: 08-25-2024 End: 08-25-2024 ambulatory Neha O'Babak PT [facility] Comment on above: Weakness of left low er extremity (Primary Dx) Start: 08-22-2024 End: 08-22-2024 ambulatory Denise Reyes Facility:[facility] Start: 08-11-2024 End: 08-11-2024 ambulatory Neha O'Babak PT [facility] Comment on above: Weakness of left low er extremity (Primary Dx) Start: 07-30-2024 End: 07-30-2024 ambulatory Neha O'Babak PT [facility] Comment on above: Weakness of left low er extremity (Primary Dx) Start: 02-21-2024 End: 02-21-[address] Denise Reyes Work Phone: [facility] Work Phone: Start: 02-21-2024 End: 02-21-[address] Denise Reyes Work Phone: [facility] Work Phone: Start: 01-31-2024 End: 01-31-2024 Patient encounter procedure Dr. Denise Reyes Work Phone: [facility] Work Phone: Start: 01-28-2024 End: 01-28-[address] Denise Reyes Work Phone: [facility] Work Phone: Start: 12-24-2023 End: 12-24-[address] Denise Reyes Work Phone: [facility] Work Phone: Start: 09-24-2023 End: 09-24-[address] Denise Reyes Work Phone: [facility] Work Phone: Start: 09-24-2023 End: 09-24-[address] Denise Reyes Work Phone: [facility] Work Phone: Start: 05-02-2023 End: 05-02-[address] Denise Reyes Work Phone: [facility] Work Phone: Start: 05-02-2023 End: 05-02-[address] Denise Reyes Work Phone: [facility] Work Phone: Start: 05-02-2023 End: 05-02-[address] Denise Reyes Work Phone: [facility] Work Phone: Start: 01-25-2023 End: 01-25-[address] Denise Reyes Work Phone: [facility] Work Phone: Start: 10-19-2022 End: 10-19-[address] Denise Reyes Work Phone: [facility] Work Phone: Start: 10-19-2022 End: 10-19-[address] Denise Reyes Work Phone: [facility] Start: 07-27-2022 End: 07-27-[address] Denise Reyes Work Phone: [facility] Start: 05-01-2022 End: 05-01-2022 Patient encounter procedure [facility] Start: 12-10-2018 Patient encounter procedure [facility] Facility:B Procedures Date Procedure Procedure Detail Performing Clinician Start: 05-14-2025 Methadone measuremen t, urine Dr. Denise Reyes MD Work Phone: Start: 05-14-[address] Denise Reyes MD Work Phone: Start: 05-02-2025 Methadone measuremen t, urine Dr. Denise Reyes MD Work Phone: Start: 05-02-2025 Urnls dip stick/tabl et reagent auto microscopy Dr. Denise Reyes MD Work Phone: Start: 05-02-[address] Denise Reyes MD Work Phone: Start: 05-02-[address] Denise Reyes MD Work Phone: Comment on above: Critical Result(s) C alled at: 0320 by: MADDY VILLALPANDO TO ANDIE JRODAN. Results read back by same. Start: 05-02-2025 CT of head without contrast Dr. Denise Reyes MD Work Phone: Start: 05-02-2025 Plain chest X-ray Dr. Sim Reyes MD Work Phone: Start: 04-06-[address] Denise Reyes MD Work Phone: Start: 04-03-2025 Urine microalbumin/creatinine ratio measurement Dr. Denise Reyes MD Work Phone: Comment on above: Previous reported re sult: 6716.2 mg/g CREEdited by: LUIS CARLOS on 04/28/25:1113 AMENDED REPORT 04/28/25 1113 MALB:CREAT previously reported as: 6716.2 mg/g CRE Start: 04-03-2025 Vitamin D, 25-hydrox y measurement Dr. Denise Reyes MD Work Phone: Comment on above: Vitamin D StatusDefi ciency: <20 ng/mL (50nmol/L)Insufficiency: 20-30 ng/mL (50-75 nmol/L)Sufficiency: 30-100 ng/mL (75-250 nmol/L)Toxicity: >100 ng/mL (>250 nmol/L) Start: 01-30-2025 Urine microalbumin/creatinine ratio measurement Dr. Denise Reyes MD Work Phone: Comment on above: Previous reported re sult: 67703.3 mg/g CREEdited by: LUIS CARLOS on 04/23/25:0821 AMENDED REPORT 04/23/25 0821 MALB:CREAT previously reported as: 17731.3 mg/g CRE Start: 01-30-2025 Vitamin D, 25-hydrox y measurement [...] Denise Reyes MD Work Phone: Start: 12-19-[address] Denise Reyes MD Work Phone: [...] 02-21-2024 Ultrasound elastogra phy of liver Dr. Densie Reyes Work Phone: Plan of Treatment Date Care Activity Detail Author Start: 03-28-2034 Urine microalbumin profile DTa P,Tdap,Td Vaccine (2 - Td or Tdap) [facility] Start: 05-15-2025 [facility] Start: 05-14-2025 [facility] Start: 05-14-2025 Consultation [facility] Start: 05-02-2025 [facility] Start: 12-20-2024 [facility] Start: 10-13-2024 End: 10-13-2024 ambulatory 10/13/2024 10:15 AM EST OT/PT/Speech Visit [facility] [address] [place] [address] O'Neha Hilliard, PT Weakness of left lower extremity [R29.898] [facility] Comment on above: Weakness of left low er extremity [R29.898] Start: 10-06-2024 End: 10-06-2024 ambulatory 10/06/2024 10:15 AM EST OT/PT/Speech Visit [facility] [address] [place] [address] O'Neha Hilliard, PT Weakness of left lower extremity [R29.898] [facility] Comment on above: Weakness of left low er extremity [R29.898] Start: 2024 End: 2024 ambulatory 2024 11:00 AM EST OT/PT/Speech Visit [facility] [address] [place] [address] Hannah Leger, PENS AND PENCILS REPAIRER [address] [place] [address] Weakness of left lower extremity [R29.898] [facility] Comment on above: Weakness of left low er extremity [R29.898] Start: 09-22-2024 End: 09-22-2024 ambulatory 09/22/2024 11:15 AM EST OT/PT/Speech Visit [facility] [address] [place] [address] Thoennes, McKena, PT, DPT Weakness of left lower extremity [R29.898] [facility] Comment on above: Weakness of left low er extremity [R29.898] Start: 09-15-2024 End: 09-15-2024 ambulatory 09/15/2024 11:15 AM EST OT/PT/Speech Visit [facility] [address] [place] [address] Thoennes, McKena, PT, DPT Weakness of left lower extremity [R29.898] [facility] Comment on above: Weakness of left low er extremity [R29.898] Start: 09-01-2024 End: 09-01-2024 ambulatory 09/01/2024 10:15 AM EDT OT/PT/Speech Visit [facility] [address] [place] [address] O'BabakCarolineNeha, PT Leg weakness ( left) [facility] Comment on above: Leg weakness ( left) Start: 08-25-2024 End: 08-25-2024 ambulatory 08/25/2024 10:15 AM EDT OT/PT/Speech Visit [facility] [address] [place] [address] O'Babak, Neha, PT Leg weakness ( left) [facility] Comment on above: Leg weakness ( left) Start: 08-18-2024 End: 08-18-2024 ambulatory 08/18/2024 12:30 PM EDT OT/PT/Speech Visit [facility] [address] [place] [address] Hannah Leger, JESSE [address] [place] [address] Leg weakness ( left) [facility] Comment on above: Leg weakness ( left) Start: 08-11-2024 End: 08-11-2024 ambulatory 08/11/2024 8:45 AM EDT OT/PT/Speech Visit [facility] [address] [place] [address] ONeha Lundy, PT Leg weakness ( left) [facility] Comment on above: Leg weakness ( left) Start: 02-21-2024 Acute hepatitis 2000 panel - Serum [facility] Start: 02-21-2024 Aldolase [Enzymatic activity/volume] in Serum or Plasma [facility] Start: 02-21-2024 Haptoglobin [Mass/vo lume] in Serum or Plasma [facility] Start: 02-21-2024 IgE [Units/volume] i n Serum or Plasma [facility] Start: 02-21-2024 Serum immunofixation [facility] Start: 02-21-2024 Smooth muscle Ab [Pr esence] in Serum [facility] Start: 01-28-2024 Patient referral [facility] Work Phone: Start: 09-24-2023 Angiotensin converti ng enzyme [Enzymatic activity/volume] in Serum or Plasma [facility] Start: 09-24-2023 Celiac disease screen [facility] Start: 09-24-2023 Ceruloplasmin [Mass/ volume] in Serum or Plasma [facility] Start: 09-24-2023 Copper [Moles/volume ] in Serum or Plasma [facility] Start: 09-24-2023 Haptoglobin [Mass/vo lume] in Serum or Plasma [facility] Start: 09-24-2023 Serum immunofixation [facility] Start: 09-24-2023 Smooth muscle Ab [Pr esence] in Serum [facility] Start: 09-24-2023 Transferrin [Mass/vo lume] in Serum or Plasma [facility] Start: 09-24-2023 [facility] Start: 2017 Lipid panel Lipid Screening [facility] Start: 07-31-2017 End: 07-31-2017 Appointment Appointment [facility] Work Phone: Start: 2001 Hepatitis B Vaccine (1 of 3 - 19+ 3-dose series) Hepatitis B Vaccine (1 of 3 - 19+ 3-dose series) [facility] Start: 2000 Anxiety Screening Anxiety Screening [facility] Start: 2000 Depression Screening Depression Scre ening [facility] Start: 2000 Hepatitis C screening Hepatitis C Sc julisa [facility] Start: 2000 HIV screening HIV Screening [facility] Albumin [Moles/volum e] in Serum or Plasma [facility] Albumin [Moles/volum e] in Serum or Plasma [facility] Albumin/Globulin ratio [facility] Albumin/Globulin ratio [facility] Electrophoresis: [id number] [facility] Electrophoresis: [id number] [facility] Electrophoresis: flor ma globulin [facility] Electrophoresis: flor ma globulin [facility] Globulin measurement [facility] Globulin measurement [facility] Hepatitis A virus Ig M Ab [Presence] in Serum [facility] Hepatitis B core ant ibody measurement, IgM type [facility] Hepatitis B surface antigen measurement [facility] Hepatitis C antibody measurement [facility] IgA [Mass/volume] in Serum or Plasma [facility] IgA [Mass/volume] in Serum or Plasma [facility] IgG [Mass/volume] in Serum or Plasma [facility] IgG [Mass/volume] in Serum or Plasma [facility] IgM [Mass/volume] in Serum or Plasma [facility] IgM [Mass/volume] in Serum or Plasma [facility] Measurement of immunoglobulin A in serum specimen [facility] Neutrophil cytoplasm ic Ab.classic [Units/volume] in Serum [facility] P-ANCA measurement [facility] Patient Education [facility] Work Phone: Patient referral [facility] Work Phone: Protein electrophore sis panel - Serum or Plasma [facility] Protein electrophore sis panel - Serum or Plasma [facility] Tissue transglutamin ase IgA Ab [Units/volume] in Serum [facility] Payers Date Payer Category Payer Medicaid [id number] 2024 Self-pay [id number] 2018 Medicare [id number] 2012 Medicare MEDICARE MEDICAR E A AND B [id number] 2012-Present [phone] [place] [address] Medicare [id number] 2012 Medicare [id number] 1982 Unknown [id number] Unknown [id number] Unknown [id number] [id number] Unknown [id number] [id number] Unknown [id number] [id number] Unknown [id number] [id number] Unknown [id number] [id number] Unknown [id number] [id number] Unknown [id number] 2.16.840.1.718978.3.579.2.462 Unknown [id number] 2.16.840.1.155269.3.579.2.462 Unknown [id number] 2.16.840.1.386775.3.579.2.462 Unknown [id number] [id number] Unknown [id number] 2.16.840.1.651080.3.579.2.462 Unknown [id number] 2.16.840.1.450811.3.579.2.462 Unknown [id number] [id number] Unknown [id number] [id number] Unknown [id number] [id number] Social History Date Type Detail Facility Start: 05-02-2021 End: 01-31-2024 Tobacco smoking status ALIS Unknown if ever smoked [facility] Start: 1980 Sex Assigned At Male [facility] Start: 1980 Sex assigned at Not on file [facility] Start: 08-11-2024 End: 10-13-2024 Gender identity Not on file [facility] Start: 08-11-2024 End: 10-13-2024 History of Social function [facility] National Score (1-10 0), lower number is lower risk 62 [facility] Start: 12-19-2024 Tobacco smoking stat us ALIS Never smoked tobacco (finding) [facility] Start: 05-02-2025 End: 05-14-2025 Tobacco smoking status NHIS Smokes tobacco daily (finding) [facility] Medical Equipment Procedure Code Equipment Code Equipment Origin al Text Equipment Identifier Dates Pen Needle, Diab etic (Bd Ultra-Fine Hilary Pen Needle) 32 gauge x 5/32" needle Start: 01-26-2023 Pen Needle, Diab etic (Bd Ultra-Fine Hilary Pen Needle) 32 gauge x 5/32" needle Start: 01-26-2023 Pen Needle, Diab etic (Bd Ultra-Fine Hilary Pen Needle) 32 gauge x 5/32" needle Start: 01-26-2023 Pen Needle, Diab etic (Bd Ultra-Fine Hilary Pen Needle) 32 gauge x 5/32" needle Start: 03-24-2024 Pen Needle, Diab etic (Bd Ultra-Fine Hilary Pen Needle) 32 gauge x 5/32" needle Start: 01-26-2023 End: 03-24-2024 Pen Needle, Diab etic (Bd Ultra-Fine Hilary Pen Needle) 32 gauge x 5/32" needle Start: 03-24-2024 Pen Needle, Diab etic (Bd Ultra-Fine Hilary Pen Needle) 32 gauge x 5/32" needle Start: 01-26-2023 End: 03-24-2024 Pen Needle, Diab etic (Bd Ultra-Fine Hilary Pen Needle) 32 gauge x 5/32" needle Start: 03-24-2024 Pen Needle, Diab etic (Bd Ultra-Fine Hilary Pen Needle) 32 gauge x 5/32" needle Start: 01-26-2023 End: 03-24-2024 Pen Needle, Diab etic (Bd Ultra-Fine Hilary Pen Needle) 32 gauge x 5/32" needle Start: 03-24-2024 Pen Needle, Diab etic (Bd Ultra-Fine Hilary Pen Needle) 32 gauge x 5/32" needle Start: 01-26-2023 End: 03-24-2024 Mental Status Date Assessment Result Facility 12-19-2024 Cognitive function Level Of Cons ciousness Awake;Alert;Appropriate;Follow s Commands [facility] Work Phone: Clinical Notes 07-30-2024 to 05-14-2025 Note Date & Type Note Facility 05-14-2025 Discharge summary Note Date/Time May 14, 2025 9:27pm [facility] Medical Records Department [address] [place] [address] Emergency Department Summary 05/14/25 MR#: [id number] Acct: [id number] Name: DANNY HEATH Rep #:[id number] : 1980 44 From: Timmy Benites DO PCP: Dr. Denise Reyes MD Status:RE G ER Location: ED HPI History of Present Illness Chief Complaint: Mental Health Narrative Narrative: Patient is a 44-year-old male with past medical history of bipolar disorder, hypothyroidism, diabetes who presented to the emergency department via EMS afterhaving an argument with his father earlier. Patient has a legal guardian his sister and she notes that he has not been taking care of himself recently she notes that he was recently released from a psychiatric facility. She states that the living situation at the parent home was not safe currently and notes that he has been off his meds for a few days ever since being getting out. She was concerned therefore she had him sent here for further evaluation management. Patient denies any suicidal homicidal ideations [facility] Medical History Dextromethorphan use disorder, mild, abuse Bipolar disorder Contact dermatitis due to poison los Diabetes Home Medications ?Medication ?Instructions ?Recorded ?Last Taken ?Type cholecalciferol (vitamin D3) 50 50 mcg PO DAILY Unknown History mcg (2,000 unit) capsule flash glucose scanning reader #1 ea 12/24/23 Unknown R x (FreeStyle Aniya 2 [place]) lithium carbonate 450 mg 450 mg PO DAILY 30 days #60 tabs 01/31/24 Unknown History tablet,extended release lurasidone 40 mg tablet (Latuda) 60 mg PO DAILY Unknown History melatonin 5 mg tablet 5 mg PO HS 01/31/24 Unknown History BD Ultra-Fine Hilary Pen Needle 32 #100 ea 03/24/24 Unkn own Rx gauge x 5/32" (pen needle, diabetic) flash glucose sensor (FreeStyle #6 ea 05/15/24 Unknown Rx Aniya 2 Sensor kit) semaglutide 1 mg/dose (4 mg/3 mL) 1 mg (0.75 mL) subcu t QWEEK #9 mL 05/15/24 Un known Rx subcutaneous pen injector (Ozempic) metformin 1,000 mg tablet 1,000 mg PO BIDWMEAL #60 tab s 07/28/24 Unknown Rx insulin degludec 100 unit/mL (3 30 unit subcut DAILY 0 05/02/25 Unknown History mL) subcutaneous pen (Tresiba FlexTouch U-100 insulin) insulin lispro 100 unit/mL 1 sliding scale dose subcut PRN 05/02/25 Unknown History subcutaneous pen PRN hyperglycemia levothyroxine 200 mcg tablet 175 mcg PO DAILY 05/02/25 Unknown History rosuvastatin 5 mg tablet 40 mg PO DAILY 05/02/25 Unkn own History levothyroxine 175 mcg tablet 175 mcg PO DAILY 05/14/25 Unknown History melatonin 5 mg capsule 5 mg PO QHS 05/14/25 Unknown History melatonin 5 mg tablet 5 mg PO QHS 05/14/25 Unknown History naloxone 4 mg/actuation nasal spray spray intranasal 0 05/14/25 Unknown History rosuvastatin 40 mg tablet 40 mg PO DAILY 05/14/25 Unkn own History topiramate 25 mg tablet 25 mg PO BID depressive diso rder 05/14/25 Unknown History Allergy/AdvReac Type Severity Reaction Status Date / Time No Known Allergies Allergy Verified 05/14/25 13:52 Family History Other Alcohol abuse Anemia Arthritis Diabetes H/O transfusion of whole blood Heart disease High cholesterol Hypertension Mental disorder Myocardial infarction Thyroid disorder Social History household members: family housing: house Smoking Status: Current every day smoker tobacco type: cigars alcohol intake: never substance use type: does not use what type of physical activity do you participate in: walking frequency: daily ROS ROS ED ROS Narrative Constitutional: Denies fevers, chills, headaches Eyes: Denies double vision Cardiovascular: Denies chest pain Respiratory: Denies shortness of breath Abdomen: Denies abdominal pain nausea vomit diarrhea : Denies any urinary symptoms Neurological: Denies any numbness, wheeze, tingling Musculoskeletal: Denies any back pain Skin: Denies any rashes or lesions EXAM Physical Exam Narrative Exam Narrative: General: Patient was lying in bed rest comfortably did not appear to be acute distress Head: Atraumatic, normocephalic Eyes: PERRL bilaterally, EOMI blood, no conjunctival injection noted Neck: Soft, supple, trachea midline Cardiovascular: Regular rate and rhythm no murmurs gallops rubs noted Respiratory: Clear to auscultation bilaterally Extremities: +5/5 strength noted in the bilateral upper and lower extremities Neurological: Patient following commands knew that he was at [facility] year is 2024 Skin: Warm, dry, intact no rashes or lesions noted Psychiatric: Calm, cooperative Const Vital Signs: 05/14/25 13:50 05/14/25 15:50 05/14/25 17:00 Temperature 97.1 F L Temperature Source Temporal Pulse Rate 114 H 88 90 Respiratory Rate 14 Blood Pressure 128/96 H 130/90 H 128/92 H Blood Pressure Mean 106 103 104 Pulse Ox 98 100 Oxygen Delivery Method Room Air Room Air 05/14/25 19:00 05/14/25 20:55 Temperature Temperature Source Pulse Rate 88 85 Respiratory Rate 14 16 Blood Pressure 120/97 H 119/83 H Blood Pressure Mean 104 95 Pulse Ox 100 100 Oxygen Delivery Method Room Air Room Air MDM MDM MDM Narrative Medical decision making narrative: Patient is a 44-year-old male who presented to the emergency department via EMS with chief complaint of needing medical screening exam. On differential diagnose includes but not limited to bipolar disorder, anxiety, depression, medication noncompliance. Social work did evaluate the patient and spoke with his legal guardian and they feel that he is not taking care of himself not taking his medications and feel that he does require placement for inpatient stabilization. We discussed with the patient and he is agreeable with this. He was upset about this decision butis agreeable. Patient had blood work added onto for medical clearance. Patient's CBC was reviewed and showed a white blood cell count of 13,000, hemoglobin 13.6, sodium was normal at 139, potassium of 4, creatinine normal at 0.72. Patient is medically cleared. Patient still pending placement patient will be signed out to overnight providerto follow-up on ultimate disposition and placement into psychiatric facility. Lab Data Labs: Laboratory Results - last 24 hr 05/14/25 05/14/25 18:28 18:35 WBC 13.1 H RBC 4.54 L Hgb 13.6 Hct 41.9 MCV 92.3 MCH 30.0 MCHC 32.5 RDW Std Deviation 48.6 H RDW Coeff of Sadaf 14.2 Plt Count 397 MPV 9.2 Immature Gran % (Auto) 0.300 Neut % (Auto) 64.3 Lymph % (Auto) 23.2 [place] % (Auto) 8.3 Eos % (Auto) 3.4 Baso % (Auto) 0.5 Absolute Neuts (auto) 8.4 H Absolute Lymphs (auto) 3.04 Nucleated RBC % 0 Sodium 139 Potassium 4.0 Chloride 104 Carbon Dioxide 21.1 Anion Gap 14 BUN 18 Creatinine 0.72 Estim Creat Clear Calc 138.00 Est GFR (MDRD) Non-Af 117 BUN/Creatinine Ratio 25.5 H Glucose 86 Calcium 10.1 Urine Opiates Screen NEGATIVE U Buprenorphine Qual NEGATIVE Ur Oxycodone Screen NEGATIVE Urine Methadone Screen NEGATIVE Urine Fentanyl Screen NEGATIVE Ur Barbiturates Screen NEGATIVE Ur Phencyclidine Scrn NEGATIVE Ur Amphetamines Screen NEGATIVE U Benzodiazepines Scrn NEGATIVE Urine Cocaine Screen NEGATIVE U Cannabinoids Screen NEGATIVE Ethyl Alcohol < 10.1 Discharge Plan Triage Chief Complaint: Mental Health ED Provider: Timmy Benites Dx/Rx/DC Orders Clinical Impression: Bipolar disorder, History of hypothyroidism, History of diabetes mellitus Prescriptions: No Action lithium carbonate 450 mg tablet extended release 450 mg PO DAILY 30 Days Qty: 60 Patient Comments: Rx Instructions: 900 mg qhs Latuda 40 mg tablet 60 mg PO DAILY melatonin 5 mg tablet 5 mg PO HS Patient Comments: TAKE 1 TABLET BY MOUTH AT BEDTIME cholecalciferol (vitamin D3) 50 mcg (2,000 unit) capsule 50 mcg PO DAILY (DME) FreeStyle Aniya 2 [place] Misc See Rx Instructions .Route Qty: 1 0RF Rx Instructions: As directed Ozempic 1 mg/dose (4 mg/3 mL) pen injector 1 mg subcut QWEEK Qty: 9 0RF (DME) FreeStyle Aniya 2 Sensor Kit See Rx Instructions .Route Qty: 6 0RF Rx Instructions: 1 sensor q 14 days topiramate 25 mg tablet 25 mg PO BID rosuvastatin 40 mg tablet 40 mg PO DAILY naloxone 4 mg/actuation spray,non-aerosol INTRANASAL melatonin 5 mg capsule 5 mg PO QHS melatonin 5 mg tablet 5 mg PO QHS levothyroxine 175 mcg tablet 175 mcg PO DAILY insulin lispro 100 unit/mL insulin pen 1 sliding scale dose SUBCUT PRN PRN (Reason: hyperglycemia) Patient Comments: INJECT PER SLIDING SCALE DIRECTED: IF BLOOD GLUCOSE IS 250-299: 2 UNITS, 300-349:4 UNITS, 350-400: 6 UNITS, GREATER THAN 400: 8 UNITS. DO NOT INJECT MORETHAN EVERY 8 HOURS. insulin degludec [Tresiba FlexTouch U-100] 100 unit/mL (3 mL) insulin pen 30 unit subcut DAILY levothyroxine 200 mcg tablet 175 mcg PO DAILY rosuvastatin 5 mg tablet 40 mg PO DAILY (DME) pen needle, diabetic [BD Ultra-Fine Hilary Pen Needle] 32 gauge x 5/32" needle See Rx Instructions .ROUTE .MEDSUPPLY Qty: 100 8RF Rx Instructions: tid metformin 1,000 mg tablet 1,000 mg PO BIDWMEAL Qty: 60 0RF Primary Care Provider: Denise Reyes Referrals: Denise Reyes MD [Primary Care Provider] - Print Language: Hungarian Disposition Disposition: Psychiatric Hospital or Unit What to do if you have Problems For any increased pain, shortness of breath, bleeding, nausea or vomiting, chestpain, or any unexpected problems, contact your Primary Care Provider. Call [facility] ([phone]) or report to the closest Emergency Room. Call 911 if necessary. 05/14/252126 <Electronically signed by Timmy Benites DO> Cosigner Signature (if applicable): CC: Dr. Denise Reyes MD ~ Signed [facility] Work Phone: [phone] 498-573807-10-2025 Discharge summary [facility] Medical Records Department [address] [place] [address] Emergency Department Summary 05/14/25 MR#: [id number] Acct: [id number] Name: DANNY HEATH Rep #:[id number] : 1980 44 From: Timmy Benites DO PCP: Dr. Denise Reyes MD Status:RE G ER Location: ED HPI History of Present Illness Chief Complaint: Mental Health Narrative Narrative: Patient is a 44-year-old male with past medical history of bipolar disorder, hypothyroidism, diabetes who presented to the emergency department via EMS afterhaving an argument with his father earlier. Patient has a legal guardian his sister and she notes that he has not been taking care of himself recently she notes that he was recently released from a psychiatric facility. She states that the living situation at the parent home was not safe currently and notes that he has been off his meds fora few days ever since being getting out. She was concerned therefore she had him sent here for further evaluation management. Patient denies any suicidal homicidal ideations [facility] Medical History Dextromethorphan use disorder, mild, abuse Bipolar disorder Contact dermatitis due to poison los Diabetes Home Medications ?Medication ?Instructions ?Recorded ?Last Taken ?Type cholecalciferol (vitamin D3) 50 50 mcg PO DAILY Unknown History mcg (2,000 unit) capsule flash glucose scanning reader #1 ea 12/24/23 Unknown R x (FreeStyle Aniya 2 [place]) lithium carbonate 450 mg 450 mg PO DAILY 30 days #60 tabs 01/31/24 Unknown History tablet,extended release lurasidone 40 mg tablet (Latuda) 60 mg PO DAILY Unknown History melatonin 5 mg tablet 5 mg PO HS 01/31/24 Unknown History BD Ultra-Fine Hilary Pen Needle 32 #100 ea 03/24/24 Unkn own Rx gauge x 5/32" (pen needle, diabetic) flash glucose sensor (FreeStyle #6 ea 05/15/24 Unknown Rx Aniya 2 Sensor kit) semaglutide 1 mg/dose (4 mg/3 mL) 1 mg (0.75 mL) subcu t QWEEK #9 mL 05/15/24 Un known Rx subcutaneous pen injector (Ozempic) metformin 1,000 mg tablet 1,000 mg PO BIDWMEAL #60 tab s 07/28/24 Unknown Rx insulin degludec 100 unit/mL (3 30 unit subcut DAILY 0 05/02/25 Unknown History mL) subcutaneous pen (Tresiba FlexTouch U-100 insulin) insulin lispro 100 unit/mL 1 sliding scale dose subcut PRN 05/02/25 Unknown History subcutaneous pen PRN hyperglycemia levothyroxine 200 mcg tablet 175 mcg PO DAILY 05/02/25 Unknown History rosuvastatin 5 mg tablet 40 mg PO DAILY 05/02/25 Unkn own History levothyroxine 175 mcg tablet 175 mcg PO DAILY 05/14/25 Unknown History melatonin 5 mg capsule 5 mg PO QHS 05/14/25 Unknown History melatonin 5 mg tablet 5 mg PO QHS 05/14/25 Unknown History naloxone 4 mg/actuation nasal spray spray intranasal 0 05/14/25 Unknown History rosuvastatin 40 mg tablet 40 mg PO DAILY 05/14/25 Unkn own History topiramate 25 mg tablet 25 mg PO BID depressive diso rder 05/14/25 Unknown History Allergy/AdvReac Type Severity Reaction Status Date / Time No Known Allergies Allergy Verified 05/14/25 13:52 Family History Other Alcohol abuse Anemia Arthritis Diabetes H/O transfusion of whole blood Heart disease High cholesterol Hypertension Mental disorder Myocardial infarction Thyroid disorder Social History household members: family housing: house Smoking Status: Current every day smoker tobacco type: cigars alcohol intake: never substance use type: does not use what type of physical activity do you participate in: walking frequency: daily ROS ROS ED ROS Narrative Constitutional: Denies fevers, chills, headaches Eyes: Denies double vision Cardiovascular: Denies chest pain Respiratory: Denies shortness of breath Abdomen: Denies abdominal pain nausea vomit diarrhea : Denies any urinary symptoms Neurological: Denies any numbness, wheeze, tingling Musculoskeletal: Denies any back pain Skin: Denies any rashes or lesions EXAM Physical Exam Narrative Exam Narrative: General: Patient was lying in bed rest comfortably did not appear to be acute distress Head: Atraumatic, normocephalic Eyes: PERRL bilaterally, EOMI blood, no conjunctival injection noted Neck: Soft, supple, trachea midline Cardiovascular: Regular rate and rhythm no murmurs gallops rubs noted Respiratory: Clear to auscultation bilaterally Extremities: +5/5 strength noted in the bilateral upper and lower extremities Neurological: Patient following commands knew that he was at [facility] year is 2024 Skin: Warm, dry, intact no rashes or lesions noted Psychiatric: Calm, cooperative Const Vital Signs: 05/14/25 13:50 05/14/25 15:50 05/14/25 17:00 Temperature 97.1 F L Temperature Source Temporal Pulse Rate 114 H 88 90 Respiratory Rate 14 Blood Pressure 128/96 H 130/90 H 128/92 H Blood Pressure Mean 106 103 104 Pulse Ox 98 100 Oxygen Delivery Method Room Air Room Air 05/14/25 19:00 05/14/25 20:55 Temperature Temperature Source Pulse Rate 88 85 Respiratory Rate 14 16 Blood Pressure 120/97 H 119/83 H Blood Pressure Mean 104 95 Pulse Ox 100 100 Oxygen Delivery Method Room Air Room Air MDM MDM MDM Narrative Medical decision making narrative: Patient is a 44-year-old male who presented to the emergency department via EMS with chief complaint of needing medical screening exam. On differential diagnose includes but not limited to bipolar disorder, anxiety, depression, medication noncompliance. Social work did evaluate the patient and spoke with his legal guardian and they feel that he is nottaking care of himself not taking his medications and feel that he does require placement for inpatient stabilization. We discussed with the patient and he is agreeable with this. He was upset about this decision butis agreeable. Patient had blood work added onto for medical clearance. Patient's CBC was reviewed and showed a white blood cell count of 13,000, hemoglobin 13.6, sodium was normal at 139, potassium of 4, creatinine normal at 0.72. Patient is medically cleared. Patient still pending placement patient will be signed out to overnight providerto follow-up on ultimate disposition and placement into psychiatric facility. Lab Data Labs: Laboratory Results - last 24 hr 05/14/25 05/14/25 18:28 18:35 WBC 13.1 H RBC 4.54 L Hgb 13.6 Hct 41.9 MCV 92.3 MCH 30.0 MCHC 32.5 RDW Std Deviation 48.6 H RDW Coeff of Sadaf 14.2 Plt Count 397 MPV 9.2 Immature Gran % (Auto) 0.300 Neut % (Auto) 64.3 Lymph % (Auto) 23.2 [place] % (Auto) 8.3 Eos % (Auto) 3.4 Baso % (Auto) 0.5 Absolute Neuts (auto) 8.4 H Absolute Lymphs (auto) 3.04 Nucleated RBC % 0 Sodium 139 Potassium 4.0 Chloride 104 Carbon Dioxide 21.1 Anion Gap 14 BUN 18 Creatinine 0.72 Estim Creat Clear Calc 138.00 Est GFR (MDRD) Non-Af 117 BUN/Creatinine Ratio 25.5 H Glucose 86 Calcium 10.1 Urine Opiates Screen NEGATIVE U Buprenorphine Qual NEGATIVE Ur Oxycodone Screen NEGATIVE Urine Methadone Screen NEGATIVE Urine Fentanyl Screen NEGATIVE Ur Barbiturates Screen NEGATIVE Ur Phencyclidine Scrn NEGATIVE Ur Amphetamines Screen NEGATIVE U Benzodiazepines Scrn NEGATIVE Urine Cocaine Screen NEGATIVE U Cannabinoids Screen NEGATIVE Ethyl Alcohol < 10.1 Discharge Plan Triage Chief Complaint: Mental Health ED Provider: Timmy Benites Dx/Rx/DC Orders Clinical Impression: Bipolar disorder, History of hypothyroidism, History of diabetes mellitus Prescriptions: No Action lithium carbonate 450 mg tablet extended release 450 mg PO DAILY 30 Days Qty: 60 Patient Comments: Rx Instructions: 900 mg qhs Latuda 40 mg tablet 60 mg PO DAILY melatonin 5 mg tablet 5 mg PO HS Patient Comments: TAKE 1 TABLET BY MOUTH AT BEDTIME cholecalciferol (vitamin D3) 50 mcg (2,000 unit) capsule 50 mcg PO DAILY (DME) FreeStyle Aniya 2 [place] Misc See Rx Instructions .Route Qty: 1 0RF Rx Instructions: As directed Ozempic 1 mg/dose (4 mg/3 mL) pen injector 1 mg subcut QWEEK Qty: 9 0RF (DME) FreeStyle Aniya 2 Sensor Kit See Rx Instructions .Route Qty: 6 0RF Rx Instructions: 1 sensor q 14 days topiramate 25 mg tablet 25 mg PO BID rosuvastatin 40 mg tablet 40 mg PO DAILY naloxone 4 mg/actuation spray,non-aerosol INTRANASAL melatonin 5 mg capsule 5 mg PO QHS melatonin 5 mg tablet 5 mg PO QHS levothyroxine 175 mcg tablet 175 mcg PO DAILY insulin lispro 100 unit/mL insulin pen 1 sliding scale dose SUBCUT PRN PRN (Reason: hyperglycemia) Patient Comments: INJECT PER SLIDING SCALE DIRECTED: IF BLOOD GLUCOSE IS 250-299: 2 UNITS, 300- 349:4 UNITS, 350-400: 6 UNITS, GREATER THAN 400: 8 UNITS. DO NOT INJECT MORETHAN EVERY 8 HOURS. insulin degludec [Tresiba FlexTouch U-100] 100 unit/mL (3 mL) insulin pen 30 unit subcut DAILY levothyroxine 200 mcg tablet 175 mcg PO DAILY rosuvastatin 5 mg tablet 40 mg PO DAILY (DME) pen needle, diabetic [BD Ultra-Fine Hilary Pen Needle] 32 gauge x 5/32" needle See Rx Instructions .ROUTE .MEDSUPPLY Qty: 100 8RF Rx Instructions: tid metformin 1,000 mg tablet 1,000 mg PO BIDWMEAL Qty: 60 0RF Primary Care Provider: Denise Reyes Referrals: Denise Reyes MD [Primary Care Provider] - Print Language: Hungarian Disposition Disposition: Psychiatric Hospital or Unit What to do if you have Problems For any increased pain, shortness of breath, bleeding, nausea or vomiting, chestpain, or any unexpected problems, contact your Primary Care Provider. Call [facility] ([phone]) or report tothe closest Emergency Room. Call 911 if necessary. 05/14/252126 Cosigner Signature (if applicable): CC: Dr. Denise Reyes MD ~ Signed [facility]06-28-2025 Radiology Diagnostic study note [facility] Imaging Services [address] [place] [address] Brain/Head without Contrast MR#: [id number] Acct: [id number] Name: DANNY HEATH Rep #: [id number] : 1980 M 44 From: Lorin Baird MD PCP: Dr. Denise Reyes MD Status: RE G ER Study:Brain/Head without Contrast Date of Exa m: 05/02/25 Exam# [id number] Ordering Dr: Chayo Mckenzie DO PROCEDURE: BRAIN/HEAD WITHOUT CONTRAST 05/02/2025 REASON FOR EXAM: SLURRED SPEECH TECHNIQUE: BRAIN/HEAD WITHOUT CONTRAST Coronal and Sagittal reconstruction series were provided. One or more dose reduction techniques were used (e.g., Automated exposure control, adjustment of the mA and/or kV according to patient size, use of iterative reconstruction technique. RADIATION DOSE SUMMARY: CTDlvol: 45 mGy DLP: 779 mGycm COMPARISON: No FINDINGS: Minimal white matter change. No atrophy. No definite acute abnormal brain densities. No intracranial hemorrhage. No hydrocephalus 6 or midline shift. No acute scalp or skull pathology. Left maxillary sinus opacification. CT/Brain/Head without Contrast IMPRESSION: No acute intracranial findings. Reading Location: [place] [address] CC: Dr. Denise Reyes MD; Dr. Narayan Mckenzie DO ~ Cold Strip Roller: Signed [facility]06-28-2025 Radiology Diagnostic study note [facility] Imaging Services [address] [place] [address] Chest 1 View (Portable) MR#: [id number] Acct: [id number] Name: DANNY HEATH Rep #: [id number] : 1980 M 44 From: Lorin Baird MD PCP: Dr. Denise Reyes MD Status: RE G ER Study:Chest 1 View (Portable) Date of Exam: 05/02/25 Exam# [id number] Ordering Dr: Chayo Mckenzie DO PROCEDURE: CHEST 1 VIEW (PORTABLE) 05/02/2025 REASON FOR EXAM: WEAKNESS TECHNIQUE: Frontal view of the chest. COMPARISON: No FINDINGS: Normal heart size. Well inflated lungs. No consolidation, effusion, or pneumothorax. RAD/Chest 1 View (Portable) IMPRESSION: No acute findings Reading Location: [place] [address] CC: Dr. Denise Reyes MD; Dr. Narayan Mckenzie DO ~ [place] Roller: Signed [facility]12-09-2024 NoteHNO ID: [id number] Author: NEHA DRIVER PT Service: ? Author [...] included: Therapeutic exercise, Neuromuscular re-education, Therapeutic activities, Self-mcfp management, and Gait training. Goals for Episode of Care: established 07/30/24 Goals updated on 09/01/2024. Goals updated on 10/13/2024. Canalou in home exercise program.-- MET Patient will [...] cues only Stair Training: ascend and descend 4x6" therapy steps x 6 sets , 2 sets with B UE support, 2 sets with x1 UE support, and 3rd set with no UE support - each reciprocal pattern ascending and descending Skilled Intervention: Patient was provided supervision during pre-gait/gait kirsten (more content not included)...[facility]12-09-2024 History of Present illness Narrative* Neha Driver, PT - 10/13/2024 10:04 AM EST Images from the original note were not [...] from Physical Therapy services due to goal achievementand maximal benefit.. Patient was seen for 10 visits from Start of Care Date: 07/30/24 to 10/13/2024 treatment included: Therapeutic exercise, Neuromuscular re-education, Therapeutic activities, Self-mcfp management, and Gait training. Goals for Episode of Care: established 07/30/24 Goals updated on 09/01/2024. Goals updated on 10/13/2024. Canalou in home exercise program.-- MET Patient will [...] cues only Stair Training: ascend and descend 4x6" therapy steps x 6 sets , 2 [...] 1045 Neha Driver PT [facility] NoteHNO ID: [id number] Author: NEHA DRIVER PT Service: ? Author [...] thigh felt with going up step, otherwise "its not that bad" and pt. states "I don't call it pain," Pain: Pain Pain Level: (does not rate, states it's not bad, only feels it with steps) Pain Location: Thigh - Left Description: Pressure Post Treatment Pain Post Treatment Pain Level: No Change Post Treatment Pain Location: Knee - Left OBJECTIVE MEASURES WITH LEVEL OF FUNCTION: TREATMENT: Therapeutic Exercise: 1: Infoharmoni stepper, seat 15, 1:1 throughout, subjective collected, [...] Session Stop Time : 1052 Neha Driver, [facility]12-02-2024 History of Present illness Narrative* Neha Driver, PT - 10/06/2024 10:13 AM EST Episode Visit Count: 9 Therapist That Will [...] thigh felt with going up step, otherwise "its not that bad" andpt. states "I don't call it pain," Pain: Pain Pain Level: (does not rate, [...] exercises in regards to decreasing fatigue , includingbalance, increase ease of ADL, and ROM and [...] 1052 Neha Driver PT [facility]-2024 NoteHNO ID: [id number] Author: NEHA DRIVER PT Service: ? Author [...] 1057 Session Stop Time : 1137 JESSE Garcia, [facility]11-25-2024 History of Present illness Narrative* Neha Driver, PT - 2024 10:59 AM EST Episode Visit Count: 8 Therapist That Will Accept/Oversee The Plan Of Care: Neha Driver Start of Care Date: 07/30/24 Onset Date: 04/29/24 Plan of Care Certification Date: 09/01/24 Next Certification Due Date: 10/13/24 Patient Identified by Name and Date of : Yes REHABILITATION AND SPORTS THERAPY PHYSICAL THERAPY TREATMENT NOTE ASSESSMENT: Danyn Heath tolerated the session with fatigue and [...] 1137 JESSE Garcia PT documented [facility]-2024 NoteHNO ID: [id number] Author: SEBASTIAN MARROQUIN PT, DPT Service: ? [...] tolerated, SUBJECTIVE: Patient feels his leg is "healing a little bit." Does stairs at home, but none of [...] Stop Time : 1156 [facility] History of Present illness Narrative* Sebastian Marroquin PT, DPT - 09/22/2024 11:19 AM EST Episode Visit Count: 7 Therapist That Will [...] able to tolerate leg press without leg tinglingtoday. The patient will continue to benefit from ongoing skilled physical therapy to progress toward set goals. PLAN FOR NEXT VISIT: Progress LE strengthening as tolerated, SUBJECTIVE: Patient feels his leg is "healing a little bit." Does stairs at home, but none of [...] Sebastian Marroquin PT, DPT documented [facility] History of Present illness Narrative* Sebastian Marroquin PT, DPT - 09/15/2024 11:46 AM EST Program_ID:[id number] Access Code: [email or web address] URL: [email or web address] Date: 09-15-2024 Prepared By: Neha Driver Program [...] weekly - 3 sets - 10 reps * Sebastian Marroquin PT, DPT - 09/15/2024 11:28 AM EST Episode Visit Count: 6 Therapist That Will [...] 7: Supine hip flexor stretch off EOB [id number] L 8: ADELIA x3 minutes to end [...] Sebastian Marroquin PT, DPT documented in this encounterK[facility]11-11-2024 NoteHNO ID: [id number] Author: SEBASTIAN MARROQUIN PT, DPT Service: ? [...] 7: Supine hip flexor stretch off EOB 2b19rep L 8: ADELIA x3 minutes to end [...] Stop Time : 1155 Sebastian [facility]quin [facility]-04-20[facility] History of Present illness Narrative* Sebastian Marroquin PT, DPT - 09/08/2024 1:23 PM EST Program_ID:[id number] Access Code: [email or web address] URL: [email or web address] Date: 09-08-2024 Prepared By: Neha Driver Program [...] weekly - 2 sets - 15-20 reps * Sebastian Marroquin PT, DPT - 09/08/2024 12:39 PM EST Episode Visit Count: 5 Therapist That Will [...] no familiar knee pain per report. Tolerated increasedweight with leg press well this date. Significant difficulty with standing hip abduction verse pinkTB on the left due to weakness. Revised [...] Post Treatment Pain Post Treatment Pain Level: ("sore") Post Treatment Pain Location: Knee - Left [...] x20 bilat 7: lat step ups 2x12, 6" each side x1 UE support Skilled Intervention: [...] Sebastian Marroquin PT, DPT documented in this [facility]11-04-2024 NoteHNO ID: [id number] Author: SEBASTIAN MARROQUIN PT, DPT Service: ? [...] Post Treatment Pain Post Treatment Pain Level: ("sore") Post Treatment Pain Location: Knee - Left [...] x20 bilat 7: lat step ups 2x12, 6" each side x1 UE support Skilled Intervention: [...] Stop Time : 1326 Sebastian Marroquin PT, [facility]10-28-2024 NoteHNO ID: [id number] Author: NEHA DRIVER PT Service: ? Author [...] Care: established 07/30/24 Goals updated on 09/01/2024. Canalou in home exercise program.-- PROGRESSING Patient will [...] Patient to be seen for Gait Training (58697), Self-mcfp management (52982), Therapeutic activities (05478), Manual therapy (58231), Neuromuscular re-education (20155), Therapeutic exercise (23462) PLAN FOR NEXT VISIT: increase leg press [...] decreasing fatigue , includin (more content not included)...[facility]-01-20[facility] History of Present illness Narrative* Neha Drivre, PT - 09/01/2024 10:04 AM EDT Images from the original note were not [...] stair negotiation and weight bearing. The patient hasprogressed toward goals. Patient continues to present with impairments in ADL's, balance, gait, independence in exercise, joint mobility, overall function, patient reported outcome measures, range ofmotion, strength, and symptom management that interfere with walking . Current prognosis is Fair due to: poor historian, coping skills, clinical presentation, multiple co- morbidities, chronic natureof impairments, Prognosis may be improved by positive past response to therapy. The patient will benefit from continued skilled therapy services to meet the updated goals for this plan of care as note d below. Goals for Episode of Care: established 07/30/24 Goals updated on 09/01/2024. Canalou in home exercise program.-- PROGRESSING Patient will [...] Patient to be seen for Gait Training (43838), Self-mcfp management (92727), Therapeutic activities (08487), Manual therapy (44950), Neuromuscular re- education (04437), Therapeutic exercise (60919) PLAN FOR NEXT VISIT: increase leg press [...] exercises in regards to decreasing fatigue , includingbalance, increase ease of ADL, and ROM and [...] Device: none Assist Level: indep Stair Traininx 6" steps ascending and descending with reciprocal pattern, [...] 1043 Neha Driver PT [facility]10[facility] History of Present illness Narrative* Neha Driver, PT - 08/25/2024 10:38 AM EDT Program_ID:[id number] Access Code: [email or web address] URL: [email or web address] Date: 08-25-2024 Prepared By: Neha Driver Program [...] weekly - 1 sets - 3 reps * Neha Driver, PT - 08/25/2024 10:05 AM EDT Episode Visit Count: 3 Therapist That Will [...] for trunk posture and to avoid excessive supervisor wash house on HR . The patient will continue to benefit from ongoing skilled physical therapy to progress toward set goals. Planned Treatment Interventions: Gait Training (26453), Self-mcfp management (65132), Therapeutic activities (55689), Manual therapy (90853), Neuromuscular re-education (39097), Therapeutic exercise (52442) PLAN FOR NEXT VISIT: assess symptom resposne [...] subjective collected 2: fwd step ups 1x15, 6" each side x2 UE support 3: fwd step ups 3x15, 6" each side x1 UE support 4: standing hip extension at // bars 4x15 each side 5: seated HS stretch 3x30 sec each side 6: lat step ups 1x15, 6" each side x2 UE support 7: lat step ups 3x15, 6" each side x1 UE support (LLE fatigue [...] 1051 Neha Driver PT documented in [facility]10-[facility]-2024 NoteHNO ID: [id number] Author: NEHA DRIVER PT Service: ? Author [...] for trunk posture and to avoid excessive supervisor wash house on HR . The patient will continue to benefit from ongoing skilled physical therapy to progress toward set goals. Planned Treatment Interventions: Gait Training (96337), Self-mcfp management (44201), Therapeutic activities (43331), Manual therapy (43096), Neuromuscular re-education (45480), Therapeutic exercise (88493) PLAN FOR NEXT VISIT: assess symptom resposne [...] subjective collected 2: fwd step ups 1x15, 6" each side x2 UE support 3: fwd step ups 3x15, 6" each side x1 UE support 4: standing hip extension at // bars 4x15 each side 5: seated HS stretch 3x30 sec each side 6: lat step ups 1x15, 6" each side x2 UE support 7: lat step ups 3x15, 6" each side x1 UE support (LLE fatigue [...] 1011 Session Stop Time : 1051 Neha Driver, [facility]10-07-2024 History of Present illness Narrative* Neha Driver, PT - 08/11/2024 9:07 AM EDT Program_ID:[id number] Access Code: [email or web address] URL: [email or web address] Date: 08-11-2024 Prepared By: Neha Driver Program Notes Exercises - Supine Sciatic Nerve Backus - 2 x daily - 7 x [...] weekly - 4 sets - 12 reps * Neha Driver, PT - 08/11/2024 8:40 AM EDT Episode Visit Count: 2 Therapist That Will [...] Therapeutic Exercise: 1: *Access Code: [email or web address] URL: [email or web address] Date: 08/11/2024 Prepared by: Neha Gayle Exercises - Supine Sciatic Nerve Backus - 2 x daily - 7 x weekly - 3 sets - 5 reps- 2 hold - Sit to Stand with [...] facilitated with verbal, visual, and tactile cueing. Self-Fdc Management: 1: advised slow controlled performance of [...] 919 Neha Driver PT documented in [facility]10-[facility]-2024 NoteHNO ID: [id number] Author: NEHA DRIVER PT Service: ? Author [...] Therapeutic Exercise: 1: *Access Code: [email or web address] URL: [email or web address] Date: 08/11/2024 Prepared by: Neha Driver Exercises - Supine Sciatic Nerve Backus - 2 x daily - 7 x [...] facilitated with verbal, visual, and tactile cueing. Self-Fdc Management: 1: advised slow controlled performance of [...] Time (minutes): 40 Session Start Time : 40 Session Stop Time : 919 Neha Driver [facility]09-25-2024 NoteHNO ID: [id number] Author: NEHA DRIVER, PT Service: ? Author [...] Goals for Episode of Care: established 07/30/24 Canalou in home exercise program. Patient will decrease [...] Planned: 6 Planned Treatment Interventions: Gait Training (98260), Self-mcfp management (19701), Therapeutic activities (15114), Manual therapy (17170), Neuromuscular re-education (49765), Therapeutic exercise (76804) PLAN FOR NEXT VISIT: Patient demonstrates good [...] weekend. Pt. lives with his parents in [place]. Patient Goals: walking up and down stairs [...] Knee Presents with Comment (more content not included)...[facility] History of Present illness Narrative* Neha Driver, PT - 07/30/2024 11:48 AM EDT Images from the original note were not [...] Outcome Measures Information System) due to family reportsof pt. Being a limited historian. Prognosis for therapy is Fair due to: poor historian, coping skills, clinical presentation, multiple co- morbidities, chronic nature of impairments . He will benefitfrom skilled therapy services to meet the goals established for this plan of care as noted below. Goals for Episode of Care: established 07/30/24 Canalou in home exercise program. Patient will decrease [...] Planned: 6 Planned Treatment Interventions: Gait Training (73734), Self-mcfp management (92983), Therapeutic activities (48103), Manual therapy (35315), Neuromuscular re-education (47224), Therapeutic exercise (27825) PLAN FOR NEXT VISIT: Patient demonstrates good [...] computer. Pt. is currenlty in treatment for men jazmine health and DM II issues. Pt. is pleasant and cooperative. Pt. sister sees him every weekend. Pt. lives with his parents in [place]. Patient Goals: walking up and down stairs [...] Demonstration TREATMENT: PT Treatment Interventions: Therapeutic Exercise, Self-Fdc Management Evaluation Therapeutic Exercise: 1: *Access Code: [email or web address] URL: [email or web address] Date: 07/30/2024 Prepared by: Neha Gayle Exercises - Seated Sciatic Tensioner - 1-2 x daily - 7 x weekly - 3 sets - 5 reps- 2 hold - Sit to Stand with [...] exercises in regards to decreasing fatigue , includingbalance, increase ease of ADL, and ROM and function . Patient education as noted. Self-Fdc Management: 1: encouraged pt. to move at [...] Stop Time : 1150 Neha Driver PT * Neha Driver PT - 07/30/2024 11:34 AM EDT Program_ID:[id number] Access Code: [email or web address] URL: [email or web address] Date: 07-30-2024 Prepared By: Neha Driver Program [...] sets - 15 reps documented [facility] encounterB[facility] ClinicEvaluation noteNo assessment information availableWBerger Hospital Work Phone: Evaluation note* Diagnosis Onset Date Resolution Status Diabetes chronic Hypothyroidism chronic Diabetes chronic Hypothyroidism chronic [facility] Work Phone: Evaluation note* Diagnosis Onset Date Resolution Status Overweight acute Diabetes chronic Hypothyroidism chronic Diabetes chronic Hypothyroidism chronic [facility] Work Phone: Evaluation note* Diagnosis Onset Date Resolution Status Elevated liver enzymes chron ic [facility] Work Phone: Evaluation note* Diagnosis Onset Date Resolution Status Diabetes chronic Hypothyroidism chronic Overweight chronic Elevated liver enzymes [facility] ic Diabetes chronic Hypothyroidism chronic Overweight chronic [facility] Work Phone: Evaluation note* Diagnosis Weakness of left lower extremity- Primary documented in this encounter [facility] note* Diagnosis Weakness of left lower extremity- Primary documented in this encounter [facility] note* Diagnosis Weakness of left lower extremity- Primary documented in this encounter [facility] note* Diagnosis Weakness of left lower extremity- Primary documented in this encounter [facility] note* Diagnosis Weakness of left lower extremity- Primary documented in this encounter [facility] note* Diagnosis Weakness of left lower extremity- Primary documented in this encounter [facility] note* Diagnosis Weakness of left lower extremity- Primary documented in this encounter [facility] for referral (narrative)No reason for referral information availableWBerger Hospital Work Phone: Summary Purpose Family History No [...] Do you have a Healthcare Power of Head Rose Grower? No December 19, 2024 10:45pm Advance Directive Response Recorded Date/ Time Do you have a Healthcare Power of Head Rose Grower? Yes May 02, 2025 12:03am Advance Directive Response Recorded Date/ Time Do you have a Healthcare Power of Head Rose Grower? No May 14, 2025 3:34pm Do you have a Healthcare Power of Head Rose Grower? Yes May 02, 2025 12:03am Chief Complaint and Reason for Visit Chief Complaint EORDER FROM DR LUNA INTERIANO ALSO Chief Complaint 7 w fu 3 [...] 9:22pm HYPERGLYCEMIA April 06, 2025 5:52p m Chief Complaint Admit Date HYPERGLYCEMIA April 06, 2025 5:52p m overdose May 01, 2025 11:5 6pm Chief Complaint Admit Date HYPERGLYCEMIA April 06, 2025 5:52p m overdose May 01, 2025 11:5 6pm MENTAL HEALTH May 14, 2025 1:49 pm Additional Source Comments (unrecognized sect ion and content) No Status Records FoundNo Status Records FoundNo Status Records Found INFORMATION SOURCE (unrecogn ized section and content) DATE CREATED AUTHOR 12/24/2018 [facility] ([place]) DATE CREATED AUTHOR AUTHOR'S ORGANIZ ATION 10/27/2024 [facility] DATE CREATED AUTHOR AUTHOR'S ORGANIZ ATION 08/09/2025 [facility] Goals (unrecognized section and content) Goals [...] Active WILLIAM Gonzalez Attending Provider, Referring Pr willard Active Team Status: Inactive Member Role Status Dates Dr. Denise Reyes MD Primary Care Provider, Referr ing Provider Active Dr. Yasmnay Borges DO Attending Provider Active Team Status: [...] April 03, 2025 End: April 03, 2025 Team Status: Active Member Role/Relationship Status Dates Dr. Denise Reyes MD Primary Care Provider Active Team Status: Inactive Member Role/Relationship Status Dates Dr. Denise Reyes MD Primary Care Provider Active Start: January 30, 2025 End: January 30, 2025 Dr. Denise Reyes MD Attending Provider Active Start: January 30, 2025 End: January 30, 2025 Dr. Denise Reyes MD Referring Provider Active Start: January 30, 2025 End: January 30, 2025 Team Status: Inactive Member Role/Relationship Status Dates Dr. Denise Reyes MD Primary Care Provider Active Start: April 03, 2025 End: April 03, 2025 Dr. Denise Reyes MD Attending Provider Active Start: April 03, 2025 End: April 03, 2025 Team Status: Inactive Member Role/Relationship Status Dates Dr. Denise Reyes MD Primary Care Provider Active Start: April 06, 2025 End: April 06, 2025 Ed Physician Provider Attending Provider Active Start: April 06, 2025 End: April 06, 2025 Ed Physician Provider Emergency Provider Active Start: April 06, 2025 End: April 06, 2025 Team Status: Inactive Member Role/Relationship Status Dates Dr. Denise Reyes MD Primary Care Provider Active Start: May 01, 2025 End: May 02, 2025 Dr. Narayan Mckenzie DO Emergency Provider Active Start: May 01, 2025 End: May 02, 2025 Team Status: Inactive Member Role/Relationship Status Dates Dr. Denise Reyes MD Primary Care Provider Active Start: May 01, 2025 End: May 02, 2025 Dr. Narayan Mckenzie DO Attending Provider Active Start: May 01, 2025 End: May 02, 2025 Dr. Narayan Mckenzie DO Emergency Provider Active Start: May 01, 2025 End: May 02, 2025 Team Status: Inactive Member Role/Relationship Status Dates Dr. Denise Reyes MD Primary Care Provider Active Start: May 14, 2025 End: May 15, 2025 Dr. Timmy Benites DO Referring Provider Active Start: May 14, 2025 End: May 15, 2025 Dr. Timmy Benites DO Emergency Provider Active Start: May 14, 2025 End: May 15, 2025 Source Comments (unrecognize d section and content) In the event this informatio n is protected by the Federal Confidentiality of Alcohol and Drug Abuse Patient Records regulations: The Federal rules restrict any use of the information to criminally investigate or prosecute any alcohol or drug abuse patient.[facility] TroyIn the event this information is protected by the Federal Confidentiality of Alcohol and Drug Abuse Patient Records regulations: The Federal rules restrict any use of the information to criminally investigate or prosecute any alcohol or drug abuse patient.[facility] TroyIn the event this information is protected by the Federal Confidentiality of Alcohol and Drug Abuse Patient Records regulations: The Federal rules restrict any use of the information to criminally investigate or prosecute any alcohol or drug abuse patient.[facility] TroyIn the event this information is protected by the Federal Confidentiality of Alcohol and Drug Abuse Patient Records regulations: The Federal rules restrict any use of the information to criminally investigate or prosecute any alcohol or drug abuse patient.[facility] TroyIn the event this information is protected by the Federal Confidentiality of Alcohol and Drug Abuse Patient Records regulations: The Federal rules restrict any use of the information to criminally investigate or prosecute any alcohol or drug abuse patient.[facility] TroyIn the event this information is protected by the Federal Confidentiality of Alcohol and Drug Abuse Patient Records regulations: The Federal rules restrict any use of the information to criminally investigate or prosecute any alcohol or drug abuse patient.[facility] TroyIn the event this information is protected by the Federal Confidentiality of Alcohol and Drug Abuse Patient Records regulations: The Federal rules restrict any use of the information to criminally investigate or prosecute any alcohol or drug abuse patient.[facility] TroyIn the event this information is protected by the Federal Confidentiality of Alcohol and Drug Abuse Patient Records regulations: The Federal rules restrict any use of the information to criminally investigate or prosecute any alcohol or drug abuse patient.[facility] TroyIn the event this information is protected by the Federal Confidentiality of Alcohol and Drug Abuse Patient Records regulations: The Federal rules restrict any use of the information to criminally investigate or prosecute any alcohol or drug abuse patient.[facility] TroyIn the event this information is protected by the Federal Confidentiality of Alcohol and Drug Abuse Patient Records regulations: The Federal rules restrict any use of the information to criminally investigate or prosecute any alcohol or drug abuse patient.[facility] Reason for Visit (unrecogniz ed section and content) Reason Comments PT Discharge Specialty Diagnoses / Procedures Referred By Contac t Referred To Contact Physical Therapy / PHYSICAL THERAPY Diagnoses Leg weakness ( left) Procedures NEW RS PT ORTH Denise Khan MD [address] [place] [id number] Neha Driver, PT Referral ID Status Reason Start Date Expiration Date V isits Requested Visits Authorized [id number] Authorized 11/05/2023 11/04/2024 99 99 Reason Comments [...] BE BASED ON THE PRIMARY CLINICAL RECORDS. [employer] provides no warranty or guarantee of the accuracy or completeness of information in this document.
== END | disposition home or self-care (01) ==
LOC: MTRAD 15:00
PROVIDERS: PCP Family Medicine; Referring Provider Family Medicine; Visit Provider Family Medicine
DX: M25.511 Pain in right shoulder (principal); M25.512 Pain in left shoulder
CPT/HCPCS: 73030

== ENCOUNTER → 2025-08-26 | Outpatient (CLI) | payer MEDICARE, MEDICAID, SELFPAY ==
--- NOTE | 2025-08-26 08:06 | US_ITS ---
PROCEDURE: ABDOMEN LIMITED 08/26/2025 REASON FOR EXAM: SYMPTOMATIC CHOLIETHIASIS TECHNIQUE: Procedure Code: USABDL Modality: US Procedure: ABDOMEN LIMITED COMPARISON: December 19, 2024. FINDINGS: Liver: Diffusely echogenic suggesting fatty infiltration. Borderline hepatomegaly. The liver measures 17.9 cm. Gallbladder: Solitary gallstone measuring 7 mm x 5 mm. Gallbladder wall is not thickened. Common bile duct: Normal measuring 2.7 mm . Pancreas: Visualized portions are unremarkable. The distal body and tail are obscured by bowel gas. Other: Visualized portions of the right kidney are unremarkable. No right upper quadrant ascites. US/Abdomen Limited IMPRESSION: Borderline hepatomegaly. Fatty infiltration of the liver. Solitary gallstone measuring 7 mm x 5 mm. Reading Location: [place] [id number]
== END | disposition home or self-care (01) ==
LOC: US 08:03
PROVIDERS: PCP Family Medicine; Referring Provider Family Medicine; Visit Provider Family Medicine
DX: R10.11 Right upper quadrant pain (principal)
CPT/HCPCS: 76705

== ENCOUNTER → 2025-09-01 | Outpatient (CLI) | payer MEDICARE, MEDICAID, SELFPAY ==
[2025-09-01 18:18] LABS: AST(SGOT) 52 U/L (<=37); Alanine Aminotransfer ALT/SGPT 87 U/L (<=46); Albumin, Serum 4.2 g/dL (3.5-5.0); Alkaline Phosphatase 245 U/L (40-129); Anion Gap 11 (5-15); BUN 22 mg/dL (4-19); BUN/Creat Ratio 27.5 RATIO (10-20); Calcium,Total 10.5 mg/dL (7.6-11.0); Carbon Dioxide 19.5 mmol/L (21.0-32.0); Chloride 107 mmol/L (98-108); Globulin 3.0 g/dL (2.2-4.2); Glucose 128 mg/dL (70-99); Potassium 4.2 mmol/L (3.3-5.1)
== END | disposition home or self-care (01) ==
LOC: MTLAB 15:42
PROVIDERS: PCP Family Medicine; Referring Provider Family Medicine; Visit Provider Family Medicine
DX: E11.8 Type 2 diabetes mellitus with unspecified complications (principal)
CPT/HCPCS: 36415; 80053

== ENCOUNTER → 2025-10-22 | Outpatient (CLI) | payer MEDICARE, MEDICAID, SELFPAY ==
[2025-10-22 09:54] LABS: Mucous, Urine 0 SEEN /hpf (<or=2+); Red Blood Cells-Urine 0 SEEN /hpf (0-5); Squamous Epithelial Cells - UA 0 SEEN /hpf (0-5)
[2025-10-22 12:23] LABS: Color, Urine Yellow (Yellow); Glucose, Dipstick Normal (Normal); Ketone-Dipstick Negative (Negative); Leukocyte Esterase-Dipstick Negative /ul (Negative); Nitrite-Dipstick Negative (Negative); Occult Blood-Urine Negative /ul (Negative); Protein-Dipstick 100 mg/dl (Negative); Specific Gravity, Urine 1.010 (1.002-1.030); Urine Bilirubin Dipstick Negative (Negative)
[2025-10-22 12:35] LABS: Hematocrit 40.8 % (40-54); Hemoglobin 13.0 g/dL (13.0-16.5); Immature Granulocytes Count 0.020 X10^3/uL (0.0-0.0); Mean Corp Hgb Conc 31.9 g/dL (32-36); Mean Corpuscular Volume 89.1 fL (80-94); Mean Platelet Vol. 9.2 fl (6.2-12.0); NRBC Flagged by Analyzer 0 % (0-5); Platelet Count 424 K/mm3 (150-450); RBC Distribution Width CV 13.2 % (11.6-14.6); RBC Distribution Width SD 43.1 fl (35.1-43.9); Red Blood Count 4.58 M/mm3 (4.6-6.2); White Blood Count 11.4 K/mm3 (4.4-11.0)
[2025-10-22 12:52] LABS: AST(SGOT) 54 U/L (<=37); Alanine Aminotransfer ALT/SGPT 121 U/L (<=46); Albumin, Serum 4.2 g/dL (3.5-5.0); Alkaline Phosphatase 137 U/L (40-129); Anion Gap 13 (5-15); BUN 20 mg/dL (4-19); BUN/Creat Ratio 21.8 RATIO (10-20); Calcium,Total 10.4 mg/dL (7.6-11.0); Carbon Dioxide 19.4 mmol/L (21.0-32.0); Chloride 107 mmol/L (98-108); Cholesterol 76 mg/dL (<=200); Ferritin 32 ng/mL (37-417); Globulin 3.1 g/dL (2.2-4.2); Glucose 199 mg/dL (70-99); Low Density Lipoprotein Calc. 17 mg/dL; Potassium 4.2 mmol/L (3.3-5.1); Triglycerides 125 mg/dL; Very Low Density Lipoprotein 25 mg/dL (5-40); Vitamin B12 1176 pg/mL (180-914); cholesterol:hdl ratio screen 2.09
[2025-10-22 13:07] LABS: Creatinine, Urine (random) 45.30 mg/dL (39.00-259.00); Microalbumin,Random Urine 303.0 mg/L (<20 mg/L)
[2025-10-22 13:21] LABS: Iron 45 ug/dL (65-175); Iron Binding Capacity,Total 393 ug/dL (250-450); Iron Binding Capacity,Unsat 348 ug/dL (228-428)
== END | disposition home or self-care (01) ==
LOC: MFPLAB 09:51
PROVIDERS: PCP Family Medicine; Visit Provider Family Medicine
DX: E03.9 Hypothyroidism, unspecified (principal); E11.69 Type 2 diabetes mellitus with other specified complication; D64.9 Anemia, unspecified
CPT/HCPCS: 36415; 80053; 80061; 81001; 82043; 82570; 82607; 82728; 83036; 83540; 83550; 84439; 84443; 85025